=== PATIENT | male | born 1950 | race Caucasian/White ===

== ENCOUNTER → 2017-09-30 11:56 | Outpatient (CLI) | payer MEDICARE, OTHER, SELFPAY ==
[2017-09-30 14:02] LABS: Prostate Specific Ag, Diagnost < 0.05 ng/mL (0.0-4.0)
== END ==
PROVIDERS: Visit Provider Urology
DX: C61 Malignant neoplasm of prostate (principal)
CPT/HCPCS: 36415; 84153

== ENCOUNTER → 2018-04-17 13:31 | Outpatient (CLI) | payer MEDICARE, BC, SELFPAY ==
--- NOTE | 2018-04-17 13:35 | US_ITS ---
US kidney retroperitoneal comp HISTORY: ITS.REASON: renal insuffiency ORDERING PHYSICIAN: Jason Witt MD PATIENT AGE: 68 years Comparison: None FINDINGS: RIGHT KIDNEY:Unremarkable. Normal size and echogenicity. No hydronephrosis. 12 x 6 x 7 cm. No cortical thinning. LEFT KIDNEY:Unremarkable. No hydronephrosis. Normal size and echogenicity. 12 x 6 x 6 cm. No cortical thinning OTHER FINDINGS: Fatty liver noted IMPRESSION: Unremarkable bilateral renal ultrasound
== END ==
PROVIDERS: PCP Nurse Practitioner Family; Visit Provider Urology
DX: N28.9 Disorder of kidney and ureter, unspecified (principal)
CPT/HCPCS: 76770

== ENCOUNTER → 2018-09-02 08:06 | Outpatient (CLI) | payer MEDICARE, BC, SELFPAY ==
--- NOTE | 2018-09-02 08:09 | CT_ITS ---
CT lung screening EXAM: CT LUNG LOW DOSE WO CONTRAST HISTORY: 50 pack-year smoking history, asymptomatic for lung cancer ITS.REASON: CURRENT TOBACCO USE ORDERING PHYSICIAN: Herminio Lakhani MD PATIENT AGE: 68 years COMPARISON: None TECHNIQUE: The exam was performed on a GE Light Speed [address] scanner using 2.90 mGy CTDI. A low dose helical CT CHEST was performed on a multi-detector scanner. All CT scans at the facility use one or more dose reduction, viz: automated exposure control, ma/kV adjustment per patient size (including targeted exams where dose is matched to indication, i.e. head), or iterative reconstruction technique. The LDCT was performed in a facility that meets the criteria for the screening program. Data regarding this exam was submitted to ACR which is an approved registry. The order for this exam indicates that it came as a result of a lung cancer screening counseling shard decision-making visit that included all the elements required of such a visit including smoking cessation. The radiologist interpreting this exam meets the CMS criteria for the LDCT lung cancer screening program. The exam is reported using the Lung-RADS classification scale and reported to the ACR registry. NOTE: This study was performed for the specific purposes of lung cancer screening and is not an alternative to diagnostic chest CT. RADIATION DOSE: CTDI vol(CT dose Index-volume) = 2.90mG DLP (Dose Length Product) = 104.20 mGcm FINDINGS: Hyperinflation with attenuation of the peripheral pulmonary vessels consistent with COPD. There is prominence of the interstitial markings in the periphery of the lung and lung bases with fibrotic changes in the left lower lobe. There is a 6 mm noncalcified nodule in the right middle lobe. Small area of focal fissural thickening in the right minor fissure noted at 7 mm. There is a 4 mm nodule in the left lower lobe Incidental note made of coronary artery calcification. IMPRESSION: 1. Lung RADS Category: 3, probably benign 2. Other findings: Coronary artery calcification, COPD with pulmonary fibrotic changes RECOMMENDATIONS: [address] chest follow-up
== END ==
PROVIDERS: PCP Family Medicine; Visit Provider Family Medicine
DX: Z12.2 Encounter for screening for malignant neoplasm of respiratory organs (principal); Z87.891 Personal history of nicotine dependence

== ENCOUNTER → 2018-10-13 11:21 | Outpatient (CLI) | payer MEDICARE, BC, SELFPAY ==
[2018-10-14 14:48] LABS: PSA, Free <0.01 ng/mL; Prostate Specific Ag <0.1 ng/mL (0.0-4.0)
== END ==
PROVIDERS: Visit Provider Urology
DX: N20.0 Calculus of kidney (principal); C61 Malignant neoplasm of prostate
CPT/HCPCS: 36415; 84153; 84154

== ENCOUNTER → 2019-06-21 08:06 | Outpatient (CLI) | payer MEDICARE, BC, SELFPAY ==
[2019-06-21 08:12] LABS: Microscopic, Urine URINE MICROSCOPIC (MICROSCOPIC)
[2019-06-21 14:21] LABS: Chloride 105 mmol/L (98-107); Sodium 140 mmol/L (136-145)
[2019-06-21 14:22] LABS: Albumin Level 4.5 g/dl (3.5-5.0); Potassium 4.5 mmoL/L (3.5-5.1)
[2019-06-21 14:24] LABS: Blood Urea Nitrogen 16 mg/dl (9-20); Estimated Glomerular Filt Rate 74 ml/min (>60); GFR (African American) 89 ML/MIN (>60)
[2019-06-21 14:25] LABS: Anion Gap 13.5 mEq/L (5-15); Carbon Dioxide 26 mmol/L (22.0-30.0); Phosphorous 3.4 mg/dl (2.5-4.5)
[2019-06-21 14:31] LABS: Calcium 9.8 mg/dl (8.4-10.2); Glucose 129 mg/dl (74-100)
[2019-06-21 14:34] LABS: Basophils % 0.3 % (0.1-2.0); Eosinophils # 0.3 K/mm3 (0.0-0.4); Eosinophils % 3.2 % (0.1-12.0); Hematocrit 49.9 % (42.0-52.0); Hemoglobin 15.7 g/dL (14.1-18.0); Lymphocytes % 22.3 % (10-50); Mean Corpuscular HGB Conc 31.5 g/dL (31.8-35.4); Mean Corpuscular Hemoglobin 33.5 pg (27.0-31.2); Mean Corpuscular Volume 106.5 fl (80-94); Mean Platelet Volume 10.3 fl (7.4-10.4); Monocytes # 0.6 K/mm3 (0.1-1.0); Monocytes % 6.9 % (1.7-9.3); Neutrophils # 5.9 K/mm3 (1.8-7.8); Neutrophils % 67.3 % (37.0-80.0); Platelet Count 192 K/mm3 (142-424); Red Blood Count 4.69 M/mm3 (4.60-6.20); Red Cell Distribution Width 13.5 % (11.5-17.5); White Blood Count 8.8 K/mm3 (4.8-10.8)
[2019-06-21 15:12] LABS: Appearance,Urine CLEAR (Clear); Bilirubin,Urine Negative (Negative); Blood, Urine Negative (Negative); Color,Urine YELLOW (Yellow); Glucose,Urine (UA) Negative (Negative); Ketones,Urine Negative (Negative); Leukocyte Esterase,Urine Negative (Negative); Nitrate,Urine Negative (Negative); PH,Urine 6.5 (5.0-8.5); Protein,Urine TRACE (Negative); Specific Gravity, Urine 1.015 (1.005-1.030); Urobilinogen,Urine 0.2 EU/dl (0.2)
[2019-06-21 15:42] LABS: Creatinine,Urine Random 149 mg/dL (Not Estab.)
[2019-06-21 18:19] LABS: RBC,Urine Occasional #/hpf (0-3); Squamous Epithelial Cell,Urine Occasional #/hpf (0-5)
== END ==
PROVIDERS: Visit Provider Hospitalist
DX: N28.9 Disorder of kidney and ureter, unspecified (principal)
CPT/HCPCS: 36415; 80069; 81001; 82570; 84155; 85025

== ENCOUNTER → 2022-02-25 16:00 | Outpatient (CLI) | payer MEDICARE, BC, SELFPAY ==
[2022-02-25 17:57] LABS: Basophils # 0.2 K/mm3 (0-0.2); Basophils % 1.5 % (0.1-2.0); Eosinophils # 0.4 K/mm3 (0.0-0.4); Eosinophils % 3.4 % (0.1-12.0); Hematocrit 47.8 % (42.0-52.0); Hemoglobin 15.3 g/dL (14.1-18.0); Lymphocytes # 3.5 K/mm3 (0.7-4.5); Lymphocytes % 30.5 % (10-50); Mean Corpuscular Hemoglobin 33.4 pg (27.0-31.2); Mean Corpuscular Volume 104.5 fl (80-94); Mean Platelet Volume 9.6 fl (7.4-10.4); Monocytes # 0.9 K/mm3 (0.1-1.0); Monocytes % 7.5 % (1.7-9.3); Neutrophils # 6.5 K/mm3 (1.8-7.8); Neutrophils % 57.1 % (37.0-80.0); Platelet Count 250 K/mm3 (142-424); Red Blood Count 4.58 M/mm3 (4.60-6.20); Red Cell Distribution Width 13.3 % (11.5-17.5); White Blood Count 11.4 K/mm3 (4.8-10.8)
[2022-02-25 19:37] LABS: Alanine Aminotransferase 37 U/L (12-78); Albumin Level 4.7 g/dl (3.5-5.0); Albumin/Globulin Ratio 1.7 (1.1-1.8); Alkaline Phosphatase 96 U/L (38-126); Anion Gap 20.1 mEq/L (5-15); Aspartate Amino Transferase 49 U/L (17-59); Bilirubin,Total 0.5 mg/dl (0.2-1.3); Blood Urea Nitrogen 37 mg/dl (9-20); Carbon Dioxide 22 mmol/L (22.0-30.0); Chloride 103 mmol/L (98-107); Estimated Glomerular Filt Rate 29 ml/min (>60); GFR (African American) 36 ML/MIN (>60); Globulin 2.8 g/dL (1.3-3.2); Glucose 168 mg/dl (74-100); Potassium 5.1 mmoL/L (3.5-5.1); Sodium 140 mmol/L (136-145); Total Protein,Serum 7.5 g/dl (6.3-8.2)
== END ==
PROVIDERS: PCP Family Medicine; Visit Provider Family Medicine
DX: I10 Essential (primary) hypertension (principal)
CPT/HCPCS: 80053; 85025

== ENCOUNTER → 2022-02-26 09:19 | Outpatient (CLI) | payer MEDICARE, BC, SELFPAY ==
--- NOTE | 2022-02-26 09:25 | XR_ITS ---
FINAL REPORT CLINICAL HISTORY: Acute cough FINDINGS: Two views of the chest were obtained. The heart size and pulmonary vascularity are within normal limits. The mediastinum is normal. There are left lung base opacities worrisome for pneumonia. There is no pneumothorax. The bony thorax is intact. IMPRESSION: Left lung base opacities, worrisome for pneumonia. Reviewed, Interpreted and Dictated by Jaycob Bush III, MD Transcribed by Judi Clinton Authenticated and [facility]
== END ==
PROVIDERS: PCP Family Medicine; Visit Provider Family Medicine
DX: R05.9 Cough, unspecified (principal)
CPT/HCPCS: 71046

== ENCOUNTER → 2022-03-04 09:40 | Outpatient (CLI) | payer MEDICARE, BC, SELFPAY ==
[2022-03-04 19:06] LABS: Basophils # 0.1 K/mm3 (0-0.2); Basophils % 0.4 % (0.1-2.0); Eosinophils # 0.3 K/mm3 (0.0-0.4); Eosinophils % 1.7 % (0.1-12.0); Hematocrit 46.5 % (42.0-52.0); Hemoglobin 14.6 g/dL (14.1-18.0); Lymphocytes # 3.3 K/mm3 (0.7-4.5); Lymphocytes % 20.1 % (10-50); Mean Corpuscular HGB Conc 31.3 g/dL (31.8-35.4); Mean Corpuscular Hemoglobin 33.6 pg (27.0-31.2); Mean Corpuscular Volume 107.1 fl (80-94); Mean Platelet Volume 11.2 fl (7.4-10.4); Monocytes % 5.9 % (1.7-9.3); Neutrophils # 11.7 K/mm3 (1.8-7.8); Platelet Count 256 K/mm3 (142-424); Red Blood Count 4.34 M/mm3 (4.60-6.20); Red Cell Distribution Width 13.3 % (11.5-17.5); White Blood Count 16.2 K/mm3 (4.8-10.8)
[2022-03-04 19:13] LABS: Anion Gap 23.8 mEq/L (5-15); Blood Urea Nitrogen 22 mg/dl (9-20); Calcium 9.8 mg/dl (8.4-10.2); Carbon Dioxide 23 mmol/L (22.0-30.0); Chloride 101 mmol/L (98-107); Estimated Glomerular Filt Rate 35 ml/min (>60); GFR (African American) 42 ML/MIN (>60); Glucose 135 mg/dl (74-100); Potassium 4.8 mmoL/L (3.5-5.1); Sodium 143 mmol/L (136-145)
[2022-03-04 19:18] LABS: MANUAL DIFFERENTIAL MANUAL DIFFERENTIAL (MANUAL DIFF)
[2022-03-04 19:32] LABS: Hemoglobin A1C 7.6 % (4.0-6.0)
[2022-03-04 20:19] LABS: Eosinophils % 1 % (0-3); Lymphocytes % 17 % (10-50); Monocytes % 6 % (2-9); Neutrophils % 76 % (42-76); Total Cells Counted 100
[2022-03-04 20:20] LABS: Macrocytosis 2+
[2022-03-04 20:21] LABS: Platelet Estimate Normal
== END ==
PROVIDERS: PCP Family Medicine; Visit Provider Family Medicine
DX: E11.59 Type 2 diabetes mellitus with other circulatory complications (principal); I15.2 Hypertension secondary to endocrine disorders; N28.9 Disorder of kidney and ureter, unspecified; Z79.84 Long term (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 oral hypoglycemic drugs
CPT/HCPCS: 80048; 83036; 85007; 85025

== ENCOUNTER → 2022-03-11 09:00 | Outpatient (CLI) | payer MEDICARE, BC, SELFPAY ==
[2022-03-11 19:07] LABS: Anion Gap 14.3 mEq/L (5-15); Blood Urea Nitrogen 20 mg/dl (9-20); Carbon Dioxide 27 mmol/L (22.0-30.0); Chloride 105 mmol/L (98-107); Estimated Glomerular Filt Rate 43 ml/min (>60); GFR (African American) 52 ML/MIN (>60); Glucose 152 mg/dl (74-100); Potassium 5.3 mmoL/L (3.5-5.1); Sodium 141 mmol/L (136-145)
[2022-03-11 19:28] LABS: Basophils # 0.1 K/mm3 (0-0.2); Basophils % 0.6 % (0.1-2.0); Eosinophils # 0.3 K/mm3 (0.0-0.4); Eosinophils % 2.7 % (0.1-12.0); Hematocrit 48.3 % (42.0-52.0); Hemoglobin 14.9 g/dL (14.1-18.0); Lymphocytes # 2.6 K/mm3 (0.7-4.5); Lymphocytes % 23.5 % (10-50); Mean Corpuscular HGB Conc 30.8 g/dL (31.8-35.4); Mean Corpuscular Hemoglobin 33.3 pg (27.0-31.2); Mean Platelet Volume 10.5 fl (7.4-10.4); Monocytes # 0.8 K/mm3 (0.1-1.0); Monocytes % 7.7 % (1.7-9.3); Neutrophils # 7.2 K/mm3 (1.8-7.8); Neutrophils % 65.5 % (37.0-80.0); Platelet Count 236 K/mm3 (142-424); Red Blood Count 4.47 M/mm3 (4.60-6.20); Red Cell Distribution Width 13.9 % (11.5-17.5)
[2022-03-11 19:44] LABS: Creatinine,Urine Random 256 mg/dL (Not Estab.); Microalbumin/Creatinine Ratio 119.9
== END ==
PROVIDERS: PCP Nurse Practitioner Family; Visit Provider Nurse Practitioner Family
DX: E11.59 Type 2 diabetes mellitus with other circulatory complications; I15.2 Hypertension secondary to endocrine disorders; Z79.84 Long term (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 oral hypoglycemic drugs
CPT/HCPCS: 80048; 82043; 82570; 85025

== ENCOUNTER → 2022-03-19 11:44 | Outpatient (CLI) | payer MEDICARE, BC, SELFPAY ==
--- NOTE | 2022-03-19 12:29 | XR_ITS ---
FINAL REPORT CLINICAL HISTORY: left rib pain COMPARISON: Prior chest x-ray dated February 2022 FINDINGS: LEFT RIBS WITH CHEST Multiple views of the left ribs were obtained. There is no acute fracture. No pneumothorax is identified. A single PA view of the chest demonstrates mild left base opacity that could represent atelectasis or pneumonia. IMPRESSION: No rib fracture or pneumothorax identified. Mild left base opacity could represent pneumonia or atelectasis. Reviewed, Interpreted and Dictated by Jaycob Bush III, MD Transcribed by Chico Garcia Authenticated and [facility]
== END ==
LOC: ER 12:01 → RAD 12:24
PROVIDERS: PCP Family Medicine; Visit Provider Emergency Medicine
DX: R07.81 Pleurodynia (principal); M25.522 Pain in left elbow; S51.012A Laceration without foreign body of left elbow, initial encounter
CPT/HCPCS: 71101; 87070; 87077; 87186; 87205

== ENCOUNTER → 2022-04-19 10:49 | Outpatient (CLI) | payer MEDICARE, BC, SELFPAY ==
--- NOTE | 2022-04-19 10:49 | CT_ITS ---
FINAL REPORT TECHNIQUE: Thin section axial CT images of the facial bones and sinuses were obtained without contrast. Coronal reformatted images were also obtained.This study was performed with techniques to keep radiation doses as low as reasonably achievable, (ALARA). Individualized dose reduction techniques using automated exposure control or adjustment of mA and/or kV according to the patient''''s size were employed. CLINICAL HISTORY: sinusitis FINDINGS: There is no evidence of mucosal thickening. No fluid levels are identified. The ostiomeatal units have an unremarkable appearance. There is a left-sided nasal septal spur. Nasal septum is midline. No fracture or acute bony abnormality is identified. IMPRESSION: No focal abnormality identified of the sinuses. Reviewed, Interpreted and Dictated by Jaycob Bush III, MD Transcribed by Gaviota Santos Authenticated and [facility]
== END ==
PROVIDERS: PCP Family Medicine; Visit Provider Otolaryngology
DX: J32.8 Other chronic sinusitis (principal)
CPT/HCPCS: 70486

== ENCOUNTER → 2022-05-09 10:39 | Outpatient (CLI) | payer MEDICARE, BC, SELFPAY ==
--- NOTE | 2022-05-09 10:43 | XR_ITS ---
FINAL REPORT CLINICAL HISTORY: follow up pneumonia, cough, congestion COMPARISON: 03/19/2022 FINDINGS: Two views of the chest were obtained. The heart size and pulmonary vascularity are within normal limits. The mediastinum is normal. There are persistent mild bibasilar opacities, favor scarring or atelectasis.. There is no pneumothorax. The bony thorax is intact. IMPRESSION: Persistent mild bibasal opacities. Reviewed, Interpreted and Dictated by Jaycob Bush III, MD Transcribed by Sophia Simeon Authenticated and [facility]
== END ==
PROVIDERS: PCP Family Medicine; Visit Provider Family Medicine
DX: J18.9 Pneumonia, unspecified organism (principal)
CPT/HCPCS: 71046

== ENCOUNTER → 2022-07-02 09:40 | Outpatient (CLI) | payer MEDICARE, BC, SELFPAY ==
[2022-07-02 16:46] LABS: Alanine Aminotransferase 37 U/L (12-78); Albumin Level 4.7 g/dl (3.5-5.0); Albumin/Globulin Ratio 1.7 (1.1-1.8); Alkaline Phosphatase 100 U/L (38-126); Anion Gap 15.2 mEq/L (5-15); Aspartate Amino Transferase 45 U/L (17-59); Bilirubin,Total 0.7 mg/dl (0.2-1.3); Blood Urea Nitrogen 20 mg/dl (9-20); Calcium 9.3 mg/dl (8.4-10.2); Carbon Dioxide 26 mmol/L (22.0-30.0); Chloride 103 mmol/L (98-107); Chol/HDL Ratio 2.4 (1-3.5); Cholesterol 120 mg/dl (140-200); Estimated Glomerular Filt Rate 54 ml/min (>60); GFR (African American) 65 ML/MIN (>60); Globulin 2.8 g/dL (1.3-3.2); Glucose 146 mg/dl (74-100); HDL Cholesterol 50 mg/dl (40-60); Potassium 5.2 mmoL/L (3.5-5.1); Sodium 139 mmol/L (136-145); Total Protein,Serum 7.5 g/dl (6.3-8.2); Triglycerides 152 mg/dl (30-150); VLDL Cholesterol 30 mg/dL (0-40)
[2022-07-02 16:57] LABS: Basophils # 0.1 K/mm3 (0-0.2); Basophils % 0.5 % (0.1-2.0); Direct LDL Cholesterol 53.47 mg/dL (100-129); Eosinophils # 0.3 K/mm3 (0.0-0.4); Eosinophils % 2.3 % (0.1-12.0); Hematocrit 49.4 % (42.0-52.0); Hemoglobin 15.7 g/dL (14.1-18.0); Lymphocytes # 2.2 K/mm3 (0.7-4.5); Lymphocytes % 18.8 % (10-50); Mean Corpuscular HGB Conc 31.7 g/dL (31.8-35.4); Mean Corpuscular Hemoglobin 32.6 pg (27.0-31.2); Mean Corpuscular Volume 102.9 fl (80-94); Mean Platelet Volume 10.7 fl (7.4-10.4); Monocytes # 0.8 K/mm3 (0.1-1.0); Neutrophils # 8.3 K/mm3 (1.8-7.8); Neutrophils % 71.4 % (37.0-80.0); Platelet Count 239 K/mm3 (142-424); Red Cell Distribution Width 13.3 % (11.5-17.5); White Blood Count 11.6 K/mm3 (4.8-10.8)
[2022-07-02 17:12] LABS: Hemoglobin A1C 7.3 % (4.0-6.0)
[2022-07-02 17:17] LABS: Thyroid Stimulating Hormone 1.42 uIU/mL (0.465-4.68)
== END ==
PROVIDERS: PCP Family Medicine; Visit Provider Family Medicine
DX: I10 Essential (primary) hypertension; Z00.00 Encounter for general adult medical examination without abnormal findings; E11.9 Type 2 diabetes mellitus without complications; Z79.84 Long term (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 oral hypoglycemic drugs; Z79.899 Other long term (current) drug therapy
CPT/HCPCS: 80053; 80061; 83036; 84443; 85025

== ENCOUNTER → 2022-07-16 09:26 | Outpatient (CLI) | payer MEDICARE, BC, SELFPAY ==
--- NOTE | 2022-07-16 09:32 | US_ITS ---
FINAL REPORT CLINICAL HISTORY: RUQ and RLQ abdominal pain FINDINGS: Sonographic images of the abdomen were obtained. There is coarsened hepatic echotexture of uncertain significance but can be seen with cirrhosis. There is a gallstone in the gallbladder. There is no evidence of biliary ductal dilatation. The common hepatic duct measures 2 mm, which is within normal limits. Limited images of the pancreas are unremarkable. The spleen size is normal. The right kidney measures 10.7 cm in length. The left kidney measures 11.6 cm in length. There is normal renal echogenicity. There is no evidence of hydronephrosis. The aorta has an unremarkable appearance. Limited images of the inferior vena cava are unremarkable. IMPRESSION: Possible cirrhosis. Cholelithiasis. Reviewed, Interpreted and Dictated by Jaycob Bush III, MD Transcribed by Yue Machado Authenticated and [facility]
== END ==
PROVIDERS: PCP Family Medicine; Visit Provider Family Medicine
DX: R10.9 Unspecified abdominal pain (principal)
CPT/HCPCS: 76700

== ENCOUNTER → 2022-08-08 11:02 | Outpatient (CLI) | payer MEDICARE, BC, SELFPAY ==
--- NOTE | 2022-08-08 11:22 | XR_ITS ---
FINAL REPORT CLINICAL HISTORY: Chronic cough COMPARISON: 05/09/2022 FINDINGS: There is no evidence of effusion or other pleural disease. There are chronic interstitial changes. The mediastinum has a normal appearance. The cardiac silhouette is unremarkable. IMPRESSION: No acute process. Reviewed, Interpreted and Dictated by Dev Martinez MD Transcribed by Jyoti Castellano Authenticated and . [facility]
[2022-08-09 12:37] LABS: AFP, Tumor Marker 3.3 ng/mL (0.0-8.4)
[2022-08-24 17:48] LABS: Alpha 2-Macroglobulins, Qn 433; Apolipoprotein A-1 159; Haptoglobin 243
[2022-08-24 17:49] LABS: ALT (SGPT) P5P 24; AST (SGOT) P5P 32; Bilirubin, Total 0.4; Cholesterol, Total 131; GGT 93; Glucose 197; Triglycerides 174
== END ==
PROVIDERS: PCP Family Medicine; Visit Provider Nurse Practitioner
DX: K74.60 Unspecified cirrhosis of liver (principal)
CPT/HCPCS: 36415; 71046; 82105

== ENCOUNTER 2022-09-05 10:16 | Day surgery (SDC) | payer MEDICARE, BC, SELFPAY ==
[2022-08-21 12:58] VITALS: BMI 30.5
[2022-09-05] VITALS (7 sets, daily range): BP systolic 110–156; BP diastolic 58–82; PULSE 58–69; RESP 14–18; TEMP 36.1–36.5; O2SAT 95–98; BMI 30.5
[2022-09-05 10:42] LABS: POC Glucose,Bedside 163 (70-110)
--- NOTE | 2022-09-05 11:08 | EXP.ANES.CKL ---
[facility] Disclaimer: The information contained in this section may have been updated after the patient was seen, as this information can be updated by other users. Medical History Anal fissure Cirrhosis of liver COPD (chronic obstructive pulmonary disease) Diabetes type 2, controlled ETD (eustachian tube dysfunction) GERD (gastroesophageal reflux disease) History of hemorrhoids History of rectal fissure Hyperlipidemia associated with type 2 diabetes mellitus Hypertension associated with diabetes Prostate cancer Renal insufficiency Torn Achilles tendon Surgical History History of colonoscopy History of hand surgery History of hernia repair History of prostate surgery History of tonsillectomy Hx of hemorrhoidectomy Family History Father Cancer Heart attack Stroke Mother Heart attack Stroke Social History Smoking Status: Current every day smoker tobacco type: cigarettes packs per day: 1 pack-years: 60 alcohol intake: never substance use type: denies use current occupational status: retired Travel in the last 8 weeks: None household members: spouse housing: house marital status: education level: vocational service: No caffeine: Yes special roxanne needs: No do you feel safe at home: Yes victim of physical abuse: No victim of emotional abuse: No victim of sexual abuse: No would you like helpful sources: No [facility] Anesthesia Checklist Patient Identification Patient Identification: Verbal (Name & ) Structural Data Admitted From: Home Planned Operative Procedure/s: colonoscopy Consent for Planned Operative Procedure(s) Verified: Yes Airway Assessment C-Spine Mobility Assessed: Yes TMJ Mobility Assessed: Yes Dentition: Poor Dentition Neurological Assessment Level of Consciousness: Awake, Alert and Appropriate Anesthesia Plan Anesthesia Risk discussed: Yes Anesthesia Plan: Verified ASA Class: III Anesthesia Type: MAC
--- NOTE | 2022-09-05 11:20 | EXP.ANES.CKL ---
[facility] Disclaimer: The information contained in this section may have been updated after the patient was seen, as this information can be updated by other users. Medical History Anal fissure Cirrhosis of liver COPD (chronic obstructive pulmonary disease) Diabetes type 2, controlled ETD (eustachian tube dysfunction) GERD (gastroesophageal reflux disease) History of hemorrhoids History of rectal fissure Hyperlipidemia associated with type 2 diabetes mellitus Hypertension associated with diabetes Prostate cancer Renal insufficiency Torn Achilles tendon Surgical History History of colonoscopy History of hand surgery History of hernia repair History of prostate surgery History of tonsillectomy Hx of hemorrhoidectomy Family History Father Cancer Heart attack Stroke Mother Heart attack Stroke Social History Smoking Status: Current every day smoker tobacco type: cigarettes packs per day: 1 pack-years: 60 alcohol intake: never substance use type: denies use current occupational status: retired Travel in the last 8 weeks: None household members: spouse housing: house marital status: education level: vocational service: No caffeine: Yes special roxanne needs: No do you feel safe at home: Yes victim of physical abuse: No victim of emotional abuse: No victim of sexual abuse: No would you like helpful sources: No [facility] Anesthesia Checklist Patient Identification Patient Identification: Verbal (Name & ) Structural Data Admitted From: Home Planned Operative Procedure/s: colonoscopy Consent for Planned Operative Procedure(s) Verified: Yes Airway Assessment C-Spine Mobility Assessed: Yes TMJ Mobility Assessed: Yes Dentition: Good Dentition Neurological Assessment Level of Consciousness: Awake, Alert and Appropriate Anesthesia Plan Anesthesia Risk discussed: Yes Anesthesia Plan: Verified ASA Class: II Anesthesia Type: MAC
--- NOTE | 2022-09-05 11:40 | HMH.SCOPE ---
Procedure: Date: 09/05/22 Patient Date of :: 1950 Procedure Performed:: Screening colonoscopy Indications:: Family history of colon cancer, chronic abdominal pain Performing Provider:: Elly Nieves MD Referring Provider:: Ene Nieves APRN Sedation:: Propofol Procedure:: After placing the patient in the left lateral decubitus position, the colonoscopy was gently inserted into the rectum and under direct visualization advanced to the cecum which was identified by transillumination in the right lower quadrant, identification of the ileocecal valve, appendiceal orifice, and cecal strap. Color, texture, mucosa, and anatomy of the colon were carefully examined with the scope. Findings:: Anal canal: normal Rectum: normal Sigmoid colon: normal without polyps or inflammatory changes Descending colon: normal without polyps or inflammatory changes Splenic flexure: normal Transverse colon: normal without polyps or inflammatory changes Hepatic flexure: normal Ascending colon: normal without polyps or inflammatory changes Cecum: normal Terminal ileum: not visualized Impression: Normal colonoscopy Pain most likely related to adhesion and mesh Recommendations:: Follow up examination in about FIVE years or so, sooner if clinically indicated. Complications:: None Estimated blood obtained (mL): 0
== END 2022-09-05 12:25 | disposition home or self-care (01) ==
PROVIDERS: PCP Family Medicine; Visit Provider Internal Medicine Gastroenterology
PROC: 0DJD8ZZ Inspection of Lower Intestinal Tract, Via Natural or Artificial Opening Endoscopic (ICD-10-PCS; CPT 45378; principal; 2022-09-05 11:30)
DX: R10.9 Unspecified abdominal pain (principal); G89.29 Other chronic pain; E11.9 Type 2 diabetes mellitus without complications; F17.210 Nicotine dependence, cigarettes, uncomplicated; Z80.0 Family history of malignant neoplasm of digestive organs; Z79.899 Other long term (current) drug therapy
CPT/HCPCS: G0105; 82962

== ENCOUNTER → 2022-10-02 11:17 | Outpatient (CLI) | payer MEDICARE, BC, SELFPAY ==
--- NOTE | 2022-10-02 11:20 | XR_ITS ---
FINAL REPORT CLINICAL HISTORY: Left elbow pain COMPARISON: None FINDINGS: 2 views of the elbow were obtained. There is no acute fracture or dislocation. There is mild degenerative change. There is a chronic calcification adjacent to the medial humeral epicondyles measuring 13 mm. IMPRESSION: No acute bony abnormality. Reviewed, Interpreted and Dictated by Jaycob Bush III, MD Transcribed by Sophia Simeon Authenticated and . [facility]
== END ==
PROVIDERS: PCP Family Medicine; Visit Provider Family Medicine
DX: M25.522 Pain in left elbow (principal)
CPT/HCPCS: 73070

== ENCOUNTER → 2022-10-31 23:35 | Outpatient (CLI) | payer MEDICARE, BC, SELFPAY ==
[2022-10-31 16:31] LABS: Basophils % 0.3 % (0.1-2.0); Eosinophils # 0.3 K/mm3 (0.0-0.4); Eosinophils % 2.2 % (0.1-12.0); Hematocrit 51.1 % (42.0-52.0); Lymphocytes # 2.4 K/mm3 (0.7-4.5); Lymphocytes % 19.7 % (10-50); Mean Corpuscular HGB Conc 31.3 g/dL (31.8-35.4); Mean Corpuscular Hemoglobin 32.2 pg (27.0-31.2); Mean Corpuscular Volume 102.9 fl (80-94); Mean Platelet Volume 11.5 fl (7.4-10.4); Monocytes % 7.8 % (1.7-9.3); Neutrophils # 8.5 K/mm3 (1.8-7.8); Neutrophils % 69.9 % (37.0-80.0); Platelet Count 193 K/mm3 (142-424); Red Blood Count 4.97 M/mm3 (4.60-6.20); Red Cell Distribution Width 13.9 % (11.5-17.5); White Blood Count 12.2 K/mm3 (4.8-10.8)
[2022-10-31 16:37] LABS: Chloride 108 mmol/L (98-107); Potassium 5.1 mmoL/L (3.5-5.1); Sodium 140 mmol/L (136-145)
[2022-10-31 16:39] LABS: Blood Urea Nitrogen 18 mg/dl (9-20); Estimated Glomerular Filt Rate 50 ml/min (>60); GFR (African American) 60 ML/MIN (>60)
[2022-10-31 16:40] LABS: Alanine Aminotransferase 34 U/L (12-78); Albumin Level 4.6 g/dl (3.5-5.0); Albumin/Globulin Ratio 1.6 (1.1-1.8); Alkaline Phosphatase 105 U/L (38-126); Anion Gap 14.1 mEq/L (5-15); Aspartate Amino Transferase 46 U/L (17-59); Bilirubin,Total 0.7 mg/dl (0.2-1.3); Calcium 10.1 mg/dl (8.4-10.2); Carbon Dioxide 23 mmol/L (22.0-30.0); Chol/HDL Ratio 2.6 (1-3.5); Cholesterol 138 mg/dl (140-200); Globulin 2.8 g/dL (1.3-3.2); Glucose 118 mg/dl (74-100); HDL Cholesterol 53 mg/dl (40-60); Total Protein,Serum 7.4 g/dl (6.3-8.2); Triglycerides 243 mg/dl (30-150); VLDL Cholesterol 49 mg/dL (0-40)
[2022-10-31 16:51] LABS: Direct LDL Cholesterol 64.48 mg/dL (100-129)
[2022-10-31 17:50] LABS: Hemoglobin A1C 7.2 % (4.0-6.0)
[2022-10-31 17:51] LABS: Creatinine,Urine Random 342 mg/dL (Not Estab.)
[2022-10-31 21:36] LABS: Microalbumin/Creatinine Ratio 170.4
== END ==
PROVIDERS: PCP Family Medicine; Visit Provider Family Medicine
DX: E11.9 Type 2 diabetes mellitus without complications (principal); I10 Essential (primary) hypertension; Z79.84 Long term (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 oral hypoglycemic drugs
CPT/HCPCS: 80053; 80061; 82043; 82570; 83036; 85025

== ENCOUNTER → 2023-02-25 08:52 | Outpatient (CLI) | payer MEDICARE, BC, SELFPAY ==
[2023-02-25 17:32] LABS: Basophils # 0.1 K/mm3 (0-0.2); Basophils % 0.4 % (0.1-2.0); Eosinophils # 0.2 K/mm3 (0.0-0.4); Eosinophils % 1.1 % (0.1-12.0); Hematocrit 50.2 % (42.0-52.0); Hemoglobin 16.4 g/dL (14.1-18.0); Mean Corpuscular HGB Conc 32.7 g/dL (31.8-35.4); Mean Corpuscular Hemoglobin 34.3 pg (27.0-31.2); Mean Platelet Volume 10.5 fl (7.4-10.4); Monocytes # 0.8 K/mm3 (0.1-1.0); Monocytes % 5.9 % (1.7-9.3); Neutrophils # 9.5 K/mm3 (1.8-7.8); Neutrophils % 70.7 % (37.0-80.0); Platelet Count 222 K/mm3 (142-424); Red Blood Count 4.78 M/mm3 (4.60-6.20); Red Cell Distribution Width 13.3 % (11.5-17.5); White Blood Count 13.5 K/mm3 (4.8-10.8)
[2023-02-25 18:08] LABS: Alanine Aminotransferase 29 U/L (12-78); Albumin Level 4.3 g/dl (3.5-5.0); Albumin/Globulin Ratio 1.5 (1.1-1.8); Alkaline Phosphatase 72 U/L (38-126); Anion Gap 12.9 mEq/L (5-15); Aspartate Amino Transferase 37 U/L (17-59); Bilirubin,Total 0.7 mg/dl (0.2-1.3); Blood Urea Nitrogen 27 mg/dl (9-20); Calcium 9.6 mg/dl (8.4-10.2); Carbon Dioxide 29 mmol/L (22.0-30.0); Chloride 101 mmol/L (98-107); Chol/HDL Ratio 2.4 (1-3.5); Cholesterol 124 mg/dl (140-200); Estimated Glomerular Filt Rate 46 ml/min (>60); GFR (African American) 55 ML/MIN (>60); Globulin 2.8 g/dL (1.3-3.2); Glucose 91 mg/dl (74-100); HDL Cholesterol 51 mg/dl (40-60); Potassium 5.9 mmoL/L (3.5-5.1); Sodium 137 mmol/L (136-145); Total Protein,Serum 7.1 g/dl (6.3-8.2); Triglycerides 125 mg/dl (30-150); VLDL Cholesterol 25 mg/dL (0-40)
[2023-02-25 18:19] LABS: Direct LDL Cholesterol 62.43 mg/dL (100-129)
[2023-02-25 18:32] LABS: Hemoglobin A1C 6.6 % (4.0-6.0)
== END ==
PROVIDERS: PCP Family Medicine; Visit Provider Family Medicine
DX: I10 Essential (primary) hypertension (principal); Z00.00 Encounter for general adult medical examination without abnormal findings; E11.8 Type 2 diabetes mellitus with unspecified complications; Z79.84 Long term (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 oral hypoglycemic drugs; Z72.0 Tobacco use
CPT/HCPCS: 80053; 80061; 83036; 85025

== ENCOUNTER → 2023-02-26 07:35 | Outpatient (CLI) | payer MEDICARE, BC, SELFPAY ==
--- NOTE | 2023-02-26 07:35 | US_ITS ---
FINAL REPORT CLINICAL HISTORY: f/u on u/s 06/2022--- six month f/u eval COMPARISON: 07/16/2022 FINDINGS: Sonographic images of the right upper quadrant were obtained. The pancreas is unremarkable in appearance. There is persistent coarsening of the echotexture of the liver, that may represent fatty infiltration or cirrhosis. There is a gallstone present in the gallbladder. There is no evidence of biliary ductal dilatation.The common duct measures 3 mm. Limited images of the right kidney are unremarkable. IMPRESSION: Coarsening of the echotexture of the liver, fatty infiltration or cirrhosis, unchanged since the prior ultrasound of July. Gallstone present in the gallbladder without biliary ductal dilatation. Reviewed, Interpreted and Dictated by Jaycob Bush III, MD Transcribed by Machelle Aceves Authenticated and [facility]
== END ==
PROVIDERS: PCP Family Medicine; Visit Provider Nurse Practitioner
DX: K74.60 Unspecified cirrhosis of liver (principal)
CPT/HCPCS: 76705

== ENCOUNTER → 2023-03-07 07:07 | Outpatient (CLI) | payer MEDICARE, BC, SELFPAY ==
[2023-03-07 07:51] LABS: INR 0.95 (0.9-1.1); Prothrombin Time 10.3 seconds (10.1-12.5)
[2023-03-12 21:13] LABS: Fibrosis Score 0.76
[2023-03-12 21:14] LABS: Fibrosis Stage F4
[2023-03-12 21:15] LABS: Steatosis Score 0.67
[2023-03-12 21:16] LABS: NASH Grade N3; NASH Score 0.89; Steatosis Grade S2-S3
[2023-03-12 21:17] LABS: ALT (SGPT) P5P 39; AST (SGOT) P5P 36; Alpha 2-Macroglobulins, Qn 470; Apolipoprotein A-1 176; Bilirubin, Total 0.6; GGT 148; Haptoglobin 259
[2023-03-12 21:18] LABS: Cholesterol, Total 151; Glucose 157; Triglycerides 159
== END ==
PROVIDERS: PCP Family Medicine; Visit Provider Nurse Practitioner
DX: K76.0 Fatty (change of) liver, not elsewhere classified (principal); R10.9 Unspecified abdominal pain
CPT/HCPCS: 36415; 85610

== ENCOUNTER → 2023-03-27 09:25 | Outpatient (CLI) | payer MEDICARE, BC, SELFPAY ==
[2023-03-27 10:10] LABS: Basophils # 0.1 K/mm3 (0-0.2); Basophils % 0.6 % (0.1-2.0); Eosinophils # 0.2 K/mm3 (0.0-0.4); Eosinophils % 2.1 % (0.1-12.0); Hematocrit 50.4 % (42.0-52.0); Hemoglobin 16.5 g/dL (14.1-18.0); Lymphocytes # 2.3 K/mm3 (0.7-4.5); Lymphocytes % 27.8 % (10-50); Mean Corpuscular HGB Conc 32.8 g/dL (31.8-35.4); Mean Corpuscular Hemoglobin 34.4 pg (27.0-31.2); Mean Corpuscular Volume 104.9 fl (80-94); Mean Platelet Volume 9.5 fl (7.4-10.4); Monocytes # 0.7 K/mm3 (0.1-1.0); Monocytes % 8.2 % (1.7-9.3); Neutrophils % 61.4 % (37.0-80.0); Platelet Count 168 K/mm3 (142-424); Red Blood Count 4.81 M/mm3 (4.60-6.20); Red Cell Distribution Width 13.5 % (11.5-17.5); White Blood Count 8.2 K/mm3 (4.8-10.8)
[2023-03-27 10:18] LABS: INR 0.95 (0.9-1.1); Prothrombin Time 10.3 seconds (10.1-12.5)
[2023-03-27 11:01] LABS: Chloride 102 mmol/L (98-107); Sodium 140 mmol/L (136-145)
[2023-03-27 11:04] LABS: Alanine Aminotransferase 39 U/L (12-78); Albumin Level 4.9 g/dl (3.5-5.0); Albumin/Globulin Ratio 1.8 (1.1-1.8); Alkaline Phosphatase 96 U/L (38-126); Aspartate Amino Transferase 49 U/L (17-59); Bilirubin,Total 0.8 mg/dl (0.2-1.3); Blood Urea Nitrogen 37 mg/dl (9-20); Carbon Dioxide 26 mmol/L (22.0-30.0); Estimated Glomerular Filt Rate 35 ml/min (>60); GFR (African American) 42 ML/MIN (>60); Globulin 2.8 g/dL (1.3-3.2); Total Protein,Serum 7.7 g/dl (6.3-8.2)
[2023-03-27 11:05] LABS: Calcium 9.8 mg/dl (8.4-10.2); Glucose 108 mg/dl (74-100)
[2023-03-28 11:09] LABS: AFP, Tumor Marker 2.5 ng/mL (0.0-8.4)
== END ==
LOC: LAB 09:26
PROVIDERS: PCP Family Medicine; Visit Provider Nurse Practitioner
DX: K74.60 Unspecified cirrhosis of liver (principal); K76.0 Fatty (change of) liver, not elsewhere classified; R10.31 Right lower quadrant pain
CPT/HCPCS: 36415; 80053; 82105; 85025; 85610

== ENCOUNTER 2023-03-27 12:03 | Observation (INO) | payer MEDICARE, BC, SELFPAY ==
[2023-03-27 12:04] VITALS: BP 155/85; PULSE 68; RESP 19; TEMP 36.4; O2SAT 95; BMI 30.5
--- NOTE | 2023-03-27 12:10 | ECG_ITS ---
APPROVED REPORT Exam: Resting ECG HR:65 bpm ECG Measurements Heart Rate 65 AXES KS 172 P 67 QRSd 133 QRS 86 QT 411 T 55 QTc 423 Conclusion SINUS RHYTHM RIGHT BUNDLE BRANCH BLOCK [120+ ms QRS DURATION, UPRIGHT V1, 40+ ms S IN I/aVL/V4/V5/V6] ABNORMAL ECG UNCONFIRMED REPORT Electronically signed by : Star Veronica MD 03/27/2023 19:43:53
--- NOTE | 2023-03-27 12:26 | PC.NURSE ---
DR LUNDY AT BEDSIDE
[2023-03-27 12:27] VITALS: BMI 31.8
--- NOTE | 2023-03-27 12:36 | PC.NURSE ---
DR LUNDY SPEAKING WITH HOSPITALIST FOR ADMISSION
[2023-03-27 12:37] VITALS: O2SAT 96
--- NOTE | 2023-03-27 12:37 | PC.NURSE ---
CARE MANAGEMENT NOTIFIED OF ADMISSION
--- NOTE | 2023-03-27 12:38 | HMH.EDGENADL ---
Discharge Plan Disposition Patient Disposition: Admitted Prescriptions Prescriptions: No Action multivitamin capsule 1 cap PO QAM albuterol sulfate 90 mcg/actuation HFA aerosol inhaler 2 puff IH Q4-6H 90 Days Qty: 8.5 2RF docusate sodium 100 mg capsule 300 mg PO BID 30 Days Qty: 180 2RF ascorbic acid (vitamin C) 1,000 mg capsule 1 g PO BID 90 Days Qty: 180 0RF amlodipine 5 mg tablet 5 mg PO DAILY 30 Days Qty: 30 2RF benazepril [Lotensin] 40 mg tablet 40 mg PO DAILY 30 Days Qty: 30 2RF Rx Instructions: Cardiology 10/2022 clonidine HCl 0.2 mg tablet 0.2 mg PO BID 30 Days Qty: 60 2RF glipizide 10 mg tablet 10 mg PO BID 30 Days Qty: 60 2RF hydrochlorothiazide 25 mg tablet 25 mg PO DAILY 30 Days Qty: 30 2RF metoprolol succinate 200 mg tablet extended release 24 hr 200 mg PO DAILY 30 Days Qty: 30 2RF pantoprazole 40 mg tablet,delayed release (DR/EC) 40 mg PO BID 30 Days Qty: 60 2RF rosuvastatin 40 mg tablet 40 mg PO DAILY 30 Days Qty: 30 2RF Rybelsus 7 mg tablet 7 mg PO DAILY Qty: 30 2RF Janumet 50-1,000 mg tablet 1 tab PO BID 30 Days Qty: 60 2RF aspirin 325 mg Tablet 325 mg PO DAILY peg 3350-electrolytes [GaviLyte-G] 236-22.74-6.74 -5.86 gram recon soln 240 ml PO Q10M Rx Instructions: until fecal effluent is clear follow mailed instructions Referrals Follow up/Referrals: Otilio Menendez MD [Primary Care Provider] - See instructions Clinical Impressions Clinical Impression: Acute hyperkalemia, CKD (chronic kidney disease) Discharge ED Provider: Gloria Cruz General Adult HPI General Chief complaint: Recheck/Abnormal Lab/Rx Stated complaint: sent by Dr Nieves high potassium Time Seen by Provider: 03/27/23 12:23 Mode of Arrival: Family Vehicle Source of Information: Patient and Medical Record Limitations: No Limitations Description of Symptoms (Recalled from ER Triage Doc. by RN): Pt presents to ER per AZAM Nieves d/t elevated potassium of 6. He denies any hx of hyperkalemia. States Dr. Nieves is working him up for hepatits. Denies any n/v/d, fever, chills, or body aches. Reports chronic RLQ ABD pain. History of Present Illness HPI narrative: Is a 73-year-old male sent into the emergency department by Dr. Berkowitz who was doing routine labs and found the patient to have an elevated potassium of 6. Of note patient recently had a potassium of 5.9 within the last few weeks but nothing was done acutely for it to my knowledge. Patient denies any other symptoms at the moment he is on an MARIANA inhibitor does not appear to be on any other medications from historical standpoint that could be causing hyperkalemia. Additionally the patient was being worked up for cirrhosis in an outpatient setting but has had no other symptoms or complications of that. Related Data Home Medications Medication Instructions Recorded Confirmed multivitamin 1 cap PO QAM Supplement 09/30/17 03/13/23 aspirin 325 mg tablet 325 mg PO DAILY prevention 08/13/22 03/13/23 peg 3350-electrolytes 236 240 ml PO Q10M prep 08/13/22 03/13/23 gram-22.74 gram-6.74 gram-5.86 gram solution (GaviLyte-G) Previous Rx's Medication Instructions Recorded albuterol sulfate 90 mcg/actuation 2 puff inhalation Q4-6H COPD 90 12/27/21 aerosol inhaler days #8.5 grams docusate sodium 100 mg capsule 300 mg PO BID constipation 30 days 12/27/21 #180 caps ascorbic acid (vitamin C) 1,000 mg 1 g PO BID supplement 90 days #180 12/27/22 capsule caps amlodipine 5 mg tablet 5 mg PO DAILY HTN 30 days #30 tabs 03/26/23 benazepril 40 mg tablet (Lotensin) 40 mg PO DAILY 30 days #30 tabs 03/26/23 clonidine HCl 0.2 mg tablet 0.2 mg PO BID Anxiety 30 days #60 03/26/23 tabs glipizide 10 mg tablet 10 mg PO BID Diabetes 30 days #60 03/26/23 tabs hydrochlorothiazide 25 mg tablet 25 mg PO DAILY 30 days #30 tabs 03/26/23 metoprolol succinate 200 mg 200 mg PO DAILY htn 30 days #30
--- NOTE | 2023-03-27 13:00 | PC.NURSE ---
Gave report to Dianna Adair RN on Med/Surg
[2023-03-27 13:01] VITALS: BP 145/80; PULSE 65; RESP 18; TEMP 36.5; O2SAT 95
--- NOTE | 2023-03-27 13:10 | PC.NURSE ---
arrived by w/c from ED
[2023-03-27 13:14] VITALS: BP 151/74; PULSE 65; RESP 18; O2SAT 96
[2023-03-27 13:15] VITALS: BMI 29.4
--- NOTE | 2023-03-27 13:15 | PC.NURSE ---
Called pt's per pt request to update her that pt is being admitted.
--- NOTE | 2023-03-27 14:11 | HMH.PHAINT1 ---
Pharmacy Intervention Comments: Home meds verified with patient at bedside and with external pharmacy list.
[2023-03-27 15:23] VITALS: BP 140/78; PULSE 64; RESP 18; TEMP 36.6; O2SAT 96
[2023-03-27 15:52] LABS: Chloride 104 mmol/L (98-107); Sodium 139 mmol/L (136-145)
--- NOTE | 2023-03-27 15:52 | HMH.PTEV ---
Physical Therapy Evaluation Rehab PT IP Evaluation Start: 03/27/23 15:12 Freq: ONCE Status: Active Protocol: Document 03/27/23 15:46 KAUSHAL (Rec: 03/27/23 15:52 KAUSHAL [id number]) Subjective/History History History Pt is a 73 y/o male sent into the emergency department by Dr Edin Berkowitz who was doing routine labs and found the patient to have an elevated potassium of 6. Of note patient recently had a potassium of 5.9 within the last few weeks but nothing was done acutely for it to my knowledge. Patient denies any other symptoms at the moment he is on an MARIANA inhibitor does not appear to be on any other medications from historical standpoint that could be causing hyperkalemia. Additionally the patient was being worked up for cirrhosis in an outpatient setting but has had no other symptoms or complications of that. Subjective Subjective Pt reports he lives in a single-story home with 1 step to enter with his . Pt reports he is independent with ambulation, ADLs and iADLs. Pt reports he walks on the treadmill for 45 minutes each day. Pt reports he feels fine but was told his potassium levels are too high which could cause a heart attack. New diagnosis of cancer in past 12 Yes months? Rehab PT IP Eval Objective Appearance Patient Behavior Appropriate,Cooperative Patient Orientation Person,Place,Name,Birthday Difficulty following instructions none Speech Pattern Clear,Appropriate Ambulation Patient Able to Ambulate Yes Ambulation Observation IP General Gait Pattern Observation No Deviations/Normal Ambulation Distance (feet) 100 Ambulation Assistive Device None Ambulation Ability Independent Balance Ability to Arise Able, uses arms to help Sitting Balance Steady, safe Standing Balance Narrow stance w/o support Dynamic Sitti
[2023-03-27 15:55] LABS: Anion Gap 18.4 mEq/L (5-15); Blood Urea Nitrogen 35 mg/dl (9-20); Carbon Dioxide 21 mmol/L (22.0-30.0); Creatinine Clearance Estimated 53 mL/min (50-200); Estimated Glomerular Filt Rate 40 ml/min (>60); GFR (African American) 48 ML/MIN (>60); Potassium 4.4 mmoL/L (3.5-5.1)
[2023-03-27 15:56] LABS: Calcium 9.2 mg/dl (8.4-10.2); Glucose 89 mg/dl (74-100)
--- NOTE | 2023-03-27 16:09 | HMH.OTEV ---
OT Inpatient Evaluation Rehab OT IP Evaluation Start: 03/27/23 15:12 Freq: ONCE Status: Active Protocol: Document 03/27/23 16:02 NATHAN (Rec: 03/27/23 16:08 [id number] Rehab OT IP Assessment Subjective History Pt oriented x 3 on arrival. Pt agreeable to engage in therapy evaluation. Pt admitted today due to hyperkalemia. Is a 73-year- old male sent into the emergency department by Dr. Berkowitz who was doing routine labs and found the patient to have an elevated potassium of 6. Of note patient recently had a potassium of 5.9 within the last few weeks but nothing was done acutely for it to my knowledge. Patient denies any other symptoms at the moment he is on an MARIANA inhibitor does not appear to be on any other medications from historical standpoint that could be causing hyperkalemia. Additionally the patient was being worked up for cirrhosis in an outpatient setting but has had no other symptoms or complications of that. Prior to being in the hospital , pt lived at home with his . Pt reports normally he is independent with all ADLs and IADLs. He does not require any type of AE during functional tranfers. Pt also still drives. Subjective I exercise everyday. Objective Patient Orientation Person,Place,Birthday Right Upper Extremity Gross ROM WFL Left Upper Extremity Gross ROM WFL Transfer Training Sit/Stand Transfer Assist Level Supervision/Stand by Chair Transfer Ability Supervision/Stand by Chair Transfer Technique Sit to/from Ambulatory Chair Transfer Assistive Devices None Lower Body Dressing Ability Standby Assistance Rehab OT IP prob,goals,plan Problems Date of Evaluation: 03/27/23 Rehab Potential Rehab Potential Innapropriate for Skilled
--- NOTE | 2023-03-27 17:58 | EXP.HP ---
History of Present Illness *Admission Date: 03/27/23 *Reason for visit:: Hyperkalemia *History of present illness: Patient is a 73-year-old male with past medical history of CKD, tobacco use who presented to hospital for abnormal blood work. According to patient he was informed his potassium was significantly abnormal and he needs to come to the emergency department. Patient denies any chest pain shortness of breath nausea vomiting diarrhea constipation dysuria fevers and chills. Patient had a blood work performed at his GI office for workup of his cirrhosis. [facility] Disclaimer: The information contained in this section may have been updated after the patient was seen, as this information can be updated by other users. Medical History Anal fissure Cirrhosis of liver We will follow-up today with an AFP hepatitis panel and FibroSure. Patient states he has not had a hepatitis panel has never been known to have hepatitis. Plan for repeat ultrasound in 6 months (ordered). For evaluation of cirrhotic changes COPD (chronic obstructive pulmonary disease) Diabetes type 2, controlled ETD (eustachian tube dysfunction) Right-sided - longstanding GERD (gastroesophageal reflux disease) Denies any problems with the GERD at this moment in time. We will continue on meds as are previously given. Advised to RTC if issues increase or difficulty swallowing History of hemorrhoids History of rectal fissure x 3 surgery Hyperlipidemia associated with type 2 diabetes mellitus Hypertension associated with diabetes Prostate cancer Renal insufficiency Torn Achilles tendon Surgical History History of colonoscopy History of hand surgery History of hernia repair History of prostate surgery History of tonsillectomy Hx of hemorrhoidectomy x 9 Family History Father Cancer Heart attack Stroke Mother Heart attack Stroke Social History Smoking Status: Current every day smoker tobacco type: cigarettes packs per day: 1 alcohol intake: never substance use type: denies use current occupational status: retired Travel in the last 8 weeks: None household members: spouse housing: house marital status: education level: vocational service: No caffeine: Yes special roxanne needs: No do you feel safe at home: Yes victim of physical abuse: No victim of emotional abuse: No victim of sexual abuse: No would you like helpful sources: No Review of Systems Review of Systems Review of systems (narrative): as per [facility] Meds Home Medications and Allergies Home Medications Medication Instructions Recorded Confirmed Type multivitamin 1 cap PO QAM Supplement 09/30/17 03/27/23 History docusate sodium 100 mg capsule 300 mg PO BID constipation 30 days 12/27/21 03/27/23 Rx #180 caps aspirin 325 mg tablet 325 mg PO DAILY prevention 08/13/22 03/27/23 History clonidine HCl 0.2 mg tablet 0.2 mg PO BID Anxiety 30 days #60 03/26/23 03/27/23 Rx tabs hydrochlorothiazide 25 mg tablet 25 mg PO DAILY 30 days #30 tabs 03/26/23 03/27/23 Rx metoprolol succinate 200 mg 200 mg PO DAILY htn 30 days #30 03/26/23 03/27/23 Rx tablet,extended release 24 hr tabs pantoprazole 40 mg tablet,delayed 40 mg PO BID Reflux/Acid reflux 30 03/26/23 03/27/23 Rx release days #60 tabs rosuvastatin 40 mg tablet 40 mg PO DAILY Cholesterol 30 days 03/26/23 03/27/23 Rx #30 tabs semaglutide 7 mg tablet (Rybelsus) 7 mg PO DAILY #30 tabs 03/26/23 03/27/23 Rx sitagliptin phosphate 50 1 tab PO BID daibetes 30 days #60 03/26/23 03/27/23 Rx mg-metformin 1,000 mg tablet tabs (Janumet) albuterol sulfate 90 mcg/actuation 2 puff inhalation Q4HP PRN 03/27/23 03/27/23 History aerosol inhaler Shortness Of Breath aml
--- NOTE | 2023-03-27 18:14 | PC.NURSE ---
Since arriving to floor patient has had no complaints. Pt has ambulated around the room and down the [place]. Pt lung sounds clear. Bowel sounds active. Pt is alert and oriented x4. Pt did have a shower independently. Call light in reach and working.
[2023-03-27 20:00] VITALS: BP 147/74; PULSE 82; RESP 17; TEMP 36.5; O2SAT 93
[2023-03-27 21:09] LABS: POC Glucose,Bedside 248 (70-110)
--- NOTE | 2023-03-28 03:42 | PC.NURSE ---
Pt is A/Ox4. Pt has rested well this shift. Pt glucose was 248 at HS and required insulin coverage. Pt denies pain and other needs and has no complaints.
[2023-03-28 04:00] VITALS: BP 129/73; PULSE 60; RESP 16; TEMP 36.6; O2SAT 94; BMI 29.8
[2023-03-28 05:13] LABS: POC Glucose,Bedside 147 (70-110)
[2023-03-28 06:08] LABS: Chloride 103 mmol/L (98-107); Potassium 4.5 mmoL/L (3.5-5.1); Sodium 137 mmol/L (136-145)
[2023-03-28 06:09] LABS: Basophils % 0.2 % (0.1-2.0); Eosinophils # 0.2 K/mm3 (0.0-0.4); Eosinophils % 1.5 % (0.1-12.0); Hematocrit 45.6 % (42.0-52.0); Hemoglobin 15.1 g/dL (14.1-18.0); Lymphocytes # 1.6 K/mm3 (0.7-4.5); Lymphocytes % 12.7 % (10-50); Mean Corpuscular Hemoglobin 33.8 pg (27.0-31.2); Mean Corpuscular Volume 102.3 fl (80-94); Mean Platelet Volume 9.4 fl (7.4-10.4); Monocytes % 7.8 % (1.7-9.3); Neutrophils # 9.7 K/mm3 (1.8-7.8); Neutrophils % 77.7 % (37.0-80.0); Platelet Count 150 K/mm3 (142-424); Red Blood Count 4.46 M/mm3 (4.60-6.20); Red Cell Distribution Width 13.4 % (11.5-17.5); White Blood Count 12.4 K/mm3 (4.8-10.8)
[2023-03-28 06:11] LABS: Anion Gap 15.5 mEq/L (5-15); Blood Urea Nitrogen 30 mg/dl (9-20); Carbon Dioxide 23 mmol/L (22.0-30.0); Creatinine Clearance Estimated 65 mL/min (50-200); Estimated Glomerular Filt Rate 50 ml/min (>60); GFR (African American) 60 ML/MIN (>60)
[2023-03-28 06:12] LABS: Calcium 8.9 mg/dl (8.4-10.2); Glucose 161 mg/dl (74-100)
[2023-03-28 08:00] VITALS: BP 127/78; PULSE 65; RESP 18; TEMP 36.6; O2SAT 96
--- NOTE | 2023-03-28 10:59 | EXP.DC.SUM ---
General Admission date:: 03/27/23 Discharge date: 03/28/23 HPI HPI HPI: Patient is a 73-year-old male with past medical history of CKD, tobacco use who presented to hospital for abnormal blood work. According to patient he was informed his potassium was significantly abnormal and he needs to come to the emergency department. Patient denies any chest pain shortness of breath nausea vomiting diarrhea constipation dysuria fevers and chills. Patient had a blood work performed at his GI office for workup of his cirrhosis. Hospital Course Hospital Course Hospital Course: Patient was seen and evaluated at the bedside on the day of discharge. Patient is stable for discharge. Patient wishes to be discharged. All patient questions were answered and patient was given time to ask questions. Patient was discharged in stable condition. Patient understands that she can return to ER in case of any sudden changes in health. Total time spent on DC - 38 mins Patient is a 73-year-old male with past medical history of CKD, tobacco use who presented to hospital for abnormal blood work. According to patient he was informed his potassium was significantly abnormal and he needs to come to the emergency department. Patient denies any chest pain shortness of breath nausea vomiting diarrhea constipation dysuria fevers and chills. Patient had a blood work performed at his GI office for workup of his cirrhosis. Assessment MARY on CKD - improved Hyperkalemia - resolved Diabetes mellitus COPD Hypertension Exam Data for Last 24 hours Vital signs and Labs for Last 24 Hours: Temp Pulse Resp BP Pulse Ox O2 Del Method 97.8 F 65 18 127/78 96 Room Air 03/28/23 08:00 03/28/23 08:00 03/28/23 08:00 03/28/23 08:00 03/28/23 08:00 03/28/23 08:00 Laboratory Results - last 24 hr 03/27/23 15:37: Sodium 139, Potassium 4.4 D, Chloride 104, Carbon Dioxide 21 L, Anion Gap 18.4 H, BUN 35 H, Creatinine 1.70 H, Estimated Creat Clear 53, Estimated GFR 40 L, Est GFR ( Amer) 48 L, Glucose 89, Calcium 9.2 03/27/23 21:01: POC Glucose 248 H 03/28/23 05:05: POC Glucose 147 H 03/28/23 05:53: WBC 12.4 H D, RBC 4.46 L, Hgb 15.1, Hct 45.6, MCV 102.3 H, MCH 33.8 H, MCHC 33.0, RDW 13.4, Plt Count 150, MPV 9.4, Neut % (Auto) 77.7, Lymph % (Auto) 12.7, Mcpherson % (Auto) 7.8, Eos % (Auto) 1.5, Baso % (Auto) 0.2, Neut # (Auto) 9.7 H, Lymph # (Auto) 1.6, Mcpherson # (Auto) 1.0, Eos # (Auto) 0.2, Baso # (Auto) 0.0, Sodium 137, Potassium 4.5, Chloride 103, Carbon Dioxide 23, Anion Gap 15.5 H, BUN 30 H, Creatinine 1.40 H, Estimated Creat Clear 65, Estimated GFR 50 L, Est GFR ( Amer) 60 D, Glucose 161 H D, Calcium 8.9 I & O for Last 24 hours: Intake & Output 03/25/23 03/26/23 03/27/23 03/28/23 23:59 23:59 23:59 23:59 Intake Total 780 / 780 480 / 480 Output Total 0 / 0 Balance 780 / 780 480 / 480 Weight 98.458 kg 99.86 kg Constitutional Constitutional: no acute distress *Routine HEENT Exam Head: Present normocephalic Eye: Present EOMI and PERRL ENT: Present mucous membranes moist *Routine Neck Exam Neck: Present supple; Absent lymphadenopathy *Routine Respiratory Exam Respiratory: Present CTA bilaterally *Routine Cardiovascular Exam Cardiovascular: Present RRR *Routine Abdominal Exam Abdominal: Present soft and normoactive bowel sounds; Absent tenderness *Routine Extremities Exam Extremities: Absent cyanosis, clubbing or edema *Routine Skin Exam Skin: Present warm; Absent rash *Routine Neurological Exam Neurological: Present alert and oriented X3 Results Data Completed and Pending Labs on day of discharge: Labs from last 24 hours 03/28/23 03/28/23 03/27/23 05:53 05:05 21:01 WBC 12.4 H D RBC 4.46 L Hgb 15.1 Hct 45.6 MCV 102.3 H MCH 33.8 H MCHC 33.0 RDW 13.4 Plt Count 150 MPV 9.4 Neut % (Auto) 77.7 Lymph % (Auto) 12.7 Mcpherson % (Auto) 7.8 Eos % (Auto) 1.5 Baso % (Auto) 0.2 Neut #
[2023-03-28 11:17] LABS: POC Glucose,Bedside 186 (70-110)
--- NOTE | 2023-04-01 13:48 | SW/DCPLANNER ---
Follow up phone call w/ this patient: patient stated that he is doing well at home and does not have any needs/questions at this time.
== END 2023-03-28 11:35 | disposition home or self-care (01) ==
LOC: ER 12:38 → 2ND 12:52
PROVIDERS: Admitting Provider Internal Medicine; Emergency Provider Student in an Organized Health Care Education/Training Program; PCP Family Medicine; Visit Provider Internal Medicine
DX: E87.5 Hyperkalemia (principal); N17.9 Acute kidney failure, unspecified; N18.9 Chronic kidney disease, unspecified; E11.22 Type 2 diabetes mellitus with diabetic chronic kidney disease; F17.210 Nicotine dependence, cigarettes, uncomplicated; Z79.899 Other long term (current) drug therapy; Z79.84 Long term (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 oral hypoglycemic drugs; J44.9 Chronic obstructive pulmonary disease, unspecified; I13.0 Hypertensive heart and chronic kidney disease with heart failure and stage 1 through stage 4 chronic kidney disease, or unspecified chronic kidney disease; K74.60 Unspecified cirrhosis of liver
CPT/HCPCS: 36415; 80048; 80053; 82105; 82962; 85025; 85610; 93005; 97161; 97165; 99285; G0378

== ENCOUNTER 2023-06-03 20:18 | Outpatient (CLI) | payer MEDICARE, BC, SELFPAY ==
[2023-06-03 16:51] LABS: Alanine Aminotransferase 32 U/L (12-78); Albumin Level 4.5 g/dl (3.5-5.0); Albumin/Globulin Ratio 1.7 (1.1-1.8); Alkaline Phosphatase 91 U/L (38-126); Aspartate Amino Transferase 37 U/L (17-59); Basophils % 0.3 % (0.1-2.0); Bilirubin,Total 0.9 mg/dl (0.2-1.3); Blood Urea Nitrogen 19 mg/dl (9-20); Calcium 9.6 mg/dl (8.4-10.2); Carbon Dioxide 31 mmol/L (22.0-30.0); Chloride 105 mmol/L (98-107); Eosinophils # 0.3 K/mm3 (0.0-0.4); Eosinophils % 2.6 % (0.1-12.0); Estimated Glomerular Filt Rate 54 ml/min (>60); GFR (African American) 65 ML/MIN (>60); Globulin 2.6 g/dL (1.3-3.2); Glucose 142 mg/dl (74-100); Hematocrit 48.5 % (42.0-52.0); Hemoglobin 15.4 g/dL (14.1-18.0); Lymphocytes # 3.1 K/mm3 (0.7-4.5); Lymphocytes % 25.7 % (10-50); Mean Corpuscular HGB Conc 31.8 g/dL (31.8-35.4); Mean Corpuscular Hemoglobin 35.2 pg (27.0-31.2); Mean Corpuscular Volume 110.8 fl (80-94); Mean Platelet Volume 10.8 fl (7.4-10.4); Monocytes # 0.8 K/mm3 (0.1-1.0); Monocytes % 6.9 % (1.7-9.3); Neutrophils # 7.8 K/mm3 (1.8-7.8); Neutrophils % 64.6 % (37.0-80.0); Platelet Count 212 K/mm3 (142-424); Red Blood Count 4.37 M/mm3 (4.60-6.20); Red Cell Distribution Width 13.5 % (11.5-17.5); Sodium 139 mmol/L (136-145); Total Protein,Serum 7.1 g/dl (6.3-8.2)
[2023-06-03 22:15] LABS: Hemoglobin A1C 6.1 % (4.0-6.0)
== END 2023-06-03 23:59 ==
PROVIDERS: PCP Nurse Practitioner Family; Visit Provider Nurse Practitioner Family
DX: I10 Essential (primary) hypertension (principal); E11.9 Type 2 diabetes mellitus without complications; Z79.84 Long term (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 oral hypoglycemic drugs; Z79.899 Other long term (current) drug therapy
CPT/HCPCS: 80053; 83036; 84443; 85025

== ENCOUNTER 2023-09-08 10:29 | Outpatient (CLI) | payer MEDICARE, BC, SELFPAY ==
[2023-09-08 17:22] LABS: Hemoglobin A1C 7.1 % (4.0-6.0)
== END 2023-09-08 23:59 | disposition home or self-care (01) ==
LOC: LAB.DROPOF 09-10 10:29
PROVIDERS: PCP Family Medicine; Visit Provider Family Medicine
DX: E11.9 Type 2 diabetes mellitus without complications (principal); Z79.84 Long term (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 oral hypoglycemic drugs
CPT/HCPCS: 83036

== ENCOUNTER 2023-10-23 11:51 | Outpatient (CLI) | payer MEDICARE, BC, SELFPAY ==
[2023-10-23 12:45] LABS: Alanine Aminotransferase 29 U/L (12-78); Albumin Level 4.5 g/dl (3.5-5.0); Albumin/Globulin Ratio 1.6 (1.1-1.8); Alkaline Phosphatase 67 U/L (38-126); Aspartate Amino Transferase 39 U/L (17-59); Blood Urea Nitrogen 26 mg/dl (9-20); Carbon Dioxide 29 mmol/L (22.0-30.0); Chloride 106 mmol/L (98-107); Estimated Glomerular Filt Rate 42 ml/min (>60); GFR (African American) 51 ML/MIN (>60); Globulin 2.8 g/dL (1.3-3.2); Glucose 94 mg/dl (74-100); Sodium 142 mmol/L (136-145); Total Protein,Serum 7.3 g/dl (6.3-8.2)
[2023-10-23 13:24] LABS: INR 0.91 (0.9-1.1); Prothrombin Time 10.3 seconds (10.1-12.5)
[2023-10-24 08:49] LABS: HBsAg Screen Negative (Negative); HCV Ab Non Reactive (Non Reactive); Hep A Ab, IGM Negative (Negative); Hep B Core Ab, IgM Negative (Negative)
[2023-10-24 12:53] LABS: AFP, Tumor Marker 3.3 ng/mL (0.0-8.4)
== END 2023-10-23 23:59 | disposition home or self-care (01) ==
LOC: LAB 11:52
PROVIDERS: PCP Family Medicine; Visit Provider Nurse Practitioner
DX: K74.60 Unspecified cirrhosis of liver (principal)
CPT/HCPCS: 36415; 80053; 80074; 82105; 85610

== ENCOUNTER 2023-11-17 18:38 | Inpatient (IN) | payer MEDICARE, BC, SELFPAY ==
[2023-11-17] VITALS (21 sets, daily range): BP systolic 97–133; BP diastolic 61–88; PULSE 122–131; RESP 13–22; TEMP 36.7; O2SAT 89–98; BMI 29.1; BMI 29.9
--- NOTE | 2023-11-17 18:34 | ECG_ITS ---
APPROVED REPORT Exam: Resting ECG HR:129 bpm ECG Measurements Heart Rate 129 AXES WA 140 P 210 QRSd 156 QRS 133 QT 305 T 28 QTc 381 Conclusion SINUS TACHYCARDIA WITH OCCASIONAL VENTRICULAR PREMATURE COMPLEXES RIGHT BUNDLE BRANCH BLOCK [120+ ms QRS DURATION, UPRIGHT V1, 40+ ms S IN I/aVL/V4/V5/V6] LEFT POSTERIOR FASCICULAR BLOCK [QRS AXIS > 109, INFERIOR Q] ABNORMAL ECG Electronically signed by : MYRNA GOLDEN, 11/18/2023 00:31:24
--- NOTE | 2023-11-17 18:44 | CT_ITS ---
PROCEDURE INFORMATION: Exam: CTA Chest With Contrast Exam date and time: 11/17/2023 7:36 PM Age: 73 years old Clinical indication: Shortness of breath; Additional info: Tachy, chest pain/soa TECHNIQUE: Imaging protocol: Computed tomographic angiography of the chest with contrast. Exam focused on the arteries. 3D rendering (Not supervised by radiologist): MIP and/or 3D reconstructed images were created by the technologist. Radiation optimization: All CT scans at this facility use at least one of these dose optimization techniques: automated exposure control; mA and/or kV adjustment per patient size (includes targeted exams where dose is matched to clinical indication); or iterative reconstruction. Contrast material: ISOVUE 370; Contrast volume: 80 ml; Contrast route: INTRAVENOUS (IV); COMPARISON: LUNGSCREEN CT lung screening 09/02/2018 8:32 AM FINDINGS: Pulmonary arteries: No CT evidence for pulmonary embolism. Great vessels off aortic arch: The mediastinal structures including the esophagus, trachea, great vessels, and heart show no evidence of injury or acute pathologic processes. Aorta: Unremarkable. No aortic aneurysm. No aortic dissection. Lungs: Moderate Coarsened peripheral interstitial markings greatest within the lung bases consistent with UIP pattern pulmonary fibrosis, progressed when compared with the previous CT scan. Pleural spaces: Unremarkable. No pneumothorax. No pleural effusion. Heart: See Great vessels off aortic arch finding. Coronary arteries: Three-vessel coronary artery calcifications. Lymph nodes: Unremarkable. No enlarged lymph nodes. Bones/joints: Old left posterior 9th rib fracture. Soft tissues: Unremarkable. IMPRESSION: 1. No CT evidence for pulmonary embolism. 2. Moderate Coarsened peripheral interstitial markings greatest within the lung bases consistent with UIP pattern pulmonary fibrosis, progressed when compared with the previous CT scan.
--- NOTE | 2023-11-17 18:44 | CT_ITS ---
PROCEDURE INFORMATION: Exam: CT Abdomen And Pelvis With Contrast Exam date and time: 11/17/2023 7:36 PM Age: 73 years old Clinical indication: Abdominal pain; Localized; Left lower quadrant (llq); Additional info: Llq tenderness TECHNIQUE: Imaging protocol: Computed tomography of the abdomen and pelvis with contrast. 3D rendering (Not supervised by radiologist): MIP and/or 3D reconstructed images were created by the technologist. Radiation optimization: All CT scans at this facility use at least one of these dose optimization techniques: automated exposure control; mA and/or kV adjustment per patient size (includes targeted exams where dose is matched to clinical indication); or iterative reconstruction. Contrast material: ISOVUE; Contrast volume: 80 ml; Contrast route: IV; COMPARISON: CT ANGIO CHEST PE PROTOCOL 11/17/2023 7:36 PM FINDINGS: Lungs: The visualized lung bases demonstrate no focal infiltrates or pleural effusions. Liver: Moderate cirrhosis. Gallbladder and biliary ducts: Normal. No calcified stones. No ductal dilation. Pancreas: The pancreas is normal. Spleen: The spleen is normal. Adrenal glands: The adrenal glands appear within normal limits. Kidneys and ureters: Normal. No hydronephrosis. Stomach and bowel: Unremarkable. No obstruction. No mucosal thickening. Appendix: No evidence of appendicitis. Intraperitoneal space: Unremarkable. No free air. No significant fluid collection. Vasculature: Unremarkable. No abdominal aortic aneurysm. Lymph nodes: Unremarkable. No enlarged lymph nodes. Urinary bladder: Mild distension of the bladder lumen without bladder wall thickening. Reproductive: Unremarkable as visualized. Bones/joints: Unremarkable. No acute fracture. Soft tissues: Unremarkable. IMPRESSION: 1. No acute abnormalities are identified. 2. Mild cirrhosis.
[2023-11-17] MEDS: LACTATED RINGERS 1000ML 1,000 ML 999 ML IV (18:58)
[2023-11-17 19:07] LABS: Basophils # 0.1 K/mm3 (0-0.2); Basophils % 0.8 % (0.1-2.0); Eosinophils # 0.3 K/mm3 (0.0-0.4); Eosinophils % 2.3 % (0.1-12.0); Hemoglobin 15.3 g/dL (14.1-18.0); Lymphocytes # 3.1 K/mm3 (0.7-4.5); Lymphocytes % 25.6 % (10-50); Mean Corpuscular HGB Conc 31.3 g/dL (31.8-35.4); Mean Corpuscular Hemoglobin 33.9 pg (27.0-31.2); Mean Corpuscular Volume 108.4 fl (80-94); Mean Platelet Volume 9.3 fl (7.4-10.4); Monocytes # 1.1 K/mm3 (0.1-1.0); Monocytes % 8.6 % (1.7-9.3); Neutrophils # 7.7 K/mm3 (1.8-7.8); Neutrophils % 62.8 % (37.0-80.0); Platelet Count 203 K/mm3 (142-424); Red Blood Count 4.52 M/mm3 (4.60-6.20); Red Cell Distribution Width 13.7 % (11.5-17.5); White Blood Count 12.3 K/mm3 (4.8-10.8)
[2023-11-17 19:12] LABS: Alanine Aminotransferase 26 U/L (12-78); Albumin Level 4.3 g/dl (3.5-5.0); Albumin/Globulin Ratio 1.5 (1.1-1.8); Alkaline Phosphatase 66 U/L (38-126); Anion Gap 12.4 mEq/L (5-15); Aspartate Amino Transferase 34 U/L (17-59); Bilirubin,Total 0.9 mg/dl (0.2-1.3); Blood Urea Nitrogen 30 mg/dl (9-20); Calcium 9.5 mg/dl (8.4-10.2); Carbon Dioxide 24 mmol/L (22.0-30.0); Chloride 108 mmol/L (98-107); Creatinine Clearance Estimated 50 mL/min (50-200); Estimated Glomerular Filt Rate 37 ml/min (>60); GFR (African American) 45 ML/MIN (>60); Globulin 2.9 g/dL (1.3-3.2); Glucose 129 mg/dl (74-100); Lipase 402 U/L (23-300); Magnesium 2.1 mg/dl (1.6-2.3); Potassium 4.4 mmoL/L (3.5-5.1); Sodium 140 mmol/L (136-145); Total Protein,Serum 7.2 g/dl (6.3-8.2)
[2023-11-17 19:18] LABS: Activated Partial Thrombo Time 26.3 seconds (22.8-30.6); Prothrombin Time 10.2 seconds (10.1-12.5)
--- NOTE | 2023-11-17 19:21 | PC.NURSE ---
rounded on pt at this time. pt voices no needs. at bedside. call light within reach.
[2023-11-17 19:22] LABS: NT Pro Brain Natriuretic Pep. 396 pg/mL (0-125)
[2023-11-17 19:24] LABS: Troponin I 0.03 ng/ml (0.00-0.034)
--- NOTE | 2023-11-17 19:28 | PC.NURSE ---
Pt going to CT at this time
[2023-11-17 19:29] LABS: T4 (Thyroxine) 7.9 ug/dl (5.53-11.0)
[2023-11-17] MEDS: SODIUM CHLORIDE 0.9% 10ML SYR (RAD ONLY) 10 ML IV (19:35)
[2023-11-17] MEDS: 0.9 % SODIUM CHLORIDE 50 ML VIAL IV (19:35)
[2023-11-17] MEDS: IOPAMIDOL-370 (76%);100ML BOTTLE 80 ML IV (19:36)
--- NOTE | 2023-11-17 19:37 | ED_ITS ---
Discharge Plan Disposition Patient Disposition: Admitted Clinical Impressions Clinical Impression: New onset atrial flutter, Chest pain, Cirrhosis, Pulmonary fibrosis Discharge ED Provider: Meredith Dale HPI General Chief Complaint: Chest Pain Stated Complaint: chest pain Time Seen by Provider: 11/17/23 18:39 Mode of Arrival: EMS Source of Information: Patient Limitations: No Limitations Description of Symptoms (Recalled from ER Triage Doc. by RN): pt presents to ED with c/o chest pain. pt reports pain began around 5078-8811 this afternoon. pt reports pressure in center of chest. pt was given 1 nitro and 324 asa in route. pt reports relief from pain with nitro. History of Present Illness HPI narrative: This patient is a 73-year-old male with a history of hypertension, hyperlipidemia, type 2 diabetes, GERD, prostate cancer presenting to the emergency department for evaluation with concern for chest pain. Patient reports that around 1 to 2 PM, he started spearing seeing pressure in the center of his chest. He denies experiencing any like this in the past. He received aspirin and nitroglycerin with EMS, which did help relieve his pain. He denies any other associated symptoms, such as recent fevers, chills, cough, congestion, abdominal pain, nausea, vomiting, changes in bowel movements, or other concerns. He reports compliance with his home medications. He arrives by EMS who noted that he was tachycardic en route and initially had several PVCs, but they state that he did not have any after administration of the aspirin and nitroglycerin. Related Data Home Medications ?Medication ?Instructions ?Recorded ?Confirmed multivitamin 1 cap PO QAM Supplement 09/30/17 11/17/23 aspirin 325 mg tablet 325 mg PO DAILY prevention 08/13/22 11/17/23 albuterol sulfate 90 mcg/actuation 2 puff inhalation Q4HP PRN 03/27/23 11/17/23 aerosol inhaler Shortness Of Breath ascorbic acid (vitamin C) 1,000 mg 1,000 mg PO BID supplement 03/27/23 11/17/23 capsule amlodipine 5 mg tablet 5 mg PO DAILY 11/17/23 11/17/23 Previous Rx's ?Medication ?Instructions ?Recorded benazepril 40 mg tablet (Lotensin) 40 mg PO DAILY High Blood Pressure 09/19/23 30 days #30 tabs clonidine HCl 0.2 mg tablet 0.2 mg PO BID Anxiety 30 days #60 09/19/23 tabs glipizide 10 mg tablet 10 mg PO BID Diabetes 30 days #60 09/19/23 tabs hydrochlorothiazide 25 mg tablet 25 mg PO DAILY 30 days #30 tabs 09/19/23 metoprolol succinate 200 mg 200 mg PO DAILY htn 30 days #30 09/19/23 tablet,extended release 24 hr tabs pantoprazole 40 mg tablet,delayed 40 mg PO BID Reflux/Acid reflux 30 09/19/23 release days #60 tabs rosuvastatin 40 mg tablet 40 mg PO DAILY Cholesterol 30 days 09/19/23 #30 tabs semaglutide 7 mg tablet (Rybelsus) 7 mg PO DAILY #30 tabs 09/19/23 sitagliptin phosphate 50 1 tab PO BID daibetes 30 days #60 09/19/23 mg-metformin 1,000 mg tablet tabs (Janumet) Allergies Allergy/AdvReac Type Severity Reaction Status Date / Time No Known Allergies Allergy Verified 10/27/23 11:03 [facility] Disclaimer: The information contained in this section may have been updated after the patient was seen, as this information can be updated by other users. Medical History Diabetes 1.5, managed as type 2 MARY (acute kidney injury) CKD (chronic kidney disease) Acute hyperkalemia Fatty infiltration of liver Elbow pain History of rectal fissure Cirrhosis of liver Abdominal pain Hepatic cirrhosis Abdominal pain Pneumonia ETD (eustachian tube dysfunction) Hypertrophy of both inferior nasal turbinates Unilateral hearing loss Nasal septal deviation Rib pain Skin infection Cough Smoking Tobacco abuse counseling Sinusitis Anal fissure History of hemorrhoids Renal insufficiency Prostate cancer GERD (gastroesophageal reflux disease) Torn Achilles tendon COPD (chronic obstructive pulmonary disease) Bronchitis Hyperlipidemia associated with type 2 diabetes mellitus Diabetes type 2, controlled Hypertension associated with diabetes Surgical History History of prostate surgery Hx of hemorrhoidectomy History of hand surgery History of hernia repair History of colonoscopy History of tonsillectomy Family History Father Cancer Heart attack Stroke Mother Heart attack Stroke Social History (Updated 11/17/23 @ 22:09 by Maria C Worley RN) Smoking Status: Current every day smoker tobacco type: cigarettes packs per day: 1 alcohol intake: never substance use type: denies use current occupational status: retired Travel in the last 8 weeks: None household members: spouse housing: house marital status: education level: vocational service: No caffeine: Yes special roxanne needs: No do you feel safe at home: Yes victim of physical abuse: No victim of emotional abuse: No victim of sexual abuse: No would you like helpful sources: No ROS Obtained: Yes All systems reviewed & no additional complaints except as documented Physical Exam General General appearance: alert and in no apparent distress Head Head exam: atraumatic and normocephalic Eye Eye exam: Present normal appearance, PERRL and EOMI ENT ENT exam: Present normal exam, normal oropharynx, mucous membranes moist and normal external ear exam Neck Neck exam: Present normal inspection, full ROM and trachea midline; Absent tenderness Chest Chest inspection: Present normal inspection and symmetric chest wall rise; Absent tenderness Respiratory Respiratory exam: Present normal lung sounds bilaterally; Absent respiratory distress, wheezes, stridor or accessory muscle use Cardiovascular Cardiovascular exam: Present normal rhythm and tachycardia Abdominal Exam Abdominal exam: Present soft; Absent distention, tenderness or guarding Extremities Exam Extremities exam: Present normal inspection, full ROM and normal capillary refill; Absent tenderness or edema Back Exam Back exam: Present normal inspection and full ROM; Absent tenderness Neurological Exam Neurological exam: Present alert, oriented X3, CN II-XII intact and normal gait; Absent motor sensory deficit Psychiatric Psychiatric exam: Present normal affect and normal mood Skin Skin exam: Present warm and dry HEART Score HEART Score HEART Score assessment performed?: Yes History (anamnesis): Moderately suspicious ECG: Non-specific disturbance Age: >65 years Risk factors: 3 or more risk factors Troponin: </= normal limit HEART Score: 6 Critical Care Critical Care Time Critical Care Time: Yes Attestation: On 11/17/23, the high probability of a clinically significant, sudden or life threatening deterioration of the following system(s) required my full and direct attention, intervention and personal management. The time I documented below is in addition to time spent performing reported procedures but includes the following listed in this critical care notation. Total Time Total Critical Care Time: 48 Medical Decision Making Medical Records Medical records reviewed: Yes I reviewed the patient's medical records. Jose Inquiry Pt receiving controlled substance: No Vital Signs Vital Signs: 11/17/23 18:38 11/17/23 18:45 11/17/23 19:01 Temperature 98.0 F Temperature Source Oral Pulse Rate 130 H 131 H Pulse Rate [Left Radial] 130 H Respiratory Rate 19 18 Blood Pressure 97/61 L Blood Pressure [Right Arm] 114/88 Blood Pressure Mean 73 Blood Pressure Mean [Right Arm] 96 Blood Pressure Source Blood Pressure Position 02 Sat by Pulse Oximetry 98 96 Oxygen Delivery Method Room Air Room Air Oxygen Flow Rate (LPM) 11/17/23 19:49 11/17/23 20:00 11/17/23 20:04 Temperature Temperature Source Pulse Rate 127 H 129 H 126 H Pulse Rate [Left Radial] Respiratory Rate 15 15 14 Blood Pressure 121/78 114/79 100/78 L Blood Pressure [Right Arm] Blood Pressure Mean Blood Pressure Mean [Right Arm] Blood Pressure Source Blood Pressure Position 02 Sat by Pulse Oximetry 95 95 95 Oxygen Delivery Method Oxygen Flow Rate (LPM) 11/17/23 20:07 11/17/23 20:09 11/17/23 20:10 Temperature Temperature Source Pulse Rate 129 H 127 H 129 H Pulse Rate [Left Radial] Respiratory Rate 18 19 16 Blood Pressure 126/82 124/79 118/74 Blood Pressure [Right Arm] Blood Pressure Mean Blood Pressure Mean [Right Arm] Blood Pressure Source Blood Pressure Position 02 Sat by Pulse Oximetry 95 94 L 95 Oxygen Delivery Method Oxygen Flow Rate (LPM) 11/17/23 20:20 11/17/23 20:31 11/17/23 20:40 Temperature Temperature Source Pulse Rate 131 H 127 H Pulse Rate [Left Radial] Respiratory Rate 20 17 13 Blood Pressure 112/74 133/73 128/83 Blood Pressure [Right Arm] Blood Pressure Mean Blood Pressure Mean [Right Arm] Blood Pressure Source Blood Pressure Position 02 Sat by Pulse Oximetry 94 L 97 Oxygen Delivery Method Oxygen Flow Rate (LPM) 11/17/23 20:50 11/17/23 21:00 11/17/23 21:01 Temperature Temperature Source Pulse Rate 125 H 124 H 125 H Pulse Rate [Left Radial] Respiratory Rate 16 15 15 Blood Pressure 121/81 110/79 123/75 Blood Pressure [Right Arm] Blood Pressure Mean Blood Pressure Mean [Right Arm] Blood Pressure Source Blood Pressure Position 02 Sat by Pulse Oximetry 94 L 92 L 97 Oxygen Delivery Method Oxygen Flow Rate (LPM) 11/17/23 21:10 11/17/23 21:20 11/17/23 21:30 Temperature Temperature Source Pulse Rate 126 H 127 H 128 H Pulse Rate [Left Radial] Respiratory Rate 18 20 22 Blood Pressure 126/79 123/75 116/74 Blood Pressure [Right Arm] Blood Pressure Mean Blood Pressure Mean [Right Arm] Blood Pressure Source Blood Pressure Position 02 Sat by Pulse Oximetry 90 L 89 L 94 L Oxygen Delivery Method Nasal Cannula Oxygen Flow Rate (LPM) 2 11/17/23 21:37 Temperature 98.0 F Temperature Source Oral Pulse Rate 128 H Pulse Rate [Left Radial] Respiratory Rate 19 Blood Pressure 116/74 Blood Pressure [Right Arm] Blood Pressure Mean Blood Pressure Mean [Right Arm] Blood Pressure Source Automatic Cuff Blood Pressure Position Sitting 02 Sat by Pulse Oximetry Oxygen Delivery Method Nasal Cannula Oxygen Flow Rate (LPM) 2 Lab Data Labs: Lab Results 11/17/23 18:35: Hemoglobin A1c 5.6 11/17/23 18:37: WBC 12.3 H, RBC 4.52 L, Hgb 15.3, Hct 49.0, MCV 108.4 H, MCH 33.9 H, MCHC 31.3 L, RDW 13.7, Plt Count 203, MPV 9.3, Neut % (Auto) 62.8, Lymph % (Auto) 25.6, Thomas % (Auto) 8.6, Eos % (Auto) 2.3, Baso % (Auto) 0.8, Neut # (Auto) 7.7, Lymph # (Auto) 3.1, Thomas # (Auto) 1.1 H, Eos # (Auto) 0.3, Baso # (Auto) 0.1, PT 10.2, INR 0.90, APTT 26.3, Sodium 140, Potassium 4.4, Chloride 108 H, Carbon Dioxide 24, Anion Gap 12.4, BUN 30 H, Creatinine 1.80 H, Estimated Creat Clear 50, Estimated GFR 37 L, Est GFR ( Amer) 45 L, Glucose 129 H, Calcium 9.5, Magnesium 2.1, Total Bilirubin 0.9, AST 34, ALT 26, Alkaline Phosphatase 66, Troponin I 0.03, NT-Pro-B Natriuret Pep 396 H, Total Protein 7.2, Albumin 4.3, Globulin 2.9, Albumin/Globulin Ratio 1.5, Lipase 402 H, TSH 2.29, Thyroxine (T4) 7.9 11/17/23 18:37 11/17/23 18:37 Response Orders (Tests/Meds): ED MEDICATIONS Generic Name Dose Route Start Last Admin Trade Name Freq PRN Reason Stop Dose Admin Acetaminophen 650 mg 11/17/23 21:11 Acetaminophen 325mg Tab PO 12/17/23 21:10 Q4HP PRN Fever or Mild Pain (1-3) Diltiazem HCl 100 mg/ Sodium 100 mls @ 5 mls/hr 11/17/23 20:35 11/17/23 21:22 Chloride IV 12/17/23 20:34 15 mg/hr .Q20H ALINE 15 mls/hr Titration Protocol 5 MG/HR Sodium Chloride 1,000 mls @ 75 mls/hr 11/17/23 21:15 Sod Chlor 0.9% 1000ml Bag IV 12/17/23 21:14 .[id number] ALINE Insulin Human Lispro 0 unit 11/18/23 06:00 Humalog 100 Units/Ml 10ml Vial (Ssi) SQ 12/18/23 05:59 ACHS ALINE Protocol Morphine Sulfate 2 mg 11/17/23 21:11 Morphine 2mg/Ml Syringe IV 12/17/23 21:10 Q2HP PRN Severe Pain (7-10) Nicotine 21 mg 11/17/23 21:11 Nicotine 21mg/24hr Patch TD 12/17/23 21:10 DAILYP PRN Nicotine Cravings Nitroglycerin 0.4 mg 11/17/23 21:13 Nitroglycerin 0.4mg Sl Tablet SL 12/17/23 21:12 Q5MINP PRN Chest Pain Ondansetron HCl 4 mg 11/17/23 21:11 Ondansetron 4mg/2ml Vial IV 12/17/23 21:10 Q8HP PRN Nausea Pantoprazole Sodium 40 mg 11/18/23 09:00 Pantoprazole 40mg Tablet PO 12/18/23 08:59 DAILY ALINE Discontinued Medications Generic Name Dose Route Start Last Admin Trade Name Freq PRN Reason Stop Dose Admin Diltiazem HCl 10 mg 11/17/23 19:25 11/17/23 19:59 Diltiazem 25mg/5ml Vial IV 11/17/23 19:26 10 mg ONCE ONE Administration Enoxaparin Sodium 40 mg 11/17/23 21:13 11/17/23 21:18 Enoxaparin 40mg/0.4ml Syringe SQ 11/17/23 21:14 40 mg ONCE ONE Administration Lactated Ringer's 1,000 mls @ 999 mls/hr 11/17/23 18:44 11/17/23 18:58 Lactated Ringer's 1000 Ml Bag IV 11/17/23 19:44 999 mls/hr .Q1H1M ONE Administration Iopamidol 80 ml 11/17/23 19:35 11/17/23 19:36 Iopamidol-370 (76%);100ml Bottle IV 11/17/23 19:36 80 ml ONCE ONE Administration Ondansetron HCl 4 mg 11/17/23 20:35 11/17/23 20:30 Ondansetron 4mg/2ml Vial IV 11/17/23 20:36 4 mg ONCE ONE Administration Sodium Chloride 10 ml 11/17/23 19:35 11/17/23 19:35 Sodium Chloride 0.9% 10ml Syr (Rad Only) IV 11/17/23 19:36 10 ml ONCE ONE Administration Sodium Chloride 50 ml 11/17/23 19:35 11/17/23 19:35 0.9 % Sodium Chloride 50 Ml Vial IV 11/17/23 19:36 50 ml ONCE ONE Administration ORDERS Category Date Time Status CT abdomen pelvis w con Stat Cat Scan 11/17/23 18:44 Completed CTA Chest [CT angio chest PE protocol] Stat Cat Scan 11/17/23 18:44 Completed Cardiology Consult [Consult to Cardiology] [CONS] Cons 11/17/23 21:11 Active Routine BNP [NT Pro Brain Natriuretic Pep.] Stat Lab 11/17/23 18:37 Completed Complete Blood Count Auto Diff AMLAB Lab 11/18/23 06:00 Ordered Complete Blood Count Auto Diff Stat Lab 11/17/23 18:37 Completed Comprehensive Metabolic Panel AMLAB Lab 11/18/23 06:00 Ordered Comprehensive Metabolic Panel Stat Lab 11/17/23 18:37 Completed Hemoglobin A1C AMLAB Lab 11/18/23 06:00 Ordered Hemoglobin A1C Stat Lab 11/17/23 18:35 Completed Lipase Stat Lab 11/17/23 18:37 Completed Lipid Panel AMLAB Lab 08/13/24 06:00 Ordered MAG [Magnesium] Stat Lab 11/17/23 18:37 Completed PT INR [Prothrombin Time INR] Stat Lab 11/17/23 18:37 Completed PTT [Activated Partial Thrombo Time] Stat Lab 11/17/23 18:37 Completed T4 (Thyroxine) Stat Lab 11/17/23 18:37 Completed TSH [Thyroid Stimulating Hormone] Stat Lab 11/17/23 18:37 Completed Trop I [Troponin I] Stat Lab 11/17/23 18:37 Completed Troponin I Q3H Lab 11/17/23 22:10 Completed Troponin I Q3H Lab 11/18/23 01:00 Ordered ECG Data Tracing #1: Attestation: I reviewed this ECG and interpreted as documented below: ECG Narrative: Atrial flutter with a ventricular rate of 129 bpm. Occasional PVCs. Right bundle branch block. Left posterior fascicular block. No acute STEMI. ECG initial impression date: 11/17/23 ECG initial impression time: 18:35 Tracing #2: Attestation: I reviewed this ECG and interpreted as documented below: ECG Narrative: Atrial flutter with a ventricular to [address] changes concerning for ischemia. Left posterior fascicular block. Right bundle branch block noted ECG initial impression date: 11/17/23 ECG initial impression time: 20:34 MDM Narrative Medical Decision Narrative: In summary, this patient is a 73-year-old presenting to the Emergency Department for evaluation of chest pain. Differential diagnoses considered include but are not limited to ACS, dysrhythmia, GERD, PE, aortic pathology, pneumonia, musculoskeletal strain/sprain. Ruling out the most morbid conditions drove assessment. It should be noted patient's history includes hypertension, hyperlipidemia, diabetes, and prostate cancer which may or may not be at goal therapy. This complicates all aspects of care by increasing patient's risk for morbidity. On exam, the patient is lying in bed in no acute distress. Heart rate is in the 130s consistently which appears to be atrial flutter versus sinus tachycardia to me. High concern for atrial flutter at this time. He denies any history of atrial flutter or fibrillation in the past. workup included lab evaluation to evaluate for infectious, cardiac, or metabolic causes of the patient's symptoms as well as CTA chest, and CT abdomen/pelvis. EKG does not demonstrate any acute STEMI, patient does have tachycardia as above. He already received aspirin and nitroglycerin with EMS. Will initiate fluid resuscitation with a liter bolus. I independently interpreted CT scan prior to the radiologist read and noted no obvious large PE and no obvious aortic pathology. Please see their read for final interpretation. Labs were obtained that demonstrated equivocal initial troponin. Patient had very mild leukocytosis. BNP is very mildly elevated. Creatinine is around the patient's baseline. He also has a mildly elevated lipase. He does not complain of any abdominal pain. On reassessment, patient began vomiting. He was given IV Zofran with improvement in his symptoms. He remains tachycardic, with repeat EKG showing atrial flutter. He was given 10 mg of IV diltiazem push which did not help with rate control. He did remain hemodynamically stable after pushing this. He was started on a diltiazem drip for further management. He required continued monitoring for this with some improvement in his rate but remained tachycardic. Ultimately, I feel he would benefit from admission for new onset atrial flutter with RVR and high risk chest pain. I had an interactive discussion with the hospitalist who admitted the patient.
[2023-11-17 19:43] LABS: Thyroid Stimulating Hormone 2.29 uIU/mL (0.465-4.68)
[2023-11-17] MEDS: dilTIAZem 25MG/5ML VIAL 10 MG IV (19:59)
--- NOTE | 2023-11-17 20:08 | PC.NURSE ---
Diltizem 10mg IV given per MAR. Pt HR and BP after admin - 128, and 124/79
--- NOTE | 2023-11-17 20:28 | ECG_ITS ---
APPROVED REPORT Exam: Resting ECG HR:121 bpm ECG Measurements Heart Rate 121 AXES QRSd 127 QRS 139 QT 333 T 56 QTc 405 Conclusion ATRIAL FLUTTER/TACHYCARDIA WITH RAPID VENTRICULAR RESPONSE RIGHT BUNDLE BRANCH BLOCK [120+ ms QRS DURATION, UPRIGHT V1, 40+ ms S IN I/aVL/V4/V5/V6] LEFT POSTERIOR FASCICULAR BLOCK [QRS AXIS > 109, INFERIOR Q] ABNORMAL ECG Electronically signed by : MYRNA GOLDEN, 11/18/2023 00:30:56
[2023-11-17] MEDS: ONDANSETRON 4MG/2ML VIAL 4 MG IV (20:30)
[2023-11-17] MEDS: dilTIAZem HCL 100 MG in 0.9 % SODIUM CHLORIDE 100 ML IV (20:41)
--- NOTE | 2023-11-17 21:13 | PC.NURSE ---
Pt in need of stepdown bed. No stepdown room available at this time. Charge on Med Surg notified. She is looking at which rooms change be moved and will call back with a bed assignment.
--- NOTE | 2023-11-17 21:15 | EXP.HP ---
History of Present Illness *Admission Date: 11/17/23 *Reason for visit:: CP *History of present illness: This is a 73-year-old male with a PMHx of hypertension, hyperlipidemia, type 2 diabetes, GERD, prostate cancer presenting to the emergency department for evaluation with concern for chest pain. Patient reports that around 1 to 2 PM, he started spearing seeing pressure in the center of his chest. He denies experiencing any like this in the past. He received aspirin and nitroglycerin with EMS, which did help relieve his pain. He denies any other associated symptoms, such as recent fevers, chills, cough, congestion, abdominal pain, nausea, vomiting, changes in bowel movements, or other concerns. He reports compliance with his home medications. He arrives by EMS who noted that he was tachycardic en route and initially had several PVCs, but they state that he did not have any after administration of the aspirin and nitroglycerin. Admitted for further management. [facility] Disclaimer: The information contained in this section may have been updated after the patient was seen, as this information can be updated by other users. Medical History (Updated 11/18/23 @ 11:22 by JEANNE Samaniego) MARY (acute kidney injury) CKD (chronic kidney disease) Diabetes 1.5, managed as type 2 Acute hyperkalemia Fatty infiltration of liver Elbow pain History of rectal fissure Cirrhosis of liver Abdominal pain Hepatic cirrhosis Abdominal pain Pneumonia ETD (eustachian tube dysfunction) Hypertrophy of both inferior nasal turbinates Unilateral hearing loss Nasal septal deviation Rib pain Skin infection Cough Smoking Tobacco abuse counseling Sinusitis Anal fissure History of hemorrhoids Renal insufficiency Prostate cancer GERD (gastroesophageal reflux disease) Torn Achilles tendon COPD (chronic obstructive pulmonary disease) Bronchitis Hyperlipidemia associated with type 2 diabetes mellitus Diabetes type 2, controlled Hypertension associated with diabetes Surgical History History of prostate surgery Hx of hemorrhoidectomy History of hand surgery History of hernia repair History of colonoscopy History of tonsillectomy Family History Father Cancer Heart attack Stroke Mother Heart attack Stroke Social History (Updated 11/17/23 @ 22:09 by Maria C Worley RN) Smoking Status: Current every day smoker tobacco type: cigarettes packs per day: 1 alcohol intake: never substance use type: denies use current occupational status: retired Travel in the last 8 weeks: None household members: spouse housing: house marital status: education level: vocational service: No caffeine: Yes special roxanne needs: No do you feel safe at home: Yes victim of physical abuse: No victim of emotional abuse: No victim of sexual abuse: No would you like helpful sources: No Review of Systems Review of Systems Review of systems:: pertinent systems reviewed and negative unless documented below Meds Home Medications and Allergies Home Medications ?Medication ?Instructions ?Recorded ?Confirmed ?Type aspirin 325 mg tablet 325 mg PO DAILY 08/13/22 11/17/23 History ascorbic acid (vitamin C) 1,000 mg 1,000 mg PO BID 03/27/23 11/17/23 History capsule hydrochlorothiazide 25 mg tablet 25 mg PO DAILY 30 days #30 tabs 09/19/23 11/17/23 Rx semaglutide 7 mg tablet (Rybelsus) 7 mg PO DAILY #30 tabs 09/19/23 11/17/23 Rx amlodipine 5 mg tablet 5 mg PO DAILY 11/17/23 11/17/23 History benazepril 40 mg tablet (Lotensin) 40 mg PO DAILY 11/18/23 11/18/23 History clonidine HCl 0.2 mg tablet 0.2 mg PO BID 11/18/23 11/17/23 History glipizide 10 mg tablet 10 mg PO BID 11/18/23 11/17/23 History metoprolol succinate 200 mg 200 mg PO DAILY 11/18/23 11/18/23 History tablet,extended release 24 hr pantoprazole 40 mg tablet,delayed 40 mg PO BID 11/18/23 11/17/23 History release rosuvastatin 40 mg tablet 40 mg PO DAILY 11/18/23 11/17/23 History sitagliptin phosphate 50 1 tab PO BID 11/18/23 11/17/23 History mg-metformin 1,000 mg tablet (Janumet) New Prescriptions to Start Prescriptions: Allergies Allergy/AdvReac Type Severity Reaction Status Date / Time No Known Allergies Allergy Verified 10/27/23 11:03 Exam Data for Last 24 hours Vital signs and Labs for Last 24 Hours: Temp Pulse Resp BP Pulse Ox O2 Del Method 98.0 F 131 H 18 97/61 L 96 Room Air 08/12/24 18:38 11/17/23 19:01 11/17/23 19:01 11/17/23 19:01 11/17/23 19:01 11/17/23 19:01 Laboratory Results - last 24 hr 11/17/23 18:37: WBC 12.3 H, RBC 4.52 L, Hgb 15.3, Hct 49.0, MCV 108.4 H, MCH 33.9 H, MCHC 31.3 L, RDW 13.7, Plt Count 203, MPV 9.3, Neut % (Auto) 62.8, Lymph % (Auto) 25.6, [place] % (Auto) 8.6, Eos % (Auto) 2.3, Baso % (Auto) 0.8, Neut # (Auto) 7.7, Lymph # (Auto) 3.1, [place] # (Auto) 1.1 H, Eos # (Auto) 0.3, Baso # (Auto) 0.1, PT 10.2, INR 0.90, APTT 26.3, Sodium 140, Potassium 4.4, Chloride 108 H, Carbon Dioxide 24, Anion Gap 12.4, BUN 30 H, Creatinine 1.80 H, Estimated Creat Clear 50, Estimated GFR 37 L, Est GFR ( Amer) 45 L, Glucose 129 H, Calcium 9.5, Magnesium 2.1, Total Bilirubin 0.9, AST 34, ALT 26, Alkaline Phosphatase 66, Troponin I 0.03, NT-Pro-B Natriuret Pep 396 H, Total Protein 7.2, Albumin 4.3, Globulin 2.9, Albumin/Globulin Ratio 1.5, Lipase 402 H, TSH 2.29, Thyroxine (T4) 7.9 Temp Pulse Resp BP Pulse Ox O2 Del Method 97.8 F 64 18 140/78 96 Room Air 03/27/23 15:23 03/27/23 15:23 03/27/23 15:23 03/27/23 15:23 03/27/23 15:23 03/27/23 17:00 Laboratory Results - last 24 hr 03/27/23 15:37: Sodium 139, Potassium 4.4 D, Chloride 104, Carbon Dioxide 21 L, Anion Gap 18.4 H, BUN 35 H, Creatinine 1.70 H, Estimated Creat Clear 53, Estimated GFR 40 L, Est GFR ( Amer) 48 L, Glucose 89, Calcium 9.2 I & O for Last 24 hours: Intake & Output 11/14/23 11/15/23 11/16/23 11/17/23 23:59 23:59 23:59 23:59 Intake Total Balance Weight 97.522 kg Intake & Output 03/24/23 03/25/23 03/26/23 03/27/23 23:59 23:59 23:59 23:59 Weight 98.458 kg Constitutional Constitutional: no acute distress *Routine HEENT Exam Head: Present normocephalic Eye: Present EOMI and PERRL ENT: Present mucous membranes moist *Routine Neck Exam Neck: Present supple; Absent lymphadenopathy *Routine Respiratory Exam Respiratory: Present CTA bilaterally *Routine Cardiovascular Exam Cardiovascular: Present RRR *Routine Abdominal Exam Abdominal: Present soft and normoactive bowel sounds; Absent tenderness *Routine Rectal Exam Rectal:: deferred *Routine Genitalia Exam Genitalia:: deferred *Routine Extremities Exam Extremities: Absent cyanosis, clubbing or edema *Routine Skin Exam Skin: Present warm; Absent rash *Routine Neurological Exam Neurological: Present alert and oriented X3 H&P: Result Imaging and Cardiology EKG: Status: image reviewed by me and Preliminary report CT scan - chest: Status: image reviewed by me, Preliminary report and final report CT scan - abdomen: Status: image reviewed by me, Preliminary report and final report Assessment and Plan *Assessment and plan (1) New onset atrial flutter: Status: Acute Category: Medical Code(s): I48.92 - Unspecified atrial flutter (2) CKD (chronic kidney disease): Status: Acute Category: Medical Code(s): N18.9 - Chronic kidney disease, unspecified (3) Hepatic cirrhosis: Status: Acute Qualifiers: Ascites presence: without ascites Hepatic cirrhosis type: unspecified hepatic cirrhosis Qualified Code(s): K74.60 - Unspecified cirrhosis of liver Category: Medical Code(s): K74.60 - Unspecified cirrhosis of liver (4) Hypertension: Status: Acute Category: Medical Code(s): I10 - Essential (primary) hypertension (5) Type 2 diabetes mellitus: Status: Acute Category: Medical Code(s): E11.9 - Type 2 diabetes mellitus without complications Plan 73-year-old male with a PMHx of hypertension, hyperlipidemia, type 2 diabetes, GERD, prostate cancer presenting to the emergency department for evaluation with concern for chest pain. On route he received aspirin and nitroglycerin by EMS. Fluid resuscitation with a liter bolus was given as initial work up. CT scan noted no obvious large PE and no obvious aortic pathology. Please see their read for final interpretation. Labs were obtained that demonstrated negative troponin. Patient had very mild leukocytosis. BNP is very mildly elevated. Creatinine is around the patient's baseline. He also has a mildly elevated lipase. He does not complain of any abdominal pain. findings discussed with ED. Agreed for inapatient monitoring. Plan as follow: -New onset atrial futtler: Admit patient for inpatient management and continuous cardiac monitoring. Cardiology consulted ECHO ordered on cardizem drip monitor for chest pain \ nitro SL PRN trend troponin Others chronic conditions: CKD at baseline. continue monitoring Cr hep cirrhosis stable. does not complaining of abdominal pain HTN resume home meds NIDDM controlled sliding scale. \ monitor BS Lovenox and aspirin loaded for DVT. protonix for GI bleed ppx Full code Rounded on patient after nurse practitioner. Personally examined and interviewed patient. Agree with exam findings and care plan as documented.
[2023-11-17] MEDS: ENOXAPARIN 40MG/0.4ML SYRINGE 40 MG SQ (21:18)
--- NOTE | 2023-11-17 21:22 | PC.NURSE ---
Pts O2 dropping to 80's while asleep and snoring pt placed on 2L NC MD Dale aware.
--- NOTE | 2023-11-17 21:30 | PC.NURSE ---
Report given to Lj Worley RN
--- NOTE | 2023-11-17 21:47 | PC.NURSE ---
pt arrived to floor via stretcher @21:46
[2023-11-17 22:20] LABS: Hemoglobin A1C 5.6 % (4.0-6.0)
[2023-11-17 22:42] LABS: Troponin I 0.03 ng/ml (0.00-0.034)
[2023-11-18] VITALS (11 sets, daily range): BP systolic 93–137; BP diastolic 56–90; PULSE 65–135; RESP 14–25; TEMP 36.4; O2SAT 2–98; BMI 29.9
[2023-11-18] MEDS: 0.9 % SODIUM CHLORIDE 1000ML 1,000 ML 75 ML IV ×2 (00:41→21:47)
[2023-11-18 01:59] LABS: Troponin I 0.03 ng/ml (0.00-0.034)
[2023-11-18] MEDS: dilTIAZem HCL 100 MG in 0.9 % SODIUM CHLORIDE 100 ML IV (03:26)
[2023-11-18 06:14] LABS: Basophils # 0.1 K/mm3 (0-0.2); Basophils % 0.6 % (0.1-2.0); Eosinophils # 0.2 K/mm3 (0.0-0.4); Eosinophils % 1.9 % (0.1-12.0); Hemoglobin 15.1 g/dL (14.1-18.0); Lymphocytes # 3.1 K/mm3 (0.7-4.5); Lymphocytes % 23.4 % (10-50); Mean Corpuscular HGB Conc 32.8 g/dL (31.8-35.4); Mean Corpuscular Hemoglobin 35.3 pg (27.0-31.2); Mean Corpuscular Volume 107.8 fl (80-94); Mean Platelet Volume 9.7 fl (7.4-10.4); Monocytes # 1.1 K/mm3 (0.1-1.0); Neutrophils # 8.7 K/mm3 (1.8-7.8); Neutrophils % 66.1 % (37.0-80.0); Platelet Count 185 K/mm3 (142-424); Red Blood Count 4.27 M/mm3 (4.60-6.20); Red Cell Distribution Width 13.9 % (11.5-17.5); White Blood Count 13.1 K/mm3 (4.8-10.8)
[2023-11-18 06:17] LABS: Albumin Level 4.1 g/dl (3.5-5.0); Chloride 111 mmol/L (98-107); Potassium 4.7 mmoL/L (3.5-5.1); Sodium 138 mmol/L (136-145)
[2023-11-18 06:20] LABS: Alanine Aminotransferase 25 U/L (12-78); Albumin/Globulin Ratio 1.5 (1.1-1.8); Alkaline Phosphatase 73 U/L (38-126); Anion Gap 6.7 mEq/L (5-15); Aspartate Amino Transferase 37 U/L (17-59); Bilirubin,Total 1.1 mg/dl (0.2-1.3); Blood Urea Nitrogen 25 mg/dl (9-20); Calcium 8.8 mg/dl (8.4-10.2); Carbon Dioxide 25 mmol/L (22.0-30.0); Cholesterol 115 mg/dl (140-200); Creatinine Clearance Estimated 54 mL/min (50-200); Estimated Glomerular Filt Rate 40 ml/min (>60); GFR (African American) 48 ML/MIN (>60); Globulin 2.7 g/dL (1.3-3.2); Glucose 104 mg/dl (74-100); Total Protein,Serum 6.8 g/dl (6.3-8.2); Triglycerides 192 mg/dl (30-150); VLDL Cholesterol 38 mg/dL (0-40)
[2023-11-18 06:21] LABS: Chol/HDL Ratio 2.7 (1-3.5); HDL Cholesterol 42 mg/dl (40-60)
[2023-11-18] MEDS: NITROGLYCERIN 0.4MG SL TABLET 0.4 MG SL ×2 (06:21→06:27)
--- NOTE | 2023-11-18 06:25 | ECG_ITS ---
APPROVED REPORT Exam: Resting ECG HR:124 bpm ECG Measurements Heart Rate 124 AXES QRSd 142 QRS 129 QT 374 T -54 QTc 448 Conclusion ATRIAL FLUTTER/TACHYCARDIA WITH RAPID VENTRICULAR RESPONSE INDETERMINATE AXIS RIGHT BUNDLE BRANCH BLOCK [120+ ms QRS DURATION, UPRIGHT V1, 40+ ms S IN I/aVL/V4/V5/V6] LEFT POSTERIOR FASCICULAR BLOCK [QRS AXIS > 109, INFERIOR Q] POSSIBLE ANTERIOR MYOCARDIAL INFARCTION , OF INDETERMINATE AGE [30 ms Q WAVE IN V3/V4, OR R < 0.2 mV IN V4] MODERATE T-WAVE ABNORMALITY, CONSIDER INFERIOR ISCHEMIA [-0.1+ mV T-WAVE IN II/aVF] ABNORMAL ECG UNCONFIRMED REPORT Electronically signed by : Star Veronica MD 11/19/2023 08:07:14
--- NOTE | 2023-11-18 06:45 | PC.NURSE ---
Pt called out c/o chest pain. On assessment, pt is actively getting his ECHO done leaning up out of the bed and grabbing his chest every few seconds. Pt states he has mid sternal chest pain that radiates up to his left armpit. Sharp, stabbing pain that does not go away but gets worse intermittently. Rates pain up to 8/10 during intermittent waves. Pt was given nitro sublingual tabs x2 per JUN and EKG performed and read as no change by Juliana Levine APRN. On reassessment of pt after ECHO was finished, pt states he is no longer having chest pain. Diltiazem gtt remains infusing, current rate 10mg/hr. HR 90-105. Pt has not voiced any other complaints throughout shift. Aflutter on tele. Call light within reach.
[2023-11-18 06:57] LABS: POC Glucose,Bedside 77 (70-110)
--- NOTE | 2023-11-18 07:27 | HMH.PHAINT1 ---
Pharmacy Intervention Comments: MEDICATION RECONCILIATION COMPLETED ON PATIENT USING EXTERNAL FILL HISTORY FROM PHARMACY. -JOELLEN ROBERTSON, MAICOD
--- OUTSIDE RECORDS SUMMARY | 2023-11-18 07:43 | XMS_ITS | Continuity of Care Document ---
Author Organization [facility] Phone Care Team Providers Care Turn Laster Name Role Phone SOTO ACE Admitting LUZMA ELLIOTT Primary Care SOTO ACE Primary Attending SOTO ACE Unavailable ALLERGIES AND ADVERSE REACTIONS ALLERGIES AND ADVERSE REACTIONS Code System Allergy Substance Adverse Reaction Date Reaction (Severity) Comment Status Reported By Updated By LATEX (Free Text Allergy) Rash (Severe) active [id number] on May 15, 2021 2:13:52 PM [facility] FAMILY HISTORY RELATION: Father Status: Cause of : Unknown Age at : Unknown SNOMED-CT Diagnosis Age At Onset [id number] Malignant tumor of colon RELATION: Mother Status: Cause of : Unknown Age at : Unknown SNOMED-CT Diagnosis Age At Onset [id number] Diabetes mellitus [id number] Cerebrovascular accident RESULTS Patient: CARITO Carroll Date of : [birth year] LABORATORY RESULTS ORDER 200: VITAMIN D TOTAL D 2 D3 (LOINC: 52625-1) ORDER DATE: November 18, 2022 11:24:00 AM [place] Specimen Source: Serum/Plasm a PERFORMING LAB: [address] [id number] Result Comment: Final Result Date: November 18, 2022 12:39:00 PM UT (TECH: KSM) LOINC TEST FLAG RESULT [place] [address]9 Calcidiol+Calci ferol [Mass/volume] in Serum or Plasma N 48.3 ng/mL 30 ng/mL - 100 ng/mL November 18, 2022 12:39:00 PM UT (TECH: KSM) ORDER 300: RENAL FUNCTION PA KHADAR (LOINC: 43686-1) ORDER DATE: November 18, 2022 11:24:00 AM UT Specimen Source: Serum/Plasm a PERFORMING LAB: [facility] [address] [facility] [id number] Result Comment: Final Result Date: November 18, 2022 12:39:00 PM UT (TECH: [facility]oy[facility]) LOINC TEST FLAG RESULT REFERENCE RANGE UPDA CARLOS MANUEL BY 2951-2 Sodium [Moles/volume] in Serum or Plasma N 141 mmol/L 136 mmol/L - 145 mmol/L November 18, 2022 12:39:00 PM UTC (TECH: [employer]M) 2823-3 Potassium [Moles/volume] in Serum or Plasma N 5.1 mmol/L 3.5 mmol/L - 5.1 mmol/L November 18, 2022 12:39:00 PM UTC (TECH: [employer]) 2075-0 Chloride [Moles/volume] in Serum or Plasma N 102 mmol/L 98 mmol/L - 107 mmol/L November 18, 2022 12:39:00 PM UTC (TECH: KSM) 8-9 Carbon dioxide, total [Moles/volume] in Serum or Plasma N 31 mmol/L 21 mmol/L - 32 mmol/L November 18, 2022 12:39:00 PM UTC (TECH: [employer]) 2345-7 Glucose [Mass/volume] in Serum or Plasma H 173 mg/dL 70 mg/dL - 110 mg/dL November 18, 2022 12:39:00 PM UTC (TECH: KSM) 3094-0 Urea nitrogen [Mass/volume] in Serum or Plasma N 14 mg/dL 7 mg/dL - 18 mg/dL November 18, 2022 12:39:00 PM UTC (TECH: [employer]) 2160-0 Creatinine [Mass/volume] in Serum or Plasma H 1.4 mg/dL 0.8 mg/dL - 1.3 mg/dL November 18, 2022 12:39:00 PM UTC (TECH: [employer]) 42737-8 Glomerular filtration rate/1.73 sq M.predicted by Creatinine-based formula (MDRD) L 53 mL/min >60 November 18, 2022 12:39:00 PM UTC (TECH: KSM) 1751-7 Albumin [Mass/volume] in Serum or Plasma N 4.0 g/dL 3.4 g/dL - 5.0 g/dL November 18, 2022 12:39:00 PM UTC (TECH: [employer]) 78631-6 Calcium [Mass/volume] in Serum or Plasma N 9.4 mg/dL 8.5 mg/dL - 10.1 mg/dL November 18, 2022 12:39:00 PM UTC (TECH: [employer]) 38006-0 Calcium [Mass/volume] corrected for total protein in Serum or Plasma N 9.4 mg/dL 8.5 mg/dL - 10.1 mg/dL November 18, 2022 12:39:00 PM UTC (TECH: [employer]) 2777-1 Phosphate [Mass/volume] in Serum or Plasma N 3.5 mg/dL 2.5 mg/dL - 4.9 mg/dL November 18, 2022 12:39:00 PM UTC (TECH: [employer]) ORDER 400: PROTEIN/CREATININ E URINE (LOINC: 2890-2) ORDER DATE: November 18, 2022 11:24:00 AM UTC Specimen Source: URINE PERFORMING LAB: [address] [id number] Result Comment: Final Result Date: November 18, 2022 11:37:00 AM UTC (TECH: [employer]) LOINC TEST FLAG RESULT REFERENCE RANGE UPDA CARLOS MANUEL BY 2888-6 Protein [Mass/volume] in Urine H 133 mg/dL 0.0 mg/dL - 15.0 mg/dL November 18, 2022 11:37:00 AM UTC (TECH: [employer]) 2161-8 Creatinine [Mass/volume] in Urine H 346.6 mg/dL 30 mg/dL - 125 mg/dL November 18, 2022 11:37:00 AM UTC (TECH: [employer]) 2890-2 Protein/Creatinine [Mass Ratio] in Urine H 384 Ratio 0 Ratio - 200 Ratio November 18, 2022 11:37:00 AM UTC (TECH: [employer]) ORDER 500: UA WITH MICROSCOP IC (LOINC: 67008-5) ORDER DATE: November 18, 2022 11:24:00 AM UTC Specimen Source: URINE PERFORMING LAB: [address] [id number] Result Comment: Final Result Date: November 18, 2022 11:37:00 AM UTC (TECH: [employer]) LOINC TEST FLAG RESULT REFERENCE RANGE UPDA CARLOS MANUEL BY 5778-6 Color of Urine N yellow YELLOW Augus 2022 11:37:00 AM UTC (TECH: [employer]) 5767-9 Appearance of Urine N clear CLEAR November 18, 2022 11:37:00 AM UTC (TECH: [employer]) 5792-7 Glucose [Mass/volume] in Urine by Test strip N NORM NORMAL November 18, 2022 11:37:00 AM UTC (TECH: [employer]) 94344-9 Bilirubin.total [Mass/volume] in Urine by Automated test strip N NEGATIVE NEGATIVE November 18, 2022 11:37:00 AM UTC (TECH: [employer]) 5797-6 Ketones [Mass/volume] in Urine by Test strip N 5 (TRACE) mg/dL NEGATIVE November 18, 2022 11:37:00 AM UTC (TECH: [employer]) 2965-2 Specific gravity of Urine N 1.025 1.005 - 1.035 November 18, 2022 11:37:00 AM UTC (TECH: [employer]) 14295-6 Erythrocytes [#/volume] in Urine by Automated test strip N NEGATIVE NEGATIVE November 18, 2022 11:37:00 AM UTC (TECH: [employer]) 93363-5 pH of Urine by Automated test strip N 5.00 5.0 - 7.5 November 18, 2022 11:37:00 AM UTC (TECH: [employer]) 36387-4 Protein [Presence] in Urine by Test strip N 100 (2+) mg/dL NEGATIVE November 18, 2022 11:37:00 AM UTC (TECH: [employer]) 26907-2 Urobilinogen [Mass/volume] in Urine by Automated test strip N 1 mg/dL NORMAL November 18, 2022 11:37:00 AM UTC (TECH: [employer]) 69965-0 Nitrate [Presence] in Urine N NEGATIVE NEGATIVE November 18, 2022 11:37:00 AM UTC (TECH: [employer]) 67332-4 Leukocytes [#/volume] in Urine by Test strip N TRACE (25) /mcL NEGATIVE November 18, 2022 11:37:00 AM UTC (TECH: [employer]) 94197-6 Microscopic observation [Identifier] in Urine sediment by Light microscopy N NO November 18, 2022 11:37:00 AM UTC (TECH: KSM) 02969-2 Erythrocytes [#/area] in Urine sediment by Microscopy high power field N NONE SEEN 0-3 November 18, 2022 11:37:00 AM UTC (TECH: KSM) 5821-4 Leukocytes [#/area] in Urine sediment by Microscopy high power field N 0-3 NONE SEEN November 18, 2022 11:37:00 AM UTC (TECH: KSM) 68440-6 Epithelial cells.squamous [#/area] in Urine sediment by Microscopy high power field N 5-10 NONE SEEN November 18, 2022 11:37:00 AM UTC (TECH: KSM) 5769-5 Bacteria [#/area] in Urine sediment by Microscopy high power field N TRACE NONE SEEN November 18, 2022 11:37:00 AM UTC (TECH: KSM) ORDER 600: PTH INTACT (LOINC : 2731-8) ORDER DATE: November 18, 2022 11:24:00 AM UTC Specimen Source: Plasma PERFORMING LAB: [facility] [address] [facility] [id number] Result Comment: November 19 3:11:00 PM UTC Performed at: [facility] Result Comment: November 19, 2022 3:11:00 PM UTC [address] [place], [place] [id number] Result Comment: November 19, 2022 3:11:00 PM UTC Head Waitress: Tesfaye Willoughby PhD, Phone: [phone] Result Comment: November 19, 2022 3:11:00 PM UTC Final Result Date: November 19, 2022 11:25:00 AM UTC (TECH: LAB) LOINC TEST FLAG RESULT REFERENCE RANGE UPDA CARLOS MANUEL BY 2731-8 Parathyrin.intact [Mass/volume] in Serum or Plasma N 29 pg/mL 15 pg/mL - 65 pg/mL November 19 11:25:00 AM UTC (TECH: LAB) LABORATORY NARRATIVE RESULTS Information is not available RADIOLOGY RESULTS Information is not available PATHOLOGY NARRATIVE RESULTS Information is not available MICROBIOLOGY RESULTS No Micro Labs/Results Exist for Patient BLOOD ADMIN RESULTS Information is not available TREATMENT PLAN DISCHARGE MEDICATIONS Status RXNORM Medication Dose Route Frequency Dates Comments U pdated By Patient discharge medication information is not available. PATIENT OPEN ORDERS Code System Description Frequency Occurrences Priority [place] [address]-1 [facility] Collection method - Specimen ONE TIME 0 Routine November 18, 2022 11:24:0 0 AM [facility] MALKA LION MD [id number] on November 18, 2022 11:24:00 AM [facility] SCHEDULED PROCEDURES Code System Description Status Scheduled Date Upd ated By Patient scheduled procedure information is not available. MEDICATIONS HOME MEDICATIONS Status RXNORM Medication Dose Route Frequency Dates Comments R eported By Updated By Drug Treatment Unknown DISCHARGE MEDICATIONS Status RXNORM Medication Dose Route Frequency Dates Comments Physic jose Updated By No Discharge Medication Info rmation Available INPATIENT MEDICATIONS Status RXNORM Medication Dose Route Frequency Rate Quantity Dates Comments Physician Updated By No Inpatient Medication Info rmation Available SOCIAL HISTORY SOCIAL HISTORY SNOMED-CT Social History Element Description Effective Dates Offered Cessation Comment UpdatedBy [id number] Historical Tobacco smoking status Current Every Day Smoker [id number] on May 14, 2021 3:20:33 PM [facility] SOCIAL HISTORY - Gender Sex: Male SOCIAL HISTORY - Sexual Behavior Sexual Orientation Gender Identity SNOMED-CT Description SNO MED -CT Description Activity Level No of Partners Partner Type UpdatedBy Information is not available HEALTH CONCERNS Problems Concern Status Health Concern problem infor mation not available. Smoking Status Status Years Used Consumed packs p er day Health Concern smoking histo ry information not available. Family History Concern Status Health Concern family histor y information not available. ENCOUNTERS ENCOUNTER INFORMATION Reason for Visit N18.30 CHRONIC KIDNE Y DISEASE, STAGE 3 Admission November 18, 2022 11:14:[address] [address] Discharge November 18, 2022 11:14:00 AM [facility] DISCHARGED TO HOME OR SELF CARE ENCOUNTER DIAGNOSES Notes information is not jorge ilable. Code System Diagnosis Onset Date Diagnosis information is not available. ABSTRACT DIAGNOSES Code System Diagnosis Updated By N18.30 ICD10 CHRONIC KIDNEY D ISEASE, STAGE 3 UNSPECIFIED [id number] on November 19, 2022 11:28:53 AM [facility] N18.30 ICD10 CHRONIC KIDNEY D ISEASE, STAGE 3 UNSPECIFIED [id number] on November 19, 2022 11:28:53 AM [facility] CARE TEAM Care Turn Laster Role SOTO ACE Admitting LUZMA ELLIOTT Primary Care SOTO ACE Primary Attending SOTO ACE Referring CARE TEAM CARE pattern stamper Role on Team Status Start Date End Date Update d By LXEI SEGAL MD PCP normal November 18, 2022 4:00:00 AM [place] November 18, 2022 4:00:00 AM [facility] [id number] on November 18, 2022 11:17:02 AM [facility] MALKA ROMAN Referring normal November 18, 2022 4:00:00 AM UT November 18, 2022 4:00:00 AM [facility] [id number] on November 18, 2022 11:17:02 AM [facility] MALKA ROMAN Attending normal November 18, 2022 4:00:00 AM [facility] November 18, 2022 4:00:00 AM [facility] [id number] on November 18, 2022 11:17:02 AM [facility] MALKA ROMAN Admitting normal November 18, 2022 4:00:00 AM [facility] November 18, 2022 4:00:00 AM [facility] [id number] on November 18, 2022 11:17:02 AM [facility]
--- OUTSIDE RECORDS SUMMARY | 2023-11-18 07:43 | XMS_ITS | Continuity of Care Document ---
Author Organization [facility] Phone Care Team Providers Care Lead Burner Supervisor Name Role Phone SOTO ACE Admitting LUZMA ELLIOTT Primary Care SOTO ACE Primary Attending SOTO ACE Unavailable ALLERGIES AND ADVERSE REACTIONS ALLERGIES AND ADVERSE REACTIONS Code System Allergy Substance Adverse Reaction Date Reaction (Severity) Comment Status Reported By Updated By LATEX (Free Text Allergy) Rash (Severe) active [id number] on May 15, 2021 2:13:52 PM [facility] FAMILY HISTORY RELATION: Father Status: Cause of : Unknown Age at : Unknown SNOMED-CT Diagnosis Age At Onset [id number] Malignant tumor of colon RELATION: Mother Status: Cause of : Unknown Age at : Unknown SNOMED-CT Diagnosis Age At Onset [id number] Diabetes mellitus [id number] Cerebrovascular accident RESULTS Patient: CARITO Carroll Date of : January [birth year] LABORATORY RESULTS ORDER 200: VITAMIN D TOTAL D 2 D3 (LOINC: 60272-6) ORDER DATE: November 18, 2022 11:24:00 AM [facility] Specimen Source: Serum/Plasm a PERFORMING LAB: [address] [id number] Result Comment: Final Result Date: November 18, 2022 12:39:00 PM [facility] (TECH: KSM) LOINC TEST FLAG RESULT [place] [address]-6 Calcidiol+Calci ferol [Mass/volume] in Serum or Plasma N 48.3 ng/mL 30 ng/mL - 100 ng/mL November 18, 2022 12:39:00 PM [facility] (TECH: KSM) ORDER 300: RENAL FUNCTION PA KHADAR (LOINC: 58194-9) ORDER DATE: November 18, 2022 11:24:00 AM [place] Specimen Source: Serum/Plasm a PERFORMING LAB: [facility] [id number] Result Comment: Final Result Date: November 18, 2022 12:39:00 PM [facility] (TECH: KSK[employer]il) LOINC TEST FLAG RESULT REFERENCE RANGE UPDA CARLOS MANUEL BY 2951-2 Sodium [Moles/volume] in Serum or Plasma N 141 mmol/L 136 mmol/L - 145 mmol/L November 18, 2022 12:39:00 PM UTC (TECH: [employer]) 2823-3 Potassium [Moles/volume] in Serum or Plasma N 5.1 mmol/L 3.5 mmol/L - 5.1 mmol/L November 18, 2022 12:39:00 PM UTC (TECH: [employer]) 2075-0 Chloride [Moles/volume] in Serum or Plasma N 102 mmol/L 98 mmol/L - 107 mmol/L November 18, 2022 12:39:00 PM UTC (TECH: KSM) 8-9 Carbon dioxide, total [Moles/volume] in Serum or Plasma N 31 mmol/L 21 mmol/L - 32 mmol/L November 18, 2022 12:39:00 PM UTC (TECH: [employer]) 2345-7 Glucose [Mass/volume] in Serum or Plasma H 173 mg/dL 70 mg/dL - 110 mg/dL November 18, 2022 12:39:00 PM UTC (TECH: KSM) 3094-0 Urea nitrogen [Mass/volume] in Serum or Plasma N 14 mg/dL 7 mg/dL - 18 mg/dL November 18, 2022 12:39:00 PM UTC (TECH: [employer]) 2160-0 Creatinine [Mass/volume] in Serum or Plasma H 1.4 mg/dL 0.8 mg/dL - 1.3 mg/dL November 18, 2022 12:39:00 PM UTC (TECH: [employer]) 74277-8 Glomerular filtration rate/1.73 sq M.predicted by Creatinine-based formula (MDRD) L 53 mL/min >60 November 18, 2022 12:39:00 PM UTC (TECH: KSM) 1751-7 Albumin [Mass/volume] in Serum or Plasma N 4.0 g/dL 3.4 g/dL - 5.0 g/dL November 18, 2022 12:39:00 PM UTC (TECH: [employer]) 26148-8 Calcium [Mass/volume] in Serum or Plasma N 9.4 mg/dL 8.5 mg/dL - 10.1 mg/dL November 18, 2022 12:39:00 PM UTC (TECH: [employer]) 46665-2 Calcium [Mass/volume] corrected for total protein in Serum or Plasma N 9.4 mg/dL 8.5 mg/dL - 10.1 mg/dL November 18, 2022 12:39:00 PM UTC (TECH: [employer]) 2777-1 Phosphate [Mass/volume] in Serum or Plasma N 3.5 mg/dL 2.5 mg/dL - 4.9 mg/dL November 18, 2022 12:39:00 PM UTC (TECH: [employer]) ORDER 400: PROTEIN/CREATININ E URINE (LOINC: 2890-2) ORDER DATE: November 18, 2022 11:24:00 AM UTC Specimen Source: URINE PERFORMING LAB: [address] [id number] Result Comment: Final Result Date: November 18, 2022 11:37:00 AM UTC (TECH: [employer]) LOINC TEST FLAG RESULT REFERENCE RANGE UPDA CARLOS MANUEL BY 2888-6 Protein [Mass/volume] in Urine H 133 mg/dL 0.0 mg/dL - 15.0 mg/dL November 18, 2022 11:37:00 AM UTC (TECH: [employer]) 2161-8 Creatinine [Mass/volume] in Urine H 346.6 mg/dL 30 mg/dL - 125 mg/dL November 18, 2022 11:37:00 AM UTC (TECH: [employer]) 2890-2 Protein/Creatinine [Mass Ratio] in Urine H 384 Ratio 0 Ratio - 200 Ratio November 18, 2022 11:37:00 AM UTC (TECH: [employer]) ORDER 500: UA WITH MICROSCOP IC (LOINC: 50743-4) ORDER DATE: November 18, 2022 11:24:00 AM UTC Specimen Source: URINE PERFORMING LAB: [address] [id number] Result Comment: Final Result Date: November 18, 2022 11:37:00 AM UTC (TECH: [employer]) LOINC TEST FLAG RESULT REFERENCE RANGE UPDA CARLOS MANUEL BY 5778-6 Color of Urine N yellow YELLOW Augus 2022 11:37:00 AM UTC (TECH: [employer]) 5767-9 Appearance of Urine N clear CLEAR November 18, 2022 11:37:00 AM UTC (TECH: [employer]) 5792-7 Glucose [Mass/volume ] in Urine by Test strip N NORM NORMAL November 11:37:00 AM UTC (TECH: [employer]) 67090-7 Bilirubin.total [Mass/volume] in Urine by Automated test strip N NEGATIVE NEGATIVE November 052022 11:37:00 AM UTC (TECH: [employer]) 5797-6 Ketones [Mass/volume ] in Urine by Test strip N 5 (TRACE) mg/dL NEGATIVE November 11:37:00 AM UTC (TECH: [employer]) 2965-2 Specific gravity of Urine N 1.025 1.005 - 1.035 November 18, 2022 11:37:00 AM UTC (TECH: [employer]) 45134-9 Erythrocytes [#/volu me] in Urine by Automated test strip N NEGATIVE NEGATIVE November 18, 2022 11:37:00 AM UTC (TECH: [employer]) 41942-8 pH of Urine by Automated test strip N 5.00 5.0 - 7.5 November 18, 2022 11:37:00 AM UTC (TECH: [employer]) 13739-2 Protein [Presence] i n Urine by Test strip N 100 (2+) mg/dL NEGATIVE November 18, 023 11:37:00 AM UTC (TECH: [employer]) 31819-0 Urobilinogen [Mass/volume] in Urine by Automated test strip N 1 mg/dL NORMAL November 052022 11:37:00 AM UTC (TECH: [employer]) 63134-2 Nitrate [Presence] i n Urine N NEGATIVE NEGATIVE November 18, 2022 11:37:00 AM UTC (TECH: [employer]) 34589-3 Leukocytes [#/volume ] in Urine by Test strip N TRACE (25) /mcL NEGATIVE November 11:37:00 AM UTC (TECH: [employer]) 87859-7 Microscopic observat ion [Identifier] in Urine sediment by Light microscopy N NO November 18, 2022 11:37:00 AM [place] (TECH: [employer]) 98128-1 Erythrocytes [#/area ] in Urine sediment by Microscopy high power field N NONE SEEN 0-3 November 18, 2022 11:37:00 AM [facility] (TECH: [employer]) 5821-4 Leukocytes [#/area] in Urine sediment by Microscopy high power field N 0-3 NONE SEEN November 18, 2022 11:37:00 AM [facility] (TECH: [employer]) 15026-3 Epithelial cells.squamous [#/area] in Urine sediment by Microscopy high power field N 5-10 NONE SEEN November 18, 2022 11:37:00 AM [facility] (TECH: [employer]) 5769-5 Bacteria [#/area] in Urine sediment by Microscopy high power field N TRACE NONE SEEN November 18, 2022 11:37:00 AM [facility] (TECH: [employer]) LABORATORY NARRATIVE RESULTS Information is not available [...] Priority [place] [address]-4 LOINC Collection method - Specimen ONE TIME 0 Routine November 18, 2022 11:24:0 0 AM [facility] MALKA LION MD [id number] on November 18, 2022 11:24:00 AM [facility] 2731-8 LOINC Parathyrin.in tact [Mass/volume] in Serum or Oscar ONE TIME 0 Routine November 18, 2022 11:24:0 0 AM [facility] MALKA LION MD [id number] on November 18, 2022 11:24:00 AM [facility] SCHEDULED PROCEDURES Code System Description Status Scheduled [...] Description Effective Dates Offered Cessation Comment UpdatedBy [id number] Historical Tobacco smoking status Current Every Day Smoker [id number] on May 14, 2021 3:20:33 PM [facility] SOCIAL HISTORY - Gender Sex: Male SOCIAL [...] 3 Admission November 18, 2022 11:14:[address] [address] Discharge November 18, 2022 11:14:00 AM [facility] DISCHARGED TO HOME OR SELF CARE ENCOUNTER DIAGNOSES Notes information is not jorge ilable. Code System Diagnosis Onset Date Diagnosis information is not available. ABSTRACT DIAGNOSES Code System Diagnosis Updated By N18.30 ICD10 CHRONIC KIDNEY D ISEASE, STAGE 3 UNSPECIFIED [id number] on November 19, 2022 11:28:53 AM [facility] N18.30 ICD10 CHRONIC KIDNEY D ISEASE, STAGE 3 UNSPECIFIED [id number] on November 19, 2022 11:28:53 AM [facility] CARE TEAM Care Lead Burner Supervisor Role SOTO ACE Admitting LUZMA ELLIOTT Primary Care SOTO ACE Primary Attending SOTO ACE Referring CARE TEAM CARE station tender Role on Team Status Start Date End Date Update d By LEXI SEGAL MD PCP normal November 18, 2022 4:00:00 AM [facility] November 18, 2022 4:00:00 AM [facility] [id number] on November 18, 2022 11:17:02 AM [facility] MALKA ROMAN Referring normal November 18, 2022 4:00:00 AM [facility] November 18, 2022 4:00:00 AM [facility] [id number] on November 18, 2022 11:17:02 AM [facility] MALKA ROMAN Attending normal November 18, 2022 4:00:00 AM [facility] November 18, 2022 4:00:00 AM [facility] [id number] on November 18, 2022 11:17:02 AM [facility] MALKA LION MD PHY Admitting normal November 18, 2022 4:00:00 AM [facility] November 18, 2022 4:00:00 AM [facility] [id number] on November 18, 2022 11:17:02 AM [facility]
--- OUTSIDE RECORDS SUMMARY | 2023-11-18 07:43 | XMS_ITS | Continuity of Care Document ---
Author Organization [facility] [employer] Phone Care Team Providers Care Shot Polisher Name Role Phone JOSHUA MCDERMOTT Primary Attending [phone] LUZMA ELLIOTT Primary Care [phone] JOSHUA MCDERMOTT Unavailable JOSHUA MCDERMOTT Admitting ALLERGIES AND ADVERSE REACTIONS ALLERGIES AND ADVERSE REACTIONS Code System Allergy Substance Adverse Reaction Date Reaction (Severity) Comment Status Reported By Updated By LATEX (Free Text Allergy) Rash (Severe) active [id number] on May 15, 2021 2:13:52 PM [facility] FAMILY HISTORY RELATION: Father Status: Cause of : Unknown Age at : Unknown SNOMED-CT Diagnosis Age At Onset [id number] Malignant tumor of colon RELATION: Mother Status: Cause of : Unknown Age at : Unknown SNOMED-CT Diagnosis Age At Onset [id number] Diabetes mellitus [id number] Cerebrovascular accident TREATMENT PLAN DISCHARGE MEDICATIONS Status RXNORM Medication Dose Route Frequency Dates Comments U pdated By Patient discharge medication information is not available. PATIENT OPEN ORDERS Code System Description Frequency Occurrences Priority Start Date Ordering Physician Updated By 2857-1 INC Prostate specific Ag [Mass/volume ] in Serum or ONE TIME 0 Routine March 20, 2023 7:25:00 PM [facility] BALDEMAR Lutz MD [id number] on March 20, 2023 7:25:00 PM [facility] 50021-5 INC Collection method - Specimen ONE TIME 0 Routine March 20, 2023 7:25:00 PM [facility] BALDEMAR Lutz MD [id number] on March 20, 2023 7:25:00 PM [facility] SCHEDULED PROCEDURES Code System [...] Description Effective Dates Offered Cessation Comment UpdatedBy [id number] Historical Tobacco smoking status Current Every Day Smoker [id number] on May 14, 2021 3:20:33 PM [facility] SOCIAL HISTORY - Gender [...] available. ENCOUNTERS ENCOUNTER INFORMATION Reason for Visit C61 Admission March 20, 2023 7:10:[address] [address] Discharge March 20, 2023 7:10:00 PM [facility] DISCHARGED TO HOME OR SELF CARE ENCOUNTER DIAGNOSES Notes information is not jorge ilable. Code System Diagnosis Onset Date Diagnosis information is not available. ABSTRACT DIAGNOSES Code System Diagnosis Updated By Abstract Diagnosis informati on is not available. CARE TEAM Care Shot Polisher Role JOSHUA MCDERMOTT Primary Attending LUZMA ELLIOTT Primary Care JOSHUA MCDERMOTT Referring JOSHUA MCDERMOTT Admitting CARE TEAM CARE evp head of [employer] strategy Role on Team Status Start Date End Date Update d By BALDEMAR Lutz MD Referring normal March 20, 2023 5:00:00 AM [facility] March 20, 2023 7:10:00 PM [facility] [id number] on March 20, 2023 7:13:36 PM [facility] BALDEMAR Lutz MD Attending normal March 20, 2023 5:00:00 AM [facility] March 20, 2023 7:10:00 PM [facility] [id number] on March 20, 2023 7:13:36 PM [facility] BALDEMAR Lutz MD Admitting normal March 20, 2023 5:00:00 AM [facility] March 20, 2023 7:10:00 PM [facility] [id number] on March 20, 2023 7:13:36 PM [facility] LEXI SEGAL MD PCP normal March 20, 2023 5:00:00 AM [facility] March 20, 2023 7:10:00 PM [facility] [id number] on March 20, 2023 7:13:36 PM [facility]
--- OUTSIDE RECORDS SUMMARY | 2023-11-18 07:43 | XMS_ITS | Continuity of Care Document ---
Author Organization [facility] Phone Care Team Providers Care Co Founder Name Role Phone JENA BANEGAS Admitting [phone] JENA BANEGAS Primary Attending [phone] JENA BANEGAS Unavailable LUZMA ELLIOTT Primary Care ALLERGIES AND ADVERSE REACTIONS ALLERGIES AND ADVERSE REACTIONS Code System Allergy Substance Adverse Reaction Date Reaction (Severity) Comment Status Reported By Updated By LATEX (Free Text Allergy) Rash (Severe) active [id number] on May 15, 2021 2:13:52 PM [facility] FAMILY HISTORY RELATION: Father Status: Cause of : Unknown Age at : Unknown SNOMED-CT Diagnosis Age At Onset [id number] Malignant tumor of colon RELATION: Mother Status: Cause of : Unknown Age at : Unknown SNOMED-CT Diagnosis Age At Onset 14598018 Diabetes mellitus [id number] Cerebrovascular accident RESULTS Patient: CARITO Carroll Date of : January [birth year] LABORATORY RESULTS ORDER 200: CBC AUTO W DIFF ( LOINC: 52075-4) ORDER DATE: August 11, 2023 11:32:00 AM [facility] Specimen Source: Whole Blood Specimen Type: Whole blood s ample PERFORMING LAB: [address] [id number] Result Comment: Final Result Date: August 11, 2023 11:48:00 AM [facility] (TECH: MRB) LOINC TEST FLAG RESULT REFERENCE RANGE UPDA CARLOS MANUEL BY 6690-2 Leukocytes [#/volume] in Blood by Automated count N 11.2 10^3/uL 4.5 10^3/uL - 11.5 10^3/uL August 11, 2023 11:48:00 AM [facility] (TECH: MRB) 789-8 Erythrocytes [#/volume] in Blood by Automated count N 4.59 10^6/uL 4.25 10^6/uL - 5.57 10^6/uL August 11, 2023 11:48:00 AM UTC (TECH: [employer]) 718-7 Hemoglobin [Mass/volume] in Blood N 15.3 g/dL 13.5 g/dL - 17.2 g/dL August 11, 2023 11:48:00 AM UTC (TECH: MRB) 56546-8 Hematocrit [Volume Fraction] of Blood N 45.1 % 42.0 % - 52.0 % August 11, 2023 11:48:00 AM UTC (TECH: [employer]) 787-2 Erythrocyte mean corpuscular volume [Entitic volume] by Automated count H 98.3 fl 80 fl - 95 fl August 11, 2023 11:48:00 AM UTC (TECH: [employer]) 57379-2 Erythrocyte mean corpuscular hemoglobin [Entitic mass] in Blood from Fetus by Automated count N 33.3 pg 27.0 pg - 34.0 pg August 11, 2023 11:48:00 AM UTC (TECH: [employer]) 57252-3 Erythrocyte mean corpuscular hemoglobin concentration [Mass/volume] in Blood from Fetus by Automated count N 33.9 g/dL 32.0 g/dL - 36.0 g/dL August 11, 2023 11:48:00 AM UTC (TECH: MRB) 00854-9 Platelets [#/volume] in Blood N 184 10^3/uL 150 10^3/uL - 450 10^3/uL August 11, 2023 11:48:00 AM UTC (TECH: MRB) 95498-6 Erythrocyte distribution width [Ratio] N 12.3 % 12.3 % - 15.1 % August 11, 2023 11:48:00 AM UTC (TECH: MRB) 08133-9 Platelet mean volume [Entitic volume] in Blood by Automated count H 11.1 fl 7.4 fl - 10.4 fl August 11, 2023 11:48:00 AM UTC (TECH: MRB) 89943-3 Granulocytes/100 leukocytes in Blood by Automated count N 70.6 % 40 % - 75 % August 11, 2023 11:48:00 AM UTC (TECH: MRB) 736-9 Lymphocytes/100 leukocytes in Blood by Automated count N 17.9 % 15 % - 57 % August 11, 2023 11:48:00 AM UTC (TECH: MRB) 5905-5 Monocytes/100 leukocytes in Blood by Automated count N 8.1 % 4.0 % - 12.0 % August 11, 2023 11:48:00 AM UTC (TECH: MRB) 713-8 Eosinophils/100 leukocytes in Blood by Automated count N 2.9 % 0.0 % - 4.0 % August 11, 2023 11:48:00 AM UTC (TECH: MRB) 706-2 Basophils/100 leukocytes in Blood by Automated count N 0.3 % 0.0 % - 1.0 % August 11, 2023 11:48:00 AM UTC (TECH: MRB) 99768-2 Immature granulocytes [#/volume] in Blood N 0.2 % 0.0 % - 0.8 % August 11, 2023 11:48:00 AM UTC (TECH: MRB) 02208-0 Granulocytes [#/volume] in Blood by Automated count N 7.92 10^3/uL August 11, 2023 11:48:00 AM UTC (TECH: MRB) 731-0 Lymphocytes [#/volume] in Blood by Automated count N 2.01 10^3/uL August 11, 2023 11:48:00 AM UTC (TECH: MRB) 742-7 Monocytes [#/volume] in Blood by Automated count N 0.91 10^3/uL August 11, 2023 11:48:00 AM UTC (TECH: MRB) 711-2 Eosinophils [#/volume] in Blood by Automated count N 0.32 10^3/uL August 11, 2023 11:48:00 AM UTC (TECH: MRB) 704-7 Basophils [#/volume] in Blood by Automated count N 0.03 10^3/uL August 11, 2023 11:48:00 AM UTC (TECH: MRB) 89332-8 Immature granulocytes [#/volume] in Blood N 0.02 10^3/uL August 11, 2023 11:48:00 AM UTC (TECH: MRB) 27370-4 Manual differential performed [Presence] in Blood N NO August 11, 2023 11:48:00 AM UTC (TECH: MRB) ORDER 300: BASIC METABOLIC P BEENA (LOINC: 85228-4) ORDER DATE: August 11, 2023 11:32:00 AM [facility] Specimen Source: Serum/Plasm a Specimen Type: Acellular blo od (serum or plasma) specimen PERFORMING LAB: [address] [id number] Result Comment: Final Result Date: August 11, 2023 12:15:00 PM [facility] (TECH: MRB) LOINC TEST FLAG RESULT REFERENCE RANGE UPDA CARLOS MANUEL BY 2951-2 Sodium [Moles/volume] in Serum or Plasma N 142 mmol/L 136 mmol/L - 145 mmol/L August 11, 2023 12:15:00 PM [facility] (TECH: MRB) 2823-3 Potassium [Moles/volume] in Serum or Plasma N 4.7 mmol/L 3.5 mmol/L - 5.1 mmol/L August 11, 2023 12:15:00 PM [facility] (TECH: MRB) 2075-0 Chloride [Moles/volume] in Serum or Plasma N 105 mmol/L 98 mmol/L - 107 mmol/L August 11, 2023 12:15:00 PM [facility] (TECH: MRB) 8-9 Carbon dioxide, total [Moles/volume] in Serum or Plasma N 25 mmol/L 21 mmol/L - 32 mmol/L August 11, 2023 12:15:00 PM [facility] (TECH: MRB) 03753-1 Anion gap 3 in Serum or Plasma N 12.0 August 11, 2023 12:15:00 PM [facility] (TECH: MRB) 2345-7 Glucose [Mass/volume] in Serum or Plasma H 164 mg/dL 70 mg/dL - 110 mg/dL August 11, 2023 12:15:00 PM UTC (TECH: MRB) 3094-0 Urea nitrogen [Mass/volume] in Serum or Plasma H 28 mg/dL 7 mg/dL - 18 mg/dL August 11, 2023 12:15:00 PM [facility] (TECH: MRB) 2160-0 Creatinine [Mass/volume] in Serum or Plasma H 1.8 mg/dL 0.8 mg/dL - 1.3 mg/dL August 11, 2023 12:15:00 PM [facility] (TECH: MRB) 3097-3 Urea nitrogen/Creatinin e [Mass Ratio] in Serum or Plasma N 15.6 Ratio 9 Ratio - 21 Ratio August 11, 2023 12:15:00 PM [facility] (TECH: MRB) 29860-6 Glomerular filtration rate/1.73 sq M.predicted by Creatinine-based formula (MDRD) L 39 mL/min >60 August 11, 2023 12:15:00 PM [facility] (TECH: MRB) 26042-4 Calcium [Mass/volume] in Serum or Plasma N 9.5 mg/dL 8.5 mg/dL - 10.1 mg/dL August 11, 2023 12:15:00 PM [facility] (TECH: MRB) ORDER 400: LIPID PANEL (LOIN C: 61062-8) ORDER DATE: August 11, 2023 11:32:00 AM [facility] Specimen Source: Serum/Plasm a Specimen Type: Acellular blo od (serum or plasma) specimen PERFORMING LAB: [address] [id number] Result Comment: Final Result Date: August 11, 2023 12:15:00 PM [facility] (TECH: MRB) LOINC TEST FLAG RESULT REFERENCE RANGE UPDA CARLOS MANUEL BY 2571-8 Triglyceride [Mass/volume] in Serum or Plasma N 148 mg/dL 20 mg/dL - 200 mg/dL August 11, 2023 12:15:00 PM [facility] (TECH: MRB) 2093-3 Cholesterol [Mass/volume] in Serum or Plasma N 135 mg/dL 0 mg/dL - 200 mg/dL August 11, 2023 12:15:00 PM [facility] (TECH: MRB) 2085-9 Cholesterol in HDL [Mass/volume] in Serum or Plasma L 54 mg/dL 60 mg/dL August 11, 2023 12:15:00 PM [facility] (TECH: MRB) 09075-3 Cholesterol in LDL [Mass/volume] in Serum or Plasma by calculation L 51 mg/dL 100 mg/dL August 11, 2023 12:15:00 PM [facility] (TECH: MRB) 2095-8 Cholesterol in HDL/Cholesterol.total [Mass Ratio] in Serum or Plasma N 3 Ratio August 11, 2023 12:15:00 PM [facility] (TECH: MRB) LABORATORY NARRATIVE RESULTS Information is not available RADIOLOGY RESULTS Information is not available PATHOLOGY NARRATIVE RESULTS Information is not available MICROBIOLOGY RESULTS No Micro Labs/Results Exist for Patient BLOOD ADMIN RESULTS Information is not available MEDICATIONS HOME MEDICATIONS Status RXNORM NDC Medication Dose Route Frequency Dates Comments Reported By Updated By Drug Treatment Unknown DISCHARGE MEDICATIONS Status RXNORM NDC Medication Dose Route Frequency Dates Comments Physician Updated By No Discharge Medication Info rmation Available INPATIENT MEDICATIONS Status RXNORM NDC Medication Dose Route Frequency Rat e Quantity Dates Comments Physician Updated By No Inpatient Medication Info rmation Available SOCIAL HISTORY SOCIAL HISTORY SNOMED-CT Social History Element Description Effective Dates Offered Cessation Comment UpdatedBy [id number] Historical Tobacco smoking status Current Every Day Smoker [id number] on May 14, 2021 3:20:33 PM [facility] SOCIAL HISTORY - Gender Sex: Male SOCIAL HISTORY - Status : status i nformation is not available Intention in Next Year: intention information is not available SOCIAL HISTORY - Sexual Behavior Sexual Orientation [...] available. ENCOUNTERS ENCOUNTER INFORMATION Reason for Visit L35.8 Admission August 11, 2023 11:20:[address] [address] Discharge August 11, 2023 11:20:00 AM [facility] DISC HARGED TO HOME OR SELF CARE ENCOUNTER DIAGNOSES Notes information is not jorge ilable. Code System Diagnosis Onset Date Diagnosis information is not available. 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 [id number] on August 12, 2023 1:02:37 PM [facility] I25.10 ICD10 ATHEROSCLEROTIC HEART DISEASE OF [place] CORONARY ARTERY WITHOUT ANGINA PECTORIS [id number] on August 12, 2023 1:02:37 PM [facility] CARE TEAM Care Co Founder Role JENA BANEGAS Admitting JENA BANEGSA Primary Attending JENA BANEGAS Referring LUZMA ELLIOTT Primary Care CARE TEAM CARE absorption operator Role on Team Status Start Date End Date Update d By BASSAM Mcmullen APRN Referring normal August 11, 2023 4:00:00 AM [facility] August 11, 2023 4:00:00 AM [facility] [id number] on August 11, 2023 11:24:47 AM [facility] BASSAM Mcmullen SALES DEVELOPMENT SPECIALIST Attending normal August 11, 2023 4:00:00 AM [facility] August 11, 2023 4:00:00 AM [facility] [id number] on August 11, 2023 11:24:47 AM [facility] BASSAM Mcmullen SALES DEVELOPMENT SPECIALIST Admitting normal August 11, 2023 4:00:00 AM [facility] August 11, 2023 4:00:00 AM [facility] [id number] on August 11, 2023 11:24:47 AM [facility] LEXI SEGAL MD [facility] normal August 10, 4:00:00 AM [facility] August 11, 2023 4:00:00 AM [facility] [id number] on August 11, 2023 11:24:47 AM [facility]
--- OUTSIDE RECORDS SUMMARY | 2023-11-18 07:43 | XMS_ITS ---
Author Organization Unknown ALLERGIES AND ADVERSE REACTIONS No information ASSESSMENT No information CHIEF COMPLAINT No information MEDICATIONS No information OBJECTIVE DATA No information PHYSICAL EXAMINATION No information TREATMENT PLAN Planned Care Start Date Provider Encounter for Check-up [id number] [facility] PROBLEMS No information RESULTS No information REVIEW OF SYSTEMS No information SUBJECTIVE DATA No information VITAL SIGNS No information
--- OUTSIDE RECORDS SUMMARY | 2023-11-18 07:43 | XMS_ITS | Continuity of Care Document ---
Author Organization [facility] Phone Care Team Providers Care Ems Coordinator Name Role Phone JENA BANEGAS Admitting [phone] JENA BANEGAS Primary Attending JENA BANEGAS Unavailable [phone] LUZMA ELLIOTT Primary Care [phone] ALLERGIES AND ADVERSE REACTIONS ALLERGIES AND ADVERSE REACTIONS Code System Allergy Substance Adverse Reaction Date Reaction (Severity) Comment Status Reported By Updated By LATEX (Free Text Allergy) Rash (Severe) active [id number] on May 15, 2021 2:13:52 PM [facility] FAMILY HISTORY RELATION: Father Status: Cause of : Unknown Age at : Unknown SNOMED-CT Diagnosis Age At Onset [id number] Malignant tumor of colon RELATION: Mother Status: Cause of : Unknown Age at : Unknown SNOMED-CT Diagnosis Age At Onset [id number] Diabetes mellitus [id number] Cerebrovascular accident RESULTS Patient: CARITO Carroll Date of : January [birth year] LABORATORY RESULTS ORDER 200: CBC AUTO W DIFF ( LOINC: 46549-7) ORDER DATE: August 11, 2023 11:32:00 AM [facility] Specimen Source: Whole Blood Specimen Type: Whole blood s ample PERFORMING LAB: [address] [id number] Result Comment: Final Result Date: August 11, 2023 11:48:00 AM [facility] (TECH: MRB) LOINC TEST FLAG RESULT REFERENCE RANGE UPDA CARLOS MANUEL BY 6690-2 Leukocytes [#/volume] in Blood by Automated count N 11.2 10^3/uL 4.5 10^3/uL - 11.5 10^3/uL August 11, 2023 11:48:00 AM [facility] (TECH: MRB) 789-8 Erythrocytes [#/volume] in Blood by Automated count N 4.59 10^6/uL 4.25 10^6/uL - 5.57 10^6/uL August 11, 2023 11:48:00 AM [facility] (TECH: [employer]) 718-7 Hemoglobin [Mass/volume] in Blood N 15.3 g/dL 13.5 g/dL - 17.2 g/dL August 11, 2023 11:48:00 AM [facility] (TECH: MRB) 71336-8 Hematocrit [Volume Fraction] of Blood N 45.1 % 42.0 % - 52.0 % August 11, 2023 11:48:00 AM [facility] (TECH: [employer]) 787-2 Erythrocyte mean corpuscular volume [Entitic volume] by Automated count H 98.3 fl 80 fl - 95 fl August 11, 2023 11:48:00 AM [facility] (TECH: [employer]) 79257-3 Erythrocyte mean corpuscular hemoglobin [Entitic mass] in Blood from [place] by Automated count N 33.3 pg 27.0 pg - 34.0 pg August 11, 2023 11:48:00 AM [facility] (TECH: [employer]) 19505-4 Erythrocyte mean corpuscular hemoglobin concentration [Mass/volume] in Blood from [place]etus by Automated count N 33.9 g/dL 32.0 g/dL - 36.0 g/dL August 11, 2023 11:48:00 AM [facility] (TECH: MRB) 45582-7 Platelets [#/volume] in Blood N 184 10^3/uL 150 10^3/uL - 450 10^3/uL August 11, 2023 11:48:00 AM [facility] (TECH: MRB) 72748-7 Erythrocyte distribution width [Ratio] N 12.3 % 12.3 % - 15.1 % August 11, 2023 11:48:00 AM [facility] (TECH: MRB) 11375-8 Platelet mean volume [Entitic volume] in Blood by Automated count H 11.1 fl 7.4 fl - 10.4 fl August 11, 2023 11:48:00 AM [facility] (TECH: MRB) 69456-2 Granulocytes/100 leukocytes in Blood by Automated count [...] 11, 2023 11:48:00 AM [facility] (TECH: MRB) 48230-7 Immature granulocytes [#/volume] in Blood N 0.2 % 0.0 % - 0.8 % August 11, 2023 11:48:00 AM [facility] (TECH: MRB) 22157-5 Granulocytes [#/volume] in Blood by Automated count [...] 11, 2023 11:48:00 AM [facility] (TECH: MRB) 74494-3 Immature granulocytes [#/volume] in Blood N 0.02 10^3/uL August 11, 2023 11:48:00 AM [facility] (TECH: MRB) 61520-9 Manual differential performed [Presence] in Blood N NO August 11, 2023 11:48:00 AM [facility] (TECH: MRB) ORDER 300: BASIC METABOLIC P BEENA (LOINC: 94882-6) ORDER DATE: August 11, 2023 11:32:00 AM [facility] Specimen Source: Serum/Plasm a Specimen Type: Acellular blo od (serum or plasma) specimen PERFORMING LAB: [address] [id number] Result Comment: Final Result Date: August 11, [...] 11, 2023 12:15:00 PM [facility] (TECH: MRB) 84109-8 Anion gap 3 in Serum or Plasma [...] 21 Ratio August 11, 2023 12:15:00 PM [facility] (TECH: MRB) 80159-3 Glomerular filtration rate/1.73 sq M.predicted by Creatinine-based formula (MDRD) L 39 mL/min >60 August 11, 2023 12:15:00 PM [facility] (TECH: MRB) 62442-6 Calcium [Mass/volume] in Serum or Plasma N 9.5 mg/dL 8.5 mg/dL - 10.1 mg/dL August 11, 2023 12:15:00 PM [facility] (TECH: MRB) ORDER 400: LIPID PANEL (LOIN C: 31992-3) ORDER DATE: August 11, 2023 11:32:00 AM [facility] Specimen Source: Serum/Plasm a Specimen Type: Acellular blo od (serum or plasma) specimen PERFORMING LAB: [address] [id number] Result Comment: Final Result Date: August 11, 2023 12:15:00 PM [facility] (TECH: MRB) LOINC TEST FLAG RESULT [...] 11, 2023 12:15:00 PM [facility] (TECH: MRB) 07155-0 Cholesterol in LDL [Mass/volume] in Serum or [...] Description Effective Dates Offered Cessation Comment UpdatedBy [id number] Historical Tobacco smoking status Current Every Day Smoker [id number] on May 14, 2021 3:20:33 PM [facility] SOCIAL HISTORY - Gender Sex: Male [...] L35.8 Admission August 11, 2023 11:20:[address] [address] Discharge August 11, 2023 11:20:00 AM [facility] DISC HARGED TO HOME OR SELF CARE ENCOUNTER DIAGNOSES Notes information is not jorge ilable. Code System Diagnosis Onset Date Diagnosis information is not available. ABSTRACT DIAGNOSES Code System Diagnosis Updated By Abstract Diagnosis informati on is not available. CARE TEAM Care Ems Coordinator Role JENA BANEGAS Admitting JENA BANEGAS Primary Attending JENA BANEGAS Referring LUZMA ELLIOTT Primary Care CARE TEAM CARE licensed loan officer Role on Team Status Start Date End Date Update d By BASSAM Mcmullen APRN Referring normal August 11, 2023 4:00:00 AM [facility] August 11, 2023 11:20:00 AM [facility] [id number] on August 11, 2023 11:24:47 AM [facility] BASSAM Mcmullen RAIL SIGNAL WORKER Attending normal August 11, 2023 4:00:00 AM [facility] August 11, 2023 11:20:00 AM [facility] [id number] on August 11, 2023 11:24:47 AM [facility] BASSAM Mcmullen RAIL SIGNAL WORKER Admitting normal August 11, 2023 4:00:00 AM [facility] August 11, 2023 11:20:00 AM [facility] [id number] on August 11, 2023 11:24:47 AM [facility] LEXI SEGAL MD PCP normal August 10 4:00:00 AM [facility] August 11, 2023 11:20:00 AM [facility] [id number] on August 11, 2023 11:24:47 AM [facility]
--- OUTSIDE RECORDS SUMMARY | 2023-11-18 07:43 | XMS_ITS | Continuity of Care Document ---
Author Organization [facility] Phone Care Team Providers Care Tattoo Designer Name Role Phone JOSHUA MCDERMOTT Primary Attending LUZMA ELLIOTT Primary Care JOSHUA MCDERMOTT Unavailable JOSHUA MCDERMOTT Admitting ALLERGIES AND ADVERSE REACTIONS ALLERGIES AND ADVERSE REACTIONS Code System Allergy Substance Adverse Reaction Date Reaction (Severity) Comment Status Reported By Updated By LATEX (Free Text Allergy) Rash (Severe) active [id number] on May 15, 2021 2:13:52 PM [facility] FAMILY HISTORY RELATION: Father Status: Cause of : Unknown Age at : Unknown SNOMED-CT Diagnosis Age At Onset [id number] Malignant tumor of colon RELATION: Mother Status: Cause of : Unknown Age at : Unknown SNOMED-CT Diagnosis Age At Onset [id number] Diabetes mellitus [id number] Cerebrovascular accident RESULTS Patient: CARITO Carroll Date of : January [birth year] LABORATORY RESULTS ORDER 100: PROSTATE SPECIFIC AG PSA (LOINC: 2857-1) ORDER DATE: March 20, 2023 7:25:00 PM [facility] Specimen Source: Serum/Plasm a PERFORMING LAB: [address] [id number] Result Comment: Final Result Date: March 20, 2023 8:13:00 PM [facility] (TECH: MRB) LOINC TEST FLAG RESULT REFERENCE RANGE UPDA CARLOS MANUEL BY 2857-1 Prostate specific Ag [Mass/volume] in Serum or Plasma N <0.13 ng/mL 0.0 ng/mL - 4.0 ng/mL March 072022 8:13:00 PM [facility] (TECH: MRB) LABORATORY NARRATIVE RESULTS [...] Priority [place] [address] [facility] Collection method - Specimen ONE TIME 0 Routine March 20, 2023 7:25:00 PM [facility] BALDEMAR Lutz MD [id number] on March 20, 2023 7:25:00 PM [facility] SCHEDULED PROCEDURES Code System Description Status [...] Description Effective Dates Offered Cessation Comment UpdatedBy [id number] Historical Tobacco smoking status Current Every Day Smoker [id number] on May 14, 2021 3:20:33 PM [facility] SOCIAL HISTORY - Gender Sex: Male [...] C61 Admission March 20, 2023 7:10:[address] [address] Discharge March 20, 2023 7:10:00 PM [facility] DISCHARGED TO HOME OR SELF CARE ENCOUNTER DIAGNOSES Notes information is not jorge ilable. Code System Diagnosis Onset Date Diagnosis information is not available. ABSTRACT DIAGNOSES Code System Diagnosis Updated By C61 ICD10 MALIGNANT NEOPLASM OF PROSTA TE [id number] on March 21, 2023 4:04:28 PM [facility] C61 ICD10 MALIGNANT NEOPLASM OF PROSTA TE [id number] on March 21, 2023 4:04:28 PM [facility] CARE TEAM Care Tattoo Designer Role JOSHUA MCDERMOTT Primary Attending LUZMA ELLIOTT Primary Care JOSHUA MCDERMOTT Referring JOSHUA MCDERMOTT Admitting CARE TEAM CARE government affairs manager Role on Team Status Start Date End Date Update d By BALDEMAR Lutz MD Referring normal March 20, 2023 5:00:00 AM [facility] March 20, 2023 5:00:00 AM [facility] [id number] on March 20, 2023 7:13:36 PM [facility] BALDEMAR Lutz MD Attending normal March 20, 2023 5:00:00 AM [facility] March 20, 2023 5:00:00 AM [facility] [id number] on March 20, 2023 7:13:36 PM [facility] BALDEMAR Lutz MD Admitting normal March 20, 2023 5:00:00 AM [facility] March 20, 2023 5:00:00 AM [facility] [id number] on March 20, 2023 7:13:36 PM [facility] LEXI SEGAL MD PCP normal March 20, 2023 5:00:00 AM [facility] March 20, 2023 5:00:00 AM [facility] [id number] on March 20, 2023 7:13:36 PM [facility]
--- OUTSIDE RECORDS SUMMARY | 2023-11-18 07:43 | XMS_ITS | Continuity of Care Document ---
Author Organization [facility] Phone Care Team Providers Care Adjuster Piano Action Name Role Phone SOTO ACE Admitting LUZMA ELLIOTT Primary Care SOTO ACE Primary Attending SOTO ACE Unavailable ALLERGIES AND ADVERSE REACTIONS ALLERGIES AND ADVERSE REACTIONS Code System Allergy Substance Adverse Reaction Date Reaction (Severity) Comment Status Reported By Updated By LATEX (Free Text Allergy) Rash (Severe) active [id number] on May 15, 2021 2:13:[address] [facility] FAMILY HISTORY RELATION: Father Status: Cause of : Unknown Age at : Unknown SNOMED-CT Diagnosis Age At Onset [id number] Malignant tumor of colon RELATION: Mother Status: Cause of : Unknown Age at : Unknown SNOMED-CT Diagnosis Age At Onset [id number] Diabetes mellitus [id number] Cerebrovascular accident RESULTS Patient: CARITO Carroll Date of : January [birth year] LABORATORY RESULTS ORDER 400: PROTEIN/CREATININ E URINE (LOINC: 2890-2) ORDER DATE: November 18, 2022 11:24:[address] [facility] Specimen Source: URINE PERFORMING LAB: [address] [id number] Result Comment: Final Result Date: November 18, 2022 11:37:00 AM [facility] (TECH: [facility]) LOINC TEST FLAG RESULT REFERENCE RANGE UPDA CARLOS MANUEL BY 2888-6 Protein [Mass/volume] in Urine H 133 mg/dL 0.0 mg/dL - 15.0 mg/dL November 18, 2022 11:37:00 AM [facility] (TECH: [facility]) 2161-8 Creatinine [Mass/volume] in Urine H 346.6 mg/dL 30 mg/dL - 125 mg/dL November 18, 2022 11:37:00 AM [facility] (TECH: [employer]) 2890-2 Protein/Creatinine [Mass Ratio] in Urine H 384 Ratio 0 Ratio - 200 Ratio November 18, 2022 11:37:00 AM [facility] (TECH: [employer]) ORDER 500: UA WITH MICROSCOP IC (LOINC: 54673-4) ORDER DATE: November 18, 2022 11:24:00 AM [facility] Specimen Source: URINE PERFORMING LAB[facility] [id number] Result Comment: Final Result Date: November 18, 2022 11:37:00 AM [facility] (TECH: [employer]) LOINC TEST FLAG RESULT REFERENCE RANGE UPDA CARLOS MANUEL BY 5778-6 Color of Urine N yellow YELLOW Augus 2022 11:37:00 AM [facility] (TECH: [employer]) 5767-9 Appearance of Urine N clear CLEAR November 18, 2022 11:37:00 AM [facility] (TECH: [employer]) 5792-7 Glucose [Mass/volume ] in Urine by Test strip N NORM NORMAL November 11:37:00 AM [facility] (TECH: [employer]) 69123-0 Bilirubin.total [Mass/volume] in Urine by Automated test strip N NEGATIVE NEGATIVE November 052022 11:37:00 AM [facility] (TECH: [employer]) 5797-6 Ketones [Mass/volume ] in Urine by Test strip N 5 (TRACE) mg/dL NEGATIVE November 11:37:00 AM [facility] (TECH: [employer]) 2965-2 Specific gravity of Urine N 1.025 1.005 - 1.035 November 18, 2022 11:37:00 AM [facility] (TECH: [employer]) 95864-8 Erythrocytes [#/volu me] in Urine by Automated test strip N NEGATIVE NEGATIVE November 18, 2022 11:37:00 AM [facility] (TECH: [employer]) 28744-6 pH of Urine by Automated test strip N 5.00 5.0 - 7.5 November 18, 2022 11:37:00 AM [facility] (TECH: [employer]) 50744-7 Protein [Presence] i n Urine by Test strip N 100 (2+) mg/dL NEGATIVE November 18 023 11:37:00 AM [facility] (TECH: [employer]) 63915-3 Urobilinogen [Mass/volume] in Urine by Automated test strip N 1 mg/dL NORMAL November 052022 11:37:00 AM [facility] (TECH: [employer]) 30610-7 Nitrate [Presence] i n Urine N NEGATIVE NEGATIVE November 18, 2022 11:37:00 AM [facility] (TECH: [employer]) 69760-9 Leukocytes [#/volume ] in Urine by Test strip N TRACE (25) /mcL NEGATIVE November 11:37:00 AM [facility] (TECH: [employer]) 05331-3 Microscopic observat ion [Identifier] in Urine sediment by Light microscopy N NO November 18, 2022 11:37:00 AM [facility] (TECH: [employer]) 32157-7 Erythrocytes [#/area ] in Urine sediment by Microscopy high power field N NONE SEEN 0-3 November 18, 2022 11:37:00 AM [facility] (TECH: [employer]) 5821-4 Leukocytes [#/area] in Urine sediment by Microscopy high power field N 0-3 NONE SEEN November 18, 2022 11:37:00 AM [facility] (TECH: [employer]) 42125-4 Epithelial cells.squamous [#/area] in Urine sediment by Microscopy high power field N 5-10 NONE SEEN November 18, 2022 11:37:00 AM [facility] (TECH: [employer]) 5769-5 Bacteria [#/area] in Urine sediment by Microscopy high power field N TRACE NONE SEEN November 18, 2022 11:37:00 AM [facility] (TECH: [employer]) LABORATORY NARRATIVE RESULTS Information is not available [...] Priority [place] [address]-3 LOINC Collection method - Specimen ONE TIME 0 Routine November 18, 2022 11:24:0 0 AM [facility] MALKA LION MD [id number] on November 18, 2022 11:24:[address] [facility] 12252-3 LOINC Calcidiol+Jai ciferol [Mass/volume] in Serum or ONE TIME 0 Routine November 18, 2022 11:24:0 0 AM [facility] MALKA LION MD [id number] on November 18, 2022 11:24:[address] [facility] 14846-4 [facility] Renal function 2000 panel - Serum or Plasma ONE TIME 0 Routine November 18, 2022 11:24:[address] [facility] MALKA LION MD [id number] on November 18, 2022 11:24:[address] [facility] 2731-8 [facility] Parathyrin.in tact [Mass/volume] in Serum or Oscar ONE TIME 0 Routine November 18, 2022 11:24:[address] [facility] MALKA LION MD [id number] on November 18, 2022 11:24:[address] [facility] SCHEDULED PROCEDURES Code System Description Status [...] Description Effective Dates Offered Cessation Comment UpdatedBy [id number] Historical Tobacco smoking status Current Every Day Smoker [id number] on May 14, 2021 3:20:[address] [facility] SOCIAL HISTORY - Gender Sex: Male [...] 3 Admission November 18, 2022 11:14:[address] [address] Discharge November 18, 2022 11:14:[address] [facility] DISCHARGED TO HOME OR SELF CARE ENCOUNTER DIAGNOSES Notes information is not jorge ilable. Code System Diagnosis Onset Date Diagnosis information is not available. ABSTRACT DIAGNOSES Code System Diagnosis Updated By Abstract Diagnosis informati on is not available. CARE TEAM Care Adjuster Piano Action Role SOTO ACE Admitting LUZMA ELLIOTT Primary Care SOTO ACE Primary Attending SOTO ACE Referring CARE TEAM CARE cigarette machine operator Role on Team Status Start Date End Date Update d By LEXI SEGAL MD PCP normal November 18, 2022 4:00:[address] [facility] November 18, 2022 11:14:[address] [facility] [id number] on November 18, 2022 11:17:[address] [facility] MALKA ROMAN Referring normal November 18, 2022 4:00:[address] [facility] November 18, 2022 11:14:[address] [facility] [id number] on November 18, 2022 11:17:[address] [facility] MALKA ROMAN Attending normal November 18, 2022 4:00:[address] [facility] November 18, 2022 11:14:[address] [facility] [id number] on November 18, 2022 11:17:[address] [facility] MALKA ROMAN Admitting normal November 18, 2022 4:00:[address] [facility] November 18, 2022 11:14:[address] [facility] [id number] on November 18, 2022 11:17:[address] [facility]
[2023-11-18 08:05] LABS: Hemoglobin A1C 6.9 % (4.0-6.0)
--- NOTE | 2023-11-18 10:49 | EXP.CARD.CON ---
History of Present Illness History of Present Illness Consult date: 11/18/23 Requesting physician: Parish Bah Consult reason: atrial fibrillation Chief complaint: chest pain, a. fibrillation Additional Medical History:: 1. Multiple abdominal surgeries due to trauma and hernia repairs 2. Tobacco use 3. Hypertension 4. Hyperlipidemia LDL 42.5 on 11/18/2023 5. CKD, stage III with creatinine 1.6-1.8 with GFR 37-42 6. Diabetes mellitus type 2 Hemoglobin A1c 6.9 on 11/18/2023 7. New onset atrial fibrillation, 11/17/2023 Thyroid functions normal 8. [facility] CPAP use 9. History of GERD 10. History of prostate cancer History of present illness: This is a 73-year-old male with a PMHx of hypertension, hyperlipidemia, type 2 diabetes, GERD, prostate cancer presenting to the emergency department for evaluation with concern for chest pain. Patient reports that around 1 to 2 PM, he started spearing seeing pressure in the center of his chest. He denies experiencing any like this in the past. He received aspirin and nitroglycerin with EMS, which did help relieve his pain. He denies any other associated symptoms, such as recent fevers, chills, cough, congestion, abdominal pain, nausea, vomiting, changes in bowel movements, or other concerns. He reports compliance with his home medications. He arrives by EMS who noted that he was tachycardic en route and initially had several PVCs, but they state that he did not have any after administration of the aspirin and nitroglycerin. Admitted for further management. The above per Hunter Levine APRN for the hospitalist service Patient confirms onset of discomfort yesterday unlike anything he has had before. He was admitted for atrial fibrillation/flutter with improved rate control and IV diltiazem. Patient denies any prior knowledge of A-fib/flutter in the past. He maintains compliance with his sleep apnea treatment. He has been a diabetic for many years as well as being treated for hypertension and hyperlipidemia. He reportedly has mixed diagnosis of cirrhosis of the liver recently and is going to follow-up with GI in the future. Cardiology consulted for evaluation and recommendations. Echocardiogram today shows EF of 60% with no significant valve disease. Thyroid functions this admission are normal. Troponins this admission are normal He is noted to have severe coronary artery calcifications on CT of the chest. Patient does have intermittent gripping type chest pain that last seconds on the left side without an exertional component. [facility] Disclaimer: The information contained in this section may have been updated after the patient was seen, as this information can be updated by other users. Medical History (Updated 11/18/23 @ 11:22 by JEANNE Samaniego) MARY (acute kidney injury) CKD (chronic kidney disease) Diabetes 1.5, managed as type 2 Acute hyperkalemia Fatty infiltration of liver Elbow pain History of rectal fissure Cirrhosis of liver Abdominal pain Hepatic cirrhosis Abdominal pain Pneumonia ETD (eustachian tube dysfunction) Hypertrophy of both inferior nasal turbinates Unilateral hearing loss Nasal septal deviation Rib pain Skin infection Cough Smoking Tobacco abuse counseling Sinusitis Anal fissure History of hemorrhoids Renal insufficiency Prostate cancer GERD (gastroesophageal reflux disease) Torn Achilles tendon COPD (chronic obstructive pulmonary disease) Bronchitis Hyperlipidemia associated with type 2 diabetes mellitus Diabetes type 2, controlled Hypertension associated with diabetes Surgical History History of prostate surgery Hx of hemorrhoidectomy History of hand surgery History of hernia repair History of colonoscopy History of tonsillectomy Family History Father Cancer Heart attack Stroke Mother Heart attack Stroke Social History (Updated 11/17/23 @ 22:09 by Mari aC Worley RN) Smoking Status: Current every day smoker tobacco type: cigarettes packs per day: 1 alcohol intake: never substance use type: denies use current occupational status: retired Travel in the last 8 weeks: None household members: spouse housing: house marital status: education level: vocational service: No caffeine: Yes special roxanne needs: No do you feel safe at home: Yes victim of physical abuse: No victim of emotional abuse: No victim of sexual abuse: No would you like helpful sources: No Review of Systems Review of Systems Review of systems:: pertinent systems reviewed and negative unless documented below *Cardiovascular Cardiovascular: Reports chest pain, Reports dyspnea on exertion and Reports palpitations *Respiratory Respiratory: Denies cough and Reports dyspnea on exertion Endocrine Endocrine: Reports palpitations Exam Data for Last 24 hours Vital signs and Labs for Last 24 Hours: Temp Pulse Resp BP Pulse Ox O2 Del Method O2 Flow Rate 97.5 F L 110 H 14 117/79 2 L Room Air 3 11/18/23 08:00 11/18/23 08:00 11/18/23 06:00 11/18/23 06:00 11/18/23 08:00 11/18/23 09:00 11/18/23 07:00 Laboratory Results - last 24 hr 11/17/23 18:35: Hemoglobin A1c 5.6 11/17/23 18:37: WBC 12.3 H, RBC 4.52 L, Hgb 15.3, Hct 49.0, MCV 108.4 H, MCH 33.9 H, MCHC 31.3 L, RDW 13.7, Plt Count 203, MPV 9.3, Neut % (Auto) 62.8, Lymph % (Auto) 25.6, [place] % (Auto) 8.6, Eos % (Auto) 2.3, Baso % (Auto) 0.8, Neut # (Auto) 7.7, Lymph # (Auto) 3.1, [place] # (Auto) 1.1 H, Eos # (Auto) 0.3, Baso # (Auto) 0.1, PT 10.2, INR 0.90, APTT 26.3, Sodium 140, Potassium 4.4, Chloride 108 H, Carbon Dioxide 24, Anion Gap 12.4, BUN 30 H, Creatinine 1.80 H, Estimated Creat Clear 50, Estimated GFR 37 L, Est GFR ( Amer) 45 L, Glucose 129 H, Calcium 9.5, Magnesium 2.1, Total Bilirubin 0.9, AST 34, ALT 26, Alkaline Phosphatase 66, Troponin I 0.03, NT-Pro-B Natriuret Pep 396 H, Total Protein 7.2, Albumin 4.3, Globulin 2.9, Albumin/Globulin Ratio 1.5, Lipase 402 H, TSH 2.29, Thyroxine (T4) 7.9 11/17/23 22:10: Troponin I 0.03 11/17/23 22:25: POC Glucose 77 11/18/23 01:20: Troponin I 0.03 11/18/23 05:37: WBC 13.1 H, RBC 4.27 L, Hgb 15.1, Hct 46.0, MCV 107.8 H, MCH 35.3 H, MCHC 32.8, RDW 13.9, Plt Count 185, MPV 9.7, Neut % (Auto) 66.1, Lymph % (Auto) 23.4, [place] % (Auto) 8.0, Eos % (Auto) 1.9, Baso % (Auto) 0.6, Neut # (Auto) 8.7 H, Lymph # (Auto) 3.1, [place] # (Auto) 1.1 H, Eos # (Auto) 0.2, Baso # (Auto) 0.1, Sodium 138, Potassium 4.7, Chloride 111 H, Carbon Dioxide 25, Anion Gap 6.7, BUN 25 H, Creatinine 1.70 H, Estimated Creat Clear 54, Estimated GFR 40 L, Est GFR ( Amer) 48 L, Glucose 104 H, Hemoglobin A1c 6.9 H, Calcium 8.8, Total Bilirubin 1.1, AST 37, ALT 25, Alkaline Phosphatase 73, Total Protein 6.8, Albumin 4.1, Globulin 2.7, Albumin/Globulin Ratio 1.5, Triglycerides 192 H, Cholesterol 115 L, LDL Cholesterol Direct 42.50 L, VLDL Cholesterol 38, HDL Cholesterol 42, Cholesterol/HDL Ratio 2.7 I & O for Last 24 hours: Intake & Output 11/15/23 11/16/23 11/17/23 11/18/23 11:59 11:59 11:59 11:59 Intake Total 674.167 / 674.167 Output Total 0 / 0 Balance 674.167 / 674.167 Weight 221 lb 6.4 oz Constitutional Constitutional: no acute distress *Routine Respiratory Exam Respiratory: Present CTA bilaterally *Routine Cardiovascular Exam Cardiovascular: Present tachycardia and irregular rhythm *Routine Extremities Exam Extremities: Absent edema *Routine Neurological Exam Neurological: Present alert and oriented X3 Meds Home Medications and Allergies Home Medications ?Medication ?Instructions ?Recorded ?Confirmed ?Type aspirin 325 mg tablet 325 mg PO DAILY 08/13/22 11/17/23 History ascorbic acid (vitamin C) 1,000 mg 1,000 mg PO BID 03/27/23 11/17/23 History capsule hydrochlorothiazide 25 mg tablet 25 mg PO DAILY 30 days #30 tabs 09/19/23 11/17/23 Rx semaglutide 7 mg tablet (Rybelsus) 7 mg PO DAILY #30 tabs 09/19/23 11/17/23 Rx amlodipine 5 mg tablet 5 mg PO DAILY 11/17/23 11/17/23 History benazepril 40 mg tablet (Lotensin) 40 mg PO DAILY 11/18/23 11/18/23 History clonidine HCl 0.2 mg tablet 0.2 mg PO BID 11/18/23 11/17/23 History glipizide 10 mg tablet 10 mg PO BID 11/18/23 11/17/23 History metoprolol succinate 200 mg 200 mg PO DAILY 11/18/23 11/18/23 History tablet,extended release 24 hr pantoprazole 40 mg tablet,delayed 40 mg PO BID 11/18/23 11/17/23 History release rosuvastatin 40 mg tablet 40 mg PO DAILY 11/18/23 11/17/23 History sitagliptin phosphate 50 1 tab PO BID 11/18/23 11/17/23 History mg-metformin 1,000 mg tablet (Janumet) New Prescriptions to Start Prescriptions: Allergies Allergy/AdvReac Type Severity Reaction Status Date / Time No Known Allergies Allergy Verified 10/27/23 11:03 Assessment and Plan *Assessment and plan (1) New onset atrial flutter: Status: Acute Category: Medical Code(s): I48.92 - Unspecified atrial flutter (2) Type 2 diabetes mellitus: Status: Acute Qualifiers: Diabetes mellitus complication detail: with other circulatory complications Diabetes mellitus complication status: with circulatory complication Diabetes mellitus intermediate teacher insulin use: with [facility] use Qualified Code(s): E11.59 - Type 2 diabetes mellitus with other circulatory complications; Z79.4 - assisted (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 insulin Category: Medical Code(s): E11.9 - Type 2 diabetes mellitus without complications (3) Hypertension: Status: Acute Qualifiers: Hypertension type: primary hypertension Qualified Code(s): I10 - Essential (primary) hypertension Category: Medical Code(s): I10 - Essential (primary) hypertension (4) Chest pain: Status: Acute Qualifiers: Chest pain type: other chest pain Qualified Code(s): R07.89 - Other chest pain Category: Medical Code(s): R07.9 - Chest pain, unspecified (5) CKD (chronic kidney disease): Status: Acute Qualifiers: Chronic kidney disease stage: stage 3 (moderate) Chronic kidney disease stage 3 subtype: stage 3b (GFR 30-44) Qualified Code(s): N18.32 - Chronic kidney disease, stage 3b Category: Medical Code(s): N18.9 - Chronic kidney disease, unspecified (6) Pulmonary fibrosis: Status: Acute Category: Medical Code(s): J84.10 - Pulmonary fibrosis, unspecified Plan 1. New onset atrial flutter with RVR -Thyroids normal -Troponins normal -Echocardiogram shows EF 60% without significant valve disease -On IV diltiazem, will switch to oral -Start oral anticoagulation therapy for [id number] score of 4 (hypertension, diabetes, vascular disease and age) 2. 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 CKD, stage III 4. Hypertension, controlled 5. Diabetes mellitus type 2, defer to hospitalist -Hemoglobin A1c 6.9 this admission 6. UIP pattern pulmonary fibrosis, slightly worsened compared to previous scans in 2019 7. Cirrhosis of the liver -Noted on abdominal CT this admission Switch IV diltiazem to oral 240 mg daily Start Eliquis 5 mg twice daily Discontinue amlodipine Reduce aspirin to 81 mg daily Hold clonidine and benazepril for now and restart if needed Possibly home later today if heart rate and blood pressure remain controlled.
[2023-11-18] MEDS: humaLOG 100 UNITS/ML 10ML VIAL (SSI) SQ ×3 (11:13→21:14)
[2023-11-18 11:41] LABS: POC Glucose,Bedside 183 (70-110)
[2023-11-18] MEDS: dilTIAZem ER 240MG CAPSULE 240 MG PO (12:15)
[2023-11-18] MEDS: METOPROLOL SUCCINATE XL 100MG TABLET 200 MG PO (12:15)
[2023-11-18] MEDS: APIXABAN 5MG TABLET 5 MG PO ×2 (12:15→21:13)
--- NOTE | 2023-11-18 13:06 | EXP.ACUTE.PN ---
Subjective *Date: 11/18/23 *Time: 19:22 Interval history: Patient's rate controlled on morning rounds in the 70s and 80s. Denies any chest pain. No shortness of breath. Stable on room air. Weaned to room air after requiring oxygen at night due to sleep apnea. No fevers. Medical Exam Vital signs and Labs for Last 24 Hours: Vital Signs Temp Pulse Pulse Resp BP BP Pulse Ox 11/18/23 12:00 135 H 18 131/69 95 11/18/23 11:00 11/18/23 10:00 76 22 130/62 94 L 11/18/23 09:00 11/18/23 08:00 93 H 20 127/87 95 11/18/23 08:00 110 H 11/18/23 08:00 2 L 11/18/23 08:00 97.5 F L 11/18/23 07:00 11/18/23 06:00 125 H 14 117/79 97 11/18/23 04:58 11/18/23 04:00 88 11/18/23 04:00 97.6 F 88 21 108/64 L 98 11/18/23 04:00 70 11/18/23 03:00 11/18/23 02:00 70 25 H 93/56 L 98 11/18/23 01:00 11/18/23 00:00 65 11/18/23 00:00 123 H 16 103/58 L 96 11/17/23 23:00 11/17/23 22:00 122 H 11/17/23 22:00 98.1 F 124 H 22 131/81 97 11/17/23 21:56 122 H 16 116/82 97 11/17/23 21:37 98.0 F 128 H 19 116/74 11/17/23 21:30 128 H 22 116/74 94 L 11/17/23 21:20 127 H 20 123/75 89 L 11/17/23 21:10 126 H 18 126/79 90 L 11/17/23 21:01 125 H 15 123/75 97 11/17/23 21:00 124 H 15 110/79 92 L 11/17/23 20:50 125 H 16 121/81 94 L 11/17/23 20:40 127 H 13 128/83 97 11/17/23 20:31 17 133/73 11/17/23 20:20 131 H 20 112/74 94 L 11/17/23 20:10 129 H 16 118/74 95 11/17/23 20:09 127 H 19 124/79 94 L 11/17/23 20:07 129 H 18 126/82 95 11/17/23 20:04 126 H 14 100/78 L 95 11/17/23 20:00 129 H 15 114/79 95 11/17/23 19:49 127 H 15 121/78 95 11/17/23 19:01 131 H 18 97/61 L 96 11/17/23 18:45 130 H 11/17/23 18:38 98.0 F 130 H 19 114/88 98 O2 Del Method O2 Flow Rate 11/18/23 12:00 Nasal Cannula 3 11/18/23 11:00 Nasal Cannula 3 11/18/23 10:00 Nasal Cannula 11/18/23 09:00 Room Air 11/18/23 08:00 Nasal Cannula 3 11/18/23 08:00 11/18/23 08:00 Nasal Cannula 11/18/23 08:00 11/18/23 07:00 Nasal Cannula 3 11/18/23 06:00 Nasal Cannula 3 11/18/23 04:58 Nasal Cannula 3 11/18/23 04:00 Nasal Cannula 3 11/18/23 04:00 Nasal Cannula 3 11/18/23 04:00 11/18/23 03:00 Nasal Cannula 3 11/18/23 02:00 Nasal Cannula 3 11/18/23 01:00 Nasal Cannula 3 11/18/23 00:00 11/18/23 00:00 Nasal Cannula 3 11/17/23 23:00 Nasal Cannula 2 11/17/23 22:00 Nasal Cannula 2 11/17/23 22:00 Nasal Cannula 2 11/17/23 21:56 Nasal Cannula 2 11/17/23 21:37 Nasal Cannula 2 11/17/23 21:30 Nasal Cannula 2 11/17/23 21:20 11/17/23 21:10 11/17/23 21:01 11/17/23 21:00 11/17/23 20:50 11/17/23 20:40 11/17/23 20:31 11/17/23 20:20 11/17/23 20:10 11/17/23 20:09 11/17/23 20:07 11/17/23 20:04 11/17/23 20:00 11/17/23 19:49 11/17/23 19:01 Room Air 11/17/23 18:45 11/17/23 18:38 Room Air Intake and Output 11/17/23 11/18/23 11/18/23 23:59 07:59 15:59 Intake Total 4.833 / 4.833 92.417 / 684.834 592.417 / 684.834 Output Total 0 / 0 0 / 0 Balance 4.833 / 4.833 92.417 / 684.834 592.417 / 684.834 Intake: Intake, Oral Amount 520 / 520 Intake, Total IV Amount 4.833 / 4.833 92.417 / 164.834 72.417 / 164.834 Output: Output, Urine Amount 0 / 0 0 / 0 Other: Number of Voids 0 Number of Unmeasured Voids 1 Number of Bowel Movements 1 Weight 100.425 kg 100.425 kg Patient Weight 11/18/23 23:59 Weight 100.425 kg Laboratory Results - last 24 hr 11/17/23 18:35: Hemoglobin A1c 5.6 11/17/23 18:37: WBC 12.3 H, RBC 4.52 L, Hgb 15.3, Hct 49.0, MCV 108.4 H, MCH 33.9 H, MCHC 31.3 L, RDW 13.7, Plt Count 203, MPV 9.3, Neut % (Auto) 62.8, Lymph % (Auto) 25.6, [facility] % (Auto) 8.6, Eos % (Auto) 2.3, Baso % (Auto) 0.8, Neut # (Auto) 7.7, Lymph # (Auto) 3.1, [facility] # (Auto) 1.1 H, Eos # (Auto) 0.3, Baso # (Auto) 0.1, PT 10.2, INR 0.90, APTT 26.3, Sodium 140, Potassium 4.4, Chloride 108 H, Carbon Dioxide 24, Anion Gap 12.4, BUN 30 H, Creatinine 1.80 H, Estimated Creat Clear 50, Estimated GFR 37 L, Est GFR ( Amer) 45 L, Glucose 129 H, Calcium 9.5, Magnesium 2.1, Total Bilirubin 0.9, AST 34, ALT 26, Alkaline Phosphatase 66, Troponin I 0.03, NT-Pro-B Natriuret Pep 396 H, Total Protein 7.2, Albumin 4.3, Globulin 2.9, Albumin/Globulin Ratio 1.5, Lipase 402 H, TSH 2.29, Thyroxine (T4) 7.9 11/17/23 22:10: Troponin I 0.03 11/17/23 22:25: POC Glucose 77 11/18/23 01:20: Troponin I 0.03 11/18/23 05:37: WBC 13.1 H, RBC 4.27 L, Hgb 15.1, Hct 46.0, MCV 107.8 H, MCH 35.3 H, MCHC 32.8, RDW 13.9, Plt Count 185, MPV 9.7, Neut % (Auto) 66.1, Lymph % (Auto) 23.4, [facility] % (Auto) 8.0, Eos % (Auto) 1.9, Baso % (Auto) 0.6, Neut # (Auto) 8.7 H, Lymph # (Auto) 3.1, [facility] # (Auto) 1.1 H, Eos # (Auto) 0.2, Baso # (Auto) 0.1, Sodium 138, Potassium 4.7, Chloride 111 H, Carbon Dioxide 25, Anion Gap 6.7, BUN 25 H, Creatinine 1.70 H, Estimated Creat Clear 54, Estimated GFR 40 L, Est GFR ( Amer) 48 L, Glucose 104 H, Hemoglobin A1c 6.9 H, Calcium 8.8, Total Bilirubin 1.1, AST 37, ALT 25, Alkaline Phosphatase 73, Total Protein 6.8, Albumin 4.1, Globulin 2.7, Albumin/Globulin Ratio 1.5, Triglycerides 192 H, Cholesterol 115 L, LDL Cholesterol Direct 42.50 L, VLDL Cholesterol 38, HDL Cholesterol 42, Cholesterol/HDL Ratio 2.7 11/18/23 11:07: POC Glucose 183 H I & O for Labs for Last 24 Hours: Intake & Output 11/15/23 11/16/23 11/17/23 11/18/23 23:59 23:59 23:59 23:59 Intake Total 4.833 / 4.833 684.834 / 684.834 Output Total 0 / 0 Balance 4.833 / 4.833 684.834 / 684.834 Weight 100.425 kg 100.425 kg Constitutional: Present no acute distress, obese and chronically ill appearing Head: Present atraumatic and normocephalic Respiratory: Present normal respiratory effort; Absent rhonchi, wheezes or crackles Cardiac: Present Irregularly Regular GI: Present soft and normal bowel sounds; Absent distention or tenderness Extremities: Present normal inspection and full ROM Skin: Present intact; Absent erythema Neuro: Present Grossly Intact, alert, awake, oriented x 3 and moves all extremities Assessment and Plan *Assessment and plan (1) New onset atrial flutter: Status: Acute Category: Medical Code(s): I48.92 - Unspecified atrial flutter (2) CKD (chronic kidney disease): Status: Acute Qualifiers: Chronic kidney disease stage: stage 3 (moderate) Chronic kidney disease stage 3 subtype: stage 3b (GFR 30-44) Qualified Code(s): N18.32 - Chronic kidney disease, stage 3b Category: Medical Code(s): N18.9 - Chronic kidney disease, unspecified (3) Hepatic cirrhosis: Status: Acute Qualifiers: Ascites presence: without ascites Hepatic cirrhosis type: unspecified hepatic cirrhosis Qualified Code(s): K74.60 - Unspecified cirrhosis of liver Category: Medical Code(s): K74.60 - Unspecified cirrhosis of liver (4) Hypertension: Status: Acute Qualifiers: Hypertension type: primary hypertension Qualified Code(s): I10 - Essential (primary) hypertension Category: Medical Code(s): I10 - Essential (primary) hypertension (5) Type 2 diabetes mellitus: Status: Acute Qualifiers: Diabetes mellitus complication detail: with other circulatory complications Diabetes mellitus complication status: with circulatory complication Diabetes mellitus longitudinal float operator insulin use: with detention use Qualified Code(s): E11.59 - Type 2 diabetes mellitus with other circulatory complications; Z79.4 - [facility] (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 insulin Category: Medical Code(s): E11.9 - Type 2 diabetes mellitus without complications Plan 73-year-old male with a PMHx of hypertension, hyperlipidemia, type 2 diabetes, GERD, prostate cancer presenting to the emergency department for evaluation with concern for chest pain. On route he received aspirin and nitroglycerin by EMS. Fluid resuscitation with a liter bolus was given as initial work up. CT scan noted no obvious large PE and no obvious aortic pathology. Please see their read for final interpretation. Labs were obtained that demonstrated negative troponin. Patient had very mild leukocytosis. BNP is very mildly elevated. Creatinine is around the patient's baseline. He also has a mildly elevated lipase. He does not complain of any abdominal pain. findings discussed with ED. Agreed for inapatient monitoring. Improved rate control on morning rounds. Transitioning to oral regimen. Cardiology assisting with care. Problems addressed as follows: New onset atrial futtler: Hypertension, controlled - Discussed case with cardiology, given improvement in rate control on Dilt drip, will transition to oral diltiazem 240 mg daily. -Echo pending, preliminary read with EF 60% -Thyroid studies normal, troponin normal thyroids normal -Start oral anticoagulation therapy for [id number] score of 4 (hypertension, diabetes, vascular disease and age); Eliquis 5 mg twice daily -Discontinue amlodipine and hold home clonidine and benazepril -Continue aspirin 81 mg daily Cirrhosis of the liver: Noted on abdominal CT this admission, appears compensated, platelets 187. CKD 3: At baseline, monitor closely with repeat CMP in the morning. BUN 25, creatinine 1.7 Diabetes: Controlled with A1c 6.9. Continue insulin with sliding scale and fingersticks ACHS Eliquis 5 mg twice daily Full code Diabetic diet protonix for GI bleed ppx
[2023-11-18] MEDS: dilTIAZem 25MG/5ML VIAL 10 MG IV ×2 (14:43→23:21)
[2023-11-18] MEDS: ACETAMINOPHEN 325MG TAB 650 MG PO ×2 (14:44→22:09)
[2023-11-18] MEDS: METOPROLOL TARTRATE 5MG/5ML VIAL 5 MG IV ×4 (15:55→22:45)
[2023-11-18] MEDS: METOPROLOL TARTRATE 50MG TABLET 50 MG PO (16:19)
--- NOTE | 2023-11-18 17:40 | PC.NURSE ---
pt is alert and oriented x4. he is currently on RA and is 96%. pt has been in A. Flutter throughout shift. HR is currently 130s, treated per MAR, MD aware. he has ambulated to the bathroom with stand by assist and tolerated well. pt c/o of a headache earlier in shift and was treated per MAR, desired relief achieved. pt states when his HR goes from 130s to 90s his head starts to hurt. MD notified. no further requests at this time call light within reach.
[2023-11-18 18:25] LABS: POC Glucose,Bedside 169 (70-110)
[2023-11-18 21:00] LABS: POC Glucose,Bedside 164 (70-110)
[2023-11-18] MEDS: ATORVASTATIN 40MG TABLET 80 MG PO (21:14)
[2023-11-18] MEDS: ASCORBIC ACID 500MG TAB 1000 MG PO (21:14)
[2023-11-18] MEDS: PANTOPRAZOLE 40MG TABLET 40 MG PO (21:14)
--- NOTE | 2023-11-18 22:50 | PC.NURSE ---
patient is maintaining HR mid to high 130's with a headache and flushed face - while A. Flutter w/ PVC's. patient has received lopressor 5mg x3 with no improvement in HR.
--- NOTE | 2023-11-18 23:20 | CA_ITS ---
APPROVED REPORT EXAM: Comprehensive 2D, Doppler, and color-flow Echocardiogram Executive Associate: Zarina Shore CRT Ht: 6 ft 0 in Wt: 221lbs BSA: 2.22 BP: 97/61 mmHg Indications: Chest Pain, COPD, Diabetes, Hyperlipidemia, Hypertension/HDD, prostate CA, CKD, MARY, cirrhosis Chest Pain during exam 2D Dimensions LA Volume 25.60 mL LA Volume Index 11.20 mL/m2 (M/F) 16-34 M-Mode Dimensions RVDd 2.73 cm (0.9-2.6) LA Diam 3.16 cm (1.9-4.0) LVDd 4.10 cm (3.5-5.7) LVDs 2.48 cm (3.5-5.7) IVSd 1.96 cm (0.6-1.1) PWd 1.15 cm (0.6-1.1) EF (Teich) 70.50% FS 39.50% EDV (Teich) 74.20 mL TAPSE 1.23 (<1.7) ESV (Teich) 21.90 mL LV Diastology E Decel Time 63 (160-240 msec) E/A Ratio 1.90 MED A' 11.30 cm/s LAT A' 6.00 cm/s Aortic Valve AO Peak GR. 3.70 mmHg Mitral Valve MV E Max Panfilo. 56.0 (40-130 cm/s) MV A Velocity 30.0 (40-130 cm/s) E/A Ratio 1.90 MV PHT 19.0 ms Tricuspid Valve TR P. Velocity 162.00 cm/s RAP Estimate 10.00 mmHg RVSP 20.50 mmHg Left Ventricle The left ventricle is normal size. The left ventricular systolic function is normal. The left ventricular ejection fraction is within the normal range. There is increased LV wall thickness. There is normal LV segmental wall motion. The left ventricular diastolic function is normal. LVEF is 60%. Right Ventricle The right ventricle is normal size. The right ventricular systolic function is normal. Atria Left atrium is mildly dilated. Right atrium is mildly dilated. There is no Doppler evidence of interatrial shunt. Aortic Valve The aortic valve is mildly thickened. There is no aortic valvular stenosis. No aortic regurgitation is present. Mitral Valve The mitral valve is normal in structure. No evidence of mitral valve stenosis. There is no mitral valve regurgitation noted. Tricuspid Valve The tricuspid valve leaflets are thin and pliable. Trace tricuspid regurgitation. There is insufficient TR jet to estimate RVSP. Pulmonic Valve The pulmonary valve is normal in structure. Trace pulmonic regurgitation. Great Vessels The aortic root is normal in size. The ascending aorta is not well visualized. IVC is normal in size and collapses >50% with inspiration. Pericardium There is no pericardial effusion. Other Information Study Quality: Fair Conclusion Normal biventricular systolic function. Mild biatrial dilation. No significant valvular stenosis or regurgitation. Electronically signed by : Gayatri Hale MD 11/18/2023 09:03:59
--- NOTE | 2023-11-18 23:25 | PC.NURSE ---
Addendum entered by Amy Rich RN 11/18/23 23:29: Per Hospitalist, contact if HR is > 140 Original Note: 10mg dilt IVP - no improvement to HR, remains 130's.
[2023-11-19] VITALS: BP 122/78; PULSE 114; PULSE 133; RESP 17; TEMP 37.1; O2SAT 94
--- NOTE | 2023-11-19 00:15 | PC.NURSE ---
nurse is aware of high pulse rate
--- NOTE | 2023-11-19 00:43 | PC.NURSE ---
O2 sats 85's-89's and apneic episodes. Improvement noted >90% with 2L NC.
--- NOTE | 2023-11-19 01:00 | PC.NURSE ---
patient has converted to NSR maintaining 60's-70's.
[2023-11-19] MEDS: ACETAMINOPHEN 325MG TAB 650 MG PO (01:43)
[2023-11-19 03:37] VITALS: BP 110/71; PULSE 71; RESP 20; TEMP 36.5; O2SAT 94; BMI 29.9
[2023-11-19 04:00] VITALS: PULSE 62
[2023-11-19 06:01] LABS: POC Glucose,Bedside 139 (70-110)
[2023-11-19 06:55] LABS: Basophils # 0.1 K/mm3 (0-0.2); Basophils % 0.6 % (0.1-2.0); Eosinophils # 0.3 K/mm3 (0.0-0.4); Eosinophils % 2.7 % (0.1-12.0); Hematocrit 47.2 % (42.0-52.0); Hemoglobin 14.8 g/dL (14.1-18.0); Lymphocytes # 2.4 K/mm3 (0.7-4.5); Lymphocytes % 21.5 % (10-50); Mean Corpuscular HGB Conc 31.3 g/dL (31.8-35.4); Mean Corpuscular Hemoglobin 33.8 pg (27.0-31.2); Mean Platelet Volume 10.1 fl (7.4-10.4); Monocytes # 1.1 K/mm3 (0.1-1.0); Monocytes % 9.6 % (1.7-9.3); Neutrophils # 7.3 K/mm3 (1.8-7.8); Neutrophils % 65.6 % (37.0-80.0); Platelet Count 201 K/mm3 (142-424); Red Blood Count 4.37 M/mm3 (4.60-6.20); Red Cell Distribution Width 13.6 % (11.5-17.5); White Blood Count 11.1 K/mm3 (4.8-10.8)
[2023-11-19 07:23] LABS: Chloride 108 mmol/L (98-107); Sodium 140 mmol/L (136-145)
[2023-11-19 07:24] LABS: Potassium 4.1 mmoL/L (3.5-5.1)
[2023-11-19 07:26] LABS: Alanine Aminotransferase 20 U/L (12-78); Albumin/Globulin Ratio 1.5 (1.1-1.8); Alkaline Phosphatase 73 U/L (38-126); Anion Gap 8.1 mEq/L (5-15); Aspartate Amino Transferase 28 U/L (17-59); Bilirubin,Total 0.9 mg/dl (0.2-1.3); Blood Urea Nitrogen 22 mg/dl (9-20); Calcium 8.6 mg/dl (8.4-10.2); Carbon Dioxide 28 mmol/L (22.0-30.0); Creatinine Clearance Estimated 61 mL/min (50-200); Estimated Glomerular Filt Rate 46 ml/min (>60); GFR (African American) 55 ML/MIN (>60); Globulin 2.6 g/dL (1.3-3.2); Glucose 141 mg/dl (74-100); Total Protein,Serum 6.6 g/dl (6.3-8.2)
[2023-11-19 07:27] LABS: Magnesium 2.1 mg/dl (1.6-2.3)
[2023-11-19 07:45] VITALS: BP 138/77; PULSE 72; RESP 20; TEMP 36.4; O2SAT 96
[2023-11-19 08:00] VITALS: PULSE 60
[2023-11-19] MEDS: hydroCHLOROthiazide 25MG TABLET 25 MG PO (08:38)
[2023-11-19] MEDS: METOPROLOL SUCCINATE XL 100MG TABLET 200 MG PO (08:38)
[2023-11-19] MEDS: ASCORBIC ACID 500MG TAB 1000 MG PO (08:38)
[2023-11-19] MEDS: dilTIAZem ER 240MG CAPSULE 240 MG PO (08:38)
[2023-11-19] MEDS: PANTOPRAZOLE 40MG TABLET 40 MG PO (08:38)
[2023-11-19] MEDS: APIXABAN 5MG TABLET 5 MG PO (08:39)
--- NOTE | 2023-11-19 09:18 | EXP.CARD.PN ---
Subjective Subjective Date: 11/19/23 Time: 09:18 Principal diagnosis: A. flutter with RVR Interval history: 73-year-old white male sitting in bedside chair in no acute distress. States he feels much better since his heart rate has been controlled and is now back in sinus rhythm overnight. He did receive additional IV and oral beta-césar along with IV diltiazem this a.m. Exam Data for Last 24 hours Vital signs and Labs for Last 24 Hours: Temp Pulse Resp BP Pulse Ox O2 Del Method O2 Flow Rate 97.5 F L 72 20 138/77 96 Room Air 2 11/19/23 07:45 11/19/23 07:45 11/19/23 07:45 11/19/23 07:45 11/19/23 07:45 11/19/23 07:45 11/19/23 05:00 Laboratory Results - last 24 hr 11/18/23 11:07: POC Glucose 183 H 11/18/23 16:21: POC Glucose 169 H 11/18/23 20:54: POC Glucose 164 H 11/19/23 05:17: WBC 11.1 H, RBC 4.37 L, Hgb 14.8, Hct 47.2, MCV 108.0 H, MCH 33.8 H, MCHC 31.3 L, RDW 13.6, Plt Count 201, MPV 10.1, Neut % (Auto) 65.6, Lymph % (Auto) 21.5, [place] % (Auto) 9.6 H, Eos % (Auto) 2.7, Baso % (Auto) 0.6, Neut # (Auto) 7.3, Lymph # (Auto) 2.4, [place] # (Auto) 1.1 H, Eos # (Auto) 0.3, Baso # (Auto) 0.1, Sodium 140, Potassium 4.1, Chloride 108 H, Carbon Dioxide 28, Anion Gap 8.1, BUN 22 H, Creatinine 1.50 H, Estimated Creat Clear 61, Estimated GFR 46 L, Est GFR ( Amer) 55 L, Glucose 141 H D, Calcium 8.6, Magnesium 2.1, Total Bilirubin 0.9, AST 28, ALT 20, Alkaline Phosphatase 73, Total Protein 6.6, Albumin 4.0, Globulin 2.6, Albumin/Globulin Ratio 1.5 11/19/23 05:47: POC Glucose 139 H I & O for Last 24 hours: Intake & Output 11/16/23 11/17/23 11/18/23 11/19/23 11:59 11:59 11:59 11:59 Intake Total 674.167 / 153.299 5850.5 / 1733.5 Output Total 0 / 0 0 / 0 Balance 674.167 / 117.148 3893.5 / 1733.5 Weight 221 lb 6.4 oz 221 lb 6.387 oz Constitutional Constitutional: no acute distress *Routine Respiratory Exam Respiratory: Present CTA bilaterally *Routine Cardiovascular Exam Cardiovascular: Present RRR Progress Note: A&P Assessment and plan (1) New onset atrial flutter: Status: Acute (2) CKD (chronic kidney disease): Status: Acute (3) Hepatic cirrhosis: Status: Acute (4) Hypertension: Status: Acute (5) Type 2 diabetes mellitus: Status: Acute Assessment and Plan Assessment and Plan for All Diagnoses:: 1. New onset atrial flutter with RVR, converted to sinus rhythm overnight -Thyroids normal -Troponins normal -Echocardiogram shows EF 60% without significant valve disease -On diltiazem 240 mg daily -On Eliquis 5 mg twice daily for [id number] score of 4 (hypertension, diabetes, vascular disease and age) -Increase metoprolol to succinate to 200 mg in the morning and 100 mg in the afternoon 2. 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 CKD, stage III 4. Hypertension, controlled 5. Diabetes mellitus type 2, defer to hospitalist -Hemoglobin A1c 6.9 this admission 6. UIP pattern pulmonary fibrosis, slightly worsened compared to previous scans in 2019 7. Cirrhosis of the liver -Noted on abdominal CT this admission Stable from a cardiac standpoint for discharge home. Home medication recommendations: Eliquis 5 mg twice daily Diltiazem extended release 240 mg daily Metoprolol succinate 200 mg in the a.m., 100 mg in the p.m. Discontinue aspirin, amlodipine, clonidine and benazepril Continue Crestor 40 mg daily Follow-up in our office in 1 to 2 weeks. Consider outpatient referral to electrophysiology for ablation consideration.
[2023-11-19] MEDS: humaLOG 100 UNITS/ML 10ML VIAL (SSI) SQ (11:35)
[2023-11-19 11:42] VITALS: BP 150/87; PULSE 65; RESP 22; TEMP 36.5; O2SAT 96
[2023-11-19 11:47] LABS: POC Glucose,Bedside 171 (70-110)
--- NOTE | 2023-11-19 11:51 | EXP.DC.SUM ---
General Admission date:: 11/17/23 Discharge date: 11/19/23 HPI HPI HPI: This is a 73-year-old male with a PMHx of hypertension, hyperlipidemia, type 2 diabetes, GERD, prostate cancer presenting to the emergency department for evaluation with concern for chest pain. Patient reports that around 1 to 2 PM, he started spearing seeing pressure in the center of his chest. He denies experiencing any like this in the past. He received aspirin and nitroglycerin with EMS, which did help relieve his pain. He denies any other associated symptoms, such as recent fevers, chills, cough, congestion, abdominal pain, nausea, vomiting, changes in bowel movements, or other concerns. He reports compliance with his home medications. He arrives by EMS who noted that he was tachycardic en route and initially had several PVCs, but they state that he did not have any after administration of the aspirin and nitroglycerin. Admitted for further management. Hospital Course Hospital Course Hospital Course: 73-year-old male with a PMHx of hypertension, hyperlipidemia, type 2 diabetes, GERD, prostate cancer presenting to the emergency department for evaluation with concern for chest pain. On route he received aspirin and nitroglycerin by EMS. Fluid resuscitation with a liter bolus was given as initial work up. CT scan noted no obvious large PE and no obvious aortic pathology. Please see their read for final interpretation. Labs were obtained that demonstrated negative troponin. Patient had very mild leukocytosis. BNP is very mildly elevated. Creatinine is around the patient's baseline. He also has a mildly elevated lipase. He does not complain of any abdominal pain. findings discussed with ED. Agreed for inpatient monitoring. Improved rate control on morning rounds. Discussed case with cardiology. Transition to oral medications. Necessitated continued monitoring for adjustment of medication dose. Stable to discharge home, has converted to sinus rhythm. Will plan for close follow-up with cardiology in the coming weeks. Problems addressed as follows: New onset atrial flutter: Hypertension, controlled -Patient admitted for new onset a flutter. Started on diltiazem drip. Achieved rate control overnight. Discussed case with cardiology, transitioned to oral diltiazem 240 mg daily. Eliquis is initiated due to [id number] score of 4. Echo obtained with preliminary EF of 60%. Thyroid studies were normal, troponin normal. Discontinued patient's amlodipine and clonidine along with benazepril. Continue to have tachyarrhythmia after transitioning to oral diltiazem. Initiated on metoprolol succinate 200 mg in the morning, 100 mg at night. Converted to sinus rhythm over the last night of admission. Continue current regimen with close follow-up with cardiology. May need referral to electrophysiology as an outpatient if continues to have issues. Atypical chest pain with coronary artery calcifications noted on CT -Troponins normal. Will need outpatient cardiac workup CKD, stage III: Stable. BUN 22, creatinine 1.5. Diabetes mellitus type 2: Hemoglobin A1c 6.9 this admission. Continue home regimen of semaglutide 7 mg tablet daily, Janumet twice, glipizide twice daily. UIP pattern pulmonary fibrosis, slightly worsened compared to previous scans in 2019. No respiratory distress during admission. Cirrhosis of the liver: Noted on abdominal CT this admission, appears compensated, platelets 187. Stable to discharge home. Total time spent on discharge 32 minutes in counseling, documentation, chart review, and direct care with patient. Exam Data for Last 24 hours Vital signs and Labs for Last 24 Hours: Temp Pulse Resp BP Pulse Ox O2 Del Method O2 Flow Rate 97.7 F 65 22 150/87 H 96 Room Air 2 11/19/23 11:42 11/19/23 11:42 11/19/23 11:42 11/19/23 11:42 11/19/23 11:42 11/19/23 11:42 11/19/23 05:00 Laboratory Results - last 24 hr 11/18/23 16:21: POC Glucose 169 H 11/18/23 20:54: POC Glucose 164 H 11/19/23 05:17: WBC 11.1 H, RBC 4.37 L, Hgb 14.8, Hct 47.2, MCV 108.0 H, MCH 33.8 H, MCHC 31.3 L, RDW 13.6, Plt Count 201, MPV 10.1, Neut % (Auto) 65.6, Lymph % (Auto) 21.5, [place] % (Auto) 9.6 H, Eos % (Auto) 2.7, Baso % (Auto) 0.6, Neut # (Auto) 7.3, Lymph # (Auto) 2.4, [place] # (Auto) 1.1 H, Eos # (Auto) 0.3, Baso # (Auto) 0.1, Sodium 140, Potassium 4.1, Chloride 108 H, Carbon Dioxide 28, Anion Gap 8.1, BUN 22 H, Creatinine 1.50 H, Estimated Creat Clear 61, Estimated GFR 46 L, Est GFR ( Amer) 55 L, Glucose 141 H D, Calcium 8.6, Magnesium 2.1, Total Bilirubin 0.9, AST 28, ALT 20, Alkaline Phosphatase 73, Total Protein 6.6, Albumin 4.0, Globulin 2.6, Albumin/Globulin Ratio 1.5 11/19/23 05:47: POC Glucose 139 H 11/19/23 11:17: POC Glucose 171 H I & O for Last 24 hours: Intake & Output 11/16/23 11/17/23 11/18/23 11/19/23 23:59 23:59 23:59 23:59 Intake Total 4.833 / 4.833 1824.834 / 1824.834 938 / 938 Output Total 0 / 0 0 / 0 Balance 4.833 / 4.833 1824.834 / 1824.834 938 / 938 Weight 100.425 kg 100.425 kg 100.425 kg Constitutional Constitutional: no acute distress, obese and chronically ill appearing *Routine HEENT Exam Head: Present normocephalic Eye: Present EOMI and PERRL ENT: Present mucous membranes moist *Routine Neck Exam Neck: Present supple; Absent lymphadenopathy *Routine Respiratory Exam Respiratory: Present CTA bilaterally; Absent rhonchi, wheezes or crackles *Routine Cardiovascular Exam Cardiovascular: Present RRR *Routine Abdominal Exam Abdominal: Present soft and normoactive bowel sounds; Absent tenderness *Routine Rectal Exam Patient deferred: visual exam *Routine Exam Patient deferred: penile exam *Routine Extremities Exam Extremities: Absent cyanosis, clubbing or edema *Routine Skin Exam Skin: Present warm; Absent rash *Routine Neurological Exam Neurological: Present alert, oriented X3 and moving all extremities; Absent altered mental status Results Data Completed and Pending Labs on day of discharge: Labs from last 24 hours 11/19/23 11/19/23 11/19/23 11:17 05:47 05:17 WBC 11.1 H RBC 4.37 L Hgb 14.8 Hct 47.2 MCV 108.0 H MCH 33.8 H MCHC 31.3 L RDW 13.6 Plt Count 201 MPV 10.1 Neut % (Auto) 65.6 Lymph % (Auto) 21.5 [place] % (Auto) 9.6 H Eos % (Auto) 2.7 Baso % (Auto) 0.6 Neut # (Auto) 7.3 Lymph # (Auto) 2.4 [place] # (Auto) 1.1 H Eos # (Auto) 0.3 Baso # (Auto) 0.1 Sodium 140 Potassium 4.1 Chloride 108 H Carbon Dioxide 28 Anion Gap 8.1 BUN 22 H Creatinine 1.50 H Estimated Creat Clear 61 Estimated GFR 46 L Est GFR ( Amer) 55 L Glucose 141 H D POC Glucose 171 H 139 H Calcium 8.6 Magnesium 2.1 Total Bilirubin 0.9 AST 28 ALT 20 Alkaline Phosphatase 73 Total Protein 6.6 Albumin 4.0 Globulin 2.6 Albumin/Globulin Ratio 1.5 11/18/23 11/18/23 20:54 16:21 WBC RBC Hgb Hct MCV MCH MCHC RDW Plt Count MPV Neut % (Auto) Lymph % (Auto) [place] % (Auto) Eos % (Auto) Baso % (Auto) Neut # (Auto) Lymph # (Auto) [place] # (Auto) Eos # (Auto) Baso # (Auto) Sodium Potassium Chloride Carbon Dioxide Anion Gap BUN Creatinine Estimated Creat Clear Estimated GFR Est GFR ( Amer) Glucose POC Glucose 164 H 169 H Calcium Magnesium Total Bilirubin AST ALT Alkaline Phosphatase Total Protein Albumin Globulin Albumin/Globulin Ratio DS: Diagnosis Discharge Diagnosis (1) New onset atrial flutter: Status: Acute Code(s): I48.92 - Unspecified atrial flutter (2) CKD (chronic kidney disease): Status: Acute Code(s): N18.9 - Chronic kidney disease, unspecified Qualifiers: Chronic kidney disease stage: stage 3 (moderate) Chronic kidney disease stage 3 subtype: stage 3b (GFR 30-44) Qualified Code(s): N18.32 - Chronic kidney disease, stage 3b (3) Hepatic cirrhosis: Status: Acute Code(s): K74.60 - Unspecified cirrhosis of liver Qualifiers: Ascites presence: without ascites Hepatic cirrhosis type: unspecified hepatic cirrhosis Qualified Code(s): K74.60 - Unspecified cirrhosis of liver (4) Hypertension: Status: Acute Code(s): I10 - Essential (primary) hypertension Qualifiers: Hypertension type: primary hypertension Qualified Code(s): I10 - Essential (primary) hypertension (5) Type 2 diabetes mellitus: Status: Acute Code(s): E11.9 - Type 2 diabetes mellitus without complications Qualifiers: Diabetes mellitus complication detail: with other circulatory complications Diabetes mellitus complication status: with circulatory complication 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: with dedicated intermodal truck driver use Qualified Code(s): E11.59 - Type 2 diabetes mellitus with other circulatory complications; Z79.4 - FDC (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 insulin Meds Home Medications and Allergies Home Medications ?Medication ?Instructions ?Recorded ?Confirmed ?Type ascorbic acid (vitamin C) 1,000 mg 1,000 mg PO BID 03/27/23 11/17/23 History capsule hydrochlorothiazide 25 mg tablet 25 mg PO DAILY 30 days #30 tabs 09/19/23 11/17/23 Rx semaglutide 7 mg tablet (Rybelsus) 7 mg PO DAILY #30 tabs 09/19/23 11/17/23 Rx glipizide 10 mg tablet 10 mg PO BID 11/18/23 11/17/23 History metoprolol succinate 200 mg 200 mg PO DAILY 11/18/23 11/18/23 History tablet,extended release 24 hr pantoprazole 40 mg tablet,delayed 40 mg PO BID 11/18/23 11/17/23 History release rosuvastatin 40 mg tablet 40 mg PO DAILY 11/18/23 11/17/23 History sitagliptin phosphate 50 1 tab PO BID 11/18/23 11/17/23 History mg-metformin 1,000 mg tablet (Janumet) apixaban 5 mg tablet (Eliquis) 5 mg PO BID 30 days #60 tabs 11/19/23 Rx aspirin 81 mg tablet,delayed 81 mg PO DAILY 30 days #30 tabs 11/19/23 Rx release diltiazem HCl 240 mg 240 mg PO DAILY 30 days #30 caps 11/19/23 Rx capsule,extended release 24 hr metoprolol succinate 100 mg 100 mg PO HS 30 days #30 tabs 11/19/23 Rx tablet,extended release 24 hr New Prescriptions to Start Prescriptions: apixaban [Eliquis] [facility] aspirin [facility] diltiazem HCl [facility] metoprolol succinate [facility] Allergies Allergy/AdvReac Type Severity Reaction Status Date / Time No Known Allergies Allergy Verified 10/27/23 11:03 Discharge Plan Disposition Patient Disposition: Home, Self-Care Condition: Fair Discharge Order Discharge Orders: Discharge Order (Routine); Ordered 11/19/23 Ordered By: Parish Bah Follow up Plan Follow up with: Reggie Ndiaye PA [Physician Big Data Platform Architect] - 11/27/23 1:00 pm Otilio Menendez MD [Primary Care Provider] - 12/03/23 10:30 am Prescriptions/Medication Reconciliation: New Eliquis 5 mg Tablet 5 mg PO BID 30 Days Qty: 60 0RF aspirin 81 mg Tablet,Delayed Release (Dr/Ec) 81 mg PO DAILY 30 Days Qty: 30 0RF diltiazem HCl 240 mg Capsule,Extended Release 24hr 240 mg PO DAILY 30 Days Qty: 30 0RF metoprolol succinate 100 mg Tablet Extended Release 24 Hr 100 mg PO HS 30 Days Qty: 30 0RF Continued hydrochlorothiazide 25 mg tablet 25 mg PO DAILY 30 Days Qty: 30 2RF Rybelsus 7 mg tablet 7 mg PO DAILY Qty: 30 2RF ascorbic acid (vitamin C) 1,000 mg capsule 1,000 mg PO BID metoprolol succinate 200 mg tablet extended release 24 hr 200 mg PO DAILY glipizide 10 mg tablet 10 mg PO BID pantoprazole 40 mg tablet,delayed release (DR/EC) 40 mg PO BID rosuvastatin 40 mg tablet 40 mg PO DAILY Janumet 50-1,000 mg tablet 1 tab PO BID Discontinued aspirin 325 mg Tablet 325 mg PO DAILY amlodipine 5 mg tablet 5 mg PO DAILY clonidine HCl 0.2 mg tablet 0.2 mg PO BID benazepril [Lotensin] 40 mg tablet 40 mg PO DAILY Problem Reconciliation Problems Reviewed?: Yes Patient Discharge Instructions ACTIVITY: Continue current activity DIET: continue same diet Print Language: Kinyarwanda Providers Primary Care Provider: Otilio Menendez Admit Provider: Ben Wiggins Attending Provider: Ben Wiggins
--- NOTE | 2023-11-20 14:52 | CARE MANAGER ---
Contacted patient related to hospital discharge. He states he is doing better. He has new medications and is aware of medication that needs to be stopped. He is aware of follow up appointments and denies questions or concerns. SUDARSHAN Pacheco
[2023-11-22 05:06] LABS: POC Glucose,Bedside 149 (70-110)
== END 2023-11-19 14:30 | disposition home or self-care (01) | DRG 310 ==
LOC: ER 21:10 → 2ND 21:37
PROVIDERS: Internal Medicine Adolescent Medicine; Nurse Practitioner Family; Admitting Provider Internal Medicine; Emergency Provider Emergency Medicine; PCP Family Medicine; Visit Provider Internal Medicine
DX: I48.92 Unspecified atrial flutter (principal); N18.32 Chronic kidney disease, stage 3b; R07.89 Other chest pain; J84.10 Pulmonary fibrosis, unspecified; E11.22 Type 2 diabetes mellitus with diabetic chronic kidney disease; I12.9 Hypertensive chronic kidney disease with stage 1 through stage 4 chronic kidney disease, or unspecified chronic kidney disease; Z79.85 Long-term (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 injectable non-insulin antidiabetic drugs; Z79.84 Long term (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 oral hypoglycemic drugs; E78.5 Hyperlipidemia, unspecified; K21.9 Gastro-esophageal reflux disease without esophagitis; F17.210 Nicotine dependence, cigarettes, uncomplicated; R11.10 Vomiting, unspecified; Z85.46 Personal history of malignant neoplasm of prostate; G47.33 Obstructive sleep apnea (adult) (pediatric); E11.69 Type 2 diabetes mellitus with other specified complication; I48.91 Unspecified atrial fibrillation; K74.60 Unspecified cirrhosis of liver
CPT/HCPCS: 36415; 71275; 74177; 80053; 80061; 82962; 83036; 83690; 83735; 83880; 84436; 84443; 84484; 85025; 85610; 85730; 93005; 93306; 99291; J1650; J2405; J7120; Q9967

== ENCOUNTER 2023-12-09 07:35 | Outpatient (CLI) | payer MEDICARE, BC, SELFPAY ==
--- NOTE | 2023-12-09 07:40 | US_ITS ---
FINAL REPORT CLINICAL HISTORY: evaluate for changes/morphology FINDINGS: RIGHT UPPER QUADRANT ULTRASOUND Sonographic images of the right upper quadrant were obtained. The pancreas is partially obscured. There is fatty infiltration of the liver. There is a probable gallstone with poorly defined shadowing. The common duct measures 3 mm. Limited images of the right kidney are normal. IMPRESSION: Probable gallstone. Reviewed, Interpreted and Dictated by Jaycob Bush III, MD Transcribed by Yue Machado Authenticated and [facility]
== END 2023-12-09 23:59 | disposition home or self-care (01) ==
LOC: RAD 07:36
PROVIDERS: PCP Family Medicine; Visit Provider Nurse Practitioner
DX: K74.60 Unspecified cirrhosis of liver (principal)
CPT/HCPCS: 76705

== ENCOUNTER 2024-01-09 07:50 | Day surgery (SDC) | payer MEDICARE, BC, SELFPAY ==
[2024-01-09] VITALS (14 sets, daily range): BP systolic 112–149; BP diastolic 57–81; PULSE 57–66; RESP 16–20; TEMP 36.2–37.7; O2SAT 94–100; BMI 29.8
--- NOTE | 2024-01-09 07:04 | IR_ITS ---
APPROVED REPORT Patient Location: Outpatient Net Sql Developer: NEY Rebolledo RT (R) PROCEDURES Selective coronary angiogram Drug-eluting stent 1 to the proximal mid and distal LAD in a contiguous manner INDICATION Coronary artery disease, Angina pectoris Informed consent was obtained prior to the procedure. COMPLICATIONS none Estimated Blood Loss: less than 10ml TECHNIQUE One percent lidocaine used to anesthetize the right anterior aspect of the wrist. The right radial artery was accessed via the Seldinger technique. A 6 [place] sheath was placed in the right radial artery. 2.5 mg of Verapamil, 800 mcg of nitroglycerin, 1mg Lidocaine and 5000 U Heparin were given through the arterial sheath. The papa catheter was also used to perform selective coronary angiogram. At the end of the diagnostic angiogram therapeutic heparin was administered giving a therapeutic ACT and the guide catheters placed in left anterior descending artery which originated from the left coronary cusp and a Choice PT extra-support wire was placed distally. Primary stenting could not be performed therefore a 2.5 x 12 mm noncompliant balloon was deployed at 20 kristi in the mid calcified LAD reducing the stenosis. A 3 mm x 15 mm Tra frontier stent was deployed at 20 kristi reducing the stenosis to 0%. An additional 3.5 x 34 mm [place] frontier stent was placed proximal to the for stent yet still overlapping and deployed to 20 kristi. An additional 3 mm x 30 mm mm [place] frontier stent was placed distal to the for stent yet still overlapping and deployed at 16 kristi. The balloon was brought back and deployed at 24 kristi to further post dilate and mesh the 2 stents. DAMON-3 flow was present before and after the procedure. At the end the procedure the apparatus was removed the sheath was removed and hemostasis was achieved using TR banding patient was transferred to the postop putting in stable condition ANGIOGRAPHIC RESULTS The left anterior descending artery Originates from the left coronary cusp and has proximal eccentric 30 to 40% calcified stenosis with a mid vessel calcified concentric 80 to 90% stenosis with additional 40 and 50% stenoses distal to the stenosis. The LAD is large and wraps the apex and a portion of the inferior wall The circumflex artery Large and dominant originates from the right coronary cusp. The circumflex artery is widely patent the first obtuse marginal artery is less than 2 mm in diameter and has a long tubular 60 to 70% stenosis The right coronary artery Originates from the right coronary cusp is vestigial and normal The TEJEDA ventriculogram reveals Not performed The left ventricular end-diastolic pressure Not measured IMPRESSION Nondominant circulation as described above which is clinically insignificant Severe disease in the mid LAD with successful stenting of the proximal mid and distal LAD severe disease reduced to 0% with 3 contiguous drug-eluting stents Persistent severe stenosis in the first obtuse marginal artery which is best managed medically PLAN 1. Dual antiplatelet therapy 2. LDL less than 55 to achieve that high intensity statin 3. Risk factor modification 4. Cardiac rehabilitation 5. Avoidance of tobacco products Electronically signed by : Rob Mckenzie MD 01/09/2024 13:44:59
[2024-01-09 08:36] LABS: Basophils # 0.1 K/mm3 (0-0.2); Basophils % 0.4 % (0.1-2.0); Eosinophils # 0.2 K/mm3 (0.0-0.4); Eosinophils % 1.3 % (0.1-12.0); Hematocrit 54.2 % (42.0-52.0); Hemoglobin 16.9 g/dL (14.1-18.0); Lymphocytes # 2.3 K/mm3 (0.7-4.5); Lymphocytes % 15.2 % (10-50); Mean Corpuscular HGB Conc 31.3 g/dL (31.8-35.4); Mean Corpuscular Hemoglobin 33.9 pg (27.0-31.2); Mean Corpuscular Volume 108.6 fl (80-94); Mean Platelet Volume 8.5 fl (7.4-10.4); Monocytes # 1.1 K/mm3 (0.1-1.0); Monocytes % 7.1 % (1.7-9.3); Neutrophils # 11.4 K/mm3 (1.8-7.8); Platelet Count 212 K/mm3 (142-424); Red Blood Count 4.99 M/mm3 (4.60-6.20); Red Cell Distribution Width 13.6 % (11.5-17.5)
[2024-01-09 08:37] LABS: White Blood Count 14.9 K/mm3 (4.8-10.8)
[2024-01-09 08:38] LABS: Chloride 102 mmol/L (98-107); Potassium 4.6 mmoL/L (3.5-5.1); Sodium 139 mmol/L (136-145)
[2024-01-09 08:41] LABS: Anion Gap 14.6 mEq/L (5-15); Blood Urea Nitrogen 30 mg/dl (9-20); Carbon Dioxide 27 mmol/L (22.0-30.0); Creatinine Clearance Estimated 54 mL/min (50-200); Estimated Glomerular Filt Rate 40 ml/min (>60); GFR (African American) 48 ML/MIN (>60)
[2024-01-09 08:42] LABS: Calcium 10.3 mg/dl (8.4-10.2); Glucose 82 mg/dl (74-100)
[2024-01-09] MEDS: ONDANSETRON 4MG/2ML VIAL 4 MG IV (08:42)
[2024-01-09] MEDS: HEPARIN 1,000 UNITS/ML 10ML VIAL (CATH LAB) 10000 UNIT IV (09:56)
[2024-01-09] MEDS: LIDOCAINE 1% 10ML MDV 20 ML IJ (09:56)
[2024-01-09] MEDS: HEPARIN 1,000 UNITS/500ML NS (CATH LAB) 3000 UNIT IV (09:56)
[2024-01-09] MEDS: NITROGLYCERIN 800MCG/8ML SYR (CATH LAB) 800 MCG IA (09:57)
[2024-01-09] MEDS: VERAPAMIL 2.5MG/ML 2ML VIAL 2.5 MG IV (09:57)
[2024-01-09] MEDS: MIDAZOLAM HCL 1MG/1ML 5ML VIAL 1 MG IV (09:57)
[2024-01-09] MEDS: FENTANYL 100MCG/2ML VIAL 50 MCG IV (09:57)
[2024-01-09] MEDS: 0.9 % SODIUM CHLORIDE 500 ML 25 ML IV (09:57)
[2024-01-09] MEDS: diphenhydrAMINE 50MG/ML VIAL 50 MG IV (09:58)
[2024-01-09] MEDS: CLOPIDOGREL 300MG TABLET 600 MG PO (10:34)
[2024-01-09] MEDS: 0.9 % SODIUM CHLORIDE 1000ML 1,500 ML 999 ML IV (10:54)
--- NOTE | 2024-01-09 13:03 | SUR.PHASEII ---
1230: 3ml of air removed from radial band. No bleeding noted at this time. 1245: 4ml of air removed from radial band. Serousanguinous drainage noted from site. 5ml of air added back to band and drainage subsided.
--- NOTE | 2024-01-09 13:54 | SUR.PHASEII ---
1300: 3ml of air removed. No bleeding noted. 1315: 3ml of air removed. No bleeding noted. 1330: 5ml of air removed and telfa/tegaderm applied. No bleeding noted. Discharge instructions given.
[2024-01-09] MEDS: IOPAMIDOL-370 (76%);100ML BOTTLE 60 ML IV (15:16)
[2024-01-09 15:25] LABS: CATHL Activated Clotting Time > 400 SEC (74-125)
== END 2024-01-09 14:00 | disposition home or self-care (01) ==
PROVIDERS: PCP Family Medicine; Visit Provider Internal Medicine
DX: R07.89 Other chest pain (principal); I25.118 Atherosclerotic heart disease of native coronary artery with other forms of angina pectoris; F17.210 Nicotine dependence, cigarettes, uncomplicated; Z79.899 Other long term (current) drug therapy; Z79.84 Long term (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 oral hypoglycemic drugs; Z79.85 Long-term (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 injectable non-insulin antidiabetic drugs; I77.1 Stricture of artery; I48.0 Paroxysmal atrial fibrillation; N18.32 Chronic kidney disease, stage 3b; E11.22 Type 2 diabetes mellitus with diabetic chronic kidney disease; I12.9 Hypertensive chronic kidney disease with stage 1 through stage 4 chronic kidney disease, or unspecified chronic kidney disease
CPT/HCPCS: 80048; 85025; 85347; 92928; 93454; 99152; 99153; C1725; C1769; C1874; C9600; J1200; J1644; J2250; J2405; J3010; J7030; Q9967

== ENCOUNTER 2024-01-10 08:07 | Outpatient (CLI) | payer MEDICARE, BC, SELFPAY ==
[2024-01-10 08:34] LABS: Basophils # 0.1 K/mm3 (0-0.2); Basophils % 0.8 % (0.1-2.0); Eosinophils # 0.1 K/mm3 (0.0-0.4); Hematocrit 49.9 % (42.0-52.0); Hemoglobin 16.3 g/dL (14.1-18.0); Lymphocytes # 2.2 K/mm3 (0.7-4.5); Mean Corpuscular HGB Conc 32.7 g/dL (31.8-35.4); Mean Corpuscular Hemoglobin 34.1 pg (27.0-31.2); Mean Corpuscular Volume 104.3 fl (80-94); Mean Platelet Volume 8.8 fl (7.4-10.4); Monocytes # 1.2 K/mm3 (0.1-1.0); Neutrophils # 10.8 K/mm3 (1.8-7.8); Neutrophils % 75.2 % (37.0-80.0); Platelet Count 192 K/mm3 (142-424); Red Blood Count 4.79 M/mm3 (4.60-6.20); Red Cell Distribution Width 13.4 % (11.5-17.5); White Blood Count 14.4 K/mm3 (4.8-10.8)
[2024-01-10 08:53] LABS: Chloride 105 mmol/L (98-107); Sodium 139 mmol/L (136-145)
[2024-01-10 08:56] LABS: Blood Urea Nitrogen 26 mg/dl (9-20); Calcium 9.8 mg/dl (8.4-10.2); Carbon Dioxide 25 mmol/L (22.0-30.0); Estimated Glomerular Filt Rate 46 ml/min (>60); GFR (African American) 55 ML/MIN (>60); Glucose 57 mg/dl (74-100)
== END 2024-01-10 23:59 | disposition home or self-care (01) ==
LOC: LAB 08:09
PROVIDERS: PCP Family Medicine; Visit Provider Internal Medicine
DX: I25.10 Atherosclerotic heart disease of native coronary artery without angina pectoris (principal)
CPT/HCPCS: 36415; 80048; 85025

== ENCOUNTER 2024-02-05 08:40 | Outpatient (CLI) | payer MEDICARE, BC, SELFPAY ==
--- NOTE | 2024-02-05 08:43 | US_ITS ---
PROCEDURE INFORMATION: Exam: US Retroperitoneal, Kidney(s) Exam date and time: 02/05/2024 8:44 AM Age: 74 years old Clinical indication: Condition or disease; Other: Hypertension; Additional info: I10 - essential (primary) hypertension TECHNIQUE: Imaging protocol: Real-time ultrasound of the retroperitoneum with image documentation. Examination was focused on the kidneys. COMPARISON: US ABDOMEN COMPLETE 07/16/2022 9:36 AM FINDINGS: Right kidney: Normal echogenicity. No mass. No calculi. No hydronephrosis. Left kidney: Normal echogenicity. No mass. No calculi. No hydronephrosis. Liver: Fatty infiltration. Spleen: No splenomegaly. IMPRESSION: No acute findings.
== END 2024-02-05 23:59 | disposition home or self-care (01) ==
PROVIDERS: PCP Family Medicine; Visit Provider Nurse Practitioner Family
DX: I10 Essential (primary) hypertension (principal); Z95.5 Presence of coronary angioplasty implant and graft; I25.10 Atherosclerotic heart disease of native coronary artery without angina pectoris; R00.1 Bradycardia, unspecified; I48.0 Paroxysmal atrial fibrillation; R94.31 Abnormal electrocardiogram [ECG] [EKG]; N18.32 Chronic kidney disease, stage 3b; E11.59 Type 2 diabetes mellitus with other circulatory complications; Z79.4 Long term (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 insulin
CPT/HCPCS: 76770

== ENCOUNTER 2024-02-06 08:46 | Outpatient (CLI) | payer MEDICARE, BC, SELFPAY ==
--- NOTE | 2024-02-06 08:48 | CA_ITS ---
FINAL REPORT TECHNIQUE: Grayscale, color Doppler and duplex Doppler ultrasound of the kidneys, aorta and renal arteries was performed. Multiple velocities were measured. CLINICAL HISTORY: HTN,DM,SMOKER COMPARISON: None FINDINGS: Aorta velocity: 70.5 cm/sec Right kidney: 11.9 cm. No evidence of hydronephrosis or mass. Right intrarenal RI: 0.4-0.63 Right renal artery velocity: 488 cm/sec. Right RAR (Renal artery-Aortic Ratio): 6.9 Left Kidney: 11.2 cm. No evidence of hydronephrosis or mass. Left intrarenal RI: 0.67-0.77 Left renal artery velocity: 353 cm/sec. Left RAR (Renal Artery-Aortic Ratio): 5 IMPRESSION: Elevated velocities and renal artery to aorta ratios are consistent with significant greater than 60% stenosis of the renal arteries bilaterally. Recommend correlation with catheter angiography. Reviewed, Interpreted and Dictated by Jaycob Bush III, MD Transcribed by Machelle Aceves Authenticated and [facility]
== END 2024-02-06 23:59 | disposition home or self-care (01) ==
LOC: RT 08:46
PROVIDERS: PCP Family Medicine; Visit Provider Physician Assistant
DX: I10 Essential (primary) hypertension (principal)
CPT/HCPCS: 93976

== ENCOUNTER 2024-02-16 08:30 | Outpatient (CLI) | payer MEDICARE, BC, SELFPAY ==
--- NOTE | 2024-02-16 08:32 | CA_ITS ---
APPROVED REPORT EXAM: Comprehensive 2D, Doppler, and color-flow Echocardiogram Ct Mri Technologist: Adele Begum RVT Ht: 6 ft 0 in Wt: 222lbs BSA: 2.23 BP: 151/63 mmHg Indications: A-FIB,CAD,BRADYCARDIA,PHTN,CM,COPD,HTN,HLD,SMOKER 2D Dimensions IVSd 1.77 cm M: 0.6-1.2 LVEF (Visual) 59.60 % PWd 1.48 cm M: 0.6 - 1.2 LA Volume 29.10 mL LVDd 2.53 cm M: 4.2 - 5.9 LA Volume Index 13.05 mL/m2 (M/F) 16-34 LVDs 1.77 cm M: 2.5 - 4.0 M-Mode Dimensions LA Diam 2.67 cm (1.9-4.0) TAPSE 1.60 (<1.7) LV Diastology E Decel Time 240 (160-240 msec) E/A Ratio 0.7 Aortic Valve CRYSTAL Index 1.50 cm2/m2 AoV Peak Panfilo. 67.0 (50-130 cm/s) AO Peak GR. 1.80 mmHg AO Mean GR. 1.00 (<5 mmHg) AO VTI 14.2 (18-25 cm) CRYSTAL (VTI) 3.42 (2.5-4.5 cm2) Mitral Valve MV E Max Panfilo. 56.0 (40-130 cm/s) MV A Velocity 79.0 (40-130 cm/s) E/A Ratio 0.71 MV PHT 70.0 ms Pulmonary Valve PV Peak Velocity 81.0 (50-150 cm/s) Tricuspid Valve TR P. Velocity 155.00 cm/s RAP Estimate 10.00 mmHg RVSP 19.60 mmHg Left Ventricle The left ventricle is normal size. The left ventricular systolic function is normal. The left ventricular ejection fraction is within the normal range. There is increased LV wall thickness. There is normal LV segmental wall motion. Transmitral Doppler flow pattern suggests impaired LV relaxation. LVEF is 55%. Right Ventricle The right ventricle is mildly dilated. The right ventricular systolic function is normal. Atria The left atrium size is normal. The right atrium size is normal. There is no Doppler evidence of interatrial shunt. Aortic Valve The aortic valve is mildly thickened. There is no aortic valvular stenosis. No aortic regurgitation is present. Mitral Valve The mitral valve leaflets are mildly thickened. No evidence of mitral valve stenosis. Trace mitral regurgitation. Tricuspid Valve The tricuspid valve leaflets are thin and pliable. Trace tricuspid regurgitation. There is insufficient TR jet to estimate RVSP. Pulmonic Valve The pulmonary valve is normal in structure. Trace pulmonic regurgitation. Great Vessels The aortic root is normal in size. The ascending aorta is not well-visualized. IVC is normal in size and collapses >50% with inspiration. Pericardium There is no pericardial effusion. Other Information Study Quality: Fair Conclusion Normal biventricular systolic function. RV is mildly dilated. No significant valvular stenosis or regurgitation. Electronically signed by : Gayatri Hale MD 02/19/2024 00:11:33
== END 2024-02-16 23:59 | disposition home or self-care (01) ==
LOC: RT 08:30
PROVIDERS: PCP Family Medicine; Visit Provider Internal Medicine Clinical Cardiac Electrophysiology
DX: I51.7 Cardiomegaly (principal); I25.10 Atherosclerotic heart disease of native coronary artery without angina pectoris
CPT/HCPCS: 93306

== ENCOUNTER 2024-02-25 09:00 | Outpatient (RCR) | payer MEDICARE, BC, SELFPAY | END 2024-03-08 14:26 | disposition home or self-care (01) | LOC: PT 09:00 | PROVIDERS: Visit Provider Orthopaedic Surgery Adult Reconstructive Orthopaedic Surgery | DX: M25.512 Pain in left shoulder (principal); M75.102 Unspecified rotator cuff tear or rupture of left shoulder, not specified as traumatic | CPT/HCPCS: 97014; 97035; 97110; 97163; 97530; G0283 ==

== ENCOUNTER 2024-03-26 14:28 | Observation (INO) | payer MEDICARE, BC, SELFPAY ==
[2024-03-26] VITALS (10 sets, daily range): BP systolic 126–154; BP diastolic 73–93; PULSE 74–95; RESP 12–20; TEMP 36.4–36.9; O2SAT 94–99; BMI 28.2; BMI 27.6
--- NOTE | 2024-03-26 14:30 | ECG_ITS ---
APPROVED REPORT Exam: Resting ECG HR:73 bpm ECG Measurements Heart Rate 73 AXES VA 180 P 59 QRSd 126 QRS -33 QT 396 T 63 QTc 422 Conclusion SINUS RHYTHM INDETERMINATE AXIS RIGHT BUNDLE BRANCH BLOCK [120+ ms QRS DURATION, UPRIGHT V1, 40+ ms S IN I/aVL/V4/V5/V6] ABNORMAL ECG Electronically signed by : JEREMIE BRITO, 03/27/2024 07:19:53
--- NOTE | 2024-03-26 14:31 | ED_ITS ---
<Statement entered by Kendell Broussard MD - 03/26/24 23:15> JOHNSON Attestation I was consulted by the JOHNSON, and we discussed the complexity of problems being addressed. I approved the treatment and management plan for this patient's care in the emergency department, thus performing a substantial portion of the medical decision making. Kendell Broussard MD Discharge Plan Disposition Patient Disposition: Admitted Condition: Serious Clinical Impressions Clinical Impression: Acute kidney injury superimposed on CKD, Sepsis without septic shock, Transaminitis Acute pancreatitis Qualifiers: Pancreatitis type: unspecified pancreatitis type Acute pancreatitis complication: unspecified Qualified Code(s): K85.90 - Acute pancreatitis without necrosis or infection, unspecified Cholelithiasis Qualifiers: Cholelithiasis location: gallbladder Cholecystitis presence: without cholecystitis Discharge ED Provider: Kendell Broussard General Adult HPI <JEANNE Fontanez - Last Filed: 03/26/24 18:06> General Chief complaint: Nausea/Vomiting/Diarrhea Stated complaint: chest pain Time Seen by Provider: 03/26/24 14:31 History of Present Illness HPI narrative: Patient presents for evaluation of left-sided chest pain nausea vomiting and diarrhea. Patient gives a history of 10 days of left-sided lower anterior chest pain with associated nausea vomiting. He states that he has been diagnosed with cholecystitis in the past however patient had cardiac stents placed in December and from an elective standpoint his surgeon scheduled him for an elective cholecystectomy in July of next year. Patient reports that he has had numerous episodes of nausea vomiting especially after trying to eat over the last 10 days. Additionally he has been having pain that he can actually pinpoint in touch with his fingers in the left anterior lower chest. He denies fever chills hemoptysis hematochezia melena hematemesis. Related Data Previous Rx's ?Medication ?Instructions ?Recorded apixaban 5 mg tablet (Eliquis) 5 mg PO BID 30 days #60 tabs 12/18/23 diltiazem HCl 240 mg 240 mg PO DAILY 30 days #30 caps 12/18/23 capsule,extended release 24 hr glipizide 10 mg tablet 10 mg PO BID #60 tabs 12/18/23 hydrochlorothiazide 25 mg tablet 25 mg PO DAILY 30 days #30 tabs 12/18/23 metoprolol succinate 100 mg 100 mg PO HS 30 days #30 tabs 09/12/24 tablet,extended release 24 hr metoprolol succinate 200 mg 200 mg PO DAILY #30 tabs 12/18/23 tablet,extended release 24 hr pantoprazole 40 mg tablet,delayed 40 mg PO BID #60 tabs 12/18/23 release rosuvastatin 40 mg tablet 40 mg PO DAILY #30 tabs 12/18/23 semaglutide 7 mg tablet (Rybelsus) 7 mg PO DAILY #30 tabs 12/18/23 sitagliptin phosphate 50 1 tab PO BID #60 tabs 12/18/23 mg-metformin 1,000 mg tablet (Janumet) prasugrel 10 mg tablet (Effient) 10 mg PO DAILY 30 days #30 tabs 01/09/24 spironolactone 25 mg tablet 25 mg PO DAILY #30 tabs 02/24/24 (Aldactone) Allergies Allergy/AdvReac Type Severity Reaction Status Date / Time No Known Allergies Allergy Verified 03/23/24 09:04 [facility] <JEANNE Fontanez - Last Filed: 03/26/24 18:06> [facility] Disclaimer: The information contained in this section may have been updated after the patient was seen, as this information can be updated by other users. Medical History Coronary artery disease Abdominal pain MARY (acute kidney injury) CKD (chronic kidney disease) Diabetes 1.5, managed as type 2 Acute hyperkalemia Fatty infiltration of liver Elbow pain History of rectal fissure Cirrhosis of liver Hepatic cirrhosis Abdominal pain Pneumonia ETD (eustachian tube dysfunction) Hypertrophy of both inferior nasal turbinates Unilateral hearing loss Nasal septal deviation Rib pain Skin infection Cough Smoking Tobacco abuse counseling Sinusitis Anal fissure History of hemorrhoids Renal insufficiency Prostate cancer GERD (gastroesophageal reflux disease) Torn Achilles tendon COPD (chronic obstructive pulmonary disease) Bronchitis Hyperlipidemia associated with type 2 diabetes mellitus Diabetes type 2, controlled Hypertension associated with diabetes Surgical History History of coronary artery stent placement History of prostate surgery Hx of hemorrhoidectomy History of hand surgery History of hernia repair History of colonoscopy History of tonsillectomy Family History Father Cancer Heart attack Stroke Mother Heart attack Stroke Social History Smoking Status: Current every day smoker tobacco type: cigarettes packs per day: 1 alcohol intake: never substance use type: denies use current occupational status: retired Travel in the last 8 weeks: None household members: spouse housing: house marital status: education level: vocational service: No caffeine: Yes special roxanne needs: No do you feel safe at home: Yes victim of physical abuse: No victim of emotional abuse: No victim of sexual abuse: No would you like helpful sources: No Have you lived/traveled outside [place] in past 30 days?: No Contact w/someone who lives/traveled outside US past 30 days?: No Exposure to someone with infectious disease in past 14 days?: No Do you have a fever (greater than 100.4 F or 38 C)?: No Have you tested positive for COVID-19: No Exposed to someone with COVID-19 in past 14 days?: No Do you have a sore throat?: No Do you have a cough?: Yes Do you have any weakness?: Yes Do you have any diarrhea?: Yes Are you experiencing any unusual bleeding?: No Do you have any muscle aches/pain?: Yes Do you have any abdominal pain?: Yes Are you experiencing loss of taste or smell?: No Other Medical History Have you received the Flu Vaccine for this season: No Have you received the Pneumonia Vaccine: Yes <JEANNE Fontanez - Last Filed: 03/26/24 18:06> ROS Obtained: Yes Systems reviewed as appropriate & no additional complaints except as documented Physical Exam <JEANNE Fontanez - Last Filed: 03/26/24 18:06> General General appearance: alert and in no apparent distress Respiratory Respiratory exam: Present normal lung sounds bilaterally Cardiovascular Cardiovascular exam: Present regular rate Neurological Exam Neurological exam: Present alert and oriented X3 <Kendell Broussard MD - Last Filed: 03/26/24 23:15> Abdominal Exam Abdominal exam: Present soft and tenderness (Epigastric and right upper quadrant); Absent guarding, rebound or rigidity exam: Present normal inspection Skin Skin exam: Present warm Medical Decision Making <JEANNE Fontanez - Last Filed: 03/26/24 18:06> Medical Records Medical records reviewed: Yes I reviewed the patient's medical records. Screening: Per USPSTF and CDC recommendations, given the prevalence of disease in our region, it is our hospital?s policy to screen for HIV and viral Hepatitis for all patients aged 18 and over and those with ongoing risk factors. Jose Inquiry Pt receiving controlled substance: No Vital Signs: 03/26/24 14:29 03/26/24 15:00 03/26/24 15:30 Temperature 97.7 F Temperature Source Oral Pulse Rate 74 74 Pulse Rate [Apical] 76 Respiratory Rate 18 14 Blood Pressure 141/79 H 154/93 H Blood Pressure [Left Arm] 148/93 H Blood Pressure Mean [Left Arm] 111 Blood Pressure Source [Left Arm] Automatic Cuff Blood Pressure Position [Left Arm] Sitting 02 Sat by Pulse Oximetry 97 95 97 Oxygen Delivery Method Room Air Room Air Room Air 03/26/24 17:30 03/26/24 17:52 03/26/24 18:00 Temperature 98.5 F Temperature Source Pulse Rate 81 86 95 H Pulse Rate [Apical] Respiratory Rate 16 20 17 Blood Pressure 138/90 126/84 143/86 H Blood Pressure [Left Arm] Blood Pressure Mean [Left Arm] Blood Pressure Source [Left Arm] Blood Pressure Position [Left Arm] 02 Sat by Pulse Oximetry 96 96 Oxygen Delivery Method Room Air Room Air Room Air 03/26/24 18:03 03/26/24 18:30 Temperature 97.9 F Temperature Source Oral Pulse Rate 75 80 Pulse Rate [Apical] Respiratory Rate 18 12 Blood Pressure 143/86 H 134/83 Blood Pressure [Left Arm] Blood Pressure Mean [Left Arm] Blood Pressure Source [Left Arm] Blood Pressure Position [Left Arm] 02 Sat by Pulse Oximetry 96 Oxygen Delivery Method Room Air Lab Data Lab results reviewed: Yes I reviewed the patient's lab results. Lab Results 03/26/24 14:30: WBC 18.5 H, RBC 4.92, Hgb 16.9, Hct 48.6, MCV 98.8 H, MCH 34.3 H , MCHC 34.8, RDW 12.2, Plt Count 210, MPV 11.0 H, Neut % (Auto) 86.9 H, Lymph % (Auto) 3.9 L, [place] % (Auto) 6.4, Eos % (Auto) 0.7, Baso % (Auto) 0.4, Neut # (Auto) 16.1 H, Lymph # (Auto) 0.7, [place] # (Auto) 1.2 H, Eos # (Auto) 0.1, Baso # (Auto) 0.1, Total Counted 100, Neutrophils % (Manual) 91 H, Lymphocytes % (Manual) 5 L, Monocytes % (Manual) 3, Eosinophils % (Manual) 1, Platelet Estimate Normal, RBC Morphology Normal, Sodium 130 L, Potassium 5.4 H, Chloride 102, Carbon Dioxide 26, Anion Gap 7.4, BUN 37 H, Creatinine 2.30 H, Estimated Creat Clear 37, Estimated GFR 28 L, Est GFR ( Amer) 34 L, Glucose 278 H, Calcium 8.9, Magnesium 2.2, Total Bilirubin 1.4 H, AST 85 H, ALT 110 H, Alkaline Phosphatase 101, Troponin I < 0.01, NT-Pro-B Natriuret Pep 260, Total Protein 7.4, Albumin 4.5, Globulin 2.9, Albumin/Globulin Ratio 1.6, Lipase 570 H, Procalcitonin 0.610, HIV Ag/Ab Combo Qual Negative 03/26/24 15:27: Urine Color Yellow, Urine Appearance Sl cloudy, Urine pH 6.0, Ur Specific [place] >= 1.030, Urine Protein 2+ A, Urine Glucose (UA) 1+, Urine Ketones Negative, Urine Blood Negative, Urine Nitrate Negative, Urine Bilirubin Negative, Urine Urobilinogen 0.2, Ur Leukocyte Esterase Negative, Urine RBC None, Urine WBC Occasional, Ur Squamous Epith Cells Occasional, Urine Bacteria Trace, Fine Granular Casts 3-5 03/26/24 18:10: Troponin I < 0.01 03/26/24 14:30 03/26/24 14:30 Orders (Tests/Meds): ED MEDICATIONS Generic Name Dose Route Start Last Admin Trade Name Freq PRN Reason Stop Dose Admin Acetaminophen 650 mg 03/26/24 18:47 Acetaminophen 325mg Tab PO 04/25/24 18:46 Q4HP PRN Fever or Mild Pain (1-3) Atorvastatin Calcium 80 mg 03/26/24 21:00 03/26/24 21:02 Atorvastatin 40mg Tablet PO 04/25/24 20:59 80 mg HS ALINE Administration Diltiazem HCl 240 mg 03/27/24 09:00 Diltiazem Er 240mg Capsule PO 04/26/24 08:59 DAILY ALINE Enoxaparin Sodium 40 mg 03/27/24 09:00 Enoxaparin 40mg/0.4ml Syringe SUBCUT 04/26/24 08:59 DAILY ALINE Sodium Chloride 1,000 mls @ 75 mls/hr 03/26/24 19:00 03/26/24 21:01 Sod Chlor 0.9% 1000ml Bag IV 04/25/24 18:59 75 mls/hr .[id number] ALINE Administration Piperacillin Sod/Tazobactam 50 mls @ 100 mls/hr 03/26/24 20:15 03/26/24 21:01 Sod 3.375 gm/ Sodium Chloride IV 04/05/24 20:14 100 mls/hr Q8H ALINE Administration Insulin Human Lispro 0 unit 03/26/24 21:00 03/26/24 21:02 Humalog 100 Units/Ml 10ml Vial (Ssi) SUBCUT 04/25/24 20:59 4 unit ACHS ALINE Administration Protocol Metoprolol Succinate 100 mg 03/26/24 21:00 03/26/24 21:03 Metoprolol Succinate Xl 100mg Tablet PO 04/25/24 20:59 100 mg HS ALINE Administration Morphine Sulfate 2 mg 03/26/24 18:47 Morphine 2mg/Ml Syringe IV 04/25/24 18:46 Q4HP PRN Moderate Pain (4-6) Morphine Sulfate 4 mg 03/26/24 18:47 Morphine 4mg/Ml Syringe IV 04/25/24 18:46 Q4HP PRN Severe Pain (7-10) Non-Formulary Medication 200 mg 03/27/24 09:00 Metoprolol Succinate PO 04/26/24 08:59 DAILY ALINE Ondansetron HCl 4 mg 03/26/24 18:47 Ondansetron 4mg/2ml Vial IV 04/25/24 18:46 Q8HP PRN Nausea Pantoprazole Sodium 40 mg 03/26/24 21:00 03/26/24 21:02 Pantoprazole 40mg Tablet PO 04/25/24 20:59 40 mg BID ALINE Administration Sodium Chloride 10 ml 03/26/24 18:47 Sodium Chloride 0.9% 10ml Flush Syringe IV 04/25/24 18:46 NEEDED PRN Maintain IV Site Discontinued Medications Generic Name Dose Route Start Last Admin Trade Name Freq PRN Reason Stop Dose Admin Acetaminophen 650 mg 03/26/24 19:44 Acetaminophen 325mg Tab PO 04/25/24 19:43 Q6HP PRN Fever or Mild Pain (1-3) Piperacillin Sod/Tazobactam 50 mls @ 100 mls/hr 03/26/24 17:08 03/26/24 17:34 Sod 3.375 gm/ Sodium Chloride IV 03/26/24 17:37 100 mls/hr ONCE ONE Administration Sodium Chloride 1,000 mls @ 999 mls/hr 03/26/24 17:11 03/26/24 17:34 Sod Chlor 0.9% 1000ml Bag IV 03/26/24 18:11 999 mls/hr .Q1H1M ONE Administration Ondansetron HCl 4 mg 03/26/24 14:59 03/26/24 15:08 Ondansetron 4mg/2ml Vial IV 03/26/24 15:00 4 mg ONCE ONE Administration ORDERS Category Date Time Status CT abdomen pelvis wo con Stat Cat Scan 03/26/24 17:07 Completed Chest XR 2 view (NOT portable) [XR chest 2V] Stat Exams 03/26/24 15:00 Completed BNP [NT Pro Brain Natriuretic Pep.] Stat Lab 03/26/24 14:30 Completed CBC w/Auto Diff [Complete Blood Count Auto Diff] Stat Lab 03/26/24 14:30 Completed CMP [Comprehensive Metabolic Panel] Stat Lab 03/26/24 14:30 Completed Complete Blood Count Auto Diff AMLAB Lab 03/27/24 06:00 Ordered Complete Blood Count Auto Diff AMLAB Lab 03/28/24 06:00 Ordered Complete Blood Count Auto Diff AMLAB Lab 03/29/24 06:00 Ordered Complete Blood Count Auto Diff AMLAB Lab 03/30/24 06:00 Ordered Complete Blood Count Auto Diff AMLAB Lab 03/31/24 06:00 Ordered Comprehensive Metabolic Panel AMLAB Lab 03/27/24 06:00 Ordered Comprehensive Metabolic Panel AMLAB Lab 03/28/24 06:00 Ordered Comprehensive Metabolic Panel AMLAB Lab 03/29/24 06:00 Ordered Comprehensive Metabolic Panel AMLAB Lab 03/30/24 06:00 Ordered Comprehensive Metabolic Panel AMLAB Lab 03/31/24 06:00 Ordered HIV Combo Stat Lab 03/26/24 14:30 Completed Lipase Stat Lab 03/26/24 14:30 Completed Magnesium AMLAB Lab 03/27/24 06:00 Ordered Magnesium AMLAB Lab 03/28/24 06:00 Ordered Magnesium AMLAB Lab 03/29/24 06:00 Ordered Magnesium AMLAB Lab 03/30/24 06:00 Ordered Magnesium AMLAB Lab 03/31/24 06:00 Ordered Magnesium Stat Lab 03/26/24 14:30 Completed Procalcitonin Stat Lab 03/26/24 14:30 Completed Trop I [Troponin I] Stat Lab 03/26/24 14:30 Completed Troponin I Q3H Lab 03/26/24 18:10 Completed Troponin I Q3H Lab 03/26/24 20:55 Completed UA [Urinalysis and Microscopic] Stat Lab 03/26/24 15:27 Completed Blood Culture Stat Micro 03/26/24 17:15 Received US abdomen complete Stat Ultrasound 03/26/24 15:36 Completed Tissue Perfus/Sepsis Re-Eval Sepsis Re-Evaluation Performed: Yes Date Performed: 03/26/24 Time Performed: 17:14 HEART Score History (anamnesis): Slightly suspicious ECG: Non-specific disturbance Age: >65 years Risk factors: Atherosclerosis history Troponin: </= normal limit HEART Score: 5 Medical Decision Narrative: In summary patient is a 74-year-old male who presents to the emergency department for evaluation of chest pain nausea vomiting. Patient is hemodynamically stable upon arrival, afebrile. Physical exam is remarkable for actually epigastric tenderness along with lower anterior chest wall tenderness to palpation but normal breath sounds normal bowel sounds no rebound or guarding or rigidity.. Differential diagnosis includes ACS versus pneumonia versus gastritis for esophagitis versus pancreatitis versus cholecystitis etc. Initial workup will be conducted with hematologic labs plain film chest x-ray. Initial interventions include crystalloid bolus Tylenol Zofran. Initial workup reviewed by me shows a white count of 18.5 normal hemoglobin and hematocrit absolute neutrophil count is 16.1, CMP significant for a sodium of 130 potassium of 5.4 BUN of 37 creatinine 2.3 GFR of 28 total bilirubin of 1.4 AST of 85 ALT of 110 alk phos 101 initial troponin is undetectable at 0.01 NT proBNP is 260 lipase is elevated at 570 procalcitonin is within normal range but detectable at 0.610 urinalysis shows 2+ protein 1+ glucose negative ketone blood nitrates leukocyte esterase and microscopic exam shows no red blood cells occasional white cells occasional epithelial cells trace bacteria. My informal interpretation of his plain film chest x-ray shows no acute processes. Ultrasound shows cholelithiasis without evidence of cholecystitis including pericholecystic fluid or gallbladder wall thickening prior to radiology read. I considered ordered CT contrasted imaging however given patient's renal function I have declined at this time as utility of noncontrasted imaging is very limited and will not belt changer today. However hospital medicine wished to order a noncontrasted study which I did do and my informal interpretation of same shows no acute processes given the limitations of the study. I considered sepsis bolus but given patient's cardiac history and the fact that he is hemodynamically stable without tachycardia and remained so after reevaluation I deferred sepsis bolus. Given this I had an interactive discussion with Dr. Tan of gastroenterology about patient management. Patient will need to be off of his Eliquis for 48 hours prior to any intervention. Thus patient will likely be unfit from ERCP on Friday. Given that I have had an interactive discussion with hospital medicine regarding patient management and he will be admitted for further evaluation and care. <Kendell Broussard MD - Last Filed: 03/26/24 23:15> Vital Signs: 03/26/24 14:29 03/26/24 15:00 03/26/24 15:30 Temperature 97.7 F Temperature Source Oral Pulse Rate 74 74 Pulse Rate [Apical] 76 Respiratory Rate 18 14 Blood Pressure 141/79 H 154/93 H Blood Pressure [Left Arm] 148/93 H Blood Pressure Mean [Left Arm] 111 Blood Pressure Source [Left Arm] Automatic Cuff Blood Pressure Position [Left Arm] Sitting 02 Sat by Pulse Oximetry 97 95 97 Oxygen Delivery Method Room Air Room Air Room Air 03/26/24 17:30 03/26/24 17:52 03/26/24 18:00 Temperature 98.5 F Temperature Source Pulse Rate 81 86 95 H Pulse Rate [Apical] Respiratory Rate 16 20 17 Blood Pressure 138/90 126/84 143/86 H Blood Pressure [Left Arm] Blood Pressure Mean [Left Arm] Blood Pressure Source [Left Arm] Blood Pressure Position [Left Arm] 02 Sat by Pulse Oximetry 96 96 Oxygen Delivery Method Room Air Room Air Room Air 03/26/24 18:03 03/26/24 18:30 Temperature 97.9 F Temperature Source Oral Pulse Rate 75 80 Pulse Rate [Apical] Respiratory Rate 18 12 Blood Pressure 143/86 H 134/83 Blood Pressure [Left Arm] Blood Pressure Mean [Left Arm] Blood Pressure Source [Left Arm] Blood Pressure Position [Left Arm] 02 Sat by Pulse Oximetry 96 Oxygen Delivery Method Room Air Lab Data Lab Results 03/26/24 14:30: WBC 18.5 H, RBC 4.92, Hgb 16.9, Hct 48.6, MCV 98.8 H, MCH 34.3 H , MCHC 34.8, RDW 12.2, Plt Count 210, MPV 11.0 H, Neut % (Auto) 86.9 H, Lymph % (Auto) 3.9 L, [place] % (Auto) 6.4, Eos % (Auto) 0.7, Baso % (Auto) 0.4, Neut # (Auto) 16.1 H, Lymph # (Auto) 0.7, [place] # (Auto) 1.2 H, Eos # (Auto) 0.1, Baso # (Auto) 0.1, Total Counted 100, Neutrophils % (Manual) 91 H, Lymphocytes % (Manual) 5 L, Monocytes % (Manual) 3, Eosinophils % (Manual) 1, Platelet Estimate Normal, RBC Morphology Normal, Sodium 130 L, Potassium 5.4 H, Chloride 102, Carbon Dioxide 26, Anion Gap 7.4, BUN 37 H, Creatinine 2.30 H, Estimated Creat Clear 37, Estimated GFR 28 L, Est GFR ( Amer) 34 L, Glucose 278 H, Calcium 8.9, Magnesium 2.2, Total Bilirubin 1.4 H, AST 85 H, ALT 110 H, Alkaline Phosphatase 101, Troponin I < 0.01, NT-Pro-B Natriuret Pep 260, Total Protein 7.4, Albumin 4.5, Globulin 2.9, Albumin/Globulin Ratio 1.6, Lipase 570 H, Procalcitonin 0.610, HIV Ag/Ab Combo Qual Negative 03/26/24 15:27: Urine Color Yellow, Urine Appearance Sl cloudy, Urine pH 6.0, Ur Specific [place] >= 1.030, Urine Protein 2+ A, Urine Glucose (UA) 1+, Urine Ketones Negative, Urine Blood Negative, Urine Nitrate Negative, Urine Bilirubin Negative, Urine Urobilinogen 0.2, Ur Leukocyte Esterase Negative, Urine RBC None, Urine WBC Occasional, Ur Squamous Epith Cells Occasional, Urine Bacteria Trace, Fine Granular Casts 3-5 12/20/24 18:10: Troponin I < 0.01 Orders (Tests/Meds): ED MEDICATIONS Generic Name Dose Route Start Last Admin Trade Name Freq PRN Reason Stop Dose Admin Acetaminophen 650 mg 03/26/24 18:47 Acetaminophen 325mg Tab PO 04/25/24 18:46 Q4HP PRN Fever or Mild Pain (1-3) Atorvastatin Calcium 80 mg 03/26/24 21:00 03/26/24 21:02 Atorvastatin 40mg Tablet PO 04/25/24 20:59 80 mg HS ALINE Administration Diltiazem HCl 240 mg 03/27/24 09:00 Diltiazem Er 240mg Capsule PO 04/26/24 08:59 DAILY ALINE Enoxaparin Sodium 40 mg 03/27/24 09:00 Enoxaparin 40mg/0.4ml Syringe SUBCUT 04/26/24 08:59 DAILY ALINE Sodium Chloride 1,000 mls @ 75 mls/hr 03/26/24 19:00 03/26/24 21:01 Sod Chlor 0.9% 1000ml Bag IV 04/25/24 18:59 75 mls/hr .[id number] ALINE Administration Piperacillin Sod/Tazobactam 50 mls @ 100 mls/hr 03/26/24 20:15 03/26/24 21:01 Sod 3.375 gm/ Sodium Chloride IV 04/05/24 20:14 100 mls/hr Q8H ALINE Administration Insulin Human Lispro 0 unit 03/26/24 21:00 03/26/24 21:02 Humalog 100 Units/Ml 10ml Vial (Ssi) SUBCUT 04/25/24 20:59 4 unit ACHS ALINE Administration Protocol Metoprolol Succinate 100 mg 03/26/24 21:00 03/26/24 21:03 Metoprolol Succinate Xl 100mg Tablet PO 04/25/24 20:59 100 mg HS ALINE Administration Morphine Sulfate 2 mg 03/26/24 18:47 Morphine 2mg/Ml Syringe IV 04/25/24 18:46 Q4HP PRN Moderate Pain (4-6) Morphine Sulfate 4 mg 03/26/24 18:47 Morphine 4mg/Ml Syringe IV 04/25/24 18:46 Q4HP PRN Severe Pain (7-10) Non-Formulary Medication 200 mg 03/27/24 09:00 Metoprolol Succinate PO 04/26/24 08:59 DAILY ALINE Ondansetron HCl 4 mg 03/26/24 18:47 Ondansetron 4mg/2ml Vial IV 04/25/24 18:46 Q8HP PRN Nausea Pantoprazole Sodium 40 mg 03/26/24 21:00 03/26/24 21:02 Pantoprazole 40mg Tablet PO 04/25/24 20:59 40 mg BID ALINE Administration Sodium Chloride 10 ml 03/26/24 18:47 Sodium Chloride 0.9% 10ml Flush Syringe IV 04/25/24 18:46 NEEDED PRN Maintain IV Site Discontinued Medications Generic Name Dose Route Start Last Admin Trade Name Freq PRN Reason Stop Dose Admin Acetaminophen 650 mg 03/26/24 19:44 Acetaminophen 325mg Tab PO 04/25/24 19:43 Q6HP PRN Fever or Mild Pain (1-3) Piperacillin Sod/Tazobactam 50 mls @ 100 mls/hr 03/26/24 17:08 03/26/24 17:34 Sod 3.375 gm/ Sodium Chloride IV 03/26/24 17:37 100 mls/hr ONCE ONE Administration Sodium Chloride 1,000 mls @ 999 mls/hr 03/26/24 17:11 03/26/24 17:34 Sod Chlor 0.9% 1000ml Bag IV 03/26/24 18:11 999 mls/hr .Q1H1M ONE Administration Ondansetron HCl 4 mg 03/26/24 14:59 03/26/24 15:08 Ondansetron 4mg/2ml Vial IV 03/26/24 15:00 4 mg ONCE ONE Administration ORDERS Category Date Time Status CT abdomen pelvis wo con Stat Cat Scan 03/26/24 17:07 Completed Chest XR 2 view (NOT portable) [XR chest 2V] Stat Exams 03/26/24 15:00 Completed BNP [NT Pro Brain Natriuretic Pep.] Stat Lab 03/26/24 14:30 Completed CBC w/Auto Diff [Complete Blood Count Auto Diff] Stat Lab 03/26/24 14:30 Completed CMP [Comprehensive Metabolic Panel] Stat Lab 03/26/24 14:30 Completed Complete Blood Count Auto Diff AMLAB Lab 03/27/24 06:00 Ordered Complete Blood Count Auto Diff AMLAB Lab 03/28/24 06:00 Ordered Complete Blood Count Auto Diff AMLAB Lab 03/29/24 06:00 Ordered Complete Blood Count Auto Diff AMLAB Lab 03/30/24 06:00 Ordered Complete Blood Count Auto Diff AMLAB Lab 03/31/24 06:00 Ordered Comprehensive Metabolic Panel AMLAB Lab 03/27/24 06:00 Ordered Comprehensive Metabolic Panel AMLAB Lab 03/28/24 06:00 Ordered Comprehensive Metabolic Panel AMLAB Lab 03/29/24 06:00 Ordered Comprehensive Metabolic Panel AMLAB Lab 03/30/24 06:00 Ordered Comprehensive Metabolic Panel AMLAB Lab 03/31/24 06:00 Ordered HIV Combo Stat Lab 03/26/24 14:30 Completed Lipase Stat Lab 03/26/24 14:30 Completed Magnesium AMLAB Lab 03/27/24 06:00 Ordered Magnesium AMLAB Lab 03/28/24 06:00 Ordered Magnesium AMLAB Lab 03/29/24 06:00 Ordered Magnesium AMLAB Lab 03/30/24 06:00 Ordered Magnesium AMLAB Lab 03/31/24 06:00 Ordered Magnesium Stat Lab 03/26/24 14:30 Completed Procalcitonin Stat Lab 03/26/24 14:30 Completed Trop I [Troponin I] Stat Lab 03/26/24 14:30 Completed Troponin I Q3H Lab 03/26/24 18:10 Completed Troponin I Q3H Lab 03/26/24 20:55 Completed UA [Urinalysis and Microscopic] Stat Lab 03/26/24 15:27 Completed Blood Culture Stat Micro 03/26/24 17:15 Received US abdomen complete Stat Ultrasound 03/26/24 15:36 Completed HEART Score HEART Score: 5 Critical Care <JEANNE Fontanez - Last Filed: 03/26/24 18:06> Critical Care Time Critical Care Time: Yes Attestation: On 03/26/24, the high probability of a clinically significant, sudden or life threatening deterioration of the following system(renal, cardiovascular) required my full and direct attention, intervention and personal management. The time I documented below is in addition to time spent performing reported procedures but includes the following listed in this critical care notation. Fluid resuscitation for sepsis without septic and also for acute on chronic renal failure. Total Time Total Critical Care Time: 30
--- NOTE | 2024-03-26 15:00 | XR_ITS ---
FINAL REPORT CLINICAL HISTORY: Left anterior chest pain COMPARISON: 08/08/2022 FINDINGS: There are chronic interstitial changes in the lung bases, left greater than right. Findings are similar to previous. No acute pulmonary density is evident. There is no evidence of effusion or other pleural disease. The mediastinum has a normal appearance. The cardiac silhouette is unremarkable. IMPRESSION: No acute findings. Reviewed, Interpreted and Dictated by Dev Martinez MD Transcribed by Yue Machado Authenticated and [facility]
[2024-03-26] MEDS: ONDANSETRON 4MG/2ML VIAL 4 MG IV (15:08)
[2024-03-26 15:09] LABS: Albumin Level 4.5 g/dl (3.5-5.0); Chloride 102 mmol/L (98-107); Sodium 130 mmol/L (136-145)
--- NOTE | 2024-03-26 15:09 | PC.NURSE ---
PT TO XR
[2024-03-26 15:10] LABS: Potassium 5.4 mmoL/L (3.5-5.1)
[2024-03-26 15:12] LABS: Alanine Aminotransferase 110 U/L (12-78); Albumin/Globulin Ratio 1.6 (1.1-1.8); Alkaline Phosphatase 101 U/L (38-126); Anion Gap 7.4 mEq/L (5-15); Aspartate Amino Transferase 85 U/L (17-59); Bilirubin,Total 1.4 mg/dl (0.2-1.3); Blood Urea Nitrogen 37 mg/dl (9-20); Carbon Dioxide 26 mmol/L (22.0-30.0); Creatinine Clearance Estimated 37 mL/min (50-200); Estimated Glomerular Filt Rate 28 ml/min (>60); GFR (African American) 34 ML/MIN (>60); Globulin 2.9 g/dL (1.3-3.2); Total Protein,Serum 7.4 g/dl (6.3-8.2)
[2024-03-26 15:13] LABS: Calcium 8.9 mg/dl (8.4-10.2); Glucose 278 mg/dl (74-100); Lipase 570 U/L (23-300); Magnesium 2.2 mg/dl (1.6-2.3)
[2024-03-26 15:23] LABS: NT Pro Brain Natriuretic Pep. 260 pg/mL (0-450)
[2024-03-26 15:32] LABS: Microscopic, Urine URINE MICROSCOPIC (MICROSCOPIC)
[2024-03-26 15:32] LABS: Troponin I < 0.01 ng/ml (0.00-0.034)
[2024-03-26 15:36] LABS: Appearance,Urine SL CLOUDY (Clear); Bilirubin,Urine Negative (Negative); Blood, Urine Negative (Negative); Color,Urine YELLOW (Yellow); Glucose,Urine (UA) 1+ (Negative); Ketones,Urine Negative (Negative); Leukocyte Esterase,Urine Negative (Negative); Nitrate,Urine Negative (Negative); Protein,Urine 2+ (Negative); Specific Gravity, Urine >= 1.030 (1.005-1.030); Urobilinogen,Urine 0.2 EU/dl (0.2)
[2024-03-26 15:36] LABS: HIV Combo NEGATIVE (Negative)
--- NOTE | 2024-03-26 15:36 | US_ITS ---
PROCEDURE INFORMATION: Exam: US Abdomen Complete Exam date and time: 03/26/2024 3:51 PM Age: 74 years old Clinical indication: Abdominal pain; Other: Ruq pain; Additional info: Abd pain, transaminitis, pancreatitis TECHNIQUE: Imaging protocol: Real-time ultrasound of the abdomen with image documentation. Complete exam. COMPARISON: US ABDOMEN COMPLETE 03/26/2024 3:51 PM FINDINGS: Liver: Coarse, echogenic hepatic echotexture, compatible with hepatic steatosis and/or hepatocellular disease. Gallbladder: Echogenic, shadowing focus within the gallbladder measuring approximately 6 mm in diameter, compatible with calcified gallstone. Gallbladder mildly distended, measuring 7.2 cm in sagittal dimension. Gallbladder wall measures 3 mm in thickness. Biliary ducts: Common bile duct measures 4-5 mm in diameter. Pancreas: Visualized pancreas is unremarkable. Right kidney: Right kidney normal in appearance and measures 12.2 cm in length. Left kidney: Normal. No mass. No hydronephrosis. Spleen: Normal. No splenomegaly. Aorta: Normal. No aneurysm. Inferior vena cava: Normal. IMPRESSION: Cholelithiasis, with mild gallbladder distension. No gallbladder wall thickening or pericholecystic fluid. No biliary dilation.
[2024-03-26 15:43] LABS: Basophils # 0.1 K/mm3 (0-0.2); Basophils % 0.4 % (0.1-2.0); Eosinophils # 0.1 K/mm3 (0.0-0.4); Eosinophils % 0.7 % (0.1-12.0); Hematocrit 48.6 % (42.0-52.0); Hemoglobin 16.9 g/dL (14.1-18.0); Lymphocytes # 0.7 K/mm3 (0.7-4.5); Lymphocytes % 3.9 % (10-50); Mean Corpuscular HGB Conc 34.8 g/dL (31.8-35.4); Mean Corpuscular Hemoglobin 34.3 pg (27.0-31.2); Mean Corpuscular Volume 98.8 fl (80-94); Monocytes # 1.2 K/mm3 (0.1-1.0); Monocytes % 6.4 % (1.7-9.3); Neutrophils # 16.1 K/mm3 (1.8-7.8); Neutrophils % 86.9 % (37.0-80.0); Platelet Count 210 K/mm3 (142-424); Red Blood Count 4.92 M/mm3 (4.60-6.20); Red Cell Distribution Width 12.2 % (11.5-17.5); White Blood Count 18.5 K/mm3 (4.8-10.8)
[2024-03-26 15:44] LABS: MANUAL DIFFERENTIAL MANUAL DIFFERENTIAL (MANUAL DIFF)
[2024-03-26 15:45] LABS: Bacteria,Urine Trace /lpf; Squamous Epithelial Cell,Urine Occasional #/hpf (0-5); WBC,Urine Occasional #/hpf (0-3)
--- NOTE | 2024-03-26 17:07 | CT_ITS ---
PROCEDURE INFORMATION: Exam: CT Abdomen And Pelvis Without Contrast Exam date and time: 03/26/2024 5:23 PM Age: 74 years old Clinical indication: Abnormal findings; Abnormal lab test; Elevated lipase; Additional info: Leukocytosis and elevated lipase TECHNIQUE: Imaging protocol: Computed tomography of the abdomen and pelvis without contrast. Radiation optimization: All CT scans at this facility use at least one of these dose optimization techniques: automated exposure control; mA and/or kV adjustment per patient size (includes targeted exams where dose is matched to clinical indication); or iterative reconstruction. COMPARISON: CT ABDOMEN PELVIS W CON 11/17/2023 7:36 PM FINDINGS: Lungs: Mild bilateral lower lobe bronchial wall thickening, compatible with reactive airway disease or bronchitis. Minimal bibasilar atelectasis and scarring. Coronary arteries: Three-vessel coronary artery atherosclerotic disease. Liver: Normal. Gallbladder and biliary ducts: Cholelithiasis. Pancreas: Normal. Spleen: Normal. Adrenal glands: Mild bilateral adrenal hyperplasia. Kidneys and ureters: Normal. Stomach and bowel: Colonic diverticulosis Appendix: Appendix normal. Intraperitoneal space: Unremarkable. No free air. No significant fluid collection. Vasculature: Phleboliths within the pelvis. Atherosclerotic disease of the abdominal aorta and iliac arteries. Lymph nodes: Unremarkable. No enlarged lymph nodes. Urinary bladder: Unremarkable as visualized. Reproductive: Unremarkable as visualized. Bones/joints: Multilevel thoracolumbar spine degenerative disc space narrowing and osteophyte formation. Soft tissues: Surgical changes of prior bilateral inguinal hernia repair. IMPRESSION: 1. No acute abdominal or pelvic abnormality. 2. Mild bilateral lower lobe bronchial wall thickening, compatible with reactive airway disease or bronchitis.
[2024-03-26 17:12] LABS: Eosinophils % 1 % (0-3); Lymphocytes % 5 % (10-50); Monocytes % 3 % (2-9); Neutrophils % 91 % (42-76); Total Cells Counted 100
[2024-03-26 17:13] LABS: Platelet Estimate Normal; RBC Morphology Normal
[2024-03-26] MEDS: PIPERCILLIN/TAZO 3.375 GM in 0.9 % SODIUM CHLORIDE 50 ML IV (17:34)
[2024-03-26] MEDS: 0.9 % SODIUM CHLORIDE 1000ML 1,000 ML 999 ML IV (17:34)
--- NOTE | 2024-03-26 17:52 | PC.NURSE ---
hs aware of admission
--- NOTE | 2024-03-26 18:03 | PC.NURSE ---
REPORT CALLED TO SUDARSHAN OLIVARES
[2024-03-26 18:45] LABS: Troponin I < 0.01 ng/ml (0.00-0.034)
--- NOTE | 2024-03-26 18:55 | PC.NURSE ---
Pt. arrived on floor.
--- NOTE | 2024-03-26 19:39 | PC.NURSE ---
Patient arrived to floor via wheelchair from ED at 18:52.
--- NOTE | 2024-03-26 20:06 | P.HP_ITS ---
<Statement entered by Leonidas Herron MD - 04/04/24 13:10> Rounded on patient after nurse practitioner. ?Personally examined and interviewed patient. Agree with exam findings and care plan as documented. History of Present Illness *Admission Date: 03/26/24 *Reason for visit:: Left sided chest pain, nausea, vomiting, diarrhea *History of present illness: Mr. Alvarado is a 74-year-old male with a past medical history of Atrial Fibrillation on chronic anticoagulation, Diabetes Mellitus, Hypertension. [facility] with a 10-day history of left sided epigastric pain associated with nausea, vomiting and diarrhea. He denies known similar sick contacts. He reports that the pain persisted and worsened, prompting him to come into the ER for evaluation. In the ER, the patient underwent a CT of the abdomen and pelvis that showed Cholelithasis, US of the gallbladder showed cholelithiasis with mild gallbladder distention. CBC showed an elevated WBC of 18.5. CMP showed a sodium of 130, Creatinine of 2.30, Glucose was 278. In the ER, the patient received: Zosyn 3.375 grams iv x 1, Morphine 4 mg iv x 1. The patient is admitted with initial impression: Cholelithiasis, Transminitis, Acute Kidney Injury Superimposed on CKD. [facility] Disclaimer: The information contained in this section may have been updated after the patient was seen, as this information can be updated by other users. Medical History Coronary artery disease Abdominal pain MARY (acute kidney injury) CKD (chronic kidney disease) Diabetes 1.5, managed as type 2 Acute hyperkalemia Fatty infiltration of liver Elbow pain History of rectal fissure Cirrhosis of liver Hepatic cirrhosis Abdominal pain Pneumonia ETD (eustachian tube dysfunction) Hypertrophy of both inferior nasal turbinates Unilateral hearing loss Nasal septal deviation Rib pain Skin infection Cough Smoking Tobacco abuse counseling Sinusitis Anal fissure History of hemorrhoids Renal insufficiency Prostate cancer GERD (gastroesophageal reflux disease) Torn Achilles tendon COPD (chronic obstructive pulmonary disease) Bronchitis Hyperlipidemia associated with type 2 diabetes mellitus Diabetes type 2, controlled Hypertension associated with diabetes Surgical History History of coronary artery stent placement History of prostate surgery Hx of hemorrhoidectomy History of hand surgery History of hernia repair History of colonoscopy History of tonsillectomy Family History Father Cancer Heart attack Stroke Mother Heart attack Stroke Social History Smoking Status: Current every day smoker tobacco type: cigarettes packs per day: 1 alcohol intake: never substance use type: denies use current occupational status: retired Travel in the last 8 weeks: None household members: spouse housing: house marital status: education level: vocational service: No caffeine: Yes special roxanne needs: No do you feel safe at home: Yes victim of physical abuse: No victim of emotional abuse: No victim of sexual abuse: No would you like helpful sources: No Have you lived/traveled outside [place] in past 30 days?: No Contact w/someone who lives/traveled outside US past 30 days?: No Exposure to someone with infectious disease in past 14 days?: No Do you have a fever (greater than 100.4 F or 38 C)?: No Have you tested positive for COVID-19: No Exposed to someone with COVID-19 in past 14 days?: No Do you have a sore throat?: No Do you have a cough?: Yes Do you have any weakness?: Yes Do you have any diarrhea?: Yes Are you experiencing any unusual bleeding?: No Do you have any muscle aches/pain?: Yes Do you have any abdominal pain?: Yes Are you experiencing loss of taste or smell?: No Other Medical History Have you received the Flu Vaccine for this season: No Have you received the Pneumonia Vaccine: No Review of Systems Review of Systems Review of systems:: pertinent systems reviewed and negative unless documented below Constitutional Constitutional: Reports system reviewed and no additional complaints, except as documented Eyes Eyes: Reports system reviewed and no additional complaints, except as documented ENT Ears, Nose, Mouth, and Throat: Reports system reviewed and no additional complaints, except as documented *Cardiovascular Cardiovascular: Reports system reviewed and no additional complaints, except as documented *Respiratory Respiratory: Reports system reviewed and no additional complaints, except as documented *Gastrointestinal Gastrointestinal: Reports abdominal pain, Reports loose stools, Reports nausea and Reports vomiting *Genitourinary Genitourinary: Reports system reviewed and no additional complaints, except as documented *Musculoskeletal Musculoskeletal: Reports system reviewed and no additional complaints, except as documented Integumentary/Breasts Skin/Breast: Reports system reviewed and no additional complaints, except as documented *Neurologic Neurologic: Reports system reviewed and no additional complaints, except as documented Psychiatric Psychiatric: Reports system reviewed and no additional complaints, except as documented Endocrine Endocrine: Reports system reviewed and no additional complaints, except as documented Hematologic/Lymphatic Hematologic/Lymphatic: Reports system reviewed and no additional complaints, except as documented Allergic/Immunologic Allergic/Immunologic: Reports system reviewed and no additional complaints, except as documented Meds Home Medications and Allergies Home Medications ?Medication ?Instructions ?Recorded ?Confirmed ?Type apixaban 5 mg tablet (Eliquis) 5 mg PO BID 30 days #60 tabs 12/18/23 03/26/24 Rx diltiazem HCl 240 mg 240 mg PO DAILY 30 days #30 caps 12/18/23 03/26/24 Rx capsule,extended release 24 hr glipizide 10 mg tablet 10 mg PO BID #60 tabs 12/18/23 03/26/24 Rx hydrochlorothiazide 25 mg tablet 25 mg PO DAILY 30 days #30 tabs 12/18/23 03/26/24 Rx metoprolol succinate 100 mg 100 mg PO HS 30 days #30 tabs 12/18/23 03/26/24 Rx tablet,extended release 24 hr metoprolol succinate 200 mg 200 mg PO DAILY #30 tabs 12/18/23 03/26/24 Rx tablet,extended release 24 hr pantoprazole 40 mg tablet,delayed 40 mg PO BID #60 tabs 12/18/23 03/26/24 Rx release rosuvastatin 40 mg tablet 40 mg PO DAILY #30 tabs 12/18/23 03/26/24 Rx semaglutide 7 mg tablet (Rybelsus) 7 mg PO DAILY #30 tabs 12/18/23 03/26/24 Rx sitagliptin phosphate 50 1 tab PO BID #60 tabs 12/18/23 03/26/24 Rx mg-metformin 1,000 mg tablet (Janumet) prasugrel 10 mg tablet (Effient) 10 mg PO DAILY 30 days #30 tabs 01/09/24 03/26/24 Rx spironolactone 25 mg tablet 25 mg PO DAILY #30 tabs 02/24/24 03/26/24 Rx (Aldactone) New Prescriptions to Start Prescriptions: Allergies Allergy/AdvReac Type Severity Reaction Status Date / Time No Known Allergies Allergy Verified 03/23/24 09:04 Exam Data for Last 24 hours Vital signs and Labs for Last 24 Hours: Temp Pulse Resp BP Pulse Ox O2 Del Method 97.6 F 78 20 143/79 H 94 L Room Air 03/26/24 18:52 03/26/24 18:52 03/26/24 18:52 03/26/24 18:52 03/26/24 18:52 03/26/24 18:56 Laboratory Results - last 24 hr 03/26/24 14:30: WBC 18.5 H, RBC 4.92, Hgb 16.9, Hct 48.6, MCV 98.8 H, MCH 34.3 H , MCHC 34.8, RDW 12.2, Plt Count 210, MPV 11.0 H, Neut % (Auto) 86.9 H, Lymph % (Auto) 3.9 L, [place] % (Auto) 6.4, Eos % (Auto) 0.7, Baso % (Auto) 0.4, Neut # (Auto) 16.1 H, Lymph # (Auto) 0.7, [place] # (Auto) 1.2 H, Eos # (Auto) 0.1, Baso # (Auto) 0.1, Total Counted 100, Neutrophils % (Manual) 91 H, Lymphocytes % (Manual) 5 L, Monocytes % (Manual) 3, Eosinophils % (Manual) 1, Platelet Estimate Normal, RBC Morphology Normal, Sodium 130 L, Potassium 5.4 H, Chloride 102, Carbon Dioxide 26, Anion Gap 7.4, BUN 37 H, Creatinine 2.30 H, Estimated Creat Clear 37, Estimated GFR 28 L, Est GFR ( Amer) 34 L, Glucose 278 H, Calcium 8.9, Magnesium 2.2, Total Bilirubin 1.4 H, AST 85 H, ALT 110 H, Alkaline Phosphatase 101, Troponin I < 0.01, NT-Pro-B Natriuret Pep 260, Total Protein 7.4, Albumin 4.5, Globulin 2.9, Albumin/Globulin Ratio 1.6, Lipase 570 H, Procalcitonin 0.610, HIV Ag/Ab Combo Qual Negative 03/26/24 15:27: Urine Color Yellow, Urine Appearance Sl cloudy, Urine pH 6.0, Ur Specific Glady >= 1.030, Urine Protein 2+ A, Urine Glucose (UA) 1+, Urine Ketones Negative, Urine Blood Negative, Urine Nitrate Negative, Urine Bilirubin Negative, Urine Urobilinogen 0.2, Ur Leukocyte Esterase Negative, Urine RBC None, Urine WBC Occasional, Ur Squamous Epith Cells Occasional, Urine Bacteria Trace, Fine Granular Casts 3-5 03/26/24 18:10: Troponin I < 0.01 I & O for Last 24 hours: Intake & Output 03/23/24 03/24/24 03/25/24 03/26/24 23:59 23:59 23:59 23:59 Weight 92.533 kg Constitutional Constitutional: no acute distress *Routine HEENT Exam Head: Present normocephalic Eye: Present EOMI and PERRL ENT: Present mucous membranes dry *Routine Neck Exam Neck: Present supple and full ROM *Routine Respiratory Exam Respiratory: Present CTA bilaterally *Routine Cardiovascular Exam Cardiovascular: Present RRR, Normal S1 and Normal S2 *Routine Abdominal Exam Abdominal: Present soft, normoactive bowel sounds and tenderness (TTP upper abdominal quadrants ) *Routine Rectal Exam Rectal:: deferred *Routine Genitalia Exam Genitalia:: deferred *Routine Skin Exam Skin: Present intact and dry *Routine Neurological Exam Neurological: Present alert, oriented X3 and CN II-XII intact Assessment and Plan *Assessment and plan (1) Cholelithiasis: Status: Acute Category: Medical Code(s): K80.20 - Calculus of gallbladder without cholecystitis without obstruction (2) Acute kidney injury superimposed on CKD: Status: Acute Category: Medical Code(s): N17.9 - Acute kidney failure, unspecified; N18.9 - Chronic kidney disease, unspecified (3) Acute pancreatitis: Status: Acute Qualifiers: Acute pancreatitis complication: unspecified Pancreatitis type: unspecified pancreatitis type Qualified Code(s): K85.90 - Acute pancreatitis without necrosis or infection, unspecified Category: Medical Code(s): K85.90 - Acute pancreatitis without necrosis or infection, unspecified (4) PAF (paroxysmal atrial fibrillation): Status: Acute Category: Medical Code(s): I48.0 - Paroxysmal atrial fibrillation (5) Type 2 diabetes mellitus: Status: Acute Qualifiers: Diabetes mellitus complication detail: with other circulatory complications Diabetes mellitus complication status: with circulatory complication 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 insulin use: with group home use Qualified Code(s): E11.59 - Type 2 diabetes mellitus with other circulatory complications; Z79.4 - 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 dispatcher (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 insulin Category: Medical Code(s): E11.9 - Type 2 diabetes mellitus without complications Plan 74-year-old male with past medical history of Atrial Fibrillation on chronic anticoagulation, Type II DM, Hypertension who presents with a 10-day history of left sided epigastric pain associated with nausea, vomiting and diarrhea - Cholelithiasis Presents with a 10-day history of left sided epigastric pain associated with nausea, vomiting and diarrhea CT of the abdomen and pelvis showed cholelithiasis US of the abdomen showed mild gallbladder distention with cholelithiasis Lipase and LFTs elevated Continue Zosyn Plan for GI to see on 03/29 for MRCP, and ERCP if needed Holding Anticoagulation - Transaminitis Associated with above Check Hepatitis Panel Plan for evaluation by GI on 03/29 with hyperbilirubemenia Plan for MRCP for evaluation - Acute Kidney Injury Superimposed on CKD Most recent baseline creatinine 1.5 range Presents with a creatinine of 2.30 associated with nausea, vomiting and diarrhea Appears hypovolemic on exam Will hold diuretics Giving low dose fluids, monitoring and avoiding medications that could worsen GFR - Acute Pancreatitis Associated with Gallstones Clear liquid diet Pain medications - Atrial Fibrillation Continue home dose of Cardizem and Metoprolol Holding Anticoagulation as directed by GI - Type II DM Will add sliding scale Monitor GI ppx: Home dose Protonix DVT ppx on hold due to upcoming procedure
[2024-03-26 20:53] LABS: POC Glucose,Bedside 207 (70-110)
[2024-03-26] MEDS: PIPERACILLIN/TAZO 3.375 GM in 0.9 % SODIUM CHLORIDE 50 ML IV (21:01)
[2024-03-26] MEDS: 0.9 % SODIUM CHLORIDE 1000ML 1,000 ML 75 ML IV (21:01)
[2024-03-26] MEDS: ATORVASTATIN 40MG TABLET 80 MG PO (21:02)
[2024-03-26] MEDS: PANTOPRAZOLE 40MG TABLET 40 MG PO (21:02)
[2024-03-26] MEDS: humaLOG 100 UNITS/ML 10ML VIAL (SSI) SUBCUT (21:02)
[2024-03-26] MEDS: METOPROLOL SUCCINATE XL 100MG TABLET 100 MG PO (21:03)
[2024-03-26 21:21] LABS: Troponin I < 0.01 ng/ml (0.00-0.034)
[2024-03-27 04:00] VITALS: BP 133/73; PULSE 76; RESP 18; TEMP 36.9; O2SAT 96; BMI 28.4
[2024-03-27] MEDS: PIPERACILLIN/TAZO 3.375 GM in 0.9 % SODIUM CHLORIDE 50 ML IV ×2 (05:05→12:04)
[2024-03-27 05:22] LABS: POC Glucose,Bedside 155 (70-110)
[2024-03-27] MEDS: humaLOG 100 UNITS/ML 10ML VIAL (SSI) SUBCUT (05:22)
[2024-03-27] MEDS: guaiFENesin 200MG/10ML SYRUP UDC 100 MG PO ×2 (05:32→12:10)
--- NOTE | 2024-03-27 05:56 | PC.NURSE ---
Pt A&OX4 and has tolerated room air. Pt has tolerated diet and has denied any n/v or abdominal pain. He has had a dry cough and was medicated per MAR. He has ambulated to the bathroom independently. No complaints at this time, call light within reach.
[2024-03-27 07:03] LABS: Albumin Level 3.5 g/dl (3.5-5.0); Chloride 108 mmol/L (98-107); Hematocrit 42.3 % (42.0-52.0); Mean Corpuscular Hemoglobin 33.3 pg (27.0-31.2); Mean Corpuscular Volume 97.9 fl (80-94); Platelet Count 179 K/mm3 (142-424); Potassium 4.7 mmoL/L (3.5-5.1); Red Blood Count 4.32 M/mm3 (4.60-6.20); Red Cell Distribution Width 12.3 % (11.5-17.5); Sodium 131 mmol/L (136-145); White Blood Count 13.4 K/mm3 (4.8-10.8)
[2024-03-27 07:04] LABS: Basophils # 0.1 K/mm3 (0-0.2); Basophils % 0.4 % (0.1-2.0); Eosinophils # 0.1 K/mm3 (0.0-0.4); Lymphocytes # 0.9 K/mm3 (0.7-4.5); Mean Platelet Volume 10.8 fl (7.4-10.4); Monocytes % 7.6 % (1.7-9.3); Neutrophils # 11.1 K/mm3 (1.8-7.8)
[2024-03-27 07:05] LABS: Blood Urea Nitrogen 28 mg/dl (9-20); Creatinine Clearance Estimated 43 mL/min (50-200); Estimated Glomerular Filt Rate 33 ml/min (>60); GFR (African American) 40 ML/MIN (>60)
[2024-03-27 07:06] LABS: Alanine Aminotransferase 86 U/L (12-78); Albumin/Globulin Ratio 1.3 (1.1-1.8); Alkaline Phosphatase 96 U/L (38-126); Anion Gap 5.7 mEq/L (5-15); Aspartate Amino Transferase 66 U/L (17-59); Bilirubin,Total 1.3 mg/dl (0.2-1.3); Calcium 8.4 mg/dl (8.4-10.2); Carbon Dioxide 22 mmol/L (22.0-30.0); Globulin 2.6 g/dL (1.3-3.2); Glucose 149 mg/dl (74-100); Total Protein,Serum 6.1 g/dl (6.3-8.2)
[2024-03-27 07:13] LABS: Hemoglobin 14.4 g/dL (14.1-18.0)
[2024-03-27 07:37] VITALS: BP 139/69; PULSE 78; RESP 19; TEMP 36.6; O2SAT 94
--- NOTE | 2024-03-27 07:45 | HMH.PHAINT1 ---
Pharmacy Intervention Comments: Home medication list verified using list from outpatient pharmacy and cardiology office
[2024-03-27] MEDS: ENOXAPARIN 40MG/0.4ML SYRINGE 40 MG SUBCUT (08:33)
[2024-03-27] MEDS: dilTIAZem ER 240MG CAPSULE 240 MG PO (08:34)
[2024-03-27] MEDS: METOPROLOL SUCCINATE XL 100MG TABLET 200 MG PO (08:34)
[2024-03-27] MEDS: PANTOPRAZOLE 40MG TABLET 40 MG PO (08:34)
[2024-03-27 12:04] LABS: POC Glucose,Bedside 124 (70-110)
[2024-03-27] MEDS: IPRATROPIUM/ALBUTEROL 3 ML NEB IH (12:59)
[2024-03-27 13:00] VITALS: PULSE 72; PULSE 75; O2SAT 92
[2024-03-27] MEDS: POLYETHYLENE GLYCOL 3350 17 GM PACKET PO (13:51)
[2024-03-27] MEDS: predniSONE 20MG TAB 40 MG PO (13:52)
[2024-03-27] MEDS: BISACODYL 5MG TABLET 10 MG PO (13:52)
--- NOTE | 2024-03-27 13:52 | EXP.DC.SUM ---
General Admission date:: 03/26/24 HPI HPI HPI: Mr. Alvarado is a 74-year-old male with a past medical history of Atrial Fibrillation on chronic anticoagulation, Diabetes Mellitus, Hypertension. He presents to [facility] with a 10-day history of left sided epigastric pain associated with nausea, vomiting and diarrhea. He denies known similar sick contacts. He reports that the pain persisted and worsened, prompting him to come into the ER for evaluation. In the ER, the patient underwent a CT of the abdomen and pelvis that showed Cholelithasis, US of the gallbladder showed cholelithiasis with mild gallbladder distention. CBC showed an elevated WBC of 18.5. CMP showed a sodium of 130, Creatinine of 2.30, Glucose was 278. In the ER, the patient received: Zosyn 3.375 grams iv x 1, Morphine 4 mg iv x 1. The patient is admitted with initial impression: Cholelithiasis, Transminitis, Acute Kidney Injury Superimposed on CKD. Hospital Course Hospital Course Hospital Course: Kirby Alvarado is a 74-year-old male with past medical history of Atrial Fibrillation on chronic anticoagulation, Type II DM, Hypertension who presents with a 10-day history of left sided epigastric pain associated with nausea, vomiting and diarrhea. #Suspected gallstone pancreatitis ? Presents with a 10-day history of left sided epigastric pain associated with nausea, vomiting and diarrhea. ? CT of the abdomen and pelvis showed cholelithiasis. Done without contrast due to MARY. ? US of the abdomen showed mild gallbladder distention with cholelithiasis, without gallbladder wall thickening or pericholecystic fluid. ? Lipase mildly elevated to 570, with mild elevation of AST/ALT. ? Patient clinically improved with IV Zosyn, and advancing diet to low residue diet. Tolerated diet without nausea/vomiting, abdominal pain. ? In fact, patient has not needed pain or antiemetic medication since yesterday. ? GI consulted, initial plan was to perform MRCP and then ERCP if needed on Friday. ? However, patient is essentially back to baseline and asymptomatic. In addition, patient had coronary stents in December and ERCP would not be recommended unless emergent which is not the case at this time. ? Outpatient MRCP ordered, patient will be called to schedule it. ? Referred to GI, general surgery. #MARY on CKD #Hypertension ? Initial creatinine 2.3, improved to 2.0 today. Baseline around 1.5. Tolerating p.o. intake appropriately. ? Continue oral rehydration. ? Hold home hydrochlorothiazide, spironolactone for 1 week. BP currently stable. #A-fib ? Resume home Cardizem, metoprolol, Eliquis. #Type 2 diabetes ? Resume home regimen. Exam Data for Last 24 hours Vital signs and Labs for Last 24 Hours: Temp Pulse Resp BP Pulse Ox O2 Del Method 98 F 72 19 139/69 92 L Room Air 03/27/24 07:37 03/27/24 13:00 03/27/24 07:37 03/27/24 07:37 03/27/24 13:00 03/27/24 13:00 Laboratory Results - last 24 hr 03/26/24 14:30: WBC 18.5 H, RBC 4.92, Hgb 16.9, Hct 48.6, MCV 98.8 H, MCH 34.3 H, MCHC 34.8, RDW 12.2, Plt Count 210, MPV 11.0 H, Neut % (Auto) 86.9 H, Lymph % (Auto) 3.9 L, [place] % (Auto) 6.4, Eos % (Auto) 0.7, Baso % (Auto) 0.4, Neut # (Auto) 16.1 H, Lymph # (Auto) 0.7, [place] # (Auto) 1.2 H, Eos # (Auto) 0.1, Baso # (Auto) 0.1, Total Counted 100, Neutrophils % (Manual) 91 H, Lymphocytes % (Manual) 5 L, Monocytes % (Manual) 3, Eosinophils % (Manual) 1, Platelet Estimate Normal, RBC Morphology Normal, Sodium 130 L, Potassium 5.4 H, Chloride 102, Carbon Dioxide 26, Anion Gap 7.4, BUN 37 H, Creatinine 2.30 H, Estimated Creat Clear 37, Estimated GFR 28 L, Est GFR ( Amer) 34 L, Glucose 278 H, Calcium 8.9, Magnesium 2.2, Total Bilirubin 1.4 H, AST 85 H, ALT 110 H, Alkaline Phosphatase 101, Troponin I < 0.01, NT-Pro-B Natriuret Pep 260, Total Protein 7.4, Albumin 4.5, Globulin 2.9, Albumin/Globulin Ratio 1.6, Lipase 570 H, Procalcitonin 0.610, HIV Ag/Ab Combo Qual Negative 03/26/24 15:27: Urine Color Yellow, Urine Appearance Sl cloudy, Urine pH 6.0, Ur Specific [place] >= 1.030, Urine Protein 2+ A, Urine Glucose (UA) 1+, Urine Ketones Negative, Urine Blood Negative, Urine Nitrate Negative, Urine Bilirubin Negative, Urine Urobilinogen 0.2, Ur Leukocyte Esterase Negative, Urine RBC None, Urine WBC Occasional, Ur Squamous Epith Cells Occasional, Urine Bacteria Trace, Fine Granular Casts 3-5 03/26/24 18:10: Troponin I < 0.01 03/26/24 20:45: POC Glucose 207 H 03/26/24 20:55: Troponin I < 0.01 03/27/24 05:14: POC Glucose 155 H 03/27/24 06:42: WBC 13.4 H D, RBC 4.32 L, Hgb 14.4 D, Hct 42.3, MCV 97.9 H, MCH 33.3 H, MCHC 34.0, RDW 12.3, Plt Count 179, MPV 10.8 H, Neut % (Auto) 83.0 H, Lymph % (Auto) 7.0 L, [place] % (Auto) 7.6, Eos % (Auto) 1.0, Baso % (Auto) 0.4, Neut # (Auto) 11.1 H, Lymph # (Auto) 0.9, [place] # (Auto) 1.0, Eos # (Auto) 0.1, Baso # (Auto) 0.1, Sodium 131 L, Potassium 4.7, Chloride 108 H, Carbon Dioxide 22, Anion Gap 5.7, BUN 28 H, Creatinine 2.00 H, Estimated Creat Clear 43, Estimated GFR 33 L, Est GFR ( Amer) 40 L, Glucose 149 H D, Calcium 8.4, Total Bilirubin 1.3, AST 66 H, ALT 86 H, Alkaline Phosphatase 96, Total Protein 6.1 L, Albumin 3.5 D, Globulin 2.6, Albumin/Globulin Ratio 1.3 03/27/24 11:48: POC Glucose 124 H I & O for Last 24 hours: Intake & Output 03/24/24 03/25/24 03/26/24 03/27/24 23:59 23:59 23:59 23:59 Intake Total 1350 / 1350 Output Total 0 / 0 Balance 1350 / 1350 Weight 92.533 kg 95.254 kg Constitutional Constitutional: no acute distress *Routine HEENT Exam Head: Present normocephalic Eye: Present EOMI and PERRL ENT: Present mucous membranes moist *Routine Neck Exam Neck: Present supple; Absent lymphadenopathy *Routine Respiratory Exam Respiratory: Present CTA bilaterally *Routine Cardiovascular Exam Cardiovascular: Present RRR *Routine Abdominal Exam Abdominal: Present soft and normoactive bowel sounds; Absent tenderness *Routine Extremities Exam Extremities: Absent cyanosis, clubbing or edema *Routine Skin Exam Skin: Present warm; Absent rash *Routine Neurological Exam Neurological: Present alert and oriented X3 Results Data Completed and Pending Labs on day of discharge: Labs from last 24 hours 03/27/24 03/27/24 03/27/24 11:48 06:42 05:14 WBC 13.4 H D RBC 4.32 L Hgb 14.4 D Hct 42.3 MCV 97.9 H MCH 33.3 H MCHC 34.0 RDW 12.3 Plt Count 179 MPV 10.8 H Neut % (Auto) 83.0 H Lymph % (Auto) 7.0 L [place] % (Auto) 7.6 Eos % (Auto) 1.0 Baso % (Auto) 0.4 Neut # (Auto) 11.1 H Lymph # (Auto) 0.9 [place] # (Auto) 1.0 Eos # (Auto) 0.1 Baso # (Auto) 0.1 Total Counted Neutrophils % (Manual) Lymphocytes % (Manual) Monocytes % (Manual) Eosinophils % (Manual) Platelet Estimate RBC Morphology Sodium 131 L Potassium 4.7 Chloride 108 H Carbon Dioxide 22 Anion Gap 5.7 BUN 28 H Creatinine 2.00 H Estimated Creat Clear 43 Estimated GFR 33 L Est GFR ( Amer) 40 L Glucose 149 H D POC Glucose 124 H 155 H Calcium 8.4 Magnesium Total Bilirubin 1.3 AST 66 H ALT 86 H Alkaline Phosphatase 96 Troponin I NT-Pro-B Natriuret Pep Total Protein 6.1 L Albumin 3.5 D Globulin 2.6 Albumin/Globulin Ratio 1.3 Lipase Procalcitonin Urine Color Urine Appearance Urine pH Ur Specific [place] Urine Protein Urine Glucose (UA) Urine Ketones Urine Blood Urine Nitrate Urine Bilirubin Urine Urobilinogen Ur Leukocyte Esterase Urine RBC Urine WBC Ur Squamous Epith Cells Urine Bacteria Fine Granular Casts HIV Ag/Ab Combo Qual 03/26/24 03/26/24 03/26/24 20:55 20:45 18:10 WBC RBC Hgb Hct MCV MCH MCHC RDW Plt Count MPV Neut % (Auto) Lymph % (Auto) [place] % (Auto) Eos % (Auto) Baso % (Auto) Neut # (Auto) Lymph # (Auto) [place] # (Auto) Eos # (Auto) Baso # (Auto) Total Counted Neutrophils % (Manual) Lymphocytes % (Manual) Monocytes % (Manual) Eosinophils % (Manual) Platelet Estimate RBC Morphology Sodium Potassium Chloride Carbon Dioxide Anion Gap BUN Creatinine Estimated Creat Clear Estimated GFR Est GFR ( Amer) Glucose POC Glucose 207 H Calcium Magnesium Total Bilirubin AST ALT Alkaline Phosphatase Troponin I < 0.01 < 0.01 NT-Pro-B Natriuret Pep Total Protein Albumin Globulin Albumin/Globulin Ratio Lipase Procalcitonin Urine Color Urine Appearance Urine pH Ur Specific [place] Urine Protein Urine Glucose (UA) Urine Ketones Urine Blood Urine Nitrate Urine Bilirubin Urine Urobilinogen Ur Leukocyte Esterase Urine RBC Urine WBC Ur Squamous Epith Cells Urine Bacteria Fine Granular Casts HIV Ag/Ab Combo Qual 03/26/24 03/26/24 15:27 14:30 WBC 18.5 H RBC 4.92 Hgb 16.9 Hct 48.6 MCV 98.8 H MCH 34.3 H MCHC 34.8 RDW 12.2 Plt Count 210 MPV 11.0 H Neut % (Auto) 86.9 H Lymph % (Auto) 3.9 L [place] % (Auto) 6.4 Eos % (Auto) 0.7 Baso % (Auto) 0.4 Neut # (Auto) 16.1 H Lymph # (Auto) 0.7 [place] # (Auto) 1.2 H Eos # (Auto) 0.1 Baso # (Auto) 0.1 Total Counted 100 Neutrophils % (Manual) 91 H Lymphocytes % (Manual) 5 L Monocytes % (Manual) 3 Eosinophils % (Manual) 1 Platelet Estimate Normal RBC Morphology Normal Sodium 130 L Potassium 5.4 H Chloride 102 Carbon Dioxide 26 Anion Gap 7.4 BUN 37 H Creatinine 2.30 H Estimated Creat Clear 37 Estimated GFR 28 L Est GFR ( Amer) 34 L Glucose 278 H POC Glucose Calcium 8.9 Magnesium 2.2 Total Bilirubin 1.4 H AST 85 H ALT 110 H Alkaline Phosphatase 101 Troponin I < 0.01 NT-Pro-B Natriuret Pep 260 Total Protein 7.4 Albumin 4.5 Globulin 2.9 Albumin/Globulin Ratio 1.6 Lipase 570 H Procalcitonin 0.610 Urine Color Yellow Urine Appearance Sl cloudy Urine pH 6.0 Ur Specific [place] >= 1.030 Urine Protein 2+ A Urine Glucose (UA) 1+ Urine Ketones Negative Urine Blood Negative Urine Nitrate Negative Urine Bilirubin Negative Urine Urobilinogen 0.2 Ur Leukocyte Esterase Negative Urine RBC None Urine WBC Occasional Ur Squamous Epith Cells Occasional Urine Bacteria Trace Fine Granular Casts 3-5 HIV Ag/Ab Combo Qual Negative DS: Diagnosis Discharge Diagnosis (1) Cholelithiasis: Status: Acute Code(s): K80.20 - Calculus of gallbladder without cholecystitis without obstruction (2) Acute kidney injury superimposed on CKD: Status: Acute Code(s): N17.9 - Acute kidney failure, unspecified; N18.9 - Chronic kidney disease, unspecified (3) Acute pancreatitis: Status: Acute Code(s): K85.90 - Acute pancreatitis without necrosis or infection, unspecified Qualifiers: Acute pancreatitis complication: unspecified Pancreatitis type: unspecified pancreatitis type Qualified Code(s): K85.90 - Acute pancreatitis without necrosis or infection, unspecified (4) PAF (paroxysmal atrial fibrillation): Status: Acute Code(s): I48.0 - Paroxysmal atrial fibrillation (5) Type 2 diabetes mellitus: Status: Acute Code(s): E11.9 - Type 2 diabetes mellitus without complications Qualifiers: Diabetes mellitus complication detail: with other circulatory complications Diabetes mellitus complication status: with circulatory complication Diabetes mellitus assisted insulin use: with assisted use Qualified Code(s): E11.59 - Type 2 diabetes mellitus with other circulatory complications; 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 Meds Home Medications and Allergies Home Medications ?Medication ?Instructions ?Recorded ?Confirmed ?Type apixaban 5 mg tablet (Eliquis) 5 mg PO BID 30 days #60 tabs 12/18/23 03/26/24 Rx diltiazem HCl 240 mg 240 mg PO DAILY 30 days #30 caps 12/18/23 03/26/24 Rx capsule,extended release 24 hr glipizide 10 mg tablet 10 mg PO BID #60 tabs 12/18/23 03/26/24 Rx hydrochlorothiazide 25 mg tablet 25 mg PO DAILY 30 days #30 tabs 12/18/23 03/26/24 Rx metoprolol succinate 100 mg 100 mg PO HS 30 days #30 tabs 12/18/23 03/26/24 Rx tablet,extended release 24 hr metoprolol succinate 200 mg 200 mg PO DAILY #30 tabs 12/18/23 03/26/24 Rx tablet,extended release 24 hr pantoprazole 40 mg tablet,delayed 40 mg PO BID #60 tabs 12/18/23 03/26/24 Rx release rosuvastatin 40 mg tablet 40 mg PO DAILY #30 tabs 12/18/23 03/26/24 Rx semaglutide 7 mg tablet (Rybelsus) 7 mg PO DAILY #30 tabs 12/18/23 03/26/24 Rx sitagliptin phosphate 50 1 tab PO BID #60 tabs 12/18/23 03/26/24 Rx mg-metformin 1,000 mg tablet (Janumet) prasugrel 10 mg tablet (Effient) 10 mg PO DAILY 30 days #30 tabs 01/09/24 03/26/24 Rx spironolactone 25 mg tablet 25 mg PO DAILY #30 tabs 02/24/24 03/26/24 Rx (Aldactone) amoxicillin 500 mg-potassium 1 tab PO BID 4 days #8 tabs 03/27/24 Rx clavulanate 125 mg tablet (Augmentin) ondansetron HCl 4 mg tablet 4 mg PO Q8H #14 tabs 03/27/24 Rx prednisone 20 mg tablet 40 mg (2 x 20 mg) PO DAILY 4 days 03/27/24 Rx #8 tabs New Prescriptions to Start Prescriptions: amoxicillin-pot clavulanate [Augmentin] Leonidas Herron ondansetron HCl Leonidas Herron prednisone Leonidas Herron Allergies Allergy/AdvReac Type Severity Reaction Status Date / Time No Known Allergies Allergy Verified 03/23/24 09:04 Discharge Plan Disposition Patient Disposition: Home, Self-Care Condition: Fair Follow up Plan Follow up with: Marcos Tan II, MD [Staff Physician] - Enter time for follow up Bo Prieto MD [Staff Physician] - Enter time for follow up Prescriptions/Medication Reconciliation: New prednisone 20 mg Tablet 40 mg PO DAILY 4 Days Qty: 8 0RF amoxicillin-pot clavulanate [Augmentin] 500-125 mg tablet 1 tab PO BID 4 Days Qty: 8 0RF ondansetron HCl 4 mg tablet 4 mg PO Q8H Qty: 14 0RF Continued glipizide 10 mg tablet 10 mg PO BID Qty: 60 5RF diltiazem HCl 240 mg capsule,extended release 24hr 240 mg PO DAILY 30 Days Qty: 30 5RF Eliquis 5 mg tablet 5 mg PO BID 30 Days Qty: 60 5RF metoprolol succinate 200 mg tablet extended release 24 hr 200 mg PO DAILY Qty: 30 5RF metoprolol succinate 100 mg tablet extended release 24 hr 100 mg PO HS 30 Days Qty: 30 5RF pantoprazole 40 mg tablet,delayed release (DR/EC) 40 mg PO BID Qty: 60 5RF rosuvastatin 40 mg tablet 40 mg PO DAILY Qty: 30 5RF Rybelsus 7 mg tablet 7 mg PO DAILY Qty: 30 5RF Janumet 50-1,000 mg tablet 1 tab PO BID Qty: 60 5RF prasugrel [Effient] 10 mg Tablet 10 mg PO DAILY 30 Days Qty: 30 6RF Held spironolactone [Aldactone] 25 mg tablet 25 mg PO DAILY Qty: 30 5RF Hold Instructions: Resume on 04/02/24. hydrochlorothiazide 25 mg tablet 25 mg PO DAILY 30 Days Qty: 30 5RF Hold Instructions: Resume on 04/02/24. Other Ambulatory Orders: MR MRCP wo con (Routine) Timeframe: 2 Days Facility: [facility] - Location: Radiology Ordered By: Leonidas Herron Problem Reconciliation Problems Reviewed?: Yes Patient Discharge Instructions Additional Instructions: Please hold hydrochlorothiazide, spironolactone due to your temporary decline in kidney function. Stay well-hydrated and nourished. Follow-up with general surgery for your gallbladder, and GI for your gallstones. Patient Instructions: Pancreatitis (Alternative Therapy), Sepsis, Low-Fiber/Low-Residue Diet, DI for Pancreatitis, Acute Kidney Injury, DI for Sepsis -- Adult, DI for Acute Kidney Injury Print Language: Icelandic Providers Primary Care Provider: Otilio Menendez Admit Provider: Leonidas Herron Attending Provider: Leonidas Herron
--- NOTE | 2024-03-29 11:03 | SW/DCPLANNER ---
Spoke with patients on the phone. Patients stated that he is doing well. Patients stated that they made the follow up appointment with Dr Tan and that they were able to roll picker [facility] medication from [facility] the day of discharge. Patiets stated she has no concerns or questions at this time.
--- NOTE | 2024-03-29 13:15 | CARE MANAGER ---
Spoke with scheduling and they have the order for the MRCP. Entered into system no auth required for this procedure. They should be able to schedule it. SUDARSHAN Pacheco
== END 2024-03-27 14:30 | disposition home or self-care (01) ==
LOC: ER 17:13 → 2ND 18:04
PROVIDERS: Nurse Practitioner Family; Physician Assistant; Admitting Provider Student in an Organized Health Care Education/Training Program; Emergency Provider Student in an Organized Health Care Education/Training Program; PCP Family Medicine; Visit Provider Student in an Organized Health Care Education/Training Program
DX: K85.10 Biliary acute pancreatitis without necrosis or infection (principal); K80.20 Calculus of gallbladder without cholecystitis without obstruction; N17.9 Acute kidney failure, unspecified; N18.9 Chronic kidney disease, unspecified; I48.0 Paroxysmal atrial fibrillation; E11.59 Type 2 diabetes mellitus with other circulatory complications; Z79.4 Long term (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 insulin; Z79.899 Other long term (current) drug therapy; E11.22 Type 2 diabetes mellitus with diabetic chronic kidney disease; F17.210 Nicotine dependence, cigarettes, uncomplicated; Z95.5 Presence of coronary angioplasty implant and graft; Z79.01 Long term (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 anticoagulants; I12.9 Hypertensive chronic kidney disease with stage 1 through stage 4 chronic kidney disease, or unspecified chronic kidney disease
CPT/HCPCS: 36415; 71046; 74176; 76700; 80053; 81001; 82962; 83690; 83735; 83880; 84145; 84484; 85007; 85025; 85027; 87040; 87389; 93005; 94640; 99291; G0378; J1650; J2405; J2543; J7030; J7620

== ENCOUNTER 2024-04-03 19:32 | Observation (INO) | payer MEDICARE, BC, SELFPAY ==
[2024-04-03] VITALS (14 sets, daily range): BP systolic 104–156; BP diastolic 70–101; PULSE 60–148; RESP 15–35; TEMP 36.7–36.8; O2SAT 93–98; BMI 29.1
--- NOTE | 2024-04-03 19:33 | ECG_ITS ---
APPROVED REPORT Exam: Resting ECG HR:146 bpm ECG Measurements Heart Rate 146 AXES QRSd 138 QRS -76 QT 353 T -69 QTc 437 Conclusion A flutter with RVR Right bundle branch block morphology Diffuse ST depressions consistent with subendocardial injury likely rate related Electronically signed by : ANALI MARTINEZ, 04/04/2024 15:01:21
--- NOTE | 2024-04-03 19:42 | PC.NURSE ---
Pt states he checks his heart rate twice daily and today it was elevated Had recent stent placed. Skin pink warm and dry Resp full and easy Speech clear and appropriate #20 IV from EMS assessed in left AC Blood drawn and sent to lab IV site without redness or edema Report given to Charley HEATON
--- NOTE | 2024-04-03 20:01 | CT_ITS ---
PROCEDURE INFORMATION: Exam: CT Abdomen And Pelvis With Contrast Exam date and time: 04/03/2024 8:57 PM Age: 74 years old Clinical indication: Abdominal pain; Additional info: Ruq and llq pain, tachycardia TECHNIQUE: Imaging protocol: Computed tomography of the abdomen and pelvis with contrast. Radiation optimization: All CT scans at this facility use at least one of these dose optimization techniques: automated exposure control; mA and/or kV adjustment per patient size (includes targeted exams where dose is matched to clinical indication); or iterative reconstruction. Contrast material: ISOVUE; Contrast volume: 75 ml; Contrast route: IV; COMPARISON: 1. CT ABDOMEN PELVIS WO CON 03/26/2024 5:[address] ABDOMEN PELVIS W CON 11/17/2023 7:36 PM 3. US ABDOMEN COMPLETE 03/26/2024 3:51 PM FINDINGS: Lungs: Scattered areas of bronchial wall thickening which are likely chronic inflammatory. A few areas of subpleural reticulation are noted, nonspecific. There are scattered areas of emphysema throughout the lungs. Liver: There is early morphologic changes of cirrhosis with volume redistribution. No concerning focal liver lesion. Gallbladder and biliary ducts: There is cholelithiasis within an otherwise normal gallbladder. Pancreas: Normal. Spleen: Normal. Adrenal glands: There is some thickening of the right adrenal gland which is stable from prior. Kidneys and ureters: There is nonspecific bilateral perinephric stranding. Stomach and bowel: There is large volume stool throughout the colon. There are scattered colonic diverticula. Appendix: No evidence of appendicitis. Intraperitoneal space: Unremarkable. Vasculature: There is atherosclerotic disease of the visualized aorta and its major branch vessels. Lymph nodes: No lymphadenopathy. Urinary bladder: There is moderate distention of the urinary bladder. Reproductive: No acute process. Bones/joints: There is diffuse degenerative disease of the visualized osseous structures. Soft tissues: There are postsurgical changes of the ventral abdominal wall. There is a small fat containing umbilical hernia. Other findings: Motion artifact mildly limits evaluation. IMPRESSION: No acute inflammatory or obstructive process is identified. Incidental findings are described within the findings section.
--- NOTE | 2024-04-03 20:03 | XR_ITS ---
PROCEDURE INFORMATION: Exam: XR Chest Exam date and time: 04/03/2024 8:53 PM Age: 74 years old Clinical indication: Shortness of breath; Additional info: SOA, tachycardia TECHNIQUE: Imaging protocol: Radiologic exam of the chest. Views: 1 view. COMPARISON: CR XR CHEST 2V 03/26/2024 2:59 PM FINDINGS: Lungs: There is mild coarsening of the bronchovascular markings with hyperinflation suggesting underlying obstructive airways disease. Chronic interstitial changes noted at the left lung base. Pleural spaces: No large effusion or pneumothorax. Heart/Mediastinum: Stable cardiac and mediastinal contours. Bones/joints: No evidence of acute osseous abnormalities within the visualized portions of the thoracic spine and ribs. Osseous structures appear appropriate for patient age. IMPRESSION: No dense parenchymal consolidation, pleural effusion, or pneumothorax.
[2024-04-03 20:09] LABS: Basophils # 0.1 K/mm3 (0-0.2); Basophils % 0.4 % (0.1-2.0); Eosinophils # 0.2 K/mm3 (0.0-0.4); Hematocrit 45.5 % (42.0-52.0); Hemoglobin 15.6 g/dL (14.1-18.0); Lymphocytes # 2.5 K/mm3 (0.7-4.5); Lymphocytes % 16.2 % (10-50); Mean Corpuscular HGB Conc 34.3 g/dL (31.8-35.4); Mean Corpuscular Hemoglobin 33.3 pg (27.0-31.2); Mean Corpuscular Volume 97.2 fl (80-94); Mean Platelet Volume 10.8 fl (7.4-10.4); Monocytes % 6.2 % (1.7-9.3); Neutrophils # 11.7 K/mm3 (1.8-7.8); Neutrophils % 74.7 % (37.0-80.0); Platelet Count 183 K/mm3 (142-424); Red Blood Count 4.68 M/mm3 (4.60-6.20); Red Cell Distribution Width 12.3 % (11.5-17.5); White Blood Count 15.7 K/mm3 (4.8-10.8)
[2024-04-03 20:10] LABS: MANUAL DIFFERENTIAL MANUAL DIFFERENTIAL (MANUAL DIFF)
[2024-04-03] MEDS: KETOROLAC 30MG/ML VIAL 15 MG IV (20:13)
[2024-04-03 20:17] LABS: Activated Partial Thrombo Time 27.2 seconds (22.8-30.6)
[2024-04-03] MEDS: dilTIAZem 25MG/5ML VIAL 20 MG IV (20:17)
[2024-04-03] MEDS: MAGNESIUM SULFATE IN WATER 2 GM/50 ML PIGGYBACK IV (20:17)
[2024-04-03 20:19] LABS: INR 0.91 (0.9-1.1); Prothrombin Time 10.3 seconds (10.1-12.5)
[2024-04-03 20:20] LABS: Albumin Level 3.6 g/dl (3.5-5.0); Chloride 103 mmol/L (98-107); Potassium 4.6 mmoL/L (3.5-5.1); Sodium 132 mmol/L (136-145)
[2024-04-03 20:23] LABS: Alanine Aminotransferase 100 U/L (12-78); Albumin/Globulin Ratio 1.2 (1.1-1.8); Alkaline Phosphatase 167 U/L (38-126); Anion Gap 9.6 mEq/L (5-15); Aspartate Amino Transferase 50 U/L (17-59); Bilirubin,Total 0.9 mg/dl (0.2-1.3); Blood Urea Nitrogen 30 mg/dl (9-20); Calcium 9.2 mg/dl (8.4-10.2); Carbon Dioxide 24 mmol/L (22.0-30.0); Creatinine Clearance Estimated 52 mL/min (50-200); Estimated Glomerular Filt Rate 39 ml/min (>60); GFR (African American) 48 ML/MIN (>60); Globulin 2.9 g/dL (1.3-3.2); Glucose 316 mg/dl (74-100); Total Protein,Serum 6.5 g/dl (6.3-8.2)
[2024-04-03 20:24] LABS: Lipase 522 U/L (23-300)
--- NOTE | 2024-04-03 20:28 | HMH.EDGENADL ---
Discharge Plan Disposition Patient Disposition: Admitted Chief Complaint: Arrhythmia/Palpitations Prescriptions Prescriptions: No Action spironolactone [Aldactone] 25 mg tablet 25 mg PO DAILY Qty: 30 5RF glipizide 10 mg tablet 10 mg PO BID Qty: 60 5RF diltiazem HCl 240 mg capsule,extended release 24hr 240 mg PO DAILY 30 Days Qty: 30 5RF Eliquis 5 mg tablet 5 mg PO BID 30 Days Qty: 60 5RF hydrochlorothiazide 25 mg tablet 25 mg PO DAILY 30 Days Qty: 30 5RF metoprolol succinate 200 mg tablet extended release 24 hr 200 mg PO DAILY Qty: 30 5RF metoprolol succinate 100 mg tablet extended release 24 hr 100 mg PO HS 30 Days Qty: 30 5RF pantoprazole 40 mg tablet,delayed release (DR/EC) 40 mg PO BID Qty: 60 5RF rosuvastatin 40 mg tablet 40 mg PO DAILY Qty: 30 5RF Rybelsus 7 mg tablet 7 mg PO DAILY Qty: 30 5RF Janumet 50-1,000 mg tablet 1 tab PO BID Qty: 60 5RF prednisone 20 mg Tablet 40 mg PO DAILY 4 Days Qty: 8 0RF amoxicillin-pot clavulanate [Augmentin] 500-125 mg tablet 1 tab PO BID 4 Days Qty: 8 0RF ondansetron HCl 4 mg tablet 4 mg PO Q8H Qty: 14 0RF prasugrel [Effient] 10 mg Tablet 10 mg PO DAILY 30 Days Qty: 30 6RF Referrals Follow up/Referrals: Otilio Menendez MD [Primary Care Provider] - See instructions Clinical Impressions Clinical Impression: Atrial flutter with rapid ventricular response, Subendocardial ischemia, Pancreatitis Print Language Print Language: Japanese Discharge ED Provider: Con Stallworth General Adult HPI General Chief complaint: Arrhythmia/Palpitations Stated complaint: tachycardia Time Seen by Provider: 04/03/24 19:41 Mode of Arrival: EMS Source of Information: Patient Limitations: No Limitations Description of Symptoms (Recalled from ER Triage Doc. by RN): Pt states he is having rapid heart rate and nausea History of Present Illness HPI narrative: Please note that above description of symptoms, in this electronic medical record under categorization of recalled from ER triage doctor by RN are reflective of an initial nursing assessment, however, is not reflective of my full history and physical exam that was personally taken and clarified. Consequentially, this preceding description of symptoms, which may include the patient's categorized chief complaint in the EMR, do not reflect my personal clinical impression, and the ultimate description of history of present illness and patient stated complaints should be deferred to this section of the note. Unless stated otherwise or congruent with this section of the note, additional signs, symptoms, or incongruence should be interpreted as inaccurate with my clinical impression. Related Data Previous Rx's ?Medication ?Instructions ?Recorded apixaban 5 mg tablet (Eliquis) 5 mg PO BID 30 days #60 tabs 12/18/23 diltiazem HCl 240 mg 240 mg PO DAILY 30 days #30 caps 12/18/23 capsule,extended release 24 hr glipizide 10 mg tablet 10 mg PO BID #60 tabs 12/18/23 hydrochlorothiazide 25 mg tablet 25 mg PO DAILY 30 days #30 tabs 12/18/23 metoprolol succinate 100 mg 100 mg PO HS 30 days #30 tabs 12/18/23 tablet,extended release 24 hr metoprolol succinate 200 mg 200 mg PO DAILY #30 tabs 12/18/23 tablet,extended release 24 hr pantoprazole 40 mg tablet,delayed 40 mg PO BID #60 tabs 12/18/23 release rosuvastatin 40 mg tablet 40 mg PO DAILY #30 tabs 12/18/23 semaglutide 7 mg tablet (Rybelsus) 7 mg PO DAILY #30 tabs 12/18/23 sitagliptin phosphate 50 1 tab PO BID #60 tabs 12/18/23 mg-metformin 1,000 mg tablet (Janumet) prasugrel 10 mg tablet (Effient) 10 mg PO DAILY 30 days #30 tabs 01/09/24 spironolactone 25 mg tablet 25 mg PO DAILY #30 tabs 02/24/24 (Aldactone) amoxicillin 500 mg-potassium 1 tab PO BID 4 days #8 tabs 03/27/24 clavulanate 125 mg tablet (Augmentin) ondansetron HCl 4 mg tablet 4 mg PO Q8H #14 tabs 03/27/24 prednisone 20 mg tablet 40 mg (2 x 20 mg) PO DAILY 4 days 03/27/24 #8 tabs Allergies Allergy/AdvReac Type Severity Reaction Status Date / Time No Known Allergies Allergy Verified 03/23/24 09:04 [facility] Disclaimer: The information contained in this section may have been updated after the patient was seen, as this information can be updated by other users. Medical History Coronary artery disease Abdominal pain MARY (acute kidney injury) CKD (chronic kidney disease) Diabetes 1.5, managed as type 2 Acute hyperkalemia Fatty infiltration of liver Elbow pain History of rectal fissure Cirrhosis of liver Hepatic cirrhosis Abdominal pain Pneumonia ETD (eustachian tube dysfunction) Hypertrophy of both inferior nasal turbinates Unilateral hearing loss Nasal septal deviation Rib pain Skin infection Cough Smoking Tobacco abuse counseling Sinusitis Anal fissure History of hemorrhoids Renal insufficiency Prostate cancer GERD (gastroesophageal reflux disease) Torn Achilles tendon COPD (chronic obstructive pulmonary disease) Bronchitis Hyperlipidemia associated with type 2 diabetes mellitus Diabetes type 2, controlled Hypertension associated with diabetes Surgical History History of coronary artery stent placement History of prostate surgery Hx of hemorrhoidectomy History of hand surgery History of hernia repair History of colonoscopy History of tonsillectomy Family History Father Cancer Heart attack Stroke Mother Heart attack Stroke Social History Smoking Status: Current every day smoker tobacco type: cigarettes packs per day: 1 alcohol intake: never substance use type: denies use current occupational status: retired Travel in the last 8 weeks: None household members: spouse housing: house marital status: education level: vocational service: No caffeine: Yes special roxanne needs: No do you feel safe at home: Yes victim of physical abuse: No victim of emotional abuse: No victim of sexual abuse: No would you like helpful sources: No Have you lived/traveled outside [place] in past 30 days?: No Contact w/someone who lives/traveled outside [place] past 30 days?: No Exposure to someone with infectious disease in past 14 days?: No Do you have a fever (greater than 100.4 F or 38 C)?: No Have you tested positive for COVID-19: No Exposed to someone with COVID-19 in past 14 days?: No Do you have a sore throat?: No Do you have a cough?: No Do you have any weakness?: No Do you have any diarrhea?: No Are you experiencing any unusual bleeding?: No Do you have any muscle aches/pain?: No Do you have any abdominal pain?: No Are you experiencing loss of taste or smell?: No Other Medical History Have you received the Flu Vaccine for this season: No Have you received the Pneumonia Vaccine: No ROS Obtained: Yes All systems reviewed & no additional complaints except as documented Physical Exam General General appearance: alert and in no apparent distress Head Head exam: atraumatic and normocephalic Eye Eye exam: Present normal appearance, PERRL and EOMI Neck Neck exam: Present normal inspection, full ROM and trachea midline Respiratory Respiratory exam: Present normal lung sounds bilaterally and other (Speaking in full sentences); Absent respiratory distress, wheezes, stridor, accessory muscle use or prolonged expiratory phase Cardiovascular Cardiovascular exam: Present regular rate, tachycardia and other (Pulses equal symmetric in upper and lower extremities) Abdominal Exam Abdominal exam: Present soft; Absent distention, tenderness or pulsatile mass Extremities Exam Extremities exam: Absent edema Neurological Exam Neurological exam: Present alert, oriented X3 and CN II-XII intact; Absent motor sensory deficit Skin Skin exam: Present warm and dry; Absent diaphoresis or erythema Medical Decision Making Medical Records Medical records reviewed: Yes I reviewed the patient's medical records. Screening: Per USPSTF and CDC recommendations, given the prevalence of disease in our region, it is our hospital?s policy to screen for HIV and viral Hepatitis for all patients aged 18 and over and those with ongoing risk factors. Jose Inquiry Pt receiving controlled substance: No Jose was queried for this patient: No Vital Signs: 04/03/24 19:38 04/03/24 20:00 04/03/24 20:21 Temperature 98.3 F Temperature Source Oral Pulse Rate 144 H 140 H Pulse Rate [Right Brachial] 148 H Respiratory Rate 20 18 15 Blood Pressure 117/83 106/80 L Blood Pressure [Right Arm] 137/101 H Blood Pressure Mean 97 89 Blood Pressure Mean [Right Arm] 113 Blood Pressure Source [Right Arm] Automatic Cuff Blood Pressure Position [Right Arm] Supine 02 Sat by Pulse Oximetry 95 98 94 L Oxygen Delivery Method Room Air Room Air Room Air 04/03/24 20:30 04/03/24 20:46 04/03/24 21:16 Temperature Temperature Source Pulse Rate 135 H 70 Pulse Rate [Right Brachial] Respiratory Rate 18 19 Blood Pressure 106/82 L 104/75 L 125/70 Blood Pressure [Right Arm] Blood Pressure Mean 88 78 84 Blood Pressure Mean [Right Arm] Blood Pressure Source [Right Arm] Blood Pressure Position [Right Arm] 02 Sat by Pulse Oximetry 94 L 94 L 94 L Oxygen Delivery Method Room Air Room Air Room Air 04/03/24 21:31 Temperature Temperature Source Pulse Rate Pulse Rate [Right Brachial] Respiratory Rate Blood Pressure 112/73 Blood Pressure [Right Arm] Blood Pressure Mean 80 Blood Pressure Mean [Right Arm] Blood Pressure Source [Right Arm] Blood Pressure Position [Right Arm] 02 Sat by Pulse Oximetry 94 L Oxygen Delivery Method Room Air Lab Data Lab Results 04/03/24 19:30: WBC 15.7 H, RBC 4.68, Hgb 15.6, Hct 45.5, MCV 97.2 H, MCH 33.3 H, MCHC 34.3, RDW 12.3, Plt Count 183, MPV 10.8 H, Neut % (Auto) 74.7, Lymph % (Auto) 16.2, Crosby % (Auto) 6.2, Eos % (Auto) 1.0, Baso % (Auto) 0.4, Neut # (Auto) 11.7 H, Lymph # (Auto) 2.5, Crosby # (Auto) 1.0, Eos # (Auto) 0.2, Baso # (Auto) 0.1, Total Counted 100, Neutrophils % (Manual) 74, Lymphocytes % (Manual) 18, Monocytes % (Manual) 6, Eosinophils % (Manual) 2, Platelet Estimate Normal, RBC Morphology Normal, PT 10.3, INR 0.91, APTT 27.2, Sodium 132 L, Potassium 4.6, Chloride 103, Carbon Dioxide 24, Anion Gap 9.6, BUN 30 H, Creatinine 1.70 H, Estimated Creat Clear 52, Estimated GFR 39 L, Est GFR ( Amer) 48 L, Glucose 316 H, Calcium 9.2, Total Bilirubin 0.9, AST 50, ALT 100 H, Alkaline Phosphatase 167 H, Troponin I 0.07 H, NT-Pro-B Natriuret Pep 768 H, Total Protein 6.5, Albumin 3.6, Globulin 2.9, Albumin/Globulin Ratio 1.2, Lipase 522 H, TSH 3.41, Thyroxine (T4) 6.9, HIV Ag/Ab Combo Qual Negative 04/03/24 20:15: Lactate 1.2 04/03/24 19:30 04/03/24 19:30 Orders (Tests/Meds): ED MEDICATIONS Generic Name Dose Route Start Last Admin Trade Name David PRN Reason Stop Dose Admin Sodium Chloride 10 ml 04/03/24 20:56 04/03/24 20:57 Sodium Chloride 0.9% 10ml Syr (Rad Only) IV 05/03/24 20:55 10 ml NEEDED PRN Administration Maintain IV Site Discontinued Medications Generic Name Dose Route Start Last Admin Trade Name Freedwardo PRN Reason Stop Dose Admin Diltiazem HCl 20 mg 04/03/24 20:00 04/03/24 20:17 Diltiazem 25mg/5ml Vial IV 04/03/24 20:01 20 mg ONCE ONE Administration Diltiazem HCl 25 mg 04/03/24 20:36 04/03/24 20:50 Diltiazem 25mg/5ml Vial IV 04/03/24 20:37 25 mg ONCE ONE Administration Etomidate 10 mg 04/03/24 21:40 04/03/24 22:30 Etomidate 40mg/20ml Vial IV 04/03/24 21:41 10 mg ONCE ONE Administration Magnesium Sulfate 2 gm in 50 mls @ 50 mls/hr 04/03/24 20:00 04/03/24 20:17 Magnesium Sulfate 2gm/50ml Premix IV 04/03/24 20:59 50 mls/hr ONCE ONE Administration Iopamidol 75 ml 04/03/24 20:56 04/03/24 20:57 Iopamidol-370 (76%);100ml Bottle IV 04/03/24 20:57 75 ml ONCE ONE Administration Ketorolac Tromethamine 15 mg 04/03/24 20:11 04/03/24 20:13 Ketorolac 30mg/Ml Vial IV 04/03/24 20:12 15 mg ONCE ONE Administration ORDERS Category Date Time Status CT abdomen pelvis w con Stat Cat Scan 04/03/24 20:01 Completed CXR --portable [XR chest portable] Stat Exams 04/03/24 20:03 Completed Complete Blood Count Auto Diff Stat Lab 04/03/24 19:30 Completed Comprehensive Metabolic Panel Stat Lab 04/03/24 19:30 Completed HIV Combo Routine Lab 04/03/24 19:30 Completed Lactic Acid Stat Lab 04/03/24 20:15 Completed Lipase Stat Lab 04/03/24 19:30 Completed NT Pro Brain Natriuretic Pep. Stat Lab 04/03/24 19:30 Completed PT INR [Prothrombin Time INR] Stat Lab 04/03/24 19:30 Completed PTT [Activated Partial Thrombo Time] Stat Lab 04/03/24 19:30 Completed T4 (Thyroxine) Stat Lab 04/03/24 19:30 Completed TSH [Thyroid Stimulating Hormone] Stat Lab 04/03/24 19:30 Completed Troponin I Q3H Lab 04/03/24 23:15 Ordered Troponin I Q3H Lab 04/04/24 02:15 Ordered Troponin I Stat Lab 04/03/24 19:30 Completed Blood Culture Stat Micro 04/03/24 21:48 Received HEART Score History (anamnesis): Moderately suspicious ECG: Non-specific disturbance Age: >65 years Risk factors: 3 or more risk factors Troponin: </= normal limit HEART Score: 6 Medical Decision Narrative: 74-year-old male history of hypertension, hyperlipidemia, CAD status post stenting, diabetes, A-fib Eliquis, CHF presenting with tachycardia. Patient states that he was taking his blood pressure just before arrival around 6 PM and noticed that his heart rate was in the 140s. Did not come down. Came in for further evaluation. No other associated symptoms. Patient states that he has been having chronic epigastric and left lower quadrant pain that intermittently flares up, is no worse than usual. No shortness of breath, but is having chest pain left-sided that radiates up into his left armpit. It should be noted the patient states that he has a chronically bad gallbladder, recent diagnosis of pancreatitis, chronic left lower quadrant abdominal pain and numerous cardiac risk factors which is complicating current care. History was obtained via conversation with patient. On arrival, patient hemodynamically stable, alert, oriented x4, appropriate, GCS 15, moving all extremities spontaneously, pupils equal and reactive to light. Full physical exam performed and significant for well-appearing male no acute distress. Speaking full sentences. Lungs are clear. Cardiac exam tachycardic with no obvious murmurs gallops rubs. No lower extremity edema. Pulses equal and symmetric. Patient very obviously mentating and neurologically intact, ambulatory. Differential includes a flutter, A-fib with RVR, metabolic abnormality, endocrinologic abnormality, ACS, VA, sepsis, systemic inflammation, pancreatitis, cholecystitis, choledocholithiasis, diverticulitis, among others. Patient placed on continuous cardiac monitoring and continuous pulse ox with initial blood pressure 137/101, heart rate already 8, saturation 95% on room. EKG independently interpreted. What appears to be atrial flutter versus A-fib with RVR 146 bpm. Difficult to discern, but does not appear to have P waves. QRS narrow at 138, QTc 437. Leftward axis with right bundle branch block morphology. ST depressions in 1 and aVL as well as anterolateral leads consistent with subendocardial ischemia, likely rate related. Patient was given 2 g magnesium IV, 20 mg of diltiazem IV for symptomatic management and correction of underlying abnormalities. Workup independently interpreted and significant for leukocytosis 15.7. Patient's coags normal. Chemistry with mild hyponatremia 132, stable kidney function. Lipase still elevated in the 500s. Regarding cardiac function, initial troponin 0.07 with BNP 768. On independent interpretation of imaging, patient has no acute intrathoracic abnormality or acute intra-abdominal abnormality to explain intermittent pains. See radiology read for full review of final results. Heart score 6. Patient continuing to be in A-fib with RVR for the initial diltiazem. Given another 25 mg bolus. On reevaluation, still in A-fib/a flutter with RVR. Repeat EKG demonstrates what appears to be atrial flutter. 131 bpm MI 221, QRS 129. Pads were placed, patient was consented. Patient was sedated with 0.1 mg/kg (10 mg) etomidate and cardioverted on synchronized cardioversion 120 J. Patient immediately converted into normal sinus rhythm. Hospitalist was contacted and case was discussed, patient to be admitted for further monitoring and management after being cardioverted. On reevaluation, patient mentating, completely appropriate able to wake up. Because patient high risk for clinical decompensation, deemed appropriate for inpatient admission. Results were relayed to patient who voiced understanding and patient was agreeable to inpatient admission and management. Patient was admitted to the hospital for further definitive management. Ring Packer disclaimer Much of this encounter note is an electronic printing specialist spoken language to printed text. Electronic printing specialist of the spoken language may permit errors. Although I have reviewed the note, some errors may still exist. Critical Care Critical Care Time Critical Care Time: Yes (cardiac) Attestation: On 04/03/24, the high probability of a clinically significant, sudden or life threatening deterioration of the following system(s) required my full and direct attention, intervention and personal management. The time I documented below is in addition to time spent performing reported procedures but includes the following listed in this critical care notation. Total Time Total Critical Care Time: 75
[2024-04-03 20:31] LABS: Lactic Acid 1.2 mmol/L (0.7-2.1)
[2024-04-03 20:33] LABS: NT Pro Brain Natriuretic Pep. 768 pg/mL (0-450)
[2024-04-03 20:36] LABS: Troponin I 0.07 ng/ml (0.00-0.034)
[2024-04-03 20:40] LABS: T4 (Thyroxine) 6.9 ug/dl (5.53-11.0)
[2024-04-03 20:43] LABS: Eosinophils % 2 % (0-3); Lymphocytes % 18 % (10-50); Monocytes % 6 % (2-9); Neutrophils % 74 % (42-76); Platelet Estimate Normal; RBC Morphology Normal; Total Cells Counted 100
--- NOTE | 2024-04-03 20:49 | ECG_ITS ---
APPROVED REPORT Exam: Resting ECG HR:131 bpm ECG Measurements Heart Rate 131 AXES IL 221 P -55 QRSd 129 QRS -76 QT 322 T 69 QTc 399 Conclusion Atrial flutter with intermittent block Left axis deviation with right bundle branch block High lateral depressions consistent with subendocardial ischemia. No reciprocal elevations Electronically signed by : ANALI MARTINEZ, 04/04/2024 15:03:09
[2024-04-03] MEDS: dilTIAZem 25MG/5ML VIAL 25 MG IV (20:50)
[2024-04-03 20:54] LABS: Thyroid Stimulating Hormone 3.41 uIU/mL (0.465-4.68)
[2024-04-03] MEDS: IOPAMIDOL-370 (76%);100ML BOTTLE 75 ML IV (20:57)
[2024-04-03] MEDS: SODIUM CHLORIDE 0.9% 10ML SYR (RAD ONLY) 10 ML IV (20:57)
[2024-04-03 21:06] LABS: HIV Combo NEGATIVE (Negative)
--- NOTE | 2024-04-03 22:27 | ECG_ITS ---
APPROVED REPORT Exam: Resting ECG HR:61 bpm ECG Measurements Heart Rate 61 AXES NC 171 P 43 QRSd 123 QRS -29 QT 374 T 125 QTc 376 Conclusion Status post cardioversion Sinus rhythm Right bundle branch block Lateral T wave inversions and ST depressions consistent with ischemia, no reciprocal elevations Electronically signed by : ANALI MARTINEZ, 04/04/2024 15:04:02
[2024-04-03] MEDS: ETOMIDATE 40MG/20ML VIAL 10 MG IV (22:30)
--- NOTE | 2024-04-03 22:45 | PC.NURSE ---
Cardioversion completed by Dr. Stallworth. this RN, Daquan Jeffrey, and Raiza, RT at bedside. 10mg Etomidate pushed at 2222. pt attached to monitor and rhythm synced. pt rhythm Atrial Flutter. pt shocked at 2223 with 120 joules. pt tolerated well, pt converted to sinus rhythm. no other medications pushed or shocks required. pt tolerated sedation well and all vital signs remained stable.
--- NOTE | 2024-04-03 23:09 | PC.NURSE ---
PT ARRIVED TO FLOOR AT THIS TIME
--- NOTE | 2024-04-03 23:54 | EXP.HP ---
History of Present Illness *Admission Date: 04/04/24 *Reason for visit:: Atrial fibs cardioversion *History of present illness: This patient who had recently been in the hospital on 03/26/2024, he was here due to cholecystitis and pancreatitis. It was noted at that time that the patient had cholecystitis, pancreatitis and from a previous office note. His medications were being changed to where he was on going to be on Rybelsus. His labs abnormals was increased MCV and MCH with decreased MCHC blood count . he has elevated white count greater than 11 since 03/2023. Noting increased lipase since November 2023. Also some chronic kidney insufficiency, and per scans probable cirrhosis of the liver with normal liver function lab test., Also noting history of urine microalbuminemia greatly increased at times. Also noting that the patient is a pack-a-day smoker. He also had cardiac stents placed on 01/08. And per note from 03/23/2024 Dr. Menendez. That they were awaiting gallbladder surgery that was to be delayed for removal until July 06. This was to allow the stents to settle into the vessel garcia. Having spoken with the patient and the patient's sister that he has been just quite ill and miserable for about the past 4 to 5 months. Patient came to the emergency room after noticing his heart rate was in the 140s. He did not complain of shortness of breath. In the emergency room placed upon monitoring blood pressure initially 137/101. He appeared to be in atrial flutter versus atrial fib with RVR 146 bpm. Patient was cardioverted on 1 attempt. And went back to sinus rhythm. Patient also received medication to slow his heart rate. I have contacted the ER physician we have discussed the patient in detail going over his labs. Do feel that it would be prudent to place him in for observation at least overnight. To evaluate his medications in the morning. Upon his past medical review of going through charts. Noting his abnormal labs getting approximately a year ago.. With increase in lipase since November., With history of nausea sometimes diarrhea that it's main source being blamed upon gallbladder.. And from notes that they were going to wait until July 06 to remove gallbladder. for this stay will also consult cardiology and GI surgery. Reason for this is to come up with a plan to determine if the gallbladder may be removed sooner.. Also has put ia an pharmacology consult to evaluate possible undesirable side effects of the medication Rybelsus. Noting side effects are pancreatitis, and rare cases gallbladder dysfunction. Also nausea vomiting diarrhea. To make sure that this medication is not causing the above symptoms. Also noting per the patient's report is that he has other vessel that needs to be stented and this was going to be planned from about 1 month from today per patient.. [facility] Disclaimer: The information contained in this section may have been updated after the patient was seen, as this information can be updated by other users. Medical History Transaminitis Sepsis without septic shock Nausea & vomiting Generalized abdominal pain Incomplete defecation Coronary artery calcification seen on CT scan Abnormal electrocardiogram [ECG] [EKG] Chest pain Hepatic cirrhosis Coronary artery disease Abdominal pain MARY (acute kidney injury) CKD (chronic kidney disease) Diabetes 1.5, managed as type 2 Acute hyperkalemia Fatty infiltration of liver Elbow pain History of rectal fissure Cirrhosis of liver Hepatic cirrhosis Abdominal pain Pneumonia ETD (eustachian tube dysfunction) Hypertrophy of both inferior nasal turbinates Unilateral hearing loss Nasal septal deviation Rib pain Skin infection Cough Smoking Tobacco abuse counseling Sinusitis Anal fissure History of hemorrhoids Renal insufficiency Prostate cancer GERD (gastroesophageal reflux disease) Torn Achilles tendon COPD (chronic obstructive pulmonary disease) Bronchitis Hyperlipidemia associated with type 2 diabetes mellitus Diabetes type 2, controlled Hypertension associated with diabetes Surgical History History of coronary artery stent placement History of prostate surgery Hx of hemorrhoidectomy History of hand surgery History of hernia repair History of colonoscopy History of tonsillectomy Family History Father Cancer Heart attack Stroke Mother Heart attack Stroke Social History (Updated 04/03/24 @ 23:43 by Lisa Garces RN) Smoking Status: Current every day smoker tobacco type: cigarettes packs per day: 1 alcohol intake: never substance use type: denies use current occupational status: retired Travel in the last 8 weeks: None household members: spouse housing: house marital status: education level: vocational service: No caffeine: Yes special roxanne needs: No do you feel safe at home: Yes victim of physical abuse: No victim of emotional abuse: No victim of sexual abuse: No would you like helpful sources: No Have you lived/traveled outside [place] in past 30 days?: No Contact w/someone who lives/traveled outside [place] past 30 days?: No Exposure to someone with infectious disease in past 14 days?: No Do you have a fever (greater than 100.4 F or 38 C)?: No Have you tested positive for COVID-19: No Exposed to someone with COVID-19 in past 14 days?: No Do you have a sore throat?: No Do you have a cough?: No Do you have any weakness?: No Do you have any diarrhea?: No Are you experiencing any unusual bleeding?: No Do you have any muscle aches/pain?: No Do you have any abdominal pain?: No Are you experiencing loss of taste or smell?: No Other Medical History Have you received the Flu Vaccine for this season: Yes Have you received the Pneumonia Vaccine: Yes Review of Systems Review of Systems Review of systems:: pertinent systems reviewed and negative unless documented below Constitutional Constitutional: Reports as per HPI Comments: Still sedated postprocedure but is alert and oriented able to answer questions/ sister in room Eyes Eyes: Reports as per HPI ENT Ears, Nose, Mouth, and Throat: Reports as per HPI *Cardiovascular Cardiovascular: Reports as per HPI, Reports irregular heart rhythm and Reports palpitations *Respiratory Respiratory: Reports as per HPI *Gastrointestinal Gastrointestinal: Reports as per HPI *Genitourinary Genitourinary: Reports as per HPI *Musculoskeletal Musculoskeletal: Reports as per HPI Integumentary/Breasts Skin/Breast: Reports as per HPI *Neurologic Neurologic: Reports as per HPI Endocrine Endocrine: Reports as per HPI and Reports palpitations Hematologic/Lymphatic Hematologic/Lymphatic: Reports as per HPI Allergic/Immunologic Allergic/Immunologic: Reports as per HPI Meds Home Medications and Allergies Home Medications ?Medication ?Instructions ?Recorded ?Confirmed ?Type apixaban 5 mg tablet (Eliquis) 5 mg PO BID 30 days #60 tabs 12/18/23 04/03/24 Rx diltiazem HCl 240 mg 240 mg PO DAILY 30 days #30 caps 12/18/23 04/03/24 Rx capsule,extended release 24 hr glipizide 10 mg tablet 10 mg PO BID #60 tabs 12/18/23 04/03/24 Rx hydrochlorothiazide 25 mg tablet 25 mg PO DAILY 30 days #30 tabs 12/18/23 04/03/24 Rx metoprolol succinate 100 mg 100 mg PO HS 30 days #30 tabs 12/18/23 04/03/24 Rx tablet,extended release 24 hr metoprolol succinate 200 mg 200 mg PO DAILY #30 tabs 12/18/23 04/03/24 Rx tablet,extended release 24 hr pantoprazole 40 mg tablet,delayed 40 mg PO BID #60 tabs 12/18/23 04/03/24 Rx release rosuvastatin 40 mg tablet 40 mg PO DAILY #30 tabs 12/18/23 04/03/24 Rx semaglutide 7 mg tablet (Rybelsus) 7 mg PO DAILY #30 tabs 12/18/23 04/03/24 Rx sitagliptin phosphate 50 1 tab PO BID #60 tabs 12/18/23 04/03/24 Rx mg-metformin 1,000 mg tablet (Janumet) prasugrel 10 mg tablet (Effient) 10 mg PO DAILY 30 days #30 tabs 01/09/24 04/03/24 Rx spironolactone 25 mg tablet 25 mg PO DAILY #30 tabs 02/24/24 04/03/24 Rx (Aldactone) ondansetron HCl 4 mg tablet 4 mg PO Q8H #14 tabs 03/27/24 04/03/24 Rx New Prescriptions to Start Prescriptions: Allergies Allergy/AdvReac Type Severity Reaction Status Date / Time No Known Allergies Allergy Verified 03/23/24 09:04 Exam Data for Last 24 hours Vital signs and Labs for Last 24 Hours: Temp Pulse Resp BP Pulse Ox O2 Del Method O2 Flow Rate 98.1 F 60 26 H 116/70 93 L Nasal Cannula 2 04/03/24 22:53 04/03/24 22:53 04/03/24 22:53 04/03/24 22:53 04/03/24 22:44 04/03/24 23:14 04/03/24 23:14 Laboratory Results - last 24 hr 04/03/24 19:30: WBC 15.7 H, RBC 4.68, Hgb 15.6, Hct 45.5, MCV 97.2 H, MCH 33.3 H, MCHC 34.3, RDW 12.3, Plt Count 183, MPV 10.8 H, Neut % (Auto) 74.7, Lymph % (Auto) 16.2, [place] % (Auto) 6.2, Eos % (Auto) 1.0, Baso % (Auto) 0.4, Neut # (Auto) 11.7 H, Lymph # (Auto) 2.5, [place] # (Auto) 1.0, Eos # (Auto) 0.2, Baso # (Auto) 0.1, Total Counted 100, Neutrophils % (Manual) 74, Lymphocytes % (Manual) 18, Monocytes % (Manual) 6, Eosinophils % (Manual) 2, Platelet Estimate Normal, RBC Morphology Normal, PT 10.3, INR 0.91, APTT 27.2, Sodium 132 L, Potassium 4.6, Chloride 103, Carbon Dioxide 24, Anion Gap 9.6, BUN 30 H, Creatinine 1.70 H, Estimated Creat Clear 52, Estimated GFR 39 L, Est GFR ( Amer) 48 L, Glucose 316 H, Calcium 9.2, Total Bilirubin 0.9, AST 50, ALT 100 H, Alkaline Phosphatase 167 H, Troponin I 0.07 H, NT-Pro-B Natriuret Pep 768 H, Total Protein 6.5, Albumin 3.6, Globulin 2.9, Albumin/Globulin Ratio 1.2, Lipase 522 H, TSH 3.41, Thyroxine (T4) 6.9, HIV Ag/Ab Combo Qual Negative 04/03/24 20:15: Lactate 1.2 I & O for Last 24 hours: Intake & Output 04/01/24 04/02/24 04/03/24 04/04/24 05:59 05:59 05:59 05:59 Weight 215 lb Radiology Reports for the Last 24 Hours: Chest x-ray and CT scan of abdomen and pelvis found no acute findings Constitutional Constitutional: mild distress, obese and chronically ill appearing Comments: Patient is alert and oriented able to answer his questions well for *Routine HEENT Exam Head: Present normocephalic and atraumatic Eye: Present EOMI and PERRL ENT: Present mucous membranes moist *Routine Neck Exam Neck: Present supple and full ROM Routine Chest/Breast/Axilla Exam Chest wall: Present tenderness Comments: The patient's file her pads were still in place some mild discomfort to the anterior chest wall *Routine Respiratory Exam Respiratory: Present CTA bilaterally, normal respiratory effort, able to speak in complete sentences and symmetric chest movement Comments: No respiratory distress noted *Routine Cardiovascular Exam Cardiovascular: Present RRR, Normal S1, Normal S2 and murmur Comments: Converted back into sinus rhythm, *Routine Abdominal Exam Abdominal: Present soft, normoactive bowel sounds and obese Comments: Examination of the abdomen with palpation did not find any pain in the upper quadrants., No sign of hernia ascites *Routine Rectal Exam Rectal:: deferred *Routine Genitalia Exam Genitalia:: deferred *Routine Extremities Exam Extremities: Present full ROM and normal capillary refill Routine Back/Spine/Pelvis Exam Back/Spine: Present full ROM Comments: Examination of the abdomen back and flanks found no signs of injury, good range of motion *Routine Skin Exam Skin: Present intact, dry, warm and normal turgor Comments: As noted there are several pads on the patient at this point in time but his skin exam appears to be normal *Routine Neurological Exam Neurological: Present alert, oriented X3, CN II-XII intact, normal tone, vision grossly intact and hearing grossly intact Comments: Patient returning to his baseline rather quickly. Patient was quite sedated for a while took a while to get his orientation back, after cardioversion drugs began to fade Routine Psychiatric Exam Psychiatric: Present normal affect, normal thought process and cooperative H&P: Result Impressions 1. Atrial fibs with RVR with conversion back to sinus rhythm 2. Cardiovascular disease with recent stenting requiring other stents to be placed in the near future 3. Chronic pancreatitis with chronic nausea and vomiting question related to gallbladder, versus medication reaction Imaging and Cardiology Chest x-ray: Additional comments: No acute findings cardiac silhouette normal size CT scan - abdomen: Status: image reviewed by me Additional comments: No acute findings gallbladder appears to be relatively normal pancreas does not appear to be inflamed or have stranding Assessment and Plan *Assessment and plan (1) Atrial flutter with rapid ventricular response: Status: Acute Category: Medical Code(s): I48.92 - Unspecified atrial flutter (2) Pancreatitis: Status: Acute Qualifiers: Chronicity: chronic Pancreatitis type: unspecified pancreatitis type Qualified Code(s): K86.1 - Other chronic pancreatitis Category: Medical Code(s): K85.90 - Acute pancreatitis without necrosis or infection, unspecified (3) Cirrhosis: Status: Acute Qualifiers: Ascites presence: without ascites Hepatic cirrhosis type: unspecified hepatic cirrhosis Qualified Code(s): K74.60 - Unspecified cirrhosis of liver Category: Medical Code(s): K74.60 - Unspecified cirrhosis of liver (4) Type 2 diabetes mellitus: Status: Acute Qualifiers: Diabetes mellitus complication detail: with other circulatory complications Diabetes mellitus complication status: with circulatory complication Diabetes mellitus 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 transplanted heart: [place] heart Qualified Code(s): I25.10 - Atherosclerotic heart disease of [place] coronary artery without angina pectoris Category: Medical Code(s): I25.10 - Atherosclerotic heart disease of [place] coronary artery without angina pectoris (6) Leukocyte disorder: Status: Acute Category: Medical Code(s): D72.9 - Disorder of white blood cells, unspecified (7) Macrocytosis: Status: Acute Category: Medical Code(s): D75.89 - Other specified diseases of blood and blood-forming organs (8) Chronic renal insufficiency, stage I: Status: Acute Category: Medical Code(s): N18.1 - Chronic kidney disease, stage 1 (9) Gastroparesis: Status: Acute Category: Medical Code(s): K31.84 - Gastroparesis Plan 1. Problem with atrial fibs and RVR converted back to normal sinus rhythm., Due to patient's condition also receiving a large amount of calcium channel césar will place the patient on the floor to monitor tonight, we will make sure that the patient stays in sinus rhythm adjust medication as needed., Confirmed with pharmacy of proper home medications before discharge 2. Diabetes mellitus treated with medication Rybelsus, patient noted of having increased pancreatic enzyme lipase. Also increased WBCs for quite some period of time, macrocytosis, with long history of gastroparesis nausea vomiting some diarrhea.. Will have pharmacy evaluate medication to see if there are unexpected side effects. Concerned that lipase remains elevated for this period of time 3. Due to the above with the patient basically been miserable for the last several months also noting weight loss that might be medication related. Do have general surgery evaluate with cardiology to determine if cholecystectomy is a viable option not having to wait until July 06. Noting that there is some history that the patient may require other cardiac stents in the near future. Case was discussed with ER physician, request admission for monitoring on telemetry, cardiology eval, and further management of abdominal pain and A-fib. Rohith agreed to admit. Labs showed slight elevation of lipase in the 500s. Patient's abdominal exam however more consistent with diffuse pain as opposed to focal pain. No acute gallbladder abnormality on my review of CT of abdomen. Does have significant stool burden however. Will hold on surgical consult. CBC CMP, magnesium ordered for the morning. Rounded on patient after nurse practitioner. Personally examined and interviewed patient. Agree with exam findings and care plan as documented.
[2024-04-03 23:58] LABS: Troponin I 0.16 ng/ml (0.00-0.034)
[2024-04-04] VITALS (9 sets, daily range): BP systolic 116–148; BP diastolic 75–85; PULSE 60–80; RESP 16–20; TEMP 36.4–37.2; O2SAT 93–96; BMI 29.1
[2024-04-04 02:38] LABS: Troponin I 0.18 ng/ml (0.00-0.034)
[2024-04-04] MEDS: humaLOG 100 UNITS/ML 10ML VIAL (SSI) SUBCUT ×4 (05:54→21:07)
--- NOTE | 2024-04-04 05:58 | PC.NURSE ---
PT HAS DONE WELL SINCE ARRIVING TO THE FLOOR. NO C/O OF SOB, PALPITATIONS, OR CHEST PAIN. PT STATES THAT HE FEELS, PRETTY GOOD . HE IS ON HIS NORMAL ROOM AIR AND IS TOLERATING IT WELL. NO CONCERNS VOICED BY PT. CALL FIELD WITHIN REACH.
[2024-04-04 06:00] LABS: POC Glucose,Bedside 215 (70-110)
[2024-04-04 07:49] LABS: Basophils # 0.1 K/mm3 (0-0.2); Basophils % 0.4 % (0.1-2.0); Eosinophils # 0.1 K/mm3 (0.0-0.4); Eosinophils % 0.9 % (0.1-12.0); Hematocrit 44.3 % (42.0-52.0); Hemoglobin 15.1 g/dL (14.1-18.0); Lymphocytes # 2.3 K/mm3 (0.7-4.5); Lymphocytes % 18.4 % (10-50); Mean Corpuscular HGB Conc 34.1 g/dL (31.8-35.4); Mean Corpuscular Hemoglobin 33.4 pg (27.0-31.2); Mean Platelet Volume 10.8 fl (7.4-10.4); Monocytes # 0.8 K/mm3 (0.1-1.0); Monocytes % 6.6 % (1.7-9.3); Neutrophils # 9.1 K/mm3 (1.8-7.8); Neutrophils % 72.3 % (37.0-80.0); Platelet Count 181 K/mm3 (142-424); Red Blood Count 4.52 M/mm3 (4.60-6.20); Red Cell Distribution Width 12.5 % (11.5-17.5); White Blood Count 12.5 K/mm3 (4.8-10.8)
[2024-04-04 07:57] LABS: Albumin Level 3.6 g/dl (3.5-5.0); Chloride 105 mmol/L (98-107)
[2024-04-04 07:58] LABS: Potassium 4.5 mmoL/L (3.5-5.1); Sodium 132 mmol/L (136-145)
[2024-04-04 08:00] LABS: Alanine Aminotransferase 84 U/L (12-78); Alkaline Phosphatase 153 U/L (38-126); Aspartate Amino Transferase 41 U/L (17-59); Bilirubin,Total 1.2 mg/dl (0.2-1.3); Blood Urea Nitrogen 33 mg/dl (9-20); Creatinine Clearance Estimated 52 mL/min (50-200); Estimated Glomerular Filt Rate 39 ml/min (>60); GFR (African American) 48 ML/MIN (>60)
[2024-04-04 08:01] LABS: Albumin/Globulin Ratio 1.3 (1.1-1.8); Anion Gap 6.5 mEq/L (5-15); Calcium 9.1 mg/dl (8.4-10.2); Carbon Dioxide 25 mmol/L (22.0-30.0); Globulin 2.7 g/dL (1.3-3.2); Glucose 217 mg/dl (74-100); Magnesium 2.6 mg/dl (1.6-2.3); Total Protein,Serum 6.3 g/dl (6.3-8.2)
[2024-04-04] MEDS: PRASUGREL 10MG TAB 10 MG PO (10:48)
[2024-04-04] MEDS: dilTIAZem ER 240MG CAPSULE 240 MG PO (10:48)
[2024-04-04] MEDS: PANTOPRAZOLE 40MG TABLET 40 MG PO ×2 (10:48→20:57)
[2024-04-04] MEDS: hydroCHLOROthiazide 25MG TABLET 25 MG PO (10:49)
[2024-04-04] MEDS: APIXABAN 5MG TABLET 5 MG PO ×2 (10:49→20:57)
[2024-04-04] MEDS: METOPROLOL SUCCINATE XL 100MG TABLET 200 MG PO (10:49)
[2024-04-04] MEDS: SPIRONOLACTONE 25MG TABLET 25 MG PO (10:49)
--- NOTE | 2024-04-04 13:55 | P.PN_ITS ---
Subjective *Date: 04/04/24 *Time: 17:05 Interval history: Patient on room air this morning. Denies any chest pain or palpitations. No further events overnight. No nausea or vomiting. Tolerating p.o. intake. Heart rate appears controlled at this time. Still having some abdominal pain. Complains more of pain in his lower abdomen than upper abdomen. Medical Exam Vital signs and Labs for Last 24 Hours: Vital Signs Temp Pulse Pulse Resp BP BP Pulse Ox 04/04/24 12:00 97.9 F 66 20 143/77 H 94 L 04/04/24 11:00 04/04/24 09:00 04/04/24 08:00 60 04/04/24 08:00 04/04/24 08:00 97.7 F 71 18 146/82 H 94 L 04/04/24 06:50 60 04/04/24 06:41 04/04/24 05:00 04/04/24 04:00 98.9 F 65 16 148/85 H 96 04/04/24 03:18 04/04/24 01:00 04/04/24 00:28 60 04/04/24 00:00 98.7 F 60 16 116/81 94 L 04/03/24 23:57 04/03/24 23:14 04/03/24 22:53 98.1 F 60 26 H 116/70 04/03/24 22:44 60 26 H 122/79 93 L 04/03/24 22:35 64 28 H 136/84 95 04/03/24 22:31 98.1 F 139 H 19 109/87 L 96 04/03/24 22:30 61 28 H 156/94 H 94 L 04/03/24 22:25 63 35 H 108/77 L 94 L 04/03/24 22:15 139 H 19 109/87 L 96 04/03/24 21:31 112/73 94 L 04/03/24 21:16 125/70 94 L 04/03/24 20:46 70 19 104/75 L 94 L 04/03/24 20:30 135 H 18 106/82 L 94 L 04/03/24 20:21 140 H 15 106/80 L 94 L 04/03/24 20:00 144 H 18 117/83 98 04/03/24 19:38 98.3 F 148 H 20 137/101 H 95 O2 Del Method O2 Flow Rate 04/04/24 12:00 Room Air 04/04/24 11:00 Room Air 04/04/24 09:00 Room Air 04/04/24 08:00 04/04/24 08:00 Room Air 04/04/24 08:00 Nasal Cannula 2 04/04/24 06:50 04/04/24 06:41 Room Air 04/04/24 05:00 Nasal Cannula 2 04/04/24 04:00 Nasal Cannula 2 04/04/24 03:18 Nasal Cannula 2 04/04/24 01:00 Nasal Cannula 2 04/04/24 00:28 04/04/24 00:00 Nasal Cannula 2 04/03/24 23:57 Nasal Cannula 2 04/03/24 23:14 Nasal Cannula 2 04/03/24 22:53 Nasal Cannula 2 04/03/24 22:44 Nasal Cannula 2 04/03/24 22:35 Nasal Cannula 2 04/03/24 22:31 Nasal Cannula 2 04/03/24 22:30 Nasal Cannula 2 04/03/24 22:25 Nasal Cannula 2 04/03/24 22:15 Nasal Cannula 2 04/03/24 21:31 Room Air 04/03/24 21:16 Room Air 04/03/24 20:46 Room Air 04/03/24 20:30 Room Air 04/03/24 20:21 Room Air 04/03/24 20:00 Room Air 04/03/24 19:38 Room Air Intake and Output 04/03/24 04/04/24 04/04/24 23:59 07:59 15:59 Intake Total 222 / 702 480 / 702 Balance 222 / 702 480 / 702 Intake: Intake, Oral Amount 222 / 702 480 / 702 Other: Weight 97.522 kg 97.522 kg Patient Weight 04/04/24 23:59 Weight 97.522 kg Laboratory Results - last 24 hr 04/03/24 19:30: WBC 15.7 H, RBC 4.68, Hgb 15.6, Hct 45.5, MCV 97.2 H, MCH 33.3 H , MCHC 34.3, RDW 12.3, Plt Count 183, MPV 10.8 H, Neut % (Auto) 74.7, Lymph % (Auto) 16.2, Cassia % (Auto) 6.2, Eos % (Auto) 1.0, Baso % (Auto) 0.4, Neut # (Auto) 11.7 H, Lymph # (Auto) 2.5, Cassia # (Auto) 1.0, Eos # (Auto) 0.2, Baso # (Auto) 0.1, Total Counted 100, Neutrophils % (Manual) 74, Lymphocytes % (Manual) 18, Monocytes % (Manual) 6, Eosinophils % (Manual) 2, Platelet Estimate Normal, RBC Morphology Normal, PT 10.3, INR 0.91, APTT 27.2, Sodium 132 L, Potassium 4.6, Chloride 103, Carbon Dioxide 24, Anion Gap 9.6, BUN 30 H, Creatinine 1.70 H , Estimated Creat Clear 52, Estimated GFR 39 L, Est GFR ( Amer) 48 L, Glucose 316 H, Calcium 9.2, Total Bilirubin 0.9, AST 50, ALT 100 H, Alkaline Phosphatase 167 H, Troponin I 0.07 H, NT-Pro-B Natriuret Pep 768 H, Total Protein 6.5, Albumin 3.6, Globulin 2.9, Albumin/Globulin Ratio 1.2, Lipase 522 H , TSH 3.41, Thyroxine (T4) 6.9, HIV Ag/Ab Combo Qual Negative 04/03/24 20:15: Lactate 1.2 04/03/24 23:30: Troponin I 0.16 H 04/04/24 01:50: Troponin I 0.18 H 04/04/24 05:48: POC Glucose 215 H 04/04/24 07:25: WBC 12.5 H, RBC 4.52 L, Hgb 15.1, Hct 44.3, MCV 98.0 H, MCH 33.4 H, MCHC 34.1, RDW 12.5, Plt Count 181, MPV 10.8 H, Neut % (Auto) 72.3, Lymph % (Auto) 18.4, Cassia % (Auto) 6.6, Eos % (Auto) 0.9, Baso % (Auto) 0.4, Neut # (Auto) 9.1 H, Lymph # (Auto) 2.3, Cassia # (Auto) 0.8, Eos # (Auto) 0.1, Baso # (Auto) 0.1, Sodium 132 L, Potassium 4.5, Chloride 105, Carbon Dioxide 25, Anion Gap 6.5, BUN 33 H, Creatinine 1.70 H, Estimated Creat Clear 52, Estimated GFR 39 L, Est GFR ( Amer) 48 L, Glucose 217 H D, Calcium 9.1, Magnesium 2.6 H, Total Bilirubin 1.2, AST 41, ALT 84 H, Alkaline Phosphatase 153 H, Total Protein 6.3, Albumin 3.6, Globulin 2.7, Albumin/Globulin Ratio 1.3 I & O for Labs for Last 24 Hours: Intake & Output 04/01/24 04/02/24 04/03/24 04/04/24 23:59 23:59 23:59 23:59 Intake Total 702 / 702 Balance 702 / 702 Weight 97.522 kg 97.522 kg Constitutional: Present no acute distress, obese and chronically ill appearing Head: Present atraumatic and normocephalic Respiratory: Present normal respiratory effort; Absent rhonchi, wheezes or crackles Cardiac: Present Reg Rate and Rhythm GI: Present soft, tenderness (Diffuse nonfocal) and normal bowel sounds; Absent distention Extremities: Present normal inspection and full ROM Skin: Present intact; Absent erythema Neuro: Present Grossly Intact, alert, awake, oriented x 3 and moves all extremities Assessment and Plan *Assessment and plan (1) Atrial flutter with rapid ventricular response: Status: Acute Category: Medical Code(s): I48.92 - Unspecified atrial flutter (2) Pancreatitis: Status: Acute Qualifiers: Chronicity: chronic Pancreatitis type: unspecified pancreatitis type Qualified Code(s): K86.1 - Other chronic pancreatitis Category: Medical Code(s): K85.90 - Acute pancreatitis without necrosis or infection, unspecified (3) Cirrhosis: Status: Acute Qualifiers: Ascites presence: without ascites Hepatic cirrhosis type: unspecified hepatic cirrhosis Qualified Code(s): K74.60 - Unspecified cirrhosis of liver Category: Medical Code(s): K74.60 - Unspecified cirrhosis of liver (4) Type 2 diabetes mellitus: Status: Acute Qualifiers: Diabetes mellitus complication detail: with other circulatory complications Diabetes mellitus complication status: with circulatory complication Diabetes mellitus mcfp insulin use: with mcfp use Qualified Code(s): E11.59 - Type 2 diabetes mellitus with other circulatory complications; 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 transplanted heart: [place] heart Qualified Code(s): I25.10 - Atherosclerotic heart disease of [place] coronary artery without angina pectoris Category: Medical Code(s): I25.10 - Atherosclerotic heart disease of [place] coronary artery without angina pectoris (6) Leukocyte disorder: Status: Acute Category: Medical Code(s): D72.9 - Disorder of white blood cells, unspecified (7) Macrocytosis: Status: Acute Category: Medical Code(s): D75.89 - Other specified diseases of blood and blood-forming organs (8) Chronic renal insufficiency, stage I: Status: Acute Category: Medical Code(s): N18.1 - Chronic kidney disease, stage 1 (9) Gastroparesis: Status: Acute Category: Medical Code(s): K31.84 - Gastroparesis (10) Chronic constipation: Status: Acute Category: Medical Code(s): K59.09 - Other constipation Plan 74-year-old male who presented with palpitations. Found to be in A-fib with RVR. Cardioverted in the ER. Medicine consulted for admission. Has done well overnight, maintaining sinus rhythm. Will monitor for 24 hours with serial labs given elevation in lipase and concern for component of pancreatitis. Patient also appears severely constipated on imaging. Initiate bowel regimen. Car diology to evaluate in the morning. Problems addressed as follows: A-fib with RVR Coronary artery disease -Cardioverted in the ER. Has done well, maintaining sinus rhythm. -Continue metoprolol succinate 100 mg nightly and 200 mg daily. Resume home regimen of diltiazem 240 mg extended release daily -Continue HCTZ 25 mg daily, prasugrel 10 mg daily Crestor 40 mg daily, and spironolactone 25 mg daily -Monitor on telemetry. Cardiology to evaluate in the morning -Continue home Eliquis 5 mg twice daily -White count 12.5, kidney function at baseline with BUN 33, creatinine 1.7. Electrolytes normal with potassium 4.5, magnesium 2.6. Repeat CBC, CMP, magnesium ordered for the morning Pancreatitis: Patient on Rybelsus for diabetes. Has had elevated lipase for a while. Also having constipation. Will discontinue Rybelsus due to its impact on his bowels and risk for pancreatitis. Repeat lipase ordered for the morning. Patient complains of pain but it is diffuse. Clinically consistent with constipation not pancreatitis. Chronic constipation: Initiate MiraLAX daily and docusate senna twice daily. If no bowel movement by morning, will administer mag citrate orally and possibly an enema. Diabetes: Review of chart shows A1c's have traditionally been well-controlled less than 7.5. Given his age and comorbidities, ADA recommendations would suggest A1c less than 8. Will continue sliding scale insulin with fingersticks ACHS while admitted. Would affect from her Janumet discharge, hold Rybelsus in the setting of pancreatitis, continue glipizide. Cholelithiasis -Patient had heart cath within the past few months. Is following with surgeon in [place]. Due to have cholecystectomy performed sometime after June so prasugrel can be held. Full code Eliquis 5 mg twice daily Cardiac diet
[2024-04-04 17:16] LABS: POC Glucose,Bedside 258 (70-110)
[2024-04-04 17:16] LABS: POC Glucose,Bedside 178 (70-110)
--- NOTE | 2024-04-04 17:28 | PC.NURSE ---
AOX4, TOLERATING DIET WELL. DENIES CHEST PAIN. ONLY COMPLAINT IS SHARP STABBING PAIN TO LEFT LEG.
[2024-04-04] MEDS: POLYETHYLENE GLYCOL 3350 17 GM PACKET PO (17:39)
[2024-04-04] MEDS: METOPROLOL SUCCINATE XL 100MG TABLET 100 MG PO (20:58)
[2024-04-04] MEDS: SENNOSIDES 8.6MG/DOCUSATE 50MG TABLET 1 TAB PO (20:58)
[2024-04-04] MEDS: ATORVASTATIN 40MG TABLET 80 MG PO (20:58)
[2024-04-05] VITALS: BP 139/84; PULSE 70; PULSE 74; RESP 16; TEMP 36.6; O2SAT 95
[2024-04-05 00:34] LABS: POC Glucose,Bedside 239 (70-110)
[2024-04-05 04:00] VITALS: BP 144/82; PULSE 68; PULSE 70; RESP 16; TEMP 36.4; O2SAT 93; BMI 29.1
--- NOTE | 2024-04-05 05:25 | PC.NURSE ---
Pt. is alert and orientated x 4. Pt. denies chest or SOB. Pt. sleeping most of shift. No c/o's. VSS, Personal items and call espinoza in reach.
[2024-04-05] MEDS: humaLOG 100 UNITS/ML 10ML VIAL (SSI) SUBCUT (06:37)
--- NOTE | 2024-04-05 07:20 | CA_ITS ---
APPROVED REPORT EXAM: Comprehensive 2D, Doppler, and color-flow Echocardiogram [employer] Scientist: Adele Begum RVT Ht: 6 ft 0 in Wt: 215lbs BSA: 2.20 BP: 109/87 mmHg Indications: A-FIB,COPD,PALPS,CAD,PHTN,SMOKER,HTN,HLD,CIRRHOSIS 2D Dimensions LA Volume 18.60 mL LA Volume Index 8.45 mL/m2 (M/F) 16-34 M-Mode Dimensions RVDd 2.64 cm (0.9-2.6) LA Diam 2.49 cm (1.9-4.0) LVDd 4.08 cm (3.5-5.7) LVDs 2.76 cm (3.5-5.7) IVSd 1.49 cm (0.6-1.1) PWd 1.06 cm (0.6-1.1) EF (Teich) 61.20% FS 32.40% EDV (Teich) 73.40 mL TAPSE 2.52 (<1.7) ESV (Teich) 28.50 mL LV Diastology E Decel Time 150 (160-240 msec) E/A Ratio 0.7 Aortic Valve AO Peak GR. 4.80 mmHg Mitral Valve MV E Max Panfilo. 59.0 (40-130 cm/s) MV A Velocity 84.0 (40-130 cm/s) E/A Ratio 0.70 MV PHT 44.0 ms Pulmonary Valve PV Peak Velocity 96.0 (50-150 cm/s) Left Ventricle The left ventricle is normal size. The left ventricular systolic function is normal. The left ventricular ejection fraction is within the normal range. There is increased LV wall thickness. The septum is asynchronous. Diastolic function is indeterminate. LVEF is 55%. Right Ventricle Right ventricle is mildly dilated. The right ventricular systolic function is normal. Atria The left atrium size is normal. The right atrium size is normal. There is no Doppler evidence of interatrial shunt. Aortic Valve The aortic valve is mildly thickened. There is no aortic valvular stenosis. Trace aortic regurgitation. Mitral Valve The mitral valve is normal in structure. No evidence of mitral valve stenosis. Trace mitral regurgitation. Tricuspid Valve Tricuspid valve is grossly normal in structure and function. Trace tricuspid regurgitation. There is insufficient TR jet to estimate RVSP. Pulmonic Valve The pulmonary valve is normal in structure. Trace pulmonic regurgitation. Great Vessels The aortic root is normal in size. IVC is normal in size and collapses >50% with inspiration. Pericardium There is a small-sized, localized, anterior pericardial effusion along the distal RV free wall. The largest pocket measures 0.5 cm in diastole. No echo indications of tamponade. Other Information Study Quality: Fair Conclusion Normal biventricular systolic function. Asynchronous septum. Mild RV dilation. Small-sized, localized, anterior pericardial effusion along the distal RV free wall. The largest pocket measures 0.5 cm in diastole. No echo indications of tamponade. Electronically signed by : Gayatri Hale MD 04/05/2024 11:09:19
[2024-04-05 07:40] LABS: Basophils % 0.3 % (0.1-2.0); Eosinophils # 0.1 K/mm3 (0.0-0.4); Eosinophils % 0.9 % (0.1-12.0); Hematocrit 45.6 % (42.0-52.0); Hemoglobin 15.7 g/dL (14.1-18.0); Lymphocytes # 2.1 K/mm3 (0.7-4.5); Lymphocytes % 16.2 % (10-50); Mean Corpuscular HGB Conc 34.4 g/dL (31.8-35.4); Mean Corpuscular Hemoglobin 33.3 pg (27.0-31.2); Mean Corpuscular Volume 96.8 fl (80-94); Mean Platelet Volume 10.8 fl (7.4-10.4); Monocytes # 1.1 K/mm3 (0.1-1.0); Monocytes % 8.2 % (1.7-9.3); Neutrophils # 9.5 K/mm3 (1.8-7.8); Neutrophils % 73.2 % (37.0-80.0); Platelet Count 181 K/mm3 (142-424); Red Blood Count 4.71 M/mm3 (4.60-6.20); Red Cell Distribution Width 12.3 % (11.5-17.5)
[2024-04-05 07:49] LABS: Chloride 101 mmol/L (98-107)
--- NOTE | 2024-04-05 07:49 | EXP.DC.SUM ---
General Admission date:: 04/03/24 Discharge date: 04/05/24 HPI HPI HPI: This patient who had recently been in the hospital on 03/26/2024, he was here due to cholecystitis and pancreatitis. It was noted at that time that the patient had cholecystitis, pancreatitis and from a previous office note. His medications were being changed to where he was on going to be on Rybelsus. His labs abnormals was increased MCV and MCH with decreased MCHC blood count . he has elevated white count greater than 11 since 03/2023. Noting increased lipase since November 2023. Also some chronic kidney insufficiency, and per scans probable cirrhosis of the liver with normal liver function lab test., Also noting history of urine microalbuminemia greatly increased at times. Also noting that the patient is a pack-a-day smoker. He also had cardiac stents placed on 01/08. And per note from 03/23/2024 Dr. Menendez. That they were awaiting gallbladder surgery that was to be delayed for removal until July 06. This was to allow the stents to settle into the vessel garcia. Having spoken with the patient and the patient's sister that he has been just quite ill and miserable for about the past 4 to 5 months. Patient came to the emergency room after noticing his heart rate was in the 140s. He did not complain of shortness of breath. In the emergency room placed upon monitoring blood pressure initially 137/101. He appeared to be in atrial flutter versus atrial fib with RVR 146 bpm. Patient was cardioverted on 1 attempt. And went back to sinus rhythm. Patient also received medication to slow his heart rate. I have contacted the ER physician we have discussed the patient in detail going over his labs. Do feel that it would be prudent to place him in for observation at least overnight. To evaluate his medications in the morning. Upon his past medical review of going through charts. Noting his abnormal labs getting approximately a year ago.. With increase in lipase since November., With history of nausea sometimes diarrhea that it's main source being blamed upon gallbladder.. And from notes that they were going to wait until July 06 to remove gallbladder. for this stay will also consult cardiology and GI surgery. Reason for this is to come up with a plan to determine if the gallbladder may be removed sooner.. Also has put ia an pharmacology consult to evaluate possible undesirable side effects of the medication Rybelsus. Noting side effects are pancreatitis, and rare cases gallbladder dysfunction. Also nausea vomiting diarrhea. To make sure that this medication is not causing the above symptoms. Also noting per the patient's report is that he has other vessel that needs to be stented and this was going to be planned from about 1 month from today per patient.. Hospital Course Hospital Course Hospital Course: 74-year-old male who presented with palpitations. Found to be in A-fib with RVR. Cardioverted in the ER. Medicine consulted for admission. Has done well overnight, maintaining sinus rhythm. Will monitor for 24 hours with serial labs given elevation in lipase and concern for component of pancreatitis. Patient also appears severely constipated on imaging. Initiated bowel regimen. Cardiology evaluated during admission. Patient saw improvement in discomfort. Tolerating p.o. intake. Remained in sinus rhythm after cardioversion. Stable to discharge home with further management as an outpatient. Problems addressed as follows: A-fib with RVR Coronary artery disease -Patient came in in A-fib with RVR. Cardioversion performed in the ER. Did well and has maintained sinus rhythm since. Cardiology consulted and assisted with management during hospitalization. Will plan to continue metoprolol succinate 100 mg nightly and 200 mg daily. Resume home regimen of diltiazem 240 mg extended release daily. Continue HCTZ 25 mg daily, prasugrel 10 mg daily Crestor 40 mg daily, and spironolactone 25 mg daily -Monitor on telemetry. Continue home Eliquis 5 mg twice daily. Overall did well. Labs at baseline on day of discharge. Given his clinical improvement, stable discharge home with outpatient follow-up with cardiology Pancreatitis: Patient on Rybelsus for diabetes. Has had elevated lipase for a while. Also having constipation. Will discontinue Rybelsus due to its impact on his bowels and risk for pancreatitis. Lipase remained stable at 500. Tolerating p.o. intake. Would benefit from repeat lipase level in 1 to 2 weeks to monitor for normalization off of Rybelsus. Chronic constipation: Initiate MiraLAX daily and docusate senna twice daily. If no bowel movement by morning, will administer mag citrate orally and possibly an enema. Diabetes: Review of chart shows A1c's have traditionally been well-controlled less than 7.5. Given his age and comorbidities, ADA recommendations would suggest A1c less than 8. Treated with sliding scale insulin and fingersticks ACHS during admission. Recommend resuming his Janumet and continuing glipizide. Would discontinue Rybelsus given patient's persistently elevated lipase, constipation, suspected side effects secondary to that medication. Follow-up with PCP for further management. Cholelithiasis: Patient had heart cath within the past few months. Is following with surgeon in [place]. Due to have cholecystectomy performed sometime after June so prasugrel can be held. Total time spent on discharge 32 minutes in counseling, documentation, chart review, and direct care with patient. Exam Data for Last 24 hours Vital signs and Labs for Last 24 Hours: Temp Pulse Resp BP Pulse Ox O2 Del Method O2 Flow Rate 97.6 F 68 16 144/82 H 93 L Room Air 2 04/05/24 04:00 04/05/24 04:00 04/05/24 04:00 04/05/24 04:00 04/05/24 04:00 04/05/24 07:00 04/04/24 08:00 Laboratory Results - last 24 hr 04/04/24 07:25: WBC 12.5 H, RBC 4.52 L, Hgb 15.1, Hct 44.3, MCV 98.0 H, MCH 33.4 H, MCHC 34.1, RDW 12.5, Plt Count 181, MPV 10.8 H, Neut % (Auto) 72.3, Lymph % (Auto) 18.4, [place] % (Auto) 6.6, Eos % (Auto) 0.9, Baso % (Auto) 0.4, Neut # (Auto) 9.1 H, Lymph # (Auto) 2.3, [place] # (Auto) 0.8, Eos # (Auto) 0.1, Baso # (Auto) 0.1, Sodium 132 L, Potassium 4.5, Chloride 105, Carbon Dioxide 25, Anion Gap 6.5, BUN 33 H, Creatinine 1.70 H, Estimated Creat Clear 52, Estimated GFR 39 L, Est GFR ( Amer) 48 L, Glucose 217 H D, Calcium 9.1, Magnesium 2.6 H, Total Bilirubin 1.2, AST 41, ALT 84 H, Alkaline Phosphatase 153 H, Total Protein 6.3, Albumin 3.6, Globulin 2.7, Albumin/Globulin Ratio 1.3 04/04/24 10:51: POC Glucose 178 H 04/04/24 17:03: POC Glucose 258 H 04/04/24 20:54: POC Glucose 239 H 04/05/24 07:04: WBC 13.0 H, RBC 4.71, Hgb 15.7, Hct 45.6, MCV 96.8 H, MCH 33.3 H, MCHC 34.4, RDW 12.3, Plt Count 181, MPV 10.8 H, Neut % (Auto) 73.2, Lymph % (Auto) 16.2, [place] % (Auto) 8.2, Eos % (Auto) 0.9, Baso % (Auto) 0.3, Neut # (Auto) 9.5 H, Lymph # (Auto) 2.1, [place] # (Auto) 1.1 H, Eos # (Auto) 0.1, Baso # (Auto) 0.0 I & O for Last 24 hours: Intake & Output 04/02/24 04/03/24 04/04/24 04/05/24 23:59 23:59 23:59 23:59 Intake Total 1402 / 1402 Output Total 0 / 0 0 / 0 Balance 1402 / 1402 0 / 0 Weight 97.522 kg 97.522 kg 97.522 kg Microbiology Reports for the Last 24 Hours: Microbiology 04/03/24 21:48 Blood Blood Culture - Preliminary NO GROWTH AFTER 24 HOURS 04/03/24 21:34 Blood Blood Culture - Preliminary NO GROWTH AFTER 24 HOURS Constitutional Constitutional: no acute distress, obese and chronically ill appearing *Routine HEENT Exam Head: Present normocephalic Eye: Present EOMI and PERRL ENT: Present mucous membranes moist *Routine Neck Exam Neck: Present supple; Absent lymphadenopathy *Routine Respiratory Exam Respiratory: Present CTA bilaterally; Absent rhonchi, wheezes or crackles *Routine Cardiovascular Exam Cardiovascular: Present RRR *Routine Abdominal Exam Abdominal: Present soft and normoactive bowel sounds; Absent tenderness *Routine Rectal Exam Patient deferred: visual exam *Routine Exam Patient deferred: penile exam *Routine Extremities Exam Extremities: Absent cyanosis, clubbing or edema *Routine Skin Exam Skin: Present warm; Absent rash *Routine Neurological Exam Neurological: Present alert, oriented X3 and moving all extremities; Absent altered mental status Results Data Completed and Pending Labs on day of discharge: Labs from last 24 hours 04/05/24 04/04/24 04/04/24 07:04 20:54 17:03 WBC 13.0 H RBC 4.71 Hgb 15.7 Hct 45.6 MCV 96.8 H MCH 33.3 H MCHC 34.4 RDW 12.3 Plt Count 181 MPV 10.8 H Neut % (Auto) 73.2 Lymph % (Auto) 16.2 [place] % (Auto) 8.2 Eos % (Auto) 0.9 Baso % (Auto) 0.3 Neut # (Auto) 9.5 H Lymph # (Auto) 2.1 [place] # (Auto) 1.1 H Eos # (Auto) 0.1 Baso # (Auto) 0.0 Sodium Potassium Chloride Carbon Dioxide Anion Gap BUN Creatinine Estimated Creat Clear Estimated GFR Est GFR ( Amer) Glucose POC Glucose 239 H 258 H Calcium Magnesium Total Bilirubin AST ALT Alkaline Phosphatase Total Protein Albumin Globulin Albumin/Globulin Ratio 04/04/24 04/04/24 10:51 07:25 WBC 12.5 H RBC 4.52 L Hgb 15.1 Hct 44.3 MCV 98.0 H MCH 33.4 H MCHC 34.1 RDW 12.5 Plt Count 181 MPV 10.8 H Neut % (Auto) 72.3 Lymph % (Auto) 18.4 [place] % (Auto) 6.6 Eos % (Auto) 0.9 Baso % (Auto) 0.4 Neut # (Auto) 9.1 H Lymph # (Auto) 2.3 [place] # (Auto) 0.8 Eos # (Auto) 0.1 Baso # (Auto) 0.1 Sodium 132 L Potassium 4.5 Chloride 105 Carbon Dioxide 25 Anion Gap 6.5 BUN 33 H Creatinine 1.70 H Estimated Creat Clear 52 Estimated GFR 39 L Est GFR ( Amer) 48 L Glucose 217 H D POC Glucose 178 H Calcium 9.1 Magnesium 2.6 H Total Bilirubin 1.2 AST 41 ALT 84 H Alkaline Phosphatase 153 H Total Protein 6.3 Albumin 3.6 Globulin 2.7 Albumin/Globulin Ratio 1.3 Preliminary micro results at discharge 04/03/24 21:48 Blood Culture - Preliminary Blood NO GROWTH AFTER 24 HOURS 04/03/24 21:34 Blood Culture - Preliminary Blood NO GROWTH AFTER 24 HOURS DS: Diagnosis Discharge Diagnosis (1) Atrial flutter with rapid ventricular response: Status: Acute Code(s): I48.92 - Unspecified atrial flutter (2) Pancreatitis: Status: Acute Code(s): K85.90 - Acute pancreatitis without necrosis or infection, unspecified Qualifiers: Chronicity: chronic Pancreatitis type: unspecified pancreatitis type Qualified Code(s): K86.1 - Other chronic pancreatitis (3) Cirrhosis: Status: Acute Code(s): K74.60 - Unspecified cirrhosis of liver Qualifiers: Ascites presence: without ascites Hepatic cirrhosis type: unspecified hepatic cirrhosis Qualified Code(s): K74.60 - Unspecified cirrhosis of liver (4) Type 2 diabetes mellitus: Status: Acute Code(s): E11.9 - Type 2 diabetes mellitus without complications Qualifiers: Diabetes mellitus complication detail: with other circulatory complications Diabetes mellitus complication status: with circulatory complication Diabetes mellitus [employer] insulin use: with chcf use Qualified Code(s): E11.59 - Type 2 diabetes mellitus with other circulatory complications; Z79.4 - shelter (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 insulin (5) Coronary artery disease: Status: Acute Code(s): I25.10 - Atherosclerotic heart disease of [place] coronary artery without angina pectoris Qualifiers: Associated angina: without angina Coronary Disease-Associated Artery/Lesion type: [place] artery [place] vs. transplanted heart: [place] heart Qualified Code(s): I25.10 - Atherosclerotic heart disease of [place] coronary artery without angina pectoris (6) Leukocyte disorder: Status: Acute Code(s): D72.9 - Disorder of white blood cells, unspecified (7) Macrocytosis: Status: Acute Code(s): D75.89 - Other specified diseases of blood and blood-forming organs (8) Chronic renal insufficiency, stage I: Status: Acute Code(s): N18.1 - Chronic kidney disease, stage 1 (9) Gastroparesis: Status: Acute Code(s): K31.84 - Gastroparesis Meds Home Medications and Allergies Home Medications ?Medication ?Instructions ?Recorded ?Confirmed ?Type apixaban 5 mg tablet (Eliquis) 5 mg PO BID 30 days #60 tabs 12/18/23 04/03/24 Rx diltiazem HCl 240 mg 240 mg PO DAILY 30 days #30 caps 12/18/23 04/03/24 Rx capsule,extended release 24 hr glipizide 10 mg tablet 10 mg PO BID #60 tabs 12/18/23 04/03/24 Rx hydrochlorothiazide 25 mg tablet 25 mg PO DAILY 30 days #30 tabs 12/18/23 04/03/24 Rx metoprolol succinate 100 mg 100 mg PO HS 30 days #30 tabs 12/18/23 04/03/24 Rx tablet,extended release 24 hr metoprolol succinate 200 mg 200 mg PO DAILY #30 tabs 12/18/23 04/03/24 Rx tablet,extended release 24 hr pantoprazole 40 mg tablet,delayed 40 mg PO BID #60 tabs 12/18/23 04/03/24 Rx release rosuvastatin 40 mg tablet 40 mg PO DAILY #30 tabs 12/18/23 04/03/24 Rx sitagliptin phosphate 50 1 tab PO BID #60 tabs 12/18/23 04/03/24 Rx mg-metformin 1,000 mg tablet (Janumet) prasugrel 10 mg tablet (Effient) 10 mg PO DAILY 30 days #30 tabs 01/09/24 04/03/24 Rx spironolactone 25 mg tablet 25 mg PO DAILY #30 tabs 02/24/24 04/03/24 Rx (Aldactone) ondansetron HCl 4 mg tablet 4 mg PO Q8H #14 tabs 03/27/24 04/03/24 Rx sennosides 8.6 mg-docusate sodium 1 tab PO BID #30 tabs 04/05/24 Rx 50 mg tablet (Stimulant Laxative Plus) New Prescriptions to Start Prescriptions: sennosides-docusate sodium [Stimulant Laxative Plus] Parish Bah Allergies Allergy/AdvReac Type Severity Reaction Status Date / Time No Known Allergies Allergy Verified 03/23/24 09:04 Discharge Plan Disposition Patient Disposition: Home, Self-Care Condition: Fair Follow up Plan Follow up with: Otilio Menendez MD [Primary Care Provider] - 04/12/24 1:00 pm Ronen Hale MD [Staff Physician] - Enter time for follow up Prescriptions/Medication Reconciliation: New sennosides-docusate sodium [Stimulant Laxative Plus] 8.6-50 mg Tablet 1 tab PO BID Qty: 30 0RF Continued spironolactone [Aldactone] 25 mg tablet 25 mg PO DAILY Qty: 30 5RF glipizide 10 mg tablet 10 mg PO BID Qty: 60 5RF diltiazem HCl 240 mg capsule,extended release 24hr 240 mg PO DAILY 30 Days Qty: 30 5RF Eliquis 5 mg tablet 5 mg PO BID 30 Days Qty: 60 5RF hydrochlorothiazide 25 mg tablet 25 mg PO DAILY 30 Days Qty: 30 5RF metoprolol succinate 200 mg tablet extended release 24 hr 200 mg PO DAILY Qty: 30 5RF metoprolol succinate 100 mg tablet extended release 24 hr 100 mg PO HS 30 Days Qty: 30 5RF pantoprazole 40 mg tablet,delayed release (DR/EC) 40 mg PO BID Qty: 60 5RF rosuvastatin 40 mg tablet 40 mg PO DAILY Qty: 30 5RF Janumet 50-1,000 mg tablet 1 tab PO BID Qty: 60 5RF ondansetron HCl 4 mg tablet 4 mg PO Q8H Qty: 14 0RF prasugrel [Effient] 10 mg Tablet 10 mg PO DAILY 30 Days Qty: 30 6RF Discontinued Rybelsus 7 mg tablet 7 mg PO DAILY Qty: 30 5RF Problem Reconciliation Problems Reviewed?: Yes Patient Discharge Instructions ACTIVITY: Continue current activity DIET: continue same diet Patient Instructions: DI for Atrial Fibrillation, DI for Gastroparesis Print Language: Lao Providers Primary Care Provider: Otilio Menendez Admit Provider: Parish Bah Attending Provider: Parish Bah
[2024-04-05 07:50] LABS: Albumin Level 3.9 g/dl (3.5-5.0); Potassium 4.6 mmoL/L (3.5-5.1); Sodium 135 mmol/L (136-145)
[2024-04-05 07:52] LABS: Blood Urea Nitrogen 29 mg/dl (9-20); Creatinine Clearance Estimated 55 mL/min (50-200); Estimated Glomerular Filt Rate 42 ml/min (>60); GFR (African American) 51 ML/MIN (>60)
[2024-04-05 07:53] LABS: Alanine Aminotransferase 79 U/L (12-78); Albumin/Globulin Ratio 1.4 (1.1-1.8); Alkaline Phosphatase 165 U/L (38-126); Anion Gap 13.6 mEq/L (5-15); Aspartate Amino Transferase 57 U/L (17-59); Bilirubin,Total 1.6 mg/dl (0.2-1.3); Calcium 9.3 mg/dl (8.4-10.2); Carbon Dioxide 25 mmol/L (22.0-30.0); Globulin 2.8 g/dL (1.3-3.2); Glucose 216 mg/dl (74-100); Magnesium 2.1 mg/dl (1.6-2.3); Total Protein,Serum 6.7 g/dl (6.3-8.2)
[2024-04-05 08:00] VITALS: BP 143/82; PULSE 78; PULSE 80; RESP 19; TEMP 36.5; O2SAT 96
[2024-04-05 08:44] LABS: Lipase 534 U/L (23-300)
[2024-04-05] MEDS: METOPROLOL SUCCINATE XL 100MG TABLET 200 MG PO (09:03)
[2024-04-05] MEDS: POLYETHYLENE GLYCOL 3350 17 GM PACKET PO (09:03)
[2024-04-05] MEDS: PANTOPRAZOLE 40MG TABLET 40 MG PO (09:05)
[2024-04-05] MEDS: APIXABAN 5MG TABLET 5 MG PO (09:05)
[2024-04-05] MEDS: SPIRONOLACTONE 25MG TABLET 25 MG PO (09:05)
[2024-04-05] MEDS: SENNOSIDES 8.6MG/DOCUSATE 50MG TABLET 1 TAB PO (09:05)
[2024-04-05] MEDS: hydroCHLOROthiazide 25MG TABLET 25 MG PO (09:05)
[2024-04-05] MEDS: PRASUGREL 10MG TAB 10 MG PO (09:05)
[2024-04-05] MEDS: dilTIAZem ER 240MG CAPSULE 240 MG PO (09:05)
--- NOTE | 2024-04-05 09:38 | P.CONCA_ITS ---
History of Present Illness History of Present Illness Consult date: 04/05/24 Requesting physician: Parish Bah Consult reason: atrial fibrillation Chief complaint: A. fib with RVR Additional Medical History:: 1. Coronary artery disease -ADITYA to LAD, 01/2024 -DAPT with Effient and aspirin 2. Paroxysmal atrial fibrillation -Sees Dr. Guerra in [place] at [facility] -On Eliquis 3. CKD, stage III 4. Diabetes mellitus type 2 5. UIP pattern pulmonary fibrosis 6. Cirrhosis of the liver 7. Recurrent pancreatitis 8. Hypertension -Echocardiogram, 02/16/2024, normal EF with no significant valve disease 9. Renal artery stenosis, bilaterally -Renal duplex, 02/06/2024, greater than 60% stenosis bilaterally History of present illness: This patient who had recently been in the hospital on 03/26/2024, he was here due to cholecystitis and pancreatitis. It was noted at that time that the patient had cholecystitis, pancreatitis and from a previous office note. His medications were being changed to where he was on going to be on Rybelsus. His labs abnormals was increased MCV and MCH with decreased MCHC blood count . he has elevated white count greater than 11 since 03/2023. Noting increased lipase since November 2023. Also some chronic kidney insufficiency, and per scans probable cirrhosis of the liver with normal liver function lab test., Also noting history of urine microalbuminemia greatly increased at times. Also noting that the patient is a pack-a-day smoker. He also had cardiac stents placed on 01/08. And per note from 03/23/2024 Dr. Menendez. That they were awaiting gallbladder surgery that was to be delayed for removal until July 06. This was to allow the stents to settle into the vessel garcia. Having spoken with the patient and the patient's sister that he has been just quite ill and miserable for about the past 4 to 5 months. Patient came to the emergency room after noticing his heart rate was in the 140s. He did not complain of shortness of breath. In the emergency room placed upon monitoring blood pressure initially 137/101. He appeared to be in atrial flutter versus atrial fib with RVR 146 bpm. Patient was cardioverted on 1 attempt. And went back to sinus rhythm. Patient also received medication to slow his heart rate. I have contacted the ER physician we have discussed the patient in detail going over his labs. Do feel that it would be prudent to place him in for observation at least overnight. To evaluate his medications in the morning. Upon his past medical review of going through charts. Noting his abnormal labs getting approximately a year ago.. With increase in lipase since November., With history of nausea sometimes diarrhea that it's main source being blamed upon g allbladder.. And from notes that they were going to wait until July 06 to remove gallbladder. for this stay will also consult cardiology and GI surgery. Reason for this is to come up with a plan to determine if the gallbladder may be removed sooner.. Also has put ia an pharmacology consult to evaluate possible undesirable side effects of the medication Rybelsus. Noting side effects are pancreatitis, and rare cases gallbladder dysfunction. Also nausea vomiting diarrhea. To make sure that this medication is not causing the above symptoms. Also noting per the patient's report is that he has other vessel that needs to be stented and this was going to be planned from about 1 month from today per patient. The above per Dr. Bah The events above noted and confirmed with the patient. Since cardioversion patient has had no complaints. He has remained in sinus rhythm. Echocardiogram today preliminary results shows preserved ejection fraction. Troponins elevated during this admission but likely due to demand ischemia from remaining OM vessel that is best treated medically FROM January 2024. [facility] Disclaimer: The information contained in this section may have been updated after the patient was seen, as this information can be updated by other users. Medical History Transaminitis Sepsis without septic shock Nausea & vomiting Generalized abdominal pain Incomplete defecation Coronary artery calcification seen on CT scan Abnormal electrocardiogram [ECG] [EKG] Chest pain Hepatic cirrhosis Coronary artery disease Abdominal pain MARY (acute kidney injury) CKD (chronic kidney disease) Diabetes 1.5, managed as type 2 Acute hyperkalemia Fatty infiltration of liver Elbow pain History of rectal fissure Cirrhosis of liver Hepatic cirrhosis Abdominal pain Pneumonia ETD (eustachian tube dysfunction) Hypertrophy of both inferior nasal turbinates Unilateral hearing loss Nasal septal deviation Rib pain Skin infection Cough Smoking Tobacco abuse counseling Sinusitis Anal fissure History of hemorrhoids Renal insufficiency Prostate cancer GERD (gastroesophageal reflux disease) Torn Achilles tendon COPD (chronic obstructive pulmonary disease) Bronchitis Hyperlipidemia associated with type 2 diabetes mellitus Diabetes type 2, controlled Hypertension associated with diabetes Surgical History History of coronary artery stent placement History of prostate surgery Hx of hemorrhoidectomy History of hand surgery History of hernia repair History of colonoscopy History of tonsillectomy Family History Father Cancer Heart attack Stroke Mother Heart attack Stroke Social History (Updated 04/03/24 @ 23:43 by Lisa Garces RN) Smoking Status: Current every day smoker tobacco type: cigarettes packs per day: 1 alcohol intake: never substance use type: denies use current occupational status: retired Travel in the last 8 weeks: None household members: spouse housing: house marital status: education level: vocational service: No caffeine: Yes special roxanne needs: No do you feel safe at home: Yes victim of physical abuse: No victim of emotional abuse: No victim of sexual abuse: No would you like helpful sources: No Have you lived/traveled outside US in past 30 days?: No Contact w/someone who lives/traveled outside US past 30 days?: No Exposure to someone with infectious disease in past 14 days?: No Do you have a fever (greater than 100.4 F or 38 C)?: No Have you tested positive for COVID-19: No Exposed to someone with COVID-19 in past 14 days?: No Do you have a sore throat?: No Do you have a cough?: No Do you have any weakness?: No Do you have any diarrhea?: No Are you experiencing any unusual bleeding?: No Do you have any muscle aches/pain?: No Do you have any abdominal pain?: No Are you experiencing loss of taste or smell?: No Review of Systems Review of Systems Review of systems:: pertinent systems reviewed and negative unless documented below *Cardiovascular Cardiovascular: Denies chest pain and Reports dyspnea on exertion *Respiratory Respiratory: Reports dyspnea on exertion *Neurologic Neurologic: Reports as per HPI Exam Data for Last 24 hours Vital signs and Labs for Last 24 Hours: Temp Pulse Resp BP Pulse Ox O2 Del Method O2 Flow Rate 97.7 F 78 19 143/82 H 96 Room Air 2 04/05/24 08:00 04/05/24 08:00 04/05/24 08:00 04/05/24 08:00 04/05/24 08:00 04/05/24 08:00 04/04/24 08:00 Laboratory Results - last 24 hr 04/04/24 10:51: POC Glucose 178 H 04/04/24 17:03: POC Glucose 258 H 04/04/24 20:54: POC Glucose 239 H 04/05/24 07:04: WBC 13.0 H, RBC 4.71, Hgb 15.7, Hct 45.6, MCV 96.8 H, MCH 33.3 H , MCHC 34.4, RDW 12.3, Plt Count 181, MPV 10.8 H, Neut % (Auto) 73.2, Lymph % (Auto) 16.2, [place] % (Auto) 8.2, Eos % (Auto) 0.9, Baso % (Auto) 0.3, Neut # (Auto) 9.5 H, Lymph # (Auto) 2.1, [place] # (Auto) 1.1 H, Eos # (Auto) 0.1, Baso # (Auto) 0.0, Sodium 135 L, Potassium 4.6, Chloride 101, Carbon Dioxide 25, Anion Gap 13.6, BUN 29 H, Creatinine 1.60 H, Estimated Creat Clear 55, Estimated GFR 42 L, Est GFR ( Amer) 51 L, Glucose 216 H, Calcium 9.3, Magnesium 2.1 D, Total Bilirubin 1.6 H, AST 57 D, ALT 79 H, Alkaline Phosphatase 165 H, Total Protein 6.7, Albumin 3.9, Globulin 2.8, Albumin/Globulin Ratio 1.4, Lipase 534 H I & O for Last 24 hours: Intake & Output 04/02/24 04/03/24 04/04/24 04/05/24 11:59 11:59 11:59 11:59 Intake Total 222 / 222 1180 / 1180 Output Total 0 / 0 Balance 222 / 222 1180 / 1180 Weight 214 lb 15.987 oz 215 lb Microbiology Reports for the Last 24 Hours: Microbiology 04/03/24 21:48 Blood Blood Culture - Preliminary NO GROWTH AFTER 24 HOURS 04/03/24 21:34 Blood Blood Culture - Preliminary NO GROWTH AFTER 24 HOURS Constitutional Constitutional: no acute distress *Routine Respiratory Exam Respiratory: Present wheezes; Absent rhonchi *Routine Cardiovascular Exam Cardiovascular: Present RRR; Absent murmur, gallop or rubs *Routine Extremities Exam Extremities: Absent edema *Routine Neurological Exam Neurological: Present alert, oriented X3 and CN II-XII intact Meds Home Medications and Allergies Home Medications ?Medication ?Instructions ?Recorded ?Confirmed ?Type apixaban 5 mg tablet (Eliquis) 5 mg PO BID 30 days #60 tabs 12/18/23 04/03/24 Rx diltiazem HCl 240 mg 240 mg PO DAILY 30 days #30 caps 12/18/23 04/03/24 Rx capsule,extended release 24 hr glipizide 10 mg tablet 10 mg PO BID #60 tabs 12/18/23 04/03/24 Rx hydrochlorothiazide 25 mg tablet 25 mg PO DAILY 30 days #30 tabs 12/18/23 04/03/24 Rx metoprolol succinate 100 mg 100 mg PO HS 30 days #30 tabs 12/18/23 04/03/24 Rx tablet,extended release 24 hr metoprolol succinate 200 mg 200 mg PO DAILY #30 tabs 12/18/23 04/03/24 Rx tablet,extended release 24 hr pantoprazole 40 mg tablet,delayed 40 mg PO BID #60 tabs 12/18/23 04/03/24 Rx release rosuvastatin 40 mg tablet 40 mg PO DAILY #30 tabs 12/18/23 04/03/24 Rx sitagliptin phosphate 50 1 tab PO BID #60 tabs 12/18/23 04/03/24 Rx mg-metformin 1,000 mg tablet (Janumet) prasugrel 10 mg tablet (Effient) 10 mg PO DAILY 30 days #30 tabs 01/09/24 04/03/24 Rx spironolactone 25 mg tablet 25 mg PO DAILY #30 tabs 02/24/24 04/03/24 Rx (Aldactone) ondansetron HCl 4 mg tablet 4 mg PO Q8H #14 tabs 03/27/24 04/03/24 Rx sennosides 8.6 mg-docusate sodium 1 tab PO BID #30 tabs 04/05/24 Rx 50 mg tablet (Stimulant Laxative Plus) New Prescriptions to Start Prescriptions: sennosides-docusate sodium [Stimulant Laxative Plus] Parish Bah Allergies Allergy/AdvReac Type Severity Reaction Status Date / Time No Known Allergies Allergy Verified 03/23/24 09:04 Assessment and Plan *Assessment and plan (1) Atrial flutter with rapid ventricular response: Status: Acute Category: Medical Code(s): I48.92 - Unspecified atrial flutter (2) Coronary artery disease: Status: Acute Qualifiers: Coronary Disease-Associated Artery/Lesion type: [place] artery [place] vs. transplanted heart: [place] heart Associated angina: without angina Qualified Code(s): I25.10 - Atherosclerotic heart disease of [place] coronary artery without angina pectoris Category: Medical Code(s): I25.10 - Atherosclerotic heart disease of [place] coronary artery without angina pectoris (3) MOCK (nonalcoholic steatohepatitis): Status: Acute Category: Medical Code(s): K75.81 - Nonalcoholic steatohepatitis (MOCK) (4) Hypertension: Status: Acute Qualifiers: Hypertension type: primary hypertension Qualified Code(s): I10 - Essential (primary) hypertension Category: Medical Code(s): I10 - Essential (primary) hypertension (5) Type 2 diabetes mellitus: Status: Acute Qualifiers: Diabetes mellitus termite control representative insulin use: with fdc use Diabetes mellitus complication status: with circulatory complication Diabetes mellitus complication detail: with other circulatory complications Qualified Code(s): E11.59 - Type 2 diabetes mellitus with other circulatory complications; Z79.4 - intermodal dispatcher (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 insulin Category: Medical Code(s): E11.9 - Type 2 diabetes mellitus without complications (6) Chronic constipation: Status: Acute Category: Medical Code(s): K59.09 - Other constipation (7) Gastroparesis: Status: Acute Category: Medical Code(s): K31.84 - Gastroparesis (8) Pancreatitis: Status: Acute Qualifiers: Chronicity: chronic Pancreatitis type: unspecified pancreatitis type Qualified Code(s): K86.1 - Other chronic pancreatitis Category: Medical Code(s): K85.90 - Acute pancreatitis without necrosis or infection, unspecified (9) NSTEMI (non-ST elevated myocardial infarction): Status: Acute Category: Medical Code(s): I21.4 - Non-ST elevation (NSTEMI) myocardial infarction Plan 1. A. fib with RVR, cardioverted to NSR -continue combo of metoprolol and diltiazem -keep follow up with Dr. Aasbo in [place] in July -Continue Eliquis 5 mg twice daily 2. CAD with recent LAD stent, 01/2024, on Effient 10 mg day -Elevated troponins this admission felt secondary to demand ischemia from the A-fib with RVR -Patient has known first OM disease best managed medically 3. MOCK 4. Pancreatitis 5. Type 2 diabetes mellitus Gastroparesis with chronic constipation Preliminary echocardiogram today shows preserved ejection fraction with no significant valve disease. Patient stable from a cardiac standpoint for discharge home. Resume home medications Eliquis 5 mg twice daily Diltiazem CD2 140 mg daily Metoprolol 200 mg in the morning, 100 mg in the evening Atorvastatin 80 mg daily Spironolactone 25 mg daily Hydrochlorothiazide 25 mg daily Follow-up in our office as previously scheduled next month. He will keep his appointment with Dr. Tan next week for GI evaluation.
--- NOTE | 2024-04-05 11:04 | HMH.PHAINT1 ---
Pharmacy Intervention Comments: Counselled patient on new medications prior to discharge.
[2024-04-05 17:04] LABS: POC Glucose,Bedside 209 (70-110)
--- NOTE | 2024-04-06 11:04 | SW/DCPLANNER ---
Spoke with patient on the phone. Patient stated that he is doing great other than being sore. Patient stated that he is aware of his upcoming appointments and that he was able to get his new medicine picked up yesterday. Patient stated that he has no concerns or questions at this time. Gladys Bridges
== END 2024-04-05 11:55 | disposition home or self-care (01) ==
LOC: ER 22:43 → 2ND 22:45
PROVIDERS: Nurse Practitioner Family; Admitting Provider Internal Medicine Adolescent Medicine; Emergency Provider Emergency Medicine; PCP Family Medicine; Visit Provider Internal Medicine Adolescent Medicine
DX: I48.20 Chronic atrial fibrillation, unspecified (principal); Z79.01 Long term (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 anticoagulants; I12.9 Hypertensive chronic kidney disease with stage 1 through stage 4 chronic kidney disease, or unspecified chronic kidney disease; K86.1 Other chronic pancreatitis; K74.60 Unspecified cirrhosis of liver; E11.59 Type 2 diabetes mellitus with other circulatory complications; Z79.4 Long term (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 insulin; I25.10 Atherosclerotic heart disease of native coronary artery without angina pectoris; D72.9 Disorder of white blood cells, unspecified; N18.1 Chronic kidney disease, stage 1; K31.84 Gastroparesis; K59.09 Other constipation; K75.81 Nonalcoholic steatohepatitis (NASH); E11.22 Type 2 diabetes mellitus with diabetic chronic kidney disease; E78.5 Hyperlipidemia, unspecified
CPT/HCPCS: 36415; 71045; 74177; 80053; 82962; 83605; 83690; 83735; 83880; 84436; 84443; 84484; 85007; 85025; 85027; 85610; 85730; 87040; 87389; 92960; 93005; 93306; 99291; G0378; J1885; J3475; Q9967

== ENCOUNTER 2024-04-15 11:35 | Outpatient (CLI) | payer MEDICARE, BC, SELFPAY ==
[2024-04-15 16:59] LABS: Basophils % 0.4 % (0.1-2.0); Eosinophils # 0.1 K/mm3 (0.0-0.4); Eosinophils % 1.3 % (0.1-12.0); Lymphocytes % 18.1 % (10-50); Mean Corpuscular HGB Conc 32.6 g/dL (31.8-35.4); Mean Corpuscular Hemoglobin 33.9 pg (27.0-31.2); Mean Corpuscular Volume 104.1 fl (80-94); Mean Platelet Volume 11.1 fl (7.4-10.4); Monocytes # 1.1 K/mm3 (0.1-1.0); Monocytes % 9.5 % (1.7-9.3); Neutrophils # 7.8 K/mm3 (1.8-7.8); Neutrophils % 70.1 % (37.0-80.0); Platelet Count 239 K/mm3 (142-424); Red Blood Count 4.42 M/mm3 (4.60-6.20); Red Cell Distribution Width 13.1 % (11.5-17.5); White Blood Count 11.1 K/mm3 (4.8-10.8)
[2024-04-15 17:23] LABS: Alanine Aminotransferase 33 U/L (12-78); Albumin Level 4.2 g/dl (3.5-5.0); Albumin/Globulin Ratio 1.8 (1.1-1.8); Alkaline Phosphatase 102 U/L (38-126); Anion Gap 15.2 mEq/L (5-15); Aspartate Amino Transferase 44 U/L (17-59); Bilirubin,Total 1.2 mg/dl (0.2-1.3); Blood Urea Nitrogen 18 mg/dl (9-20); Calcium 9.4 mg/dl (8.4-10.2); Carbon Dioxide 23 mmol/L (22.0-30.0); Chloride 104 mmol/L (98-107); Estimated Glomerular Filt Rate 37 ml/min (>60); GFR (African American) 45 ML/MIN (>60); Globulin 2.3 g/dL (1.3-3.2); Glucose 186 mg/dl (74-100); Lipase 447 U/L (23-300); Potassium 5.2 mmoL/L (3.5-5.1); Sodium 137 mmol/L (136-145); Total Protein,Serum 6.5 g/dl (6.3-8.2)
[2024-04-15 18:04] LABS: Prostate Specific Ag, Diagnost < 0.064 ng/ml (0.0-4.0)
== END 2024-04-15 23:59 | disposition home or self-care (01) ==
LOC: LAB.DROPOF 04-16 10:07
PROVIDERS: PCP Family Medicine; Visit Provider Family Medicine
DX: Z12.5 Encounter for screening for malignant neoplasm of prostate (principal); Z85.46 Personal history of malignant neoplasm of prostate; I10 Essential (primary) hypertension; K86.1 Other chronic pancreatitis; F17.210 Nicotine dependence, cigarettes, uncomplicated
CPT/HCPCS: 80053; 83690; 84153; 85025

== ENCOUNTER 2024-06-22 07:48 | Outpatient (CLI) | payer MEDICARE, BC, SELFPAY ==
--- NOTE | 2024-06-22 07:49 | US_ITS ---
FINAL REPORT TECHNIQUE: Multiple transverse and longitudinal images CLINICAL HISTORY: cirrhosis monitoring COMPARISON: 12/09/2023 FINDINGS: There is an echogenic focus in the proximal gallbladder, 6 mm in size, also seen on the prior ultrasound of 2023. This may represent a stone without shadowing or a gallbladder polyp. No biliary ductal dilatation is appreciated. No fluid collections are seen. Fatty infiltration of the liver is once again present, without obvious changes of cirrhosis. The hepatic vasculature is patent with normal directional flow. Limited portions of the right kidney are unremarkable. IMPRESSION: No liver mass or evidence of portal hypertension. Fatty liver without obvious changes of cirrhosis. Echogenic focus in the proximal gallbladder, stable since the prior exam, that may represent a stone without shadowing or a polyp. Reviewed, Interpreted and Dictated by Dev Martinez MD Transcribed by Machelle Aceves Authenticated and [facility]
== END 2024-06-22 23:59 | disposition home or self-care (01) ==
LOC: RAD 07:49
PROVIDERS: PCP Family Medicine; Visit Provider Nurse Practitioner Family
DX: K75.81 Nonalcoholic steatohepatitis (NASH) (principal); K74.60 Unspecified cirrhosis of liver
CPT/HCPCS: 76705

== ENCOUNTER 2024-06-29 09:43 | Outpatient (CLI) | payer MEDICARE, BC, SELFPAY ==
[2024-06-29 10:04] LABS: Basophils % 0.3 % (0.1-2.0); Eosinophils # 0.2 K/mm3 (0.0-0.4); Eosinophils % 1.1 % (0.1-12.0); Hematocrit 47.3 % (42.0-52.0); Lymphocytes # 2.1 K/mm3 (0.7-4.5); Lymphocytes % 14.9 % (10-50); Mean Corpuscular HGB Conc 33.8 g/dL (31.8-35.4); Mean Corpuscular Volume 100.4 fl (80-94); Mean Platelet Volume 11.8 fl (7.4-10.4); Monocytes # 1.2 K/mm3 (0.1-1.0); Monocytes % 8.3 % (1.7-9.3); Neutrophils # 10.5 K/mm3 (1.8-7.8); Platelet Count 192 K/mm3 (142-424); Red Blood Count 4.71 M/mm3 (4.60-6.20)
[2024-06-29 10:11] LABS: INR 0.95 (0.9-1.1); Prothrombin Time 10.7 seconds (10.1-12.5)
[2024-06-29 10:12] LABS: Ammonia < 9 umol/L (9-30)
[2024-06-29 10:21] LABS: Albumin Level 4.9 g/dl (3.5-5.0)
[2024-06-29 10:22] LABS: Chloride 99 mmol/L (98-107); Potassium 5.4 mmoL/L (3.5-5.1); Sodium 135 mmol/L (136-145)
[2024-06-29 10:24] LABS: Alanine Aminotransferase 35 U/L (12-78); Alkaline Phosphatase 99 U/L (38-126); Anion Gap 11.4 mEq/L (5-15); Aspartate Amino Transferase 47 U/L (17-59); Bilirubin,Total 0.9 mg/dl (0.2-1.3); Blood Urea Nitrogen 27 mg/dl (9-20); Carbon Dioxide 30 mmol/L (22.0-30.0); Estimated Glomerular Filt Rate 39 ml/min (>60); GFR (African American) 48 ML/MIN (>60)
[2024-06-29 10:25] LABS: Albumin/Globulin Ratio 2.1 (1.1-1.8); Calcium 10.3 mg/dl (8.4-10.2); Globulin 2.3 g/dL (1.3-3.2); Glucose 279 mg/dl (74-100); Iron 154 ug/dL (49-181); Total Protein,Serum 7.2 g/dl (6.3-8.2)
[2024-06-29 10:34] LABS: Total Iron Binding Capacity 415 ug/dL (261-462)
[2024-06-29 11:01] LABS: Ferritin 24.3 ng/ml (17.9-464)
== END 2024-06-29 23:59 | disposition home or self-care (01) ==
LOC: LAB 09:44
PROVIDERS: PCP Family Medicine; Visit Provider Nurse Practitioner Family
DX: K74.60 Unspecified cirrhosis of liver (principal)
CPT/HCPCS: 36415; 80053; 82105; 82140; 82728; 83540; 83550; 85025; 85610

== ENCOUNTER 2024-12-27 15:15 | Outpatient (CLI) | payer MEDICARE, BC, SELFPAY ==
--- OUTSIDE RECORDS SUMMARY | 2024-11-19 12:30 | XMS_ITS | Encounter Summary ---
[facility] Address [address] [place] [address] Care Team Providers Care Gore Seamer Name Role Phone Otilio Menendez MD Primary Care Provider [phone]- [phone] Encounter Details Date Type Department Care Team (Latest Contact Info) Description 11/19/2024 12:30 PM EDT Pre-Admission Testing [facility] [address] [place] [address] PAF (paroxysmal atrial fibrillation) Social History Tobacco Use Types Packs/Day Years Used Date Smoking Tobacco: Every Day Cigarettes 1.5 62.7 Started: 1963 Passive Smoke Exposure: Current Smokeless Tobacco: Never Tobacco Cessation:Ready to Q uit: No; Counseling Given: Not Answered Alcohol Use Standard Drinks/Week Comments Not Currently 0 (1 standard drink = 0.6 oz pur e alcohol) [facility] Utilities Answer Date Recorded In the past 12 months has [employer], gas, oil, or water LS9 threatened to shut off services in your home? No 08/24/2024 AUDIT-C Answer Date Recorded Q1: How often do you have a drink containing alcohol? Never 08/23/2024 Q2: How many drinks containi ng alcohol do you have on a typical day when you are drinking? Patient does not drink Q3: How often do you have si x or more drinks on one occasion? Never 08/23/2024 Exercise Vital Sign Answer Date Recorde d On average, how many days pe r week do you engage in moderate to strenuous exercise (like a brisk walk)? 5 days 08/24/2024 On average, how many minutes do you engage in exercise at this level? 10 min 08/24/2024 Hunger Vital Sign Answer Date Recorded Within the past 12 months, y ou worried that your food would run out before you got the money to buy more. Never true 08/25/19 25 Within the past 12 months, t he food you bought just didn't last and you didn't have money to get more. Never true 08/24/2024 PRAPARE - Transportation Answer Date Re corded In the past 12 months, has l ack of transportation kept you from medical appointments or from getting medications? No 08/06 In the past 12 months, has l ack of transportation kept you from meetings, work, or from getting things needed for daily living? No 08/24/2024 Abuse Screen Answer Date Recorded Feels Unsafe at Home or Work/School no 11/19/2024 Feels Threatened by Someone no 11/05 Does Anyone Try to Keep You From Having Contact with Others or Doing Things Outside Your Home? no 11/19/2024 Physical Signs of Abuse Present no 11/19/2024 Housing Stability Answer Date Recorded Current Living Arrangements home 08/06 Potentially Unsafe Housing Conditions none 08/24/2024 Family and Community Support Answer Clayton e Recorded If for any reason you need h elp with day-to-day activities such as bathing, preparing meals, shopping, managing finances, etc., do you get the help you need? I get all the help I need 08/24/2024 Lonely or Isolated Not on file 08/24/2024 Employment Answer Date Recorded Do you want help finding or keeping work or a job? I do not need or want help 08/24/2024 Disabilities Answer Date Recorded Difficulty Concentrating, Remembering or Making Decisions no 08/23/2024 Difficulty Managing Errands Independently no 08/23/2024 Education Answer Date Recorded Do you want help with school or training? For example, starting or completing job training or getting a high school diploma, GED or equivalent No 11/19/2024 Preferred Language [place] 11/19/2024 Sex and Gender Information Value Date Recorded Sex Assigned at Not on file Legal Sex Male 11:07 AM EDT Gender Identity Not on file Sexual Orientation Not on file documented as of this encounter Plan of Treatment Upcoming Encounters Date Type Department Care Team (Late st Contact Info) Description 02/28/2025 11:00 AM EST Office Visit [facility] [address] [facility] [address] [place] [phone] Mark Guerra, DO [address] [place] [address] 06/06/2025 10:30 AM EST Office Visit [facility] [address] [facility] [address] [place] [phone] Kirby Stack PA [address] [place], [place] [id number] 12/05/2025 11:30 AM EDT Office Visit [facility] [address] [facility] [place] [address] Mark Guerra, DO [address] [place], [place] [id number] documented as of this encounter Procedures Procedure Name Priority Date/Time Associated Diagnosis Comments CBC (NO DIFF) Routine 11/19/2024 12:12 PM EDT PAF (paroxysmal atrial fibrillation) BASIC METABOLIC PANEL Routine 11/19/2024 12:12 PM EDT PAF (paroxysmal atrial fibrillation) documented in this encounter Results * (ABNORMAL) Basic Metabolic Panel (11/19/2024 12:12 PM EDT) Glucose 87 65 - 99 mg/dL 11/19/2024 12:58 PM EDT [facility] BUN 23.2(H) 8.0 - 23.0 mg/dL 11/19/2024 12:58 PM EDT [facility] Creatinine 1.64(H) 0.76 - 1.27 mg/dL 11/19/2024 12:58 PM EDT [facility] Sodium 137 136 - 145 mmol/L 11/19/2024 12:58 PM EDT [facility] Potassium 4.7 3.5 - 5.2 mmol/L 11/19/2024 12:58 PM EDT [facility] Comment:Slight hemolysis det ected by analyzer. Result may be falsely elevated. Chloride 103 98 - 107 mmol/L 11/19/2024 12:58 PM EDT [facility] CO2 25.0 22.0 - 29.0 mmol/L 11/19/2024 12:58 PM EDT [facility] Calcium 9.3 8.6 - 10.5 mg/dL 11/19/2024 12:58 PM EDT [facility] BUN/Creatinine Ratio 14.1 7.0 - 25.0 11/19/2024 12:58 PM EDT [facility] Anion Gap 9.0 5.0 - 15.0 mmol/L 11/19/2024 12:58 PM EDT [facility] eGFR 43.4(L) >60.0 mL/min/1.7 3 11/19/2024 12:58 PM EDT [facility] Blood Venipuncture / Unknown 11/19/2024 12:12 PM EDT 11/19/2024 12:31 PM EDT Narrative [facility] - 11/19/2024 12:58 PM EDT GFR Categories in Chronic Kidney Disease (CKD) GFR Category GFR (mL/min/1.73) Interpretation G1 90 or greater Normal or high (1) G2 60-89 Mild decrease (1) G3a 45-59 Mild to moderate decrease G3b 30-44 Moderate to severe decrease G4 15-29 Severe decrease G5 14 or less Kidney failure (1)In the absence of evidence of kidney disease, neither GFR category G1 or G2 fulfill the criteria for CKD. eGFR calculation 2020 CKD-EPI creatinine equation, which does not include race as a factor Donya Davies APRN LAB BLOOD ORDERABLES Final Result [facility]
[address] [place] [address], * (ABNORMAL) CBC (No Diff) (11/19/2024 12:12 PM EDT) WBC 13.52(H) 3.40 - 10.80 10*3/mm3 11/19/2024 12:43 PM EDT [facility] RBC 4.82 4.14 - 5.80 10*6/mm3 11/19/2024 12:43 PM EDT [facility] Hemoglobin 15.9 13.0 - 17.7 g/dL 11/19/2024 12:43 PM EDT [facility] Hematocrit 48.2 37.5 - 51.0 % 11/19/2024 12:43 PM EDT [facility] MCV 100.0(H) 79.0 - 97.0 fL 11/19/2024 12:43 PM EDT [facility] MCH 33.0 26.6 - 33.0 pg 11/19/2024 12:43 PM EDT [facility] MCHC 33.0 31.5 - 35.7 g/dL 11/19/2024 12:43 PM EDT [facility] RDW 13.6 12.3 - 15.4 % 11/19/2024 12:43 PM EDT [facility] RDW-SD 50.3 37.0 - 54.0 fl 11/19/2024 12:43 PM EDT [facility] MPV 11.4 6.0 - 12.0 fL 11/19/2024 12:43 PM EDT [facility] Platelets 184 140 - 450 10*3/mm3 11/19/2024 12:43 PM EDT [facility] Blood Venipuncture / Unknown 11/19/2024 12:12 PM EDT 11/19/2024 12:31 PM EDT Donya Davies APRN LAB BLOOD ORDERABLES Final Result [facility]
[address] [place] [id number], documented in this encounter Visit Diagnoses Diagnosis PAF (paroxysmal atrial fibrillation) Atrial fibrillation documented in this encounter Care Teams Gore Seamer Relationship Specialty Start Date End Date Otilio Menendez MD [address] [place] [address] PCP - General Family Medicine 10/29/22 documented as of this encounter
--- OUTSIDE RECORDS SUMMARY | 2024-11-19 13:19 | XMS_ITS | Encounter Summary ---
Author Organization [facility] Address [address] [place] [address] Care Team Providers Care Angular Js Developer Name Role Phone Otilio Menendez MD Primary Care Provider [phone]- [phone] Reason for Referral * MRI/CAT/PET Scan (Routine) - Closed Specialty Diagnoses / Procedures Referred By Zainabac t Referred To Contact Radiology Diagnoses PAF (paroxysmal atrial fibrillation) Procedures CT Angiogram Chest Kirby Stack PA [address] [facility] [address] [place] [address] [place] [address] Phone: tel: fax: Referral ID Status Reason Start Date Expiration Date Visits Re quested Visits Authorized [id number] Closed 11/19/2024 12/06/2025 1 1 Reason for Visit * MRI/CAT/PET Scan (Routine) - Closed Specialty Diagnoses / Procedures Referred By Contac t Referred To Contact Radiology Diagnoses PAF (paroxysmal atrial fibrillation) Procedures CT Angiogram Chest Kirby Stack PA [address] [facility] [address] [place] [address] Phone: tel: fax: Referral ID Status Reason Start Date Expiration Date Visits Re quested Visits Authorized [id number] Closed 11/19/2024 12/06/2025 1 1 Encounter Details Date Type Department Care Team (Latest Contact Info) Description 11/19/2024 1:19 PM EDT - 11/19/2024 11:59 PM EDT Hospital Encounter [facility] AT [address] [place] [address] PAF (paroxysmal atrial fibrillation) Discharge Disposition: Home or Self Care Social History Tobacco Use Types Packs/Day Years Used Date Smoking Tobacco: Every Day Cigarettes 1.5 62.7 Started: 1963 Passive Smoke Exposure: Current Smokeless Tobacco: Never Alcohol Use Standard Drinks/Week Comments Not Currently 0 (1 standard drink = 0.6 oz pur e alcohol) [facility] Utilities Answer Date Recorded In the past 12 months has th e [employer], gas, oil, or water [employer] threatened to shut off services in your [...] GED or equivalent No 11/19/2024 Preferred Language Surinamese 11/19/2024 Sex and Gender Information Value Date [...] 02/28/2025 11:00 AM EST Office Visit [facility] [address] [facility] [address] [place] [address] Mark Guerra DO [address] [facility] [address] [address] 06/06/2025 10:30 AM EST Office Visit [facility] [address] [facility] [address] [place] [address] Kirby Stack PA [address] [facility] [address] [facility] [address] [place] [address] 12/05/2025 11:30 AM EDT Office Visit [facility] [address] [facility] [address] [place] [address] Charlie Mark Bolivar, DO [address] [place] [address] documented as of this encounter Procedures Procedure [...] MD 11/19/2024 2:50 PM EDT Workstation ID: [id number] Narrative 11/19/2024 2:[address] ANGIOGRAM [...] MD 11/19/2024 2:50 PM EDT Workstation ID: [id number] JEANNE Perez [address] ORDERABLES Final Re [...] mL documented in this encounter Care Teams Angular Js Developer Relationship Specialty Start Date End Date Otilio Menendez MD [address] [place] [address] [place] [address] PCP - General Family Medicine 10/29/22 documented as of this encounter
--- OUTSIDE RECORDS SUMMARY | 2024-11-25 08:24 | XMS_ITS | Encounter Summary ---
Author Organization [facility] Address [address] [place] [address] Care Team Providers Care Accounts Payable Accountant Name Role Phone Otilio Menendez MD Primary Care Provider [phone] Reason for Referral * Invasive Procedures (Routine) - Pending Review Specialty Diagnoses / Procedures Referred By Lawanda jones Referred To Contact Diagnoses PAF (paroxysmal atrial fibrillation) Procedures EP/CRM Study Kirby Stack PA [address] [place] [id number] Phone: tel: fax: Referral ID Status Reason Start Date Expiration Date V isits Requested Visits Authorized Pending Review 09/17/2024 12/17/2025 1 1 Reason for Visit * Auth/Cert Specialty Diagnoses / Procedures Referred By Lawanda jones Referred To Contact Diagnoses PAF (paroxysmal atrial fibrillation) afib Procedures SC ABLATE L/R ATRIAL FIBRIL W/ISOLATED PULM VEIN SC COMPRE EP EVAL ABLTJ ATR FIB PULM VEIN ISOLATION SC INTRACARDIAC ELECTROPHYSIOLOGIC 3D MAPPING SC COMPRE EP EVAL W/L ATRIAL PACG&REC C SINS/L ATR SC PROGRAMMED STIMJ & PACG AFTER IV DRUG INFUSION SC COMPRE EP EVAL W/LEFT VENTRICULAR PACING/REC SC N-INVAS AUGMNT ARRHYT FREDA RAJAN CAR ARRHYT SIMUL SC ICAR CATH ABLATION DISCRETE MECHANISM ARRHYTHMIA SC CLOSURE DEV, VASC Ablation atrial fibrillation; PFA; Rhythmia; General anesthesia; Preop CT; Do not hold anticoagulation Referral ID Status Reason Start Date Expiration Date Visits Re quested Visits Authorized [id number] 1 1 Encounter Details Date Type Department Care Team (Late st Contact Info) Description 11/25/2024 8:24 AM EDT - 11/25/2024 3:56 PM EDT Hospital Encounter [facility] [address] [place] [id number] Mark Guerra, DO [address] [place] [address] PAF (paroxysmal atrial fibrillation) Discharge Disposition: Home or Self Care Social History Tobacco Use Types Packs/Day Years Used Date Smoking Tobacco: Every Day Cigarettes 1.5 62.7 Started: 1963 Passive Smoke Exposure: Current Smokeless Tobacco: Never Alcohol Use Standard Drinks/Week Comments Not Currently 0 (1 standard drink = 0.6 oz pur e alcohol) [facility] Utilities Answer Date Recorded In the past 12 months has e [employer], gas, oil, or water [employer] threatened to shut off services in your home? No 08/24/2024 AUDIT-C Answer Date Recorded Q1: How often do you have a drink containing alcohol? Never 11/25/2024 Q2: How many drinks containi ng alcohol do you have on a typical day when you are drinking? Patient does not drink Q3: How often do you have si x or more drinks on one occasion? Never 11/25/2024 Exercise Vital Sign Answer Date Recorde d [...] Answer Date Recorded Current Living Arrangements home 11/06 Potentially Unsafe Housing Conditions none 11/25/2024 Family and Community Support Answer Clayton e [...] Difficulty Concentrating, Remembering or Making Decisions no 11/25/2024 Difficulty Managing Errands Independently no 11/25/2024 Education Answer Date Recorded Do you want help with school or training? For example, starting or completing job training or getting a high school diploma, GED or equivalent No 11/19/2024 Preferred Language Malaysian 11/19/2024 Sex and Gender Information Value Date Recorded Sex Assigned at Not on file Legal Sex Male 11:07 AM EDT Gender Identity Not on file Sexual Orientation Not on file documented as of this encounter Last Filed Vital Signs Vital Sign Reading Time Taken Comments Blood Pressure 133/74 11/25/2024 2:45 PM EDT post ambulation Pulse 56 11/25/2024 2:45 PM EDT Temperature 36.4 C (97.5 F) 11/25/2024 11:33 AM EDT Respiratory Rate 19 11/25/2024 11:3 3 AM EDT Oxygen Saturation 92% 11/25/2024 2:4 5 PM EDT Inhaled Oxygen Concentration - - Weight 102 kg (224 lb 10.4 oz) 11/25/2024 8:50 AM EDT Height 182.9 cm (6') 11/25/2024 8:50 AM EDT Body Mass Index 30.47 11/25/2024 8:50 AM EDT documented in this encounter Functional Status * Question Answer Date of Assessment Author 1. Wish to be (Past 1 Month) No 025 8:50 AM EDT Abby Bernard RN 2. Non-Specific Active Suici delores Thoughts (Past 1 Month) No 11/25/2024 8:50 AM EDT Abby Bernard RN * Calculated C-SSRS Risk Score (Lifetime/Recent) Answer Date of Assessment Author No Risk Indicated 11/25/2024 8:50 AM EDT Abby Bernard RN * [place] Suicide Severity Rating Scale (Screener/Recent Self-Report) Question Answer Date of Assessment Author 6. Suicidal Behavior (Lifetime) No 8:50 AM EDT Abby Bernard RN documented as of this encounter Discharge Instructions * Attachments The following attachments cannot be sent through Care Everywhere. * Cardiac Ablation (Malaysian) * Femoral Site Care (Malaysian) * General Anesthesia Adult Care After (Malaysian) * Rivaroxaban Tablets (Malaysian) * Atrial Fibrillation (Malaysian) documented in this encounter Medications at Time of Discharge [...] PO Take 1 tablet by mouth Daily. Toprol XL 200 MG 24 hr tablet Take 1 tablet by mouth Daily. 90 tablet 1 08/06/2023 11/30/19 25 documented as of this encounter H&P Notes * Donya Davies APRN - 11/25/2024 8:55 AM EDT Patient Care Team: Otilio Menendez MD as PCP - General (Family Medicine) Rylee Cordero APRN as Nurse Practitioner (Nurse Practitioner) Mark Guerra DO as Consulting Physician (Cardiology) Reggie Ndiaye PA-C as Physician It Administrator (Cardiology) Chief complaint paroxysmal atrial fibrillation Subjective History of Present Illness Patient is a 74-year-old gentleman with a history of highly symptomatic recurrent paroxysmal atrialfibrillation as well as typical atrial flutter. He presents today to undergo pulmonary vein ablation by Dr. Guerra. Past Medical History: Diagnosis Date Arrhythmia Atrial fibrillation Qiu's esophagus Colorectal polyps Coronary artery disease Diabetes mellitus Diverticulitis Gastritis Hiatal hernia Hx of adenomatous polyp of colon Hyperlipidemia Hypertension Prostate cancer Sigmoid diverticulosis Sleep apnea mask worn Tobacco use 08/23/2024 Torn Achilles tendon 08/06/2023 Wears glasses RX Wears partial dentures Past Surgical History: Procedure Laterality Date CARDIAC CATHETERIZATION 01/04/2024 2 stents CHOLECYSTECTOMY N/A 08/23/2024 Procedure: CHOLECYSTECTOMY LAPAROSCOPIC; Surgeon: Alfonso Jack MD; Location: [facility]; Service: General; Laterality: N/A; COLONOSCOPY FOREIGN BODY REMOVAL Right wrist HERNIA REPAIR x 4 TONSILLECTOMY UPPER GASTROINTESTINAL ENDOSCOPY 03/09/2013 History reviewed. No pertinent family history. Social History Tobacco Use Smoking status: Every Day Current packs/day: 1.50 Average packs/day: 1.5 packs/day for 62.6 years (94.0 ttl pk-yrs) Types: Cigarettes Start date: 1963 Passive exposure: Current Smokeless tobacco: Never Vaping Use Vaping status: Never Used Substance Use Topics Alcohol use: Not Currently Drug use: Never Objective Vital Signs Physical Exam Vitals reviewed. Constitutional: Appearance: Normal appearance. He is normal weight. HENT: Head: Normocephalic and atraumatic. Mouth/Throat: Mouth: Mucous membranes are moist. Pharynx: Oropharynx is clear. Cardiovascular: Rate and Rhythm: Normal rate. Rhythm irregular. Pulses: Normal pulses. Heart sounds: Normal heart sounds. Pulmonary: Effort: Pulmonary effort is normal. Breath sounds: Normal breath sounds. Abdominal: General: Abdomen is flat. Palpations: Abdomen is soft. Musculoskeletal: Right lower leg: No edema. Left lower leg: No edema. Skin: General: Skin is warm and dry. Neurological: General: No focal deficit present. Mental Status: He is alert and oriented to person, place, and time. Mental status is at baseline. Psychiatric: Mood and Affect: Mood normal. Behavior: Behavior normal. Results Review: I reviewed the patient's new clinical results. Assessment & Plan Paroxysmal atrial fibrillation Patient is a 74-year-old gentleman with a history of highly symptomatic recurrent paroxysmal atrialfibrillation as well as typical atrial flutter. He presents today to undergo pulmonary vein ablation by Dr. Guerra. I reviewed the specific risk-benefit profile the procedure. I quoted the patient a 1 to 2% chance of significant procedure complication including but not limited to bleeding at the groin, cardiac perforation, tamponade, stroke, myocardial infarction, phrenic nerve injury, pulmonary vein stenosis, catheter entrapment of the mitral valve annulus, esophageal injury as well as fistula and otherpotential complications. Postprocedure the patient will follow-up in the heart valve clinic in 1 month He will follow-up with Dr. Guerra in clinic in 3 months He has remained on oral anticoagulation uninterrupted for at least 90 days Donya Dvaies APRN Electrophysiology [facility] Cosigned by Mark Guerra DO at 11/30/2024 3:17 PM EDT Associated attestation - Mark Guerra DO - 11/30/2024 3:17 PM EDT I have reviewed this documentation and agree. documented in this encounter Nursing Notes * Mirta Gonzáles, RN - 10/25/2024 7:43 AM EDTSummary: Pre-PVA Assessment PRE-PVA ASSESSMENT Kirby Alvaraod 1950 [address] [facility] [address] Referral Source: Otilio Menendez MD Information obtained from: [x] Medical record review [x] Patient report Scheduled for: PVA on 11/25/[address] Guerra Allergies Allergen Reactions Latex Unknown - Low Severity Surgeon used latex stitches and had a rash on incision AFib Specific History: AFIBTYPE: paroxysmal CHADS-VASc Risk Assessment 4 Total Score 1 Hypertension 2 Age >/= 75 1 DM Criteria that do not apply: CHF PRIOR STROKE/TIA/THROMBO Vascular Disease Age 65-74 Sex: Female Anticoagulation: Eliquis 5 mg BID, NO missed doses. Cardioversion x 1 Failed AAD(s): 0 Prior Ablation: 0 Is Mr. Alvarado aware of his AFib? Yes Onset: 2023 Exacerbations: none Frequency: two episodes Alleviations: none Duration: days Symptoms: [x] Palpitations: [] Chest Discomfort: [] Dizziness: [] Presyncope: [] Lightheadedness: [] Syncope: [x] Fatigue: [] Other: [x] Short of Breath: Last Echo(s): [x] TTE Date: Aortic valve sclerosis Echocardiogram Normal EF LVH 04/2022 Past medical History: [x] Diabetes Tx: Insulin, Zituvio Hemoglobin A1C Date Value Ref Range Status 08/17/2024 9.30 (H) 4.80 - 5.60 % Final [] HYPOthyroidism NO [] HYPERthyroidism NO TSH 2022: 1.42 [x] HTN [x] Tx: lisinopril, Toprol XL [] Heart Failure NO [] CVA NO [] TIA NO [x] CAD [] NE NO [x] Dyslipidemia [x] Statin indicated: Crestor [x] Ischemic Evaluation [x] Heart Cath: 01/04/2024, Dr. Mckenzie [x] Sleep Apnea Diagnosed Device: CPAP Compliance: compliance all of the time [x] Obesity [x] BMI 30-35 [x] Weight reduction discussed with Mr. Alvarado [] Nutrition Consult [x] Declined by Mr. Alvarado Other Pertinent PMH: No medications to hold prior to procedure. Summary of Patient Contact: I spoke with Mr. Alvarado about his upcoming PVA. He was well informed about the procedure from prior discussion with Dr. Guerra and from reading the provided literature. We discussed the procedure at length including risks, anesthesia, intra-op procedures, recovery, bedrest, normal post-procedure expectations, and success rates. Patient was advised to call with any medication changes, new or worsening symptoms, or changes to their medical plan of care. I answered a few remaining questions. Mr. Alvarado verbalized understanding and he is ready to proceed. Cosigned by Mark Guerra DO at 11/16/2024 1:57 PM EDT Associated attestation - Mark Guerra DO - 11/16/2024 1:57 PM EDT I have reviewed this documentation and agree. documented in this encounter OR Notes * Op Note - Mark Guerra DO - 11/25/2024 10:23 AM EDT Images from the original note were not included. Cardiac Electrophysiology Procedure Note [facility] CATHETER ABLATION FOR ATRIAL FIBRILLATION (PVI) PROCEDURES PERFORMED: Catheter ablation of persistent atrial fibrillation Adjunctive ablation of the left atrial roof for persistent atrial fibrillation Adjunctive ablation of left atrial inferior wall for persistent atrial fibrillation Catheter ablation of SVT 1 a focal atrial tachycardia arising from the left atrial posterior wall Cath ablation of SVT #2 typical right atrial flutter Full diagnostic EP study Rhythmia 3D electroanatomic mapping drug infusion / programmed pacing Intracadiac Echocardiography transeptal puncture Left ventricular pacing and recording PREPROCEDURAL DIAGNOSES: 1. Persistent as well as paroxysmal atrial fibrillation 2. Typical right atrial flutter POST PROCEDURE DIANGOSES: As above. INDICATION FOR PROCEDURE: Briefly, Kirby Alvarado is a 74 y.o. year old male with a history of highly symptomatic recurrent paroxysmal as well as persistent atrial fibrillation as well as typical right atrial flutter. ANTICOAGULATION STRATEGY PRIOR TO AND POST PROCEDURE: DOAC. The last dose of anticoagulant was confirmed to have been taken this morning. PT/INR: No results found for: LABPROT , INR PTT: No results found for: APTT CBC: No results found for: WBC , RBC , HGB , HCT , MCV , RDW , PLT BMP: No results found for: NA , K , CL , CO2 , BUN , CREATININE , LABCREA , EGFR , GLU , LABGLUC Vital Signs: BP 140/77 (BP Location: Right arm, Patient Position: Lying) Comment: 136/75 L arm Pulse 54 Temp 97.2 ??F (36.2 ??C) (Temporal) Resp 16 Ht 182.9 cm (72 ) Wt 102 kg (224 lb 10.4 oz) SpO2 95% BMI 30.47 kg/m?? Admit Weight: 102 kg (224 lb 10.4 oz) BMI: Body mass index is 30.47 kg/m??. PROCEDURE NARRATIVE: The patient was able to give written informed consent after revisiting the delgaod portions of the riskversus benefit profile of the procedure. This discussion was framed by our lengthy conversations (please see our detailed notes). Patient verbalized strong understanding of this discussion and a strong desire to proceed with the procedure. Please note that this detailed informed consent process utilized mutual and shared decision making process between all parties involved, principally the physician and patient, but also potentially with input from the patient's selected family and friends. The patient was brought to the EP laboratory in the post absorptive state. The patient was electively intubated for the procedure and given a general anesthetic by colleagues from anesthesia. Please see the detailed anesthesia records. The patient was then prepared and draped in a routing sterile fashion. Seldinger access was obtained at the bilateral common femoral veins with 3 venipunctures. J tip wires were advanced into the vascular space. Short 11, 8 and a long sheath were placed into the bilateral common femoral veins and the inferior vena cava / right atrium in an over the wire fashion. The patient was anticoagulated with intravenous heparin (initial bolus and then continuous infusion) with a goal ACT of between 350 and 400 seconds. A phased array ICE catheter was placed into the right atrium and right ventricle. This was used fortranseptal puncture, monitoring of the pericardial space, monitoring of the ablation catheter position within the heart and monitoring of other cardiac structures such as the left atrial appendage (to document the absence of thrombus), pulmonary veins, esophagus, mitral valve annulus and other cardiac structures. Gonzales-septal puncture was performed after heparin administration with a combination of echocardiographic and fluoroscopic guidance. This was performed with the long sheath, a BRK needle, and a SafeSept transeptal wire. Catheters and sheaths were advanced safely into the left atrium. A multielectrode electrophysiology catheter was used for pacing and recording in the left atrium, left atrial appendage, pulmonary veins and left ventricle at various times throughout the procedure. We used the [employer] 3D electroanatomic mapping system in conjunction with these catheters to construct an electroanatomic shell of the left atrium, left atrial appendage, mitral valve annulus, interatrial septum and pulmonary veins. Left ventricular pacing and recording were performed by placing catheters safely and carefully across the mitral valve annulus to the left ventricle from the left atrium. Adequate sensing and pacing thresholds were obtained from the left ventricle. AV conduction ( antegrade ) as well as VA conduction ( retrograde ) were studied. This was performed as a distinct addition to the diagnostic EP study. Findings were conclusive for no accessory pathway and VA dissociation. Catheter ablation was performed to achieve pulmonary vein isolation. A wide antral circumferential ablation approach was used. Additional lesions were given within the antral lesion set at the carinabetween superior and inferior veins to achieve total isolation, when and where necessary. The patient remained in atrial fibrillation. Adjunctive ablation was performed to achieve isolationof the left atrial roof connecting the left superior to the right superior pulmonary veins. The patient remained in atrial fibrillation. Additional adjunctive ablation was performed to achieve isolation of the left atrial inferior wall connecting the left inferior to the right inferior pulmonary veins. Organized atrial tachycardia ensued. This was mapped as a separate arrhythmia. This is referred to as SVT #1. The mechanism was distinct from atrial fibrillation. The mechanism of this tachycardia was determined to be focal atrial tachycardia arising from the left atrial posterior wall. We ablated this SVT and in turn isolated the entire left atrial posterior wall. We turned our attention to performing typical atrial flutter ablation. Please note that this is a separate SVT with a distinct mechanism from the patients atrial fibrillation. This is referred to as SVT #2. Ablation was performed along the cavo tricuspid isthmus beginning at the ventricular aspect in extended to the caval aspect of the cavo tricuspid isthmus. We then demonstrated that there was bidirectional block with differential pacing maneuvers. After completing the antral ablation lesion set, I interrogated the pulmonary veins using and documented pulmonary vein isolation. Adenosine 12 mg was administered intravenously following ablation to test for other atrial and or ventricular arrhythmias. Programmed stimulation was performed in an attempt to induce other and additional arrhythmias. No arrhythmias were induced during administration and washout. The ICE catheter revealed that there was no pericardial effusion. Catheters and sheaths were then removed from the body. Hemostasis was achieved with Vascade closure devices. Bedrest 2 hours. Anticipate home later today or tomorrow. The patient was extubated in routine fashion and transferred to recovery in stable condition. COMPLICATIONS: none EBL: minimal DELGADO PROCEDURAL FINDINGS: Successful wide antral circumferential pulmonary vein isolation with additional ablation of left atrial roof left atrial posterior wall left atrial inferior wall as well as cavotricuspid isthmus as outlined above POST PROCEDURAL PLAN: Report was called the the recovery nurse responsible for the patients care. Uninterrupted anticoagulation for not less than 90 days unless specially instructed otherwise by myself or another member of our EP physician team. Please note that the patient and the patient???s family have been extensively counseled about this critical requirement and have agreed to comply. Anticipate discharge this day. Medications were reconciled, and delgado changes in medications include: none The patient will be seen at our office per routine follow up. Mark Guerra DO, [facility], [facility] Cardiac Pick Pulling Machine Operator [facility] ' documented in this encounter Plan of Treatment Upcoming Encounters Date Type Department Care Team (Late st Contact Info) Description 02/28/2025 11:00 AM EST Office Visit [facility] [address] [place] [id number] Mark Guerra DO [address] [place] [address] 06/06/2025 10:30 AM EST Office Visit [facility] [address] [facility] [place] [address] Kirby Stack PA [address] [place] [address] 12/05/2025 11:30 AM EDT Office Visit [facility] [address] [place] [address] Mark Guerra DO [address] [place] [address] documented as of this encounter Procedures Procedure Name Priority Date/Time Associated Diagnosis Comments ECG 12-LEAD Routine 11/25/2024 3:22 PM EDT EP STUDY Routine 11/25/2024 11:23 AM EDT PAF (paroxysmal atrial fibrillation) POCT ACTIVATED CLOTTING TIME Routine 11/25/2024 11:04 AM EDT SCANNED - TELEMETRY 11/25/2024 9 :07 AM EDT documented in this encounter Results * ECG 12 Lead Tachycardia (11/25/2024 3:22 PM EDT) QT Interval 412 ms ECG QTC Interval 438 ms ECG 11/25/2024 3:22 PM EDT 11/29/2024 5:13 PM EDT Narrative ECG - 11/29/2024 5:13 PM EDT Test Reason : Tachycardia Blood Pressure : */* mmHG Vent. Rate : 68 BPM Atrial Rate : 68 BPM P-R Int : 196 ms QRS Dur : 116 ms QT Int : 412 ms P-R-T Axes : 55 -58 82 degrees QTcB Int : 438 ms Sinus rhythm with premature supraventricular complexes Left axis deviation Right bundle branch block Abnormal ECG When compared with ECG of 07-May-2010 13:02, premature supraventricular complexes are now present QRS axis shifted left Nonspecific T wave abnormality now evident in Lateral leads Confirmed by Deandre Vaughn ([id number]) on 11/29/2024 5:13:27 PM Referred By: Confirmed By: Deandre Vaughn Procedure Note Deandre Vaughn MD - 11/29/2024 Test Reason : Tachycardia Blood Pressure : */* mmHG Vent. Rate : 68 BPM Atrial Rate : 68 BPM P-R Int : 196 ms QRS Dur : 116 ms QT Int : 412 ms P-R-T Axes : 55 -58 82 degrees QTcB Int : 438 ms Sinus rhythm with premature supraventricular complexes Left axis deviation Right bundle branch block Abnormal ECG When compared with ECG of 07-May-2010 13:02, premature supraventricular complexes are now present QRS axis shifted left Nonspecific T wave abnormality now evident in Lateral leads Confirmed by Deandre Vaughn ([id number]) on 11/29/2024 5:13:27 PM Referred By: Confirmed By: Deandre Vaughn us Mark Guerra DO ECG ORDERABLES Final Result ECG * ABLATION A-FIB (11/25/2024 11:23 AM EDT) Anatomical Region Laterality Modality X-Ray Angiograph y Narrative 11/25/2024 11:41 AM EDT Procedure Narrative Cardiac Electrophysiology Procedure Note [facility] CATHETER ABLATION FOR ATRIAL FIBRILLATION (PVI) PROCEDURES PERFORMED: ? Catheter ablation of persistent atrial fibrillation ? Adjunctive ablation of the left atrial roof for persistent atrial fibrillation ? Adjunctive ablation of left atrial inferior wall for persistent atrial fibrillation ? Catheter ablation of SVT 1 a focal atrial tachycardia arising from the left atrial posterior wall ? Cath ablation of SVT #2 typical right atrial flutter ? Full diagnostic EP study ? Rhythmia 3D electroanatomic mapping ? drug infusion / programmed pacing ? Intracadiac Echocardiography ? transeptal puncture ? Left ventricular pacing and recording PREPROCEDURAL DIAGNOSES: 1. Persistent as well as paroxysmal atrial fibrillation 2. Typical right atrial flutter POST PROCEDURE DIANGOSES: As above. INDICATION FOR PROCEDURE: Briefly, Kirby Alvarado is a 74 y.o. year old male with a history of highly symptomatic recurrent paroxysmal as well as persistent atrial fibrillation as well as typical right atrial flutter. ANTICOAGULATION STRATEGY PRIOR TO AND POST PROCEDURE: DOAC. The last dose of anticoagulant was confirmed to have been taken this morning. PT/INR: No results found for: LABPROT , INR PTT: No results found for: APTT CBC: No results found for: WBC , RBC , HGB , HCT , MCV , RDW , PLT BMP: No results found for: NA , K , CL , CO2 , BUN , CREATININE , LABCREA , EGFR , GLU , LABGLUC Vital Signs: BP 140/77 (BP Location: Right arm, Patient Position: Lying) Comment: 136/75 L arm Pulse 54 Temp 97.2 F (36.2 C) (Temporal) Resp 16 Ht 182.9 cm (72 ) Wt 102 kg (224 lb 10.4 oz) SpO2 95% BMI 30.47 kg/m Admit Weight: 102 kg (224 lb 10.4 oz) BMI: Body mass index is 30.47 kg/m . PROCEDURE NARRATIVE: The patient was able to give written informed consent after revisiting the delgado portions of the risk versus benefit profile of the procedure. This discussion was framed by our lengthy conversations (please see our detailed notes). Patient verbalized strong understanding of this discussion and a strong desire to proceed with the procedure. Please note that this detailed informed consent process utilized mutual and shared decision making process between all parties involved, principally the physician and patient, but also potentially with input from the patient's selected family and friends. The patient was brought to the EP laboratory in the post absorptive state. The patient was electively intubated for the procedure and given a general anesthetic by colleagues from anesthesia. Please see the detailed anesthesia records. The patient was then prepared and draped in a routing sterile fashion. Seldinger access was obtained at the bilateral common femoral veins with 3 venipunctures. J tip wires were advanced into the vascular space. Short 11, 8 and a long sheath were placed into the bilateral common femoral veins and the inferior vena cava / right atrium in an over the wire fashion. The patient was anticoagulated with intravenous heparin (initial bolus and then continuous infusion) with a goal ACT of between 350 and 400 seconds. A phased array ICE catheter was placed into the right atrium and right ventricle. This was used for transeptal puncture, monitoring of the pericardial space, monitoring of the ablation catheter position within the heart and monitoring of other cardiac structures such as the left atrial appendage (to document the absence of thrombus), pulmonary veins, esophagus, mitral valve annulus and other cardiac structures. Gonzales-septal puncture was performed after heparin administration with a combination of echocardiographic and fluoroscopic guidance. This was performed with the long sheath, a BRK needle, and a SafeSept transeptal wire. Catheters and sheaths were advanced safely into the left atrium. A multielectrode electrophysiology catheter was used for pacing and recording in the left atrium, left atrial appendage, pulmonary veins and left ventricle at various times throughout the procedure. We used the [employer] 3D electroanatomic mapping system in conjunction with these catheters to construct an electroanatomic shell of the left atrium, left atrial appendage, mitral valve annulus, interatrial septum and pulmonary veins. Left ventricular pacing and recording were performed by placing catheters safely and carefully across the mitral valve annulus to the left ventricle from the left atrium. Adequate sensing and pacing thresholds were obtained from the left ventricle. AV conduction ( antegrade ) as well as VA conduction ( retrograde ) were studied. This was performed as a distinct addition to the diagnostic EP study. Findings were conclusive for no accessory pathway and VA dissociation. Catheter ablation was performed to achieve pulmonary vein isolation. A wide antral circumferential ablation approach was used. Additional lesions were given within the antral lesion set at the august between superior and inferior veins to achieve total isolation, when and where necessary. The patient remained in atrial fibrillation. Adjunctive ablation was performed to achieve isolation of the left atrial roof connecting the left superior to the right superior pulmonary veins. The patient remained in atrial fibrillation. Additional adjunctive ablation was performed to achieve isolation of the left atrial inferior wall connecting the left inferior to the right inferior pulmonary veins. Organized atrial tachycardia ensued. This was mapped as a separate arrhythmia. This is referred to as SVT #1. The mechanism was distinct from atrial fibrillation. The mechanism of this tachycardia was determined to be focal atrial tachycardia arising from the left atrial posterior wall. We ablated this SVT and in turn isolated the entire left atrial posterior wall. We turned our attention to performing typical atrial flutter ablation. Please note that this is a separate SVT with a distinct mechanism from the patients atrial fibrillation. This is referred to as SVT #2. Ablation was performed along the cavo tricuspid isthmus beginning at the ventricular aspect in extended to the caval aspect of the cavo tricuspid isthmus. We then demonstrated that there was bidirectional block with differential pacing maneuvers. After completing the antral ablation lesion set, I interrogated the pulmonary veins using and documented pulmonary vein isolation. Adenosine 12 mg was administered intravenously following ablation to test for other atrial and or ventricular arrhythmias. Programmed stimulation was performed in an attempt to induce other and additional arrhythmias. No arrhythmias were induced during administration and washout. The ICE catheter revealed that there was no pericardial effusion. Catheters and sheaths were then removed from the body. Hemostasis was achieved with Vascade closure devices. Bedrest 2 hours. Anticipate home later today or tomorrow. The patient was extubated in routine fashion and transferred to recovery in stable condition. COMPLICATIONS: none EBL: minimal DELGADO PROCEDURAL FINDINGS: ? Successful wide antral circumferential pulmonary vein isolation with additional ablation of left atrial roof left atrial posterior wall left atrial inferior wall as well as cavotricuspid isthmus as outlined above POST PROCEDURAL PLAN: ? Report was called the the recovery nurse responsible for the patients care. ? Uninterrupted anticoagulation for not less than 90 days unless specially instructed otherwise by myself or another member of our EP physician team. Please note that the patient and the patient's family have been extensively counseled about this critical requirement and have agreed to comply. ? Anticipate discharge this day. ? Medications were reconciled, and delgado changes in medications include: none ? The patient will be seen at our office per routine follow up. Mark Guerra DO, FAC, RS Cardiac Pick Pulling Machine Operator [facility] ' Risks, benefits and alternatives were discussed with the patient and/or family. Plan is for monitored anesthesia care. Less than 20 mL of estimated blood loss during the case. No specimen was collected during the case. us JEANNE Perez CV ELECTROPHYSIOLOGY ORDER BENNY Final Result * (ABNORMAL) POC Activated Clotting Time (11/25/2024 11:04 AM EDT) Activated Clotting Time 302(H) 82 - 152 Seconds 12/02/2024 5:32 AM EDT [facility] Comment:Serial Number: [id number] 2Operator: [id number] Blood 11/25/2024 11:0 4 AM EDT 12/02/2024 5:32 AM EDT Mark Guerra DO POINT OF CARE TEST ORDERABLES F inal Result [facility]
[address] [place] [address], * Telemetry Scan (11/25/2024 9:07 AM EDT) [facility] Onbase ECG ORDERABLES Final Result documented in this encounter Visit Diagnoses Diagnosis PAF (paroxysmal atrial fibrillation)- Primary Atrial fibrillation Persistent atrial fibrillation Atrial fibrillation PAF (paroxysmal atrial fibrillation) Atrial fibrillation documented in this encounter Admitting Diagnoses Diagnosis PAF (paroxysmal atrial fibrillation) Atrial fibrillation Persistent atrial fibrillation Atrial fibrillation documented in this encounter Administered Medications Inactive Administered Medications - up to 3 most recent administrations Medication Order MAR Action Action Date Dose Rate Site droperidol (INAPSINE) injection 0.625 mg 0.625 mg, Intravenous, Every 15 Minutes PRN, Nausea, Vomiting, Starting on Charmaine 11/25/24 at 1508, For 2 doses droperidol (INAPSINE) injection 0.625 mg 0.625 mg, Intramuscular, Once As Needed, Nausea, Vomiting, Starting on Charmaine 11/25/24 at 1508, For 2 doses famotidine (PEPCID) injection 20 mg 20 mg, Intravenous, Once, On Charmaine 11/25/24 at 0903, For 1 dose, Give IV push over 2 minutes. Given 11/25/2024 10:12 AM EDT 20 mg fentaNYL citrate (PF) (SUBLIMAZE) injection 50 mcg 50 mcg, Intravenous, Every 5 Minutes PRN, Moderate Pain, Starting on Charmaine 11/25/24 at 1508, For 4 doses, Maximum total dose of fentanyl is 200 mcg. If given for pain, use the following pain scale: Mild Pain = Pain Score of 1-3, CPOT 1-2 Moderate Pain = Pain Score of 4-6, CPOT 3-4 Severe Pain = Pain Score of 7-10, CPOT 5-8 hydrALAZINE (APRESOLINE) injection 5 mg 5 mg, Intravenous, Every 10 Minutes PRN, High Blood Pressure, for systolic blood pressure greater than 180 mmHg or diastolic blood pressure greater than 105 mmHg, Starting on Charmaine 11/25/24 at 1508, Up to 20 mg. Caution: Look alike/sound alike drug alert HYDROcodone-acetaminophen (NORCO) 5-325 MG per tablet 1 tablet 1 tablet, Oral, Once As Needed, Moderate Pain, pain, Starting on Charmaine 11/25/24 at 1508, For 10 days, [AARON] Do not exceed 4 grams of acetaminophen in a 24 hr period. Max dose of 2gm for AST/ALT greater than 120 units/L If given for pain, use the following pain scale: Mild Pain = Pain Score of 1-3, CPOT 1-2 Moderate Pain = Pain Score of 4-6, CPOT 3-4 Severe Pain = Pain Score of 7-10, CPOT 5-8 HYDROcodone-acetaminophen (NORCO) 7.5-325 MG per tablet 1 tablet 1 tablet, Oral, Every 4 Hours PRN, Severe Pain, Starting on Charmaine 11/25/24 at 1508, For 5 days, Based on patient request - if ordered for moderate or severe pain, provider allows for administration of a medication prescribed for a lower pain scale. [AARON] Do not exceed 4 grams of acetaminophen in a 24 hr period. Max dose of 2gm for AST/ALT greater than 120 units/L If given for pain, use the following pain scale: Mild Pain = Pain Score of 1-3, CPOT 1-2 Moderate Pain = Pain Score of 4-6, CPOT 3-4 Severe Pain = Pain Score of 7-10, CPOT 5-8 HYDROmorphone (DILAUDID) injection 0.5 mg 0.5 mg, Intravenous, Every 10 Minutes PRN, Severe Pain, Starting on Charmaine 11/25/24 at 1508, For 4 doses, Maximum total dose of hydromorphone is 2 mg. If given for pain, use the following pain scale: Mild Pain = Pain Score of 1-3, CPOT 1-2 Moderate Pain = Pain Score of 4-6, CPOT 3-4 Severe Pain = Pain Score of 7-10, CPOT 5-8 ipratropium-albuterol (DUO-NEB) nebulizer solution 3 mL 3 mL, Nebulization, Once As Needed, Wheezing, Shortness of Air, bronchospasm, Starting on Charmaine 11/25/24 at 1508, For 1 dose labetalol (NORMODYNE,TRANDATE) injection 5 mg 5 mg, Intravenous, Every 5 Minutes PRN, High Blood Pressure, for systolic blood pressure greater than 180 mmHg or diastolic blood pressure greater than 105 mmHg, Starting on Charmaine 11/25/24 at 1508, Hold for heart rate less than 60. Give IV Push over 2 minutes. lactated ringers bolus 250 mL 250 mL, Intravenous, at 1,666.7 mL/hr, Administer over 0.15 Hours, Once As Needed, Hypotension, Starting on Charmaine 11/25/24 at 1508, For 2 doses, Indications: HypotensionIndications:Hypotension lactated ringers infusion 9 mL/hr, Intravenous, Continuous, Starting on Fri11/26/24 at 0600, For 1 day, May switch to NS IV at [facility] if renal / if indicated New Bag 11/25/2024 10:23 AM EDT lactated ringers infusion 9 mL/hr, Intravenous, Continuous, Starting on Charmaine 11/25/24 at 1510, For 1 day lidocaine PF 1% (XYLOCAINE) injection 0.5 mL 0.5 mL, Injection, Once As Needed, IV Start, Starting on Charmaine 11/25/24 at 0901, For 1 dose midazolam (VERSED) injection 0.5 mg 0.5 mg, Intravenous, Every 10 Minutes PRN, Anxiety prophylaxis, Pre-op comfort, Starting on Charmaine 11/25/24 at 0901, For 2 doses, May repeat dose in 10 minutes one time then contact provider for additional orders. If given IV Push: give slowly over at least 2 minutes, unless provider at bedside for induction. (AARON) naloxone (NARCAN) injection 0.4 mg 0.4 mg, Intravenous, As Needed, Opioid Reversal, unresponsiveness, decrease oxygen saturation, Starting on Charmaine 11/25/24 at 1508 ondansetron (ZOFRAN) injection 4 mg 4 mg, Intravenous, Once As Needed, Nausea, Vomiting, Starting on Charmaine 11/25/24 at 1508, For 1 dose, If BOTH ondansetron (ZOFRAN) and promethazine (PHENERGAN) are ordered use ondansetron first and THEN promethazine IF ondansetron is ineffective. promethazine (PHENERGAN) suppository 25 mg 25 mg, Rectal, Once As Needed, Nausea, Vomiting, Starting on Charmaine 11/25/24 at 1508, For 1 dose, If BOTH ondansetron (ZOFRAN) and promethazine (PHENERGAN) are ordered use ondansetron first and THEN promethazine IF ondansetron is ineffective. promethazine (PHENERGAN) tablet 25 mg 25 mg, Oral, Once As Needed, Nausea, Vomiting, Starting on Charmaine 11/25/24 at 1508, For 1 dose, If BOTH ondansetron (ZOFRAN) and promethazine (PHENERGAN) are ordered use ondansetron first and THEN promethazine IF ondansetron is ineffective. ([facility]) sodium chloride 0.9 % flush 10 mL 10 mL, Intravenous, Every 12 Hours Scheduled, First dose on Charmaine 11/25/24 at 0903 sodium chloride 0.9 % flush 10 mL 10 mL, Intravenous, As Needed, Line Care, Starting on Charmaine 11/25/24 at 0901 sodium chloride 0.9 % flush 3 mL 3 mL, Intravenous, Every 12 Hours Scheduled, First dose on Charmaine 11/25/24 at 2100 sodium chloride 0.9 % flush 3-10 mL 3-10 mL, Intravenous, As Needed, Line Care, Starting on Charmaine 11/25/24 at 1508 sodium chloride 0.9 % infusion 9 mL 9 mL, Intravenous, As Needed, Line Care, Starting on Charmaine 11/25/24 at 1508, For 1 day, Following administration of an IV intermittent medication, flush line with 40mL NS at 100mL/hr. documented in this encounter Active and Recently Administered Medications Times are shown in EDT. Scheduled Medication Order 11/23/2024 11/24/2024 11/25/2024 famotidine (PEPCID) injection 20 mg (COMPLETED) 20 mg, Intravenous, Once, On Charmaine 11/25/24 at 0903, For 1 dose, Give IV push over 2 minutes. 1012 (Given - Provid er: Abby Bernard RN) famotidine (PEPCID) tablet 20 mg 20 mg, Oral, Once, On Charmaine /21/25 at 0903, For 1 dose 0903 (Due) sodium chloride 0.9 % flush 10 mL 10 mL, Intravenous, Every 12 Hours Scheduled, First dose on Fri11/25/24 at 0903 0903 (Due) sodium chloride 0.9 % flush 3 mL 3 mL, Intravenous, Every 12 Hours Scheduled, First dose on Fri11/25/24 at 2100 Continuous Medication Order 11/23/2024 11/24/2024 11/25/2024 lactated ringers infusion 9 mL/hr, Intravenous, Continuous, Starting on Fri11/26/24 at 0600, For 1 day, May switch to NS IV at [facility] if renal / if indicated 1023 (New Bag - Prov ider: Leonidas Salcedo CRNA)1131 (Anesthesia Volume Adjustment - Provider: Leonidas Salcedo CRNA)2241 (Due: Order Ending - Provider: Automatic Discharge Provider - Comment: [Order ends at this time. Document the following action when infusion is complete: Stopped]) lactated ringers infusion 9 mL/hr, Intravenous, Continuous, Starting on Fri11/25/24 at 1510, For 1 day 1510 (Due) PRN Medication Order 11/23/2024 11/24/2024 11/25/2024 adenosine (ADENOCARD) injection (CANCELED) Code / Trauma / Sedation Medication, Starting on Fri11/25/24 at 1122 1122 (Given - Provid er: Mendel Wren RN) bupivacaine (MARCAINE) 0.5 % injection (CANCELED) Code / Trauma / Sedation Medication, Starting on Fri11/25/24 at 1050 1050 (Given - Provid er: Mark Guerra DO) droperidol (INAPSINE) injection 0.625 mg(Linked Group 1) 0.625 mg, Intravenous, Every 15 Minutes PRN, Nausea, Vomiting, Starting on Fri11/25/24 at 1508, For 2 doses droperidol (INAPSINE) injection 0.625 mg(Linked Group 1) 0.625 mg, Intramuscular, Once As Needed, Nausea, Vomiting, Starting on Fri11/25/24 at 1508, For 2 doses fentaNYL citrate (PF) (SUBLIMAZE) injection 50 mcg 50 mcg, Intravenous, Every 5 Minutes PRN, Moderate Pain, Starting on Charmaine 11/25/24 at 1508, For 4 doses, Maximum total dose of fentanyl is 200 mcg. If given for pain, use the following pain scale: Mild Pain = Pain Score of 1-3, CPOT 1-2 Moderate Pain = Pain Score of 4-6, CPOT 3-4 Severe Pain = Pain Score of 7-10, CPOT 5-8 heparin (porcine) injection (CANCELED) Code / Trauma / Sedation Medication, Starting on Charmaine 11/25/24 at 1053 1053 (Given - Provid er: Mendel Wren RN)1108 (Given - Provider: Mendel Wren RN) heparin 08826 units/250 mL (100 units/mL) in 0.45 % NaCl infusion (CANCELED) Code / Trauma / Sedation Continuous Med, Starting on Charmaine 11/25/24 at 1100 1053 (New Bag - Prov ider: Mendel Wren RN)1120 (Stopped - Provider: Mendel Wren RN) hydrALAZINE (APRESOLINE) injection 5 mg 5 mg, Intravenous, Every 10 Minutes PRN, High Blood Pressure, for systolic blood pressure greater than 180 mmHg or diastolic blood pressure greater than 105 mmHg, Starting on Charmaine 11/25/24 at 1508, Up to 20 mg. Caution: Look alike/sound alike drug alert HYDROcodone-acetaminophen (NORCO) 5-325 MG per tablet 1 tablet 1 tablet, Oral, Once As Needed, Moderate Pain, pain, Starting on Charmaine 11/25/24 at 1508, For 10 days, [AARON] Do not exceed 4 grams of acetaminophen in a 24 hr period. Max dose of 2gm for AST/ALT greater than 120 units/L If given for pain, use the following pain scale: Mild Pain = Pain Score of 1-3, CPOT 1-2 Moderate Pain = Pain Score of 4-6, CPOT 3-4 Severe Pain = Pain Score of 7-10, CPOT 5-8 HYDROcodone-acetaminophen (NORCO) 7.5-325 MG per tablet 1 tablet 1 tablet, Oral, Every 4 Hours PRN, Severe Pain, Starting on Charmaine 11/25/24 at 1508, For 5 days, Based on patient request - if ordered for moderate or severe pain, provider allows for administration of a medication prescribed for a lower pain scale. [AARON] Do not exceed 4 grams of acetaminophen in a 24 hr period. Max dose of 2gm for AST/ALT greater than 120 units/L If given for pain, use the following pain scale: Mild Pain = Pain Score of 1-3, CPOT 1-2 Moderate Pain = Pain Score of 4-6, CPOT 3-4 Severe Pain = Pain Score of 7-10, CPOT 5-8 HYDROmorphone (DILAUDID) injection 0.5 mg 0.5 mg, Intravenous, Every 10 Minutes PRN, Severe Pain, Starting on Charmaine 11/25/24 at 1508, For 4 doses, Maximum total dose of hydromorphone is 2 mg. If given for pain, use the following pain scale: Mild Pain = Pain Score of 1-3, CPOT 1-2 Moderate Pain = Pain Score of 4-6, CPOT 3-4 Severe Pain = Pain Score of 7-10, CPOT 5-8 ipratropium-albuterol (DUO-NEB) nebulizer solution 3 mL 3 mL, Nebulization, Once As Needed, Wheezing, Shortness of Air, bronchospasm, Starting on Charmaine 11/25/24 at 1508, For 1 dose labetalol (NORMODYNE,TRANDATE) injection 5 mg 5 mg, Intravenous, Every 5 Minutes PRN, High Blood Pressure, for systolic blood pressure greater than 180 mmHg or diastolic blood pressure greater than 105 mmHg, Starting on Charmaine 11/25/24 at 1508, Hold for heart rate less than 60. Give IV Push over 2 minutes. lactated ringers bolus 250 mL 250 mL, Intravenous, at 1,666.7 mL/hr, Administer over 0.15 Hours, Once As Needed, Hypotension, Starting on Charmaine 11/25/24 at 1508, For 2 doses, Indications: Hypotension lidocaine (XYLOCAINE) 1 % injection (CANCELED) Code / Trauma / Sedation Medication, Starting on Charmaine 11/25/24 at 1050 1050 (Given - Provid er: Mark Guerra DO) lidocaine PF 1% (XYLOCAINE) injection 0.5 mL 0.5 mL, Injection, Once As Needed, IV Start, Starting on Charmaine 11/25/24 at 0901, For 1 dose midazolam (VERSED) injection 0.5 mg 0.5 mg, Intravenous, Every 10 Minutes PRN, Anxiety prophylaxis, Pre-op comfort, Starting on Charmaine 11/25/24 at 0901, For 2 doses, May repeat dose in 10 minutes one time then contact provider for additional orders. If given IV Push: give slowly over at least 2 minutes, unless provider at bedside for induction. (AARON) naloxone (NARCAN) injection 0.4 mg 0.4 mg, Intravenous, As Needed, Opioid Reversal, unresponsiveness, decrease oxygen saturation, Starting on Charmaine 11/25/24 at 1508 ondansetron (ZOFRAN) injection 4 mg 4 mg, Intravenous, Once As Needed, Nausea, Vomiting, Starting on Charmaine 11/25/24 at 1508, For 1 dose, If BOTH ondansetron (ZOFRAN) and promethazine (PHENERGAN) are ordered use ondansetron first and THEN promethazine IF ondansetron is ineffective. promethazine (PHENERGAN) suppository 25 mg(Linked Group 2) 25 mg, Rectal, Once As Needed, Nausea, Vomiting, Starting on Charmaine 11/25/24 at 1508, For 1 dose, If BOTH ondansetron (ZOFRAN) and promethazine (PHENERGAN) are ordered use ondansetron first and THEN promethazine IF ondansetron is ineffective. promethazine (PHENERGAN) tablet 25 mg(Linked Group 2) 25 mg, Oral, Once As Needed, Nausea, Vomiting, Starting on Charmaine 11/25/24 at 1508, For 1 dose, If BOTH ondansetron (ZOFRAN) and promethazine (PHENERGAN) are ordered use ondansetron first and THEN promethazine IF ondansetron is ineffective. ([facility]) protamine injection (CANCELED) Code / Trauma / Sedation Medication, Starting on Charmaine 11/25/24 at 1124 1124 (Given - Provid er: Mendel Wren RN) sodium chloride 0.9 % flush 10 mL 10 mL, Intravenous, As Needed, Line Care, Starting on Charmaine 11/25/24 at 0901 sodium chloride 0.9 % flush 3-10 mL 3-10 mL, Intravenous, As Needed, Line Care, Starting on Charmaine 11/25/24 at 1508 sodium chloride 0.9 % infusion 9 mL 9 mL, Intravenous, As Needed, Line Care, Starting on Charmaine 11/25/24 at 1508, For 1 day, Following administration of an IV intermittent medication, flush line with 40mL NS at 100mL/hr. Linked Groups Order Group 1: droperidol (INAPSINE) injection 0.625 mgJump to med 0.625 mg, Intravenous, Every 15 Minutes PRN, Nausea, Vomiting, Starting on Charmaine 11/25/24 at 1508, For 2 doses Or droperidol (INAPSINE) injection 0.625 mgJump to med 0.625 mg, Intramuscular, Once As Needed, Nausea, Vomiting, Starting on Charmaine 11/25/24 at 1508, For 2 doses Group 2: promethazine (PHENERGAN) suppository 25 mgJump to med 25 mg, Rectal, Once As Needed, Nausea, Vomiting, Starting on Charmaine 11/25/24 at 1508, For 1 dose, If BOTH ondansetron (ZOFRAN) and promethazine (PHENERGAN) are ordered use ondansetron first and THEN promethazine IF ondansetron is ineffective. Or promethazine (PHENERGAN) tablet 25 mgJump to med 25 mg, Oral, Once As Needed, Nausea, Vomiting, Starting on Charmaine 11/25/24 at 1508, For 1 dose, If BOTH ondansetron (ZOFRAN) and promethazine (PHENERGAN) are ordered use ondansetron first and THEN promethazine IF ondansetron is ineffective. ([facility]) documented in this encounter Care Teams Accounts Payable Accountant Relationship Specialty Start Date End Date Otilio Menendez MD [address] [place] [address] PCP - General Family Medicine 10/29/22 documented as of this encounter
--- OUTSIDE RECORDS SUMMARY | 2024-11-25 10:10 | XMS_ITS | Encounter Summary ---
[facility] Address [address] [place] [address] Care Team Providers Care Agricultural Produce Packer Name Role Phone Otilio Menendez MD Primary Care Provider [phone]- [phone] Reason for Visit * Auth/Cert Specialty Diagnoses / Procedures Referred By Contac t Referred To Contact Diagnoses PAF (paroxysmal atrial fibrillation) afib Procedures [place] ABLATE L/R ATRIAL FIBRIL W/ISOLATED PULM VEIN ND COMPRE EP EVAL ABLTJ ATR FIB PULM VEIN ISOLATION ND INTRACARDIAC ELECTROPHYSIOLOGIC 3D MAPPING ND COMPRE EP EVAL W/L ATRIAL PACG&REC C SINS/L ATR ND PROGRAMMED STIMJ & PACG AFTER IV DRUG INFUSION ND COMPRE EP EVAL W/LEFT VENTRICULAR PACING/REC ND N-INVAS AUGMNT ARRHYT FREDA RAJAN CAR ARRHYT SIMUL ND ICAR CATH ABLATION DISCRETE MECHANISM ARRHYTHMIA ND CLOSURE DEV, VASC Ablation atrial fibrillation; PFA; Rhythmia; General anesthesia; Preop CT; Do not hold anticoagulation Referral ID Status Reason Start Date Expiration Date Visits Re quested Visits Authorized [id number] 1 1 Encounter Details Date Type Department Care Team (Late st Contact Info) Description 11/25/2024 10:10 AM EDT - 11/25/2024 11:10 AM EDT Surgery [facility] [address] [place] [id number] Mark Guerra, DO [address] [facility] [address] [place] [address] Ablation atrial fibrillation; PFA; Rhythmia General anesthesia Preop CT Do not hold anticoagulation [12628 (CPT ) +8 more] Social History Tobacco Use Types Packs/Day Years Used Date Smoking Tobacco: Every Day Cigarettes 1.5 62.7 Started: 1964 Passive Smoke Exposure: Current Smokeless Tobacco: Never Alcohol Use Standard Drinks/Week Comments Not Currently 0 (1 standard drink = 0.6 oz pur e alcohol) [facility] Utilities Answer Date Recorded In the [...] GED or equivalent No 11/19/2024 Preferred Language Tristanian 11/19/2024 Sex and Gender Information Value Date [...] 8:50 AM EDT Abby Bernard RN * [place] Suicide Severity Rating Scale (Screener/Recent Self-Report) Question Answer Date of Assessment Author 6. Suicidal Behavior (Lifetime) No 5 8:50 AM EDT Abby Bernard RN documented as of this encounter Discharge Instructions * Attachments The following attachments cannot be sent through Care Everywhere. * Cardiac Ablation (Tristanian) * Femoral Site Care (Tristanian) * General Anesthesia Adult Care After (Tristanian) * Rivaroxaban Tablets (Tristanian) * Atrial Fibrillation (Tristanian) documented in this encounter Medications at Time [...] Physician (Cardiology) Reggie Ndiaye PA-C as Physician Public Relations Coordinator (Cardiology) Chief complaint paroxysmal atrial fibrillation Subjective [...] Surgeon: Alfonso Jack MD; Location: [facility]; Service: General; Laterality: N/A; COLONOSCOPY FOREIGN BODY [...] least 90 days Donya Davies APRN Electrophysiology [facility] Cosigned by Mark Guerra DO at 11/30/2024 3:17 PM EDT Associated attestation - Mark Guerra DO - 11/30/2024 3:17 PM EDT I have reviewed this documentation and agree. documented in this encounter Nursing Notes * Mirta Gonzáles RN - 10/25/2024 7:43 AM EDTSummary: Pre-PVA Assessment PRE-PVA ASSESSMENT Kirby Glen Christiano 1950 [address] [facility] [address] Referral Source: Otilio Menendez MD Information obtained [...] NO [] TIA NO [x] CAD [] ID NO [x] Dyslipidemia [x] Statin indicated: Crestor [...] were not included. Cardiac Electrophysiology Procedure Note [facility] CATHETER ABLATION FOR ATRIAL FIBRILLATION (PVI) [...] times throughout the procedure. We used the Bionostra 3D electroanatomic mapping system in conjunction with [...] routine follow up. Mark Guerra DO, [facility] Cardiac Health Professional [facility] ' documented in this encounter Plan of Treatment Upcoming Encounters Date Type Department Care Team (Late st Contact Info) Description 02/28/2025 11:00 AM EST Office Visit [facility] [address] [facility] [address] [place] [address] Mark Guerra DO [facility] [facility] [address] [address] 06/06/2025 10:30 AM EST Office Visit [facility] [address] [facility] [address] [place] [address] Kirby Stack PA [address] [facility] [address] [address] [place] [address] 12/05/2025 11:30 AM EDT Office Visit [facility] [address] [facility] [address] [place] [id number] Mark Guerra, DO [address] [place] [id number] documented as of this encounter Procedures Procedure [...] EDT Procedure Narrative Cardiac Electrophysiology Procedure Note [facility] CATHETER ABLATION FOR ATRIAL FIBRILLATION (PVI) [...] times throughout the procedure. We used the Bionostra 3D electroanatomic mapping system in conjunction with [...] routine follow up. Mark Guerra, , [facility] Cardiac Health Professional [facility] ' Risks, benefits and alternatives were discussed with the patient and/or family. Plan is for monitored anesthesia care. Less than 20 mL of estimated blood loss during the case. No specimen was collected during the case. JEANNE Perez CV ELECTROPHYSIOLOGY ORDER BENNY Final Result * (ABNORMAL) POC Activated Clotting Time (11/25/2024 11:04 AM EDT) [facility] Signature Activated Clotting Time 302(H) 82 - 152 Seconds 12/02/2024 5:32 AM EDT [facility] Comment:Serial Number: [id number] 2Operator: [id number] Blood 11/25/2024 11:0 4 AM EDT 12/02/2024 5:32 AM EDT Mark Guerra DO POINT OF CARE TEST ORDERABLES F inal Result [facility]
[address] [place] [address], * Telemetry Scan (11/25/2024 9:07 AM EDT) [facility] Onbase ECG ORDERABLES Final Result documented [...] 11/25/2024 10:53 AM EDT 16,000 Units heparin 12474 units/250 mL (100 units/mL) in 0.45 % [...] day, May switch to NS IV at [facility] if renal / if indicated New Bag [...] (Given - Provider: Mendel Wren RN) heparin 83016 units/250 mL (100 units/mL) in 0.45 % [...] ([facility]) documented in this encounter Care Teams Agricultural Produce Packer Relationship Specialty Start Date End Date Otilio Menendez MD [address] [place] [address] [place] [address] PCP - General Family Medicine 10/29/22 documented as of this encounter
--- OUTSIDE RECORDS SUMMARY | 2024-11-25 10:23 | XMS_ITS | Encounter Summary ---
[facility] Address [address] [place] [address] Care Team Providers Care Permit Coordinator Name Role Phone Otilio Menendez MD Primary Care Provider +1- [phone] Reason for Visit * Auth/Cert Specialty Diagnoses / Procedures Referred By Contac t Referred To Contact Diagnoses PAF (paroxysmal atrial fibrillation) afib Procedures MS ABLATE L/R ATRIAL FIBRIL W/ISOLATED PULM VEIN MS COMPRE EP EVAL ABLTJ ATR FIB PULM VEIN ISOLATION MS INTRACARDIAC ELECTROPHYSIOLOGIC 3D MAPPING MS COMPRE EP EVAL W/L ATRIAL PACG&REC C SINS/L ATR MS PROGRAMMED STIMJ & PACG AFTER IV DRUG INFUSION MS COMPRE EP EVAL W/LEFT VENTRICULAR PACING/REC MS N-INVAS AUGMNT ARRHYT RFEDA RAJAN CAR ARRHYT SIMUL MS ICAR CATH ABLATION DISCRETE MECHANISM ARRHYTHMIA MS CLOSURE DEV, VASC Ablation atrial fibrillation; PFA; Rhythmia; General anesthesia; Preop CT; Do not hold anticoagulation Referral ID Status Reason Start Date Expiration Date Visits Re quested Visits Authorized [id number] 1 1 Encounter Details Date Type Department Care Team (Late st Contact Info) Description 11/25/2024 10:23 AM EDT Anesthesia Event [facility] EP [facility] [address] [place] [address] Agustin Castellon MD [address] [place] [address] Anesthesia Record Procedure Summary Procedure Name Responsible [...] protocol/policy; No complications 11/25/24 1051 by Elmer Grire RN 11/25/24 1122 by Elmer Grier RN [...] drink = 0.6 oz pur e alcohol) [facility] Utilities Answer Date Recorded In the past 12 months has [employer], gas, oil, or water [employer] threatened to shut off services in your [...] GED or equivalent No 11/19/2024 Preferred Language Burmese 11/19/2024 Sex and Gender Information Value Date [...] 8:50 AM EDT Abby Bernard RN * [place] Suicide Severity Rating Scale (Screener/Recent Self-Report) Question [...] and Staff Patient location during procedure: OR RE RECORDING MIXER/CAA: Leonidas Salcedo CRNA Indications and Patient Condition [...] no thyroid disorder Musculoskeletal 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 Plan discussed with RE RECORDING MIXER. CODE STATUS: documented in this encounter Plan of Treatment Upcoming Encounters Date Type Department Care Team (Late st Contact Info) Description 02/28/2025 11:00 AM EST Office Visit [facility] CARDIOLOGY [address] [facility] [address] [place] [address] Mark Guerra DO [address] [facility] [address] [place] [address] 06/06/2025 10:30 AM EST Office Visit [facility] [address] [facility] [address] [place] [address] Kirby Stack PA [address] [facility] [address] [place] [address] 12/05/2025 11:30 AM EDT Office Visit [facility] [address] [facility] [address] [place] [address] Mark Guerra, DO [address] [facility] [address] [place] [address] documented as of this encounter Procedures Procedure [...] and Staff Patient location during procedure: OR RE RECORDING MIXER/CAA: Leonidas Salcedo CRNA Indications and Patient Condition [...] mg documented in this encounter Care Teams Permit Coordinator Relationship Specialty Start Date End Date Otilio Menendez MD [address] [place] [address] PCP - General Family Medicine 10/29/22 documented as of this encounter
--- OUTSIDE RECORDS SUMMARY | 2024-12-09 12:45 | XMS_ITS | Encounter Summary ---
[facility] Address [address] [place] [address] Care Team Providers Care Construction Rigger Name Role Phone Otilio Menendez MD Primary Care Provider +1- [phone] Reason for Visit * Reason Comments Atrial Fibrillation S/p PVA, groin wound check Encounter Details Date Type Department Care Team ([facility] st Contact Info) Description 12/09/2024 12:45 PM EDT Office Visit [facility] [address] [facility] [address] [place] [address] Demetrice Simeon, ANNIE [address] [facility] [address] [place] [address] PAF (paroxysmal atrial fibrillation) (Primary Dx); Typical atrial flutter; Essential hypertension; Obstructive sleep apnea syndrome; Obesity (BMI 30.0-34.9); Bradycardia Social History Tobacco Use Types Packs/Day Years Used Date Smoking Tobacco: Every Day Cigarettes 1.5 62.7 Started: 1964 Passive Smoke Exposure: Current Smokeless Tobacco: Never Alcohol Use Standard Drinks/Week Comments Not Currently 0 (1 standard drink = 0.6 oz pur e alcohol) [facility] Utilities Answer Date Recorded In the past 12 months has [employer], gas, oil, or water [employer] threatened to shut off services in your [...] GED or equivalent No 11/19/2024 Preferred Language Macedonian 11/19/2024 Sex and Gender Information Value Date [...] Simeon APRN - 12/09/2024 12:45 PM EDT [facility] Heart and Vascular Chief Complaint Atrial Fibrillation (S/p PVA, groin wound check) Subjective History of Present Illness {CC Problem List Visit Diagnosis Encounters Notes Medications Labs Result Review Imaging Media :23} Kirby Carroll Christiano presents to [facility] for History of Present Illness 74-year-old male with CAD, PAF/typical right atrial flutter (PVA 11/25/2024), Hypertension, diabetes, GERD, liver cirrhosis, hiatal hernia, Qiu's esophagus, chronic kidney disease stage III, COPD,YU (CPAP), tobacco use, obesity. Patient presented to [facility] on 11/25/2024 for pulmonary vein ablation [...] Imaging Med Tab Media :23} Echocardiogram 02/16/2024 ([facility]): EF 55%, impaired LV relaxation, RV [...] Description 02/28/2025 11:00 AM EST Office Visit [facility] [address] [facility] [address] [place] [address] Mark Guerra DO [address] [place] [address] 06/06/2025 10:30 AM EST Office Visit [facility] [address] [place] [address] Kirby Stack PA [address] [place] [address] 12/05/2025 11:30 AM EDT Office Visit [facility] [address] [place] [address] Mark uGerra DO [address] [place] [address] documented as of this encounter [...] has shortened Confirmed by SARAH HARDIN MD ([id number]) on 12/09/2024 3:08:54 PM Referred By: ANNIE [...] dysrhythmias documented in this encounter Care Teams Construction Rigger Relationship Specialty Start Date End Date Otilio Menendez MD [address] [place] [address] PCP - General Family Medicine 10/29/22 documented as of this encounter
--- OUTSIDE RECORDS SUMMARY | 2024-12-09 12:47 | XMS_ITS | Encounter Summary ---
Author Organization [facility] Address [address] [place] [address] Care Team Providers Care Trim Setter Name Role Phone Otilio Menendez MD Primary Care Provider +1- [phone] Encounter Details Date Type Department Care Team (Latest Contact Info) Description 12/09/2024 12:47 PM EDT - 12/09/2024 11:59 PM EDT Hospital Encounter [facility] [address] [place] [address] [address] [place] [address] PAF (paroxysmal atrial fibrillation); Typical atrial flutter; Bradycardia Discharge Disposition: Home or Self Care Social History Tobacco Use Types Packs/Day Years Used Date Smoking Tobacco: Every Day Cigarettes 1.5 62.7 Started: 1963 Passive Smoke Exposure: Current Smokeless Tobacco: Never Alcohol Use Standard Drinks/Week Comments Not Currently 0 (1 standard drink = 0.6 oz pur e alcohol) [facility] Utilities Answer Date Recorded In the past 12 months has [employer], [employer], oil, or water [employer] threatened to shut off services in your [...] GED or equivalent No 11/19/2024 Preferred Language Costa Rican 11/19/2024 Sex and Gender Information Value Date [...] tablet Take 100 mg by mouth Daily. Toprol XL 200 MG 24 hr tablet Take 1 tablet by mouth 2 (Two) Times a Day. 180 tablet 1 11/29/2024 VITAMIN C, CALCIUM ASCORBATE, PO Take 1 tablet by mouth Daily. documented as of this encounter Plan of Treatment Upcoming Encounters Date Type Department Care Team (Late st Contact Info) Description 02/28/2025 11:00 AM EST Office Visit [facility] [address] [place] [address] Mark Guerra DO [address] [place] [address] 06/06/2025 10:30 AM EST Office Visit [facility] [address] [place] [address] Kiryb Stack PA [address] [place], [place] [address] 12/05/2025 11:30 AM EDT Office Visit [facility] [address] [place] [address] Mark Guerra DO [address] [place] [address] documented as of this encounter Procedures Procedure Name Priority Date/Time Associated Diagnosis Comments ECG 12-LEAD Routine 12/09/2024 12:56 PM EDT PAF (paroxysmal atrial fibrillation) Typical atrial flutter Bradycardia documented in this encounter Results * ECG [...] Diagnosis PAF (paroxysmal atrial fibrillation) Atrial fibrillation Typical atrial flutter Bradycardia Other specified cardiac dysrhythmias documented in this encounter Care Teams Trim Setter Relationship Specialty Start Date End Date Otilio Menendez MD [address] [place] [address] PCP - General Family Medicine 10/29/22 documented as of this encounter
[2024-12-27 19:38] LABS: Hematocrit 46.6 % (42.0-52.0); Hemoglobin 15.2 g/dL (14.1-18.0); Immature Granulocytes % 0.4 %; Mean Corpuscular HGB Conc 32.6 g/dL (31.8-35.4); Mean Corpuscular Hemoglobin 33.2 pg (27.0-31.2); Mean Corpuscular Volume 101.7 fl (80-94); Nucleated Red Blood Cells % 0 %; Platelet Count 210 K/mm3 (142-424); Red Blood Count 4.58 M/mm3 (4.60-6.20); Red Cell Distribution Width-SD 50.4 fL; White Blood Count 12.7 K/mm3 (4.8-10.8)
[2024-12-27 20:13] LABS: Chloride 105 mmol/L (98-107); Sodium 141 mmol/L (136-145)
[2024-12-27 20:14] LABS: Potassium 4.9 mmoL/L (3.5-5.1)
[2024-12-27 20:16] LABS: Blood Urea Nitrogen 26 mg/dl (9-20); Creatinine,Serum 1.70 mg/dl (0.66-1.25); Estimated Glomerular Filt Rate 39 ml/min (>60); GFR (African American) 48 ML/MIN (>60)
[2024-12-27 20:17] LABS: Anion Gap 17.9 mEq/L (5-15); Calcium 9.5 mg/dl (8.4-10.2); Carbon Dioxide 23 mmol/L (22.0-30.0); Glucose 104 mg/dl (74-100)
[2024-12-27 22:15] LABS: Hemoglobin A1C 6.6 % (4.0-6.0)
--- OUTSIDE RECORDS SUMMARY | 2024-12-28 13:34 | XMS_ITS | Encounter Summary ---
Author Organization [facility] Address [address] [place] [address] Care Team Providers Care Coil Winder Hand Name Role Phone Otilio Menendez MD Primary Care Provider +1- [phone] Encounter Details Date Type Department Care Team (Latest Contact Info) Description 12/09/2024 Travel Social History Tobacco Use Types Packs/Day Years Used Date Smoking Tobacco: Every Day Cigarettes 1.5 62.7 Started: 1963 Passive Smoke Exposure: Current Smokeless Tobacco: Never Alcohol Use Standard Drinks/Week Comments Not Currently 0 (1 standard drink = 0.6 oz pur e alcohol) [facility] Utilities Answer Date Recorded In the past 12 months has [employer], gas, oil, or water [employer] threatened to shut off services in your [...] GED or equivalent No 11/19/2024 Preferred Language Belarusian 11/19/2024 Sex and Gender Information Value Date Recorded Sex Assigned at Not on file Legal Sex Male 11:07 AM EDT Gender Identity Not on file Sexual Orientation Not on file documented as of this encounter Plan of Treatment Upcoming Encounters Date Type Department Care Team (Late st Contact Info) Description 02/28/2025 11:00 AM EST Office Visit [facility] [address] [place] [address] Mark Guerra, DO [address] [place] [address] 06/06/2025 10:30 AM EST Office Visit [facility] [address] [facility] [address] [place] [address] Kirby Stack PA [address] [place], [place] [address] 12/05/2025 11:30 AM EDT Office Visit [facility] [address] [facility] [address] [place] [address] Mark Guerra DO [address] [facility] [address] [place] [address] documented as of this encounter Visit Diagnoses Not on filedocumented in this encounter Care Teams Coil Winder Hand Relationship Specialty Start Date End Date Otilio Menendez MD [address] [place] [address] PCP - General Family Medicine 10/29/22 documented as of this encounter
--- OUTSIDE RECORDS SUMMARY | 2024-12-28 13:34 | XMS_ITS | Encounter Summary ---
Author Organization [facility] Address [address] [place] [address] Care Team Providers Care Band Presser Name Role Phone Otilio Menendez MD Primary Care Provider +1- [phone] Encounter Details Date Type Department Care Team [...] Recorded In the past 12 months has [employer], gas, oil, or water [employer] threatened to shut off services in your [...] GED or equivalent No 11/19/2024 Preferred Language Icelandic 11/19/2024 Sex and Gender Information Value Date [...] 8:50 AM EDT Abby Bernard RN * [place] Suicide Severity Rating Scale (Screener/Recent Self-Report) Question Answer Date of Assessment Author 6. Suicidal Behavior (Lifetime) No 8:50 AM EDT Abby Bernard RN documented as of this encounter Plan of Treatment Upcoming Encounters Date Type Department Care Team (Late st Contact Info) Description 02/28/2025 11:00 AM EST Office Visit [facility] [address] [facility] [address] [place] [address] Mark Guerra, DO [address] [place], [place] [address] 06/06/2025 10:30 AM EST Office Visit [facility] [address] [facility] [address] [place] [address] Kirby Stack PA [address] [place] [address] 12/05/2025 11:30 AM EDT Office Visit [facility] [address] [facility] [address] [place] [address] Mark Guerra, DO [address] [place] [address] documented as of this encounter Visit Diagnoses Not on filedocumented in this encounter Care Teams Band Presser Relationship Specialty Start Date End Date Otilio Menendez MD [address] [place] [address] PCP - General Family Medicine 10/29/22 documented as of this encounter
--- OUTSIDE RECORDS SUMMARY | 2024-12-28 13:34 | XMS_ITS | Encounter Summary ---
Author Organization [facility] Address [address] [place] [address] Care Team Providers Care Forging Dies Final Finisher Name Role Phone Otilio Menendez MD Primary Care Provider +1- [phone] Encounter Details Date Type Department Care Team (Latest Contact Info) Description 11/19/2024 Travel Social History Tobacco Use Types Packs/Day Years Used Date Smoking Tobacco: Every Day Cigarettes 1.5 62.7 Started: 1963 Passive Smoke Exposure: Current Smokeless Tobacco: Never Alcohol Use Standard Drinks/Week Comments Not Currently 0 (1 standard drink = 0.6 oz pur e alcohol) [facility] Utilities Answer Date Recorded In the past 12 months has [employer], gas, oil, or water [employer] threatened to shut off services in your [...] GED or equivalent No 11/19/2024 Preferred Language Pitcairn Islander 11/19/2024 Sex and Gender Information Value [...] [facility] C[facility] [address] [place] [address] Mark Guerra, DO [address] [place] [address] 06/06/2025 10:30 AM EST Office Visit [facility] C[facility] [address] [facility] [address] [place] [address] Kirby Stack PA [address] [place], [place] [address] 12/05/2025 11:30 AM EDT Office Visit [facility] [address] [facility] [address] [place] [address] Mark Guerra DO [address] [facility] [address] [place] [address] documented as of this encounter Visit Diagnoses Not on filedocumented in this encounter Care Teams Forging Dies Final Finisher Relationship Specialty Start Date End Date Otilio Menendez MD [address] [place] [address] PCP - General Family Medicine 10/29/22 documented as of this encounter
--- OUTSIDE RECORDS SUMMARY | 2024-12-28 13:34 | XMS_ITS | Encounter Summary ---
[facility] Organization [facility] Address [address] [place] [address] Care Team Providers Care Greenskeeper Laborer Name Role Phone Otilio Menendez MD Primary Care Provider +1- [phone] Encounter Details Date Type Department Care Team ([facility] Contact Info) Description 11/24/2024 Telephone [facility] [address] [facility] [address] [place] [address] Mirta Gonzáles RN Social History Tobacco Use Types Packs/Day Years Used Date Smoking Tobacco: Every Day Cigarettes 1.5 62.7 Started: 1963 Passive Smoke Exposure: Current Smokeless Tobacco: Never Alcohol Use Standard Drinks/Week Comments Not Currently 0 (1 standard drink = 0.6 oz pur e alcohol) [facility] Utilities Answer Date Recorded In the past 12 months has e [employer], gas, oil, or water [employer] threatened to shut off services in your [...] GED or equivalent No 11/19/2024 Preferred Language Honduran 11/19/2024 Sex and Gender Information Value Date [...] If patient calls back, please transfer to [phone] * Telephone Encounter - Mirta Gonzáles RN [...] Description 02/28/2025 11:00 AM EST Office Visit [facility]IOLOG[facility] [address] [facility] [place] [address] Mark Guerra, DO [address] [place] [address] 06/06/2025 10:30 AM EST Office Visit [facility] [address] [facility] [address] [place] [address] Kirby Stack PA [address] [address] [place] [address] 12/05/2025 11:30 AM EDT Office Visit [facility] [address] [place] [address] Mark Guerra, DO [address] [place] [address] documented as of this encounter Visit Diagnoses Not on filedocumented in this encounter Care Teams Greenskeeper Laborer Relationship Specialty Start Date End Date Otilio Menendez MD [address] [place] [address] PCP - General Family Medicine 10/29/22 documented as of this encounter
--- OUTSIDE RECORDS SUMMARY | 2024-12-28 13:34 | XMS_ITS | Encounter Summary ---
Author Organization [facility] Address [address] [place] [address] Care Team Providers Care Senior Accounting Manager Name Role Phone Otilio Menendez MD Primary Care Provider +1- [phone] Reason for Visit * Reason Onset Date Comments Hypertension 12/20/2024 Encounter Details Date Type Department Care Team ([facility] Contact Info) Description 12/20/2024 Telephone [facility] CARDI[facility] [address] [place] [address] [address] [place] [address] Erik Dailey, RN Hypertension Social History Tobacco Use Types Packs/Day Years Used Date Smoking Tobacco: Every Day Cigarettes 1.5 62.7 Started: 1963 Passive Smoke Exposure: Current Smokeless Tobacco: Never Alcohol Use Standard Drinks/Week Comments Not Currently 0 (1 standard drink = 0.6 oz pur e alcohol) [facility] Utilities Answer Date Recorded In the past 12 months has [employer], gas, oil, or water [employer] threatened to shut off services in your [...] Office Visit [facility] CARDIOLOGY [address] [facility] [address] [place] [address] Mark Geurra DO [address] [place] [address] 06/06/2025 10:30 AM EST Office Visit [facility] [address] [facility] [address] [place] [address] Kirby Stack PA [address] [place] [address] 12/05/2025 11:30 AM EDT Office Visit [facility] C[facility] [address] [place] [address] Mark Guerra, DO [address] [place] [address] documented as of this encounter Visit Diagnoses Not on filedocumented in this encounter Care Teams Senior Accounting Manager Relationship Specialty Start Date End Date Otilio Menendez MD [address] [place] [address] PCP - General Family Medicine 10/29/22 documented as of this encounter
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
--- OUTSIDE RECORDS SUMMARY | 2024-12-28 13:34 | XMS_ITS | Encounter Summary ---
[facility] Address [address] [place] [address] Care Team Providers Care Chassis Wirer Name Role Phone Otilio Menendez MD Primary Care Provider +1- [phone] Encounter Details Date Type Department Care Team ([facility] st Contact Info) Description 12/03/2024 Telephone [facility] [address] [facility] [address] [place] [address] Donya Davies APRN [address] [facility] [address] [place] [address] Social History Tobacco Use Types Packs/Day Years Used Date Smoking Tobacco: Every Day Cigarettes 1.5 62.7 Started: 1963 Passive Smoke Exposure: Current Smokeless Tobacco: Never Alcohol Use Standard Drinks/Week Comments Not Currently 0 (1 standard drink = 0.6 oz pur e alcohol) [facility] Utilities Answer Date Recorded In the past 12 months has [employer], gas, oil, or water [employer] threatened to shut off services in your [...] GED or equivalent No 11/19/2024 Preferred Language Russian 11/19/2024 Sex and Gender Information Value Date [...] Description 02/28/2025 11:00 AM EST Office Visit [facility] [address] [place] [address] Mark Guerra, DO [address] [place] [address] 06/06/2025 10:30 AM EST Office Visit [facility] [address] [facility] [facility] [place] [address] Kirby Stack PA [address] [place] [address] 12/05/2025 11:30 AM EDT Office Visit [facility] [address] [facility] [place] [address] Mark Guerra, DO [address] [place] [address] documented as of this encounter Visit Diagnoses Not on filedocumented in this encounter Care Teams Chassis Wirer Relationship Specialty Start Date End Date Otilio Menendez MD [address] [place] [address] [place] [address] PCP - General Family Medicine 10/29/22 documented as of this encounter
--- OUTSIDE RECORDS SUMMARY | 2024-12-28 13:34 | XMS_ITS | Encounter Summary ---
[facility] Address [address] [place] [address] Care Team Providers Care Insurance Risk Manager Name Role Phone Otilio Menendez MD Primary Care Provider +1- [phone] Reason for Visit * Reason Onset Date Comments PCI/Device 11/26/2024 Encounter Details Date Type Department Care Team ([facility] Contact Info) Description 11/26/2024 Call Center Programs [facility] [address] [place] [address] Sue Harrell RN Social History Tobacco Use Types Packs/Day Years Used Date Smoking Tobacco: Every Day Cigarettes 1.5 62.7 Started: 1963 Passive Smoke Exposure: Current Smokeless Tobacco: Never Alcohol Use Standard Drinks/Week Comments Not Currently 0 (1 standard drink = 0.6 oz pur e alcohol) [facility] Utilities Answer Date Recorded In the past 12 months has [employer], gas, oil, or water [employer] threatened to shut off services in [...] Flowsheet Row Responses Facility patient discharged from? [place] Procedure date 11/25/24 Procedure (if device, specify [...] patient have an appointment scheduled with the rn cardiology? Yes If the patient is a current [...] Visit [facility] [address] [facility] [address] [place] [address] Mark Guerra DO [address] [facility] [address] [place] [address] 06/06/2025 10:30 AM EST Office Visit [facility] [address] [facility] [address] [place] [address] Kirby Stack PA [address] [facility] [address] [place] [address] 12/05/2025 11:30 AM EDT Office Visit [facility] [address] [place] [address] Mark Guerra DO [address] [place] [address] documented as of this encounter Visit Diagnoses Not on filedocumented in this encounter Care Teams Insurance Risk Manager Relationship Specialty Start Date End Date Otilio Menendez MD [address] [place] [address] [place] [address] PCP - General Family Medicine 10/29/22 documented as of this encounter
--- OUTSIDE RECORDS SUMMARY | 2024-12-28 13:34 | XMS_ITS ---
Author Organization [facility] Address [address] [place] [address] Care Team Providers Care Childcare Attendant Name Role Phone Otilio Menendez MD Primary Care Provider +1- [phone] Active Problems Problem Noted Date Diagnosed Date [...] apnea 12/11/2022 Coronary artery disease invo lving cahto coronary artery of cahto heart without angina pectoris 10/29/2022 Essential hypertension [...]
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
--- OUTSIDE RECORDS SUMMARY | 2024-12-28 13:35 | XMS_ITS | Encounter Summary ---
[facility] [address] [place] [address] Care Team Providers Care Rn Teacher Name Role Phone Otilio Menendez MD Primary Care Provider +1- [phone] Reason for Visit * Reason Onset Date Comments Hypertension 11/29/2024 Encounter Details Date Type Department Care Team ([facility] Contact Info) Description 11/29/2024 Telephone [facility] CARDIOLOGY [address] [place] [address] [address] [place] [address] Erik Dailey, RN Hypertension Social History Tobacco Use Types Packs/Day Years Used Date Smoking Tobacco: Every Day Cigarettes 1.5 62.7 Started: 1963 Passive Smoke Exposure: Current Smokeless Tobacco: Never Alcohol Use Standard Drinks/Week Comments Not Currently 0 (1 standard drink = 0.6 oz pur e alcohol) [facility] Utilities Answer Date Recorded In the past 12 months has [employer], gas, oil, or water [employer] threatened to shut off services in your [...] GED or equivalent No 11/19/2024 Preferred Language New Zealander 11/19/2024 Sex and Gender Information Value Date [...] Description 02/28/2025 11:00 AM EST Office Visit [facility] [address] [facility] [address] [place] [address] Mark Guerra DO [address] [facility] [address] [place] [address] 06/06/2025 10:30 AM EST Office Visit [facility] [address] [facility] [address] [place] [address] Kirby Stack PA [address] [facility] [address] [place] [address] 12/05/2025 11:30 AM EDT Office Visit [facility] [address] [place] [address] Mark Guerra, DO [address] [place] [address] documented as of this encounter Visit Diagnoses Not on filedocumented in this encounter Care Teams Rn Teacher Relationship Specialty Start Date End Date Otilio Menendez MD [address] [place] [address] [place] [address] PCP - General Family Medicine 10/29/22 documented as of this encounter
--- OUTSIDE RECORDS SUMMARY | 2024-12-28 13:35 | XMS_ITS | Encounter Summary ---
[facility] Address [address] [place] [address] Care Team Providers Care Two Way Radio Technician Name Role Phone Otilio Menendez MD Primary Care Provider +1- [phone] Reason for Visit * Reason Onset Date Comments PCI/Device 11/26/2024 Encounter Details Date Type Department Care Team ([facility] Contact Info) Description 11/26/2024 Call Center Programs [facility] [address] [place] [address] Sue Harrell RN Social History Tobacco Use Types Packs/Day Years Used Date Smoking Tobacco: Every Day Cigarettes 1.5 62.7 Started: 1963 Passive Smoke Exposure: Current Smokeless Tobacco: Never Alcohol Use Standard Drinks/Week Comments Not Currently 0 (1 standard drink = 0.6 oz pur e alcohol) [facility] Utilities Answer Date Recorded In the past 12 months has [employer], gas, oil, or water [employer] threatened to shut off services in your [...] Flowsheet Row Responses Facility patient discharged from? [place] Procedure date 11/25/24 Procedure (if device, specify in description) Ablation Performing MD Dr. Mark Guerra Attempt successful? No Unsuccessful attempts Attempt 1 Sue Mcmullen - Registered Nurse documented in this encounter Plan of Treatment Upcoming Encounters Date Type Department Care Team (Late st Contact Info) Description 02/28/2025 11:00 AM EST Office Visit [facility] [address] [facility] [address] [place] [address] Mark Guerra, [address] [place] [address] 06/06/2025 10:30 AM EST Office Visit [facility] [address] [facility] [address] [place] [address] Kirby Stack PA [address] [place] [address] 12/05/2025 11:30 AM EDT Office Visit [facility] [address] [facility] [address] [place] [address] Mark Guerra DO [address] [place] [address] documented as of this encounter Visit Diagnoses Not on filedocumented in this encounter Care Teams Two Way Radio Technician Relationship Specialty Start Date End Date Otilio Menendez MD [address] [place] [address] PCP - General Family Medicine 10/29/22 documented as of this encounter
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
== END 2024-12-27 23:59 | disposition home or self-care (01) ==
LOC: LAB.DROPOF 12-28 13:32
PROVIDERS: PCP Family Medicine; Visit Provider Family Medicine
DX: E11.9 Type 2 diabetes mellitus without complications (principal); I10 Essential (primary) hypertension; Z12.5 Encounter for screening for malignant neoplasm of prostate; Z85.46 Personal history of malignant neoplasm of prostate
CPT/HCPCS: 80048; 83036; 85025; G0103

== ENCOUNTER 2024-12-28 09:50 | Outpatient (CLI) | payer MEDICARE, BC, SELFPAY ==
--- OUTSIDE RECORDS SUMMARY | 2024-11-19 12:30 | XMS_ITS | Encounter Summary ---
[facility] Address [address] [place] [address] Care Team Providers Care Talkback Host Name Role Phone Otilio Menendez MD Primary Care Provider +1- [phone] Encounter Details Date Type Department Care Team (Latest Contact Info) Description 11/19/2024 12:30 PM EDT Pre-Admission Testing [facility] PREADMISSION T [address] [place] [address] PAF (paroxysmal atrial fibrillation) Social History Tobacco Use Types Packs/Day Years Used Date Smoking Tobacco: Every Day Cigarettes 1.5 62.7 Started: 1963 Passive Smoke Exposure: Current Smokeless Tobacco: Never Tobacco Cessation:Ready to Q uit: No; Counseling Given: Not Answered Alcohol Use Standard Drinks/Week Comments Not Currently 0 (1 standard drink = 0.6 oz pur e alcohol) [facility] Utilities Answer Date Recorded In the past 12 months has [employer], gas, oil, or water [employer] threatened to shut off services in your [...] GED or equivalent No 11/19/2024 Preferred Language Danish 11/19/2024 Sex and Gender Information Value Date Recorded Sex Assigned at Not on file Legal Sex Male 11:07 AM EDT Gender Identity Not on file Sexual Orientation Not on file documented as of this encounter Plan of Treatment Upcoming Encounters Date Type Department Care Team (Late st Contact Info) Description 02/28/2025 11:00 AM EST Office Visit [facility] [address] [facility] [address] [place] [address] Mark Guerra, DO [address] [place] [address] 06/06/2025 10:30 AM EST Office Visit [facility] [address] [facility] [address] [address] [place] [address] Kirby Stack PA [address] [place], [place] [address] 12/05/2025 11:30 AM EDT Office Visit [facility] [address] [facility] [address] [address] [place] [address] Mark Guerra, DO [address] [place], [place] [id number] documented as of this encounter Procedures Procedure Name Priority Date/Time Associated Diagnosis Comments CBC (NO DIFF) Routine 11/19/2024 12:12 PM EDT PAF (paroxysmal atrial fibrillation) BASIC METABOLIC PANEL Routine 11/19/2024 12:12 PM EDT PAF (paroxysmal atrial fibrillation) documented in this encounter Results * (ABNORMAL) Basic Metabolic Panel (11/19/2024 12:12 PM EDT) Glucose 87 65 - 99 mg/dL 11/19/2024 12:58 PM EDT [facility] BUN 23.2(H) 8.0 - 23.0 mg/dL 11/19/2024 12:58 PM EDT [facility] Creatinine 1.64(H) 0.76 - 1.27 mg/dL 11/19/2024 12:58 PM EDT [facility] Sodium 137 136 - 145 mmol/L 11/19/2024 12:58 PM EDT [facility] Potassium 4.7 3.5 - 5.2 mmol/L 11/19/2024 12:58 PM EDT [facility] Comment:Slight hemolysis det ected by analyzer. Result may be falsely elevated. Chloride 103 98 - 107 mmol/L 11/19/2024 12:58 PM EDT [facility] CO2 25.0 22.0 - 29.0 mmol/L 11/19/2024 12:58 PM EDT [facility] Calcium 9.3 8.6 - 10.5 mg/dL 11/19/2024 12:58 PM EDT [facility] BUN/Creatinine Ratio 14.1 7.0 - 25.0 11/19/2024 12:58 PM EDT [facility] Anion Gap 9.0 5.0 - 15.0 mmol/L 11/19/2024 12:58 PM EDT [facility] eGFR 43.4(L) >60.0 mL/min/1.7 3 11/19/2024 12:58 PM EDT [facility] Blood Venipuncture / Unknown 11/19/2024 12:12 PM EDT 11/19/2024 12:31 PM EDT Narrative [facility] - 11/19/2024 12:58 PM EDT GFR [...] Davies APRN LAB BLOOD ORDERABLES Final Result [facility]
[address] [place] [address], * (ABNORMAL) CBC (No Diff) (11/19/2024 12:12 PM EDT) WBC 13.52(H) 3.40 - 10.80 10*3/mm3 11/19/2024 12:43 PM EDT [facility] RBC 4.82 4.14 - 5.80 10*6/mm3 11/19/2024 12:43 PM EDT [facility] Hemoglobin 15.9 13.0 - 17.7 g/dL 11/19/2024 12:43 PM EDT [facility] Hematocrit 48.2 37.5 - 51.0 % 11/19/2024 12:43 PM EDT [facility] MCV 100.0(H) 79.0 - 97.0 fL 11/19/2024 12:43 PM EDT [facility] MCH 33.0 26.6 - 33.0 pg 11/19/2024 12:43 PM EDT [facility] MCHC 33.0 31.5 - 35.7 g/dL 11/19/2024 12:43 PM EDT [facility] RDW 13.6 12.3 - 15.4 % 11/19/2024 12:43 PM EDT [facility] RDW-SD 50.3 37.0 - 54.0 fl 11/19/2024 12:43 PM EDT [facility] MPV 11.4 6.0 - 12.0 fL 11/19/2024 12:43 PM EDT [facility] Platelets 184 140 - 450 10*3/mm3 11/19/2024 12:43 PM EDT [facility] Blood Venipuncture / Unknown 11/19/2024 12:12 PM EDT 11/19/2024 12:31 PM EDT Donya Davies APRN LAB BLOOD ORDERABLES Final Result [facility]
[address] [id number], documented in this encounter Visit Diagnoses Diagnosis PAF (paroxysmal atrial fibrillation) Atrial fibrillation documented in this encounter Care Teams Talkback Host Relationship Specialty Start Date End Date Otilio Menendez MD [address] [place] [address] PCP - General Family Medicine 10/29/22 documented as of this encounter
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
--- OUTSIDE RECORDS SUMMARY | 2024-11-25 08:24 | XMS_ITS | Encounter Summary ---
Author Organization [facility] Address [address] [place] [address] Care Team Providers Care Loss Prevention Supervisor Name Role Phone Otilio Menendez MD Primary Care Provider +1- [phone] Reason for Referral * Invasive Procedures (Routine) - Pending Review Specialty Diagnoses / Procedures Referred By Lawanda jones Referred To Contact Diagnoses PAF (paroxysmal atrial fibrillation) Procedures EP/CRM Study Kirby Stack PA [address] [place] [address] Phone: tel: fax: Referral ID Status Reason Start Date Expiration Date V isits Requested Visits Authorized Pending Review 09/17/2024 12/17/2025 1 1 Reason for Visit * Auth/Cert Specialty Diagnoses / Procedures Referred By Lawanda jones Referred To Contact Diagnoses PAF (paroxysmal atrial fibrillation) afib Procedures MD ABLATE L/R ATRIAL FIBRIL W/ISOLATED PULM VEIN MD COMPRE EP EVAL ABLTJ ATR FIB PULM VEIN ISOLATION MD INTRACARDIAC ELECTROPHYSIOLOGIC 3D MAPPING MD COMPRE EP EVAL W/L ATRIAL PACG&REC C SINS/L ATR MD PROGRAMMED STIMJ & PACG AFTER IV DRUG INFUSION MD COMPRE EP EVAL W/LEFT VENTRICULAR PACING/REC MD N-INVAS AUGMNT ARRHYT FREDA RAJAN CAR ARRHYT SIMUL MD ICAR CATH ABLATION DISCRETE MECHANISM ARRHYTHMIA MD CLOSURE DEV, VASC Ablation atrial fibrillation; PFA; Rhythmia; General anesthesia; Preop CT; Do not hold anticoagulation Referral ID Status Reason Start Date Expiration Date Visits Re quested Visits Authorized [id number] 1 1 Encounter Details Date Type Department Care Team (Late st Contact Info) Description 11/25/2024 8:24 AM EDT - 11/25/2024 3:56 PM EDT Hospital Encounter [facility] [address] [place] [id number] Mark Guerra, DO [address] [place] [address] PAF (paroxysmal atrial fibrillation) Discharge Disposition: Home or Self Care Social History Tobacco Use Types Packs/Day Years Used Date Smoking Tobacco: Every Day Cigarettes 1.5 62.7 Started: 1963 Passive Smoke Exposure: Current Smokeless Tobacco: Never Alcohol Use Standard Drinks/Week Comments Not Currently 0 (1 standard drink = 0.6 oz pur e alcohol) [facility] Utilities Answer Date Recorded In the past 12 months has e [employer] gas, oil, or water [employer] threatened to shut off services in your [...] GED or equivalent No 11/19/2024 Preferred Language Taiwanese 11/19/2024 Sex and Gender Information Value Date [...] 8:50 AM EDT Abby Bernard RN * [place] Suicide Severity Rating Scale (Screener/Recent Self-Report) Question Answer Date of Assessment Author 6. Suicidal Behavior (Lifetime) No 8:50 AM EDT Abby Bernard RN documented as of this encounter Discharge Instructions * Attachments The following attachments cannot be sent through Care Everywhere. * Cardiac Ablation ([place]aiwanese) * Femoral Site Care (Taiwanese) * General Anesthesia Adult Care After (Taiwanese) * Rivaroxaban Tablets (Taiwanese) * Atrial Fibrillation (Taiwanese) documented in this encounter Medications at Time [...] Physician (Cardiology) Reggie Ndiaye PA-C as Physician Refinisher (Cardiology) Chief complaint paroxysmal atrial fibrillation Subjective [...] CHOLECYSTECTOMY LAPAROSCOPIC; Surgeon: Alfonso Jack MD; Location: [facility]; Service: General; Laterality: N/A; COLONOSCOPY FOREIGN BODY [...] least 90 days Donya Davies APRN Electrophysiology [facility] [facility] Cosigned by Mark Guerra DO at 11/30/2024 3:17 PM EDT Associated attestation - Mark Guerra DO - 11/30/2024 3:17 PM EDT I have reviewed this documentation and agree. documented in this encounter Nursing Notes * Mirta Gonzáles, RN - 10/25/2024 7:43 AM EDTSummary: Pre-PVA Assessment PRE-PVA ASSESSMENT Kirby Alvarado 1950 [address] [facility] [address] Referral Source: Otilio Menendez MD Information obtained [...] NO [] TIA NO [x] CAD [] [place] NO [x] Dyslipidemia [x] Statin indicated: Crestor [...] were not included. Cardiac Electrophysiology Procedure Note [facility] at [facility] CATHETER ABLATION FOR ATRIAL FIBRILLATION (PVI) [...] times throughout the procedure. We used the [employer] 3D electroanatomic mapping system in conjunction with [...] per routine follow up. Mark Guerra DO, [facility], [facility] Cardiac Briar Cutter [facility] / [facility] ' documented in this encounter Plan of Treatment Upcoming Encounters Date Type Department Care Team (Late st Contact Info) Description 02/28/2025 11:00 AM EST Office Visit [facility] CARDIOLOGY [address] [place] [phone] Mark Guerra DO [address] [place] [address] 06/06/2025 10:30 AM EST Office Visit [facility] [address] [facility] [address] [place] [address] Kibry Stakc PA [address] [facility] [address] [place] [address] 12/05/2025 11:30 AM EDT Office Visit [facility] [address] [place] [address] Mark Guerra DO [address] [place] [address] documented as of this encounter [...] in Lateral leads Confirmed by Deandre Vaughn ([id number]) on 11/29/2024 5:13:27 PM Referred By: Confirmed [...] in Lateral leads Confirmed by Deandre Vaughn ([id number]) on 11/29/2024 5:13:27 PM Referred By: Confirmed By: Deandre Vaughn us Mark Guerra DO ECG ORDERABLES Final Result ECG * ABLATION A-FIB (11/25/2024 11:23 AM EDT) Anatomical Region Laterality Modality X-Ray Angiograph y Narrative 11/25/2024 11:41 AM EDT Procedure Narrative Cardiac Electrophysiology Procedure Note [facility] at [facility] CATHETER ABLATION FOR ATRIAL FIBRILLATION (PVI) [...] times throughout the procedure. We used the [employer] 3D electroanatomic mapping system in conjunction with [...] up. Mark Guerra DO, FAC, RS Cardiac Briar Cutter [facility] / [facility] ' Risks, benefits and alternatives [...] - 152 Seconds 12/02/2024 5:32 AM EDT [facility] Comment:Serial Number: [id number]: [id number] Blood 11/25/2024 11:0 4 AM EDT 12/02/2024 5:32 AM EDT Mark Guerra DO POINT OF CARE TEST ORDERABLES F inal Result [facility]
[address] [place] [address], * Telemetry Scan (11/25/2024 9:07 AM EDT) [facility] Onbase ECG ORDERABLES Final Result documented [...] day, May switch to NS IV at [facility] if renal / if indicated New [...] and THEN promethazine IF ondansetron is ineffective. ([facility]) sodium chloride 0.9 % flush 10 [...] (Given - Provider: Mendel Wren RN) heparin 20138 units/250 mL (100 units/mL) in 0.45 % [...] at 1050 1050 (Given - Provid er: aMrk Guerra DO) lidocaine PF 1% (XYLOCAINE) injection [...] and THEN promethazine IF ondansetron is ineffective. ([facility]) documented in this encounter Care Teams Loss Prevention Supervisor Relationship Specialty Start Date End Date Otilio Menendez MD [address] [place] [address] PCP - General Family Medicine 10/29/22 documented as of this encounter
--- OUTSIDE RECORDS SUMMARY | 2024-11-25 10:10 | XMS_ITS | Encounter Summary ---
[facility] [address] [place] [address] Care Team Providers Care Note Keeper Name Role Phone Otilio Menendez MD Primary Care Provider +1- [phone] Reason for Visit * Auth/Cert Specialty Diagnoses / Procedures Referred By Contac t Referred To Contact Diagnoses PAF (paroxysmal atrial fibrillation) afib Procedures [place] ABLATE L/R ATRIAL FIBRIL W/ISOLATED PULM VEIN TN COMPRE EP EVAL ABLTJ ATR FIB PULM VEIN ISOLATION TN INTRACARDIAC ELECTROPHYSIOLOGIC 3D MAPPING TN COMPRE EP EVAL W/L ATRIAL PACG&REC C SINS/L ATR TN PROGRAMMED STIMJ & PACG AFTER IV DRUG INFUSION TN COMPRE EP EVAL W/LEFT VENTRICULAR PACING/REC TN N-INVAS AUGMNT ARRHYT FREDA RAJAN CAR ARRHYT SIMUL TN ICAR CATH ABLATION DISCRETE MECHANISM ARRHYTHMIA TN CLOSURE DEV, VASC Ablation atrial fibrillation; PFA; Rhythmia; General anesthesia; Preop CT; Do not hold anticoagulation Referral ID Status Reason Start Date Expiration Date Visits Re quested Visits Authorized [id number] 1 1 Encounter Details Date Type Department Care Team (Late st Contact Info) Description 11/25/2024 10:10 AM EDT - 11/25/2024 11:10 AM EDT Surgery [facility] EP LAB [address] [place] [id number] Mark Guerra, DO [address] [facility] [address] [place] [address] Ablation atrial fibrillation; PFA; Rhythmia General anesthesia Preop CT Do not hold anticoagulation [83853 (CPT ) +8 more] Social History Tobacco Use Types Packs/Day Years Used Date Smoking Tobacco: Every Day Cigarettes 1.5 62.7 Started: 1964 Passive Smoke Exposure: Current Smokeless Tobacco: Never Alcohol Use Standard Drinks/Week Comments Not Currently 0 (1 standard drink = 0.6 oz pur e alcohol) [facility] Utilities Answer Date Recorded In the past [...] GED or equivalent No 11/19/2024 Preferred Language Indonesian 11/19/2024 Sex and Gender Information Value Date [...] 8:50 AM EDT Abby Bernard RN * [facility] Suicide Severity Rating Scale (Screener/Recent Self-Report) Question Answer Date of Assessment Author 6. Suicidal Behavior (Lifetime) No 5 8:50 AM EDT Abby Bernard RN documented as of this encounter Discharge Instructions * Attachments The following attachments cannot be sent through Care Everywhere. * Cardiac Ablation (Indonesian) * Femoral Site Care (Indonesian) * General Anesthesia Adult Care After (Indonesian) * Rivaroxaban Tablets (Indonesian) * Atrial Fibrillation (Indonesian) documented in this encounter Medications at Time [...] Physician (Cardiology) Reggie Ndiaye PA-C as Physician Procurement Officer (Cardiology) Chief complaint paroxysmal atrial fibrillation Subjective [...] least 90 days Donya Davies APRN Electrophysiology [facility] Cosigned by Mark Guerra DO at 11/30/2024 3:17 PM EDT Associated attestation - Mark Guerra DO - 11/30/2024 3:17 PM EDT I have reviewed this documentation and agree. documented in this encounter Nursing Notes * Mirta Gonzáles RN - 10/25/2024 7:43 AM EDTSummary: Pre-PVA Assessment PRE-PVA ASSESSMENT [place] 1950 [address] [facility] [address] Referral Source: Otilio Menendez MD Information obtained [...] NO [] TIA NO [x] CAD [] [place] NO [x] Dyslipidemia [x] Statin indicated: Crestor [...] were not included. Cardiac Electrophysiology Procedure Note [facility] CATHETER ABLATION FOR ATRIAL FIBRILLATION (PVI) PROCEDURES [...] times throughout the procedure. We used the [employer] 3D electroanatomic mapping system in conjunction with [...] routine follow up. Mark Guerra DO, [facility], [facility] Cardiac Recoater [facility] / [facility] ' documented in this encounter Plan of Treatment Upcoming Encounters Date Type Department Care Team (Late st Contact Info) Description 02/28/2025 11:00 AM EST Office [facility] [address] [facility] [address] [place] [address] Mark Guerra DO [facility] [facility] [address] [address] 06/06/2025 10:30 AM EST Office Visit [facility] C[facility] [address] [facility] [address] [place] [address] Kirby Stack PA [address] [facility] [address]LD[address] [place] [address] 12/05/2025 11:30 AM EDT Office Visit [facility] [address] [facility] [address] [place] [address] Mark Guerra, DO [address] [place] [id number] documented as of this encounter Procedures Procedure [...] EDT Procedure Narrative Cardiac Electrophysiology Procedure Note [facility] CATHETER ABLATION FOR ATRIAL FIBRILLATION (PVI) PROCEDURES [...] times throughout the procedure. We used the [employer] 3D electroanatomic mapping system in conjunction with [...] routine follow up. Mark Guerra, , [facility], [facility] Cardiac Recoater [facility] / [facility] ' Risks, benefits and alternatives were discussed with the patient and/or family. Plan is for monitored anesthesia care. Less than 20 mL of estimated blood loss during the case. No specimen was collected during the case. JEANNE Perez CV ELECTROPHYSIOLOGY ORDER BENNY Final Result * (ABNORMAL) POC Activated Clotting Time (11/25/2024 11:04 AM EDT) [facility] Signature Activated Clotting Time 302(H) 82 - 152 Seconds 12/02/2024 5:32 AM EDT [facility] Comment:Serial Number: [id number] 2Operator: [id number] Blood 11/25/2024 11:0 4 AM EDT 12/02/2024 5:32 AM EDT Mark Guerra DO POINT OF CARE TEST ORDERABLES F inal Result [facility]
[address] [place] [address], * Telemetry Scan (11/25/2024 9:07 AM EDT) [facility] Onbase ECG ORDERABLES Final Result documented in [...] Once As Needed, Nausea, Vomiting, Starting on Charmaien 11/25/24 at 1508, For 2 doses famotidine [...] 11/25/2024 10:53 AM EDT 16,000 Units heparin 81265 units/250 mL (100 units/mL) in 0.45 % [...] day, May switch to NS IV at [facility] if renal / if [...] Every 12 Hours Scheduled, First dose on Charmiane 11/25/24 at 0903 0903 (Due) sodium chloride [...] (Given - Provider: Mendel Wren RN) heparin 31008 units/250 mL (100 units/mL) in 0.45 % [...] ([facility]) documented in this encounter Care Teams Note Keeper Relationship Specialty Start Date End Date Otilio Menendez MD [address] [place] [address] PCP - General Family Medicine 10/29/22 documented as of this encounter
--- OUTSIDE RECORDS SUMMARY | 2024-11-25 10:23 | XMS_ITS | Encounter Summary ---
[facility] Organization [facility] Address [address] [place] [address] Care Team Providers Care Bundler Seasonal Greenery Name Role Phone Otilio Menendez MD Primary Care Provider +1- [phone] Reason for Visit * Auth/Cert Specialty Diagnoses / Procedures Referred By Contac t Referred To Contact Diagnoses PAF (paroxysmal atrial fibrillation) afib Procedures AR ABLATE L/R ATRIAL FIBRIL W/ISOLATED PULM VEIN AR COMPRE EP EVAL ABLTJ ATR FIB PULM VEIN ISOLATION AR INTRACARDIAC ELECTROPHYSIOLOGIC 3D MAPPING AR COMPRE EP EVAL W/L ATRIAL PACG&REC C SINS/L ATR AR PROGRAMMED STIMJ & PACG AFTER IV DRUG INFUSION AR COMPRE EP EVAL W/LEFT VENTRICULAR PACING/REC AR N-INVAS AUGMNT ARRHYT FREDA RAJAN CAR ARRHYT SIMUL AR ICAR CATH ABLATION DISCRETE MECHANISM ARRHYTHMIA AR CLOSURE DEV, VASC Ablation atrial fibrillation; PFA; Rhythmia; General anesthesia; Preop CT; Do not hold anticoagulation Referral ID Status Reason Start Date Expiration Date Visits Re quested Visits Authorized [id number] 1 1 Encounter Details Date Type Department Care Team (Late st Contact Info) Description 11/25/2024 10:23 AM EDT Anesthesia Event [facility] [address] [place] [address] Agustin Castellon MD [address] [place] [address] Anesthesia Record Procedure Summary Procedure Name Responsible [...] by Elmer Grier RN 11/25/24 1122 by Elemr Grier RN documented in this encounter Social History Tobacco Use Types Packs/Day Years Used Date Smoking Tobacco: Every Day Cigarettes 1.5 62.7 Started: 1963 Passive Smoke Exposure: Current Smokeless Tobacco: Never Alcohol Use Standard Drinks/Week Comments Not Currently 0 (1 standard drink = 0.6 oz pur e alcohol) [facility] Utilities Answer Date Recorded In the past 12 months has [employer], gas, oil, or water [employer] threatened to shut off services in your [...] GED or equivalent No 11/19/2024 Preferred Language Colombian 11/19/2024 Sex and Gender Information Value Date [...] 8:50 AM EDT Abby Bernard RN * [place] Suicide Severity Rating Scale (Screener/Recent Self-Report) Question [...] and Staff Patient location during procedure: OR STENOTYPE MACHINE OPERATOR/CAA: Leonidas Salcedo CRNA Indications and Patient Condition [...] no thyroid disorder Musculoskeletal 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 Plan discussed with STENOTYPE MACHINE OPERATOR. CODE STATUS: documented in this encounter Plan of Treatment Upcoming Encounters Date Type Department Care Team (Late st Contact Info) Description 02/28/2025 11:00 AM EST Office Visit [facility] CARDIOLOGY [address] [facility] [address] [place] [address] Mark Guerra DO [address] [facility] [address] [place] [address] 06/06/2025 10:30 AM EST Office Visit [facility] CARD[facility] [address] [facility] [address] [place] [address] Kirby Stack PA [address] [facility] [address] [place] [address] 12/05/2025 11:30 AM EDT Office Visit [facility] CARD[facility] [address] [facility] [address] [place] [address] Mark Guerra, DO [address] [facility] [address] [place] [address] documented as of this encounter Procedures Procedure Name Priority Date/Time Associated Diagnosis Comments ANESTHESIA INTUBATION Routine 11/25/2024 10:40 AM EDT documented in this encounter Results * BH AN ETT AIRWAY (11/25/2024 10:40 AM EDT) Narrative Leonidas Salcedo CRNA - 11/25/2024 10:40 AM EDT Loenidas Salcedo CRNA 11/25/2024 10:40 AM Airway Reason: elective Date/Time: 11/25/2024 10:35 AM Airway not difficult General Information and Staff Patient location during procedure: OR STENOTYPE MACHINE OPERATOR/CAA: Leonidas Salcedo CRNA Indications and Patient Condition [...] mg documented in this encounter Care Teams Bundler Seasonal Greenery Relationship Specialty Start Date End Date Otilio Menendez MD [address] [place] [address] [place] [address] PCP - General Family Medicine 10/29/22 documented as of this encounter
--- OUTSIDE RECORDS SUMMARY | 2024-12-09 12:45 | XMS_ITS | Encounter Summary ---
[facility] Address [address] [place] [address] Care Team Providers Care Rack Cleaner Name Role Phone Otilio Menendez MD Primary Care Provider +1- [phone] Reason for Visit * Reason Comments Atrial Fibrillation S/p PVA, groin wound check Encounter Details Date Type Department Care Team ([facility] st Contact Info) Description 12/09/2024 12:45 PM EDT Office Visit [facility] CARDIOLOG[facility] [address] [facility] [address] [place] [address] Demetrice Simeon, ANNIE [address] [facility] [address] [place] [address] PAF (paroxysmal atrial fibrillation) (Primary Dx); Typical atrial flutter; Essential hypertension; Obstructive sleep apnea syndrome; Obesity (BMI 30.0-34.9); Bradycardia Social History Tobacco Use Types Packs/Day Years Used Date Smoking Tobacco: Every Day Cigarettes 1.5 62.7 Started: 1964 Passive Smoke Exposure: Current Smokeless Tobacco: Never Alcohol Use Standard Drinks/Week Comments Not Currently 0 (1 standard drink = 0.6 oz pur e alcohol) [facility] Utilities Answer Date Recorded In the past 12 months has [employer], gas, oil, or water [employer] threatened to shut off services in your [...] GED or equivalent No 11/19/2024 Preferred Language Eritrean 11/19/2024 Sex and Gender Information Value Date Recorded Sex Assigned at Not on file Legal Sex Male 11:07 AM EDT Gender Identity Not on file Sexual Orientation Not on file documented as of this encounter Last Filed Vital Signs Vital Sign Reading Time Taken Comments Blood Pressure 139/65 12/09/2024 12:22 PM EDT Pulse 56 12/09/2024 1:08 PM EDT Temperature - - Respiratory Rate - - Oxygen Saturation 95% 12/09/2024 12:20 PM EDT Inhaled Oxygen Concentration - - Weight 103 kg (227 lb) 12/09/2024 12:20 PM EDT Height 182.9 cm (6') 12/09/2024 12:20 PM EDT Body Mass Index 30.79 12/09/2024 12:20 PM EDT documented in this encounter Progress Notes * Demetrice Simeon APRN - 12/09/2024 12:45 PM EDT [facility] Heart [facility] Vascular Chief Complaint Atrial Fibrillation (S/p PVA, groin wound check) Subjective History of Present Illness {CC Problem List Visit Diagnosis Encounters Notes Medications Labs Result Review Imaging Media :23} Kirby Carroll Christiano presents to [facility] for History of Present Illness 74-year-old male with CAD, PAF/typical right atrial flutter (PVA 11/25/2024), Hypertension, diabetes, GERD, liver cirrhosis, hiatal hernia, Qiu's esophagus, chronic kidney disease stage III, COPD,YU (CPAP), tobacco use, obesity. Patient presented to [facility] on 11/25/2024 for pulmonary vein ablation (PFA) with Dr. Guerra. Shortly after ablation he had noticed some mild incisional bleeding that stopped with light pressure. NO CP or pressure, dyspnea at baseline (mild), baseline dizziness with rapid change in positions, no near syncope, syncope, edema. No palpitations. No awareness of afib before the ablation or after. Home BP and HR Lo/60-70's. HR 40-60's Objective Vital Signs: Vitals: 12/09/24 1220 12/09/24 1222 09/04/25 1308 BP: 137/60 139/65 BP Location: Left arm Left arm Patient Position: Sitting Standing Pulse: 52 (!) 32 56 SpO2: 95% Weight: 103 kg (227 lb) Height: 182.9 cm (72 ) Body mass index is 30.79 kg/m??. Physical Exam Vitals reviewed. Constitutional: General: He is not in acute distress. Neck: Vascular: No carotid bruit. Cardiovascular: Rate and Rhythm: Regular rhythm. Bradycardia present. Heart sounds: No murmur heard. Pulmonary: Effort: Pulmonary effort is normal. Breath sounds: Rhonchi present. Musculoskeletal: Right lower leg: No edema. Left lower leg: No edema. Skin: Coloration: Skin is not pale. Comments: Mild right groin bruising (yellow discoloration), small 1 inch diameter nodule at insertion site. No drainage, erythema, tenderness. Neurological: Mental Status: He is alert. Psychiatric: Mood and Affect: Mood normal. Behavior: Behavior normal. Behavior is cooperative. Result Review Data Reviewed:{ Labs Result Review Imaging Med Tab Media :23} Echocardiogram 02/16/2024 ([facility]): EF 55%, impaired LV relaxation, RV mildly dilated, LA normal size, no significant valvular disease. Lab Results Component Value Date GLUCOSE 87 11/19/2024 CALCIUM 9.3 11/19/2024 NA 137 11/19/2024 K 4.7 11/19/2024 CO2 25.0 11/19/2024 CL 103 11/19/2024 BUN 23.2 (H) 11/19/2024 CREATININE 1.64 (H) 11/19/2024 EGFR 43.4 (L) 11/19/2024 BCR 14.1 11/19/2024 ANIONGAP 9.0 11/19/2024 No results found for: TSH No results found for: CHOL , CHLPL No results found for: TRIG No results found for: HDL No results found for: LDL , LDLDIRECT Lab Results Component Value Date WBC 13.52 (H) 11/19/2024 HGB 15.9 11/19/2024 HCT 48.2 11/19/2024 MCV 100.0 (H) 11/19/2024 PLT 184 11/19/2024 No results found for: TSH Assessment and Plan {CC Problem List Visit Diagnosis ROS Review (Popup) Health Maintenance Quality BestPractice Medications SmartSets SnapShot Encounters Media :23} 1. PAF (paroxysmal atrial fibrillation) Status post PVA Discussed postprocedural expectations and management Groin site is stable. No concerning hematoma or signs of infection. - ECG 12 Lead; sinus bradycardia with PACs 54 bpm Currently on metoprolol, Eliquis Diltiazem recently discontinued due to bradycardia 2. Typical atrial flutter - ECG 12 Lead; Future 3. Essential hypertension Blood pressure controlled on metoprolol, lisinopril for age. 4. Obstructive sleep apnea syndrome Compliant 5. Obesity (BMI 30.0-34.9) Body mass index is 30.79 kg/m??. Diet and exercise modifications to maintain healthy weight 6. Bradycardia Patient is bradycardic on metoprolol XL 200 mg twice a day. Discussed decreasing the metoprolol. Patient leery to decrease medication. Tried to decrease recently with elevated blood pressure. He is asymptomatic. Diltiazem recently discontinued. Urged patient to continue home blood pressure monitoring. Report if heart rate consistently less than 50 bpm. Report worsening dizziness, near-syncope, syncope, dyspnea, chest pain or pressure. - ECG 12 Lead; Future Patient will follow-up with cardiology as scheduled. Follow-up in the heart valve center as needed. Follow Up {Instructions Charge Capture Follow-up Communications :23} Return if symptoms worsen or fail to improve. Patient was given instructions and counseling regarding his condition or for health maintenance advice. Please see specific information pulled into the AVS if appropriate. Patient was instructed to call the Heart and Valve Center with any questions, concerns, or worsening symptoms. documented in this encounter Plan of Treatment Upcoming Encounters Date Type Department Care Team (Late st Contact Info) Description 02/28/2025 11:00 AM EST Office Visit [facility] [address] [facility] [address] [place] [address] Mark Guerra DO [address] [place] [address] 06/06/2025 10:30 AM EST Office Visit [facility] [address] [place] [address] Kirby Stack PA [address] [place] [address] 12/05/2025 11:30 AM EDT Office Visit [facility] [address] [place] [address] Mark Guerra DO [address] [place] [address] documented as of this encounter Results * ECG 12 Lead (12/09/2024 12:56 PM EDT) QT Interval 400 ms ECG QTC Interval 379 ms ECG 12/09/2024 12:5 6 PM EDT 12/09/2024 3:08 PM EDT Narrative ECG - 12/09/2024 3:08 PM EDT Test Reason : bradycardia Blood Pressure : */* mmHG Vent. Rate : 54 BPM Atrial Rate : 54 BPM P-R Int : 184 ms QRS Dur : 120 ms QT Int : 400 ms P-R-T Axes : 99 -15 92 degrees QTcB Int : 379 ms Sinus bradycardia with premature supraventricular complexes Low voltage QRS Right bundle branch block Abnormal ECG When compared with ECG of 25-Nov-2024 15:22, Non-specific change in ST segment in Anterior leads Nonspecific T wave abnormality, worse in Anterolateral leads QT has shortened Confirmed by SARAH HARDIN MD ([id number]) on 12/09/2024 3:08:54 PM Referred By: ANNIE SIMEON Confirmed By: SARAH HARDIN MD Procedure Note Sarah Hardin MD - 12/09/2024 Test Reason : bradycardia Blood Pressure : */* mmHG Vent. Rate : 54 BPM Atrial Rate : 54 BPM P-R Int : 184 ms QRS Dur : 120 ms QT Int : 400 ms P-R-T Axes : 99 -15 92 degrees QTcB Int : 379 ms Sinus bradycardia with premature supraventricular complexes Low voltage QRS Right bundle branch block Abnormal ECG When compared with ECG of 25-Nov-2024 15:22, Non-specific change in ST segment in Anterior leads Nonspecific T wave abnormality, worse in Anterolateral leads QT has shortened Confirmed by SARAH HARDIN MD ([id number]) on 12/09/2024 3:08:54 PM Referred By: ANNIE SIMEON Confirmed By: SARAH HARDIN MD us Demetrice Simeon APRN ECG ORDERABLES Final Resul t ECG documented in this encounter Visit Diagnoses Diagnosis PAF (paroxysmal atrial fibrillation)- Primary Atrial fibrillation Typical atrial flutter Essential hypertension Unspecified essential hypertension Obstructive sleep apnea syndrome Obstructive sleep apnea (adult) (pediatric) Obesity (BMI 30.0-34.9) Bradycardia Other specified cardiac dysrhythmias PAF (paroxysmal atrial fibrillation) Atrial fibrillation Typical atrial flutter Bradycardia Other specified cardiac dysrhythmias documented in this encounter Care Teams Rack Cleaner Relationship Specialty Start Date End Date Otilio Menendez MD [address] [place] [address] PCP - General Family Medicine 10/29/22 documented as of this encounter
--- OUTSIDE RECORDS SUMMARY | 2024-12-09 12:47 | XMS_ITS | Encounter Summary ---
[facility] Address [address] [place] [address] Care Team Providers Care Stunt Man Name Role Phone Otilio Menendez MD Primary Care Provider +1- [phone] Encounter Details Date Type Department Care Team (Latest Contact Info) Description 12/09/2024 12:47 PM EDT - 12/09/2024 11:59 PM EDT Hospital Encounter [facility] [address] [place] [address] [address] [place] [address] PAF (paroxysmal atrial fibrillation); Typical atrial flutter; Bradycardia Discharge Disposition: Home or Self Care Social History Tobacco Use Types Packs/Day Years Used Date Smoking Tobacco: Every Day Cigarettes 1.5 62.7 Started: 1963 Passive Smoke Exposure: Current Smokeless Tobacco: Never Alcohol Use Standard Drinks/Week Comments Not Currently 0 (1 standard drink = 0.6 oz pur e alcohol) [facility] Utilities Answer Date Recorded In the past 12 months has [employer], [employer], oil, or water [employer] threatened to shut off services in your [...] GED or equivalent No 11/19/2024 Preferred Language Czech 11/19/2024 Sex and Gender Information Value Date [...] Description 02/28/2025 11:00 AM EST Office Visit [facility] [address] [place] [address] Mark Guerra DO [address] [place] [address] 06/06/2025 10:30 AM EST Office Visit [facility] [address] [place] [address] Kirby Stack PA [address] [place], [place] [address] 12/05/2025 11:30 AM EDT Office Visit [facility] [address] [place] [address] Mark Guerra DO [address] [place] [address] documented as of this encounter [...] dysrhythmias documented in this encounter Care Teams Stunt Man Relationship Specialty Start Date End Date Otilio Menendez MD [address] [place] [address] PCP - General Family Medicine 10/29/22 documented as of this encounter
--- OUTSIDE RECORDS SUMMARY | 2024-12-28 10:04 | XMS_ITS | Encounter Summary ---
Author Organization [facility] Address [address] [place] [address] Care Team Providers Care Local Az Truck Driver Name Role Phone Otilio Menendez MD Primary Care Provider +1- [phone] Encounter Details Date Type Department Care Team (Latest Contact Info) Description 11/25/2024 Travel Social History Tobacco Use Types Packs/Day Years Used Date Smoking Tobacco: Every Day Cigarettes 1.5 62.7 Started: 1963 Passive Smoke Exposure: Current Smokeless Tobacco: Never Alcohol Use Standard Drinks/Week Comments Not Currently 0 (1 standard drink = 0.6 oz pur e alcohol) [facility] Utilities Answer Date Recorded In the past 12 months has [employer], gas, oil, or water [employer] threatened to shut off services in your [...] GED or equivalent No 11/19/2024 Preferred Language Swedish 11/19/2024 Sex and Gender Information Value Date Recorded Sex Assigned at Not on file Legal Sex Male 11:07 AM EDT Gender Identity Not on file Sexual Orientation Not on file documented as of this encounter Functional Status * Question Answer Date of Assessment Author 1. Wish to be (Past 1 Month) No 025 8:50 AM EDT Abby Bernard, RN 2. Non-Specific Active Suici delores Thoughts (Past 1 Month) No 11/25/2024 8:50 AM EDT Abby Bernard RN * Calculated C-SSRS Risk Score (Lifetime/Recent) Answer Date of Assessment Author No Risk Indicated 11/25/2024 8:50 AM EDT Abby Bernard RN * [place] Suicide Severity Rating Scale (Screener/Recent Self-Report) Question Answer Date of Assessment Author 6. Suicidal Behavior (Lifetime) No 8:50 AM EDT Abby Bernard RN documented as of this encounter Plan of Treatment Upcoming Encounters Date Type Department Care Team (Late st Contact Info) Description 02/28/2025 11:00 AM EST Office Visit [facility] [address] [facility] [address] [place] [address] Mark Guerra, DO [address] [place], [place] [address] 06/06/2025 10:30 AM EST Office Visit [facility] [address] [facility] [address] [place] [address] Kirby Stack PA [address] [place] [address] 12/05/2025 11:30 AM EDT Office Visit [facility] [address] [facility] [address] [place] [address] Mark Guerra, DO [address] [place] [address] documented as of this encounter Visit Diagnoses Not on filedocumented in this encounter Care Teams Local Az Truck Driver Relationship Specialty Start Date End Date Otilio Menendez MD [address] [place] [address] PCP - General Family Medicine 10/29/22 documented as of this encounter
--- OUTSIDE RECORDS SUMMARY | 2024-12-28 10:04 | XMS_ITS | Encounter Summary ---
Author Organization [facility] Address [address] [place] [address] Care Team Providers Care Professional Development Director Name Role Phone Otilio Menendez MD Primary Care Provider +1- [phone] Encounter Details Date Type Department Care Team (Latest Contact Info) Description 11/19/2024 Travel Social History Tobacco Use Types Packs/Day Years Used Date Smoking Tobacco: Every Day Cigarettes 1.5 62.7 Started: 1963 Passive Smoke Exposure: Current Smokeless Tobacco: Never Alcohol Use Standard Drinks/Week Comments Not Currently 0 (1 standard drink = 0.6 oz pur e alcohol) [facility] [place] [facility] Utilities Answer Date Recorded In the past 12 months has [employer], gas, oil, or water [employer] threatened to shut off services in your [...] GED or equivalent No 11/19/2024 Preferred Language Gabonese 11/19/2024 Sex and Gender Information Value Date Recorded Sex Assigned at Not on file Legal Sex Male 11:07 AM EDT Gender Identity Not on file Sexual Orientation Not on file documented as of this encounter Plan of Treatment Upcoming Encounters Date Type Department Care Team (Late st Contact Info) Description 02/28/2025 11:00 AM EST Office Visit [facility] [address] [place] [address] Mark Guerra, DO [address] [place] [address] 06/06/2025 10:30 AM EST Office Visit [facility] [address] [facility] [address] [place] [address] Kirby Stack PA [address] [place], [place] [address] 12/05/2025 11:30 AM EDT Office Visit [facility] [address] [facility] [address] [place] [address] Mark Guerra DO [address] [facility] [address] [place] [address] documented as of this encounter Visit Diagnoses Not on filedocumented in this encounter Care Teams Professional Development Director Relationship Specialty Start Date End Date Otilio Menendez MD [address] [place] [address] PCP - General Family Medicine 10/29/22 documented as of this encounter
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
--- OUTSIDE RECORDS SUMMARY | 2024-12-28 10:04 | XMS_ITS ---
Author Organization [facility] Address [address] [place] [address] Care Team Providers Care Family Resource Management Professor Name Role Phone Otilio Menendez MD Primary Care Provider +1- [phone] Active Problems Problem Noted Date Diagnosed Date Persistent atrial fibrillation 11/25/2024 Symptomatic cholelithiasis 08/23/2024 Tobacco use 08/23/2024 PAF (paroxysmal atrial fibrillation) 02/09/2024 Atrial flutter 02/04/2024 Liver cirrhosis 02/04/2024 CKD (chronic kidney disease) stage 3, GFR 30-59 ml/min 02/04/2024 COPD (chronic obstructive pulmonary disease) 04/2023 Diabetes type 2, controlled 08/06/2023 Renal insufficiency 08/06/2023 GERD (gastroesophageal reflux disease) Mild aortic valve sclerosis 08/06/2023 Qiu's esophagus 12/11/2022 Colorectal polyps 12/11/2022 Hiatal hernia 12/11/2022 Hx of adenomatous polyp of colon 12/11/2022 Sigmoid diverticulosis 12/11/2022 Sleep apnea 12/11/2022 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 Past Treatment and Therapy Plans No past plan information found. Lifetime Dose Tracking * Chemical Lifetime Dose Automatic Entry Manual Entr y Cumulative Air Kerma 14 mGy 0 mGy 14 mGy Resolved Problems Problem Noted Date Diagnosed Date Resolved Date Torn Achilles tendon 08/06/2023 024 Gastritis 12/11/2022 02/04/2024
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
--- OUTSIDE RECORDS SUMMARY | 2024-12-28 10:05 | XMS_ITS | Encounter Summary ---
[facility] Address [address] [place] [address] Care Team Providers Care Route Jumper Name Role Phone Otilio Menendez MD Primary Care Provider +1- [phone] Encounter Details Date Type Department Care Team ([facility] st Contact Info) Description 12/03/2024 Telephone [facility] [address] [facility] [address] [place] [address] Donya Davies APRN [address] [facility] [address] [place] [address] Social History Tobacco Use Types Packs/Day Years Used Date Smoking Tobacco: Every Day Cigarettes 1.5 62.7 Started: 1963 Passive Smoke Exposure: Current Smokeless Tobacco: Never Alcohol Use Standard Drinks/Week Comments Not Currently 0 (1 standard drink = 0.6 oz pur e alcohol) [facility] Utilities Answer Date Recorded In the past 12 months has [employer], gas, oil, or water [employer] threatened to shut off services in your [...] GED or equivalent No 11/19/2024 Preferred Language Sierra Leonean 11/19/2024 Sex and Gender Information Value Date Recorded Sex Assigned at Not on file Legal Sex Male 11:07 AM EDT Gender Identity Not on file Sexual Orientation Not on file documented as of this encounter Miscellaneous Notes * Telephone Encounter - Anabell Escobar, RN - 12/03/2024 10:50 AM EDT CoverMyMeds entered 12/03/2024 Toprol XL 200mg ER tablets Liu [id number] documented in this encounter Plan of Treatment Upcoming Encounters Date Type Department Care Team (Late st Contact Info) Description 02/28/2025 11:00 AM EST Office Visit [facility] [address] [facility] [place] [address] Mark Guerra, DO [address] [place] [address] 06/06/2025 10:30 AM EST Office Visit [facility] [address] [facility] [address] [place] [address] Kirby Stack PA [address] [place] [address] 12/05/2025 11:30 AM EDT Office Visit [facility] [address] [facility] [address] [place] [address] Mark Guerra, DO [address] [place] [address] documented as of this encounter Visit Diagnoses Not on filedocumented in this encounter Care Teams Route Jumper Relationship Specialty Start Date End Date Otilio Menendez MD [address] [place] [address] [place] [address] PCP - General Family Medicine 10/29/22 documented as of this encounter
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
--- OUTSIDE RECORDS SUMMARY | 2024-12-28 10:05 | XMS_ITS | Encounter Summary ---
[facility] Address [address] [place] [address] Care Team Providers Care Precision Dyer Name Role Phone Otilio Menendez MD Primary Care Provider +1- [phone] Reason for Visit * Reason Onset Date Comments PCI/Device 11/26/2024 Encounter Details Date Type Department Care Team ([facility] Contact Info) Description 11/26/2024 Call Center Programs [facility] [address] [place] [address] Sue Harrell RN Social History Tobacco Use Types Packs/Day Years Used Date Smoking Tobacco: Every Day Cigarettes 1.5 62.7 Started: 1963 Passive Smoke Exposure: Current Smokeless Tobacco: Never Alcohol Use Standard Drinks/Week Comments Not Currently 0 (1 standard drink = 0.6 oz pur e alcohol) [facility] Utilities Answer Date Recorded In the past 12 months has [email or web address], gas, oil, or water [employer] threatened to shut off services in your [...] GED or equivalent No 11/19/2024 Preferred Language Austrian 11/19/2024 Sex and Gender Information Value Date Recorded Sex Assigned at Not on file Legal Sex Male 11:07 AM EDT Gender Identity Not on file Sexual Orientation Not on file documented as of this encounter Miscellaneous Notes * Outreach Note - Sue Harrell RN - 11/26/2024 10:30 AM EDT PCI/Device Survey Flowsheet Row Responses Facility patient discharged from? [facility] Procedure date 11/25/24 Procedure (if device, specify in description) Ablation Performing MD Dr. Mark Guerra Attempt successful? No Unsuccessful attempts Attempt 1 Sue Mcmullen - Registered Nurse documented in this encounter Plan of Treatment Upcoming Encounters Date Type Department Care Team (Late st Contact Info) Description 02/28/2025 11:00 AM EST Office Visit [facility] [address] [facility] [address] [place] [address] Mark Guerra, [address] [place] [address] 06/06/2025 10:30 AM EST Office Visit [facility] [address] [facility] [address] [place] [address] Kirby Stack PA [address] [place] [address] 12/05/2025 11:30 AM EDT Office Visit [facility] [address] [facility] [address] [place] [address] Mark Guerra DO [address] [place] [address] documented as of this encounter Visit Diagnoses Not on filedocumented in this encounter Care Teams Precision Dyer Relationship Specialty Start Date End Date Otilio Menendez MD [address] [place] [address] PCP - General Family Medicine 10/29/22 documented as of this encounter
--- OUTSIDE RECORDS SUMMARY | 2024-12-28 10:05 | XMS_ITS | Encounter Summary ---
[facility] Organization [facility] Address [address] [place] [address] Care Team Providers Care Environmental Maintenance Worker Name Role Phone Otilio Menendez MD Primary Care Provider +1- [phone] Reason for Visit * Reason Onset Date Comments PCI/Device 11/26/2024 Encounter Details Date Type Department [facility] Team ([facility] Contact Info[facility] Description 11/26/2024 Call Center Programs [facility] [address] [place] [address] Sue Harrell RN Social History Tobacco Use Types Packs/Day Years Used Date Smoking Tobacco: Every Day Cigarettes 1.5 62.7 Started: 1963 Passive Smoke Exposure: Current Smokeless Tobacco: Never Alcohol Use Standard Drinks/Week Comments Not Currently 0 (1 standard drink = 0.6 oz pur e alcohol) [facility] Utilities Answer Date Recorded In the past 12 months has [employer], gas, oil, or water [employer] threatened to shut off services in your [...] Note - Sue Harrell RN - 11/26/2024 1:38 PM EDT Images from the original note were not included. PCI/Device Survey Flowsheet Row Responses Facility patient discharged from? [facility] Procedure date 11/25/24 Procedure (if device, specify in description) Ablation Performing MD Dr. Mark Guerra Attempt successful? Yes [VR lists Shaylee, Roberth or Tresa] Call start time 1339 Call end time 1344 Is the patient taking prescribed medications: Prasurgrel, Apixaban Nursing intervention Reminded to continue to take prescribed medications, Nurse provided patient education Does the patient have any of the following symptoms related to the cath/surgical site? -- [Pt reports dressing old blood present that has saturated current dsg, pt contacted office. Pt states that there is no active bleeding currently at the Right groin.] Nursing intervention Patient education provided Does the patient have an appointment scheduled with the wood carver? Yes If the patient is a current smoker, are they able to teach back resources for cessation? -- [Pt smokes 1pk/day] Did the patient feel prepared to go home on the same day as the procedure? Yes Is the patient satisfied with the same day discharge process? Yes PCI/Device call completed Yes Sue Mcmullen - Registered Nurse documented in this encounter Plan of Treatment Upcoming Encounters Date Type Department Care Team (Late st Contact Info) Description 02/28/2025 11:00 AM EST Office Visit [facility] [address] [facility] [address] [place] [address] Mark Guerra DO [address] [facility] [address] [place] [address] 06/06/2025 10:30 AM EST Office Visit [facility] [address] [facility] [address] [place] [address] Kirby Stack PA [address] [facility] [address] [place] [address] 12/05/2025 11:30 AM EDT Office Visit [facility] [address] [place] [address] Mark Guerra DO [address] [place] [address] documented as of this encounter Visit Diagnoses Not on filedocumented in this encounter Care Teams Environmental Maintenance Worker Relationship Specialty Start Date End Date Otilio Menendez MD [address] [place] [address] [place] [address] PCP - General Family Medicine 10/29/22 documented as of this encounter
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
--- OUTSIDE RECORDS SUMMARY | 2024-12-28 10:05 | XMS_ITS | Encounter Summary ---
Author Organization [facility] Address [address] [place] [address] Care Team Providers Care Cst Name Role Phone Otilio Menendez MD Primary Care Provider +1- [phone] Encounter Details Date Type Department Care Team (Latest Contact Info) Description 12/09/2024 Travel Social History Tobacco Use Types Packs/Day Years Used Date Smoking Tobacco: Every Day Cigarettes 1.5 62.7 Started: 1963 Passive Smoke Exposure: Current Smokeless Tobacco: Never Alcohol Use Standard Drinks/Week Comments Not Currently 0 (1 standard drink = 0.6 oz pur e alcohol) [facility] Utilities Answer Date Recorded In the past 12 months has [employer], gas, oil, or water [employer] threatened to shut off services in your [...] GED or equivalent No 11/19/[address] [place] 11/19/2024 Sex and Gender Information Value Date Recorded Sex Assigned at Not on file Legal Sex Male 11:07 AM EDT Gender Identity Not on file Sexual Orientation Not on file documented as of this encounter Plan of Treatment Upcoming Encounters Date Type Department Care Team (Late st Contact Info) Description 02/28/2025 11:00 AM EST Office Visit [facility] CARDIOLOGY [address] [place] [address] Mark Guerra, DO [address] [place] [address] 06/06/2025 10:30 AM EST Office Visit [facility] [address] [facility] [address] [place] [address] Kirby Stack PA [address] [place], [place] [address] 12/05/2025 11:30 AM EDT Office Visit [facility] [address] [facility] [address] [place] [address] Mark Guerra DO [address] [facility] [address] [place] [address] documented as of this encounter Visit Diagnoses Not on filedocumented in this encounter Care Teams Cst Relationship Specialty Start Date End Date Otilio Menendez MD [address] [place] [address] PCP - General Family Medicine 10/29/22 documented as of this encounter
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
[2024-12-28 10:09] LABS: Hematocrit 45.8 % (42.0-52.0); Hemoglobin 14.7 g/dL (14.1-18.0); Immature Granulocytes % 0.4 %; Mean Corpuscular HGB Conc 32.1 g/dL (31.8-35.4); Mean Corpuscular Hemoglobin 32.8 pg (27.0-31.2); Mean Corpuscular Volume 102.2 fl (80-94); Nucleated Red Blood Cells % 0 %; Platelet Count 190 K/mm3 (142-424); Red Blood Count 4.48 M/mm3 (4.60-6.20); Red Cell Distribution Width-SD 51.2 fL; White Blood Count 12.1 K/mm3 (4.8-10.8)
[2024-12-28 10:19] LABS: INR 1.02 (0.9-1.1); Prothrombin Time 11.3 seconds (10.1-12.5)
[2024-12-28 10:27] LABS: Ammonia 9 umol/L (9-30)
[2024-12-28 10:44] LABS: Albumin Level 4.3 g/dl (3.5-5.0); Chloride 105 mmol/L (98-107); Potassium 5.0 mmoL/L (3.5-5.1); Sodium 140 mmol/L (136-145)
[2024-12-28 10:47] LABS: Alanine Aminotransferase 20 U/L (12-78); Albumin/Globulin Ratio 1.7 (1.1-1.8); Alkaline Phosphatase 82 U/L (38-126); Anion Gap 12.0 mEq/L (5-15); Aspartate Amino Transferase 36 U/L (17-59); Bilirubin,Total 1.1 mg/dl (0.2-1.3); Blood Urea Nitrogen 27 mg/dl (9-20); Carbon Dioxide 28 mmol/L (22.0-30.0); Creatinine,Serum 1.80 mg/dl (0.66-1.25); Estimated Glomerular Filt Rate 37 ml/min (>60); GFR (African American) 45 ML/MIN (>60); Globulin 2.5 g/dL (1.3-3.2); Iron 102 ug/dL (49-181); Total Protein,Serum 6.8 g/dl (6.3-8.2)
[2024-12-28 10:48] LABS: Calcium 9.1 mg/dl (8.4-10.2); Glucose 112 mg/dl (74-100)
[2024-12-28 10:57] LABS: Total Iron Binding Capacity 397 ug/dL (261-462)
[2024-12-28 11:23] LABS: Ferritin 21.4 ng/ml (17.9-464)
== END 2024-12-28 23:59 | disposition home or self-care (01) ==
LOC: LAB 09:51
PROVIDERS: PCP Family Medicine; Visit Provider Nurse Practitioner Family
DX: K74.60 Unspecified cirrhosis of liver (principal)
CPT/HCPCS: 36415; 80053; 82105; 82140; 82728; 83540; 83550; 85025; 85610

== ENCOUNTER 2024-12-31 07:15 | Outpatient (CLI) | payer MEDICARE, BC, SELFPAY ==
--- OUTSIDE RECORDS SUMMARY | 2024-12-31 07:18 | XMS_ITS | Data Portability ---
Author Organization [facility] LEA Miranda SCIO CLOSED Address [address] [place] [address] Care Team Providers Care Pile Driver Name Role Phone LUZMA ELLIOTT Primary Care Provider [phone] Assessment Encounter Date Assessment Date Assessment LastModified by Organization Details LastModified Time 03/16/2020 03/16/2020 PSA order provided. Patient is doing well. [email or web address] Not available 03/19/2020 18:08:52 03/08/2021 03/08/2021 Order provided for PSA. 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 [email or web address] Not available 03/09/2021 06:59:21 03/14/2022 03/14/2022 Order provided for PSA. 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 Urine for culture and sensitivity. 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 Order provided for PSA. Monitor PSA trend. [email or web address] Not available 03/23/2023 11:00:59 04/01/2024 04/01/2024 Continue to monitor PSA trend and lower urinary symptoms. [email or web address] Not available 04/02/2024 10:41:03 Plan of Treatment Reminders Order Date Submit Date Provider Last Modified By Organization Details Last Modified Time Details Appointments RECHECK 2025 01:00P Carlota MCDERMOTT MD Not available Not available Not available Lab urinalysi s panel, auto 2023 024 [email or web address] 4 [facility], [address], [address], [place], [address], 04/02/2024 10:41:03 urinalysi s panel, auto 2022 023 [email or web address] 4 [facility], [address], [address], [place], [address], 03/23/2023 11:01:02 urinalysi s panel, auto 2021 022 [email or web address] 4 [facility], [address], [address], [place], [address], 03/19/2022 08:32:27 culture, urine 2021 022 [email or web address] 4 [facility], [address] [place] [address], [address], 03/19/2022 08:32:27 urinalysi s panel, auto 2020 021 [email or web address] 4 [facility], [address], [address], [place], [address], 03/09/2021 06:59:22 urinalysi s panel, auto 2019 020 [email or web address] 4 [facility], [address], [address], [place], [address], 03/19/2020 18:08:53 Referral None recorded. Procedures None recorded. Surgeries None recorded. Imaging None recorded. Medication Orders None recorded. Patient TargetsNo targets recorded. Patient Instructions Encounter Date Encounter Id Patient Instructions Last Modified By Organization Details Last Modified Time 03/14/2022 [id number] learning about healthy weight [email or web address] Not available 03/19/2022 08:32:27 03/20/2023 [id number] learning about healthy weight Not available 03/23/2023 11:01:00 Reason for Referral None Reported. Results Created Date Observation Date Name Description Value Unit Range Abnormal Flag Note LastModifiedBy Organization Detail LastModifiedTime 03/16/20 20 03/16/2020 urina lysis panel , auto Unknown Analyte Clean Catch Not Available [facility] With [facility] [address], [place], [address], 03/16/2020 13:26:31 03/16/20 20 03/16/2020 urina lysis panel , auto Unknown Analyte Yellow Not Available [facility] With [address], [place], [address], 03/16/2020 13:26:31 03/16/20 20 03/16/2020 urina lysis panel , auto Unknown Analyte Clear Not Available [facility] With [address], [place], [address], 03/16/2020 13:26:31 03/16/20 20 03/16/2020 urina lysis panel , auto Unknown Analyte 1.020 Not Available [facility] With [facility] [address], [place], [address], 03/16/2020 13:26:31 03/16/20 20 03/16/2020 urina lysis panel , auto Unknown Analyte 1.003- 1.035 Not Available [facility] [place] [address], [place], [address], 03/16/2020 13:26:31 03/16/20 20 03/16/2020 urina lysis panel , auto Unknown Analyte 5.0 Not Available [facility] With [place] [address], [place], [address], 03/16/2020 13:26:31 03/16/20 20 03/16/2020 urina lysis panel , auto Unknown Analyte 5.0-8. 0 Not Available [facility] [address], [place], [address], 03/16/2020 13:26:31 03/16/20 20 03/16/2020 urina lysis panel , auto Unknown Analyte Negati ve Not Available [facility] With [address], [place], [address], 03/16/2020 13:26:31 03/16/20 20 03/16/2020 urina lysis panel , auto Unknown Analyte Negati ve Not Available [facility] With [address], [place], [address], 03/16/2020 13:26:31 03/16/20 20 03/16/2020 urina lysis panel , auto Unknown Analyte Negati ve Not Available [facility] With [address], [place], [address], 03/16/2020 13:26:31 03/16/20 20 03/16/2020 urina lysis panel , auto Unknown Analyte Negati ve Not Available [facility] With [address], [place], [address], 03/16/2020 13:26:31 03/16/20 20 03/16/2020 urina lysis panel , auto Unknown Analyte Negati ve Not Available [facility] With [address], [place], [address], 03/16/2020 13:26:31 03/16/20 20 03/16/2020 urina lysis panel , auto Unknown Analyte Negati ve Not Available [facility] [place] [address], [place], [address], 03/16/2020 13:26:31 03/16/20 20 03/16/2020 urina lysis panel , auto Unknown Analyte Normal Not Available [facility] [place] [facility] [address], [place], [address], 03/16/2020 13:26:31 03/16/20 20 03/16/2020 urina lysis panel , auto Unknown Analyte Normal Not Available [facility] With [address], [place], [address], 03/16/2020 13:26:31 03/16/20 20 03/16/2020 urina lysis panel , auto Unknown Analyte Negati ve Not Available [facility] With [address], [place], [address], 03/16/2020 13:26:31 03/16/20 20 03/16/2020 urina lysis panel , auto Unknown Analyte Negati ve Not Available [facility] With [address], [place], [address], 03/16/2020 13:26:31 03/16/20 20 03/16/2020 urina lysis panel , auto Unknown Analyte Normal Not Available [facility] With [address], [place], [address], 03/16/2020 13:26:31 03/16/20 20 03/16/2020 urina lysis panel , auto Unknown Analyte Normal 1 mg/dl Not Available [facility] [address], [place], [address], 03/16/2020 13:26:31 03/16/20 20 03/16/2020 urina lysis panel , auto Unknown Analyte Negati ve Not Available [facility] [address], [place], [address], 03/16/2020 13:26:31 03/16/20 20 03/16/2020 urina lysis panel , auto Unknown Analyte Negati ve Not Available [facility] [address], [place], [address], 03/16/2020 13:26:31 03/16/20 20 03/16/2020 urina lysis panel , auto Unknown Analyte Negati ve Not Available [facility] With [address], [place], [address], 03/16/2020 13:26:31 03/16/20 20 03/16/2020 urina lysis panel , auto Unknown Analyte Negati ve Not Available [facility] With [address], [place], [address], 03/16/2020 13:26:31 03/08/20 21 03/08/2021 urina lysis panel , auto Unknown Analyte Clean Catch Not Available [facility] [address], [place], [address], 03/08/2021 16:15:00 03/08/20 21 03/08/2021 urina lysis panel , auto Unknown Analyte Yellow Not Available [facility] With [address], [place], [address], 03/08/2021 16:15:00 03/08/20 21 03/08/2021 urina lysis panel , auto Unknown Analyte Clear Not Available [facility] With [address], [place], [address], 03/08/2021 16:15:00 03/08/20 21 03/08/2021 urina lysis panel , auto Unknown Analyte 1.015 Not Available [facility] With [address], [place], [address], 03/08/2021 16:15:00 03/08/20 21 03/08/2021 urina lysis panel , auto Unknown Analyte 1.003- 1.035 Not Available [facility] With [address], [place], [address], 03/08/2021 16:15:00 03/08/20 21 03/08/2021 urina lysis panel , auto Unknown Analyte 5.0 Not Available [facility] With [address], [place], [address], 03/08/2021 16:15:00 03/08/20 21 03/08/2021 urina lysis panel , auto Unknown Analyte 5.0-8. 0 Not Available [facility] With [address], [place], [address], 03/08/2021 16:15:00 03/08/20 21 03/08/2021 urina lysis panel , auto Unknown Analyte Negati ve Not Available [facility] [address], [place], [address], 03/08/2021 16:15:00 03/08/20 21 03/08/2021 urina lysis panel , auto Unknown Analyte Negati ve Not Available [facility] [address], [place], [address], 03/08/2021 16:15:00 03/08/20 21 03/08/2021 urina lysis panel , auto Unknown Analyte Negati ve Not Available [facility] [address], [place], [address], 03/08/2021 16:15:00 03/08/20 21 03/08/2021 urina lysis panel , auto Unknown Analyte Negati ve Not Available [facility] [address], [place], [address], 03/08/2021 16:15:00 03/08/20 21 03/08/2021 urina lysis panel , auto Unknown Analyte Negati ve Not Available [facility] [address], [place], [address], 03/08/2021 16:15:00 03/08/20 21 03/08/2021 urina lysis panel , auto Unknown Analyte Negati ve Not Available [facility] [address], [place], [address], 03/08/2021 16:15:00 03/08/20 21 03/08/2021 urina lysis panel , auto Unknown Analyte 250 mg/dl Not Available [facility] [address], [place], [address], 03/08/2021 16:15:00 03/08/20 21 03/08/2021 urina lysis panel , auto Unknown Analyte Normal Not Available [facility] With [address], [place], [address], 03/08/2021 16:15:00 03/08/20 21 03/08/2021 urina lysis panel , auto Unknown Analyte Negati ve Not Available [facility] [place] [address], [place], [address], 03/08/2021 16:15:00 03/08/20 21 03/08/2021 urina lysis panel , auto Unknown Analyte Negati ve Not Available [facility] [place] [address], [place], [address], 03/08/2021 16:15:00 03/08/20 21 03/08/2021 urina lysis panel , auto Unknown Analyte Normal Not Available [facility] With [facility] [address], [place], [address], 03/08/2021 16:15:00 03/08/20 21 03/08/2021 urina lysis panel , auto Unknown Analyte Normal 1 mg/dl Not Available [facility] [address], [place], [address], 03/08/2021 16:15:00 03/08/20 21 03/08/2021 urina lysis panel , auto Unknown Analyte Negati ve Not Available [facility] [address], [place], [address], 03/08/2021 16:15:00 03/08/20 21 03/08/2021 urina lysis panel , auto Unknown Analyte Negati ve Not Available [facility] [address], [place], [address], 03/08/2021 16:15:00 03/08/20 21 03/08/2021 urina lysis panel , auto Unknown Analyte Negati ve Not Available [facility] [address], [place], [address], 03/08/2021 16:15:00 03/08/20 21 03/08/2021 urina lysis panel , auto Unknown Analyte Negati ve Not Available [facility] [address], [place], [address], 03/08/2021 16:15:00 03/14/20 22 03/14/2022 URINE CULTU RE results Sour e: CCUR Colle cted: 03/14 13:42 Site: Recei clara : 03/14 19:41 URINE CULTU RE FINAL 03/16 12:05 03/16 No growt h day 2. Not Available [facility] [address] [facility], [place], [address], 03/16/2022 12:05:48 03/14/20 22 03/14/2022 urina lysis panel , auto Unknown Analyte Clean Catch Not Available [facility] [address], [place], [address], 03/14/2022 13:34:05 03/14/20 22 03/14/2022 urina lysis panel , auto Unknown Analyte Yellow Not Available [facility] With [address], [place], [address], 03/14/2022 13:34:05 03/14/20 22 03/14/2022 urina lysis panel , auto Unknown Analyte Clear Not Available [facility] [address], [place], [address], 03/14/2022 13:34:05 03/14/20 22 03/14/2022 urina lysis panel , auto Unknown Analyte 1.025 Not Available [facility] With [address], [place], [address], 03/14/2022 13:34:05 03/14/20 22 03/14/2022 urina lysis panel , auto Unknown Analyte 1.003- 1.035 Not Available [facility] [address], [place], [address], 03/14/2022 13:34:05 03/14/20 22 03/14/2022 urina lysis panel , auto Unknown Analyte 5.0 Not Available [facility] [address], [place], [address], 03/14/2022 13:34:05 03/14/20 22 03/14/2022 urina lysis panel , auto Unknown Analyte 5.0-8. 0 Not Available [facility] [place] [address], [place], [address], 03/14/2022 13:34:05 03/14/20 22 03/14/2022 urina lysis panel , auto Unknown Analyte Negati ve Not Available [facility] [address], [place], [address], 03/14/2022 13:34:05 03/14/20 22 03/14/2022 urina lysis panel , auto Unknown Analyte Negati ve Not Available [facility] [address], [place], [address], 03/14/2022 13:34:05 03/14/20 22 03/14/2022 urina lysis panel , auto Unknown Analyte Negati ve Not Available [facility] [place] [address], [place], [address], 03/14/2022 13:34:05 03/14/20 22 03/14/2022 urina lysis panel , auto Unknown Analyte Negati ve Not Available [facility] [place] [address], [place], [address], 03/14/2022 13:34:05 03/14/20 22 03/14/2022 urina lysis panel , auto Unknown Analyte 30 mg/dl (+) Not Available [facility] [address], [place], [address], 03/14/2022 13:34:05 03/14/20 22 03/14/2022 urina lysis panel , auto Unknown Analyte Negati ve Not Available [facility] [place] [address], [place], [address], 03/14/2022 13:34:05 03/14/20 22 03/14/2022 urina lysis panel , auto Unknown Analyte 100 mg/dl Not Available [facility] [place] [address], [place], [address], 03/14/2022 13:34:05 03/14/20 22 03/14/2022 urina lysis panel , auto Unknown Analyte Normal Not Available [facility] [address], [place], [address], 03/14/2022 13:34:05 03/14/20 22 03/14/2022 urina lysis panel , auto Unknown Analyte 15 mg/dl (Sm) Not Available [facility] [address], [place], [address], 03/14/2022 13:34:05 03/14/20 22 03/14/2022 urina lysis panel , auto Unknown Analyte Negati ve Not Available [facility] [address] [place] [address], [place], [address], 03/14/2022 13:34:05 03/14/20 22 03/14/2022 urina lysis panel , auto Unknown Analyte 1 mg/dl Not Available [facility] [address], [place], [address], 03/14/2022 13:34:05 03/14/20 22 03/14/2022 urina lysis panel , auto Unknown Analyte Normal 1 mg/dl Not Available [facility] [address], [place], [address], 03/14/2022 13:34:05 03/14/20 22 03/14/2022 urina lysis panel , auto Unknown Analyte Negati ve Not Available [facility] [place] [address], [place], [address], 03/14/2022 13:34:05 03/14/20 22 03/14/2022 urina lysis panel , auto Unknown Analyte Negati ve Not Available [facility] [address] [place] [address], [place], [address], 03/14/2022 13:34:05 03/14/20 22 03/14/2022 urina lysis panel , auto Unknown Analyte Negati ve Not Available [facility] [address], [place], [address], 03/14/2022 13:34:05 03/14/20 22 03/14/2022 urina lysis panel , auto Unknown Analyte Negati ve Not Available [facility] [address], [place], [address], 03/14/2022 13:34:05 03/20/20 23 03/20/2023 urina lysis panel , auto Unknown Analyte Clean Catch Not Available [facility] [address], [place], [address], 03/20/2023 14:05:32 03/20/20 23 03/20/2023 urina lysis panel , auto Unknown Analyte Yellow Not Available [facility] [address], [place], [address], 03/20/2023 14:05:32 03/20/20 23 03/20/2023 urina lysis panel , auto Unknown Analyte Clear Not Available [facility] [address], [place], [address], 03/20/2023 14:05:32 03/20/20 23 03/20/2023 urina lysis panel , auto Unknown Analyte 1.020 Not Available [facility] [address], [place], [address], 03/20/2023 14:05:32 03/20/20 23 03/20/2023 urina lysis panel , auto Unknown Analyte 1.003- 1.035 Not Available [facility] [place] [address], [place], [address], 03/20/2023 14:05:32 03/20/20 23 03/20/2023 urina lysis panel , auto Unknown Analyte 5.0 Not Available [facility] With [address], [place], [address], 03/20/2023 14:05:32 03/20/20 23 03/20/2023 urina lysis panel , auto Unknown Analyte 5.0-8. 0 Not Available [facility] [address], [place], [address], 03/20/2023 14:05:32 03/20/20 23 03/20/2023 urina lysis panel , auto Unknown Analyte Negati ve Not Available [facility] [address], [place], [address], 03/20/2023 14:05:32 03/20/20 23 03/20/2023 urina lysis panel , auto Unknown Analyte Negati ve Not Available [facility] [address], [place], [address], 03/20/2023 14:05:32 03/20/20 23 03/20/2023 urina lysis panel , auto Unknown Analyte Negati ve Not Available [facility] [address], [place], [address], 03/20/2023 14:05:32 03/20/20 23 03/20/2023 urina lysis panel , auto Unknown Analyte Negati ve Not Available [facility] [address], [place], [address], 03/20/2023 14:05:32 03/20/20 23 03/20/2023 urina lysis panel , auto Unknown Analyte 30 mg/dl (+) Not Available [facility] [address], [place], [address], 03/20/2023 14:05:32 03/20/20 23 03/20/2023 urina lysis panel , auto Unknown Analyte Negati ve Not Available [facility] [address], [place], [address], 03/20/2023 14:05:32 03/20/20 23 03/20/2023 urina lysis panel , auto Unknown Analyte Normal Not Available [facility] [address], [place], [address], 03/20/2023 14:05:32 03/20/20 23 03/20/2023 urina lysis panel , auto Unknown Analyte Normal Not Available [facility] [address], [place], [address], 03/20/2023 14:05:32 03/20/20 23 03/20/2023 urina lysis panel , auto Unknown Analyte 15 mg/dl (Sm) Not Available [facility] [address], [place], [address], 03/20/2023 14:05:32 03/20/20 23 03/20/2023 urina lysis panel , auto Unknown Analyte Negati ve Not Available [facility] [address], [place], [address], 03/20/2023 14:05:32 03/20/20 23 03/20/2023 urina lysis panel , auto Unknown Analyte Normal Not Available [facility] [address], [place], [address], 03/20/2023 14:05:32 03/20/20 23 03/20/2023 urina lysis panel , auto Unknown Analyte Normal 1 mg/dl Not Available [facility] [address], [place], [address], 03/20/2023 14:05:32 03/20/20 23 03/20/2023 urina lysis panel , auto Unknown Analyte Negati ve Not Available [facility] [address], [place], [address], 03/20/2023 14:05:32 03/20/20 23 03/20/2023 urina lysis panel , auto Unknown Analyte Negati ve Not Available [facility] [address], [place], [address], 03/20/2023 14:05:32 03/20/20 23 03/20/2023 urina lysis panel , auto Unknown Analyte Negati ve Not Available [facility] [address], [place], [address], 03/20/2023 14:05:32 03/20/20 23 03/20/2023 urina lysis panel , auto Unknown Analyte Negati ve Not Available [facility] [address], [place], [address], 03/20/2023 14:05:32 04/01/20 24 04/01/2024 urina lysis panel , auto Unknown Analyte Clean Catch Not Available [facility] [address], [place], [address], 04/01/2024 12:45:40 04/01/20 24 04/01/2024 urina lysis panel , auto Unknown Analyte Yellow Not Available [facility] [address], [place], [address], 04/01/2024 12:45:40 12/26/04/01/2024 urina lysis panel , auto Unknown Analyte Clear Not Available [facility] With [address] Rizo F, [place], [address], 04/01/2024 12:45:40 04/01/20 24 04/01/2024 urina lysis panel , auto Unknown Analyte 1.015 Not Available [facility] With [address] Darrius [address], [place], [address], 04/01/2024 12:45:40 04/01/20 24 04/01/2024 urina lysis panel , auto Unknown Analyte 1.003- 1.035 Not Available [facility] With [address], [place], [address], 04/01/2024 12:45:40 04/01/20 24 04/01/2024 urina lysis panel , auto Unknown Analyte 5.0 Not Available [facility] With [address] Darrius [place], [place], [address], 04/01/2024 12:45:40 04/01/20 24 04/01/2024 urina lysis panel , auto Unknown Analyte 5.0-8. 0 Not Available [facility] With [address], [place], [address], 04/01/2024 12:45:40 04/01/20 24 04/01/2024 urina lysis panel , auto Unknown Analyte Negati ve Not Available [facility] With [address], [place], [address], 04/01/2024 12:45:40 04/01/20 24 04/01/2024 urina lysis panel , auto Unknown Analyte Negati ve Not Available [facility] With [address], [place], [address], 04/01/2024 12:45:40 04/01/20 24 04/01/2024 urina lysis panel , auto Unknown Analyte Negati ve Not Available [facility] With [address], [place], [address], 04/01/2024 12:45:40 04/01/20 24 04/01/2024 urina lysis panel , auto Unknown Analyte Negati ve Not Available [facility] With [address], [place], [address], 04/01/2024 12:45:40 04/01/2004/01/2024 urina lysis panel , auto Unknown Analyte 100 mg/dl (++) Not Available [facility] With [address], [place], [address], 04/01/2024 12:45:40 04/01/20 24 04/01/2024 urina lysis panel , auto Unknown Analyte Negati ve Not Available [facility] With [address], [place], [address], 04/01/2024 12:45:40 04/01/20 24 04/01/2024 urina lysis panel , auto Unknown Analyte >1000 mg/dl Not Available [facility] With [address], [place], [address], 04/01/2024 12:45:40 04/01/20 24 04/01/2024 urina lysis panel , auto Unknown Analyte Normal Not Available [facility] With [place] [address], [place], [address], 04/01/2024 12:45:40 04/01/20 24 04/01/2024 urina lysis panel , auto Unknown Analyte Negati ve Not Available [facility] With [place] [address], [place], [address], 04/01/2024 12:45:40 04/01/20 24 04/01/2024 urina lysis panel , auto Unknown Analyte Negati ve Not Available [facility] With [address]rius [address], [place], [address], 04/01/2024 12:45:40 04/01/20 24 04/01/2024 urina lysis panel , auto Unknown Analyte Normal Not Available [facility] With [address]ri[address], [place], [address], 04/01/2024 12:45:40 04/01/2004/01/2024 urina lysis panel , auto Unknown Analyte Normal 1 mg/dl Not Available [facility] With [address]rius [address], [place], [address], 04/01/2024 12:45:40 04/01/20 24 04/01/2024 urina lysis panel , auto Unknown Analyte Negati ve Not Available [facility] With [address], [place], [address], 04/01/2024 12:45:40 04/01/20 24 04/01/2024 urina lysis panel , auto Unknown Analyte Negati ve Not Available [facility] With [address], [place], [address], 04/01/2024 12:45:40 04/01/20 24 04/01/2024 urina lysis panel , auto Unknown Analyte 50 Davis/ul Not Available [facility] With [address], [place], [address], 04/01/2024 12:45:40 04/01/20 24 04/01/2024 urina lysis panel , auto Unknown Analyte Negati ve Not Available [facility] With [address], [place], [address], 04/01/2024 12:45:40 Result Notes None recorded. Problems Name Problem SNOMED Code Status Onset Date Resolution Date Notes Provider Name and Address Organization Details Recorded Time Malignant neoplasm of prostate 776242933 Active 2014 Provide r: Jason Witt ;Status : Active Not Available [facility] 6 04:42:34 Problem Notes None recorded. Procedures Surgical History Date Name Laterality Status Provider Name and Address Organization Details Recorded Time Hernia Repair completed [facility] 03/11/2019 16:41:19 Prostate Surgery completed [facility] 03/11/2019 16:41:25 Imaging Results None recorded. Procedure Notes None recorded. Medical Equipment None Reported. Allergies Allergen ID Allergen Name Allergen Category Reaction Reaction Severity Criticality Documentation Date Start Date Code Code System Note Provider Name and Address Organization Details Recorded Time 307346 latex environme nt,medica tion Not available Not available Not available 03/11/2019 03371 91 [facility] 16:42:27 Medications Name Sig Start Date Stop Date Status Note LastModified by Organization Details LastModified Time Protonix 40 mg tablet,delay ed release Take 1 tablet every day by oral route. active Not Available Not Available No t Available glipizide 10 mg tablet Take 1 tablet every day by oral route. active Not Available Not Available No t Available Wellbutrin SR 150 mg tablet, 12 hr sustained-re lease Take 1 tablet twice a day by oral route. 03/20 completed Not Available Not Available Not Available Lotensin 40 mg tablet Take 1 tablet every day by oral route. active Not Available Not Available No t Available Zyrtec 10 mg tablet Take 1 tablet every day by oral route. 03/20 completed Not Available Not Available Not Available Toprol XL 200 mg tablet,exten ded release Take 1 tablet every day by oral route. 03/20 completed Not Available Not Available Not Available clonidine HCl 0.2 mg tablet Take 1 tablet twice a day by oral route. active Not Available Not Available No t Available hydrochlorot hiazide 25 mg tablet Take 1 tablet every day by oral route. active Not Available Not Available No t Available Lotrel 10 mg-20 mg capsule Take 1 capsule every day by oral route. 03/20 completed Not Available Not Available Not Available Asprin Ec Low Dose 81 mg tablet,delay ed release Take 1 tablet every day by oral route. active Not Available Not Available No t Available Crestor 10 mg tablet Take 1 tablet every day by oral route. active Not Available Not Available No t Available Colace active Not Available Not Availa ble Not Available Norvasc active Not Available Not Avail able Not Available potassium 03/20 completed Not Available Not Available Not Available Miralax active Not Available Not Avail able Not Available multivitamin active Not Available Not Available Not Available Janumet 50 mg-1,000 mg tablet Take 1 tablet twice a day by oral route. active Not Available Not Available No t Available omega 3 183.3 mg-dha 75 mg-epa 91.6 mg-fish oil 306 mg capsule Take by oral route. 03/20 completed Not Available Not Available Not Available Prodigen 31 billion cell capsule Take by oral route. 03/20 completed Not Available Not Available Not Available Rybelsus active Not Available Not Avai lable Not Available Vitals Date Recorded Body height Body mass index (BMI) Body weight Provider Name and Address Organization Details Last Updated DateTime 03/08/2021 182.88 cm 30.5 kg/m2 057003.28 g [facility] 03/08/2021 16:08:12 Date Recorded Body height Body mass index (BMI) Body weight Provider Name and Address Organization Details Last Updated DateTime 03/14/2022 182.88 cm 30.5 kg/m2 867306.28 g [facility] 03/14/2022 13:12:49 Date Recorded Body height Body mass index (BMI) Body weight Body temperature Provider Name and Address Organization Details Last Updated DateTime 03/16/2020 182.88 cm 30.5 kg/m2 076309.28 g 97.3 [degF] [facility] 03/16/2020 13:25:58 Date Recorded Body height Body mass index (BMI) Body weight Provider Name and Address Organization Details Last Updated DateTime 03/20/2023 182.88 cm 30.5 kg/m2 501528.28 g Ananth [facility] 03/20/2023 13:59:42 Date Recorded Body height Body mass index (BMI) Body weight Provider Name and Address Organization Details Last Updated DateTime 04/01/2024 182.88 cm 29.2 kg/m2 93489.36 paulette Guajardo [facility] 04/01/2024 12:50:31 Social History Question Answer Notes LastModified by Organizat ion Details LastModified Time Tobacco Smoking Status Current Every Day Smoker Gaudenciofernando Levy [facility] 03/11/2019 16:40:32 Marital Status lela Informatio n not available 03/11/2019 What Was The Date Of Your Most Recent Tobacco Screening? 04/01/2024 Information not available 04/01/2024 On What Date Was Tobacco Cessation Counseling Provided? 03/14/2022 Refused Patient On Wellbutrin Information not available 03/14/2022 Sex: Unknown Functional Status Question Answer Note LastModified by Organization D etails LastModified Time What is your level of alcohol consumption? None [email or web address] Information not available 03/11/2019 Mental Status None recorded. Family History Relationship Description Onset Age of this Age Resolved Age Notes LastModified by Organization Details LastModified Time Father Malignant neoplasm of prostate [email or web address] Not available 2018 16:40:17 Unspecified Relation Family history of malignant neoplasm [email or web address] Not available 2018 16:40:22 Unspecified Relation Diabetes mellitus [email or web address] Not available 2018 16:40:28 Medical History Condition Response Diabetes Y Allergies/Hayfever Y Arthritis Y Chronic Obstructive Pulmonary Disease Y Hypertension Y Past Encounters Encounter ID Performer Location Encounter Start Date Encounter Closed Date Diagnosis/Indication Diagnosis SNOMED-CT Code Diagnosis ICD10 Code Diagnosis IMO Codes Diagnosis Note [id number] MD [facility] [address] [address] 03/11/2019 15:31:08 04/06/2019 10:37:33 Spermatocele 84974043 N43.40 [id number] MD [facility] [address] [address] 09/16/2019 12:32:59 09/16/2019 13:20:40 Prostate specific antigen outside reference range 366672351 R97.20 N40.2 N40.3 [id number] JOSHUA MCDERMOTT MD [facility] [address],[place] [address] 8 03/16/2020 13:04:57 03/17/2020 15:07:29 History of malignant neoplasm of prostate 368441479 Z85.46 [id number] JOSHUA MCDERMOTT MD [facility] [address],[place] [address] 8 03/08/2021 15:17:23 03/09/2021 15:02:39 History of malignant neoplasm of prostate 285265770 Z85.46 Stress inc ontinence after prostatectomy 473313488 N39.3 [id number] JOSHUA MCDERMOTT MD [facility] [address],[place] [address] 8 03/14/2022 13:09:06 03/22/2022 12:54:09 Urinary tract infectious disease 52422546 N39.0 History of malignant neoplasm of prostate 630384081 Z85.46 Stress inc ontinence after prostatectomy 577983695 N39.3 [id number] JOSHUA MCDERMOTT MD [facility] [address],[place] [address] 8 03/20/2023 13:48:37 03/20/2023 14:21:00 Urinary tract infectious disease 43664497 N39.0 History of malignant neoplasm of prostate 084345762 Z85.46 Stress inc ontinence after prostatectomy 937950535 N39.3 [id number] JOSHUA MCDERMOTT MD [facility] [address],[place] [address] 8 04/01/2024 12:42:19 04/01/2024 16:46:06 History of malignant neoplasm of prostate 462106103 Z85.46 Health Concerns Section Related Observation LastModified by Organization Detai ls LastModified Time None Recorded Concern Status LastModified by Organization Details LastModified Time None Recorded Advance Directives Directive None Recorded Payers Insurance Date Sequence Insurance Name Policy Number Policy Adkins Covered Member ID Adkins Member ID Guarantor Name 06/15/2024 2 [place] [id number] Kirby Carroll Christiano [id number] Christiano 04/02/2024 2 [place] [id number] Roberto Carroll Christiano [id number] Christiano 06/07/2024 1 [place] Kirby Crenshawp [id number] Kirby Carroll Christiano 04/02/2024 2 [place] [id number] Kirby Carroll Christiano [id number] Kirby [address] Christiano 04/02/2024 2 [place]MEDICARE REPLACEMENT REGIONAL PPO) Kirby Crenshawp [id number] Christiano Notes Date Note Type Note Provider Name and Address Organization Details Recorded Time 03/16/2020 text/html 70-year-old male in the office for follow-up evaluation for history of prostate carcinoma status post robotic prostatectomy 2014. No hematuria or dysuria. No incontinence. He has occasional hesitancy. He has right spermatocele, not changed in size. Does not causing bother symptoms. He voids 45 times daily without nocturia. JOSHUA MCDERMOTT MD [address] [place] [address], [address], [facility] 03/19/2020 18:09:39 03/08/2021 text/html 71-year-old male in the office for follow-up evaluation of adenocarcinoma of the prostate status post robotic assisted laparoscopic radical prostatectomy in 2014. He has occasional post prostatectomy incontinence. No hematuria or dysuria. He voids 4 or 5 times daily without nocturia. JOSHUA MCDERMOTT MD [address] [place] [address], [address], [facility] 03/09/2021 07:00:04 03/14/2022 text/html 72-year-old male in the office for follow-up evaluation of adenocarcinoma of the prostate status post robotic assisted laparoscopic radical prostatectomy in 2014. He has occasional post prostatectomy incontinence. He reports increase leakage, he goes through 2 pads today. He reports kidney function is worsening. 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 No gross hematuria or dysuria. JOSHUA MCDERMOTT MD [address] [place] [address], [address], [facility] 03/17/2022 11:12:24 03/20/2023 text/html 73-year-old male in the office for follow-up evaluation of adenocarcinoma of the prostate status post robotic assisted laparoscopic radical prostatectomy in 2014. He has occasional post prostatectomy incontinence, 1 pad per day. No hesitancy. Occasional urgency. Daytime frequency 3-4 times. No nocturia. No gross hematuria. No dysuria. JOSHUA MCDERMOTT MD [address] [place] [address] [place], [address], [facility] 03/23/2023 11:01:16 04/01/2024 text/html 74-year-old male in the office for follow-up evaluation of adenocarcinoma of the prostate status post robotic assisted laparoscopic radical prostatectomy in 2014. Patient has recent medical complaints of a non-functional and diseased gallbladder, recently placed cardiac stents, pancreatitis, and atrial fibrillation. He reports a slow urine stream, no dysuria, no hematuria, occasional urge incontinence, no nocturia. JOSHUA MCDERMOTT MD [address] [place] [address], [address], [facility] 04/02/2024 10:41:18
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
--- NOTE | 2024-12-31 07:30 | US_ITS ---
FINAL REPORT TECHNIQUE: Sonographic images of the right upper quadrant were obtained. CLINICAL HISTORY: cirrhosis follow up FINDINGS: PANCREAS: Unremarkable. LIVER: Fatty infiltrated. No focal hepatic lesion. Portal vein is patent.. GALLBLADDER: Prior cholecystectomy. COMMON DUCT: 4 mm. Normal for age. RIGHT KIDNEY: The right kidney measures 10.2 cm. There is no hydronephrosis, mass, or stone. FREE FLUID: None. IMPRESSION: Fatty liver. Reviewed, Interpreted and Dictated by Veronika Dumont MD Transcribed by Sophia Simeon Authenticated and [facility]
== END 2024-12-31 23:59 | disposition home or self-care (01) ==
LOC: RAD 07:16
PROVIDERS: PCP Family Medicine; Visit Provider Nurse Practitioner Family
DX: K74.60 Unspecified cirrhosis of liver (principal)
CPT/HCPCS: 76705

== ENCOUNTER 2025-01-06 06:42 | Outpatient (CLI) | payer MEDICARE, BC, SELFPAY ==
--- OUTSIDE RECORDS SUMMARY | 2024-11-19 12:30 | XMS_ITS | Encounter Summary ---
[facility] Address [address] [place] [address] Care Team Providers Care House Painter Helper Name Role Phone Otilio Menendez MD Primary Care Provider +1- [phone] Encounter Details Date Type Department Care Team (Latest Contact Info) Description 11/19/2024 12:30 PM EDT Pre-Admission Testing [facility] PREAD[facility] T [address] [place] [address] PAF (paroxysmal atrial fibrillation) Social History Tobacco Use Types Packs/Day Years Used Date Smoking Tobacco: Every Day Cigarettes 1.5 62.8 Started: 1962 Passive Smoke Exposure: Current Smokeless Tobacco: Never Tobacco Cessation:Ready to Q uit: No; Counseling Given: Not Answered Alcohol Use Standard Drinks/Week Comments Not Currently 0 (1 standard drink = 0.6 oz pur e alcohol) [facility] Utilities Answer Date Recorded In the past 12 months has [employer], gas, oil, or water [employer] threatened to shut off services in your [...] GED or equivalent No 11/19/2024 Preferred Language Kosovan 11/19/2024 Sex and Gender Information Value Date Recorded Sex Assigned at Not on file Legal Sex Male 11:07 AM EDT Gender Identity Not on file Sexual Orientation Not on file documented as of this encounter Plan of Treatment Upcoming Encounters Date Type Department Care Team (Late st Contact Info) Description 02/28/2025 11:00 AM EST Office Visit [facility] [address] [facility] [address] [place] [address] Mark Guerra, DO [address] [place] [address] 06/06/2025 10:30 AM EST Office Visit [facility] [address] [facility] [address] [place] [phone] Kirby Stack PA [address] [place], [place] [id number] 12/05/2025 11:30 AM EDT Office Visit [facility] [address] [facility] [address] [place] [address] Mark Guerra, DO [address] [place], [place] [id number] documented as of this encounter Procedures Procedure Name Priority Date/Time Associated Diagnosis Comments CBC (NO DIFF) Routine 11/19/2024 12:12 PM EDT PAF (paroxysmal atrial fibrillation) BASIC METABOLIC PANEL Routine 11/19/2024 12:12 PM EDT PAF (paroxysmal atrial fibrillation) documented in this encounter Results * (ABNORMAL) Basic Metabolic Panel (11/19/2024 12:12 PM EDT) Glucose 87 65 - 99 mg/dL 11/19/2024 12:58 PM EDT [facility] BUN 23.2(H) 8.0 - 23.0 mg/dL 11/19/2024 12:58 PM EDT [facility] Creatinine 1.64(H) 0.76 - 1.27 mg/dL 11/19/2024 12:58 PM EDT [facility] Sodium 137 136 - 145 mmol/L 11/19/2024 12:58 PM EDT [facility] Potassium 4.7 3.5 - 5.2 mmol/L 11/19/2024 12:58 PM EDT [facility] Comment:Slight hemolysis det ected by analyzer. Result may be falsely elevated. Chloride 103 98 - 107 mmol/L 11/19/2024 12:58 PM EDT [facility] CO2 25.0 22.0 - 29.0 mmol/L 11/19/2024 12:58 PM EDT [facility] Calcium 9.3 8.6 - 10.5 mg/dL 11/19/2024 12:58 PM EDT [facility] BUN/Creatinine Ratio 14.1 7.0 - 25.0 11/19/2024 12:58 PM EDT [facility] Anion Gap 9.0 5.0 - 15.0 mmol/L 11/19/2024 12:58 PM EDT [facility] eGFR 43.4(L) >60.0 mL/min/1.7 3 11/19/2024 12:58 PM EDT [facility] Blood Venipuncture / Unknown 11/19/2024 12:12 PM EDT 11/19/2024 12:31 PM EDT Narrative [facility] - 11/19/2024 12:58 PM [...] Davies APRN LAB BLOOD ORDERABLES Final Result [facility]
[address] [place] [address], * (ABNORMAL) CBC (No Diff) (11/19/2024 12:12 PM EDT) WBC 13.52(H) 3.40 - 10.80 10*3/mm3 11/19/2024 12:43 PM EDT [facility] RBC 4.82 4.14 - 5.80 10*6/mm3 11/19/2024 12:43 PM EDT [facility] Hemoglobin 15.9 13.0 - 17.7 g/dL 11/19/2024 12:43 PM EDT [facility] Hematocrit 48.2 37.5 - 51.0 % 11/19/2024 12:43 PM EDT [facility] MCV 100.0(H) 79.0 - 97.0 fL 11/19/2024 12:43 PM EDT [facility] MCH 33.0 26.6 - 33.0 pg 11/19/2024 12:43 PM EDT [facility] MCHC 33.0 31.5 - 35.7 g/dL 11/19/2024 12:43 PM EDT [facility] RDW 13.6 12.3 - 15.4 % 11/19/2024 12:43 PM EDT [facility] RDW-SD 50.3 37.0 - 54.0 fl 11/19/2024 12:43 PM EDT [facility] MPV 11.4 6.0 - 12.0 fL 11/19/2024 12:43 PM EDT [facility] Platelets 184 140 - 450 10*3/mm3 11/19/2024 12:43 PM EDT [facility] Blood Venipuncture / Unknown 11/19/2024 12:12 PM EDT 11/19/2024 12:31 PM EDT Donya Davies APRN LAB BLOOD ORDERABLES Final Result [facility]
[address] [id number], documented in this encounter Visit Diagnoses Diagnosis PAF (paroxysmal atrial fibrillation) Atrial fibrillation documented in this encounter Care Teams House Painter Helper Relationship Specialty Start Date End Date Otilio Menendez MD [address] [place] [address] PCP - General Family Medicine 10/29/22 documented as of this encounter
--- OUTSIDE RECORDS SUMMARY | 2024-11-19 13:19 | XMS_ITS | Encounter Summary ---
Author Organization [facility] Address [address] [place] [address] Care Team Providers Care Orchard Sprayer Name Role Phone Otilio Menendez MD Primary Care Provider +1- [phone] Reason for Referral * MRI/CAT/PET Scan (Routine) - Closed Specialty Diagnoses / Procedures Referred By Zainabac t Referred To Contact Radiology Diagnoses PAF (paroxysmal atrial fibrillation) Procedures CT Angiogram Chest Kirby Stack PA [address] [place] [address] [facility] E [address] [place] [address] Phone: tel: fax: Referral ID Status Reason Start Date Expiration Date Visits Re quested Visits Authorized [id number] Closed 11/19/2024 12/06/2025 1 1 Reason for Visit * MRI/CAT/PET Scan (Routine) - Closed Specialty Diagnoses / Procedures Referred By Contac robert Referred To Contact Radiology Diagnoses PAF (paroxysmal atrial fibrillation) Procedures CT Angiogram Chest Kirby Stack PA [address] [place] [address] [place] [address] Phone: tel: fax: Referral ID Status Reason Start Date Expiration Date Visits Re quested Visits Authorized [id number] Closed 11/19/2024 12/06/2025 1 1 Encounter Details Date Type Department Care Team (Latest Contact Info) Description 11/19/2024 1:19 PM EDT - 11/19/2024 11:59 PM EDT Hospital Encounter [facility] AT [address] [place] [address] PAF (paroxysmal atrial fibrillation) Discharge Disposition: Home or Self Care Social History Tobacco Use Types Packs/Day Years Used Date Smoking Tobacco: Every Day Cigarettes 1.5 62.8 Started: 1963 Passive Smoke Exposure: Current Smokeless Tobacco: Never Alcohol Use Standard Drinks/Week Comments Not Currently 0 (1 standard drink = 0.6 oz pur e alcohol) [facility] Utilities Answer Date Recorded In the past 12 months has th e [employer], gas, oil, or water [employer] threatened to shut off services in your [...] GED or equivalent No 11/19/2024 Preferred Language Zimbabwean 11/19/2024 Sex and Gender Information Value Date [...] Description 02/28/2025 11:00 AM EST Office Visit [facility] [address] [facility] [address] [place] [address] Mark Guerra DO [address] [facility] [address] [address] 06/06/2025 10:30 AM EST Office Visit [facility] [address] [facility] [address] [place] [address] Kirby Stack PA [address] [facility] E [facility] [address] [place] [address] 12/05/2025 11:30 AM EDT Office Visit [facility] [address] [facility] [address] [place] [address] Charlie Mark Bolivar, DO [address] [place] [address] documented as of this encounter Procedures Procedure [...] MD 11/19/2024 2:50 PM EDT Workstation ID: [id number] Narrative 11/19/2024 2:[address] ANGIOGRAM [...] MD 11/19/2024 2:50 PM EDT Workstation ID: [id number] JEANNE Perez IMMiesha CT ORDERABLES Final Re [...] mL documented in this encounter Care Teams Orchard Sprayer Relationship Specialty Start Date End Date Otilio Menendez MD [address] [place] [address] PCP - General Family Medicine 10/29/22 documented as of this encounter
--- OUTSIDE RECORDS SUMMARY | 2024-11-25 08:24 | XMS_ITS | Encounter Summary ---
Author Organization [facility] Address [address] [place] [address] Care Team Providers Care [employer] Science Teacher Name Role Phone Otilio Menendez MD Primary Care Provider [phone]- [phone] Reason for Referral * Invasive Procedures (Routine) - Pending Review Specialty Diagnoses / Procedures Referred By Lawanda jones Referred To Contact Diagnoses PAF (paroxysmal atrial fibrillation) Procedures EP/CRM Study Kirby Stack PA [address] [place] [address] Phone: tel: fax: Referral ID Status Reason Start Date Expiration Date V isits Requested Visits Authorized Pending Review 09/17/2024 12/17/2025 1 1 Reason for Visit * Auth/Cert Specialty Diagnoses / Procedures Referred By Lawanda jones Referred To Contact Diagnoses PAF (paroxysmal atrial fibrillation) afib Procedures CO ABLATE L/R ATRIAL FIBRIL W/ISOLATED PULM VEIN CO COMPRE EP EVAL ABLTJ ATR FIB PULM VEIN ISOLATION CO INTRACARDIAC ELECTROPHYSIOLOGIC 3D MAPPING CO COMPRE EP EVAL W/L ATRIAL PACG&REC C SINS/L ATR CO PROGRAMMED STIMJ & PACG AFTER IV DRUG INFUSION CO COMPRE EP EVAL W/LEFT VENTRICULAR PACING/REC CO N-INVAS AUGMNT ARRHYT FREDA RAJAN CAR ARRHYT SIMUL CO ICAR CATH ABLATION DISCRETE MECHANISM ARRHYTHMIA CO CLOSURE DEV, VASC Ablation atrial fibrillation; PFA; Rhythmia; General anesthesia; Preop CT; Do not hold anticoagulation Referral ID Status Reason Start Date Expiration Date Visits Re quested Visits Authorized [id number] 1 1 Encounter Details Date Type Department Care Team (Late st Contact Info) Description 11/25/2024 8:24 AM EDT - 11/25/2024 3:56 PM EDT Hospital Encounter [facility] [address] [place] [id number] Mark Guerra, DO [address] [place] [address] PAF (paroxysmal atrial fibrillation) Discharge [...] In the past 12 months has e [employer], gas, oil, or water [employer] threatened to shut off services in your [...] GED or equivalent No 11/19/2024 Preferred Language Tuvaluan 11/19/2024 Sex and Gender Information Value Date [...] 8:50 AM EDT Abby Bernard RN * [place] Suicide Severity Rating Scale (Screener/Recent Self-Report) Question Answer Date of Assessment Author 6. Suicidal Behavior (Lifetime) No 8:50 AM EDT Abby Bernard RN documented as of this encounter Discharge Instructions * Attachments The following attachments cannot be sent through Care Everywhere. * Cardiac Ablation ([place]valuan) * Femoral Site Care (Tuvaluan) * General Anesthesia Adult Care After (Tuvaluan) * Rivaroxaban Tablets (Tuvaluan) * Atrial Fibrillation ([place]uan) documented in this encounter Medications at Time [...] Physician (Cardiology) Reggie Ndiaye PA-C as Physician Cellular Tower Climber (Cardiology) Chief complaint paroxysmal atrial fibrillation Subjective [...] CHOLECYSTECTOMY LAPAROSCOPIC; Surgeon: Alfonso Jack MD; Location: [facility]; Service: General; Laterality: N/A; COLONOSCOPY FOREIGN BODY [...] uninterrupted for at least 90 days Donya Davies APRN Electrophysiology [place] [facility] / [facility] Cosigned by Mark Guerra DO at 11/30/2024 3:17 PM EDT Associated attestation - Mark Guerra DO - 11/30/2024 3:17 PM EDT I have reviewed this documentation and agree. documented in this encounter Nursing Notes * Mirta Gonzáles, RN - 10/25/2024 7:43 AM EDTSummary: Pre-PVA Assessment PRE-PVA ASSESSMENT Kirby Alvarado 1950 [address] [facility] [address] Referral Source: Otilio Menendez MD Information obtained [...] NO [] TIA NO [x] CAD [] [place] NO [x] Dyslipidemia [x] Statin indicated: Crestor [...] were not included. Cardiac Electrophysiology Procedure Note [facility] at [facility] CATHETER ABLATION FOR ATRIAL FIBRILLATION (PVI) PROCEDURES [...] after revisiting the delgado portions of the riskversus benefit profile of [...] times throughout the procedure. We used the [employer] 3D electroanatomic mapping system in conjunction with [...] per routine follow up. Mark Guerra DO, [facility], [facility] Cardiac Broadcast Producer [facility] / [facility] ' documented in this encounter Plan of Treatment Upcoming Encounters Date Type Department Care Team (Late st Contact Info) Description 02/28/2025 11:00 AM EST Office Visit [facility] CARDIOLOGY [address] [place] [id number] Mark Guerra DO [address] [place] [address] 06/06/2025 10:30 AM EST Office Visit [facility] [address] [facility] [address] [place] [address] Kirby Stack PA [address] [place] [address] 12/05/2025 11:30 AM EDT Office Visit [facility] [address] [place] [address] Mark Guerra DO [address] [place] [address] documented as of this encounter [...] in Lateral leads Confirmed by Deandre Vaughn ([id number]) on 11/29/2024 5:13:27 PM Referred By: Confirmed [...] in Lateral leads Confirmed by Deandre Vaughn ([id number]) on 11/29/2024 5:13:27 PM Referred By: Confirmed By: Deandre Vaughn us Mark Guerra DO ECG ORDERABLES Final Result ECG * ABLATION A-FIB (11/25/2024 11:23 AM EDT) Anatomical Region Laterality Modality X-Ray Angiograph y Narrative 11/25/2024 11:41 AM EDT Procedure Narrative Cardiac Electrophysiology Procedure Note [facility] at [facility] CATHETER ABLATION FOR ATRIAL FIBRILLATION (PVI) PROCEDURES [...] times throughout the procedure. We used the [employer] 3D electroanatomic mapping system in conjunction with [...] up. Mark Guerra DO, FAC, RS Cardiac Broadcast Producer [facility] / [facility] ' Risks, benefits and alternatives were discussed [...] - 152 Seconds 12/02/2024 5:32 AM EDT [facility] Comment:Serial Number: [id number]: [id number] Blood 11/25/2024 11:0 4 AM EDT 12/02/2024 5:32 AM EDT Mark Guerra DO POINT OF CARE TEST ORDERABLES F inal Result [facility]
[address] [place] [address], * Telemetry Scan (11/25/2024 9:07 AM EDT) [facility] Onbase ECG ORDERABLES Final Result documented [...] day, May switch to NS IV at [facility] if renal / if indicated New Bag [...] and THEN promethazine IF ondansetron is ineffective. ([facility]) sodium chloride 0.9 % flush 10 [...] (Given - Provider: Mendel Wren RN) heparin 59837 units/250 mL (100 units/mL) in 0.45 % [...] and THEN promethazine IF ondansetron is ineffective. ([facility]) documented in this encounter Care Teams [employer] Science Teacher Relationship Specialty Start Date End Date Otilio Menendez MD [address] [place] [address] [place] [address] PCP - General Family Medicine 10/29/22 documented as of this encounter
--- OUTSIDE RECORDS SUMMARY | 2024-11-25 10:10 | XMS_ITS | Encounter Summary ---
[facility] Address [address] [place] [address] Care Team Providers Care Financial Consultant Name Role Phone Otilio Menendez MD Primary Care Provider [phone]- [phone] Reason for Visit * Auth/Cert Specialty Diagnoses / Procedures Referred By Contac t Referred To Contact Diagnoses PAF (paroxysmal atrial fibrillation) afib Procedures [place] ABLATE L/R ATRIAL FIBRIL W/ISOLATED PULM VEIN OK COMPRE EP EVAL ABLTJ ATR FIB PULM VEIN ISOLATION OK INTRACARDIAC ELECTROPHYSIOLOGIC 3D MAPPING OK COMPRE EP EVAL W/L ATRIAL PACG&REC C SINS/L ATR OK PROGRAMMED STIMJ & PACG AFTER IV DRUG INFUSION OK COMPRE EP EVAL W/LEFT VENTRICULAR PACING/REC OK N-INVAS AUGMNT ARRHYT FREDA RAJAN CAR ARRHYT SIMUL OK ICAR CATH ABLATION DISCRETE MECHANISM ARRHYTHMIA OK CLOSURE DEV, VASC Ablation atrial fibrillation; PFA; Rhythmia; General anesthesia; Preop CT; Do not hold anticoagulation Referral ID Status Reason Start Date Expiration Date Visits Re quested Visits Authorized [id number] 1 1 Encounter Details Date Type Department Care Team (Late st Contact Info) Description 11/25/2024 10:10 AM EDT - 11/25/2024 11:10 AM EDT Surgery [facility] EP LAB [address] [place] [id number] Mark Guerra, DO [address] [facility] [address] [place] [address] Ablation atrial fibrillation; PFA; Rhythmia General anesthesia Preop CT Do not hold anticoagulation [59397 (CPT ) +8 more] Social History Tobacco Use Types Packs/Day Years Used Date Smoking Tobacco: Every Day Cigarettes 1.5 62.8 Started: 1963 Passive Smoke Exposure: Current Smokeless Tobacco: Never Alcohol Use Standard Drinks/Week Comments Not Currently 0 (1 standard drink = 0.6 oz pur e alcohol) [facility] Utilities Answer Date Recorded In the past 12 months has th e electric, gas, oil, or water company threatened to shut off services in your [...] GED or equivalent No 11/19/2024 Preferred Language Bolivian 11/19/2024 Sex and Gender Information Value Date Recorded Sex Assigned at Not on file Legal Sex Male 11:07 AM EDT Gender Identity Not on file Sexual Orientation Not on file documented as of this encounter Last Filed Vital Signs Vital Sign Reading Time Taken Comments Blood Pressure 140/77 11/25/2024 8:50 AM EDT 136/75 L arm Pulse 54 11/25/2024 8:50 AM EDT Temperature 36.2 C (97.2 F) 11/25/2024 8:50 AM EDT Respiratory Rate 16 11/25/2024 8:50 AM EDT Oxygen Saturation 95% 11/25/2024 8:5 0 AM EDT Inhaled Oxygen Concentration - - Weight 102 kg (224 lb 10.4 oz) 11/26/19 25 8:50 AM EDT Height 182.9 cm (6') [...] 8:50 AM EDT Abby Bernard RN * [place] Suicide Severity Rating Scale (Screener/Recent Self-Report) Question Answer Date of Assessment Author 6. Suicidal Behavior (Lifetime) No 5 8:50 AM EDT Abby Bernard RN documented as of this encounter Discharge Instructions * Attachments The following attachments cannot be sent through Care Everywhere. * Cardiac Ablation (Bolivian) * Femoral Site Care (Bolivian) * General Anesthesia Adult Care After (Bolivian) * Rivaroxaban Tablets (Bolivian) * Atrial Fibrillation (Bolivian) documented in this encounter Medications at Time [...] of this encounter H&P Notes * Donya DaviesANNIE - 11/25/2024 8:55 AM EDT Patient Care Team: Otilio Menendez MD as PCP - General (Family Medicine) Rylee Cordero APRN as Nurse Practitioner (Nurse Practitioner) Mark Guerra DO as Consulting Physician (Cardiology) Reggie Ndiaye PA-C as Physician Canvas Cutter Hand (Cardiology) Chief complaint paroxysmal atrial fibrillation Subjective [...] CHOLECYSTECTOMY LAPAROSCOPIC; Surgeon: Alfonso Jack MD; Location: [facility]; Service: General; Laterality: N/A; COLONOSCOPY FOREIGN [...] least 90 days Donya Davies APRN Electrophysiology [facility] Cosigned by Mark Guerra DO at 11/30/2024 3:17 PM EDT Associated attestation - Mark Guerra DO - 11/30/2024 3:17 PM EDT I have reviewed this documentation and agree. documented in this encounter Nursing Notes * Mirta Gonzáles RN - 10/25/2024 7:43 AM EDTSummary: Pre-PVA Assessment PRE-PVA ASSESSMENT [place] 1950 [address] [facility] [address] Referral Source: Otilio Menendez MD Information obtained [...] NO [] TIA NO [x] CAD [] [place] NO [x] Dyslipidemia [x] Statin indicated: Crestor [...] were not included. Cardiac Electrophysiology Procedure Note [facility] CATHETER ABLATION FOR ATRIAL FIBRILLATION (PVI) [...] times throughout the procedure. We used the [employer] 3D electroanatomic mapping system in conjunction with [...] as a separate arrhythmia. This is referred toas SVT #1. The mechanism was distinct from atrial fibrillation. The mechanism of this tachycardia was determined to be focal atrial tachycardia arising from the left atrial posterior wall. We ablatedthis SVT and in turn isolated the entire [...] per routine follow up. Mark Guerra DO, [facility], [facility] Cardiac Vocal Music Instructor [facility] / [facility] ' documented in this encounter Plan of Treatment Upcoming Encounters Date Type Department Care Team (Late st Contact Info) Description 02/28/2025 11:00 AM EST Office Visit [facility] [address] [facility] [address] [place] [address] Mark Guerra DO [facility] [address] [address] 06/06/2025 10:30 AM EST Office Visit [facility] [address] [facility] [address] [place] [address] Kirby Stack PA [address] [facility] BLDG E [address] [place] [address] 12/05/2025 11:30 AM EDT Office Visit [facility] [address] [facility] [address] [place] [phone] Mark Guerra, DO [address] [place] [id number] documented as of this encounter Procedures Procedure [...] 3:22 PM EDT) QT Interval 412 ms BH ECG QTC Interval 438 ms ECG 11/25/2024 [...] in Lateral leads Confirmed by Deandre Vaughn ([id number]) on 11/29/2024 5:13:27 PM Referred By: Confirmed [...] in Lateral leads Confirmed by Deandre Vaughn ([id number]) on 11/29/2024 5:13:27 PM Referred By: Confirmed By: Deandre Vaughn us Mark Guerra DO ECG ORDERABLES Final Result ECG * ABLATION A-FIB (11/25/2024 11:23 AM EDT) Anatomical Region Laterality Modality X-Ray Angiograph y Narrative 11/25/2024 11:41 AM EDT Procedure Narrative Cardiac Electrophysiology Procedure Note [facility] at [facility] CATHETER ABLATION FOR ATRIAL FIBRILLATION (PVI) [...] times throughout the procedure. We used the [employer] 3D electroanatomic mapping system in conjunction with [...] our office per routine follow up. Mark Guerra, , [facility], [facility] Cardiac Vocal Music Instructor [facility] / [facility] ' Risks, benefits and alternatives were discussed with the patient and/or family. Plan is for monitored anesthesia care. Less than 20 mL of estimated blood loss during the case. No specimen was collected during the case. JEANNE Perez CV ELECTROPHYSIOLOGY ORDER BENNY Final Result * (ABNORMAL) POC Activated Clotting Time (11/25/2024 11:04 AM EDT) [facility] Signature Activated Clotting Time 302(H) 82 - 152 Seconds 12/02/2024 5:32 AM EDT [facility] Comment:Serial Number: [id number]: [id number] Blood 11/25/2024 11:0 4 AM EDT 12/02/2024 5:32 AM EDT Mark Guerra DO POINT OF CARE TEST ORDERABLES F inal Result [facility]
[address] [place] [address], * Telemetry Scan (11/25/2024 9:07 AM EDT) [facility] Onbase ECG ORDERABLES Final Result documented in this encounter Visit Diagnoses Diagnosis PAF (paroxysmal atrial fibrillation)- Primary Atrial fibrillation PAF (paroxysmal atrial fibrillation) Atrial fibrillation documented in this encounter Admitting Diagnoses Diagnosis PAF (paroxysmal atrial fibrillation) Atrial fibrillation Persistent atrial fibrillation Atrial fibrillation documented in this encounter Administered Medications Inactive Administered Medications - up to 3 most recent administrations Medication Order MAR Action Action Date Dose Rate Site adenosine (ADENOCARD) injection Code / Trauma / Sedation Medication, Starting on Charmaine 11/25/24 at 1122 Given 11/25/2024 11:22 AM EDT 12 mg bupivacaine (MARCAINE) 0.5 % injection Code / Trauma / Sedation Medication, Starting on Charmaine 11/25/24 at 1050 Given 11/25/2024 10:50 AM EDT 5 mL Groin Right droperidol (INAPSINE) injection 0.625 mg 0.625 mg, [...] of 7-10, CPOT 5-8 heparin (porcine) injection Code / Trauma / Sedation Medication, Starting on Charmaine 11/25/24 at 1053 Given 11/25/2024 11:08 AM EDT 8,000 Units Given 11/25/2024 10:53 AM EDT 16,000 Units heparin 47781 units/250 mL (100 units/mL) in 0.45 % NaCl infusion Code / Trauma / Sedation Continuous Med, Starting on Charmaine 11/25/24 at 1100 New Bag 11/25/2024 10:53 AM EDT 50 Units/kg/hr 51 mL/hr hydrALAZINE (APRESOLINE) injection 5 mg 5 mg, [...] 11/25/24 at 1508, For 2 doses, Indications: HypotensionIndications:Hyp otension lactated ringers infusion 9 mL/hr, Intravenous, Continuous, Starting on Fri11/26/24 at 0600, For 1 day, May switch to NS IV at [facility] if renal / if indicated New Bag 11/25/2024 10:23 AM EDT lactated ringers infusion 9 mL/hr, Intravenous, Continuous, Starting on Charmaine 11/25/24 at 1510, For 1 day lidocaine (XYLOCAINE) 1 % injection Code / Trauma / Sedation Medication, Starting on Charmaine 11/25/24 at 1050 Given 11/25/2024 10:50 AM EDT 5 mL Groin Right lidocaine PF 1% (XYLOCAINE) injection 0.5 mL [...] IF ondansetron is ineffective. ([facility]) protamine injection Code / Trauma / Sedation Medication, Starting on Charmaine 11/25/24 at 1124 Given 11/25/2024 11:24 AM EDT 100 mg sodium chloride 0.9 % flush 10 mL [...] mg 20 mg, Oral, Once, On Charmaine 11/25/24 at 0903, For 1 dose 0903 (Due) sodium chloride 0.9 % flush 10 mL 10 mL, Intravenous, Every 12 Hours Scheduled, First dose on Charmaine 11/25/24 at 0903 0903 (Due) sodium chloride 0.9 % flush 3 mL 3 mL, Intravenous, Every 12 Hours Scheduled, First dose on Charmaine 11/25/24 at 2100 Continuous Medication Order 11/23/2024 11/24/2024 [...] Charmaine 11/25/24 at 1510, For 1 day 1510 (Due) PRN Medication Order 11/23/2024 11/24/2024 11/25/2024 adenosine (ADENOCARD) injection (CANCELED) Code / Trauma / Sedation Medication, Starting on Charmaine 11/25/24 at 1122 1122 (Given - Provid er: [...] Charmaine 11/25/24 at 1508, For 2 doses fentaNYL citrate [...] (Given - Provider: Mendel Wren RN) heparin 83529 units/250 mL (100 units/mL) in 0.45 % [...] THEN promethazine IF ondansetron is ineffective. ([facility]) documented in this encounter Care Teams Financial Consultant Relationship Specialty Start Date End Date Otilio Menendez MD [address] [place] [address] [place] [address] PCP - General Family Medicine 10/29/22 documented as of this encounter
--- OUTSIDE RECORDS SUMMARY | 2024-11-25 10:23 | XMS_ITS | Encounter Summary ---
[facility] Address [address] [place] [address] Care Team Providers Care Size Roller Operator Name Role Phone Otilio Menendez MD Primary Care Provider [phone]- [phone] Reason for Visit * Auth/Cert Specialty Diagnoses / Procedures Referred By Contac t Referred To Contact Diagnoses PAF (paroxysmal atrial fibrillation) afib Procedures [place] ABLATE L/R ATRIAL FIBRIL W/ISOLATED PULM VEIN [place] COMPRE EP EVAL ABLTJ ATR FIB PULM VEIN ISOLATION [place] INTRACARDIAC ELECTROPHYSIOLOGIC 3D MAPPING [place] COMPRE EP EVAL W/L ATRIAL PACG&REC C SINS/L ATR [place] PROGRAMMED STIMJ & PACG AFTER IV DRUG INFUSION [place] COMPRE EP EVAL W/LEFT VENTRICULAR PACING/REC [place] N-INVAS AUGMNT ARRHYT FREDA RAJAN CAR ARRHYT SIMUL [place] ICAR CATH ABLATION DISCRETE MECHANISM ARRHYTHMIA [place] CLOSURE DEV, VASC Ablation atrial fibrillation; PFA; Rhythmia; General anesthesia; Preop CT; Do not hold anticoagulation Referral ID Status Reason Start Date Expiration Date Visits Re quested Visits Authorized [id number] 1 1 Encounter Details Date Type Department Care Team (Late st Contact Info) Description 11/25/2024 10:23 AM EDT Anesthesia Event [facility] EP [facility] [address] [place] [address] Agustin Castellon MD [address] [place] [id number] Anesthesia Record Procedure Summary Procedure Name Responsible Anesthesiologist Anesthesia Start Time Anesthesia Stop Time Ablation atrial fibrillation; PFA; Rhythmia General anesthesia Preop CT Do not hold anticoagulation Agustin Castellon MD 11/25/24 1023 11/25/24 1132 Events Date Time Event Comment 11/25/2024 0939 1023 AN Equip Check 1023 An Start The patient was reevaluated immediately before moderate or deep sedation use and before anesthesia induction. 1023 An Start Data 1034 An Induction 1035 An Intubation 1129 An Extubation 1131 an stop data 1132 Handoff to RN The following has been completed: 1. Identification of Patient, delgado family member(s) or patient surrogate 2. Identification of the responsible Practitioner (primary service) 3. Discussion of the pertinent/attainable medical history 4. Discussion of the surgical/procedure course (procedure, reason for surgery, procedure performed) 5. Intraoperative anesthetic management and issue/concerns to include things such as airway, hemodynamics, narcotic, sedation level and paralytic management and intravenous fluids/blood products and urine output during the procedure 6. Expectations/Plans for the early post-procedure period to include things such as anticipated course (anticipatory guidance), complications, need for laboratory or ECG and medication administration 7. Opportunity for questions and acknowledgment of understanding of report from the receiving PACU/ICU team 1132 An Stop Meds Name Total propofol 10 MG/ML 150 mg sugammadex 200 MG/2ML 500 mg ondansetron 2 mg/mL 4 mg dexAMETHasone 4 MG/ML 8 mg rocuronium (ZEMURON) 50 mg/5 mL injectio n 100 mg phenylephrine (ZAIRE-SYNEPHRIN E) 50 mg in sodium chloride 0.9 % 250 mL infusion 3,480 mcg ePHEDrine injection 20 mg lactated ringers infusion 500 mL * Agents Name O2 N2O Air Sevoflurane Inspired Sevoflurane * Blood No blood administrations on file. Lines, Drains, and Airways Type Details Placement Removal Peripheral IV Placement Date: 11/06 05/01; Placement Time: 0850; Catheter Size: 20 G; Orientation: Left; Location: Antecubital; Site Prep: Alcohol; Technique: Anatomical landmarks; Insertion Attempts: 1; Patient Tolerance: Tolerated well; Removal Date: 11/25/24; Removal Time: 1550 11/25/24 0850 by Abby Bernard RN 11/25/24 1550 by Lizz Moe RN Peripheral IV Placement Date: 11/06 05/01; Placement Time: 0850; Catheter Size: 20 G; Orientation: Anterior, Proximal, Right; Location: Forearm; Site Prep: Alcohol; Technique: Anatomical landmarks; Insertion Attempts: 1; Patient Tolerance: Tolerated well; Removal Date: 11/25/24; Removal Time: 1550 11/25/24 0850 by Abby Bernard RN 11/25/24 1550 by Lizz Moe RN ETT Placement Date: 11/06 05/01; Placement Time: 1035 (created via procedure documentation); Blade Size: 4; Location: Oral; Removal Date: 11/25/24; Removal Time: 1129 11/25/24 1035 by Leonidas Salcedo CRNA 11/25/24 1129 by Leonidas Salcedo CRNA Venous Sheath 11/25/24; 1051; 8 Fr .; Right; Femoral; aasbo; Injectable; Chlorhexidine; Yes; figure 8; 11/25/24; 1122; Not present on admission, Per protocol/policy; No complications 11/25/24 1051 by Elmer Grier RN 11/25/24 1122 by Elmer Grier RN Venous Sheath 11/25/24; 1052; Yes; 8 Fr.; Right; Femoral; aasbo; Injectable; Chlorhexidine; Yes; figure 8; 11/25/24; 1122; Not present on admission, Per protocol/policy; No complications 11/25/24 1052 by Elmer Grier RN 11/25/24 1122 by Elmer Grier RN Venous Sheath 11/25/24; 1052; Yes; 11 Fr.; Right; Femoral; aasbo; Injectable; Chlorhexidine; Yes; figure 8; 11/25/24; 1122; Not present on admission, Per protocol/policy; No complications 11/25/24 1052 by Elmer Grier RN 11/25/24 1122 by Elmer Grier RN documented in this encounter Social History Tobacco Use Types Packs/Day Years Used Date Smoking Tobacco: Every Day Cigarettes 1.5 62.8 Started: 1963 Passive Smoke Exposure: Current Smokeless Tobacco: Never Alcohol Use Standard Drinks/Week Comments Not Currently 0 (1 standard drink = 0.6 oz pur e alcohol) [facility] Utilities Answer Date Recorded In the past 12 months has [employer], gas, oil, or water [email or web address] threatened to shut off services in your [...] money to buy more. Never true 08/25/19 Within the past 12 months, t he [...] GED or equivalent No 11/19/2024 Preferred Language Yemeni 11/19/2024 Sex and Gender Information Value Date Recorded Sex Assigned at Not on file Legal Sex Male 11:07 AM EDT Gender Identity Not on file Sexual Orientation Not on file documented as of this encounter Functional Status * Question Answer [...] 8:50 AM EDT Abby Bernard RN * [place] Suicide Severity Rating Scale (Screener/Recent Self-Report) Question Answer Date of Assessment Author 6. Suicidal Behavior (Lifetime) No 8:50 AM EDT Abby Bernard RN documented as of this encounter OR Notes * Anesthesia Postprocedure Evaluation - Leonidas Salcedo CRNA - 11/25/2024 11:32 AM EDT Patient: Kirby Alvarado Procedure Summary Date: 11/25/24 Room / Location: [facility] / [facility] Anesthesia Start: 1023 Anesthesia Stop: 1132 Procedure: Ablation atrial fibrillation; PFA; Rhythmia General anesthesia Preop CT Do not hold anticoagulation Diagnosis: PAF (paroxysmal atrial fibrillation) (afib) Providers: Mark Guerra DO Provider: Agustin Castellon MD Anesthesia Type: general ASA Status: 4 Anesthesia Type: general Vitals No vitals data found for the desired time range. Post Anesthesia Care and Evaluation Patient location during evaluation: PACU Patient participation: complete - patient participated Level of consciousness: awake and alert Pain management: adequate Airway patency: patent Anesthetic complications: No anesthetic complications PONV Status: none Cardiovascular status: hemodynamically stable and acceptable Respiratory status: nonlabored ventilation, acceptable and nasal cannula Hydration status: acceptable * Anesthesia Procedure Notes - Leonidas Salcedo CRNA - 11/25/2024 10:40 AM EDT Associated Order(s): Airway Airway Reason: elective Date/Time: 11/25/2024 10:35 AM Airway not difficult General Information and Staff Patient location during procedure: OR FLOOR GRINDER/CAA: Leonidas Salcedo CRNA Indications and Patient Condition Indications for airway management: airway protection Preoxygenated: yes MILS not maintained throughout Mask difficulty assessment: 1 - vent by mask Final Airway Details Final airway type: endotracheal airway Successful airway: ETT Cuffed: yes Successful intubation technique: video laryngoscopy Endotracheal tube insertion site: oral Blade: Barclay Blade size: 4 ETT size (mm): 7.5 Cormack-Lehane Classification: grade I - full view of glottis Placement verified by: chest auscultation and capnometry Measured from: lips ETT/EBT to lips (cm): 22 Number of attempts at approach: 1 Assessment: lips, teeth, and gum same as pre-op and atraumatic intubation Additional Comments Negative epigastric sounds, Breath sound equal bilaterally with symmetric chest rise and fall * Anesthesia Preprocedure Evaluation - Agustin Castellon MD - 11/25/2024 9:12 AM EDT Images from the original note were not included. Anesthesia Evaluation Patient summary reviewed and Nursing notes reviewed NPO Solid Status: > 8 hours NPO Liquid Status: > 2 hours Airway Mallampati: I TM distance: >3 FB Neck ROM: full No difficulty expected Dental (+) upper dentures, edentulous, poor dentition and partials Pulmonary (+) a smoker Current, cigarettes, COPD (NO MDI) mild,sleep apnea on CPAP (-) asthma, shortness of breath, recent URI, no home oxygen Cardiovascular ECG reviewed PT is on anticoagulation therapy Patient on routine beta césar (+) hypertension, CAD, cardiac stents (2023) within the past 12 months , dysrhythmias Atrial Fib, hyperlipidemia ROS comment: ECG SR PACS RBBB ECHO 2022 normal EF, mild aortic valve sclerosis, mild mitral regurgitation 2020 carotid ultrasound Neuro/Psych (-) seizures, CVA GI/Hepatic/Renal/Endo (+) hiatal hernia, GERD, liver disease, renal disease (elevated creat K normal creat 1.6)-, diabetes mellitus (A1C >7) type 2 poorly controlled (-) no thyroid disorder Musculoskeletal 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 Plan discussed with FLOOR GRINDER. CODE STATUS: documented in this encounter Plan of Treatment Upcoming Encounters Date Type Department Care Team (Late st Contact Info) Description 02/28/2025 11:00 AM EST Office Visit [facility] CARDIOLOG[facility] [address] [facility] [address] [place] [address] Mark Guerra DO [address] [facility] [address] [place] [address] 06/06/2025 10:30 AM EST Office Visit [facility] [address] [facility] [address] [place] [address] Kirby Stack PA [address] [facility] [address] [place] [address] 12/05/2025 11:30 AM EDT Office Visit [facility] CARDI[facility] [address] [facility] [address] [place] [address] Mark Guerra, DO [address] [facility] [address] [place] [address] documented as of this encounter Procedures Procedure Name Priority Date/Time Associated Diagnosis Comments ANESTHESIA INTUBATION Routine 11/25/2024 10:40 AM EDT documented in this encounter Results * BH AN ETT AIRWAY (11/25/2024 10:40 AM EDT) Narrative Leonidas Salcedo CRNA - 11/25/2024 10:40 AM EDT Leonidas Salcedo CRNA 11/25/2024 10:40 AM Airway Reason: elective Date/Time: 11/25/2024 10:35 AM Airway not difficult General Information and Staff Patient location during procedure: OR FLOOR GRINDER/CAA: Leonidas Salcedo CRNA Indications and Patient Condition Indications for airway management: airway protection Preoxygenated: yes MILS not maintained throughout Mask difficulty assessment: 1 - vent by mask Final Airway Details Final airway type: endotracheal airway Successful airway: ETT Cuffed: yes Successful intubation technique: video laryngoscopy Endotracheal tube insertion site: oral Blade: Barclay Blade size: 4 ETT size (mm): 7.5 Cormack-Lehane Classification: grade I - full view of glottis Placement verified by: chest auscultation and capnometry Measured from: lips ETT/EBT to lips (cm): 22 Number of attempts at approach: 1 Assessment: lips, teeth, and gum same as pre-op and atraumatic intubation Additional Comments Negative epigastric sounds, Breath sound equal bilaterally with symmetric chest rise and fall Agustin Castellon MD ANESTHESIA ORDERABLES Final Res ult documented in this encounter Visit Diagnoses Not on filedocumented in this encounter Administered Medications Inactive Administered Medications - up to 3 most recent administrations Medication Order MAR Action Action Date Dose Rate Site dexAMETHasone (DECADRON) injection Intravenous, As Needed, Starting on Charmaine 11/25/24 at 1040 Given 11/25/2024 10:40 AM EDT 8 mg ePHEDrine injection Intravenous, As Needed, Starting on Charmaine 11/25/24 at 1042 Given 11/25/2024 10:51 AM EDT 10 mg Given 11/25/2024 10:42 AM EDT 10 mg lactated ringers infusion 9 mL/hr, Intravenous, Continuous, Starting on Fri11/26/24 at 0600, For 1 day, May switch to NS IV at [facility] if renal / if indicated New Bag 11/25/2024 10:23 AM EDT ondansetron (ZOFRAN) injection Intravenous, As Needed, Starting on Charmaine 11/25/24 at 1040 Given 11/25/2024 10:40 AM EDT 4 mg phenylephrine (ZAIRE-SYNEPHRINE) 50 mg in sodium chloride 0.9 % 250 mL infusion Intravenous, Continuous PRN, Starting on Charmaine 11/25/24 at 1034 Rate/Dose Change 11/25/2024 11:11 AM EDT 40 mcg/min 12 mL/hr Rate/Dose Change 11/25/2024 11:05 AM EDT 50 mcg/min 15 mL/ hr Rate/Dose Change 11/25/2024 10:42 AM EDT 100 mcg/min 30 mL /hr propofol (DIPRIVAN) injection Intravenous, As Needed, Starting on Charmaine 11/25/24 at 1034 Given 11/25/2024 10:34 AM EDT 150 mg rocuronium (ZEMURON) injection Intravenous, As Needed, Starting on Charmaine 11/25/24 at 1034 Given 11/25/2024 10:34 AM EDT 100 mg sugammadex (BRIDION) injection Intravenous, As Needed, Starting on Charmaine 11/25/24 at 1127 Given 11/25/2024 11:27 AM EDT 500 mg documented in this encounter Care Teams Size Roller Operator Relationship Specialty Start Date End Date Otilio Menendez MD [address] [place] [address] PCP - General Family Medicine 10/29/22 documented as of this encounter
--- OUTSIDE RECORDS SUMMARY | 2024-12-09 12:45 | XMS_ITS | Encounter Summary ---
[facility] Organization [facility] Address [address] [place] [address] Care Team Providers Care Tax Agent Name Role Phone Otilio Menendez MD Primary Care Provider +1- [phone] Reason for Visit * Reason Comments Atrial Fibrillation S/p PVA, groin wound check Encounter Details Date Type Department Care Team ([facility] st Contact Info) Description 12/09/2024 12:45 PM EDT Office Visit [facility] [address] [facility] [address] [place] [address] Demetrice Simeon, ANNIE [address] [facility] [address] [place] [address] PAF (paroxysmal atrial fibrillation) (Primary Dx); Typical atrial flutter; Essential hypertension; Obstructive sleep apnea syndrome; Obesity (BMI 30.0-34.9); Bradycardia Social History Tobacco Use Types Packs/Day Years Used Date Smoking Tobacco: Every Day Cigarettes 1.5 62.8 Started: 1964 Passive Smoke Exposure: Current Smokeless Tobacco: Never Alcohol Use Standard Drinks/Week Comments Not Currently 0 (1 standard drink = 0.6 oz pur e alcohol) [facility] Utilities Answer Date Recorded In the past 12 months has [employer], gas, oil, or water [employer] threatened to shut off services in your [...] GED or equivalent No 11/19/2024 Preferred Language Citizen Of [place] 11/19/2024 Sex and Gender Information Value Date [...] APRN - 12/09/2024 12:45 PM EDT [facility] Chief Complaint Atrial Fibrillation (S/p PVA, groin wound check) Subjective History of Present Illness {CC Problem List Visit Diagnosis Encounters Notes Medications Labs Result Review Imaging Media :23} Kirby Carroll Christiano presents to [facility] for History of Present Illness 74-year-old male with CAD, PAF/typical right atrial flutter (PVA 11/25/2024), Hypertension, diabetes, GERD, liver cirrhosis, hiatal hernia, Qiu's esophagus, chronic kidney disease stage III, COPD,YU (CPAP), tobacco use, obesity. Patient presented to [facility] on 11/25/2024 for pulmonary vein ablation (PFA) [...] Imaging Med Tab Media :23} Echocardiogram 02/16/2024 (): EF 55%, impaired LV relaxation, RV mildly [...] EST Office Visit [facility] [address] [facility] [address] [place] [address] Mark Guerra DO [address] [place] [address] 06/06/2025 10:30 AM EST Office Visit [facility] [address] [place] [address] Kirby tSack PA [address] [place] [address] 12/05/2025 11:30 AM EDT Office Visit [facility] [address] [place] [address] Mark Guerra DO [address] [place] [address] documented as of this encounter [...] has shortened Confirmed by SARAH HARDIN MD ([id number]) on 12/09/2024 3:08:54 PM Referred By: ANNIE [...] ([id number]) on 12/09/2024 3:08:54 PM Referred By: NANIE SIMEON Confirmed By: SARAH HARDIN MD us [...] dysrhythmias documented in this encounter Care Teams Tax Agent Relationship Specialty Start Date End Date Otilio Menendez MD [address] [place] [address] PCP - General Family Medicine 10/29/22 documented as of this encounter
--- OUTSIDE RECORDS SUMMARY | 2024-12-09 12:47 | XMS_ITS | Encounter Summary ---
[facility] Address [address] [place] [address] Care Team Providers Care Medical Anthropologist Name Role Phone Otilio Menendez MD Primary Care Provider +1- [phone] Encounter Details Date Type Department Care Team (Latest Contact Info) Description 12/09/2024 12:47 PM EDT - 12/09/2024 11:59 PM EDT Hospital [facility] [address] [place] [address] [address] [place] [address] PAF (paroxysmal atrial fibrillation); Typical atrial flutter; Bradycardia Discharge Disposition: Home or Self Care Social History Tobacco Use Types Packs/Day Years Used Date Smoking Tobacco: Every Day Cigarettes 1.5 62.8 Started: 1963 Passive Smoke Exposure: Current Smokeless Tobacco: Never Alcohol Use Standard Drinks/Week Comments Not Currently 0 (1 standard drink = 0.6 oz pur e alcohol) [facility] Utilities Answer Date Recorded In the past 12 months has [employer], [employer], oil, or water [employer] threatened to shut off services in your [...] GED or equivalent No 11/19/2024 Preferred Language Niuean 11/19/2024 Sex and Gender Information Value Date [...] Visit [facility] [address] [place] [address] Mark Guerra DO [address] [place] [address] 06/06/2025 10:30 AM EST Office Visit [facility] [address] [place] [address] Kirby Stack PA [address] [place], [place] [address] 12/05/2025 11:30 AM EDT Office Visit [facility] [address] [place] [address] Mark Guerra DO [address] [place] [address] documented as of this encounter [...] dysrhythmias documented in this encounter Care Teams Medical Anthropologist Relationship Specialty Start Date End Date Otilio Menendez MD [address] [place] [address] PCP - General Family Medicine 10/29/22 documented as of this encounter
--- OUTSIDE RECORDS SUMMARY | 2025-01-06 06:45 | XMS_ITS | Data Portability ---
Author Organization [facility] LEA Miranda MARION CLOSED Address [address] [facility] [facility] [address] [facility] [address] [place] [address] Care Team Providers Care Talent Acquisition Assistant Name Role Phone LUZMA ELLIOTT Primary Care Provider Assessment Encounter Date Assessment Date Assessment LastModified by Organization Details LastModified Time 03/16/2020 03/16/2020 PSA order provided. Patient is doing well. [email or web address] Not available 03/19/2020 18:08:52 03/08/2021 03/08/2021 Order provided for PSA. 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 Not available 03/09/2021 06:59:21 03/14/2022 03/14/2022 Order provided for PSA. 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 Urine for culture and sensitivity. [email or web address] Not available 03/17/2022 11:12:07 03/20/2023 03/20/2023 Continue to monitor post prostatectomy urinary symptoms. Order provided for PSA. Monitor PSA trend. [email or web address] Not available 03/23/2023 11:00:59 04/01/2024 04/01/2024 Continue to monitor PSA trend and lower urinary symptoms. [email or web address] Not available 04/02/2024 10:41:03 Plan of Treatment Reminders Order Date Submit Date Provider Last Modified By Organization Details Last Modified Time Details Appointments RECHECK 2025 01:00P Carlota MCDERMOTT MD Not available Not available Not available Lab urinalysi s panel, auto 2023 024 4 [facility], [address], [address], [place], [address], 04/02/2024 10:41:03 urinalysi s panel, auto 2022 023 [email or web address] 4 [facility], [address], [address], [place], [address], 03/23/2023 11:01:02 urinalysi s panel, auto 2021 022 [email or web address] 4 [facility], [address], [address], [place], [address], 03/19/2022 08:32:27 culture, urine 2021 022 [email or web address] 4 [facility], [address] [place] [address], [address], 03/19/2022 08:32:27 urinalysi s panel, auto 2020 021 [email or web address] 4 [facility], [address], [address], [place], [address], 03/09/2021 06:59:22 urinalysi s panel, auto 2019 020 [email or web address] 4 [facility], [address], [address], [place], [address], 03/19/2020 18:08:53 Referral None recorded. Procedures None recorded. Surgeries None recorded. Imaging None recorded. Medication Orders None recorded. Patient TargetsNo targets recorded. Patient Instructions Encounter Date Encounter Id Patient Instructions Last Modified By Organization Details Last Modified Time 03/14/2022 [id number] learning about healthy weight [id number] Not available 03/19/2022 08:32:27 03/20/2023 [id number] learning about healthy weight [email or web address] Not available 03/23/2023 11:01:00 Reason for Referral None Reported. Results Created Date Observation Date Name Description Value Unit Range Abnormal Flag Note LastModifiedBy Organization Detail LastModifiedTime 03/16/20 20 03/16/2020 urina lysis panel , auto Unknown Analyte Clean Catch Not Available [facility] [address], [place], [address], 03/16/2020 13:26:31 03/16/20 20 03/16/2020 urina lysis panel , auto Unknown Analyte Yellow Not Available [facility] With [address], [place], [address], 03/16/2020 13:26:31 03/16/20 20 03/16/2020 urina lysis panel , auto Unknown Analyte Clear Not Available [facility] With [address], [place], [address], 03/16/2020 13:26:31 03/16/20 20 03/16/2020 urina lysis panel , auto Unknown Analyte 1.020 Not Available [facility] [address], [place], [address], 03/16/2020 13:26:31 03/16/20 20 03/16/2020 urina lysis panel , auto Unknown Analyte 1.003- 1.035 Not Available [facility] With [place] [address], [place], [address], 03/16/2020 13:26:31 03/16/20 20 03/16/2020 urina lysis panel , auto Unknown Analyte 5.0 Not Available [facility] [place] [address], [place], [address], 03/16/2020 13:26:31 03/16/20 20 03/16/2020 urina lysis panel , auto Unknown Analyte 5.0-8. 0 Not Available [facility] [address], [place], [address], 03/16/2020 13:26:31 03/16/20 20 03/16/2020 urina lysis panel , auto Unknown Analyte Negati ve Not Available [facility] With [address], [place], [address], 03/16/2020 13:26:31 03/16/20 20 03/16/2020 urina lysis panel , auto Unknown Analyte Negati ve Not Available [facility] With [address], [place], [address], 03/16/2020 13:26:31 03/16/20 20 03/16/2020 urina lysis panel , auto Unknown Analyte Negati ve Not Available [facility] [address], [place], [address], 03/16/2020 13:26:31 03/16/20 20 03/16/2020 urina lysis panel , auto Unknown Analyte Negati ve Not Available [facility] [address], [place], [address], 03/16/2020 13:26:31 03/16/20 20 03/16/2020 urina lysis panel , auto Unknown Analyte Negati ve Not Available [facility] With [address], [place], [address], 03/16/2020 13:26:31 03/16/20 20 03/16/2020 urina lysis panel , auto Unknown Analyte Negati ve Not Available [facility] [place] [address], [place], [address], 03/16/2020 13:26:31 03/16/20 20 03/16/2020 urina lysis panel , auto Unknown Analyte Normal Not Available [facility] [address], [place], [address], 03/16/2020 13:26:31 03/16/20 20 03/16/2020 urina lysis panel , auto Unknown Analyte Normal Not Available [facility] With [address] [place], [place], [address], 03/16/2020 13:26:31 03/16/20 20 03/16/2020 urina lysis panel , auto Unknown Analyte Negati ve Not Available [facility] [address], [place], [address], 03/16/2020 13:26:31 03/16/20 20 03/16/2020 urina lysis panel , auto Unknown Analyte Negati ve Not Available [facility] [address], [place], [address], 03/16/2020 13:26:31 03/16/20 20 03/16/2020 urina lysis panel , auto Unknown Analyte Normal Not Available [facility] With [address] [place], [place], [address], 03/16/2020 13:26:31 03/16/20 20 03/16/2020 urina lysis panel , auto Unknown Analyte Normal 1 mg/dl Not Available [facility] With [address], [place], [address], 03/16/2020 13:26:31 03/16/20 20 03/16/2020 urina lysis panel , auto Unknown Analyte Negati ve Not Available [facility] With [address], [place], [address], 03/16/2020 13:26:31 03/16/20 20 03/16/2020 urina lysis panel , auto Unknown Analyte Negati ve Not Available [facility] [address], [place], [address], 03/16/2020 13:26:31 03/16/20 20 03/16/2020 urina lysis panel , auto Unknown Analyte Negati ve Not Available [facility] With [address], [place], [address], 03/16/2020 13:26:31 03/16/20 20 03/16/2020 urina lysis panel , auto Unknown Analyte Negati ve Not Available [facility] With [address], [place], [address], 03/16/2020 13:26:31 03/08/20 21 03/08/2021 urina lysis panel , auto Unknown Analyte Clean Catch Not Available [facility] [address], [place], [address], 03/08/2021 16:15:00 03/08/20 21 03/08/2021 urina lysis panel , auto Unknown Analyte Yellow Not Available [facility] With [address], [place], [address], 03/08/2021 16:15:00 03/08/20 21 03/08/2021 urina lysis panel , auto Unknown Analyte Clear Not Available [facility] [address], [place], [address], 03/08/2021 16:15:00 03/08/20 21 03/08/2021 urina lysis panel , auto Unknown Analyte 1.015 Not Available [facility] With [address], [place], [address], 03/08/2021 16:15:00 03/08/20 21 03/08/2021 urina lysis panel , auto Unknown Analyte 1.003- 1.035 Not Available [facility] [address], [place], [address], 03/08/2021 16:15:00 03/08/20 21 03/08/2021 urina lysis panel , auto Unknown Analyte 5.0 Not Available [facility] With [address], [place], [address], 03/08/2021 16:15:00 03/08/20 21 03/08/2021 urina lysis panel , auto Unknown Analyte 5.0-8. 0 Not Available [facility] With [address] [place], [place], [address], 03/08/2021 16:15:00 03/08/20 21 03/08/2021 urina lysis panel , auto Unknown Analyte Negati ve Not Available [facility] With [address] [place], [place], [address], 03/08/2021 16:15:00 03/08/20 21 03/08/2021 urina lysis panel , auto Unknown Analyte Negati ve Not Available [facility] [address], [place], [address], 03/08/2021 16:15:00 03/08/20 21 03/08/2021 urina lysis panel , auto Unknown Analyte Negati ve Not Available [facility] [address], [place], [address], 03/08/2021 16:15:00 03/08/20 21 03/08/2021 urina lysis panel , auto Unknown Analyte Negati ve Not Available [facility] [address], [place], [address], 03/08/2021 16:15:00 03/08/20 21 03/08/2021 urina lysis panel , auto Unknown Analyte Negati ve Not Available [facility] [address], [place], [address], 03/08/2021 16:15:00 03/08/20 21 03/08/2021 urina lysis panel , auto Unknown Analyte Negati ve Not Available [facility] [address], [place], [address], 03/08/2021 16:15:00 03/08/20 21 03/08/2021 urina lysis panel , auto Unknown Analyte 250 mg/dl Not Available [facility] [address], [place], [address], 03/08/2021 16:15:00 03/08/20 21 03/08/2021 urina lysis panel , auto Unknown Analyte Normal Not Available [facility] [address], [place], [address], 03/08/2021 16:15:00 03/08/20 21 03/08/2021 urina lysis panel , auto Unknown Analyte Negati ve Not Available [facility] [place] [address], [place], [address], 03/08/2021 16:15:00 03/08/20 21 03/08/2021 urina lysis panel , auto Unknown Analyte Negati ve Not Available [facility] [place] [address], [place], [address], 03/08/2021 16:15:00 03/08/20 21 03/08/2021 urina lysis panel , auto Unknown Analyte Normal Not Available [facility] [address], [place], [address], 03/08/2021 16:15:00 03/08/20 21 03/08/2021 urina lysis panel , auto Unknown Analyte Normal 1 mg/dl Not Available [facility] With [address], [place], [address], 03/08/2021 16:15:00 03/08/20 21 03/08/2021 urina lysis panel , auto Unknown Analyte Negati ve Not Available [facility] With [address], [place], [address], 03/08/2021 16:15:00 03/08/20 21 03/08/2021 urina lysis panel , auto Unknown Analyte Negati ve Not Available [facility] With [address], [place], [address], 03/08/2021 16:15:00 03/08/20 21 03/08/2021 urina lysis panel , auto Unknown Analyte Negati ve Not Available [facility] [address], [place], [address], 03/08/2021 16:15:00 03/08/20 21 03/08/2021 urina lysis panel , auto Unknown Analyte Negati ve Not Available [facility] With [address], [place], [address], 03/08/2021 16:15:00 03/14/20 22 03/14/2022 URINE CULTU RE results Sour e: CCUR Colle cted: 03/14 13:42 Site: Recei clara : 03/14 19:41 URINE CULTU RE FINAL 03/16 12:05 03/16 No growt h day 2. Not Available [facility] [address] [facility], [place], [address], 03/16/2022 12:05:48 03/14/20 22 03/14/2022 urina lysis panel , auto Unknown Analyte Clean Catch Not Available [facility] With [address], [place], [address], 03/14/2022 13:34:05 03/14/20 22 03/14/2022 urina lysis panel , auto Unknown Analyte Yellow Not Available [facility] With [address], [place], [address], 03/14/2022 13:34:05 03/14/20 22 03/14/2022 urina lysis panel , auto Unknown Analyte Clear Not Available [facility] [address], [place], [address], 03/14/2022 13:34:05 03/14/20 22 03/14/2022 urina lysis panel , auto Unknown Analyte 1.025 Not Available [facility] With [address], [place], [address], 03/14/2022 13:34:05 03/14/20 22 03/14/2022 urina lysis panel , auto Unknown Analyte 1.003- 1.035 Not Available [facility] [address], [place], [address], 03/14/2022 13:34:05 03/14/20 22 03/14/2022 urina lysis panel , auto Unknown Analyte 5.0 Not Available [facility] [address], [place], [address], 03/14/2022 13:34:05 03/14/20 22 03/14/2022 urina lysis panel , auto Unknown Analyte 5.0-8. 0 Not Available [facility] [place] [address], [place], [address], 03/14/2022 13:34:05 03/14/20 22 03/14/2022 urina lysis panel , auto Unknown Analyte Negati ve Not Available [facility] [address], [place], [address], 03/14/2022 13:34:05 03/14/20 22 03/14/2022 urina lysis panel , auto Unknown Analyte Negati ve Not Available [facility] [address], [place], [address], 03/14/2022 13:34:05 03/14/20 22 03/14/2022 urina lysis panel , auto Unknown Analyte Negati ve Not Available [facility] [place] [address], [place], [address], 03/14/2022 13:34:05 03/14/20 22 03/14/2022 urina lysis panel , auto Unknown Analyte Negati ve Not Available [facility] [place] [address], [place], [address], 03/14/2022 13:34:05 03/14/20 22 03/14/2022 urina lysis panel , auto Unknown Analyte 30 mg/dl (+) Not Available [facility] [address], [place], [address], 03/14/2022 13:34:05 03/14/20 22 03/14/2022 urina lysis panel , auto Unknown Analyte Negati ve Not Available [facility] [place] [address], [place], [address], 03/14/2022 13:34:05 03/14/20 22 03/14/2022 urina lysis panel , auto Unknown Analyte 100 mg/dl Not Available [facility] [place] [address], [place], [address], 03/14/2022 13:34:05 03/14/20 22 03/14/2022 urina lysis panel , auto Unknown Analyte Normal Not Available [facility] [address], [place], [address], 03/14/2022 13:34:05 03/14/20 22 03/14/2022 urina lysis panel , auto Unknown Analyte 15 mg/dl (Sm) Not Available [facility] [address], [place], [address], 03/14/2022 13:34:05 03/14/20 22 03/14/2022 urina lysis panel , auto Unknown Analyte Negati ve Not Available [facility] [place] [address], [place], [address], 03/14/2022 13:34:05 03/14/20 22 03/14/2022 urina lysis panel , auto Unknown Analyte 1 mg/dl Not Available [facility] [address], [place], [address], 03/14/2022 13:34:05 03/14/20 22 03/14/2022 urina lysis panel , auto Unknown Analyte Normal 1 mg/dl Not Available [facility] [address], [place], [address], 03/14/2022 13:34:05 03/14/20 22 03/14/2022 urina lysis panel , auto Unknown Analyte Negati ve Not Available [facility] [place] [address], [place], [address], 03/14/2022 13:34:05 03/14/20 22 03/14/2022 urina lysis panel , auto Unknown Analyte Negati ve Not Available [facility] [place] [address], [place], [address], 03/14/2022 13:34:05 03/14/20 22 03/14/2022 urina lysis panel , auto Unknown Analyte Negati ve Not Available [facility] [address], [place], [address], 03/14/2022 13:34:05 03/14/20 22 03/14/2022 urina lysis panel , auto Unknown Analyte Negati ve Not Available [facility] [address], [place], [address], 03/14/2022 13:34:05 03/20/20 23 03/20/2023 urina lysis panel , auto Unknown Analyte Clean Catch Not Available [facility] [address], [place], [address], 03/20/2023 14:05:32 03/20/20 23 03/20/2023 urina lysis panel , auto Unknown Analyte Yellow Not Available [facility] [address], [place], [address], 03/20/2023 14:05:32 03/20/20 23 03/20/2023 urina lysis panel , auto Unknown Analyte Clear Not Available [facility] [address], [place], [address], 03/20/2023 14:05:32 03/20/20 23 03/20/2023 urina lysis panel , auto Unknown Analyte 1.020 Not Available [facility] [address], [place], [address], 03/20/2023 14:05:32 03/20/20 23 03/20/2023 urina lysis panel , auto Unknown Analyte 1.003- 1.035 Not Available [facility] [place] [address], [place], [address], 03/20/2023 14:05:32 03/20/20 23 03/20/2023 urina lysis panel , auto Unknown Analyte 5.0 Not Available [facility] With [address], [place], [address], 03/20/2023 14:05:32 03/20/20 23 03/20/2023 urina lysis panel , auto Unknown Analyte 5.0-8. 0 Not Available [facility] With [address], [place], [address], 03/20/2023 14:05:32 03/20/20 23 03/20/2023 urina lysis panel , auto Unknown Analyte Negati ve Not Available [facility] With [address], [place], [address], 03/20/2023 14:05:32 03/20/20 23 03/20/2023 urina lysis panel , auto Unknown Analyte Negati ve Not Available [facility] [address], [place], [address], 03/20/2023 14:05:32 03/20/20 23 03/20/2023 urina lysis panel , auto Unknown Analyte Negati ve Not Available [facility] [address], [place], [address], 03/20/2023 14:05:32 03/20/20 23 03/20/2023 urina lysis panel , auto Unknown Analyte Negati ve Not Available [facility] [address], [place], [address], 03/20/2023 14:05:32 03/20/20 23 03/20/2023 urina lysis panel , auto Unknown Analyte 30 mg/dl (+) Not Available [facility] [address], [place], [address], 03/20/2023 14:05:32 03/20/20 23 03/20/2023 urina lysis panel , auto Unknown Analyte Negati ve Not Available [facility] [address], [place], [address], 03/20/2023 14:05:32 03/20/20 23 03/20/2023 urina lysis panel , auto Unknown Analyte Normal Not Available [facility] [address], [place], [address], 03/20/2023 14:05:32 03/20/20 23 03/20/2023 urina lysis panel , auto Unknown Analyte Normal Not Available [facility] [address], [place], [address], 03/20/2023 14:05:32 03/20/20 23 03/20/2023 urina lysis panel , auto Unknown Analyte 15 mg/dl (Sm) Not Available [facility] [address], [place], [address], 03/20/2023 14:05:32 03/20/20 23 03/20/2023 urina lysis panel , auto Unknown Analyte Negati ve Not Available [facility] [address], [place], [address], 03/20/2023 14:05:32 03/20/20 23 03/20/2023 urina lysis panel , auto Unknown Analyte Normal Not Available [facility] [address], [place], [address], 03/20/2023 14:05:32 03/20/20 23 03/20/2023 urina lysis panel , auto Unknown Analyte Normal 1 mg/dl Not Available [facility] With [address], [place], [address], 03/20/2023 14:05:32 03/20/20 23 03/20/2023 urina lysis panel , auto Unknown Analyte Negati ve Not Available [facility] With [address], [place], [address], 03/20/2023 14:05:32 03/20/20 23 03/20/2023 urina lysis panel , auto Unknown Analyte Negati ve Not Available [facility] [address], [place], [address], 03/20/2023 14:05:32 03/20/20 23 03/20/2023 urina lysis panel , auto Unknown Analyte Negati ve Not Available [facility] [address], [place], [address], 03/20/2023 14:05:32 03/20/20 23 03/20/2023 urina lysis panel , auto Unknown Analyte Negati ve Not Available [facility] [address], [place], [address], 03/20/2023 14:05:32 04/01/20 24 04/01/2024 urina lysis panel , auto Unknown Analyte Clean Catch Not Available [facility] [address], [place], [address], 04/01/2024 12:45:40 04/01/20 24 04/01/2024 urina lysis panel , auto Unknown Analyte Yellow Not Available [facility] [address], [place], [address], 04/01/2024 12:45:40 12/26/04/01/2024 urina lysis panel , auto Unknown Analyte Clear Not Available [facility] With [address], [place], [address], 04/01/2024 12:45:40 04/01/20 24 04/01/2024 urina lysis panel , auto Unknown Analyte 1.015 Not Available [facility] With [address], [place], [address], 04/01/2024 12:45:40 04/01/20 24 04/01/2024 urina lysis panel , auto Unknown Analyte 1.003- 1.035 Not Available [facility] [address], [place], [address], 04/01/2024 12:45:40 04/01/20 24 04/01/2024 urina lysis panel , auto Unknown Analyte 5.0 Not Available [facility] With [address] Darrius Marin, [place], [address], 04/01/2024 12:45:40 04/01/20 24 04/01/2024 urina lysis panel , auto Unknown Analyte 5.0-8. 0 Not Available [facility] With [address], [place], [address], 04/01/2024 12:45:40 04/01/20 24 04/01/2024 urina lysis panel , auto Unknown Analyte Negati ve Not Available [facility] With [address], [place], [address], 04/01/2024 12:45:40 04/01/20 24 04/01/2024 urina lysis panel , auto Unknown Analyte Negati ve Not Available [facility] With [address], [place], [address], 04/01/2024 12:45:40 04/01/20 24 04/01/2024 urina lysis panel , auto Unknown Analyte Negati ve Not Available [facility] With [address], [place], [address], 04/01/2024 12:45:40 04/01/20 24 04/01/2024 urina lysis panel , auto Unknown Analyte Negati ve Not Available [facility] With [address], [place], [address], 04/01/2024 12:45:40 04/01/2004/01/2024 urina lysis panel , auto Unknown Analyte 100 mg/dl (++) Not Available [facility] With [address], [place], [address], 04/01/2024 12:45:40 04/01/20 24 04/01/2024 urina lysis panel , auto Unknown Analyte Negati ve Not Available [facility] With [address], [place], [address], 04/01/2024 12:45:40 04/01/20 24 04/01/2024 urina lysis panel , auto Unknown Analyte >1000 mg/dl Not Available [facility] With [address], [place], [address], 04/01/2024 12:45:40 04/01/20 24 04/01/2024 urina lysis panel , auto Unknown Analyte Normal Not Available [facility] With [place] [address] [address], [place], [address], 04/01/2024 12:45:40 04/01/20 24 04/01/2024 urina lysis panel , auto Unknown Analyte Negati ve Not Available [facility] With [place] [address] [address], [place], [address], 04/01/2024 12:45:40 04/01/20 24 04/01/2024 urina lysis panel , auto Unknown Analyte Negati ve Not Available [facility] With [address] Darrius Marin, [place], [address], 04/01/2024 12:45:40 04/01/20 24 04/01/2024 urina lysis panel , auto Unknown Analyte Normal Not Available [facility] With [address] Darrius Marin, [place], [address], 04/01/2024 12:45:40 04/01/2004/01/2024 urina lysis panel , auto Unknown Analyte Normal 1 mg/dl Not Available [facility] With [address] Darrius Marin, [place], [address], 04/01/2024 12:45:40 04/01/20 24 04/01/2024 urina lysis panel , auto Unknown Analyte Negati ve Not Available [facility] With [address], [place], [address], 04/01/2024 12:45:40 04/01/20 24 04/01/2024 urina lysis panel , auto Unknown Analyte Negati ve Not Available [facility] With [address], [place], [address], 04/01/2024 12:45:40 04/01/20 24 04/01/2024 urina lysis panel , auto Unknown Analyte 50 Davis/ul Not Available [facility] With [address], [place], [address], 04/01/2024 12:45:40 04/01/20 24 04/01/2024 urina lysis panel , auto Unknown Analyte Negati ve Not Available [facility] With [address], [place], [address], 04/01/2024 12:45:40 Result Notes None recorded. Problems Name Problem SNOMED Code Status Onset Date Resolution Date Notes Provider Name and Address Organization Details Recorded Time Malignant neoplasm of prostate 384265076 Active 2014 Provide r: Jason Witt ;Status : Active Not Available [facility] 6 04:42:34 Problem Notes None recorded. Procedures Surgical History Date Name Laterality Status Provider Name and Address Organization Details Recorded Time Hernia Repair completed [facility] 03/11/2019 16:41:[address] [facility] 03/11/2019 16:41:25 Imaging Results None recorded. Procedure Notes None recorded. Medical Equipment None Reported. Allergies Allergen ID Allergen Name Allergen Category Reaction Reaction Severity Criticality Documentation Date Start Date Code Code System Note Provider Name and Address Organization Details Recorded Time 402729 latex environme nt,medica tion Not available Not available Not available 03/11/2019 78297 91 [facility]Norm [facility] 9 16:42:27 Medications Name Sig Start Date [...] Updated DateTime 03/08/2021 182.88 cm 30.5 kg/m2 905846.[address] [facility] 03/08/2021 16:08:12 Date Recorded Body height Body mass index (BMI) Body weight Provider Name and Address Organization Details Last Updated DateTime 03/14/2022 182.88 cm 30.5 kg/m2 474940.28 g Ananth [facility] 03/14/2022 13:12:49 Date Recorded Body height Body mass index (BMI) Body weight Body temperature Provider Name and Address Organization Details Last Updated DateTime 03/16/2020 182.88 cm 30.5 kg/m2 846830.28 g 97.3 [degF] [facility] 03/16/2020 13:25:58 Date Recorded Body height Body mass index (BMI) Body weight Provider Name and Address Organization Details Last Updated DateTime 03/20/2023 182.88 cm 30.5 kg/m2 339738.28 g Ananth Bennett [facility] 03/20/2023 13:59:42 Date Recorded Body height Body mass index (BMI) Body weight Provider Name and Address Organization Details Last Updated DateTime 04/01/2024 182.88 cm 29.2 kg/m2 50282.36 paulette Guajardo [facility] 04/01/2024 12:50:31 Social History Question Answer Notes LastModified by Organizat ion Details LastModified Time Tobacco Smoking Status Current Every Day Smoker Gaudenciofernando Levy [facility] 03/11/2019 16:40:32 Marital Status lela 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[employer] [...] available 2018 16:40:28 Medical History Condition Response Allergies/Hayfever Y Chronic Obstructive Pulmonary Disease Y Diabetes Y Arthritis Y Hypertension Y Past Encounters Encounter ID Performer Location Encounter Start Date Encounter Closed Date Diagnosis/Indication Diagnosis SNOMED-CT Code Diagnosis ICD10 Code Diagnosis IMO Codes Diagnosis Note [id number] MD [facility] [address] [address] 03/11/2019 15:31:08 04/06/2019 10:37:33 Spermatocele 64654547 N43.40 [id number] MD [facility] [address],[place] [address] 09/16/2019 12:32:59 09/16/2019 13:20:40 Prostate specific antigen outside reference range 092715245 R97.20 N40.2 N40.3 [id number] JOSHUA MCDERMOTT MD [facility] [address],[place] [address] 8 03/16/2020 13:04:57 03/17/2020 15:07:29 History of malignant neoplasm of prostate 338770416 Z85.46 [id number] JOSHUA MCDERMOTT MD [facility] [address],[place] [address] 8 03/08/2021 15:17:23 03/09/2021 15:02:39 History of malignant neoplasm of prostate 903190300 Z85.46 Stress inc ontinence after prostatectomy 642471211 N39.3 [id number] JOSHUA MCDERMOTT MD [facility] [address],[place] [address] 8 03/14/2022 13:09:06 03/22/2022 12:54:09 Urinary tract infectious disease 87143741 N39.0 History of malignant neoplasm of prostate 907685366 Z85.46 Stress inc ontinence after prostatectomy 558226574 N39.3 [id number] JOSHUA MCDERMOTT MD [facility] [address],[place] [address] 8 03/20/2023 13:48:37 03/20/2023 14:21:00 Urinary tract infectious disease 21935089 N39.0 History of malignant neoplasm of prostate 793584177 Z85.46 Stress inc ontinence after prostatectomy 973711914 N39.3 [id number] JOSHUA MCDERMOTT MD [facility] [address],[place] [address] 8 04/01/2024 12:42:19 04/01/2024 16:46:06 History of malignant neoplasm of prostate 409280144 Z85.46 Health Concerns Section Related Observation LastModified by Organization Detai ls LastModified Time None Recorded Concern Status LastModified by Organization Details LastModified Time None Recorded Advance Directives Directive None Recorded Payers Insurance Date Sequence Insurance Name Policy Number Policy Adkins Covered Member ID Adkins Member ID Guarantor Name 06/15/2024 2 [place] [id number] Kirby Carroll Christiano [id number] Christiano 04/02/2024 2 [place] [id number] Roberto Carroll Christiano [id number] Kirby Carroll Christiano 06/07/2024 1 [place] Kirby Crenshawp [id number] Kirby Carroll Christiano 04/02/2024 2 [place] [id number] Kirby Carroll Christiano [id number] Kirby Carroll Christiano 04/02/2024 2 [place]MEDICARE REPLACEMENT REGIONAL PPO) Kirby Crenshawp [id number] Kirby Carroll Christiano Notes Date Note [...] times daily without nocturia. JOSHUA MCDERMOTT MD [address] [place] [address], [address], [facility] 03/19/2020 18:09:39 03/08/2021 text/html 71-year-old male in the office for follow-up evaluation of adenocarcinoma of the prostate status post robotic assisted laparoscopic radical prostatectomy in 2014. He has occasional post prostatectomy incontinence. No hematuria or dysuria. He voids 4 or 5 times daily without nocturia. JOSHUA MCDERMOTT MD [address] [place] [address], [address], [facility] 03/09/2021 07:00:04 03/14/2022 text/html 72-year-old male in the office for follow-up evaluation of adenocarcinoma of the prostate status post robotic assisted laparoscopic radical prostatectomy in 2014. He has occasional post prostatectomy incontinence. He reports increase leakage, he goes through 2 pads today. He reports kidney function is worsening. We encouraged following up with his starch dumper. No gross hematuria or dysuria. JOSHUA MCDERMOTT MD [address] [place] [address], [address], [facility] 03/17/2022 11:12:24 03/20/2023 text/html 73-year-old male in the office for follow-up evaluation of adenocarcinoma of the prostate status post robotic assisted laparoscopic radical prostatectomy in 2014. He has occasional post prostatectomy incontinence, 1 pad per day. No hesitancy. Occasional urgency. Daytime frequency 3-4 times. No nocturia. No gross hematuria. No dysuria. JOSHUA MCDERMOTT MD [address] [place] [address] [place], [address], [facility] 03/23/2023 11:01:16 04/01/2024 text/html 74-year-old male [...] urge incontinence, no nocturia. JOSHUA MCDERMOTT MD [address] [place] [address], [address], [facility] 04/02/2024 10:41:18
--- OUTSIDE RECORDS SUMMARY | 2025-01-06 06:45 | XMS_ITS | Encounter Summary ---
Author Organization [facility] Address [address] [place] [address] Care Team Providers Care Chief Nursing Officer Name Role Phone Otilio Menendez MD Primary Care Provider +1- [phone] Encounter Details Date Type Department Care Team (Latest Contact Info) Description 11/25/2024 Travel Social History Tobacco Use Types Packs/Day Years Used Date Smoking Tobacco: Every Day Cigarettes 1.5 62.8 Started: 1963 Passive Smoke Exposure: Current Smokeless Tobacco: Never Alcohol Use Standard Drinks/Week Comments Not Currently 0 (1 standard drink = 0.6 oz pur e alcohol) [facility] Utilities Answer Date Recorded In the past 12 months has [employer], gas, oil, or water [employer] threatened to shut off services in your [...] GED or equivalent No 11/19/2024 Preferred Language Belizean 11/19/2024 Sex and Gender Information Value Date [...] 8:50 AM EDT Abby Bernard RN * [place] Suicide Severity Rating Scale (Screener/Recent Self-Report) Question Answer Date of Assessment Author 6. Suicidal Behavior (Lifetime) No 8:50 AM EDT Abby Bernard RN documented as of this encounter Plan of Treatment Upcoming Encounters Date Type Department Care Team (Late st Contact Info) Description 02/28/2025 11:00 AM EST Office Visit [facility] [address] [facility] [address] [address] [facility] [address] [place] [address] Mark Guerra, DO [address] [place], [place] [id number] 06/06/2025 10:30 AM EST Office Visit [facility] [address] [facility] [address] [place] [address] Kirby Stack PA [address] [place] [address] 12/05/2025 11:30 AM EDT Office Visit [facility] [address] [facility] [address] [place] [address] Mark Guerra, DO [address] [place] [address] documented as of this encounter Visit Diagnoses Not on filedocumented in this encounter Care Teams Chief Nursing Officer Relationship Specialty Start Date End Date Otilio Menendez MD [address] [place] [address] PCP - General Family Medicine 10/29/22 documented as of this encounter
--- OUTSIDE RECORDS SUMMARY | 2025-01-06 06:45 | XMS_ITS ---
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
--- OUTSIDE RECORDS SUMMARY | 2025-01-06 06:45 | XMS_ITS | Encounter Summary ---
Author Organization [facility] Address [address] [place] [address] Care Team Providers Care Relay Shop Tester Name Role Phone Otilio Menendez MD Primary Care Provider +1- [phone] Encounter Details Date Type Department Care Team [...] Recorded In the past 12 months has [employer], gas, oil, or water [employer] threatened to shut off services in your [...] GED or equivalent No 11/19/2024 Preferred Language Polish 11/19/2024 Sex and Gender Information Value Date Recorded Sex Assigned at Not on file Legal Sex Male 11:07 AM EDT Gender Identity Not on file Sexual Orientation Not on file documented as of this encounter Plan of Treatment Upcoming Encounters Date Type Department Care Team (Late st Contact Info) Description 02/28/2025 11:00 AM EST Office Visit [facility] CARDIOLOGY [address] [place] [address] Mark Guerra, DO [address] [place] [address] 06/06/2025 10:30 AM EST Office Visit [facility] [address] [facility] [address] [place] [address] Kirby Stack PA [address] [place], [place] [address] 12/05/2025 11:30 AM EDT Office Visit [facility] [address] [facility] [address] [place] [address] Mark Guerra DO [address] [facility] [address] [place] [address] documented as of this encounter Visit Diagnoses Not on filedocumented in this encounter Care Teams Relay Shop Tester Relationship Specialty Start Date End Date Otilio Menendez MD [address] [place] [id number] PCP - General Family Medicine 10/29/22 documented as of this encounter
--- OUTSIDE RECORDS SUMMARY | 2025-01-06 06:45 | XMS_ITS | Encounter Summary ---
Author Organization [facility] Address [address] [place] [address] Care Team Providers Care Housekeeping Associate Name Role Phone Otilio Menendez MD Primary Care Provider +1- [phone] Encounter Details Date Type Department Care Team ([facility] Contact Info) Description 11/24/2024 Telephone [facility] [address] [facility] [address] [place] [address] Mirta Gonzáles RN Social History Tobacco Use Types Packs/Day Years Used Date Smoking Tobacco: Every Day Cigarettes 1.5 62.8 Started: 1963 Passive Smoke Exposure: Current Smokeless Tobacco: Never Alcohol Use Standard Drinks/Week Comments Not Currently 0 (1 standard drink = 0.6 oz pur e alcohol) [facility] Utilities Answer Date Recorded In the past 12 months has [employer], gas, oil, or water [employer] threatened to shut off services in your [...] GED or equivalent No 11/19/2024 Preferred Language Palauan 11/19/2024 Sex and Gender Information Value Date [...] If patient calls back, please transfer to [phone] * Telephone Encounter - Mirta Gonzáles RN [...] 02/28/2025 11:00 AM EST Office Visit [facility] [address] [place] [address] Mark Guerra, DO [address] [place] [address] 06/06/2025 10:30 AM EST Office Visit [facility] [address] [facility] [address] [place] [address] Kirby Stack PA [address] [facility] [address] [place] [address] 12/05/2025 11:30 AM EDT Office Visit [facility] [address] [place] [address] Mark Guerra, DO [address] [place] [address] documented as of this encounter Visit Diagnoses Not on filedocumented in this encounter Care Teams Housekeeping Associate Relationship Specialty Start Date End Date Otilio Menendez MD [address] [place] [address] PCP - General Family Medicine 10/29/22 documented as of this encounter
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
--- OUTSIDE RECORDS SUMMARY | 2025-01-06 06:46 | XMS_ITS | Encounter Summary ---
[facility] Address [address] [place] [address] Care Team Providers Care Validation Software Facilitator Name Role Phone Otilio Menendez MD Primary Care Provider +1- [phone] Reason for Visit * Reason Onset Date Comments PCI/Device 11/26/2024 Encounter Details Date Type Department Care Team ([facility] Contact Info) Description 11/26/2024 Call Center Programs [facility] NURSE CALL CENTER [address] [place] [address] Sue Harrell RN Social History Tobacco Use Types Packs/Day Years Used Date Smoking Tobacco: Every Day Cigarettes 1.5 62.8 Started: 1963 Passive Smoke Exposure: Current Smokeless Tobacco: Never Alcohol Use Standard Drinks/Week Comments Not Currently 0 (1 standard drink = 0.6 oz pur e alcohol) [facility] Utilities Answer Date Recorded In the past 12 months has [employer], gas, oil, or water [employer] threatened to shut off services in your [...] GED or equivalent No 11/19/2024 Preferred Language Monegasque 11/19/2024 Sex and Gender Information Value Date Recorded Sex Assigned at Not on file Legal Sex Male 11:07 AM EDT Gender Identity Not on file Sexual Orientation Not on file documented as of this encounter Miscellaneous Notes * Outreach Note - Sue Harrell RN - 11/26/2024 10:30 AM EDT PCI/Device Survey Flowsheet Row Responses Facility patient discharged from? [place] Procedure date 11/25/24 Procedure (if device, specify in description) Ablation Performing MD Dr. Mark Guerra Attempt successful? No Unsuccessful attempts Attempt 1 Sue Mcmullen - Registered Nurse documented in this encounter Plan of Treatment Upcoming Encounters Date Type Department Care Team (Late st Contact Info) Description 02/28/2025 11:00 AM EST Office Visit [facility] [address] [place] [address] Mark Guerra, [address] [place] [address] 06/06/2025 10:30 AM EST Office Visit [facility] [address] [facility] [place] [address] Kirby Stack PA [address] [place] [address] 12/05/2025 11:30 AM EDT Office Visit [facility] [address] [facility] [place] [address] Mark Guerra DO [address] [place] [address] documented as of this encounter Visit Diagnoses Not on filedocumented in this encounter Care Teams Validation Software Facilitator Relationship Specialty Start Date End Date Otilio Menendez MD [address] [place] [address] PCP - General Family Medicine 10/29/22 documented as of this encounter
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
--- OUTSIDE RECORDS SUMMARY | 2025-01-06 06:46 | XMS_ITS | Encounter Summary ---
[facility] Organization [facility] Address [address] [place] [address] Care Team Providers Care Navy Material Inspector Name Role Phone Otilio Menendez MD Primary Care Provider +1- [phone] Reason for Visit * Reason Onset Date Comments Hypertension 12/20/2024 Encounter Details Date Type Department Care Team ([facility] Contact Info) Description 12/20/2024 Telephone [facility] CARDIOLOGY [address] [place] [address] [address] [place] [address] Erik Dailey, RN Hypertension Social History Tobacco Use Types Packs/Day Years Used Date Smoking Tobacco: Every Day Cigarettes 1.5 62.8 Started: 1963 Passive Smoke Exposure: Current Smokeless Tobacco: Never Alcohol Use Standard Drinks/Week Comments Not Currently 0 (1 standard drink = 0.6 oz pur e alcohol) [facility] Utilities Answer Date Recorded In the past 12 months has [employer], gas, oil, or water [employer] threatened to shut off services in your [...] GED or equivalent No 11/19/2024 Preferred Language Iraqi 11/19/2024 Sex and Gender Information Value Date [...] Visit [facility] [address] [facility] [address] [place] [address] Mark Guerra DO [address] [place] [address] 06/06/2025 10:30 AM EST Office Visit [facility] [address] [facility] [address] [place] [address] Kirby Stack PA [address] [place] [address] 12/05/2025 11:30 AM EDT Office Visit [facility] C[facility] [address] [place] [address] Mark Guerra, DO [address] [place] [address] documented as of this encounter Visit Diagnoses Not on filedocumented in this encounter Care Teams Navy Material Inspector Relationship Specialty Start Date End Date Otilio Menendez MD [address] [place] [address] PCP - General Family Medicine 10/29/22 documented as of this encounter
--- OUTSIDE RECORDS SUMMARY | 2025-01-06 06:46 | XMS_ITS | Encounter Summary ---
[facility] Address [address] [place] [address] Care Team Providers Care Python Web Developer Name Role Phone Otilio Menendez MD Primary Care Provider +1- [phone] Reason for Visit * Reason Onset Date Comments PCI/Device 11/26/2024 Encounter Details Date Type Department Care Team ([facility] Contact Info) Description 11/26/2024 Call Center Programs [facility] NURSE CALL CENTER [address] [place] [address] Sue Harrell RN Social History Tobacco Use Types Packs/Day Years Used Date Smoking Tobacco: Every Day Cigarettes 1.5 62.8 Started: 1963 Passive Smoke Exposure: Current Smokeless Tobacco: Never Alcohol Use Standard Drinks/Week Comments Not Currently 0 (1 standard drink = 0.6 oz pur e alcohol) [facility] Utilities Answer Date Recorded In the past 12 months has [employer], gas, oil, or water [employer] threatened to shut off services in your [...] GED or equivalent No 11/19/2024 Preferred Language Macanese 11/19/2024 Sex and Gender Information Value Date [...] Flowsheet Row Responses Facility patient discharged from? [place] Procedure date 11/25/24 Procedure (if device, specify [...] patient have an appointment scheduled with the glory hole tender? Yes If the patient is a current [...] Visit [facility] [address] [facility] [address] [place] [address] Mark Guerra DO [address] [facility] [address] [place] [address] 06/06/2025 10:30 AM EST Office Visit [facility] [address] [facility] [address] [place] [address] Kirby Stack PA [address] [facility] [address] [place] [address] 12/05/2025 11:30 AM EDT Office Visit [facility] C[facility]IOLOG[facility] [address] [place] [address] Mark Guerra DO [address] [place] [address] documented as of this encounter Visit Diagnoses Not on filedocumented in this encounter Care Teams Python Web Developer Relationship Specialty Start Date End Date Otilio Menendez MD [address] [place] [address] PCP - General Family Medicine 10/29/22 documented as of this encounter
--- OUTSIDE RECORDS SUMMARY | 2025-01-06 06:46 | XMS_ITS | Encounter Summary ---
[facility] Address [address] [place] [address] Care Team Providers Care Correctional Guard Name Role Phone Otilio Menendez MD Primary Care Provider +1- [phone] Reason for Visit * Reason Onset Date Comments Hypertension 11/29/2024 Encounter Details Date Type Department Care Team ([facility] Contact Info) Description 11/29/2024 Telephone [facility] CARDIOLOGY [address] [place] [address] [address] [place] [address] Erik Dailey, RN Hypertension Social History Tobacco Use Types Packs/Day Years Used Date Smoking Tobacco: Every Day Cigarettes 1.5 62.8 Started: 1963 Passive Smoke Exposure: Current Smokeless Tobacco: Never Alcohol Use Standard Drinks/Week Comments Not Currently 0 (1 standard drink = 0.6 oz pur e alcohol) [facility] Utilities Answer Date Recorded In the past 12 months has e [employer], gas, oil, or water [employer] threatened to shut off services in your [...] GED or equivalent No 11/19/2024 Preferred Language Mongolian 11/19/2024 Sex and Gender Information Value Date [...] Description 02/28/2025 11:00 AM EST Office Visit [facility] C[facility]IOLOG[facility] [address] [facility] [address] [place] [address] Mark Guerra DO [address] [facility] [address] [place] [address] 06/06/2025 10:30 AM EST Office Visit [facility] [address] [facility] [address] [place] [address] Kirby Stack PA [address] [facility] [address] [place] [address] 12/05/2025 11:30 AM EDT Office Visit [facility] C[facility]IOLOG[facility] [address] [address] [address] [place] [address] Mark Guerra, DO [address] [place] [address] documented as of this encounter Visit Diagnoses Not on filedocumented in this encounter Care Teams Correctional Guard Relationship Specialty Start Date End Date Otilio Menendez MD [address] [place] [address] PCP - General Family Medicine 10/29/22 documented as of this encounter
--- OUTSIDE RECORDS SUMMARY | 2025-01-06 06:46 | XMS_ITS | Clinical Summary ---
Author Organization [facility] Address [address] [place] [address] Care Team Providers Care Hamper Maker Machine Name Role Phone Otilio Menendez MD Primary Care Provider +1- [phone] Allergies Active Allergy Reactions Criticality Noted Date [...] 2 (Two) Times a Day. 14 capsule 9:43 AM EDT 08/26/19 Active Toprol XL 200 MG 24 hr tablet Take 1 tablet by mouth 2 (Two) Times a Day. 180 tablet 1 11/30/19 25 Active dilTIAZem CD (CARDIZEM CD) 240 MG 24 hr capsule Take 1 capsule by mouth Daily. 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 10/29/2022 Essential hypertension 10/29/2022 Hyperlipidemia LDL goal <100 10/29/2022 Malignant tumor of prostate 01/30/2015 Overview (10/29/2022): Provider: Jason Witt;Status: Active Resolved Problems Problem Noted Date Diagnosed Date Resolved Date Torn Achilles tendon 08/06/2023 024 Gastritis 12/11/2022 02/04/2024 Encounters Date Type Department Care Team Description 12/20/2024 Telephone [facility] CARDIOLOGY [address] [place] [address] [address] [place] [address] Mirta Gonzáles, RN Hypertension 12/09/2024 12:47 PM EDT - 12/09/2024 11:59 PM EDT Hospital Encounter [facility] [address] [facility] [address] [place] [address] PAF (paroxysmal atrial fibrillation); Typical atrial flutter; Bradycardia Discharge Disposition: Home or Self Care 12/09/2024 12:45 PM EDT Office Visit [facility] CARDIOLOG[facility] [address] [facility] [address] [place] [address] Demetrice Pickard APRN PAF (paroxysmal atrial fibrillation) (Primary Dx); Typical atrial flutter; Essential hypertension; Obstructive sleep apnea syndrome; Obesity (BMI 30.0-34.9); Bradycardia 12/09/2024 Travel 12/07/2024 Telephone [facility] CARDIOLOG[facility] [address] [facility] [address] [place] [address] Mirta Gonzáles, RN post PVA 12/03/2024 Telephone [facility]ARDI[facility] [address] [facility] [address] [place] [address] Donya Davies APRN 11/29/2024 Telephone [facility] [address] [facility] [address] [place] [address] Mirta Gonzáles, RN Hypertension 11/26/2024 Call Center Programs [facility] [address] [place] [address] Sue Harrell, [place] 11/26/2024 Call Center Programs [facility] [address] [place] [phone] Sue Harrell, S[place] 11/26/2024 Telephone [facility] [address] [facility] [address] [place] [address] Mirta Gonzáles, RN Post PVA 11/25/2024 10:23 AM EDT Anesthesia Event [facility] [address] [place] [address] Agustin Castellon MD 11/25/2024 10:10 AM EDT - 11/25/2024 11:10 AM EDT Surgery [facility] [address] [place] [address] Mark Guerra, DO Ablation atrial fibrillation; PFA; Rhythmia General anesthesia Preop CT Do not hold anticoagulation [89866 (CPT ) +8 more] 11/25/2024 8:24 AM EDT - 11/25/2024 3:56 PM EDT Hospital Encounter [facility] [address] [place] [address] Mark Guerra, PAF (paroxysmal atrial fibrillation) Discharge Disposition: Home or Self Care 11/25/2024 Travel 11/24/2024 Telephone [facility] [address] [facility] [address] [place] [address] Mirta Gonzáles RN 11/19/2024 1:19 PM EDT - 11/19/2024 11:59 PM EDT Hospital Encounter [facility] CT AT [address] [place] [address] PAF (paroxysmal atrial fibrillation) Discharge Disposition: Home or Self Care 11/19/2024 12:30 PM EDT Pre-Admission Testing [facility] PREADMISSION T [address] [place] [address] PAF (paroxysmal atrial fibrillation) 11/19/2024 Travel from [...] 0.6 oz pur e alcohol) [facility] Utilities Answer Date Recorded In [...] GED or equivalent No 11/19/2024 Preferred Language Arabic 11/19/2024 Sex and Gender Information Value Date [...] EST Office Visit [facility]IOLOG[facility] [address] [place] [address] Mark Guerra, DO [address] [place] [address] 06/06/2025 10:30 AM EST Office Visit [facility] [address] [facility] [address] [place] [address] Kirby Stack PA [address] [place], [place] [address] 12/05/2025 11:30 AM EDT Office Visit [facility] [address] [facility] [address] [place] [address] Mark Guerra DO [address] [place] [address] Health Maintenance Due Date Last Done Comments [...] 11/19/2025 11/19/2024 Medical Devices Implanted Type Area Education And Training Coordinator Device Identifier Shelf Expiration Date Model / Serial / Lot Clipapplr M/ Endo Ligaclip Rot 10mm /Lg - [id number] Implanted:Qty : 1 on 08/23/2024 by Alfonso Jack MD at [facility] Implant N/A: Abdomen [employer] 02/04/2029 [id number] / / [id number] Hemost Abs Surgicel 2x3 - [id number] Implanted:Qty : 1 on 08/23/2024 by Alfonso Jack MD at [facility] Implant N/A: Stomach [employer] [id number] 11/05/2027 1953 / / [id number] Procedures Procedure Name Priority Date/Time Associated Diagnosis [...] aortic valve sclerosis Coronary artery disease involving kaibab coronary artery of kaibab heart without angina pectoris HM COLONOSCOPY Routine [...] has shortened Confirmed by QUINTIN RAMÍREZ MD ([id number]) on 12/09/2024 3:08:54 PM Referred By: ANNIE [...] has shortened Confirmed by QUINTIN RAMÍREZ MD ([id number]) on 12/09/2024 3:08:54 PM Referred By: ANNIE PICKARD Confirmed By: QUINTIN RAMÍREZ MD us Jessalynn Blanco LEADER TIER ECG ORDERABLES Final Resul t BH ECG * ABLATION A-FIB (11/25/2024 11:23 AM EDT) Anatomical Region Laterality Modality X-Ray Angiograph y Narrative 11/25/2024 11:41 AM EDT Procedure Narrative Cardiac Electrophysiology Procedure Note [facility] CATHETER ABLATION FOR ATRIAL FIBRILLATION (PVI) [...] times throughout the procedure. We used the [employer] 3D electroanatomic mapping system in conjunction with [...] per routine follow up. Mark Guerra, , [facility], [facility] Cardiac Wheel Filler [facility] / [facility] ' Risks, benefits and [...] - 152 Seconds 12/02/2024 5:32 AM EDT [facility] Comment:Serial Number: [id number] 2Operator: [id number] Blood 11/25/2024 11:0 4 AM EDT 12/02/2024 5:32 AM EDT Mark Guerra DO POINT OF CARE TEST ORDERABLES F inal Result [facility]
[address] [place] [address], * BH AN ETT AIRWAY (11/25/2024 10:40 AM EDT) Narrative Leonidas Salcedo CRNA - 11/25/2024 10:40 AM EDT Leonidas Salcedo CRNA 11/25/2024 10:40 AM Airway Reason: elective Date/Time: 11/25/2024 10:35 AM Airway not difficult General Information and Staff Patient location during procedure: OR BLEND TECHNICIAN/CAA: Leonidas Salcedo CRNA Indications and Patient Condition [...] * Telemetry Scan (11/25/2024 9:07 AM EDT) [facility] Onbase ECG ORDERABLES Final Result * CT Angiogram [...] MD 11/19/2024 2:50 PM EDT Workstation ID: [id number] Narrative 11/19/2024 2:[address] ANGIOGRAM [...] MD 11/19/2024 2:50 PM EDT Workstation ID: [id number] JEANNE Perez [facility] ORDERABLES Final Re sult * (ABNORMAL) CBC (No Diff) (11/19/2024 12:12 PM EDT) WBC 13.52(H) 3.40 - 10.80 10*3/mm3 11/19/2024 12:43 PM EDT [facility] RBC 4.82 4.14 - 5.80 10*6/mm3 11/19/2024 12:43 PM EDT [facility] Hemoglobin 15.9 13.0 - 17.7 g/dL 11/19/2024 12:43 PM EDT [facility] Hematocrit 48.2 37.5 - 51.0 % 11/19/2024 12:43 PM EDT [facility] MCV 100.0(H) 79.0 - 97.0 fL 11/19/2024 12:43 PM EDT [facility] MCH 33.0 26.6 - 33.0 pg 11/19/2024 12:43 PM EDT [facility] MCHC 33.0 31.5 - 35.7 g/dL 11/19/2024 12:43 PM EDT [facility] RDW 13.6 12.3 - 15.4 % 11/19/2024 12:43 PM EDT [facility] RDW-SD 50.3 37.0 - 54.0 fl 11/19/2024 12:43 PM EDT [facility] MPV 11.4 6.0 - 12.0 fL 11/19/2024 12:43 PM EDT [facility] Platelets 184 140 - 450 10*3/mm3 11/19/2024 12:43 PM EDT [facility] Blood Venipuncture / Unknown 11/19/2024 12:12 PM EDT 11/19/2024 12:31 PM EDT Donya Davies LEADER TIER LAB BLOOD ORDERABLES Final Result [facility]
[address] [place] [address], * (ABNORMAL) Basic Metabolic Panel (11/19/2024 12:12 PM EDT) Glucose 87 65 - 99 mg/dL 11/19/2024 12:58 PM EDT [facility] BUN 23.2(H) 8.0 - 23.0 mg/dL 11/19/2024 12:58 PM EDT [facility] Creatinine 1.64(H) 0.76 - 1.27 mg/dL 11/19/2024 12:58 PM EDT [facility] Sodium 137 136 - 145 mmol/L 11/19/2024 12:58 PM EDT [facility] Potassium 4.7 3.5 - 5.2 mmol/L 11/19/2024 12:58 PM EDT [facility] Comment:Slight hemolysis det ected by analyzer. Result may be falsely elevated. Chloride 103 98 - 107 mmol/L 11/19/2024 12:58 PM EDT [facility] CO2 25.0 22.0 - 29.0 mmol/L 11/19/2024 12:58 PM EDT [facility] Calcium 9.3 8.6 - 10.5 mg/dL 11/19/2024 12:58 PM EDT [facility] BUN/Creatinine Ratio 14.1 7.0 - 25.0 11/19/2024 12:58 PM EDT [facility] Anion Gap 9.0 5.0 - 15.0 mmol/L 11/19/2024 12:58 PM EDT [facility] eGFR 43.4(L) >60.0 mL/min/1.7 3 11/19/2024 12:58 PM EDT [facility] Blood Venipuncture / Unknown 11/19/2024 12:12 PM EDT 11/19/2024 12:31 PM EDT Narrative [facility] - 11/19/2024 12:58 PM EDT GFR [...] Davies APRN LAB BLOOD ORDERABLES Final Result [facility]
[address] [place] [address], * (ABNORMAL) Hemoglobin A1c (08/17/2024 10:23 AM EDT) Pathologist [facility] Hemoglobin A1C 9.30(H) 4.80 - 5.60 % 08/17/2024 12:26 PM EDT [facility] Blood Venipuncture / Unknown 08/17/2024 10:23 AM EDT 08/17/2024 11:12 AM EDT Narrative [facility] - 08/17/2024 12:26 PM EDT Hemoglobin A1C Ranges: Increased Risk for Diabetes 5.7% to 6.4% Diabetes >= 6.5% Diabetic Goal < 7.0% Alfonso Jack MD LAB BLOOD ORDERABLES Fi nal Result Performing Organization Address City/[facility]/ZIP Co de Phone Number [facility]
[address] [place] [address], * Lipid Panel (08/12/2023) Blood Rylee Cordero APRN LAB BLOOD ORDERABLE S Final Result [facility]
[address] [place] [address], * COLONOSCOPY (10/05/2012) Pathologist [facility] Colonoscopy [facility]; [place]; POLYPS, PERSONAL HX ADENOMATOUS POLYPS, DIVERTICULOSIS; REPEAT 5 YEARS Carlito Provider HEALTH MAINTENANCE Final Result from Last 3 Months or Most Recently Relevant to Health Maintenance Insurance MEDICARE A & B [facility] [place] PPO Advance Directives * CPR (Attempt to [...] Of Support Discussed With: Patient Care Teams Hamper Maker Machine Relationship Specialty Start Date End Date Otilio Menendez MD [address] [place] [address] PCP - General Family Medicine 10/29/22
--- OUTSIDE RECORDS SUMMARY | 2025-01-06 06:46 | XMS_ITS | Encounter Summary ---
Author Organization [facility] Address [address] [place] [address] Care Team Providers Care Lawn Mower Sharpener Name Role Phone Otilio Menendez MD Primary Care Provider +1- [phone] Encounter Details Date Type Department Care Team [...] Recorded In the past 12 months has [employer], gas, oil, or water [employer] threatened to shut off services in your [...] Description 02/28/2025 11:00 AM EST Office Visit [facility] [address] [place] [address] Mark Guerra, DO [address] [place] [address] 06/06/2025 10:30 AM EST Office Visit [facility] [address] [facility] [address] [place] [id number] Kirby Stack PA [address] [place], [place] [id number] 12/05/2025 11:30 AM EDT Office Visit [facility] [address] [facility] [address] [place] [address] Mark Guerra DO [address] [facility] [address] [place] [address] documented as of this encounter Visit Diagnoses Not on filedocumented in this encounter Care Teams Lawn Mower Sharpener Relationship Specialty Start Date End Date Otilio Menendez MD [address] [place] [address] PCP - General Family Medicine 10/29/22 documented as of this encounter
--- OUTSIDE RECORDS SUMMARY | 2025-01-06 06:46 | XMS_ITS ---
Laboratory report Created on: December 31, 2024 JOHANA ARZATE : 1950 Sex: Male Author Organization Unknown PROBLEMS Problems List Code Description RESULTS Laboratory Orders Date Order Code Test 2024-12-28 [id number] AFP, SERUM, TUMO R MARKER Laboratory Results Date LOINC Test Value Unit Reference Range Interpre tation 2024-12-28 [id number] AFP, SERUM, TUMO R MARKER 3.2 NG/ML 0.0-8.4
--- OUTSIDE RECORDS SUMMARY | 2025-01-06 06:46 | XMS_ITS | Encounter Summary ---
Author Organization [facility] Address [address] [place] [address] Care Team Providers Care Family Intervention Specialist Name Role Phone Otliio Menendez MD Primary Care Provider +1- [phone] Encounter Details Date Type Department Care Team ([facility] st Contact Info) Description 12/03/2024 Telephone [facility] [address] [facility] [address] [place] [address] Donya Davies APRN [address] [facility] [address] [place] [address] Social History Tobacco Use Types Packs/Day Years Used Date Smoking Tobacco: Every Day Cigarettes 1.5 62.8 Started: 1963 Passive Smoke Exposure: Current Smokeless Tobacco: Never Alcohol Use Standard Drinks/Week Comments Not Currently 0 (1 standard drink = 0.6 oz pur e alcohol) [facility] Utilities Answer Date Recorded In the past 12 months has [employer], gas, oil, or water [employer] threatened to shut off services in [...] GED or equivalent No 11/19/2024 Preferred Language Cuban 11/19/2024 Sex and Gender Information Value Date [...] Description 02/28/2025 11:00 AM EST Office Visit [facility] [address] [facility] [address] [place] [address] Mark Guerra, DO [address] [place] [address] 06/06/2025 10:30 AM EST Office Visit [facility] [address] [facility] [address] [place] [address] Kirby Stack PA [address] [place] [address] 12/05/2025 11:30 AM EDT Office Visit [facility] [address] [facility] [address] [place] [address] Mark Guerra, DO [address] [place] [address] documented as of this encounter Visit Diagnoses Not on filedocumented in this encounter Care Teams Family Intervention Specialist Relationship Specialty Start Date End Date Otilio Menendez MD [address] [place] [address] PCP - General Family Medicine 10/29/22 documented as of this encounter
--- NOTE | 2025-01-06 07:00 | CT_ITS ---
FINAL REPORT TECHNIQUE: Axial CT images of the chest were obtained without contrast. Low-dose protocol was utilized. This study was performed with techniques to keep radiation doses as low as reasonably achievable (ALARA). Individualized dose reduction techniques using automated exposure control or adjustment of mA and/or kV according to the patient's size were employed. CLINICAL HISTORY: lung cancer screening current smoker 1ppd x63 years COMPARISON: 11/17/2023 FINDINGS: CT CHEST WITHOUT, LOW DOSE SCREENING CT Di Vol: 2.90 mGy DLP: 97.68 mGy*cm There is no axillary, mediastinal, or hilar adenopathy. The heart size is normal. There is no pleural or pericardial effusion. The lung windows show a nodule in the inferior right upper lobe measuring 7 mm which appears larger than on the prior study, well seen on image 52 of series 3. There are coarse interstitial opacities at the lung bases consistent with chronic fibrosis. No other lung nodules identified. Limited images of the upper abdomen demonstrate no acute findings. IMPRESSION: Increasing size of nodule inferior right upper lobe. LR Category 4A: 3 month follow-up low-dose chest CT is recommended per Fleischner criteria. Reviewed, Interpreted and Dictated by Ji Giraldo MD Transcribed by Sophia Simeon Authenticated and [facility]
== END 2025-01-06 23:59 | disposition home or self-care (01) ==
LOC: RAD 06:43
PROVIDERS: PCP Family Medicine; Visit Provider Family Medicine
DX: R91.1 Solitary pulmonary nodule (principal); Z87.891 Personal history of nicotine dependence; Z12.2 Encounter for screening for malignant neoplasm of respiratory organs
CPT/HCPCS: 71271

== ENCOUNTER 2025-04-02 10:58 | Emergency (ER) | payer MEDICARE, BC, SELFPAY ==
--- OUTSIDE RECORDS SUMMARY | 2025-02-28 11:00 | XMS_ITS | Encounter Summary ---
Author Organization [facility] Address [address] [place] [address] Care Team Providers Care Youth Officer Name Role Phone Otilio Menendez MD Primary Care Provider +1- [phone] Reason for Visit * Reason Comments PAF (paroxysmal atrial fibrillation) Encounter Details Date Type Department Care Team ([facility] Contact Info) Description 02/28/2025 11:00 AM EST Office Visit [facility] [address] [facility] [address] [place] [address] Mark Guerra DO [address] In[facility] [address] [place] [address] Persistent atrial fibrillation (Primary Dx); Essential hypertension; Obstructive sleep apnea syndrome Social History Tobacco Use Types Packs/Day Years Used Date Smoking Tobacco: Every Day Cigarettes 1.5 63 Started: 1963 Passive Smoke Exposure: Current Smokeless Tobacco: Never Tobacco Cessation:Ready to Q uit: Not Asked; Counseling Given: Not Answered Alcohol Use Standard Drinks/Week Comments Not Currently 0 (1 standard drink = 0.6 oz pur e alcohol) [facility] Utilities Answer Date Recorded In the past 12 months has [employer], gas, oil, or water [employer] threatened to shut off services in your [...] GED or equivalent No 11/19/2024 Preferred Language Ukrainian 11/19/2024 Sex and Gender Information Value Date Recorded Sex Assigned at Not on file Legal Sex Male 11:07 AM EDT Gender Identity Not on file Sexual Orientation Not on file documented as of this encounter Last Filed Vital Signs Vital Sign Reading Time Taken Comments Blood Pressure 142/64 02/28/2025 10:56 AM EST Pulse 46 02/28/2025 10:56 AM EST Temperature - - Respiratory Rate - - Oxygen Saturation 94% 02/28/2025 10:56 AM EST Inhaled Oxygen Concentration - - Weight 108 kg (239 lb) 02/28/2025 10:56 AM EST Height 182.9 cm (6') 02/28/2025 10:56 AM EST Body Mass Index 32.41 02/28/2025 10:56 AM EST documented in this encounter Progress Notes * Mark Guerra, DO - 02/28/2025 11:00 AM EST Images from the original note were not included. Cardiac Electrophysiology Outpatient Follow Up Note [facility] [place] [facility] Follow Up Office Visit Kirby Alvarado [id number] 02/28/2025 @[email or web address]@ @[email or web address]@ Primary Care Physician: Otilio Menendez MD Referred By: No ref. provider found Subjective Chief Complaint: Diagnoses and all orders for this visit: 1. Persistent atrial fibrillation (Primary) Assessment & Plan: 11/25/2024 he underwent successful wide antral circumferential pulmonary vein isolation with additional ablation of left atrial roof left atrial posterior wall left atrial inferior wall as well as cavotricuspid isthmus. 2. Essential hypertension Assessment & Plan: Today's BP 3. Obstructive sleep apnea syndrome Assessment & Plan: CPAP Chief Complaint Patient presents with PAF (paroxysmal atrial fibrillation) History of Present Illness: Kirby Alvarado is a 75 y.o. male who presents to my electrophysiology clinic for follow up of above. Past Medical History: Past Medical History: Diagnosis Date Arrhythmia Atrial fibrillation Qiu's esophagus Colorectal polyps Coronary artery disease Diabetes mellitus Diverticulitis Gastritis Hiatal hernia Hx of adenomatous polyp of colon Hyperlipidemia Hypertension Prostate cancer Sigmoid diverticulosis Sleep apnea mask worn Tobacco use 08/23/2024 Torn Achilles tendon 08/06/2023 Wears glasses RX Wears partial dentures Past Surgical History: Past Surgical History: Procedure Laterality Date CARDIAC CATHETERIZATION 01/04/2024 2 stents CARDIAC ELECTROPHYSIOLOGY PROCEDURE N/A 11/25/2024 Procedure: Ablation atrial fibrillation; PFA; Rhythmia General anesthesia Preop CT Do not hold anticoagulation; Surgeon: Mark Guerra DO; Location: [facility]; Service: Cardiovascular; Laterality: N/A; CHOLECYSTECTOMY N/A 08/23/2024 Procedure: CHOLECYSTECTOMY LAPAROSCOPIC; Surgeon: Alfonso Jack MD; Location: [facility]; Service: General; Laterality: N/A; COLONOSCOPY FOREIGN BODY REMOVAL Right wrist HERNIA REPAIR x 4 TONSILLECTOMY UPPER GASTROINTESTINAL ENDOSCOPY 03/09/2013 Family History: Family History Problem Relation Name Age of Onset Prostate cancer Father Colon cancer Father Diabetes Sister Diabetes Sister Social History: Social History Socioeconomic History Marital status: Tobacco Use Smoking status: Every Day Current packs/day: 1.50 Average packs/day: 1.5 packs/day for 62.9 years (94.3 ttl pk-yrs) Types: Cigarettes Start date: 1962 Passive exposure: Current Smokeless tobacco: Never Vaping Use Vaping status: Never Used Substance and Sexual Activity Alcohol use: Not Currently Drug use: Never Sexual activity: Defer Medications: Current Outpatient Medications: cetirizine (zyrTEC) 5 MG tablet, Take 1 tablet by mouth Daily., Disp: , Rfl: dilTIAZem CD (CARDIZEM CD) 240 MG 24 hr capsule, Take 1 capsule by mouth Daily., Disp: , Rfl: docusate sodium (COLACE) 250 MG capsule, Take 1 capsule by mouth 2 (Two) Times a Day., Disp: 14 capsule, Rfl: 0 Eliquis 5 MG tablet tablet, Take 1 tablet by mouth Every 12 (Twelve) Hours., Disp: , Rfl: furosemide (LASIX) 40 MG tablet, Take 1 tablet by mouth Daily., Disp: , Rfl: insulin glargine (LANTUS, SEMGLEE) 100 UNIT/ML injection, Inject 144 Units under the skin into the appropriate area as directed Daily., Disp: , Rfl: linaclotide (LINZESS) 72 MCG capsule capsule, Take 92 mcg by mouth Daily., Disp: , Rfl: lisinopril (PRINIVIL,ZESTRIL) 20 MG tablet, Take 1 tablet by mouth Daily., Disp: , Rfl: multivitamin with minerals tablet tablet, Take 1 tablet by mouth Daily., Disp: , Rfl: ondansetron ODT (ZOFRAN-ODT) 4 MG disintegrating tablet, Place 1 tablet on the tongue As Needed forNausea., Disp: , Rfl: prasugrel (EFFIENT) 10 MG tablet, Take 1 tablet by mouth Daily., Disp: , Rfl: Protonix 40 MG EC tablet, Take 1 tablet by mouth 2 (Two) Times a Day., Disp: , Rfl: rosuvastatin (CRESTOR) 40 MG tablet, Take 1 tablet by mouth Daily., Disp: 90 tablet, Rfl: 1 SITagliptin (Zituvio) 100 MG tablet, Take 100 mg by mouth Daily., Disp: , Rfl: Toprol XL 200 MG 24 hr tablet, Take 1 tablet by mouth 2 (Two) Times a Day., Disp: 180 tablet, Rfl: 1 VITAMIN C, CALCIUM ASCORBATE, PO, Take 1 tablet by mouth Daily., Disp: , Rfl: Allergies: Allergies Allergen Reactions Latex Unknown - Low Severity Surgeon used latex stitches and had a rash on incision Objective Vital Signs: Vitals: 02/28/25 1056 BP: 142/64 BP Location: Left arm Patient Position: Sitting Pulse: (!) 46 SpO2: 94% Weight: 108 kg (239 lb) Height: 182.9 cm (72 ) PHYSICAL EXAM General appearance: Awake, alert, cooperative Head: Normocephalic, without obvious abnormality, atraumatic Eyes: Conjunctivae/corneas clear, EOMs intact Neck: no adenopathy, no carotid bruit, no JVD, and thyroid: not enlarged Lungs: clear to auscultation bilaterally and no rhonchi or crackles , ' symmetric Heart: regular rate and rhythm, S1, S2 normal, no murmur, click, rub or gallop Abdomen: Soft, non-tender, bowel sounds normal, no organomegaly Extremities: extremities normal, atraumatic, no cyanosis or edema Skin: Skin color, turgor normal, no rashes or lesions Neurologic: Grossly normal Lab Results Component Value Date GLUCOSE 87 11/19/2024 CALCIUM 9.3 11/19/2024 NA 137 11/19/2024 K 4.7 11/19/2024 CO2 25.0 11/19/2024 CL 103 11/19/2024 BUN 23.2 (H) 11/19/2024 CREATININE 1.64 (H) 11/19/2024 BCR 14.1 11/19/2024 ANIONGAP 9.0 11/19/2024 Lab Results Component Value Date WBC 13.52 (H) 11/19/2024 HGB 15.9 11/19/2024 HCT 48.2 11/19/2024 MCV 100.0 (H) 11/19/2024 PLT 184 11/19/2024 Lab Results Component Value Date INR 0.99 08/17/2024 PROTIME 13.7 08/17/2024 No results found for: TSH , N4YACCU , F3DSQUZ , THYROIDAB Cardiac Testing: I personally viewed and interpreted the patient's EKG/Telemetry/lab data Procedures Tobacco Cessation: N/A Obstructive Sleep Apnea Screening: Completed Advance Care Planning ACP discussion was declined by the patient. Patient does not have an advance directive, declines further assistance.2 Assessment & Plan Diagnoses and all orders for this visit: 1. Persistent atrial fibrillation (Primary) Assessment & Plan: 11/25/2024 he underwent successful wide antral circumferential pulmonary vein isolation with additional ablation of left atrial roof left atrial posterior wall left atrial inferior wall as well as cavotricuspid isthmus. 2. Essential hypertension Assessment & Plan: Today's BP 3. Obstructive sleep apnea syndrome Assessment & Plan: CPAP Diagnosis Plan 1. Persistent atrial fibrillation Normal sinus rhythm only since ablation 3 months ago. Feels markedly better. Stop Cardizem. I think his symptoms of fatigue will improve off of this and I think that this is contributing to some iatrogenic sinus node dysfunction in the face of significant dose of metoprolol and Cardizem. Stop Cardizem today. 2. Essential hypertension Blood pressure well-controlled. 3. Obstructive sleep apnea syndrome CPAP. Compliant. Doing well. Body mass index is 32.41 kg/m??. I spent 385 minutes in consultation with this patient which included more than 65% of this time in direct [id number] counseling, physical examination and discussion of my assessment and findings and this shared decision making with the patient. The remainder of the time not spent [id number] wasperforming one, some or all of the following actions: preparing to see the patient (e.g. reviewing tests, prior clinicians' notes, etc), ordering medications, tests or procedures, coordination of care, discussion of the plan with other healthcare providers, documenting clinical information in epic as well as independently interpreting results and communication of these results to the patient family and/or caregiver(s). Please note that this explicitly excludes time spent on other separate billable services such as performing procedures or test interpretation, when applicable. Follow Up: Thank you for allowing me to participate in the care of your patient. Please to not hesitate to contact me with additional questions or concerns. Mark Guerra DO, [facility] Cardiac Ceramic Tile Installer [facility] documented in this encounter Plan of Treatment Upcoming Encounters Date Type Department Care Team (Late st Contact Info) Description 06/06/2025 10:30 AM EST Office Visit [facility] [address] [facility] [address] [place] [address] Kirby Stack PA [address] [facility] [address] [place] [address] 12/05/2025 11:30 AM EDT Office Visit [facility] [address] [facility] [address] [place] [address] Mark Guerra DO [address] [facility] [address] [place] [address] documented as of this encounter Visit Diagnoses Diagnosis Persistent atrial fibrillation- Primary Atrial fibrillation Essential hypertension Unspecified essential hypertension Obstructive sleep apnea syndrome Obstructive sleep apnea (adult) (pediatric) documented in this encounter Care Teams Youth Officer Relationship Specialty Start Date End Date Otilio Menendez MD [address] [place] [address] PCP - General Family Medicine 10/29/22 documented as of this encounter
[2025-04-02] VITALS (7 sets, daily range): BP systolic 132–153; BP diastolic 68–82; PULSE 55–83; RESP 17–20; TEMP 36.8–36.9; O2SAT 95–98; BMI 30.9
--- NOTE | 2025-04-02 11:08 | ECG_ITS ---
APPROVED REPORT Exam: Resting ECG HR:57 bpm ECG Measurements Heart Rate 57 AXES QRSd 127 QRS -61 QT 417 T 89 QTc 412 Conclusion Sinus arrhythmia with bundle branch block and irregular P waves RIGHT BUNDLE BRANCH BLOCK [120+ ms QRS DURATION, UPRIGHT V1, 40+ ms S IN I/aVL/V4/V5/V6] LEFT ANTERIOR FASCICULAR BLOCK [QRS AXIS <= -45, QR IN I, RS IN II] ABNORMAL ECG UNCONFIRMED REPORT Electronically signed by : JEREMIE BRITO, 04/03/2025 07:18:13
--- NOTE | 2025-04-02 11:10 | XR_ITS ---
PROCEDURE INFORMATION: Exam: XR Chest Exam date and time: 04/02/2025 11:48 AM Age: 75 years old Clinical indication: Pain; Chest pressure; Additional info: Chest pain TECHNIQUE: Imaging protocol: Radiologic exam of the chest. Views: 1 view. COMPARISON: CT LUNG SCREENING 01/06/2025 7:00 AM FINDINGS: Tubes, catheters and devices: EKG leads. Lungs: Bilateral chronic appearing interstitial changes again demonstrated. Known right upper lobe nodule is not visualized radiographically. Pleural spaces: Unremarkable. No pleural effusion. No pneumothorax. Heart/Mediastinum: Unremarkable. No cardiomegaly. Vasculature: Atherosclerosis. Bones/joints: Degenerative changes of the spine. IMPRESSION: No acute findings.
--- NOTE | 2025-04-02 11:17 | CT_ITS ---
PROCEDURE INFORMATION: Exam: CTA Abdomen and Pelvis With Contrast Exam date and time: 04/02/2025 12:32 PM Age: 75 years old Clinical indication: Abdominal pain; Generalized; Additional info: Abd pain TECHNIQUE: Imaging protocol: Computed tomographic angiography of the abdomen and pelvis with contrast. Exam focused on the arteries. 3D rendering (Not supervised by radiologist): MIP and/or 3D reconstructed images were created by the technologist. Radiation optimization: All CT scans at this facility use at least one of these dose optimization techniques: automated exposure control; mA and/or kV adjustment per patient size (includes targeted exams where dose is matched to clinical indication); or iterative reconstruction. Contrast material: ISOVUE; Contrast volume: 80 ml; Contrast route: INTRAVENOUS (IV); COMPARISON: CT ABDOMEN PELVIS W CON 04/03/2024 8:57 PM FINDINGS: Lungs: Mild fibrosis and scarring within the visualized lower lobe periphery. Bilateral lower lobe bronchial wall thickening, compatible with reactive airway disease or bronchitis. Coronary arteries: Moderate three-vessel coronary artery atherosclerotic calcification. Aorta: Atherosclerotic calcification of the abdominal aorta and iliac arteries. Celiac and mesenteric arteries: Mixed atherosclerotic plaque within the proximal SMA, causing approximately 40% luminal narrowing. Renal arteries: Mixed atherosclerotic plaque within the proximal renal arteries bilaterally, causing approximately 90% luminal narrowing on the right and 50% luminal narrowing on the left. Right iliac arteries: No occlusion or significant stenosis. Left iliac arteries: No occlusion or significant stenosis. Veins: Phleboliths within the pelvis. Liver: Minimal nodularity of the hepatic peripheral contour, suggesting cirrhosis. Gallbladder and biliary ducts: Gallbladder surgically absent. Pancreas: Unremarkable. No mass. No ductal dilation. Spleen: Unremarkable. No splenomegaly. Adrenal glands: Bilateral adrenal hyperplasia. Kidneys and ureters: Simple left renal cyst, for which no further evaluation necessary. Stomach and bowel: Colonic diverticulosis. Appendix: Appendix normal. Intraperitoneal space: Unremarkable. No free air. No significant fluid collection. Lymph nodes: Unremarkable. No enlarged lymph nodes. Urinary bladder: Unremarkable. No mass. Reproductive: Unremarkable as visualized. Bones/joints: Multilevel thoracolumbar spine degenerative disc space narrowing and osteophyte formation, with associated central canal narrowing at the L3-L4 and L4-L5 levels. Soft tissues: Small fat containing ventral hernia, without acute complications. Surgical changes of prior inguinal hernia repair. IMPRESSION: 1. No acute abdominal or pelvic abnormality. 2. Bilateral lower lobe bronchial wall thickening, compatible with reactive airway disease or bronchitis. 3. Other (less critical/noncritical/incidental) findings as above; please refer to the body of report for further details.
--- NOTE | 2025-04-02 11:17 | CT_ITS ---
PROCEDURE INFORMATION: Exam: CT Head Without Contrast Exam date and time: 04/02/2025 12:29 PM Age: 75 years old Clinical indication: Pain; Dizziness; Headache; Additional info: Dizzy, schulte- on blood thinners TECHNIQUE: Imaging protocol: Computed tomography of the head without contrast. Radiation optimization: All CT scans at this facility use at least one of these dose optimization techniques: automated exposure control; mA and/or kV adjustment per patient size (includes targeted exams where dose is matched to clinical indication); or iterative reconstruction. COMPARISON: CT SINUS WO CON 04/19/2022 10:57 AM FINDINGS: Brain: Mild brain volume loss. Moderate white matter changes typical of hypertension or chronic small vessel ischemia. No intracranial hemorrhage. Cerebral ventricles: No ventriculomegaly. Paranasal sinuses: Visualized sinuses are unremarkable. No fluid levels. Mastoid air cells: Visualized mastoid air cells are well aerated. Bones: Unremarkable. No acute fracture. Soft tissues: Unremarkable. Vasculature: Atherosclerosis. IMPRESSION: No acute findings. No intracranial hemorrhage.
[2025-04-02 11:36] LABS: Hematocrit 46.3 % (42.0-52.0); Hemoglobin 15.1 g/dL (14.1-18.0); Immature Granulocytes % 0.5 %; Mean Corpuscular HGB Conc 32.6 g/dL (31.8-35.4); Mean Corpuscular Hemoglobin 32.3 pg (27.0-31.2); Mean Corpuscular Volume 99.1 fl (80-94); Nucleated Red Blood Cells % 0 %; Platelet Count 164 K/mm3 (142-424); Red Blood Count 4.67 M/mm3 (4.60-6.20); Red Cell Distribution Width-SD 48.9 fL; White Blood Count 10.8 K/mm3 (4.8-10.8)
--- NOTE | 2025-04-02 11:36 | ED_ITS ---
Discharge Plan Disposition Patient Disposition: Home, Self-Care Condition: Good Prescriptions Prescriptions: No Action Crisstri Aerosphere 160-9-4.8 mcg/actuation HFA aerosol inhaler 2 inh inhalation BID Qty: 10.7 2RF Linzess 145 mcg capsule 145 mcg PO DAILY Qty: 90 3RF albuterol sulfate [Ventolin HFA] 90 mcg/actuation HFA aerosol inhaler 2 puff inhalation Q6H PRN (Reason: shortness of breath or wheezing) Qty: 8.5 3RF (DME) pen needle, diabetic 31 gauge x 3/16 needle See Rx Instructions .ROUTE .COMPLEX Qty: 1200 1RF Dose Instruction: USE TO INJECT INSULIN 1 TIME EACH DAY Rx Instructions: USE TO INJECT INSULIN 1 TIME EACH DAY prasugrel HCl [Effient] 10 mg tablet 10 mg PO DAILY 30 Days Qty: 30 6RF Eliquis 5 mg tablet 5 mg PO BID 30 Days Qty: 60 5RF Zyrtec 10 mg capsule 10 mg PO DAILY PRN (Reason: allergy symptoms) Qty: 90 0RF ascorbic acid (vitamin C) 1,000 mg capsule 1 g PO BID 30 Days Qty: 60 2RF multivitamin Tablet 1 tab PO DAILY 30 Days Qty: 30 2RF rosuvastatin 40 mg tablet 40 mg PO DAILY 30 Days Qty: 30 2RF pantoprazole 40 mg tablet,delayed release (DR/EC) 40 mg PO BID Qty: 60 5RF metoprolol succinate 200 mg tablet extended release 24 hr 200 mg PO BID Qty: 60 5RF insulin glargine U-300 conc 300 unit/mL (3 mL) insulin pen 178 unit SQ DAILY 30 Days Qty: 17.799 3RF lisinopril 20 mg tablet 40 mg PO ONCE 90 Days Qty: 180 0RF sodium,potassium,mag sulfates [Suprep Bowel Prep Kit] 17.5-3.13-1.6 gram recon soln See Rx Instructions PO .COMPLEX Qty: 354 0RF Rx Instructions: DILUTE; drink full amount early evening before AND next morning at least 4-5 hr before procedure; follow w 960 mL water PO Referrals Follow up/Referrals: Otilio Menendez MD [Primary Care Provider, Internal Medicine] - See instructions Activity Restrictions/Add. Instructions Additional Instructions/Restrictions: Follow-up with primary care If symptoms worsen or do not improve return Increase fluids Discussed with primary care about a CGM to prevent hypoglycemia Follow-up with Dr. Tan April 11 for colonoscopy Clinical Impressions Clinical Impression: Dizziness, Hypoglycemia GI bleed Qualifiers: GI bleed type/associated pathology: unspecified gastrointestinal hemorrhage type Qualified Code(s): K92.2 - Gastrointestinal hemorrhage, unspecified Instructions Patient Instructions: Combating Dizziness in Older Adults, DI for Hypoglycemia Print Language Print Language: Croatian Discharge ED Provider: Freddy Buenrostro General Adult HPI <Angeles Trivedi ([facility]), CASTING TECHNICIAN - Last Filed: 04/02/25 14:04> General Chief complaint: Dizziness Stated complaint: Syncope Time Seen by Provider: 04/02/25 11:02 Mode of Arrival: EMS Source of Information: Patient Description of Symptoms (Recalled from ER Triage Doc. by RN): pt was sitting at dinner table this morning at 0500 and became dizzy thought it was sugar and took a spoonful of sugar to raise it, is on 2 blood thinners, sees dr goodson for questionable GI bleed History of Present Illness HPI narrative: 75-year-old male presents for dizziness, sweating, tightness in the chest on the right side. Patient states he was sitting at his table this morning around 5 AM and felt dizzy, lightheaded, sweaty and right lower quadrant pain. Patient states he has felt like this before when he was glucose drops so he instantly took a tablespoon of brown sugar. Patient states with his abdominal pain he has been followed by Dr. Tan for GI bleeding and is having dark stools. Related Data Previous Rx's ?Medication ?Instructions ?Recorded pen needle, diabetic 31 gauge x #1,200 ea 08/13/2406/20 prasugrel HCl 10 mg tablet 10 mg PO DAILY 30 days #30 tabs 09/13/24 (Effient) apixaban 5 mg tablet (Eliquis) 5 mg PO BID 30 days #60 tabs 01/11/25 ascorbic acid (vitamin C) 1,000 mg 1 g PO BID 30 days #60 caps 01/11/25 capsule cetirizine 10 mg capsule (Zyrtec) 10 mg PO DAILY PRN a llergy 01/11/25 symptoms #90 caps multivitamin 1 tab PO DAILY 30 days #30 t abs 10/07/25 albuterol sulfate 90 mcg/actuation 2 puff inhalation Q 6H PRN 01/24/25 aerosol inhaler (Ventolin HFA) shortness of breath or wheezing #8.5 grams budesonide 160 mcg-glycopyr 9 2 inh inhalation BID #10 .7 grams 01/27/25 mcg-formot 4.8 mcg/actuation HFA inhaler (Breztri Aerosphere) metoprolol succinate 200 mg 200 mg PO BID #60 tabs tablet,extended release 24 hr pantoprazole 40 mg tablet,delayed 40 mg PO BID #60 tab s 03/01/25 release rosuvastatin 40 mg tablet 40 mg PO DAILY 30 days #30 t abs 03/01/25 linaclotide 145 mcg capsule 145 mcg PO DAILY #90 caps 03/10/25 (Linzess) insulin glargine U-300 conc 300 178 unit (0.5933 mL) S Q DAILY 30 03/22/25 unit/mL (3 mL) subcutaneous pen days #17.799 mL lisinopril 20 mg tablet 40 mg (2 x 20 mg) PO ONCE 90 days 03/22/25 #180 tabs sodium,potassium,mag sulfates 17.5 See Rx Instructions PO .COMPLEX 03/28/25 gram-3.13 gram-1.6 gram oral soln #354 mL (Suprep Bowel Prep Kit) Allergies Allergy/AdvReac Type Severity Reaction Status Date / Time No Known Allergies Allergy Verified 03/28/25 09:31 [facility] <Angeles Trivedi ([facility]), CASTING TECHNICIAN - Last Filed: 04/02/25 14:04> [facility] Disclaimer: The information contained in this section may have been updated after the patient was seen, as this information can be updated by other users. Medical History (Updated 04/02/25 @ 14:04 by Angeles Trivedi ([facility]), CASTING TECHNICIAN) Pre-op evaluation Malignant neoplasm of prostate (01/30/15) Tobacco abuse counseling Tobacco abuse Lung nodule Pulmonary emphysema ILD (interstitial lung disease) Smoking greater than 30 pack years Nicotine dependence, unspecified, uncomplicated Nodule of right lung Prostate cancer History of prostate cancer Generalized abdominal pain Transaminitis Sepsis without septic shock Nausea & vomiting Incomplete defecation Coronary artery calcification seen on CT scan Abnormal electrocardiogram [ECG] [EKG] Chest pain Hepatic cirrhosis Coronary artery disease Abdominal pain MARY (acute kidney injury) CKD (chronic kidney disease) Diabetes 1.5, managed as type 2 Acute hyperkalemia Fatty infiltration of liver Elbow pain History of rectal fissure Cirrhosis of liver Hepatic cirrhosis Abdominal pain Pneumonia ETD (eustachian tube dysfunction) Hypertrophy of both inferior nasal turbinates Unilateral hearing loss Nasal septal deviation Rib pain Skin infection Cough Smoking Sinusitis Anal fissure History of hemorrhoids Renal insufficiency GERD (gastroesophageal reflux disease) Torn Achilles tendon COPD (chronic obstructive pulmonary disease) Bronchitis Hyperlipidemia associated with type 2 diabetes mellitus Diabetes type 2, controlled Hypertension associated with diabetes Surgical History History of coronary artery stent placement History of prostate surgery Hx of hemorrhoidectomy History of hand surgery History of hernia repair History of colonoscopy History of tonsillectomy Family History Father Cancer Heart attack Stroke Mother Heart attack Stroke Social History (Updated 03/28/25 @ 09:35 by Jalyn Deshpande CMA) Smoking Status: Former smoker tobacco type: cigarettes packs per day: 1 pack- years: 60 alcohol intake: never substance use type: denies use current occupational status: retired Travel in the last 8 weeks?: None household members: spouse housing: house marital status: education level: vocational service: No caffeine: Yes special roxanne needs: No do you feel safe at home: Yes victim of physical abuse: No victim of emotional abuse: No victim of sexual abuse: No would you like helpful sources: No Have you lived/traveled outside [place] in past 30 days?: No Contact w/someone who lives/traveled outside US past 30 days?: No Exposure to someone with infectious disease in past 14 days?: No Do you have a fever (greater than 100.4 F or 38 C)?: No Have you tested positive for COVID-19?: No Exposed to someone with COVID-19 in past 14 days?: No Do you have a sore throat?: No Do you have a cough?: No Do you have any weakness?: No Do you have any diarrhea?: No Are you experiencing any unusual bleeding?: No Do you have any muscle aches/pain?: No Do you have any abdominal pain?: No Are you experiencing loss of taste or smell?: No Other Medical History Have you received the Flu Vaccine for this season: No Have you received the Pneumonia Vaccine: Yes <Angeles Trivedi ([facility]), CASTING TECHNICIAN - Last Filed: 04/02/25 14:04> ROS Obtained: Yes Systems reviewed as appropriate & no additional complaints except as documented ENT Ears, Nose, Mouth, and Throat: Reports system reviewed and no additional complaints, except as documented, Reports as per HPI and Reports dizziness Gastrointestinal Gastrointestingal: Reports system reviewed and no additional complaints, except as documented, as per HPI, abdominal pain, cramping and melena Neurologic Neurologic: Reports dizziness Physical Exam <Angeles Trivedi ([facility]), CASTING TECHNICIAN - Last Filed: 04/02/25 14:04> General General appearance: alert and in no apparent distress Eye Eye exam: Present normal appearance and PERRL ENT ENT exam: Present normal exam Respiratory Respiratory exam: Present normal lung sounds bilaterally Cardiovascular Cardiovascular exam: Present regular rate and normal rhythm Abdominal Exam Abdominal exam: Present soft, tenderness and normal bowel sounds Abdominal tenderness: Present RLQ Neurological Exam Neurological exam: Present alert and oriented X3 Skin Skin exam: Present warm and intact Medical Decision Making <Angeles Trivedi ([facility]), CASTING TECHNICIAN - Last Filed: 04/02/25 14:04> Medical Records Medical records reviewed: Yes I reviewed the patient's medical records. Screening: Per USPSTF and CDC recommendations, given the prevalence of disease in our region, it is our hospital?s policy to screen for HIV and viral Hepatitis for all patients aged 18 and over and those with ongoing risk factors. Jose Inquiry Pt receiving controlled substance: No Vital Signs: 04/02/25 10:44 04/02/25 11:30 04/02/25 12:00 Temperature 98.4 F Temperature Source Oral Pulse Rate 56 L 83 Pulse Rate [Left Radial] 61 Respiratory Rate 20 17 20 Blood Pressure 134/68 132/68 Blood Pressure [Right Arm] 139/68 Blood Pressure Mean 81 Blood Pressure Mean [Right Arm] 91 02 Sat by Pulse Oximetry 95 95 95 Oxygen Delivery Method Room Air Room Air 04/02/25 12:17 04/02/25 13:00 04/02/25 13:30 Temperature Temperature Source Pulse Rate 62 56 L 60 Pulse Rate [Left Radial] Respiratory Rate 18 20 20 Blood Pressure 148/77 H 146/74 H 148/71 H Blood Pressure [Right Arm] Blood Pressure Mean 81 82 77 Blood Pressure Mean [Right Arm] 02 Sat by Pulse Oximetry 97 96 96 Oxygen Delivery Method Lab Data Lab results reviewed: Yes I reviewed the patient's lab results. Lab Results 04/02/25 11:20: WBC 10.8, RBC 4.67, Hgb 15.1, Hct 46.3, MCV 99.1 H, MCH 32.3 H, MCHC 32.6, RDW 13.3, Plt Count 164, MPV 11.7 H, Neut % (Auto) 74.1, Lymph % (Auto) 16.9, [place] % (Auto) 6.9, Eos % (Auto) 1.2, Baso % (Auto) 0.4, Neut # (Auto) 8.0 H, Lymph # (Auto) 1.8, [place] # (Auto) 0.7, Eos # (Auto) 0.1, Baso # (Auto) 0.0, Sodium 134 L, Potassium 5.7 H, Chloride 107, Carbon Dioxide 20 L, Anion Gap 12.7, BUN 44 H, Creatinine 2.00 H, Estimated Creat Clear 47, Estimated GFR 33 L, Est GFR ( Amer) 40 L, Glucose 291 H, Calcium 9.7, Total Bilirubin 0.8, AST 57, ALT 38, Alkaline Phosphatase 108, Troponin I < 0.01, Total Protein 7.5, Albumin 4.4, Globulin 3.1, Albumin/Globulin Ratio 1.4, Acetone Level None detected, SARS-CoV-2 (PCR) Not detected, Influenza A Untype (PCR) Not detected, Influenza Type B (PCR) Not detected 04/02/25 11:24: VBG pH 7.27 L, VBG pCO2 45.4, VBG pO2 56.1 H, VBG HCO3 20.4 L, V BG Total CO2 21.8 L, VBG O2 Saturation 87.9 H, VBG Base Excess -6.5 L, VBG Lactic Acid 2.6 H 04/02/25 12:15: Urine Color Yellow, Urine Appearance Clear, Urine pH 5.0, Ur Specific [place] 1.025, Urine Protein Negative, Urine Glucose (UA) 1+, Urine Ketones Negative, Urine Blood Negative, Urine Nitrate Negative, Urine Bilirubin Negative, Urine Urobilinogen 0.2, Ur Leukocyte Esterase Negative, Urine RBC None, Urine WBC None, Ur Squamous Epith Cells Occasional, Urine Bacteria None 04/02/25 11:20 04/02/25 11:20 Orders (Tests/Meds): ED MEDICATIONS Discontinued Medications Generic Name Dose Route Start Last Admin Trade Name David PRN Reason Stop Dose Admin Acetaminophen 500 mg 04/02/25 11:17 04/02/25 12:32 Acetaminophen 500mg Tab PO 04/02/25 11:18 500 mg ONCE ONE Administration Lactated Ringer's 500 mls @ 999 mls/hr 04/02/25 11:52 04/02/25 12:34 Lactated Ringer's 500ml IV 04/02/25 12:22 999 mls/hr .Q31M ONE Administration Iopamidol 80 ml 04/02/25 12:40 04/02/25 12:40 Iopamidol-370 (76%);100ml Bottle IV 04/02/25 12:41 80 ml ONCE ONE Administration Sodium Chloride 10 ml 04/02/25 12:40 04/02/25 12:40 Sodium Chloride 0.9% 10ml Syr (Rad Only) IV 04/02/25 12:41 10 ml ONCE ONE Administration Sodium Chloride 50 ml 04/02/25 12:40 04/02/25 12:40 0.9 % Sodium Chloride 50 Ml Vial IV 04/02/25 12:41 50 ml ONCE ONE Administration ORDERS Category Date Time Status CT angio abd/pel - GI Bleed Stat Cat Scan 04/02/25 11:[address] head/brain wo con Stat Cat Scan 04/02/25 11:17 Completed XR chest portable Stat Exams 04/02/25 11:10 Completed Acetone, Serum (Rapid) Stat Lab 04/02/25 11:20 Completed Complete Blood Count Auto Diff Stat Lab 04/02/25 11:20 Completed Comprehensive Metabolic Panel Stat Lab 04/02/25 11:20 Completed Rapid PCR Covid and Flu A/B Stat Lab 04/02/25 11:20 Completed Troponin I Q3H Lab 04/02/25 14:15 Ordered Troponin I Q3H Lab 04/02/25 17:15 Ordered Troponin I Stat Lab 04/02/25 11:20 Completed Urinalysis and Microscopic Stat Lab 04/02/25 12:15 Completed Venous Blood Gas Stat RT 04/02/25 11:24 Completed Medical Decision Narrative: In summary patient is a 75-year-old male who presents to the emergency department for evaluation of right lower quadrant pain,dark stools, episode of dizziness, shaking hands,lightheadedness, sweaty, pain in right arm. Patient is hemodynamically stable upon arrival, afebrile. Tenderness noted right lower quadrant. Neurological exam negative. Differential diagnosis includes dehydration, orthostatic hypotension, vasovagal episode, hypoglycemia, anemia, cardiac arrhythmias, GI bleed. Initial workup will be conducted with labs, CT abdomen and brain, urinalysis. Initial inventions include fluids, labs. Initial workup reviewed by me creatinine 2 patient baseline is 1.7-1.8. H&H normal limits, white count normal, sodium slightly low, potassium slightly elevated, blood gas pH slightly low, CT head normal. Upon repeat evaluation patient states he is feeling better tolerated p.o. Given this patient was able to tolerate p.o. and walked to the bathroom without any problem. States he feels much better. <Freddy Buenrostro MD - Last Filed: 04/02/25 14:11> Vital Signs: 04/02/25 10:44 04/02/25 11:30 04/02/25 12:00 Temperature 98.4 F Temperature Source Oral Pulse Rate 56 L 83 Pulse Rate [Left Radial] 61 Respiratory Rate 20 17 20 Blood Pressure 134/68 132/68 Blood Pressure [Right Arm] 139/68 Blood Pressure Mean 81 Blood Pressure Mean [Right Arm] 91 02 Sat by Pulse Oximetry 95 95 95 Oxygen Delivery Method Room Air Room Air 04/02/25 12:17 04/02/25 13:00 04/02/25 13:30 Temperature Temperature Source Pulse Rate 62 56 L 60 Pulse Rate [Left Radial] Respiratory Rate 18 20 20 Blood Pressure 148/77 H 146/74 H 148/71 H Blood Pressure [Right Arm] Blood Pressure Mean 81 82 77 Blood Pressure Mean [Right Arm] 02 Sat by Pulse Oximetry 97 96 96 Oxygen Delivery Method Lab Data Lab Results 04/02/25 11:20: WBC 10.8, RBC 4.67, Hgb 15.1, Hct 46.3, MCV 99.1 H, MCH 32.3 H, MCHC 32.6, RDW 13.3, Plt Count 164, MPV 11.7 H, Neut % (Auto) 74.1, Lymph % (Auto) 16.9, [place] % (Auto) 6.9, Eos % (Auto) 1.2, Baso % (Auto) 0.4, Neut # (Auto) 8.0 H, Lymph # (Auto) 1.8, [place] # (Auto) 0.7, Eos # (Auto) 0.1, Baso # (Auto) 0.0, Sodium 134 L, Potassium 5.7 H, Chloride 107, Carbon Dioxide 20 L, Anion Gap 12.7, BUN 44 H, Creatinine 2.00 H, Estimated Creat Clear 47, Estimated GFR 33 L, Est GFR ( Amer) 40 L, Glucose 291 H, Calcium 9.7, Total Bilirubin 0.8, AST 57, ALT 38, Alkaline Phosphatase 108, Troponin I < 0.01, Total Protein 7.5, Albumin 4.4, Globulin 3.1, Albumin/Globulin Ratio 1.4, Acetone Level None detected, SARS-CoV-2 (PCR) Not detected, Influenza A Untype (PCR) Not detected, Influenza Type B (PCR) Not detected 04/02/25 11:24: VBG pH 7.27 L, VBG pCO2 45.4, VBG pO2 56.1 H, VBG HCO3 20.4 L, V BG Total CO2 21.8 L, VBG O2 Saturation 87.9 H, VBG Base Excess -6.5 L, VBG Lactic Acid 2.6 H 04/02/25 12:15: Urine Color Yellow, Urine Appearance Clear, Urine pH 5.0, Ur Specific [place] 1.025, Urine Protein Negative, Urine Glucose (UA) 1+, Urine Ketones Negative, Urine Blood Negative, Urine Nitrate Negative, Urine Bilirubin Negative, Urine Urobilinogen 0.2, Ur Leukocyte Esterase Negative, Urine RBC None, Urine WBC None, Ur Squamous Epith Cells Occasional, Urine Bacteria None Orders (Tests/Meds): ED MEDICATIONS Discontinued Medications Generic Name Dose Route Start Last Admin Trade Name Freq PRN Reason Stop Dose Admin Acetaminophen 500 mg 04/02/25 11:17 04/02/25 12:32 Acetaminophen 500mg Tab PO 04/02/25 11:18 500 mg ONCE ONE Administration Lactated Ringer's 500 mls @ 999 mls/hr 04/02/25 11:52 04/02/25 12:34 Lactated Ringer's 500ml IV 04/02/25 12:22 999 mls/hr .Q31M ONE Administration Iopamidol 80 ml 04/02/25 12:40 04/02/25 12:40 Iopamidol-370 (76%);100ml Bottle IV 04/02/25 12:41 80 ml ONCE ONE Administration Sodium Chloride 10 ml 04/02/25 12:40 04/02/25 12:40 Sodium Chloride 0.9% 10ml Syr (Rad Only) IV 04/02/25 12:41 10 ml ONCE ONE Administration Sodium Chloride 50 ml 04/02/25 12:40 04/02/25 12:40 0.9 % Sodium Chloride 50 Ml Vial IV 04/02/25 12:41 50 ml ONCE ONE Administration ORDERS Category Date Time Status CT angio abd/pel - GI Bleed Stat Cat Scan 04/02/25 11:[address] head/brain wo con Stat Cat Scan 04/02/25 11:17 Completed XR chest portable Stat Exams 04/02/25 11:10 Completed Acetone, Serum (Rapid) Stat Lab 04/02/25 11:20 Completed Complete Blood Count Auto Diff Stat Lab 04/02/25 11:20 Completed Comprehensive Metabolic Panel Stat Lab 04/02/25 11:20 Completed Rapid PCR Covid and Flu A/B Stat Lab 04/02/25 11:20 Completed Troponin I Q3H Lab 04/02/25 14:15 Ordered Troponin I Q3H Lab 04/02/25 17:15 Ordered Troponin I Stat Lab 04/02/25 11:20 Completed Urinalysis and Microscopic Stat Lab 04/02/25 12:15 Completed Venous Blood Gas Stat RT 04/02/25 11:24 Completed Medical Decision Narrative: In summary patient is a 75-year-old male who presents to the emergency department for evaluation of right lower quadrant pain,dark stools, episode of dizziness, shaking hands,lightheadedness, sweaty, pain in right arm. Patient is hemodynamically stable upon arrival, afebrile. Tenderness noted right lower quadrant. Neurological exam negative. Differential diagnosis includes dehydration, orthostatic hypotension, vasovagal episode, hypoglycemia, anemia, cardiac arrhythmias, GI bleed. Initial workup will be conducted with labs, CT abdomen and brain, urinalysis. Initial inventions include fluids, labs. Initial workup reviewed by me creatinine 2 patient baseline is 1.7-1.8. H&H normal limits, white count normal, sodium slightly low, potassium slightly elevated, blood gas pH slightly low, CT head normal. Upon repeat evaluation patient states he is feeling better tolerated p.o. Given this patient was able to tolerate p.o. and walked to the bathroom without any problem. States he feels much better. Freddy Buenrostro MD: I was consulted by the JOHNSON, and we discussed the complexity of the problems being addressed. I approved the treatment and management plan for this patient's care in the emergency department, thus performing a substantive portion of the medical decision making. Workup is nonactionable. CT imaging has questionable bronchial wall thickening however patient is asymptomatic we will defer treatment at this time. Patient's dizziness has resolved after he ate sugar prior to arrival and with regards to his blood in his stool he has colonoscopy scheduled in a week. Given this patient is appropriate for outpatient management at this time and was given multiple return precautions and verbalized understanding. Critical Care <Angeles Trivedi ([facility]), CASTING TECHNICIAN - Last Filed: 04/02/25 14:04> Critical Care Time Critical Care Time: No
[2025-04-02 11:38] LABS: VBG HCO3 20.4 mmol/L (23-30); VBG PCO2 45.4 mmol/L (35-51); VBG PH 7.27 mmol/L (7.31-7.41); VBG PO2 56.1 mmol/L (28-40)
[2025-04-02 11:39] LABS: Lactate Venous 2.6 mmol/L (0.4-2.0)
--- OUTSIDE RECORDS SUMMARY | 2025-04-02 11:41 | XMS_ITS | Clinical Summary ---
Author Organization [facility] Address [address] [place] [address] Care Team Providers Care Pest Control Service Sales Agent Name Role Phone Otilio Menendez MD Primary Care Provider [phone] Allergies Active Allergy Reactions Criticality Noted Date [...] Day. 14 capsule 08/25/2024 9:43 AM EDT 08/26/19 Active Toprol XL 200 MG 24 hr tablet Take 1 tablet by mouth 2 (Two) Times a Day. 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 10/29/2022 Essential hypertension 10/29/2022 Hyperlipidemia LDL goal <100 10/29/2022 Malignant tumor of prostate 01/30/2015 Overview (10/29/2022): Provider: Jason Witt;Status: Active Resolved Problems Problem Noted Date Diagnosed Date Resolved Date Torn Achilles tendon 08/06/2023 024 Gastritis 12/11/2022 02/04/2024 Encounters Date Type Department Care Team Description 02/28/2025 11:00 AM EST Office Visit [facility] [address] [place] [address] [address] [place] [address] Mark Guerra DO Persistent atrial fibrillation (Primary Dx); Essential hypertension; Obstructive sleep apnea syndrome 02/28/2025 Travel from Last 3 Months Immunizations Immunization Administration Dates Next Due Fluzone (or Fluarix & Flulaval for VFC) >6mos ,01/16/2018 Fluzone High-Dose 65+YRS 12/26/2016 Family History Medical History Relation Name Comments Colon cancer Father Prostate cancer Father Diabetes Sister 1 Diabetes Sister 2 Relation Name Status Comments Daughter 1 Alive Daughter 2 Alive Daughter 3 Alive Father Mother from [place] jagruti and E. coli Sister 1 Alive Sister 2 Alive Open heart surg dejah, growth in the 4th chamber of her heart Son Alive Social History Tobacco Use Types Packs/Day Years Used Date Smoking Tobacco: Every Day Cigarettes 1.5 63 Started: 1962 Passive Smoke Exposure: Current Smokeless Tobacco: Never Tobacco Cessation:Ready to Q uit: Not Asked; Counseling Given: Not Answered Alcohol Use Standard Drinks/Week Comments Not Currently 0 (1 standard drink = 0.6 oz pur e alcohol) [facility] [employer] Answer Date Recorded In the past 12 months has th e [employer], gas, oil, or water [employer] threatened to shut off services in your [...] Pulse 46 02/28/2025 10:56 AM EST Temperature 36.4 C (97.5 F) 11/25/2024 11:33 AM EDT Respiratory Rate 19 11/25/2024 11:33 AM EDT Oxygen Saturation 94% 02/28/2025 10:56 AM EST Inhaled Oxygen Concentration - - Weight 108 kg (239 lb) 02/28/2025 10:56 AM EST Height 182.9 cm (6') 02/28/2025 10:56 AM EST Body Mass Index 32.41 02/28/2025 10:56 AM EST Plan of Treatment Upcoming Encounters Date Type Department Care Team (Late st Contact Info) Description 06/06/2025 10:30 AM EST Office Visit [facility] [address] [place] [address] Kirby Stack PA [address] [place], [place] [id number] 12/05/2025 11:30 AM EDT Office Visit [facility] [address] [place] [address] Mark Guerra DO [address] [place] [address] Health Maintenance Due Date Last [...] 3 - Risk 3 -dose series) 2009 ANNUAL WELLNESS VISIT 12/26/2016 HEPATITIS C SCREENING 12/26/2016 COLONOSCOPY 10/05/2022 10/05/2012 COLORECTAL CANCER SCREENING 10/05/2022 RSV Vaccine - Adults (1 - 1- dose 75+ series) 01/30/2024 LIPID PANEL 08/11/2024 08/12/2023 COVID-19 Vaccine ( - 2024-2 6 season) 2024 01/04/2021, 06/29/2020, 06/01/2020 HEMOGLOBIN A1C 02/17/2025 08/17/2024 LUNG CANCER SCREENING 11/19/2025 11/19/2024 INFLUENZA VACCINE Completed 01/20/2025, , 01/16/2018, Additional history exists Medical Devices Implanted Type Area Bulbs Farmworker Device Identifier Shelf Expiration Date Model / Serial / Lot Clipapplr M/ Endo Ligaclip Rot 10mm /Lg - [id number] Implanted:Qty : 1 on 08/23/2024 by Alfonso Jack MD at [facility] Implant N/A: Abdomen [employer] 02/04/2029 [id number] / / [id number] Hemost Abs Surgicel 2x3 - [id number] Implanted:Qty : 1 on 08/23/2024 by Alfonso Jack MD at [facility] Implant N/A: Stomach [employer] [id number] 11/05/2027 1954 / / [id number] Procedures Procedure Name Priority Date/Time Associated Diagnosis Comments SCANNED EKG 02/28/2025 CT ANGIOGRAM CHEST W WO CONTRAST Routine 11/19/2024 1:59 PM EDT PAF (paroxysmal atrial fibrillation) HEMOGLOBIN A1C Routine 08/17/2024 10:23 AM EDT LIPID PANEL Routine 08/12/2023 Mild aortic valve sclerosis Coronary artery disease involving k[place]zebue coronary artery of [place] heart without angina pectoris HM COLONOSCOPY Routine 10/05/2012 from Last 3 Months or Most Recently Relevant to Health Maintenance Results * ECG Scan (02/28/2025) us Mark Guerra DO ECG ORDERABLES Final Result * CT Angiogram [...] MD 11/19/2024 2:50 PM EDT Workstation ID: [id number] Narrative 11/19/2024 2:[address] ANGIOGRAM [...] MD 11/19/2024 2:50 PM EDT Workstation ID: [id number] JEANEN Perez IMG CT ORDERABLES Final Re sult * (ABNORMAL) Hemoglobin A1c (08/17/2024 10:23 AM EDT) Hemoglobin A1C 9.30(H) 4.80 - 5.60 % 08/17/2024 12:26 PM EDT [facility] Blood Venipuncture / Unknown 08/17/2024 10:23 AM EDT 08/17/2024 11:12 AM EDT Narrative [facility] - 08/17/2024 12:26 PM EDT Hemoglobin A1C Ranges: Increased Risk for Diabetes 5.7% to 6.4% Diabetes >= 6.5% Diabetic Goal < 7.0% Alfonso Jack MD LAB BLOOD ORDERABLES Fi nal Result Performing Organization Address [facility]/ZIP Co de Phone Number [facility]
[address] [place] [address], * Lipid Panel (08/12/2023) Blood Rylee Cordero APRN LAB BLOOD ORDERABLE S Final Result Performing Organization Address City/[facility]/ZIP Co de Phone Number [facility]
[address] [place] [address], * COLONOSCOPY (10/05/2012) Colonoscopy [facility]; [facility] [place]; POLYPS, PERSONAL HX ADENOMATOUS POLYPS, DIVERTICULOSIS; REPEAT 5 YEARS Carlito Villafana MD HEALTH MAINTENANCE Final Result from Last 3 Months or Most Recently Relevant to Health Maintenance Insurance MEDICARE A & B [facility] PPO Advance Directives [...] Of Support Discussed With: Patient Care Teams Pest Control Service Sales Agent Relationship Specialty Start Date End Date Otilio Menendez MD [address] [place] [address] [place] [address] PCP - General Family Medicine 10/29/22
--- OUTSIDE RECORDS SUMMARY | 2025-04-02 11:41 | XMS_ITS ---
Laboratory report Created on: March 08, 2025 JOHANA ARZATE : 1950 Sex: Male Author Organization Unknown PROBLEMS Problems List Code Description RESULTS Laboratory Orders Date Order Code Test 2024-12-28 [id number] AFP, SERUM, TUMO R MARKER Laboratory Results Date LOINC Test Value Unit Reference Range Interpre tation 2024-12-28 [id number] AFP, SERUM, TUMO R MARKER 3.2 NG/ML 0.0-8.4
--- OUTSIDE RECORDS SUMMARY | 2025-04-02 11:41 | XMS_ITS ---
Laboratory report Created on: March 08, 2025 JOHANA ARZATE : 1950 Sex: Male Author Organization Unknown PROBLEMS Problems List Code Description RESULTS Laboratory Orders Date Order Code Test 2024-06-29 [id number] AFP, SERUM, TUMO R MARKER Laboratory Results Date LOINC Test Value Unit Reference Range Interpre tation 2024-06-29 [id number] AFP, SERUM, TUMO R MARKER 3 NG/ML 0.0-8.4
--- OUTSIDE RECORDS SUMMARY | 2025-04-02 11:41 | XMS_ITS | Data Portability ---
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 Patient is doing well. [email or web address] Not available 03/19/2020 18:08:52 03/08/2021 03/08/2021 Order provided for PSA. 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 [email or web address] Not available 03/09/2021 06:59:21 03/14/2022 03/14/2022 Order provided for PSA. 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 Urine for culture and sensitivity. [email or web address] Not available 03/17/2022 11:12:07 03/20/2023 03/20/2023 Continue to monitor post prostatectomy urinary symptoms. Order provided for PSA. Monitor PSA trend. [email or web address] Not available 03/23/2023 11:00:59 04/01/2024 04/01/2024 Continue to monitor PSA trend and lower urinary symptoms. [email or web address] Not available 04/02/2024 10:41:03 Plan of Treatment Reminders Order Date Submit Date Provider Last Modified By Organization Details Last Modified Time Details Appointments RECHECK 2025 01:00P Carlota MCDERMOTT MD Not available Not available Not available Lab urinalysi s panel, auto 2023 024 [email or web address] [facility] [place] [facility], [address], [place], [address], 04/02/2024 10:41:03 urinalysi s panel, auto 2022 023 [email or web address] 4 [facility] With [facility], [address], [address], [place], [address], 03/23/2023 11:01:02 urinalysi s panel, auto 2021 022 [email or web address] 4 [facility] With [facility], [address], [place], [address], 03/19/2022 08:32:27 culture, urine 2021 022 [email or web address] 4 [facility], [address] [place] [address], [address], 03/19/2022 08:32:27 urinalysi s panel, auto 2020 021 4 [facility] With [facility], [address], [place], [address], 03/09/2021 06:59:22 urinalysi s panel, auto 2019 020 [email or web address] 4 [facility] With [facility], [address], [place], [address], 03/19/2020 18:08:53 Referral None recorded. Procedures None recorded. Surgeries None recorded. Imaging None recorded. Medication Orders None recorded. Patient TargetsNo targets recorded. Patient Instructions Encounter Date Encounter Id Patient Instructions Last Modified By Organization Details Last Modified Time 03/14/2022 [id number] learning about healthy weight [email or web address] Not available 03/19/2022 08:32:27 03/20/2023 [id number] learning about healthy weight [email or web address] Not available 03/23/2023 11:01:00 Reason for Referral None Reported. Results Created Date Observation Date Name Description Value Unit Range Abnormal Flag Note LastModifiedBy Organization Detail LastModifiedTime 03/16/20 20 03/16/2020 urina lysis panel , auto Unknown Analyte Clean Catch Not Available [facility] With [facility] [address], [place], [address], 03/16/2020 13:26:31 03/16/20 20 03/16/2020 urina lysis panel , auto Unknown Analyte Yellow Not Available [facility] With [address], [place], [address], 03/16/2020 13:26:31 03/16/20 20 03/16/2020 urina lysis panel , auto Unknown Analyte Clear Not Available [facility] With [address], [place], [address], 03/16/2020 13:26:31 03/16/20 20 03/16/2020 urina lysis panel , auto Unknown Analyte 1.020 Not Available [facility] With [facility] [address], [place], [address], 03/16/2020 13:26:31 03/16/20 20 03/16/2020 urina lysis panel , auto Unknown Analyte 1.003- 1.035 Not Available [facility] With [place] [address], [place], [address], 03/16/2020 13:26:31 03/16/20 20 03/16/2020 urina lysis panel , auto Unknown Analyte 5.0 Not Available [facility] With [place] [address], [place], [address], 03/16/2020 13:26:31 03/16/20 20 03/16/2020 urina lysis panel , auto Unknown Analyte 5.0-8. 0 Not Available [facility] With [facility] [address], [place], [address], 03/16/2020 13:26:31 03/16/20 20 03/16/2020 urina lysis panel , auto Unknown Analyte Negati ve Not Available [facility] With [address], [place], [address], 03/16/2020 13:26:31 03/16/20 20 03/16/2020 urina lysis panel , auto Unknown Analyte Negati ve Not Available [facility] With [address], [place], [address], 03/16/2020 13:26:31 03/16/20 20 03/16/2020 urina lysis panel , auto Unknown Analyte Negati ve Not Available [facility] With [address], [place], [address], 03/16/2020 13:26:31 03/16/20 20 03/16/2020 urina lysis panel , auto Unknown Analyte Negati ve Not Available [facility] With [address], [place], [address], 03/16/2020 13:26:31 03/16/20 20 03/16/2020 urina lysis panel , auto Unknown Analyte Negati ve Not Available [facility] With [address], [place], [address], 03/16/2020 13:26:31 03/16/20 20 03/16/2020 urina lysis panel , auto Unknown Analyte Negati ve Not Available [facility] With [place] [address], [place], [address], 03/16/2020 13:26:31 03/16/20 20 03/16/2020 urina lysis panel , auto Unknown Analyte Normal Not Available [facility] [address], [place], [address], 03/16/2020 13:26:31 03/16/20 20 03/16/2020 urina lysis panel , auto Unknown Analyte Normal Not Available [facility] With [address] [place], [place], [address], 03/16/2020 13:26:31 03/16/20 20 03/16/2020 urina lysis panel , auto Unknown Analyte Negati ve Not Available [facility] With [address], [place], [address], 03/16/2020 13:26:31 03/16/20 20 03/16/2020 urina lysis panel , auto Unknown Analyte Negati ve Not Available [facility] With [address], [place], [address], 03/16/2020 13:26:31 03/16/20 20 03/16/2020 urina lysis panel , auto Unknown Analyte Normal Not Available [facility] With [address], [place], [address], 03/16/2020 13:26:31 03/16/20 20 03/16/2020 urina lysis panel , auto Unknown Analyte Normal 1 mg/dl Not Available [facility] With [address], [place], [address], 03/16/2020 13:26:31 03/16/20 20 03/16/2020 urina lysis panel , auto Unknown Analyte Negati ve Not Available [facility] With [address], [place], [address], 03/16/2020 13:26:31 03/16/20 20 03/16/2020 urina lysis panel , auto Unknown Analyte Negati ve Not Available [facility] With [address], [place], [address], 03/16/2020 13:26:31 03/16/20 20 03/16/2020 urina lysis panel , auto Unknown Analyte Negati ve Not Available [facility] With [address], [place], [address], 03/16/2020 13:26:31 03/16/20 20 03/16/2020 urina lysis panel , auto Unknown Analyte Negati ve Not Available [facility] With [address], [place], [address], 03/16/2020 13:26:31 03/08/20 21 03/08/2021 urina lysis panel , auto Unknown Analyte Clean Catch Not Available [facility] With [address], [place], [address], 03/08/2021 16:15:00 03/08/20 21 03/08/2021 urina lysis panel , auto Unknown Analyte Yellow Not Available [facility] With [address], [place], [address], 03/08/2021 16:15:00 03/08/20 21 03/08/2021 urina lysis panel , auto Unknown Analyte Clear Not Available [facility] With [address], [place], [address], 03/08/2021 16:15:00 03/08/20 21 03/08/2021 urina lysis panel , auto Unknown Analyte 1.015 Not Available [facility] With [address], [place], [address], 03/08/2021 16:15:00 03/08/20 21 03/08/2021 urina lysis panel , auto Unknown Analyte 1.003- 1.035 Not Available [facility] With [address], [place], [address], 03/08/2021 16:15:00 03/08/20 21 03/08/2021 urina lysis panel , auto Unknown Analyte 5.0 Not Available [facility] With [address], [place], [address], 03/08/2021 16:15:00 03/08/20 21 03/08/2021 urina lysis panel , auto Unknown Analyte 5.0-8. 0 Not Available [facility] With [address], [place], [address], 03/08/2021 16:15:00 03/08/20 21 03/08/2021 urina lysis panel , auto Unknown Analyte Negati ve Not Available [facility] With [address], [place], [address], 03/08/2021 16:15:00 03/08/20 21 03/08/2021 urina lysis panel , auto Unknown Analyte Negati ve Not Available [facility] With [address], [place], [address], 03/08/2021 16:15:00 03/08/20 21 03/08/2021 urina lysis panel , auto Unknown Analyte Negati ve Not Available [facility] With [address], [place], [address], 03/08/2021 16:15:00 03/08/20 21 03/08/2021 urina lysis panel , auto Unknown Analyte Negati ve Not Available [facility] With [address], [place], [address], 03/08/2021 16:15:00 03/08/20 21 03/08/2021 urina lysis panel , auto Unknown Analyte Negati ve Not Available [facility] With [address], [place], [address], 03/08/2021 16:15:00 03/08/20 21 03/08/2021 urina lysis panel , auto Unknown Analyte Negati ve Not Available [facility] With [address], [place], [address], 03/08/2021 16:15:00 03/08/20 21 03/08/2021 urina lysis panel , auto Unknown Analyte 250 mg/dl Not Available [facility] With [address], [place], [address], 03/08/2021 16:15:00 03/08/20 21 03/08/2021 urina lysis panel , auto Unknown Analyte Normal Not Available [facility] With [address], [place], [address], 03/08/2021 16:15:00 03/08/20 21 03/08/2021 urina lysis panel , auto Unknown Analyte Negati ve Not Available [facility] With [place] [address], [place], [address], 03/08/2021 16:15:00 03/08/20 21 03/08/2021 urina lysis panel , auto Unknown Analyte Negati ve Not Available [facility] With [place] [address], [place], [address], 03/08/2021 16:15:00 03/08/20 21 03/08/2021 urina lysis panel , auto Unknown Analyte Normal Not Available [facility] With [facility] [address], [place], [address], 03/08/2021 16:15:00 03/08/20 21 03/08/2021 urina lysis panel , auto Unknown Analyte Normal 1 mg/dl Not Available [facility] With [address], [place], [address], 03/08/2021 16:15:00 03/08/20 21 03/08/2021 urina lysis panel , auto Unknown Analyte Negati ve Not Available [facility] With [address], [place], [address], 03/08/2021 16:15:00 03/08/20 21 03/08/2021 urina lysis panel , auto Unknown Analyte Negati ve Not Available [facility] With [address], [place], [address], 03/08/2021 16:15:00 03/08/20 21 03/08/2021 urina lysis panel , auto Unknown Analyte Negati ve Not Available [facility] With [address], [place], [address], 03/08/2021 16:15:00 03/08/20 21 03/08/2021 urina lysis panel , auto Unknown Analyte Negati ve Not Available [facility] With [address], [place], [address], 03/08/2021 16:15:00 03/14/20 22 03/14/2022 URINE CULTU RE results Sour e: CCUR Colle cted: 03/14 13:42 Site: Recei clara : 03/14 19:41 URINE CULTU RE FINAL 03/16 12:05 03/16 No growt h day 2. Not Available [facility] [address] [facility], [place], [address], 03/16/2022 12:05:48 03/14/20 22 03/14/2022 urina lysis panel , auto Unknown Analyte Clean Catch Not Available [facility] With [address], [place], [address], 03/14/2022 13:34:05 03/14/20 22 03/14/2022 urina lysis panel , auto Unknown Analyte Yellow Not Available [facility] With [address], [place], [address], 03/14/2022 13:34:05 03/14/20 22 03/14/2022 urina lysis panel , auto Unknown Analyte Clear Not Available [facility] With [address], [place], [address], 03/14/2022 13:34:05 03/14/20 22 03/14/2022 urina lysis panel , auto Unknown Analyte 1.025 Not Available [facility] With [address], [place], [address], 03/14/2022 13:34:05 03/14/20 22 03/14/2022 urina lysis panel , auto Unknown Analyte 1.003- 1.035 Not Available [facility] With [address], [place], [address], 03/14/2022 13:34:05 03/14/20 22 03/14/2022 urina lysis panel , auto Unknown Analyte 5.0 Not Available [facility] With [address], [place], [address], 03/14/2022 13:34:05 03/14/20 22 03/14/2022 urina lysis panel , auto Unknown Analyte 5.0-8. 0 Not Available [facility] With [place] [address], [place], [address], 03/14/2022 13:34:05 03/14/20 22 03/14/2022 urina lysis panel , auto Unknown Analyte Negati ve Not Available [facility] With [address], [place], [address], 03/14/2022 13:34:05 03/14/20 22 03/14/2022 urina lysis panel , auto Unknown Analyte Negati ve Not Available [facility] With [facility] [address], [place], [address], 03/14/2022 13:34:05 03/14/20 22 03/14/2022 urina lysis panel , auto Unknown Analyte Negati ve Not Available [facility] With [place] [address], [place], [address], 03/14/2022 13:34:05 03/14/20 22 03/14/2022 urina lysis panel , auto Unknown Analyte Negati ve Not Available [facility] With [place] [address], [place], [address], 03/14/2022 13:34:05 03/14/20 22 03/14/2022 urina lysis panel , auto Unknown Analyte 30 mg/dl (+) Not Available [facility] With [facility] [address], [place], [address], 03/14/2022 13:34:05 03/14/20 22 03/14/2022 urina lysis panel , auto Unknown Analyte Negati ve Not Available [facility] With [place] [address], [place], [address], 03/14/2022 13:34:05 03/14/20 22 03/14/2022 urina lysis panel , auto Unknown Analyte 100 mg/dl Not Available [facility] With [place] [address], [place], [address], 03/14/2022 13:34:05 03/14/20 22 03/14/2022 urina lysis panel , auto Unknown Analyte Normal Not Available [facility] With [address], [place], [address], 03/14/2022 13:34:05 03/14/20 22 03/14/2022 urina lysis panel , auto Unknown Analyte 15 mg/dl (Sm) Not Available [facility] With [address], [place], [address], 03/14/2022 13:34:05 03/14/20 22 03/14/2022 urina lysis panel , auto Unknown Analyte Negati ve Not Available [facility] With [place] [address], [place], [address], 03/14/2022 13:34:05 03/14/20 22 03/14/2022 urina lysis panel , auto Unknown Analyte 1 mg/dl Not Available [facility] With [address], [place], [address], 03/14/2022 13:34:05 03/14/20 22 03/14/2022 urina lysis panel , auto Unknown Analyte Normal 1 mg/dl Not Available [facility] With [address], [place], [address], 03/14/2022 13:34:05 03/14/20 22 03/14/2022 urina lysis panel , auto Unknown Analyte Negati ve Not Available [facility] With [place] [address], [place], [address], 03/14/2022 13:34:05 03/14/20 22 03/14/2022 urina lysis panel , auto Unknown Analyte Negati ve Not Available [facility] With [place] [address], [place], [address], 03/14/2022 13:34:05 03/14/20 22 03/14/2022 urina lysis panel , auto Unknown Analyte Negati ve Not Available [facility] With [address], [place], [address], 03/14/2022 13:34:05 03/14/20 22 03/14/2022 urina lysis panel , auto Unknown Analyte Negati ve Not Available [facility] With [address], [place], [address], 03/14/2022 13:34:05 03/20/20 23 03/20/2023 urina lysis panel , auto Unknown Analyte Clean Catch Not Available [facility] With [address], [place], [address], 03/20/2023 14:05:32 03/20/20 23 03/20/2023 urina lysis panel , auto Unknown Analyte Yellow Not Available [facility] With [address], [place], [address], 03/20/2023 14:05:32 03/20/20 23 03/20/2023 urina lysis panel , auto Unknown Analyte Clear Not Available [facility] With [address], [place], [address], 03/20/2023 14:05:32 03/20/20 23 03/20/2023 urina lysis panel , auto Unknown Analyte 1.020 Not Available [facility] With [address], [place], [address], 03/20/2023 14:05:32 03/20/20 23 03/20/2023 urina lysis panel , auto Unknown Analyte 1.003- 1.035 Not Available [facility] With [place] [address], [place], [address], 03/20/2023 14:05:32 03/20/20 23 03/20/2023 urina lysis panel , auto Unknown Analyte 5.0 Not Available [facility] With [address] [place], [place], [address], 03/20/2023 14:05:32 03/20/20 23 03/20/2023 urina lysis panel , auto Unknown Analyte 5.0-8. 0 Not Available [facility] With [address], [place], [address], 03/20/2023 14:05:32 03/20/20 23 03/20/2023 urina lysis panel , auto Unknown Analyte Negati ve Not Available [facility] With [address], [place], [address], 03/20/2023 14:05:32 03/20/20 23 03/20/2023 urina lysis panel , auto Unknown Analyte Negati ve Not Available [facility] With [address], [place], [address], 03/20/2023 14:05:32 03/20/20 23 03/20/2023 urina lysis panel , auto Unknown Analyte Negati ve Not Available [facility] With [address], [place], [address], 03/20/2023 14:05:32 03/20/20 23 03/20/2023 urina lysis panel , auto Unknown Analyte Negati ve Not Available [facility] With [address], [place], [address], 03/20/2023 14:05:32 03/20/20 23 03/20/2023 urina lysis panel , auto Unknown Analyte 30 mg/dl (+) Not Available [facility] With [address], [place], [address], 03/20/2023 14:05:32 03/20/20 23 03/20/2023 urina lysis panel , auto Unknown Analyte Negati ve Not Available [facility] With [address], [place], [address], 03/20/2023 14:05:32 03/20/20 23 03/20/2023 urina lysis panel , auto Unknown Analyte Normal Not Available [facility] With [address], [place], [address], 03/20/2023 14:05:32 03/20/20 23 03/20/2023 urina lysis panel , auto Unknown Analyte Normal Not Available [facility] With [address], [place], [address], 03/20/2023 14:05:32 03/20/20 23 03/20/2023 urina lysis panel , auto Unknown Analyte 15 mg/dl (Sm) Not Available [facility] With [facility] [address], [place], [address], 03/20/2023 14:05:32 03/20/20 23 03/20/2023 urina lysis panel , auto Unknown Analyte Negati ve Not Available [facility] With [facility] [address], [place], [address], 03/20/2023 14:05:32 03/20/20 23 03/20/2023 urina lysis panel , auto Unknown Analyte Normal Not Available [facility] With [facility] [address], [place], [address], 03/20/2023 14:05:32 03/20/20 23 03/20/2023 urina lysis panel , auto Unknown Analyte Normal 1 mg/dl Not Available [facility] With [address], [place], [address], 03/20/2023 14:05:32 03/20/20 23 03/20/2023 urina lysis panel , auto Unknown Analyte Negati ve Not Available [facility] With [address], [place], [address], 03/20/2023 14:05:32 03/20/20 23 03/20/2023 urina lysis panel , auto Unknown Analyte Negati ve Not Available [facility] With [address], [place], [address], 03/20/2023 14:05:32 03/20/20 23 03/20/2023 urina lysis panel , auto Unknown Analyte Negati ve Not Available [facility] With [address], [place], [address], 03/20/2023 14:05:32 03/20/20 23 03/20/2023 urina lysis panel , auto Unknown Analyte Negati ve Not Available [facility] With [address], [place], [address], 03/20/2023 14:05:32 04/01/20 24 04/01/2024 urina lysis panel , auto Unknown Analyte Clean Catch Not Available [facility] With [address], [place], [address], 04/01/2024 12:45:40 04/01/20 24 04/01/2024 urina lysis panel , auto Unknown Analyte Yellow Not Available [facility] With [address], [place], [address], 04/01/2024 12:45:40 12/26/04/01/2024 urina lysis panel , auto Unknown Analyte Clear Not Available [facility] With [address], [place], [address], 04/01/2024 12:45:40 04/01/20 24 04/01/2024 urina lysis panel , auto Unknown Analyte 1.015 Not Available [facility] With [address], [place], [address], 04/01/2024 12:45:40 04/01/20 24 04/01/2024 urina lysis panel , auto Unknown Analyte 1.003- 1.035 Not Available [facility] With [address] [address], [place], [address], 04/01/2024 12:45:40 04/01/20 24 04/01/2024 urina lysis panel , auto Unknown Analyte 5.0 Not Available [facility] With [address], [place], [address], 04/01/2024 12:45:40 04/01/20 24 04/01/2024 urina lysis panel , auto Unknown Analyte 5.0-8. 0 Not Available [facility] With [address], [place], [address], 04/01/2024 12:45:40 04/01/20 24 04/01/2024 urina lysis panel , auto Unknown Analyte Negati ve Not Available [facility] [address], [place], [address], 04/01/2024 12:45:40 04/01/20 24 04/01/2024 urina lysis panel , auto Unknown Analyte Negati ve Not Available [facility] [address], [place], [address], 04/01/2024 12:45:40 04/01/20 24 04/01/2024 urina lysis panel , auto Unknown Analyte Negati ve Not Available [facility] [address], [place], [address], 04/01/2024 12:45:40 04/01/20 24 04/01/2024 urina lysis panel , auto Unknown Analyte Negati ve Not Available [facility] [address], [place], [address], 04/01/2024 12:45:40 04/01/2004/01/2024 urina lysis panel , auto Unknown Analyte 100 mg/dl (++) Not Available [facility] [address], [place], [address], 04/01/2024 12:45:40 04/01/20 24 04/01/2024 urina lysis panel , auto Unknown Analyte Negati ve Not Available [facility] With [address], [place], [address], 04/01/2024 12:45:40 04/01/20 24 04/01/2024 urina lysis panel , auto Unknown Analyte >1000 mg/dl Not Available [facility] [address], [place], [address], 04/01/2024 12:45:40 04/01/20 24 04/01/2024 urina lysis panel , auto Unknown Analyte Normal Not Available [facility] [place] [address], [place], [address], 04/01/2024 12:45:40 04/01/20 24 04/01/2024 urina lysis panel , auto Unknown Analyte Negati ve Not Available [facility] With [place] [address], [place], [address], 04/01/2024 12:45:40 04/01/20 24 04/01/2024 urina lysis panel , auto Unknown Analyte Negati ve Not Available [facility] With [address], [place], [address], 04/01/2024 12:45:40 04/01/20 24 04/01/2024 urina lysis panel , auto Unknown Analyte Normal Not Available [facility] With [address], [place], [address], 04/01/2024 12:45:40 04/01/2004/01/2024 urina lysis panel , auto Unknown Analyte Normal 1 mg/dl Not Available [facility] With [address], [place], [address], 04/01/2024 12:45:40 04/01/20 24 04/01/2024 urina lysis panel , auto Unknown Analyte Negati ve Not Available [facility] [address], [place], [address], 04/01/2024 12:45:40 04/01/20 24 04/01/2024 urina lysis panel , auto Unknown Analyte Negati ve Not Available [facility] With [address], [place], [address], 04/01/2024 12:45:40 04/01/20 24 04/01/2024 urina lysis panel , auto Unknown Analyte 50 Davis/ul Not Available [facility] [address], [place], [address], 04/01/2024 12:45:40 04/01/20 24 04/01/2024 urina lysis panel , auto Unknown Analyte Negati ve Not Available [facility] With [address], [place], [address], 04/01/2024 12:45:40 Result Notes None recorded. Problems Name Problem SNOMED Code Status Onset Date Resolution Date Notes Provider Name and Address Organization Details Recorded Time Malignant neoplasm of prostate 607473655 Active 2014 Provide r: Jason Witt ;Status : Active Not Available [facility] 6 04:42:34 Problem Notes None recorded. Procedures Surgical History Date Name Laterality Status Provider Name and Address Organization Details Recorded Time Hernia Repair completed [facility] 03/11/2019 16:41:19 Prostate Surgery completed [facility] 03/11/2019 16:41:25 Imaging Results None recorded. Procedure Notes None recorded. Medical Equipment None Reported. Allergies Allergen ID Allergen Name Allergen Category Reaction Reaction Severity Criticality Documentation Date Start Date Code Code System Note Provider Name and Address Organization Details Recorded Time 298304 latex environme nt,medica tion Not available Not available Not available 03/11/2019 95025 91 [facility] 16:42:27 Medications Name Sig Start [...] Updated DateTime 03/08/2021 182.88 cm 30.5 kg/m2 363209.28 g [facility] 03/08/2021 16:08:12 Date Recorded Body height Body mass index (BMI) Body weight Provider Name and Address Organization Details Last Updated DateTime 03/14/2022 182.88 cm 30.5 kg/m2 728043.28 g Ananth [facility] 03/14/2022 13:12:49 Date Recorded Body height Body mass index (BMI) Body weight Body temperature Provider Name and Address Organization Details Last Updated DateTime 03/16/2020 182.88 cm 30.5 kg/m2 480430.28 g 97.3 [degF] [facility] 03/16/2020 13:25:58 Date Recorded Body height Body mass index (BMI) Body weight Provider Name and Address Organization Details Last Updated DateTime 03/20/2023 182.88 cm 30.5 kg/m2 652878.28 g Ananth Bennett [facility] 03/20/2023 13:59:42 Date Recorded Body height Body mass index (BMI) Body weight Provider Name and Address Organization Details Last Updated DateTime 04/01/2024 182.88 cm 29.2 kg/m2 25430.36 paulette Guajardo [facility] 04/01/2024 12:50:31 Social History Question Answer Notes LastModified by Organizat ion Details LastModified Time Tobacco Smoking Status Current Every Day Smoker Gaudenciofernando Levy [facility] 03/11/2019 16:40:32 Marital Status lela [...] ICD10 Code Diagnosis IMO Codes Diagnosis Note [id number] MD [facility] [address] [address] 03/11/2019 15:31:08 04/06/2019 10:37:33 Spermatocele 23018100 N43.40 [id number] MD [facility] [address] [address] 09/16/2019 12:32:59 09/16/2019 13:20:40 Prostate specific antigen outside reference range 715373272 R97.20 N40.2 N40.3 [id number] JOSHUA MCDERMOTT MD [facility] [address],[place] [address] 03/16/2020 13:04:57 03/17/2020 15:07:29 History of malignant neoplasm of prostate 227756631 Z85.46 [id number] JOSHUA MCDERMOTT MD [facility] [address],[place] [address] 8 03/08/2021 15:17:23 03/09/2021 15:02:39 History of malignant neoplasm of prostate 292650000 Z85.46 Stress inc ontinence after prostatectomy 544122832 N39.3 [id number] JOSHUA MCDERMOTT MD [facility] [address],[place] [address] 8 03/14/2022 13:09:06 03/22/2022 12:54:09 Urinary tract infectious disease 14010232 N39.0 History of malignant neoplasm of prostate 477051110 Z85.46 Stress inc ontinence after prostatectomy 924204397 N39.3 [id number] JOSHUA MCDERMOTT MD [facility] [address],[place] [address] 8 03/20/2023 13:48:37 03/20/2023 14:21:00 Urinary tract infectious disease 17172682 N39.0 History of malignant neoplasm of prostate 391579228 Z85.46 Stress inc ontinence after prostatectomy 251828126 N39.3 [id number] JOSHUA MCDERMOTT MD [facility] [address],[place] [address] 8 04/01/2024 12:42:19 04/01/2024 16:46:06 History of malignant neoplasm of prostate 500343084 Z85.46 Health Concerns Section Related Observation LastModified by Organization Detai ls LastModified Time None Recorded Concern Status LastModified by Organization Details LastModified Time None Recorded Advance Directives Directive None Recorded Payers Insurance Date Sequence Insurance Name Policy Number Policy Adkins Covered Member ID Adkins Member ID Guarantor Name 06/15/2024 2 [place] [id number] Kirby Carroll Christiano [id number] Christiano 04/02/2024 2 [place] [id number] Roberto Carroll Christiano [id number] Kirby [address] Christiano 06/07/2024 1 [place] Kirby Crenshawp [id number] Kirby Carroll Christiano 04/02/2024 2 [place] [id number] Kirby Carroll Christiano [id number] Kirby Carroll Christiano 04/02/2024 2 [place]MEDIC[place] REPLACEMENT REGIONAL PPO) Kirby Crenshawp [id number] Christiano Notes Date Note [...] times daily without nocturia. JOSHUA MCDERMOTT MD [address] [place] [address], [address], [facility] 03/19/2020 18:09:39 03/08/2021 text/html 71-year-old male in the office for follow-up evaluation of adenocarcinoma of the prostate status post robotic assisted laparoscopic radical prostatectomy in 2014. He has occasional post prostatectomy incontinence. No hematuria or dysuria. He voids 4 or 5 times daily without nocturia. JOSHUA MCDERMOTT MD [address] [place] [address], [address], [facility] 03/09/2021 07:00:04 03/14/2022 text/html 72-year-old male in the office for follow-up evaluation of adenocarcinoma of the prostate status post robotic assisted laparoscopic radical prostatectomy in 2014. He has occasional post prostatectomy incontinence. He reports increase leakage, he goes through 2 pads today. He reports kidney function is worsening. 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 No gross hematuria or dysuria. JOSHUA MCDERMOTT MD [address] [place] [address], [address], [facility] 03/17/2022 11:12:24 03/20/2023 text/html 73-year-old male in the office for follow-up evaluation of adenocarcinoma of the prostate status post robotic assisted laparoscopic radical prostatectomy in 2014. He has occasional post prostatectomy incontinence, 1 pad per day. No hesitancy. Occasional urgency. Daytime frequency 3-4 times. No nocturia. No gross hematuria. No dysuria. JOSHUA MCDERMOTT MD [address] [place] [address] [place], [address], [facility] 03/23/2023 11:01:16 04/01/2024 text/html 74-year-old [...] urge incontinence, no nocturia. JOSHUA MCDERMOTT MD [address] [place] [address], [address], [facility] 04/02/2024 10:41:18
--- OUTSIDE RECORDS SUMMARY | 2025-04-02 11:41 | XMS_ITS | Encounter Summary ---
Author Organization [facility] Address [address] [place] [address] Care Team Providers Care Llama Farmer Name Role Phone Otilio Menendez MD Primary Care Provider [phone]- [phone] Encounter Details Date Type Department Care Team (Latest Contact Info) Description 02/28/2025 Travel Social History Tobacco Use Types Packs/Day Years Used Date Smoking Tobacco: Every Day Cigarettes 1.5 63 Started: 1963 Passive Smoke Exposure: Current Smokeless Tobacco: Never Alcohol Use Standard Drinks/Week Comments Not Currently 0 (1 standard drink = 0.6 oz pur e alcohol) [facility] Utilities Answer Date Recorded In the past 12 months has Staff Ranker, gas, oil, or water [employer] threatened to shut off services in your [...] Description 06/06/2025 10:30 AM EST Office Visit [facility] [address] [place] [address] Kirby Stack PA [address] [place] [id number] 12/05/2025 11:30 AM EDT Office Visit [facility] [address] [place] [address] Mark Guerra, DO [address] [place] [address] documented as of this encounter Visit Diagnoses Not on filedocumented in this encounter Care Teams Llama Farmer Relationship Specialty Start Date End Date Otilio Menendez MD [address] [place] [address] [place] [address] PCP - General Family Medicine 10/29/22 documented as of this encounter
--- OUTSIDE RECORDS SUMMARY | 2025-04-02 11:41 | XMS_ITS ---
Author Organization [facility] Address [address] [place] [address] Care Team Providers Care Box Press Operator Name Role Phone Otilio Menendez MD Primary Care Provider +1- [phone] Active Problems Problem Noted Date Diagnosed Date [...] apnea 12/11/2022 Coronary artery disease invo lving [place] coronary artery of [place] heart without angina pectoris 10/29/2022 Essential hypertension 10/29/2022 Hyperlipidemia LDL goal <100 10/29/2022 Malignant tumor of prostate 01/30/2015 Overview (10/29/2022): Provider: Jason Wtit;Status: Active Current Treatment and Therapy Plans No current plan information found. Past Treatment and Therapy Plans No past plan information found. Lifetime Dose Tracking * Chemical Lifetime Dose Automatic Entry Manual Entr y Cumulative Air Kerma 14 mGy 0 mGy 14 mGy Fluoro Time 5.3 Minutes 0 Minutes 5.3 Minutes Resolved Problems Problem Noted Date Diagnosed Date Resolved Date Torn Achilles tendon 08/06/2023 024 Gastritis 12/11/2022 02/04/2024
--- OUTSIDE RECORDS SUMMARY | 2025-04-02 11:41 | XMS_ITS ---
Laboratory report Created on: March 08, 2025 JOHANA ARZATE : 1950 Sex: Male Author Organization Unknown PROBLEMS Problems List Code Description RESULTS Laboratory Orders Date Order Code Test 2023-03-27 [id number] AFP, SERUM, TUMO R MARKER Laboratory Results Date LOINC Test Value Unit Reference Range Interpre tation 2023-03-27 [id number] AFP, SERUM, TUMO R MARKER 2.5 NG/ML 0.0-8.4
[2025-04-02 11:42] LABS: Chloride 107 mmol/L (98-107)
[2025-04-02 11:43] LABS: Albumin Level 4.4 g/dl (3.5-5.0); Potassium 5.7 mmoL/L (3.5-5.1); Sodium 134 mmol/L (136-145)
[2025-04-02 11:45] LABS: Alanine Aminotransferase 38 U/L (12-78); Albumin/Globulin Ratio 1.4 (1.1-1.8); Anion Gap 12.7 mEq/L (5-15); Aspartate Amino Transferase 57 U/L (17-59); Blood Urea Nitrogen 44 mg/dl (9-20); Carbon Dioxide 20 mmol/L (22.0-30.0); Creatinine Clearance Estimated 47 mL/min (50-200); Creatinine,Serum 2.00 mg/dl (0.66-1.25); Estimated Glomerular Filt Rate 33 ml/min (>60); GFR (African American) 40 ML/MIN (>60); Globulin 3.1 g/dL (1.3-3.2); Total Protein,Serum 7.5 g/dl (6.3-8.2)
[2025-04-02 11:46] LABS: Alkaline Phosphatase 108 U/L (38-126); Bilirubin,Total 0.8 mg/dl (0.2-1.3); Calcium 9.7 mg/dl (8.4-10.2); Glucose 291 mg/dl (74-100)
[2025-04-02 12:03] LABS: Troponin I < 0.01 ng/ml (0.00-0.034)
[2025-04-02 12:13] LABS: Coronavirus 19, PCR Not Detected (NotDetected); Influenza A, PCR Not Detected (NotDetected); Influenza B, PCR Not Detected (NotDetected)
[2025-04-02 12:20] LABS: Acetone, Serum (Rapid) None Detected (None Detect)
[2025-04-02 12:21] LABS: Microscopic, Urine URINE MICROSCOPIC (MICROSCOPIC)
[2025-04-02 12:24] LABS: Bilirubin,Urine Negative (Negative); Color,Urine YELLOW (Yellow); Glucose,Urine (UA) 1+ (Negative); Ketones,Urine Negative (Negative); Leukocyte Esterase,Urine Negative (Negative); PH,Urine 5.0 (5.0-8.5); Protein,Urine Negative (Negative); Specific Gravity, Urine 1.025 (1.005-1.030); Urobilinogen,Urine 0.2 EU/dl (0.2)
[2025-04-02 12:32] LABS: Squamous Epithelial Cell,Urine Occasional #/hpf (0-5)
[2025-04-02] MEDS: ACETAMINOPHEN 500MG TAB 500 MG PO (12:32)
[2025-04-02] MEDS: RINGERS SOLUTION,LACTATED 500 ML 999 ML IV (12:34)
[2025-04-02] MEDS: IOPAMIDOL-370 (76%);100ML BOTTLE 80 ML IV (12:40)
[2025-04-02] MEDS: 0.9 % SODIUM CHLORIDE 50 ML VIAL IV (12:40)
[2025-04-02] MEDS: SODIUM CHLORIDE 0.9% 10ML SYR (RAD ONLY) 10 ML IV (12:40)
[2025-04-02 15:40] LABS: Reflex Lactic Add Lactic Reflex
== END 2025-04-02 14:28 | disposition home or self-care (01) ==
PROVIDERS: Nurse Practitioner Family; Emergency Provider Emergency Medicine; PCP Family Medicine
DX: K92.2 Gastrointestinal hemorrhage, unspecified (principal); R10.31 Right lower quadrant pain; E87.5 Hyperkalemia; R74.02 Elevation of levels of lactic acid dehydrogenase [LDH]; E11.65 Type 2 diabetes mellitus with hyperglycemia; R55 Syncope and collapse
CPT/HCPCS: 70450; 71045; 74174; 80053; 81001; 82009; 82803; 84484; 85025; 87636; 93005; 99285; J7120; Q9967